=== PATIENT | male | born 1970 | race Caucasian/White ===

== ENCOUNTER 2023-06-26 11:16 | Outpatient (OUT) | payer BC, SELFPAY | END 2023-06-26 11:17 | disposition home or self-care (01) | LOC: PST 11:16 | PROVIDERS: PCP Family Medicine; Visit Provider Surgery | DX: Z01.818 Encounter for other preprocedural examination (principal); Z12.11 Encounter for screening for malignant neoplasm of colon ==

== ENCOUNTER 2023-06-28 07:35 | Day surgery (SDC) | payer BC, SELFPAY ==
[2023-06-28 08:01] VITALS: BP 118/80; PULSE 69; RESP 16; TEMP 35.9; O2SAT 99; BMI 34.5
[2023-06-28] MEDS: LACTATED RINGER'S SOLUTION 1,000 ML 50 ML IV (08:21)
--- NOTE | 2023-06-28 08:42 | PM.GSPRC ---
Date of procedure: 06/28/23 Indications for Procedure: screening for cancer Pre-op diagnosis: screening for cancer Post-op diagnosis: same as pre-op (diverticulosis sigmoid and descending colon) Procedure: colonoscopy Findings: diverticulosis Anesthesia: MAC Surgeon: Sebastian More Procedure Summary: PROCEDURE: The patient was taken to the Endoscopy Suite, placed in the left lateral recumbent position, given IV sedation as above. A rectal digital exam was performed. The sphincter tone was found to be normal. No rectal masses were appreciated. prostate was smooth nonenlarged without nodules.The Olympus video colonoscope was advanced under direct visualization to the rectum, sigmoid colon, descending colon, transverse colon and ascending colon to the ileocecal valve. The underside of the valve was seen. appendiceal lumen was visualized.The scope was slowly withdrawn with air being desufflated as it was withdrawn. No gross tumors or polyps were seen.there were diverticuli in the descending and sigmoid colon. prep was excellent. The patient tolerated the procedure well and went to the Recovery Area in satisfactory condition. I recommend the patient consume high-fiber diet for the rest of his life and have a screening colonoscopy in ten years. Estimated blood loss (mL): 0 Complications: No Pathology: none sent Condition: stable Disposition: PACU
[2023-06-28 10:48] VITALS: BP 91/55; PULSE 72; RESP 16; O2SAT 95
[2023-06-28 11:12] VITALS: BP 100/60; PULSE 63; RESP 16; O2SAT 96
== END 2023-06-28 11:20 | disposition home or self-care (01) ==
PROVIDERS: PCP Family Medicine; Visit Provider Surgery
PROC: (CPT 45378; principal; 2023-06-28 08:40)
DX: Z12.11 Encounter for screening for malignant neoplasm of colon (principal); K57.30 Diverticulosis of large intestine without perforation or abscess without bleeding; I10 Essential (primary) hypertension; E66.9 Obesity, unspecified; Z68.35 Body mass index [BMI] 35.0-35.9, adult; M19.90 Unspecified osteoarthritis, unspecified site; K42.0 Umbilical hernia with obstruction, without gangrene
CPT/HCPCS: 45378; J2704

== ENCOUNTER 2023-07-03 13:16 | Outpatient (OUT) | payer BC, SELFPAY ==
--- NOTE | 2023-07-03 13:17 | ECG_ITS ---
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
== END 2023-07-03 13:17 | disposition home or self-care (01) ==
PROVIDERS: PCP Family Medicine; Visit Provider Surgery
DX: Z01.810 Encounter for preprocedural cardiovascular examination (principal); K42.0 Umbilical hernia with obstruction, without gangrene
CPT/HCPCS: 80053; 93005

== ENCOUNTER 2023-07-05 08:46 | Outpatient (OUT) | payer BC, SELFPAY ==
[2023-07-05 09:09] LABS: Estimated Average Glucose 120 mg/dL; Glycohemoglobin A1C 5.8 % (4.5-6.2)
[2023-07-05 09:14] LABS: Basophils Absolute Auto 0.1 10^3/uL (0.0-0.1); Basophils Percent Auto 1.3 % (0.2-2.0); Eosinophils Absolute Auto 0.5 10^3/uL (0.0-0.7); Eosinophils Percent Auto 6.1 % (0.9-7.0); Hematocrit 38.9 % (42.0-54.0); Hemoglobin 12.3 g/dL (14.0-18.0); Immature Granulocytes Abs Auto 0.02 10^3/uL (0.00-0.03); Immature Granulocytes Pct Auto 0.3 % (0.0-0.5); Lymphocytes Absolute Auto 3.3 10^3/uL (1.2-3.8); Lymphocytes Percent Auto 41.6 % (20.5-60.0); Mean Corpuscular HGB Conc 31.6 g/dL (29.9-35.2); Mean Corpuscular Hemoglobin 23.4 pg (25.9-34.0); Mean Platelet Volume 9.2 fL (9.5-13.5); Monocytes Absolute Auto 0.6 10^3/uL (0.3-0.8); Monocytes Percent Auto 7.8 % (1.7-12.0); Neutrophils Absolute Auto 3.4 10^3/uL (1.4-6.5); Neutrophils Percent Auto 42.9 % (43.0-75.0); Platelet Count 361 10^3/uL (150-450); Red Blood Count 5.26 10^6/uL (4.70-6.10); Red Cell Distribution Width 17.4 % (11.0-15.0)
[2023-07-05 09:59] LABS: Alanine Aminotransferase 59 U/L (16-63); Albumin Level 3.9 g/dL (3.4-5.0); Alkaline Phosphatase 81 U/L (46-116); Anion Gap 13.4; Aspartate Amino Transferase 31 U/L (15-37); BUN Creatinine Ratio 14.2; Bilirubin Total 0.6 mg/dL (0.2-1.0); Carbon Dioxide 26.3 mmol/L (21.0-32.0); Chloride 103 mmol/L (98-107); Chol HDL Ratio 5.4; Cholesterol 207 mg/dL (<=200); Estimated GFR (African America >60 (>=60); Estimated GFR (Non-African Ame 50 (>=60); Globulin 3.8 g/dL; Glucose 103 mg/dL (74-106); HDL Cholesterol 38 mg/dL (40-60); Potassium 3.7 mmol/L (3.5-5.1); Sodium 139 mmol/L (136-145); Thyroid Stimulating Hormone 3.132 uIU/mL (0.358-3.740); Total Protein 7.7 g/dL (6.4-8.2); Triglycerides 174 mg/dL (<=150); VLDL CHOLESTEROL 34.8 mg/dL
[2023-07-05 10:05] LABS: Prostate Specific Antigen Scrn 0.78 ng/mL (<=4.00)
== END 2023-07-05 08:47 | disposition home or self-care (01) ==
LOC: LAB 08:47
PROVIDERS: PCP Family Medicine; Visit Provider Family Medicine
DX: Z00.00 Encounter for general adult medical examination without abnormal findings (principal); Z12.5 Encounter for screening for malignant neoplasm of prostate
CPT/HCPCS: 36415; 80053; 80061; 83036; 84443; 85025; G0103

== ENCOUNTER 2023-07-12 06:28 | Day surgery (SDC) | payer BC, SELFPAY ==
[2023-07-03 13:34] VITALS: BP 118/78; PULSE 79; RESP 18; TEMP 36.2; O2SAT 97; BMI 33.7
[2023-07-12] VITALS (16 sets, daily range): BP systolic 124–135; BP diastolic 80–95; PULSE 64–77; RESP 6–17; TEMP 36.2–36.4; O2SAT 80–100; BMI 32.6
[2023-07-12] MEDS: LACTATED RINGER'S SOLUTION 1,000 ML 50 ML IV (07:13)
--- NOTE | 2023-07-12 07:13 | PM.GSPRC ---
Date of procedure: 07/12/23 Indications for Procedure: incarcerated umbilical hernia Pre-op diagnosis: incarcerated umbilical hernia Post-op diagnosis: same as pre-op Procedure: robotic Incarcerated umbilical hernia repair with mesh Findings: 2.5 cm incarcerated umbilical hernia Anesthesia: RICHARD Surgeon: Sebastian More Procedure Summary: Operative Note: Procedure: Robotic?assisted laparoscopic umbilical?hernia repair with mesh placement; defect measured 2.5 cm Specimens: None Complications: ?None Manuel Burgos karen 53 y/o male and was found to have a umbilical hernia. We offered the patient a robotic umbilical hernia repair. After a thorough explanation of the risks, benefits, and alternatives the patient agreed to proceed with the operation. Procedure in Detail: After again explaining the risks and benefits of the procedure in the preoperative care unit consent was obtained.? The patient was taken back to the operative room and placed on the operative room table. After undergoing general endotracheal anesthesia, preoperative antibiotics were given.? Appropriate time-out was performed.? Right arm was tucked at the side.? Then the bed was a positioned appropriately.? The abdomen was prepped and draped in normal sterile fashion. We entered the abdomen in the left upper quadrant utilizing a 5 mm Visiport.? We began insufflation at low-flow patient tolerated this insufflation of the abdomen was then increased to 15 mmHg.? 2 additional 8 mm robotic trocars placed along the left lateral abdomen under direct visualization. The 5 mm port was then upsized to an 8 mm robotic trocar. The robotic scope and camera were brought in. The [employer] robot was docked. At this point began with taking down the adhesions to the anterior abdominal wall, in the location of the hernia.the peritoneum was taken down for transabdominal preperitoneal repair. This was performed with scissors and electrocautery. The hernia sac was then reduced. The fascia was freed up from the preperitoneal fat. The fascia was reapproximated using 0 V-lock suture. The abdomen was deinsufflated to 8 mmHg to allow adequate closure of the fascia, under no tension. At this time we brought in an appropriately sized piece of mesh as listed above and placed it in the peritoneal pocket. It was Surgipro mesh. 9 cm. Grippies were up.the mesh laid flatly. Once we were happy with mesh placement,peritoneal flap was then closed over the mesh with 3-0 v lock suture in running continuous fashion; the abdomen was desufflated.? Skin was reapproximated with interrupted 4-0 Monocryl.? Steri-Strips were placed over all skin incisions. Sponge, lap, and instrument counts were correct x2 at the end of the procedure. The patient tolerated the procedure well, was extubated in the operating room, and taken to the PACU in excellent condition. ? Manual Arts Therapy Teacher: MIRIAN Recinos Estimated blood loss (mL): 0 Complications: No Pathology: none sent Condition: stable Disposition: PACU
[2023-07-12] MEDS: 0.9 % SODIUM CHLORIDE 10 ML INJ (07:55)
[2023-07-12] MEDS: BUPIVACAINE LIPOSOME/PF 266 MG/13.3 ML VIAL INJ (07:55)
[2023-07-12] MEDS: BUPIVACAINE HCL 0.25% PF 25 MG/10 ML VIAL 20 ML INJ (07:55)
--- NOTE | 2023-07-12 10:53 | RESP.RT ---
Pt initially on simple mask/10L with SpO2 of 91%, sluggish respiratory effort post anesthesia. Placed on 100% FiO2 initially and able to wean down to 30% within 23 minutes post bipap initiation. Removed BiPap and placed on RA at 1023, as pt was awake and alert. 95% SpO2 on RA
== END 2023-07-12 11:30 | disposition home or self-care (01) ==
PROVIDERS: PCP Family Medicine; Visit Provider Surgery
PROC: (CPT 49592; principal; 2023-07-12 07:30)
DX: K42.0 Umbilical hernia with obstruction, without gangrene (principal); I10 Essential (primary) hypertension; E66.9 Obesity, unspecified; Z68.35 Body mass index [BMI] 35.0-35.9, adult; M19.90 Unspecified osteoarthritis, unspecified site
CPT/HCPCS: 49592; 94660; C1781; J2704

== ENCOUNTER 2023-07-20 10:41 | Outpatient (OUT) | payer BC, SELFPAY ==
[2023-07-21 04:07] LABS: Testosterone 366 ng/dL (264-916)
== END 2023-07-20 10:42 | disposition home or self-care (01) ==
LOC: LAB 10:42
PROVIDERS: PCP Family Medicine; Visit Provider Urology
DX: E29.1 Testicular hypofunction (principal)
CPT/HCPCS: 36415; 84403

== ENCOUNTER 2023-08-08 20:54 | Outpatient (OUT) | payer BC, SELFPAY | END 2023-08-08 20:55 | disposition home or self-care (01) | LOC: SLEEP 20:54 | PROVIDERS: PCP Family Medicine; Visit Provider Family Medicine | DX: G47.33 Obstructive sleep apnea (adult) (pediatric) (principal) | CPT/HCPCS: 95810 ==

== ENCOUNTER 2023-08-15 13:52 | Outpatient (OUT) | payer BC, SELFPAY ==
--- NOTE | 2023-08-15 | CONS_ITS ---
CONSULTATION DATE: 08/15/2023 CHIEF COMPLAINT: Includes severe bilateral lower back pain, worse on the left than the right side. HISTORY OF PRESENT ILLNESS: Review of systems, past medical/surgical history were obtained and documented on the health questionnaire and is available upon request. He is a 53-year-old male, reports having pain for many years. He has undergone a radiofrequency ablation of what appears to be L3, L4 and L5 medial branches bilaterally, more than two and a half years ago. He reports he had significant reduction in pain symptoms, lasting approximately two years, with recurrence of pain back to his baseline. He describes his pain as being 4-7/10 pain, sharp in character, increased with activities such as standing, walking, performing transitioning maneuvers. Driving is quite painful for the patient. He denies any change in bowel and bladder habits or new sensorimotor changes in the lower extremities. EXAM: Notable for patient having no clinical radiculopathy or myelopathy involving his lower extremities. Patient did have severe pain when performing lumbar facet loading maneuvers occurring bilaterally at L4-5, L5-S1, worse on the left than the right side, with associated myofascial spasm of the lumbar paravertebral muscles. Spasm actually is worse on the right than the left side, involving the iliocostalis. IMPRESSION: Our impression is patient with chronic pain secondary to lumbosacral spondylosis and myofascial spasm. RECOMMENDATIONS: I have discontinued Flexeril. I have placed him on baclofen 10 mg pills, half a pill b.i.d. and half to one at h.s. I have asked him to undergo lumbosacral spine films, PA and lateral views; aquatic therapy and to proceed with a diagnostic bilateral L4-5, L5-S1 medial branch block bilaterally, under fluoroscopic guidance. As part of providing excellent, safe, comprehensive care, the following was completed at our patient's visit: 1. A medication reconciliation and review to ensure accurate knowledge of current/active medications, including asking our patients to inform us about any [id number] medications or herbal remedies/nutritional supplements/alternative remedies. 2. A review to specifically ensure our patients have had annual screening for: elevated body mass index (BMI, see intake chart for exact total), tobacco use, screening for depression, and screening for unhealthy alcohol use. When screening is concerning, patients are provided with education and the specific recommendation to discuss the concerning health issue and treatment options with their primary care provider. SHAYAN
== END 2023-08-15 13:53 | disposition home or self-care (01) ==
LOC: PM 14:07
PROVIDERS: PCP Family Medicine; Visit Provider Anesthesiology Pain Medicine
DX: M54.50 Low back pain, unspecified (principal); M51.37 Other intervertebral disc degeneration, lumbosacral region; M47.816 Spondylosis without myelopathy or radiculopathy, lumbar region; M62.838 Other muscle spasm
CPT/HCPCS: 72110; G0463

== ENCOUNTER 2023-08-15 15:00 | Outpatient (OUT) | payer BC, SELFPAY ==
--- NOTE | 2023-08-15 15:14 | XR_ITS ---
[facility] [place] [id number] Patient Name: AMADA ROSAS MRN: [id number] date: 1970 Sex: M Assigned Patient Location: [facility] Current Patient Location: Accession/Order Number: [id number] Exam Date: 08/15/2023 15:08 Report Date: 08/16/2023 01:52 At the request of: EMELIA MORE Procedure: XR lumbar spine min 4V EXAMINATION: XR lumbar spine min 4V HISTORY: Low Back Pain , chronic COMPARISON: XR spine lumbar 02/10/2021 FINDINGS: BONES: Mild degenerative facet arthropathy L4-L5, L5-S1. Normal height and alignment of the vertebral bodies. DISC SPACES: Mild narrowing L5-S1. PARASPINOUS: Negative. No paraspinous abnormality is seen. OTHER: Negative. XR/XR lumbar spine min 4V IMPRESSION: 1. Mild degenerative changes of lower lumbar spine with mild progression of L5-S1 degenerative disc disease. Electronically authenticated by: CHRISTOFER SCHAEFFER Date: 08/16/2023 01:52
== END 2023-08-15 15:01 | disposition home or self-care (01) ==
LOC: RAD 15:01
PROVIDERS: PCP Family Medicine; Visit Provider Anesthesiology Pain Medicine
DX: M54.50 Low back pain, unspecified (principal); M51.37 Other intervertebral disc degeneration, lumbosacral region; M47.816 Spondylosis without myelopathy or radiculopathy, lumbar region
CPT/HCPCS: 72110

== ENCOUNTER 2023-08-16 20:55 | Outpatient (OUT) | payer BC, SELFPAY | END 2023-08-16 20:56 | disposition home or self-care (01) | LOC: SLEEP 20:56 | PROVIDERS: PCP Family Medicine; Visit Provider Family Medicine | DX: G47.33 Obstructive sleep apnea (adult) (pediatric) (principal) | CPT/HCPCS: 95811 ==

== ENCOUNTER 2023-08-21 13:58 | Outpatient (RCR) | payer BC, SELFPAY | END 2023-09-10 09:00 | disposition home or self-care (01) | LOC: PT 13:58 | PROVIDERS: PCP Family Medicine; Visit Provider Nurse Practitioner | DX: M47.816 Spondylosis without myelopathy or radiculopathy, lumbar region (principal) | CPT/HCPCS: 20561; 97110; 97113; 97140; 97161 ==

== ENCOUNTER 2023-08-31 07:02 | Day surgery (SDC) | payer BC, SELFPAY ==
[2023-08-31 09:18] VITALS: BP 107/63; PULSE 73; RESP 16; TEMP 36.1; O2SAT 99
[2023-08-31 09:58] VITALS: BP 136/85; PULSE 86; RESP 18; O2SAT 95
[2023-08-31 10:00] VITALS: BP 118/79; PULSE 67; RESP 18; O2SAT 96
[2023-08-31] MEDS: BUPIVACAINE HCL 0.25% PF 25 MG/10 ML VIAL 6 ML INJ (10:05)
--- OUTSIDE RECORDS SUMMARY | 2023-08-31 10:22 | XMS_ITS | CCD ---
Author Name Unknown Address [address] [place] [address] Organization [facility] Care Team Providers Care Credit Authorizer Name Role Phone Kell Bowling MD Primary Care Provider [phone] TAWNYA, DR KELL Monet Primary Care Unavailable KASSIE Isidro, DR LIZBETH Donald Attending Unavaila ble KASSIE Isidro, DR LIZBETH Donald Consulting Unavaila marilin Isidro, DR LIZBETH Donald Admitting Unavaila ble TAWNYA, DR KELL Monet Primary Care Unavailable FISHER ., DR CINTRON Attending Unavailable FISHER ., DR CINTRON Consulting Unavailable FISHER ., DR CINTRON Admitting Unavailable HOY ., DR CORRIGAN Attending Unavailable HOY ., DR CORRIGAN Consulting Unavailable HOY ., DR CORRIGAN Admitting Unavailable BOWLING, DR KELL Monet Primary Care Unavailable BOWLING, DR KELL Monet Primary Care Unavailable GRRONDA ., DR CONNIE Monet Admitting Unavaila ble PEÑA ., DR CNONIE Monet Attending Unavaila ble TAWNYA, DR KELL Monet Primary Care Unavailable GRILLIAme ., DR CONNIE Monet Admitting Unavaila ble PEÑA ., DR CONNIE Monet Attending Unavaila ble TAWNYA, DR KELL Monet Primary Care Unavailable GRRONDA ., DR CONNIE Monet Admitting Unavaila ble PEÑA ., DR CONNIE Monet Attending Unavaila ble TAWNYA, DR KELL Monet Primary Care Unavailable GRILLIAme ., DR CONNIE Monet Attending Unavaila ble PEÑA ., DR CONNIE Monet Consulting Unavaila ble PEÑA ., DR CONNIE Monet Admitting Unavaila ble LAURY, DR CHRISOTFER Hernandez Consulting Unavailable TAWNYA, DR KELL Monet Primary Care Unavailable FISHER ., DR CINTRON Attending Unavailable FISHER ., DR CINTRON Consulting Unavailable FISHER ., DR CINTRON Admitting Unavailable BOWLING, DR KELL Monet Admitting Unavailable BOWLING, DR KELL Monet Attending Unavailable BOWLING, DR KELL Monet Consulting Unavailable TAWNYA, DR KELL Monet Primary Care Unavailable Chata Page Attending Unavailable Chata Page Attending Unavailable Chata Page Attending Unavailable Kell Bowling Unavailable Allergies Allergy Classification Reported Allergen(s) Allergy Type Date of Onset Reaction(s) Facility (1 source) patient allergy list reviewed by nurse or physicia Propensity to adverse reactions 9 Comment:Done [employer] Other (1 source) Allergies Reconciled Propensity to adverse reactions Unknown [employer] Other Medications Current Medications Medication Drug Class(es) Dates Sig (Normalized) Sig (Original) Amoxicillin (1 source) Penicillin-class Antibacterial Amoxicillin Active Atenolol / Chlorthalidone (6 sources) Thiazide-like Diuretic, beta-Adrenergic Daron Start: 08-22-2022 take 1 tablet by mouth once daily Atenolol-Chlortha lidone 50-25mg atenoloL-chlortha lidone 50-25mg, 1 (one) Tablet daily # 90, 08/22/2022, Ref. x1. Active oral daily for 90 *Pick strength-form from [employer] for eRX* Aug, Active Start: 02-05-2021 atenolol-chlor thalidone 50-25 MG tablet cyclobenzaprine hydrochloride 10 mg oral tablet (7 sources) Muscle Relaxant Start: 05-31-2022 take 1 tablet by mouth three times daily as needed cyclobenzaprine 10mg cyclobenzaprine 10mg, 1 (one) Tablet three times daily, as needed # 30, 05/31/2022, No Refill. Active oral three times daily, as needed for 0 *Reorder from [employer] for eRx and Interaction Alerts* May, Active Start: 02-10-2021 End: 05-16-2021 take 1 tablet by mouth at bedtime as needed for muscle spasms cyclobenzaprine 10 MG tablet Indications: Chronic pain syndrome , Myofascial pain Take 1 tablet by mouth at bedtime as needed for Muscle spasms. 30 tablet 2 04/16/2021 05/16/2021 Active diclofenac sodium 75 mg delayed release oral tablet (6 sources) Nonsteroidal Anti-inflammatory Drug Start: 02-05-2021 diclofenac EC [address] tablet DULoxetine 30 mg delayed release oral capsule (8 sources) Serotonin and Norepinephrine Reuptake Inhibitor Start: 02-18-2021 End: 03-20-2021 take 1 capsule by mouth once daily DULoxetine (Cymbalta) [address] Particles capsule DR Indications: Lumbar radiculopathy , Spinal stenosis of cervical region , Chronic pain syndrome Take 1 capsule by mouth daily. 30 capsule 1 02/18/2021 03/17/2021 Discontinued (Reorder) Start: 02-11-2021 End: 04-16-2021 take 1 capsule by mouth once daily DULoxetine [address] Particles capsule DR Indications: Lumbar radiculopathy , Spinal stenosis of cervical region , Chronic pain syndrome Take 1 capsule by mouth daily. 30 capsule 2 03/17/2021 Active Multiple Vitamins-Minerals (PRESERVISION AREDS PO) (5 sources) Multiple Vitamins-Minerals (PRESERVISION AREDS PO) Take by mouth 2 times daily. 0 Active phentermine hydrochloride 37.5 mg oral tablet (1 source) Sympathomimetic Amine Anorectic Start : 08-01 take 1 tablet by mouth once daily before breakfast Adipex-P 37.5 MG 1 tablet before breakfast Orally Once a day for 30 days Jul, Active tadalafil 20 mg oral tablet (1 source) Phosphodiesterase 5 Inhibitor Cialis 20 MG 1 table t prn Active Testosterone (6 sources) Androgen Start : 05-31 AndroGel 1.62 % (20.25mg/1.25 gr AndroGeL 1.62 % (20.25mg/1.25 gr, 2 pumps daily , 05/31/2022, No Refill. Active transdermal for 0 *Reorder from [employer] for eRx and Interaction Alerts* May, Active Start: 01-09-2021 Testosterone 2 0.25 MG/ACT (1.62%) Gel gel APPLY 1 PUMP TOPICALLY EACH MORNING 0 01/09/2021 Active Completed/Discontinued Medications Medication Drug Class(es) Dates Sig (Normalized) Sig (Original) 10 ml lidocaine hydrochloride 20 mg/ml injection (2 sources) Antiarrhythmic, Amide Local Anesthetic Start: 04-16-2021 End: 04-16-2021 lidocaine 2 % injection 100 mg Start: 04-16-2021 End: 04-16-2021 lidocaine 2 % injection 100 mg lidocaine 1% (PF) (XYLOCAINE MPF) 10 mL syringe (2 sources) Start: 02-16-2021 End: 02-24-2021 lidocaine 1% (PF) (XYLOCAINE MPF) 10 mL syringe Problems Active Problems Problem Classification Problem Date Documented Da te Episodic/Chronic Disorders of lipid metabolism (1 source) Mixed hyperlipidemia; Translations: [Mixed hyperlipidemia] Chronic Essential hypertension (3 sources) Essential hypertension; Translations: [Essential (primary) hypertension] Onset: 03-17-2021 03-17-2021 Chronic Other endocrine disorders (4 sources) Testicular hypofunction; Translations: [TESTICULAR HYPOFUNCTION] Onset: 01-06-2023 Chronic Other nervous system disorders (3 sources) Chronic pain syndrome; Translations: [Chronic pain syndrome] Chronic Other nervous system disorders (1 source) Chronic pain; Translations: [Other chronic pain] Chronic Other nervous system disorders (1 source) Other chronic pain Chronic Other nutritional; endocrine; and metabolic disorders (2 sources) Obese class I; Translations: [Obesity, unspecified] Onset: 03-17-2021 03-17-2021 Chronic Other nutritional; endocrine; and metabolic disorders (1 source) Body mass index 30+ - obesity; Translations: [Obesity, unspecified] Chronic Other nutritional; endocrine; and metabolic disorders (1 source) Obesity, unspecified Chronic Other screening for suspected conditions (not mental disorders or infectious disease) (2 sources) Encounter for screening for malignant neoplasm of prostate; Translations: [Blood chemistry abnormal] Onset: 05-30-2022 Episodic Residual codes; unclassified (1 source) Obstructive sleep apnea syndrome; Translations: [Obstructive sleep apnea (adult) (pediatric)] Chronic Residual codes; unclassified (1 source) Obstructive sleep apnea (adult) (pediatric) Chronic Residual codes; unclassified (1 source) Drug compliance good; Translations: [Other specified personal risk factors, not elsewhere classified] Episodic Spondylosis; intervertebral disc disorders; other back problems (5 sources) Arthropathy of cervical spine facet joint; Translations: [Spondylosis without myelopathy or radiculopathy, cervical region] Chronic Spondylosis; intervertebral disc disorders; other back problems (3 sources) Lumbar radiculopathy; Translations: [Radiculopathy, lumbar region] Episodic Past or Other Problems Problem Classification Problem Date Documented Da te Episodic/Chronic Abdominal pain (5 sources) Right upper quadrant pain; Translations: [Epigastric pain] Onset: 08-24-2022 Episodic Other connective tissue disease (4 sources) Myofascial pain; Translations: [Myalgia, other site] Episodic Unclassified (1 source) Low back pain, unspecified M54.50 Results Test Name Value Interpretation Reference Range Facility Ambulatory Visit Summaryon 1 09-25-2022 Ambulatory Visit Summary MANUEL ROSAS :1970 Visit Date:07/26/2023 Ambulatory Visit Instructions Your Diagnosis Male hypogonadism BPH (benign prostatic hyperplasia) Impotence Your Care Team Attending Physician - Camilo FERMIN, Chata Inman Primary Care Physician - KELL BOWLING MD This Is Your Medications List testosterone (testosterone 20.25 mg/1.25 g (1.62%) transdermal gel) Contact prescribing physician if questions or concerns atenolol-chlorthalidone (atenolol-chlorthalidone 50 mg-25 mg Tab) diclofenac (diclofenac sodium 75 mg Oral EC Tab) duloxetine (Cymbalta) tadalafil (Cialis 10 mg Tab) Procedures Performed Hernia (07/12/2023), Vasectomy (08/31/2007), Arthroscopy. Discharge Vitals Heart Rate (Peripheral) 76 Respiratory Rate 16 Blood Pressure 139/88 Height 170 cm Height 67 in Weight 100 kg Weight 220 lb BMI 34.6 What to do next Scheduled Follow-Up Appointments Monday 8:00 AM EST With: Camilo FERMIN, Chata Inman Where: [facility] Lab Reportson 07-26-2023 Lab Reports [id number]#1.00TIFF [facility] Lab Reports [id number]#1.00TI FF [facility] Medication Consenton 023 Medication Consent [id number]#[id number] FF [facility] Patient Educationon 07-26-20 23 Patient Education Urology Benign Prostatic Hyperplasia Benign prostatic hyperplasia (BPH) is an enlarged prostate gland that is caused by the normal aging process. The prostate may get bigger as a man gets older. The condition is not caused by cancer. The prostate is a walnut-sized gland that is involved in the production of semen. It is located in front of the rectum and below the bladder. The bladder stores urine. The urethra carries stored urine out of the body. An enlarged prostate can press on the urethra. This can make it harder to pass urine. The buildup of urine in the bladder can cause infection. Back pressure and infection may progress to bladder damage and kidney (renal) failure. What are the causes? This condition is part of the normal aging process. However, not all men develop problems from this condition. If the prostate enlarges away from the urethra, urine flow will not be blocked. If it enlarges toward the urethra and compresses it, there will be problems passing urine. What increases the risk? This condition is more likely to develop in men older than 50 years. What are the signs or symptoms? Symptoms of this condition include: ? Getting up often during the night to urinate. ? Needing to urinate frequently during the day. ? Difficulty starting urine flow. ? Decrease in size and strength of your urine stream. ? Leaking (dribbling) after urinating. ? Inability to pass urine. This needs immediate treatment. ? Inability to completely empty your bladder. ? Pain when you pass urine. This is more common if there is also an infection. ? Urinary tract infection (UTI). How is this diagnosed? This condition is diagnosed based on your medical history, a physical exam, and your symptoms. Tests will also be done, such as: ? A post-void bladder scan. This measures any amount of urine that may remain in your bladder after you finish urinating. ? A digital rectal exam. In a rectal exam, your health care provider checks your prostate by putting a lubricated, gloved finger into your rectum to feel the back of your prostate gland. This exam detects the size of your gland and any abnormal lumps or growths. ? An exam of your urine (urinalysis). ? A prostate specific antigen (PSA) screening. This is a blood test used to screen for prostate cancer. ? An ultrasound. This test uses sound waves to electronically produce a picture of your prostate gland. Your health care provider may refer you to a specialist in kidney and prostate diseases (urologist). How is this treated? Once symptoms begin, your health care provider will monitor your condition (active surveillance or watchful waiting). Treatment for this condition will depend on the severity of your condition. Treatment may include: ? Observation and yearly exams. This may be the only treatment needed if your condition and symptoms are mild. ? Medicines to relieve your symptoms, including: ? Medicines to shrink the prostate. ? Medicines to relax the muscle of the prostate. ? Surgery in severe cases. Surgery may include: ? Prostatectomy. In this procedure, the prostate tissue is removed completely through an open incision or with a laparoscope or robotics. ? Transurethral resection of the prostate (TURP). In this procedure, a tool is inserted through the opening at the tip of the penis (urethra). It is used to cut away tissue of the inner core of the prostate. The pieces are removed through the same opening of the penis. This removes the blockage. ? Transurethral incision (TUIP). In this procedure, small cuts are made in the prostate. This lessens the prostate's pressure on the urethra. ? Transurethral microwave thermotherapy (TUMT). This procedure uses microwaves to create heat. The heat destroys and removes a small amount of prostate tissue. ? Transurethral needle ablation (TUNA). This procedure uses radio frequencies to destroy and remove a small amount of prostate tissue. ? Interstitial laser coagulation (ILC). This procedure uses a laser to destroy and remove a small amount of prostate tissue. ? Transurethral electrovaporization (TUVP). This procedure uses electrodes to destroy and remove a small amount of prostate tissue. ? Prostatic urethral lift. This procedure inserts an implant to push the lobes of the prostate away from the urethra. Follow these instructions at home: ? Take [id number] and prescription medicines only as told by your health care provider. ? Monitor your symptoms for any changes. Contact your health care provider with any changes. ? Avoid drinking large amounts of liquid before going to bed or out in public. ? Avoid or reduce how much caffeine or alcohol you drink. ? Give yourself time when you urinate. ? Keep all follow-up visits. This is important. Contact a health care provider if: ? You have unexplained back pain. ? Your symptoms do not get better with treatment. ? You develop side effects from the medicine (more content not included)... Normal [facility] Reminderson 07-26-2023 Reminders - From: Meme Haley To: EU - Recalls Lue; Sent: 07/26/2023 11:33:52 EST Show up: 05/26/2024 12:33:00 EDT Subject: Labs Due Date/Time: 07/26/2024 11:33:00 EST Pt will need T Level, HCT and PSA prior to appt. PSA is done by PCP. [facility] Screenson 07-26-2023 Screens [id number]#[id number] FF [facility] Screens [id number]#[id number] FF [facility] Urology Office/Clinic Noteon 07-26-2023 Urology Office/Clinic Note Chief Complaint 6m Testosterone Level HPI Staff 6m Testosterone Level DX: Hypogonadism, Impotence & BPH *Cialis 10mg PRN (occasionally uses 20mg) & Androgel 2 pumps qd PSA 07/05/23- 0.78 CBC/CMP 07/05/23 *BUN 21.0 & Crea 1.48 eGFR 50 *Hgb 12.3 & Hct 38.9 A1C 07/05/23- 5.8 Testosterone 07/20/23- 366 ([id number]) Pt has no concerns at this time. States medications are working well. History of Present Illness Tests reviewed: reviewed UA, PSA, and Testosterone, and external labs I have reviewed the previous health record information and history for this patient from and external providers I have reviewed and verified the staff HPI to be accurate for this encounter. There have been no associated fever, chills, flank pain, or blood in the urine. Denies any urinary infections since last encounter. Review of Systems PHQ Score Initial Depression Screen Score: 0 SCORE ROS - Provider Constitutional: denies weight loss, denies hot flashes. Eyes: denies eye problems. Gastrointestinal: denies nausea, denies vomiting. Cardiovascular: denies chest pain or angina. Integumentary: no dryness Musculoskeletal: denies musculoskeletal symptoms. ENMT: denies otolaryngeal symptoms. Respiratory: no shortness of breath. Heme/Lymph: denies easy bleeding tendency, denies easy bruising tendency. Psychiatric: no confusion, no anxiety. Genitourinary: See HPI. Physical Exam Vitals & Measurements HR: 76(Peripheral) RR: 16 BP: 139/88 HT: 67 in HT: 170 cm WT: 100 kg WT: 220 lb BMI: 34.6 General Appearance: alert, no distress, well nourished, well developed male. Assessment/Plan 53 yo M pt here today for a 6 mos f/u with Testosterone level. Of note, Cr 1.58, eGFR 50 from PCP. No hx kidney stones. Discussed avoiding nephrotoxins, potential changes in BP meds and renal US to ensure no hydro. Pt asymptomatic, will hold off on renal US at this time. Further discuss with PCP regarding renal function trend and medical mgmt. 1. Male hypogonadism (E29.1: Testicular hypofunction) Testosterone: 01/06/23 - 487 06/20/22 - 410 01/19/22 - 324 07/19/21 - 754 07/20/23 - 366 ([phone]) Hgb 12.3 & Hct 38.9 Reviewed labs with pt. Discussed potential changes. Pt using Androgel 2 pumps daily. Pt states that he feels fine with his current dose of AndroGel and would like to keep it how it is. Follow up in 1 yr w/Testosterone and HCT, PSA from PCP. All questions/concerns were discussed. Pt to call the office if he encounters any issues prior. Pt acknowledges understanding. -Will order Testosterone and HCT. -Cont Androgel 2 pumps daily. Refills sent today 2. BPH (benign prostatic hyperplasia) (N40.0: Benign prostatic hyperplasia without lower urinary tract symptoms) IPSS 3(1) PSA (monitored by hospital wellness/PCP) 06/02 - 0.86 07/05/23 - 0.78 Pt denies any bothersome urinary sxs. PSA decreased from prior, remains low -Cont monitoring while on TRT 3. Impotence (N52.9: Male erectile dysfunction, unspecified) MAKI 19(22). Taking Cialis 10 mg PRN. Occasionally uses 20 mg. No side effects or issues, happy with current results. Declined further tx changes at this time -Cont Cialis I spent 25 minutes today with the patient: reviewing tests in preparation to see and discuss them with the patient, obtaining and reviewing external separately obtained history, documenting clinical information in the electronic health records, and care coordination. Time was spent performing a medical exam and evaluation, counseling and educating the patient, and ordering medications, tests in caring for the patient. Follow-up With When Contact Information Camilo FERMIN, Chata Inman, URL, URO In 1 year Additional Instructions: w/Testosterone and HCT Patient Education Benign Prostatic Hyperplasia I, Meme Haley, personally scribed for Dr. Page on 07/26/2023 08:37:01. . Documentation recorded by the scribe, Meme Haley, accurately reflects the services(s) I performed and decisions made by me. Authenticated by Dr. Page on 07/26/2023 08:57:20. Problem List/Past Medical History Ongoing BPH (benign prostatic hyperplasia) Impotence Male hypogonadism Historical No qualifying data Procedure/Surgical History Hernia (07/12/2023), Vasectomy (08/31/2007), Arthroscopy. Medications atenolol-chlorthalidone 50 mg-25 mg Tab Cialis 10 mg Tab, 10 mg= 1 tab(s), Oral, As Directed, PRN, 11 refills Cymbalta, Oral diclofenac sodium 75 mg Oral EC Tab testosterone 20.25 mg/1.25 g (1.62%) transdermal gel, 2 pump, Topical, qAM, 11 refills Allergies No Known Allergies Social History Tobacco Never (less than 100 in lifetime) Tobacco Use:. Never Smokeless Tobacco Use:. Household tobacco concerns: No. Yes, 07/26/2023 Family History Diabetes mellitus type 2: Father. Kidney stone: Father. Immunizations Vaccine Date Status Comments SARS-CoV-2 (COVID-19) mRNA BNT-162b2 vax (more content not included)... Normal [facility] Comment on above: Result Comment: Elec tronically Signed By: Chata Page MD\.br\Date and Time Signed: 07/26/23 08:57 EST\.br\Electronically Co-Signed By: Meme Haley.br\Date and Time Co-Signed: 07/26/23 08:37 EST Lab Reportson 07-24-2023 Lab Reports [id number] F [facility] Ambulatory Visit Summaryon 0 01-11-2023 Ambulatory Visit Summary MANUEL ROSAS :1970 Visit Date:01/11/2023 Ambulatory Visit Instructions Your Diagnosis Impotence Male hypogonadism BPH (benign prostatic hyperplasia) Tests Performed Urnls Dip Stick Auto w/o Microscopy POC 42823 Your Care Team Attending Physician - Camilo FERMIN, Chata Inman Primary Care Physician - KELL BOWLING MD This Is Your Medications List tadalafil (Cialis 10 mg Tab) testosterone (testosterone 20.25 mg/1.25 g (1.62%) transdermal gel) Contact prescribing physician if questions or concerns atenolol-chlorthalidone (atenolol-chlorthalidone 50 mg-25 mg Tab) diclofenac (diclofenac sodium 75 mg Oral EC Tab) duloxetine (Cymbalta) Procedures Performed Vasectomy (08/31/2007), Arthroscopy. What to do next Scheduled Follow-Up Appointments Monday 8:00 AM EST With: Camilo FERMIN, Chata Inman Where: [facility] Patient Educationon 01-12-20 Patient Education Urology Testicular Self-Exam A self-examination of your testicles (testicular self-exam) involves looking at and feeling your testicles for abnormal lumps or swelling. Several things can cause swelling, lumps, or pain in your testicles. Some of these causes are: ? Injuries. ? Inflammation. ? Infection. ? Buildup of fluids around the testicle (hydrocele). ? Twisted testicles (testicular torsion). ? Testicular cancer. You may be at risk for testicular cancer if you have: ? An undescended testicle (cryptorchidism). ? A history of previous testicular cancer. ? A family history of testicular cancer. General tips and recommendations ? The testicles are easiest to examine after a warm bath or shower. They are more difficult to examine when you are cold because the muscles attached to the testicles retract and pull them up higher or into the abdomen. ? A normal testicle is egg-shaped and feels firm. It is smooth and not tender. ? It is normal to feel a firm, spaghetti-like cord at the back of your testicle. This is the spermatic cord. How to do a testicular self-exam 1. Stand and hold your penis away from your body. 2. Look at each testicle to check for changes in appearance, such as swelling or changes in size or shape. 3. Roll each testicle between your thumb and forefinger, feeling the entire testicle. Feel for: ? Lumps. ? Swelling. ? Discomfort. 4. Check the groin area between your abdomen and upper thighs on both sides of your body. Look and feel for any swelling or bumps that are tender. These could be enlarged lymph nodes. Contact a health care provider if: ? You find any bumps or lumps, such as a small, hard, pea-sized lump. ? You find swelling, pain, or soreness. ? You see or feel any other changes in your testicles. Summary ? A self-examination of your testicles (testicular self-exam) involves looking at and feeling your testicles for any changes. ? Check each of your testicles for lumps, swelling, or discomfort. These changes can be caused by many things. ? Check for swelling or tender bumps in your groin area between your lower abdomen and upper thighs. This information is not intended to replace advice given to you by your health care provider. Make sure you discuss any questions you have with your health care provider. Document Revised: 08/03/2020 Document Reviewed: 08/03/2020 [employer] Patient Education ? 2022 [employer] Normal [facility] Screenson 01-11-2023 Screens [id number] :127 Normal [facility] Screens [id number] :127 Normal [facility] Urology Office/Clinic Noteon 01-11-2023 Urology Office/Clinic Note Chief Complaint 6 month follow up HPI Staff 6 month follow up w/testosterone level 487 done 01/06/23, previous testosterone level 410 done 06/20/22. Previous DX: BPH, impotence, male hypogonadism. Pt is currently taking Cialis 10mg PRN, and AndroGel 2 pumps daily-refill on both medications sent to [facility] in [place]. IPSS is , MAKI 22. Dysuria: denies pain or burning Incomplete bladder emptying: denies Hematuria: denies visible blood Frequency: denies Urgency: denies Nocturia: sometimes Stream: denies hesitancy, denies weak stream Leaking: denies Post void dripping: occasionally Wearing pads/ Depends: denies Urge incontinence: denies Stress incontinence: denies Incontinence without Sensory Awareness: denies Abdominal pain: denies Flank pain: denies Sexual complaints: currently taking Cialis and AndroGel both are working well for him History of Present Illness Tests reviewed: reviewed UA, labs. I have reviewed the previous health record information and history for this patient from Dr. Page. I have reviewed and verified the staff HPI to be accurate for this encounter. There have been no associated fever, chills, flank pain, or blood in the urine. Denies any urinary infections since last encounter. Review of Systems PHQ Score Initial Depression Screen Score: 0 ROS - Provider Constitutional: denies weight loss, denies hot flashes. Eyes: denies eye problems. Gastrointestinal: denies nausea, denies vomiting. Cardiovascular: denies chest pain or angina. Integumentary: no dryness Musculoskeletal: denies musculoskeletal symptoms. ENMT: denies otolaryngeal symptoms. Respiratory: no shortness of breath. Heme/Lymph: denies easy bleeding tendency, denies easy bruising tendency. Psychiatric: no confusion, no anxiety. Genitourinary: See HPI. Physical Exam General Appearance: alert, no distress, well nourished, well developed male. Genitourinary: Flank Pain: none. Bladder: nonpalpable. Assessment/Plan 1. Impotence (N52.9: Male erectile dysfunction, unspecified) MAKI 22 (18). Taking Cialis 10 mg PRN. Occasionally uses 20 mg. No side effects or issues, happy with current results. Declined further tx changes at this time -Cont cialis 2. Male hypogonadism (E29.1: Testicular hypofunction) Testosterone: 01/06/23 - 487 06/20/22 - 410 01/19/22 - 324 07/19/21 - 754 Reviewed labs with pt. Using Androgel 2 pumps daily. Refill sent to [facility] [place]. Good range and sx improvement, prior CBC wnl. -Cont Androgel 2 pumps daily -Follow up 6 mos with T level and outside annual labs, or sooner if needed. Pt understands and agrees with plan. 3. BPH (benign prostatic hyperplasia) (N40.0: Benign prostatic hyperplasia without lower urinary tract symptoms) IPSS 1 (2) PSA (monitored by hospital wellness/PCP) 06/02 - 0.86 -Review external PSA at next appt Follow-up With When Contact Information Camilo FERMIN, Chata Inman, URL, URO Additional Instructions: 6 mos t level Patient Education Testicular Self-Exam I, Ericka Mcconnell, personally scribed for Dr. Page on 01/11/2023 10:31:27. . Documentation recorded by the scribe, Ericka Mcconnell, accurately reflects the services(s) I performed and decisions made by me. Authenticated by Dr. Page on 01/11/2023 19:10:32. Problem List/Past Medical History Ongoing BPH (benign prostatic hyperplasia) Impotence Male hypogonadism Historical No qualifying data Procedure/Surgical History Vasectomy (08/31/2007), Arthroscopy. Medications atenolol-chlorthalidone 50 mg-25 mg Tab Cialis 10 mg Tab, 10 mg= 1 tab(s), Oral, As Directed, PRN, 11 refills Cymbalta, Oral diclofenac sodium 75 mg Oral EC Tab testosterone 20.25 mg/1.25 g (1.62%) transdermal gel, 2 pump, Topical, qAM, 11 refills Allergies No Known Allergies Social History Tobacco Never (less than 100 in lifetime) Tobacco Use:. Never Smokeless Tobacco Use:., 01/11/2023 Family History Diabetes mellitus type 2: Father. Kidney stone: Father. Immunizations Vaccine Date Status Comments SARS-CoV-2 (COVID-19) mRNA BNT-162b2 vax 07/21/2022 Recorded SARS-CoV-2 (COVID-19) mRNA-1273 vaccine 08/03/2021 Recorded SARS-CoV-2 (COVID-19) mRNA BNT-162b2 vax 10/21/2020 Recorded SARS-CoV-2 (COVID-19) mRNA BNT-162b2 vax 09/30/2020 Recorded influenza virus vaccine, inactivated 06/2020 Recorded diphtheria/pertussis, acel/tetanus adult 05/09/2017 Given diphtheria/pertussis, acel/tetanus adult 02/08/2013 Given Nursing Judgment given to right deltoid Lab Results Ambulatory Point of Care Results Bilirubin Urine Dipstick: 2+ Moderate (01/11/23 09:53:00) Blood Urine Dipstick: Negative (01/11/23 09:53:00) Glucose Urine Dipstick: Negative (01/11/23 09:53:00) Ketones Urine Dipstick: Trace - 5 mg/dl (01/11/23 09:53:00) Leukocytes Urine Dipstick: Negative (01/11/23 09:53:00) Nitrite Urine Dipstick: Negative (01/11/23 09:53:00) Protein Urine Dips (more content not included)... Normal [facility] Comment on above: Result Comment: Elec tronically Signed By: Chata Page MD\.br\Date and Time Signed: 01/11/23 19:10 EDT\.br\Electronically Co-Signed By: Ericka Mcconnell\.br\Date and Time Co-Signed: 01/11/23 10:32 EDT Lab Reportson 01-10-2023 Lab Reports [id number]: 127 Normal [facility] TESTOSTERONE, TOTALon 2022 Testosterone [Mass/Vol] 487 ng/dL Normal 264-916 [facility] Comment on above: Result Comment: Adul t male reference interval is based on a population of healthy nonobese males (BMI <30) between 19 and 39 years old. bouchra Quinones.al. JCEM 2017,102;6450-8063. PMID: 23774755. Performed By: #### T ESTTOT #### [facility] [address] [address] [address] Mychal Oropeza Pre-Certification Formon Pre-Certification Form [id number]: 127 Normal [facility] Pre-Certification Formon Pre-Certification Form [id number]: 127 Normal [facility] Pre-Certification Formon Pre-Certification Form [id number]: 127 Normal [facility] US SINGLE QUAD RT UPPERon US SINGLE QUAD RT UPPER EXAMINATION: US SINGLE QUAD RT UPPER HISTORY: Right upper quadrant pain COMPARISON: No relevant comparison available. TECHNIQUE: Transabdominal evaluation of the right upper quadrant. FINDINGS: LIVER: Increased echogenicity suggestive of fatty infiltration. Focal area of fat sparing near gallbladder fossa. PORTAL VEIN: Duplex Doppler demonstrates normal hepatopetal flow pattern with flow velocity averaging 19 cm/s. GALLBLADDER: No visible gallstones, wall thickening, or pericholecystic free fluid. Negative sonographic Avila's sign. BILIARY: No abnormal dilation or stones. Common bile duct diameter is within normal limits. PANCREASE: No visible mass, abnormal atrophy, or duct dilation. KIDNEY: No hydronephrosis. No visible mass or stones. Size: 10.5 x 5.2 x 6.3 cm IMPRESSION: 1. Fatty infiltration of liver. 2. Unremarkable gallbladder. Electronically authenticated by: CHRISTOFER SCHAEFFER Date: 2022-08-25 07:07 Normal [facility] Historical Records Officeon 08-19-2022 Historical Records Office [id number]: 127 Normal [facility] Pre-Certification Formon Pre-Certification Form [id number]: 127 Normal [facility] Patient Letter FTMCon 2021 Patient Letter [facility] [place] (Inserted Image. Nga ble to display) August 18, 2022 MANUEL ROSAS [address] [place] [address] MANUEL ROSAS 1970 Dear Whomever it may concern, I'm writing an appeal letter in response to your denial of Androgel therapy for above patient. This patient has been treated for hypogonadism since 2011. Manuel has taken AndroGel for several years and our request was just a continuation of his therapy. Patient is taking the medication for male hypogonadism and NOT age related hypogonadism as put in his previous PA. This was an error on our part. Attached is recent office visit notes with appropriate diagnosis. Thank you for your prompt attention to this matter. Sincerely, Dr. Chata Page MD [facility], [facility] [address] Normal [facility] TESTOSTERONE, TOTALon 2021 Testosterone [Mass/Vol] 410 ng/dL Normal 264-916 [facility] Comment on above: Result Comment: Adul t male reference interval is based on a population of healthy nonobese males (BMI <30) between 19 and 39 years old. Joni, et.al. JCEM 2017,102;9062-6858. PMID: 74480093. Performed By: #### T ESTTOT #### [facility] [address] [place] [address] Dr. Mychal Oropeza CBC AUTO DIFFon 05-27-2022 BASO # 0.1 103/ul Normal 0.0-0.1 [facility] Comment on above: Performed By: #### C BC #### [facility] [address] [address] [address] Mychal Oropeza Basophils/100 WBC (Bld) 0.9 % Normal 0.2-2.0 [facility] Comment on above: Performed By: #### C BC #### [facility] [address] [place] [address] Dr. Mychal Oropeza EO # 0.7 103/ul Normal 0.0-0.7 [facility] Comment on above: Performed By: #### C BC #### [facility] [address] [address] [address] Mychal Oropeza Eosinophils/100 WBC (Bld) 6.7 % Normal 0.9-7.0 [facility] Comment on above: Performed By: #### C BC #### [facility] [address] [address] [address] Mychal Oropeza Erythrocyte distribution width (RBC) [Ratio] 12.8 % Normal 11.0-15.0 [facility] Comment on above: Performed By: #### C BC #### [facility] [address] [place] [address] Dr. Mychal Oropeza Hematocrit (Bld) [Volume fraction] 46.9 % Normal 42.0-54.0 [facility] Comment on above: Performed By: #### C BC #### [facility] [address] [place] [address] Dr. Mychal Oropeza Hemoglobin (Bld) [Mass/Vol] 16.2 g/dL Normal 14.0-18.0 [facility] Comment on above: Performed By: #### C BC #### [facility] [address] [place] [address] Dr. Mychal Oropeza IG # 0.04 10e3/ul Critically high 0.00-0.03 [facility] Comment on above: Performed By: #### C BC #### [facility] [address] [place] [address] Dr. Mychal Oropeza IG % 0.4 % Normal 0.0-0.5 [facility] Comment on above: Performed By: #### C BC #### [facility] [address] [place] [address] Dr. Mychal Oropeza LYMPH # 4.1 103/ul Critically high 1.2-3.8 [facility] Comment on above: Performed By: #### C BC #### [facility] [address] [place] [address] Dr. Mychal Oropeza Lymphocytes/100 WBC (Bld) 37.7 % Normal 20.5-60.0 [facility] Comment on above: Performed By: #### C BC #### [facility] [address] [place] [address] Dr. Mychal Oropeza MANUAL DIFF REQ NO Normal [facility] Comment on above: Performed By: #### C BC #### [facility] [address] [place] [address] Dr. Mychal Oropeza MCH (RBC) [Entitic mass] 30.7 pg Normal 25.9-34.0 [facility] Comment on above: Performed By: #### C BC #### [facility] [address] [place] [address] Dr. Mychal Oropeza MCHC (RBC) [Mass/Vol] 34.5 g/dL Normal 29.9-35.2 [facility] Comment on above: Performed By: #### C BC #### [facility] [address] [place] [address] Dr. Mychal Oropeza MCV (RBC) [Entitic vol] 88.8 fL Normal 80.0-94.0 [facility] Comment on above: Performed By: #### C BC #### [facility] [address] [place] [address] Dr. Mychal Oropeza MONO # 0.9 103/ul Critically high 0.3-0.8 [facility] Comment on above: Performed By: #### C BC #### [facility] [address] [place] [address] Dr. Mychal Oropeza Monocytes/100 WBC (Bld) 8.1 % Normal 1.7-12.0 [facility] Comment on above: Performed By: #### C BC #### [facility] [address] [place] [address] Dr. Mychal Oropeza NEUT # 5.1 103/ul Normal 1.4-6.5 [facility] Comment on above: Performed By: #### C BC #### [facility] [address] [place] [address] Dr. Mychal Oropeza Neutrophils/100 WBC (Bld) 46.2 % Normal 43.0-75.0 [facility] Comment on above: Performed By: #### C BC #### [facility] [address] [place] [address] Dr. Mychal Oropeza Platelet mean volume (Bld) [Entitic vol] 9.7 fL Normal 9.5-13.5 [facility] Comment on above: Performed By: #### C BC #### [facility] [address] [place] [address] Dr. Mychal Oropeza PLT 308 103/ul Normal 150-450 [facility] Comment on above: Performed By: #### C BC #### [facility] [address] [address] [address] Mychal Oropeza RBC 5.28 106/ul Normal 4.70-6.10 [facility] Comment on above: Performed By: #### C BC #### [facility] [address] [place] [address] Dr. Mychal Oropeza WBC 10.9 103/ul Normal 4.0-11.0 [facility] Comment on above: Performed By: #### C BC #### [facility] [address] [place] [address] Dr. Mychal Oropeza GLYCOHEMOGLOBIN A1Con 2021 ADA RECOMMENDATION SEE BELOW Normal [facility] Comment on above: Result Comment: ADA RECOMMENDED LIMIT 4.0 - 6.0 ADA THERAPEUTIC TARGET < 7.0 ACTION SUGGESTED > 7.0 Performed By: #### A 1C #### [facility] [address] [place] [address] Dr. Mychal Oropeza Glucose [Mass/Vol] 108 mg/dL Normal [facility] Comment on above: Performed By: #### A 1C #### [facility] [address] [place] [address] Dr. Mychal Oropeza HbA1c (Bld) [Mass fraction] 5.4 % Normal 4.5-6.2 [facility] Comment on above: Performed By: #### A 1C #### [facility] [address] [place] [address] Dr. Mychal Oropeza LIPID PROFILEon 05-27-2022 CHOL-HDL RATIO NORM SEE BELOW Normal [facility] Comment on above: Result Comment: 3.3 - 4.4 LOW RISK 4.4 - 7.1 AVERAGE RISK 7.1 - 11.0 MODERATE RISK >11.0 HIGH RISK Performed By: #### T SH, LIPID, CMP #### [facility] [address] [address] [address] Mychal Oropeza Cholesterol [Mass/Vol] 207 mg/dL Critically high <=200 [facility] Comment on above: Performed By: #### T SH, LIPID, CMP #### [facility] [address] [address] [address] Mychal Oropeza Cholesterol in HDL [Mass/Vol] 47 mg/dL Normal 40-60 [facility] Comment on above: Performed By: #### T SH, LIPID, CMP #### [facility] [address] [address] [address] Mychal Oropeza Cholesterol in LDL [Mass/Vol] 122.4 mg/dL Normal [facility] Comment on above: Performed By: #### T SH, LIPID, CMP #### [facility] [address] [place] [address] Dr. Mychal Oropeza Cholesterol.total/Ch olesterol in HDL [Mass ratio] 4.4 {ratio} Normal [facility] Comment on above: Performed By: #### T SH, LIPID, CMP #### [facility] [address] [place] [address] Dr. Mychal Oropeza HDL NORMAL > or = 60 mg/dl - LO W CARDIOVASCULAR RISK <40 mg/dl - HIGH CARDIOVASCULAR RISK Normal [facility] Comment on above: Performed By: #### T SH, LIPID, CMP #### [facility] [address] [address] [address] Mychal Oropeza LDL CALC NORMAL SEE BELOW Normal [facility] Comment on above: Result Comment: <100 mg/dl OPTIMAL 100 - 129 mg/dl NEAR OR ABOVE OPTIMAL 130 - 159 mg/dl BORDERLINE HIGH 160 - 189 mg/dl HIGH >190 mg/dl VERY HIGH Performed By: #### T SH, LIPID, CMP #### [facility] [address] [place] [address] Dr. Mychal Oropeza Triglyceride [Mass/Vol] 188 mg/dL Critically high <=150 [facility] Comment on above: Performed By: #### T SH, LIPID, CMP #### [facility] [address] [address] [address] Mychal Oropeza VLDL CALC 37.6 mg/dL Normal [facility] Comment on above: Performed By: #### T SH, LIPID, CMP #### [facility] [address] [address] [address] Mychal Oropeza PROF 14(COMP METB)on 022 Albumin [Mass/Vol] 3.9 g/dL Normal 3.4-5.0 [facility] Comment on above: Performed By: #### T SH, LIPID, CMP #### [facility] [address] [address] [address] Mychal Oropeza Albumin/Globulin [Mass ratio] 1.1 {ratio} Normal [facility] Comment on above: Performed By: #### T SH, LIPID, CMP #### [facility] [address] [place] [address] Dr. Mychal Oropeza ALP [Catalytic activity/Vol] 77 U/L Normal 46-116 [facility] Comment on above: Performed By: #### T SH, LIPID, CMP #### [facility] [address] [place] [address] Dr. Mychal Oropeza ALT [Catalytic activity/Vol] 56 U/L Normal 16-63 [facility] Comment on above: Performed By: #### T SH, LIPID, CMP #### [facility] [address] [address] [address] Mychal Oropeza Anion gap [Moles/Vol] 8.6 mmol/L Normal [facility] Comment on above: Performed By: #### T SH, LIPID, CMP #### [facility] [address] [address] [address] Mychal Oropeza AST [Catalytic activity/Vol] 30 U/L Normal 15-37 [facility] Comment on above: Performed By: #### T SH, LIPID, CMP #### [facility] [address] [address] [address] Mychal Oropeza Bilirubin [Mass/Vol] 0.6 mg/dL Normal 0.2-1.0 [facility] Comment on above: Performed By: #### T SH, LIPID, CMP #### [facility] [address] [address] [address] Mychal Oropeza Calcium [Mass/Vol] 9.2 mg/dL Normal 8.5-10.1 [facility] Comment on above: Performed By: #### T SH, LIPID, CMP #### [facility] [address] [place] [address] Dr. Mychal Oropeza Chloride [Moles/Vol] 100 mmol/L Normal 98-107 [facility] Comment on above: Performed By: #### T SH, LIPID, CMP #### [facility] [address] [place] [address] Dr. Mychal Oropeza CO2 [Moles/Vol] 30.0 mmol/L Normal 21.0-32.0 [facility] Comment on above: Performed By: #### T SH, LIPID, CMP #### [facility] [address] [place] [address] Dr. Mychal Oropeza Creatinine [Mass/Vol] 1.37 mg/dL Critically high 0.70-1.30 [facility] Comment on above: Performed By: #### T SH, LIPID, CMP #### [facility] [address] [place] [address] Dr. Mychal Oropeza EGFR-AF [place] >60 Normal >=60 [facility] Comment on above: Performed By: #### T SH, LIPID, CMP #### [facility] [address] [place] [address] Dr. Mychal Oropeza EGFR-NON AF [place] 55 mL/min/1.73m2 Critically low >=60 [facility] Comment on above: Performed By: #### T SH, LIPID, CMP #### [facility] [address] [place] [address] Dr. Mychal Oropeza Globulin (S) [Mass/Vol] 3.7 g/dL Normal [facility] Comment on above: Performed By: #### T SH, LIPID, CMP #### [facility] [address] [place] [address] Dr. Mychal Oropeza Glucose [Mass/Vol] 111 mg/dL Critically high 74-106 [facility] Comment on above: Performed By: #### T KADIE, LIPID, CMP #### [facility] [address] [address] [address] Mychal Oropeza Potassium [Moles/Vol] 3.6 mmol/L Normal 3.5-5.1 [facility] Comment on above: Performed By: #### T KADIE, LIPID, CMP #### [facility] [address] [address] [address] Mychal Oropeza Protein [Mass/Vol] 7.6 g/dL Normal 6.4-8.2 [facility] Comment on above: Performed By: #### T KADIE LIPID, CMP #### [facility] [address] [place] [address] Dr. Mychal Oropeza Sodium [Moles/Vol] 135 mmol/L Critically low 136-145 [facility] Comment on above: Performed By: #### T KADIE, LIPID, CMP #### [facility] [address] [place] [address] Dr. Mychal Oropeza Urea nitrogen [Mass/Vol] 14.0 mg/dL Normal 7.0-18.0 [facility] Comment on above: Performed By: #### T KADIE LIPID, CMP #### [facility] [address] [place] [address] Dr. Mychal Oropeza Urea nitrogen/Creatinine [Mass ratio] 10.2 mg/mg Normal [facility] Comment on above: Performed By: #### T KADIE, LIPID, CMP #### [facility] [address] [place] [address] Dr. Mychal Oropeza TSHon 05-27-2022 TSH 2.907 uIU/mL Normal 0.358-3.740 [facility] Comment on above: Performed By: #### T KADIE, LIPID, CMP #### [facility] [address] [place] [address] Dr. Mychal Oropeza TESTOSTERONE, TOTALon 2021 Testosterone [Mass/Vol] 324 ng/dL Normal 264-916 [facility] Comment on above: Result Comment: Adul t male reference interval is based on a population of healthy nonobese males (BMI <30) between 19 and 39 years old. Joni, et.al. JCEM 2017,102;9118-1117. PMID: [id number]. Performed By: #### T ESTTOT #### [facility] [address] [address] [address] Mychal Oropeza XR SPINE CERVICAL WITH OBL A ND FLEX/EXTon 02-10-2021 XR SPINE CERVICAL WITH OBL AND FLEX/EXT EXAM: XR SPINE CERVICAL WITH OBL AND FLEX/EXT HISTORY: Neck pain. COMPARISON: None. TECHNIQUE: Lateral neutral, flexion, and extension views were obtained. There are bilateral oblique views. There is an AP and odontoid projection. FINDINGS: There is mild reversal of the normal cervical lordosis in the lateral view. All seven cervical segments are seen. There is no fracture, subluxation, or listhesis. There is moderate C5-C6 and C6-C7 disc space narrowing. There is mild narrowing at C4-C5. Spondylitic changes both anteriorly and posteriorly are seen from C4 through C7. Prevertebral soft tissues are satisfactory. C1-C2 appears anatomically aligned. Flexion and extension views show reasonably good flexion and limited extension. No instability or listhesis is seen. C1-C2. Anatomically aligned. The oblique views are not optimal. I do believe there is neural foraminal narrowing at C5-C6 and C6-C7 bilaterally. IMPRESSION: 1. Normal alignment without fracture. 2. Moderate degenerative disc space narrowing and spondylitic changes are seen from C5 through C7. Mild narrowing is seen at C4-C5. 3. On the oblique views I suspect some bony neural foraminal encroachment from C5 through C7 bilaterally. 4. Restrictive range of motion in extension is seen. There is fair flexion. No instability is noted. Normal [facility] XR SPINE LUMBAR W BENDINGon 02-10-2021 XR SPINE LUMBAR W BENDING EXAM: XR SPINE LUMBAR W BENDING HISTORY: back pain COMPARISON: None. TECHNIQUE: AP, both oblique and lateral neutral, flexion and extension views were performed. FINDINGS: There appear to be 4 typical lumbar segments and some mild transitional changes of L5. Pedicles appear normal. The alignment is anatomic. I see no pars defects. There is good preservation of the disc spaces. No compression deformity is seen. Very minimal endplate degenerative change and anterior osteophytes are seen off L4 and L5. Flexion and extension views show very good range of motion. There is no listhesis or instability. IMPRESSION: Lumbar spine visually is fairly well preserved. There is no evidence of fracture, listhesis, significant disc space narrowing or major degenerative changes. There is a very good range of motion without instability. Normal [facility] XR SPINE LUMBAR W BENDINGOrd ered By: Maik Barbosa on 02-10-2021 IMPRESSION: Lumbar s pine visually is fairly well preserved. There is no evidence of fracture, listhesis, significant disc space narrowing or major degenerative changes. There is a very good range of motion without instability. [facility] EXAM: XR SPINE LUMBA R W BENDING HISTORY: back pain COMPARISON: None. TECHNIQUE: AP, both oblique and lateral neutral, flexion and extension views were performed. FINDINGS: There appear to be 4 typical lumbar segments and some mild transitional changes of L5. Pedicles appear normal. The alignment is anatomic. I see no pars defects. There is good preservation of the disc spaces. No compression deformity is seen. Very minimal endplate degenerative change and anterior osteophytes are seen off L4 and L5. Flexion and extension views show very good range of motion. There is no listhesis or instability. [facility] User, Interfaces - 02/10/2021 4:52 PM EDT EXAM: XR SPINE LUMBAR W BENDING HISTORY: back pain COMPARISON: None. TECHNIQUE: AP, both oblique and lateral neutral, flexion and extension views were performed. FINDINGS: There appear to be 4 typical lumbar segments and some mild transitional changes of L5. Pedicles appear normal. The alignment is anatomic. I see no pars defects. There is good preservation of the disc spaces. No compression deformity is seen. Very minimal endplate degenerative change and anterior osteophytes are seen off L4 and L5. Flexion and extension views show very good range of motion. There is no listhesis or instability. IMPRESSION IMPRESSION: Lumbar spine visually is fairly well preserved. There is no evidence of fracture, listhesis, significant disc space narrowing or major degenerative changes. There is a very good range of motion without instability. [facility] Vital Signs Date Time Vital Sign Value Performing Clinician Facility 08-01-2023 08:30-0500 Body height 170.18 cm Kell Lino [employer] Other 08-01-2023 08:30-0500 Body mass index (BMI) [Ratio] 35.14 kg/m2 Kell Bowling Other [employer] Other 08-01-2023 08:30-0500 Body weight 101.79 kg Kell Bowling Other [employer] Other 08-01-2023 08:30-0500 Diastolic blood pressure 82 mm[Hg] Kell Bowling Other [employer] Other 08-01-2023 08:30-0500 Systolic blood pressure 118 mm[Hg] Kell Bowling Other [employer] Other 04-16-2021 12:05-0400 Diastolic blood pressure 97 mm[Hg] Maik Barbosa MD [facility] 04-16-2021 12:05-0400 Heart rate 54 /min Maik Barbosa MD Work Phone: [facility] [facility] 04-16-2021 12:05-0400 Respiratory rate 16 /min Maik Barbosa MD [facility] 04-16-2021 12:05-0400 SaO2% (BldA) [Mass fraction] 95 % Maik Barbosa MD Work Phone: [facility] 04-16-2021 12:05-0400 Systolic blood pressure 142 mm[Hg] Maik Barbosa MD Work Phone: [employer] [facility] 03-17-2021 08:04-0400 Body height 170.2 cm Maik Barbosa MD Work Phone: [employer] 03-17-2021 08:04-0400 Body mass index (BMI) [Ratio] 34.61 kg/m2 Maik Barbosa MD Work Phone: [facility] 03-17-2021 08:04-0400 Body weight 100.25 kg Maik Barbosa MD Work Phone: [facility] 03-17-2021 08:04-0400 Diastolic blood pressure 93 mm[Hg] Maik Barbosa MD Work Phone: [facility] 03-17-2021 08:04-0400 Heart rate 74 /min Maik Barbosa MD Work Phone: [facility] 03-17-2021 08:04-0400 Respiratory rate 20 /min Maik Barbosa MD Work Phone: [facility] 03-17-2021 08:04-0400 SaO2% (BldA) [Mass fraction] 96 % Maik Barbosa MD Work Phone: [facility] 03-17-2021 08:04-0400 Systolic blood pressure 132 mm[Hg] Maik Barbosa MD Work Phone: [facility] 02-24-2021 12:02-0400 Diastolic blood pressure 100 mm[Hg] Maik Barbosa MD Work Phone: [facility] 02-24-2021 12:02-0400 Heart rate 55 /min Maik Barbosa MD Work Phone: [facility] 02-24-2021 12:02-0400 Respiratory rate 18 /min Maik Barbosa MD Work Phone: [facility] 02-24-2021 12:02-0400 SaO2% (BldA) [Mass fraction] 95 % Maik Barbosa MD Work Phone: [facility] 02-24-2021 12:02-0400 Systolic blood pressure 141 mm[Hg] Maki Barbosa MD Work Phone: [facility] 02-10-2021 11:46-0400 Body height 170.2 cm Maik Barbosa MD Work Phone: [facility] 02-10-2021 11:46-0400 Body mass index (BMI) [Ratio] 34.61 kg/m2 Maik Barbosa MD Work Phone: [facility] 02-10-2021 11:46-0400 Body weight 100.25 kg Maik Barbosa MD Work Phone: [facility] 02-10-2021 11:46-0400 Diastolic blood pressure 81 mm[Hg] Maik Barbosa MD Work Phone: [facility] 02-10-2021 11:46-0400 Heart rate 64 /min Maik Babrosa MD Work Phone: [facility] 02-10-2021 11:46-0400 Respiratory rate 18 /min Maik Barbosa MD Work Phone: [facility] 02-10-2021 11:46-0400 SaO2% (BldA) [Mass fraction] 99 % Maik Barbosa MD Work Phone: [facility] 02-10-2021 11:46-0400 Systolic blood pressure 121 mm[Hg] Maik Barbosa MD Work Phone: [facility] Encounters Encounter Date Encounter Type Care Provider Facility Start: 07-31-2024 ambulatory Chata Page Facility:[facility] Start: 08-01-2023 End: 08-01-2023 ambulatory Kell Bowling Other [employer] Other Start: 08-01-2023 Encounter for genera l adult medical examination without abnormal findings Kell Bowling [facility] Start: 08-01-2023 Periodic preventive med est patient 40-64yrs Kell Bowling [facility] Start: 07-26-2023 End: 07-27-2023 ambulatory Chata Page Facility:[facility] Start: 01-11-2023 End: 01-12-2023 ambulatory Chata Page Facility:[facility] Start: 01-06-2023 End: 01-07-[address] KELL BOWLING Facility:[facility] Start: 08-24-2022 End: 08-25-[address] KELL BOWLING Facility:[facility] Start: 08-08-[address] KELL BOWLING Facil ity:[facility] Start: 07-30-[address] KELL BOWLING Facil ity:[facility] Start: 07-25-[address] KELL BOWLING Facil ity:[facility] Start: 07-21-2022 End: 07-22-[address] MEENU ORELLANA . Facility:[facility] Start: 06-20-2022 End: 06-21-[address] KELL BOWLING Facility:[facility] Start: 05-30-2022 Encounter for genera l adult medical examination without abnormal findings DR KELL BOWLING [facility] Start: 05-27-2022 End: 05-28-[address] KELL BOWLING Facility:[facility] Start: 05-27-2022 End: 05-28-2022 Encounter for general adult medical examination without abnormal findings DR KELL BOWLING Facility:[facility] Start: 01-19-2022 End: 01-20-[address] KELL BOWLING Facility:[facility] Start: 04-16-2021 End: 04-16-2021 Patient encounter procedure Maik Barbosa MD Work Phone: [facility] Procedural Pain Management Comment on above: Lumbar spondylosis ( Primary Dx); Chronic pain syndrome; Myofascial pain Start: 03-17-2021 End: 03-17-2021 Office outpatient visit 15 minutes Maik Barbosa MD Work Phone: [facility] Comment on above: Lumbar spondylosis ( Primary Dx); Lumbar radiculopathy; Spinal stenosis of cervical region; Chronic pain syndrome; Myofascial pain Start: 02-24-2021 End: 02-24-2021 Clinical Support Encounter Maik Barbosa MD [facility] Comment on above: Myofascial pain (Ara reji Dx) Start: 02-10-2021 End: 02-10-2021 Subsequent hospital visit by physician Maik Barbosa MD Work Phone: [facility] Diagnostic Radiology Comment on above: Arrived Start: 02-10-2021 End: 02-10-2021 Office outpatient new 45 minutes Maik Barbosa MD Work Phone: [facility] Comment on above: Myofascial pain (Ara reji Dx); Arthropathy of cervical facet joint; Spondylosis of lumbar region without myelopathy or radiculopathy; Chronic pain syndrome; Compliance with medication regimen Procedures Date Procedure Procedure Detail Performing Clinician Start: 05-27-[address] KELL BOWLING Comment on above: Performed By: #### P [facility] #### [facility] [address] [place] [address] Dr. Mychal Oropeza Start: 02-10-2021 Radex spine lumbscrl compl w/bending views min 6 Maik Barbosa MD Work Phone: Plan of Treatment Date Care Activity Detail Author Start: 05-21-2021 End: 05-21-2021 Patient encounter procedure 05/21/2021 Office Visit Anesthesiology Pain Maik Carbajal MD [address] [place] [address] [facility] Start: 05-12-2021 Influenza vaccination A [facility] Start: 05-07-2021 End: 05-07-2021 Patient encounter procedure 05/07/2021 Office Visit Anesthesiology Pain Maik Carbajal MD [address] [place] [address] [facility] [place] Start: 05-03-2021 End: 05-03-2021 Patient encounter procedure 05/03/2021 Office Visit Anesthesiology Pain Maik Carbajal MD [address] [place] [address] [phone] [facility] Start: 04-27-2021 End: 04-27-2021 Patient encounter procedure 04/27/2021 Office Visit Anesthesiology Pain Maik Carbajal MD [address] [place] [address] [facility] Start: 03-17-2021 End: 03-17-2021 Patient encounter procedure 03/17/2021 Office Visit Anesthesiology Pain Mgt Maik Barbosa MD [address] [place] [address] [phone] [facility] Start: 02-24-2021 End: 02-24-2021 Patient encounter procedure 02/24/2021 Office Visit Anesthesiology Pain Mgt Maik Barbosa MD [address] [place] [address] [phone] [facility] [place] [facility] Start: 02-10-2021 End: 02-11-2021 DRUG SCREEN MED COMPLIANCE I DRUG SCREEN MED COMPLIANCE I Lab Routine Compliance with medication regimen Expected: 02/10/2021, Expires: 02/11/2021 [facility] Comment on above: Expected: 02/10/2021 , Expires: 02/11/2021 Start: 02-08-2020 Prostate specific antigen measurement PROSTATE CANCER SCREENING DISCUSSION [facility] Start: 02-08-2020 Zoster vaccine hzv l wilmar for subcutaneous use ZOSTER (SHINGLES) VACCINE (1 of 2) [facility] Start: 2015 Colonoscopy COLORECTAL CAN CER SCREENING DISCUSSION [facility] Start: 2010 Fasting lipid profile LIPID SCREENIN G [facility] Start: 1989 Third diphtheria, tetanus and acellular pertussis (DTaP) vaccination TDAP (ADULT) [facility] Start: 02-08-1988 Tetanus vaccination TETANUS [facility] Start: 1985 HIV screening HIV SCREENING DISCUSSI ON [facility] Start: 1982 COVID-19 VACCINE (1) COVID-19 VACCIN E (1) [facility] Start: 1970 Hepatitis C antibody , confirmatory test HEPATITIS C VIRUS SCREENING [facility] Payers Date Payer Category Payer Unknown [id number] 2019 Unknown [id number] 2018 Unknown [id number] 1970 Unknown [id number] 2.16.84 [id number] 1970 Unknown [id number] 2.16.84 [id number] 1970 Unknown [id number] 2.16.84 [id number] 1970 Unknown [id number] 2.16.84 [id number] 1970 Unknown [id number] 2.16.84 [id number] 1970 Unknown [id number] 2.16.84 [id number] 1970 Unknown [id number] 2.16.84 [id number] 1970 Unknown [id number] 2.16.84 [id number] 1970 Unknown [id number] 2.16.8 [id number] 1970 Unknown [id number] 2.16.8 [id number] 1970 Unknown [id number] 2.16.8 [id number] 1959 Self-pay [id number] Unknown [id number] 2.16.84 [id number] Unknown [id number] Social History Date Type Detail Facility Start: 02-10-2021 End: 03-17-2021 Tobacco smoking status NHIS Never smoker [facility] Start: 02-10-2021 End: 03-17-2021 Tobacco use and exposure Never used [facility] Start: 02-10-2021 End: 03-17-2021 Alcohol intake Current drinker of alcohol (finding) [facility] Start: 02-10-2021 End: 03-17-2021 Alcohol intake [facility] Start: 02-10-2021 Alcohol Comment 5 beers/week [facility] Start: 1970 Sex Assigned At Not on file A [employer] Sex Assigned At Sex Assigned At Bir th [employer] Other Clinical Notes 02-10-2021 to 08-01-2023 Note Date & Type Note Facility 08-01-2023 Evaluation note Encounter Date Diagnosis Assessment Notes Jul, Well adult exam (ICD-10 - Z00.00) We have discussed the necessity of following up with PCP regularly as well as specialists, as needed. Discussed F/U with dentistry and optometry at least yearly. Discussed all preventative measures/ cancer screenings as applicable to this patient. Emphasized the importance of a reduced fat, low carb diet to promote heart health and controlled blood sugars. Reviewed social history and ensured patient is safe within the home today. Pt denies any abuse of alcohol, nicotine, caffeine or recreational drugs. I have ensured patient is of stable mental and physical health today. We have discussed appropriate F/U schedule as well as blood work and vaccinations that apply. All questions answered and patient is sent home pleased, without concerns. Jul, Low back pain, unspecified (ICD-10 - M54.50) Pt requests referral [facility]. He hopes to lessen his use of NSAIDs to improve his renal function. Jul, Other chronic pain (ICD-10 - G89.29) Jul, JOSÉ (obstructive sleep apnea) (ICD-10 - G47.33) Form completed for [facility]. Jul, Class 2 obesity with body mass index (BMI) of 35 to 39.9 without comorbidity (ICD-10 - E66.9) Patient has clearly made a good michael effort for several months on her own to lose weight with little success. Pt to start Adipex daily. Medication is a stimulant. May cause you to be jittery or constipated. Take in the morning, may also take stool softener daily as needed. Continue to eat a healthy well balanced diet and continue work-out regimine. Pt aware that this is not a cure for obesity but a tool used to help them during their weight loss plateau. Pt aware that they need to continue to work hard at weight loss or the weight will be regained. Side effects discussed and understood. Pt education printed and discussed. Pt notified of prescribing schedule with 30 day dispensing, no refills, for up to 12 weeks, with a 6 month break in-between treatments. Id SOB, CP, mood changes, tachycardia, HTN, headaches, blurred vision occur, go to ER and Follow-up with me immediately. [employer] Other 08-06-2021 History and physical note* Maik Barbosa MD - 04/16/2021 11:30 AM EDT HPI: This 51 y.o. male presents for treatment of chronic back Pain. Current Outpatient Medications: atenolol-chlorthalidone 50-25 MG tablet, , Disp: , Rfl: cyclobenzaprine 10 MG tablet, Take 1 tablet by mouth at bedtime as needed for Muscle spasms., Disp:30 tablet, Rfl: 2 diclofenac EC [address] tablet, , Disp: , Rfl: DULoxetine [address] Particles capsule DR, Take 1 capsule by mouth daily., Disp: 30 capsule, Rfl: 2 Multiple Vitamins-Minerals (PRESERVISION AREDS PO), Take by mouth 2 times daily., Disp: , Rfl: Testosterone 20.25 MG/ACT (1.62%) Gel gel, APPLY 1 PUMP TOPICALLY EACH MORNING, Disp: , Rfl: No past medical history on file. No past surgical history on file. No family history on file. Review of Systems: General: Denies fevers, chills, or night sweats Abdominal: Denies nausea, vomiting, diarrhea Respiratory: Denies cough, sputum production Genitourinary: Denies dysuria or frequency Vitals: 04/16/21 1111 BP: 129/90 Pulse: 64 Resp: 20 Physical Examination: Vitals: 04/16/21 1111 BP: 129/90 Pulse: 64 Resp: 20 Constitutional The patient is awake, alert, well developed, well nourished and well groomed. The patient is pleasant and cooperative. The patient is a good historian and is very helpful with the history and physical examination. Musculoskeletal The patient has moderate difficulty transitioning from sitting to standing. The patient has a(n) antalgic gait. The lumbar spine demonstrates a flexion biased curve. There is no deformity to the lumbosacral spine. There is no abnormality in muscle tone in the lumbosacral spine. Cervical spine alignment has a slight extension based curve. Lumbar and cervical spine ROM with flexion, rotation, and extension are all mildly limited (moderate in cervical spine) bilateral lumbar paraspinal tenderness and trigger points were noted in bilateral lumbar paraspinalmuscles. there are trigger points present in the cervical paraspinal, rhomboid, trapezius, and levator scapulae muscles on the bilateral side. cervical facet loading is positive bilaterally Spurling's is negative. Lumbar facet loading positive L>R but significant bilaterally, TTP over bilateral lumbar paraspinals Neurologic Cranial Nerves 2-12 are grossly intact. The deep tendon reflexes of the in bilateral upper extremities are symmetrical;. Plantar reflexes (Babinski): toes are downgoing. Cerebellar function is normal; Romberg's test is negative. The gait is normal. Sensory testing for pain (pinprick), light touch, and proprioception is intact in bilateral upper extremties. No ankle or wrist clonus present. Negative Mcconnell's sign. Motor in bilateral upper extremities is 5/5 Psychiatric The patient is oriented to person, place, and time. Speech is fluent and words are clear. Thought processes are coherent, insight is good. There are no obsessive, compulsive, phobic or delusional thoughts; there are no illusions or hallucinations. The patient's fund of knowledge: awareness of current events and past history is appropriate for age. The patient's higher cognitive functions are intact. The patient's mood is neutral and the affect appropriate; there are no loose associations. Assessment: ICD-10-CM 1. Lumbar spondylosis M47.816 2. Chronic pain syndrome G89.4 3. Myofascial pain M79.18 Plan: Proceed with bilateral lumbar facet block documented in this [facility]08-06-2021 History of Present illness Narrative* Humera Genao RN - 04/16/2021 11:30 AM EDT SCRUB - Shellie Alaniz RN RT - S RT Zach INDUSTRIAL RELATIONS OFFICER - N/A ROUTING EQUIPMENT TENDER - Aurelio Genao RN Site cleansed with hibiclens. * Maik Barbosa MD - 04/16/2021 11:30 AM EDT Procedures PROCEDURE: Bilateral L4-5, and L5-S1 Facet Joint Block under Fluoroscopic Guidance ATTENDING PHYSICIAN: Maik Barbosa MD PREOPERATIVE DIAGNOSIS(ES): Lumbar Spondylosis POSTOPERATIVE DIAGNOSIS: SAME ANESTHESIA: Local COMPLICATIONS: The patient tolerated the procedure well with no complications. INDICATIONS FOR PROCEDURE: This 51 y.o. year old patient presents for bilateral low back pain. Pain is worsened with standing,sitting, and walking. The patient presents for bilateral lumbar facet block. CONSENT: The patient was given a verbal description of the intended procedure including the risks and benefits of the procedure. The patient was than able to provide written informed consent for the above procedure. UNIVERSAL PROTOCOL/ TIMEOUT: Preprocedure verification is complete- patient verified and consents confirmed. PROCEDURE DETAILS: The Physicians performing the procedure performed handwashing with alcohol based hand wash and usedsterile gloves for the procedure. All personnel in the room wore masks. The patient was placed prone on a fluoroscopy table. The lumbar spine was prepped and draped in the usual sterile fashion usingHibiclens prep. A C-arm Fluoroscope was brought into the field and used to obtain an AP radiograph of the lumbar spine. The junction of the sacral ala and sacral superior articular process was identified. A 25 G 3.5 inch angulated quincke needle was advanced under intermittent fluoroscopic guidanceto make osseous contact with the junction of the sacral ala and the superior articular process at L5-S1. The patient did not have any pain or paresthesia at this time. Then the C-arm was advanced superiorly and obliqued 20 degrees to the left at the L5 level to demonstrate the junction of the transverse process and the superior articular process. A 25 G 3.5 inch angulated quincke needle was advanced under intermittent fluoroscopic guidance to make osseous contact. The patient did not experienceany pain or paresthesia at this time. The procedure was then repeated at the L4 levels. Then after all needles were in place a lateral radiograph was taken to check for proper placement of the needles. Any necessary adjustments to the needles was made under intermittent fluoroscopy. Then after negative aspiration for blood CSF or any other body fluid, 0.5 ml of 2% lidocaine was injected at each level. With needle placement at the junction of the transverse process and superior articular processat L4, L5, and the ipsilateral sacral ala the L4-5 facet, and the L5-S1 facet have been anesthetized. The procedure was then repeated in the exact same fashion on the contralateral side. The needles w ere then removed, the patient's back was cleansed, and band aid dressings were applied. Post Procedure Evaluation: Pre-procedure pain level: 6/10 Post-procedure pain level: 4/10 Amount of pain relief: 33% Pain with provocative maneuvers: Improved but not 80% immediately after procedure, will give pain diary and re-assess in clinic at next visit CONDITION: The patient was discharged home in good condition. PLAN :Follow-up at the next scheduled and earlier as needed. [facility] Instructions* Patient Instructions* Geovanna Degroot RN - 04/16/2021 11:30 AM EDT [facility] WHAT TO EXPECT AFTER A PROCEDURE Follow up appointment: Call the office ([phone]) if you have any questions or develop the following: A fever of 101.2 degrees or higher An unusual headache, worsening of an existing headache, or visual changes Marked increase in neck or back pain Trouble urinating If you lose control of your bowel, bladder or legs, go to the Emergency Room. Keep dressing dry and intact for 24 hours, then remove dressing. If you are diabetic, steroids used in some procedures may raise your blood sugar. Call your family doctor if your blood sugar is greater than 250. Follow up with your family doctor 3-7 days after having this procedure. Specific procedure information: [x] Nerve Block Injection: This is a diagnostic procedure to test to see if this is the source of your pain. You may have relief for 2-4 hours. For the first 2 hours, do activities that would normally cause you pain in this area. Keep track if it is a little better, a lot better or no better duringthis 2 hours. Discuss this information with the doctor at the follow up visit to determine the next step in treatment. Do not sleep or take pain medication for 2 hours after the procedure. Avoid strenuous activity the day of procedure. Patient may return to work the same day. [] Radiofrequency Ablation: The patient should take it easy for a day or so after this procedure. They may have inflammation and/or pain at the procedure site. Apply ice to the affected area. Performnormal activities as tolerated. It may take up to 12 weeks to notice the full benefit of this procedure. [] Joint Steroid Injection: Do activities that would normally cause you pain for the first two hours after the procedure, keep track of how much relief you have and how long it lasts. You will discuss this with the doctor at the follow up visit. Patients may not experience full improvement for 2-3 days after the procedure. Avoid strenuous activity the day of procedure. Patient may return to work the next day. [] Epidural Steroid Injection: Patient may feel numbness in legs or arms, depending on the procedure site. Pain may return 4-6 hours after local anesthetic wears off. Pain may worsen in the first 48 hours and may not fully improve for 7-10 days. Avoid strenuous activity the day of procedure. Patient may return to work the next day. [] Transforaminal Epidural Steroid Injection: Patient may experience immediate relief after the procedure. The patient may feel numbness in the legs or arms, depending on the procedure site. Pain mayreturn four to six hours after the local anesthetic wears off. Pain may worsen in the first 48 hours and may not fully improve for 3-4 days. Avoid strenuous activity the day of procedure. Patient mayreturn to work the next day. [] Sympathetic Block: Patient may experience immediate relief after the procedure. The patient may feel numbness in the legs or arms, depending on the procedure site. Pain may return four to six hours after the local anesthetic wears off. Pain may worsen in the first 48 hours and may not fully improve for 3-4 days. Avoid strenuous activity the day of procedure. Patient may return to work the nextday. You may experience lightheadedness, nausea, diarrhea, and sweating (secondary to low blood pressure and/or heart rate). If you have any further concerns or questions don t hesitate to call us at . Thank you, [facility] History of Present illness Narrative* Maik Barbosa MD - 03/17/2021 8:15 AM EDT HPI: Manuel Rosas Presents for evaluation and treatment of low back pain. Pain is described as Aching and is rated 3/10. Pain is increased with activity increase and is relieved by relaxation and pain medication. The patient denies numbness/tingling . he denies weakness . The patient denies bowel/bladder incontinence. The patient responded with moderate relief to the most recent procedure which was TPI on 02/24/[address] Barbosa. He is noticing some side effects from cymbalta and would like to discuss decreasing to 30 mg. Current Outpatient Medications Medication Sig atenolol-chlorthalidone 50-25 MG tablet cyclobenzaprine 10 MG tablet Take 1 tablet by mouth at bedtime as needed for Muscle spasms. diclofenac EC [address] tablet DULoxetine (Cymbalta) [address] Particles capsule DR Take 1 capsule by mouth daily. Multiple Vitamins-Minerals (PRESERVISION AREDS PO) Take by mouth 2 times daily. Testosterone 20.25 MG/ACT (1.62%) Gel gel APPLY 1 PUMP TOPICALLY EACH MORNING Review of Systems: General: Denies fevers, chills, or night sweats Abdominal: Denies nausea, vomiting, diarrhea Respiratory: Denies cough, sputum production Genitourinary: Denies dysuria or frequency Physical Examination: Vitals: 03/17/21 0804 BP: (!) 132/93 Pulse: 74 Resp: 20 Constitutional The patient is awake, alert, well developed, well nourished and well groomed. The patient is pleasant and cooperative. The patient is a good historian and is very helpful with the history and physical examination. No lesions noted on face. Neurologic Cranial Nerves 2-12 are grossly intact. The deep tendon reflexes of the in bilateral upper extremities are symmetrical;. Plantar reflexes (Babinski): toes are downgoing. Cerebellar function is normal; Romberg's test is negative. The gait is normal. Sensory testing for pain (pinprick), light touch, and proprioception is intact in bilateral upper extremties. No ankle or wrist clonus present. Negative Mcconnell's sign. Motor in bilateral upper extremities is 5/5. Psychiatric The patient is oriented to person, place, and time. Speech is fluent and words are clear. Thought processes are coherent, insight is good. There are no obsessive, compulsive, phobic or delusional thoughts; there are no illusions or hallucinations. The patient's fund of knowledge: awareness of current events and past history is appropriate for age. The patient's higher cognitive functions are intact. The patient's mood is neutral and the affect appropriate; there are no loose associations. MSK The patient has moderate difficulty transitioning from sitting to standing. The patient has a(n) antalgic gait. The lumbar spine demonstrates a flexion biased curve. There is no deformity to the lumbosacral spine. There is no abnormality in muscle tone in the lumbosacral spine. Cervical spine alignment has a slight extension based curve. Lumbar and cervical spine ROM with flexion, rotation, and extension are all mildly limited (moderate in cervical spine) bilateral lumbar paraspinal tenderness and trigger points were noted in bilateral lumbar paraspinalmuscles. there are trigger points present in the cervical paraspinal, rhomboid, trapezius, and levator scapulae muscles on the bilateral side. cervical facet loading is positive bilaterally Spurling's is negative. Lumbar facet loading positive L>R but significant bilaterally, TTP over bilateral lumbar paraspinals Assessment: ICD-10-CM 1. Lumbar spondylosis M47.816 2. Lumbar radiculopathy M54.16 3. Spinal stenosis of cervical region M48.02 4. Chronic pain syndrome G89.4 5. Myofascial pain M79.18 51 y/o M w/PMHx of lumbar spondylosis, low testosterone who presents for neck pain and low back pain. 02/24/21: cervical paraspinal, rhomboid, trapezius, and lumbar paraspinal TPIs resulted in moderate relief for several days Meds: diclofenac 75mg PRN, alternated with ibuprofen PRN. Has tried OTC tylenol, celebrex with somemild relief. [place] has helped in the past, but would like to avoid opioids as first line therapy (agree with patient on this approach). Imaging: lumbar xray shows L4-5, L5-S1 facet arthropathy, no instability or listhesis. 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 May consider advanced imaging for lumbar and cervical spine The patient was counseled that proper dietary changes and consistent participation in a home exercise plan can lead to weight loss. Weight loss can help to improve functionality in patients with chronic pain. I have checked an OARRS report on this patient today and there are no aberrancies noted in the prescribing history. * Geovanna Degroot RN - 03/17/2021 8:15 AM EDT HPI: Manuel Rosas Presents for evaluation and treatment of low back pain. Pain is described as Aching and is rated 3/10. Pain is increased with activity increase and is relieved by relaxation and pain medication. The patient denies numbness/tingling . he denies weakness . The patient denies bowel/bladder incontinence. The patient responded with moderate relief to the most recent procedure which was TPI on 02/24/[address] Barbosa. He is noticing some side effects from cymbalta and would like to discuss decreasing to 30 mg. Current Outpatient Medications Medication Sig atenolol-chlorthalidone 50-25 MG tablet cyclobenzaprine 10 MG tablet Take 1 tablet by mouth at bedtime as needed for Muscle spasms. diclofenac EC [address] tablet DULoxetine (Cymbalta) [address] Particles capsule DR Take 1 capsule by mouth daily. Multiple Vitamins-Minerals (PRESERVISION AREDS PO) Take by mouth 2 times daily. Testosterone 20.25 MG/ACT (1.62%) Gel gel APPLY 1 PUMP TOPICALLY EACH MORNING Review of Systems: General: Denies fevers, chills, or night sweats Abdominal: Denies nausea, vomiting, diarrhea Respiratory: Denies cough, sputum production Genitourinary: Denies dysuria or frequency [facility] Instructions* Patient Instructions* Geovanna Degroot RN - 03/17/2021 8:15 AM EDT Facet Joint Injection/Medial Branch Block Facet joints are small joints on either side of each vertebra in the spinal column. They connect each vertebra with the vertebra above and below. These joints help us to bend forward and backward andto a limited extent to the side. Facet joint blocks are injections of local anesthetic (numbing medication) with or without steroid into the facet joints. Two small nerves supply each facet joint. In diagnostic blocks (Medial Branch Block), local anesthetic is used to numb these tiny nerves to block the pain impulses going to the brain. These diagnostic blocks help to find out whether the facet joints are the cause of the pain. How is the procedure performed? The area to be injected will be cleansed with an aseptic solution to prevent infection. The procedure is done under fluoroscopy (live x-ray guidance) to confirm needle placement and deliver the medication to the precise location. What should I do and expect after the procedure? If the source of your pain is from these joints, you should have pain relief for a period of 2 to 4hours after the injection. During the first 2 hours after your injection you should try to reproduce your pain (do things that normally cause your pain). You will need to record how you feel for the first two hours and bring this with you to your follow up visit. Do not take pain medication the morning of your procedure and for the first 2-4 hours after your procedure. The next day you should resume your normal activities, and you may return to work. What are the risks and side effects? With any procedure there can be risks, side effects and complications. These vary depending on where the procedure was done. Whenever the integrity of the skin is broken there is a risk for infectionand soreness. There is also the potential for more numbness than expected depending on the spread of local anesthetic. Bleeding, headaches and nerve damage are also possible complications of the procedure. However, all the complications are extremely rare. Radiofrequency Treatment Radiofrequency Treatment is a procedure using a specialized machine to interrupt nerve conduction on a semi-permanent basis. The nerves are usually blocked for a period as short as 3 months or as long as 18 months. The procedure disrupts nerve conduction, and it may in turn reduce pain and other related symptoms. Approximately 70%-80% of patients will get good block of the intended nerve. This should help relieve that part of the pain that the blocked nerve controls. Sometimes after a nerve is blocked, it becomes clear that there is pain from other areas as well. How is the procedure performed? The procedure is done as an outpatient at our surgical suite under x-ray guidance to confirm needleplacement. Since the nerves cannot be seen on x-ray, the needles are positioned using bony landmarks. The area to be injected is cleansed with an antiseptic solution to prevent infection. A local anesthetic is injected to numb the skin. A special cannula is advanced under x-ray to the area of the nerve. When the needle is in good position, electrical stimulation is done before any treatment. Thistreatment may produce a buzzing or tingling sensation. You may also feel your muscles jump. The tissues surrounding the needle tip are then heated when current is passed using the radiofrequency machi ne. This numbs the nerves. What should I do and expect after the procedure? We advise that patients take it easy for a day or so after the procedure. You may want to apply iceto the affected area to decrease any inflammation. Perform your normal activities as tolerated. Initially there may be muscle soreness for up to a week afterward. Ice packs will usually control this discomfort. It may take up to three weeks to notice the full benefit of this procedure. What are the risks and side effects? With any procedure there are risks, side effects and the possibility of complications. These vary depending on where the procedure was done. Whenever the integrity of the skin is broken there is a potential for infection and soreness. Bleeding, headaches and nerve damage are also possible complications of the procedure. However, all complications are extremely rare. documented in this [facility]06-16-2021 History and physical note* Maik Barbosa MD - 02/24/2021 11:15 AM EDT HPI: This 51 y.o. male presents for treatment of chronic back Pain. Current Outpatient Medications: atenolol-chlorthalidone 50-25 MG tablet, , Disp: , Rfl: cyclobenzaprine 10 MG tablet, Take 1 tablet by mouth at bedtime as needed for Muscle spasms., Disp:30 tablet, Rfl: 1 diclofenac EC [address] tablet, , Disp: , Rfl: DULoxetine (Cymbalta) [address] Particles capsule DR, Take 1 capsule by mouth daily., Disp: 30 capsule, Rfl: 1 Multiple Vitamins-Minerals (PRESERVISION AREDS PO), Take by mouth 2 times daily., Disp: , Rfl: Testosterone 20.25 MG/ACT (1.62%) Gel gel, APPLY 1 PUMP TOPICALLY EACH MORNING, Disp: , Rfl: Current Facility-Administered Medications: lidocaine 1% (PF) (XYLOCAINE MPF) 10 mL syringe, 10 mL, Other, Once (Outpt Clinic), Maik Barbosa MD No past medical history on file. No past surgical history on file. No family history on file. Review of Systems: General: Denies fevers, chills, or night sweats Abdominal: Denies nausea, vomiting, diarrhea Respiratory: Denies cough, sputum production Genitourinary: Denies dysuria or frequency Vitals: 02/24/21 1116 BP: (!) 155/104 Pulse: 58 Resp: 20 Physical Examination: Vitals: 02/24/21 1116 BP: (!) 155/104 Pulse: 58 Resp: 20 Constitutional The patient is awake, alert, well developed, well nourished and well groomed. The patient is pleasant and cooperative. The patient is a good historian and is very helpful with the history and physical examination. Musculoskeletal The patient has moderate difficulty transitioning from sitting to standing. The patient has a(n) antalgic gait. The lumbar spine demonstrates a flexion biased curve. There is no deformity to the lumbosacral spine. There is no abnormality in muscle tone in the lumbosacral spine. Cervical spine alignment has a slight extension based curve. Lumbar and cervical spine ROM with flexion, rotation, and extension are all mildly limited (moderate in cervical spine) bilateral lumbar paraspinal tenderness and trigger points were noted in bilateral lumbar paraspinalmuscles. there are trigger points present in the cervical paraspinal, rhomboid, trapezius, and levator scapulae muscles on the bilateral side. cervical facet loading is positive bilaterally Spurling's is negative. Neurologic Cranial Nerves 2-12 are grossly intact. The deep tendon reflexes of the in bilateral upper extremities are symmetrical;. Plantar reflexes (Babinski): toes are downgoing. Cerebellar function is normal; Romberg's test is negative. The gait is normal. Sensory testing for pain (pinprick), light touch, and proprioception is intact in bilateral upper extremties. No ankle or wrist clonus present. Negative Mcconnell's sign. Motor in bilateral upper extremities is 5/5. . Psychiatric The patient is oriented to person, place, and time. Speech is fluent and words are clear. Thought processes are coherent, insight is good. There are no obsessive, compulsive, phobic or delusional thoughts; there are no illusions or hallucinations. The patient's fund of knowledge: awareness of current events and past history is appropriate for age. The patient's higher cognitive functions are intact. The patient's mood is neutral and the affect appropriate; there are no loose associations. Assessment: ICD-10-CM 1. Myofascial pain M79.18 Plan: Proceed with bilateral trigger point injections for cervical paraspinal, rhomboid, trapezius, and lumbar paraspinal documented in this [facility]06-[facility] History of Present illness Narrative* Madina Summers RN - 02/24/2021 11:15 AM EDT PHYSICIAN - SCRUB - Kitty Martinez RN ROUTING EQUIPMENT TENDER - Madina Site cleansed with chloroprep. Procedure: cervical paraspinal rhomboid, trapezius and lumbar paraspinal TPI Time Out: 1158 Start: 1158 Stop: 1205 Minimal bleeding, bandaids applied to back and neck Patient tolerated procedure well. Ambulated with steady gait. * Maik Barbosa MD - 02/24/2021 11:15 AM EDT Procedures Procedure: bilateral trapezius, rhomboid, cervical paraspinal muscle Trigger Point Injection Attending Physician: Maik Barbosa MD PreOperative Diagnosis: myofascial pain PostOperative Diagnosis: Same Anesthesia: Local Complications: None Indications for Procedure: This patient presents for evaluation treatment of upper back pain. The patient has spasticity pain in the cervical, thoracic, and lumbar spine. The patient has palpable triggerpoints. The patient presents for trigger point injection. Technique: The patient was given a verbal description of the procedure, including the risks and benefits of the procedure. The patient signed written informed consent for the procedure and was taken to the procedure room. The patient was placed prone on the procedure table. The patient's thoracic spine was prepped and draped in the usual sterile fashion using Hibiclens x3. A time out procedure was performed. The patient's thoracic spine was palpated for trigger points. 10 mLs of 1% lidocaine was evenly distributed into the trigger points using a 25 gauge 1.5 inch needle. The muscles injected were the bilateral trapezius, rhomboid, cervical paraspinal muscles. A total of 10 trigger points were injected. When the injection was completed, the patient's back was cleansed and dried. Band aid dressings were applied. The patient tolerated the procedure well with no immediate complications. The patient was discharged home when discharge criteria was met. * Yoselin Villegas RN - 02/24/2021 11:15 AM EDT HPI: Manuel Rosas Presents for evaluation and treatment of low Back pain. Pain is described as Aching and Throbbing and is rated 7/10. Pain is increased with standing and walking and is relieved by heating pad. The patient admits to having numbness/tingling right arm . he denies weakness . The patientis here today for trigger point injections. Current Outpatient Medications Medication Sig atenolol-chlorthalidone 50-25 MG tablet cyclobenzaprine 10 MG tablet Take 1 tablet by mouth at bedtime as needed for Muscle spasms. diclofenac EC [address] tablet DULoxetine (Cymbalta) [address] Particles capsule DR Take 1 capsule by mouth daily. Multiple Vitamins-Minerals (PRESERVISION AREDS PO) Take by mouth 2 times daily. Testosterone 20.25 MG/ACT (1.62%) Gel gel APPLY 1 PUMP TOPICALLY EACH MORNING Review of Systems: General: Denies fevers, chills, or night sweats Abdominal: Denies nausea, vomiting, diarrhea Respiratory: Denies cough, sputum production Genitourinary: Denies dysuria or frequency documented in this [facility]06-02-[facility] History of Present illness Narrative* Maik Barbosa MD - 02/10/2021 11:15 AM EDT Nurse Note: Review of Systems Constitutional: Negative. HENT: Negative. Eyes: Negative. Respiratory: Negative. Cardiovascular: Negative. Gastrointestinal: Negative. Endocrine: Negative. Genitourinary: Negative. Musculoskeletal: Negative. Allergic/Immunologic: Negative. Neurological: Positive for numbness. Hematological: Negative. Psychiatric/Behavioral: Negative. Nursing Assessment: Physical Exam Thank you for the referral of Manuel Rosas. As you know, he is a very pleasant 51 y.o. male who presents with neck, low back, left hip and bilateral knee pain. Today's assessment is on neck pain. The patient began to notice this pain generator years ago. Manuel does not recall an inciting event .Pain is described as Aching and Throbbing and is rated 7/10. Pain is increased with weather changes, turning head in any direction and is relieved by diclofenac, OTC pain relievers, massage. The patient states that pain is worst in the morning and evenings. The patient admits to having numbness/tingling to right arm , Left arm occasionally,and toes to both feet. Manuel denies weakness . The patient denies bowel/bladder incontinence. Treatment modalities that have been used include massage, relaxation and medications, OTC pain relievers. The patient denies injection therapy. The patient does not report spine surgery. Diagnostic studies include not current. He denies physical therapy within the last year. No past medical history on file. No past surgical history on file. Psychological/Psychiatric History: The patient has not been evaluated by a psychiatrist or psychologist. Social History: Social History Socioeconomic History Marital status: Spouse name: Not on file Number of children: Not on file Years of education: Not on file Highest education level: Not on file Occupational History Not on file Tobacco Use Smoking status: Never Smoker Smokeless tobacco: Never Used Substance and Sexual Activity Alcohol use: Yes Alcohol/week: 5.0 standard drinks Types: 5 Cans of beer per week Comment: 5 beers/week Drug use: Not Currently Sexual activity: Not on file Other Topics Concern Not on file Social History Narrative Not on file Social Determinants of Health Financial Resource Strain: Difficulty of Paying Living Expenses: Food Insecurity: Worried About Running Out of Food in the Last Year: Ran Out of Food in the Last Year: Transportation Needs: Lack of Transportation (Medical): Lack of Transportation (Non-Medical): Physical Activity: Days of Exercise per Week: Minutes of Exercise per Session: Stress: Feeling of Stress : Social Connections: Frequency of Communication with Friends and Family: Frequency of Social Gatherings with Friends and Family: Attends [employer] Services: Active Member of Clubs or Organizations: Attends Club or Organization Meetings: Marital Status: Intimate Partner Violence: Fear of Current or Ex-Partner: Emotionally Abused: Physically Abused: Sexually Abused: Family History: The patient denies any family history of autoimmune or connective tissue disorders. Physical Examination: Vitals: 02/10/21 1146 BP: 121/81 Pulse: 64 Resp: 18 Physical exam: Vitals: 02/10/21 1146 BP: 121/81 Pulse: 64 Resp: 18 Constitutional The patient is awake, alert, well developed, well nourished and well groomed. The patient is pleasant and cooperative. The patient is a good historian and is very helpful with the history and physical examination. Head The skull is normocephalic, atraumatic and without masses. The patient's facial expression and facial contours are normal; the parotid glands are not enlarged. The sinuses are non-tender. Palpation of the temporal and masseter muscles reveals normal strength of muscle contraction. There is symmetryof the nasolabial folds. There is no facial droop. Eyes The eyelids are without lesions. The sclera is white and the conjunctiva pink. No tearing noted at baseline. No scarring noted. ENT External inspection of ears and nose is without scars, lesions or masses. Hearing appears to be grossly intact. The nasal mucosa is pink and without discharge. The septum is midline. The turbinates are not enlarged. The buccal mucosa is pink; there is no cyanosis. The lips are normal color; there are no ulcers, masses or lesions. The mucosa of the oropharynx is moist, The tongue is midline, The pharynx is without exudates. The tonsils are not enlarged. Neck The neck is supple and the trachea is midline. No masses palpable. No erythema or visible venous distension. No scaring noted. Respiratory The patient is relaxed and breathes without effort. The patient is not cyanotic and does not use the accessory muscles of respiration. The chest expands symmetrically upon inspiration. Upon palpationof the chest wall there is no tenderness or masses. Cardiovascular Upon palpation of the chest wall there are no heaves, lifts, or thrills. There is no pitting edema of the lower extremities. There are no bruits. The peripheral artery pulses are equal and brisk. Extremities are warm Gastrointestinal The abdomen is soft and nontender; there is no guarding or rigidity. There are no palpable masses. There is no hepatosplenomegaly. There is no costovertebral angle (CVA) tenderness. Neurologic Cranial Nerves 2-12 are grossly intact. The deep tendon reflexes of the in bilateral upper extremities are symmetrical;. Plantar reflexes (Babinski): toes are downgoing. Cerebellar function is normal; Romberg's test is negative. The gait is normal. Sensory testing for pain (pinprick), light touch, and proprioception is intact in bilateral upper extremties. No ankle or wrist clonus present. Negative Mcconnell's sign. Motor in bilateral upper extremities is 5/5. Psychiatric The patient is oriented to person, place, and time. Speech is fluent and words are clear. Thought processes are coherent, insight is good. There are no obsessive, compulsive, phobic or delusional thoughts; there are no illusions or hallucinations. The patient's fund of knowledge: awareness of current events and past history is appropriate for age. The patient's higher cognitive functions are intact. The patient's mood is neutral and the affect appropriate MSK The patient has moderate difficulty transitioning from sitting to standing. The patient has a(n) antalgic gait. The lumbar spine demonstrates a flexion biased curve. There is no deformity to the lumbosacral spine. There is no abnormality in muscle tone in the lumbosacral spine. Cervical spine alignment has a slight extension based curve. Lumbar and cervical spine ROM with flexion, rotation, and extension are all mildly limited (moderate in cervical spine) bilateral lumbar paraspinal tenderness and trigger points were noted in bilateral lumbar paraspinalmuscles. there are trigger points present in the cervical paraspinal, rhomboid, trapezius, and levator scapulae muscles on the bilateral side. cervical facet loading is positive bilaterally Spurling's is negative. Assessment: ICD-10-CM 1. Myofascial pain M79.18 2. Arthropathy of cervical facet joint M47.812 3. Spondylosis of lumbar region without myelopathy or radiculopathy M47.816 4. Chronic pain syndrome G89.4 5. Compliance with medication regimen Z91.89 51 y/o M w/PMHx of lumbar spondylosis, low testosterone who presents for neck pain and low back pain. Meds: diclofenac 75mg PRN, alternated with ibuprofen PRN. Has tried OTC tylenol, celebrex with somemild relief. [place] has helped in the past, but would like to avoid opioids as first line therapy (agree with patient on this approach). 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 May consider advanced imaging for lumbar and cervical spine The patient was counseled that proper dietary changes and consistent participation in a home exercise plan can lead to weight loss. Weight loss can help to improve functionality in patients with chronic pain. I have checked an OARRS report on this patient today and there are no aberrancies noted in the prescribing history. Medical necessity for trigger point injection: The patient has a new localized pain in the neck and upper back area which has presented within thelast 3 months. The patient demonstrates axial pain and has a physical examination demonstrating trigger points with associated twitch response in the neck and upper back area. The muscles affected are the cervical paraspinal, rhomboid, trapezius, and lumbar paraspinal muscles. These are the same muscles which will be injected. There will be 8 injection sites and the injection will be performed on 1 separate encounters beforereevaluation. Patient utilized will be a 1% lidocaine by itself, but possibly diluted with normal saline and/or acorticosteroid. The injections are necessary because the patient has been unable to release the trigger points withstretching and home exercise program/physical therapy. Trigger point injections were selected for the therapeutic option because the patient's pain generator is of myofascial origin Thank you for the opportunity to participate in the care of your patient. Sincerely, Maik Barbosa MD * Geovanna Degroot RN - 02/10/2021 11:15 AM EDT Nurse Note: Review of Systems Constitutional: Negative. HENT: Negative. Eyes: Negative. Respiratory: Negative. Cardiovascular: Negative. Gastrointestinal: Negative. Endocrine: Negative. Genitourinary: Negative. Musculoskeletal: Negative. Allergic/Immunologic: Negative. Neurological: Positive for numbness. Hematological: Negative. Psychiatric/Behavioral: Negative. Nursing Assessment: Physical Exam Thank you for the referral of Manuel Rosas. As you know, he is a very pleasant 51 y.o. male who presents with neck, low back, left hip and bilateral knee pain. Today's assessment is on neck pain. The patient began to notice this pain generator years ago. Manuel does not recall an inciting event .Pain is described as Aching and Throbbing and is rated 7/10. Pain is increased with weather changes, turning head in any direction and is relieved by diclofenac, OTC pain relievers, massage. The patient states that pain is worst in the morning and evenings. The patient admits to having numbness/tingling to right arm , Left arm occasionally,and toes to both feet. Manuel denies weakness . The patient denies bowel/bladder incontinence. Treatment modalities that have been used include massage, relaxation and medications, OTC pain relievers. The patient denies injection therapy. The patient does not report spine surgery. Diagnostic studies include not current. He denies physical therapy within the last year. [facility] Instructions* Patient Instructions* Geovanna Degroot RN - 02/10/2021 11:15 AM EDT Weight and Chronic Pain Excess body weight and obesity can worsen many kinds of chronic pain. People who are overweight or obese are more likely to suffer from various types of pain, including low back pain, fibromyalgia, pelvic and abdominal pain and headaches. People with chronic pain may: Have difficulty remaining active, which can lead to weight gain Experience increased stress, which can lead to overeating Take medications that may lead to weight gain Have increased stress on their joints and spine Obesity can also lead to other illnesses, such as diabetes, high blood pressure, coronary artery disease, coronary vascular disease, heart attack, stroke and even cancer. Maintaining a healthy body weight is an important part of managing your health. Body Mass Index, or BMI, is used to measure body fat and to identify a person's risk for certain diseases that can occur with being overweight or obese. In adults, a healthy weight is determined based upon the ratio of weight to height. Your Body mass index is 34.61 kg/m . BMI Weight Status Under Weight Below 18.5 Normal Weight 18.5 24.9 Overweight 25 29.9 Obese 30 and above Please read the attached handout from the [employer] with guidelines and recommendations for you to review. It will help you to identify ways to maintain a healthy weight which may decrease your pain and improve your quality of life. Please contact our office or your primary care physician if you have additional questions and to help reach your personal weight goals. Trigger Point Injection A Trigger Point Injection (TPI) is a procedure used to treat painful areas of muscle that contain trigger points, or knots of muscle that form when muscles do not relax. Trigger points may irritate the nerves around the muscle and cause referred pain, or pain that is felt in another part of the body. Trigger point injections are used to treat many muscle groups, including those in the arms, legs, lower back and neck. Trigger point injections can also be used to treat fibromyalgia, tension headaches and myofascial dysfunction. How is the procedure performed? Often this procedure is done in the office setting. The health care provider inserts a small needleinto the patient s trigger point. The injection contains a local anesthetic or saline, and may include a corticosteroid. The anticipated outcome with this injection is the trigger point is made inactive and the pain is alleviated. What are the risks and side effects? With any procedure there can be risks, side effects and complications. These vary depending on where the procedure was done. Whenever the integrity of the skin is broken there is a risk for infectionand soreness. There is also the potential for more numbness than expected depending on the spread of local anesthetic. Bleeding, headaches and nerve damage are also possible complications of the procedure. However, all the complications are extremely rare. Facet Joint Injection/Medial Branch Block Facet joints are small joints on either side of each vertebra in the spinal column. They connect each vertebra with the vertebra above and below. These joints help us to bend forward and backward andto a limited extent to the side. Facet joint blocks are injections of local anesthetic (numbing medication) with or without steroid into the facet joints. Two small nerves supply each facet joint. In diagnostic blocks (Medial Branch Block), local anesthetic is used to numb these tiny nerves to block the pain impulses going to the brain. These diagnostic blocks help to find out whether the facet joints are the cause of the pain. How is the procedure performed? The area to be injected will be cleansed with an aseptic solution to prevent infection. The procedure is done under fluoroscopy (live x-ray guidance) to confirm needle placement and deliver the medication to the precise location. What should I do and expect after the procedure? If the source of your pain is from these joints, you should have pain relief for a period of 2 to 4hours after the injection. During the first 2 hours after your injection you should try to reproduce your pain (do things that normally cause your pain). You will need to record how you feel for the first two hours and bring this with you to your follow up visit. Do not take pain medication the morning of your procedure and for the first 2-4 hours after your procedure. The next day you should resume your normal activities, and you may return to work. What are the risks and side effects? With any procedure there can be risks, side effects and complications. These vary depending on where the procedure was done. Whenever the integrity of the skin is broken there is a risk for infectionand soreness. There is also the potential for more numbness than expected depending on the spread of local anesthetic. Bleeding, headaches and nerve damage are also possible complications of the procedure. However, all the complications are extremely rare. Radiofrequency Treatment Radiofrequency Treatment is a procedure using a specialized machine to interrupt nerve conduction on a semi-permanent basis. The nerves are usually blocked for a period as short as 3 months or as long as 18 months. The procedure disrupts nerve conduction, and it may in turn reduce pain and other related symptoms. Approximately 70%-80% of patients will get good block of the intended nerve. This should help relieve that part of the pain that the blocked nerve controls. Sometimes after a nerve is blocked, it becomes clear that there is pain from other areas as well. How is the procedure performed? The procedure is done as an outpatient at our surgical suite under x-ray guidance to confirm needleplacement. Since the nerves cannot be seen on x-ray, the needles are positioned using bony landmarks. The area to be injected is cleansed with an antiseptic solution to prevent infection. A local anesthetic is injected to numb the skin. A special cannula is advanced under x-ray to the area of the nerve. When the needle is in good position, electrical stimulation is done before any treatment. Thistreatment may produce a buzzing or tingling sensation. You may also feel your muscles jump. The tissues surrounding the needle tip are then heated when current is passed using the radiofrequency machi ne. This numbs the nerves. What should I do and expect after the procedure? We advise that patients take it easy for a day or so after the procedure. You may want to apply iceto the affected area to decrease any inflammation. Perform your normal activities as tolerated. Initially there may be muscle soreness for up to a week afterward. Ice packs will usually control this discomfort. It may take up to three weeks to notice the full benefit of this procedure. What are the risks and side effects? With any procedure there are risks, side effects and the possibility of complications. These vary depending on where the procedure was done. Whenever the integrity of the skin is broken there is a potential for infection and soreness. Bleeding, headaches and nerve damage are also possible complications of the procedure. However, all complications are extremely rare. [facility]* Diagnosis Myofascial pain- Primary Mylagia and myositis, unspecified Arthropathy of cervical facet joint Cervical spondylosis without myelopathy Spondylosis of lumbar region without myelopathy or radiculopathy Lumbosacral spondylosis without myelopathy Chronic pain syndrome Compliance with medication regimen [facility] Diagnosis Spondylosis of lumbar region without myelopathy or radiculopathy Lumbosacral spondylosis without myelopathy [facility] Diagnosis Myofascial pain- Primary Mylagia and myositis, unspecified [facility]* Diagnosis Lumbar spondylosis- Primary Lumbosacral spondylosis without myelopathy Lumbar radiculopathy Thoracic or lumbosacral neuritis or radiculitis, unspecified Spinal stenosis of cervical region Spinal stenosis in cervical region Chronic pain syndrome Myofascial pain Mylagia and myositis, unspecified [facility] Diagnosis Lumbar spondylosis- Primary Lumbosacral spondylosis without myelopathy Chronic pain syndrome Myofascial pain Mylagia and myositis, unspecified documented [facility] N[facility]ative - Reported* Type Description Date Medical History Elevated cholesterol with elevat ed triglycerides Medical History Low serum testosterone level Medical History Lumbar pain Medical History Hypertension Medical History Diverticulosis Surgical History R shoulder arthroscopy Surgical History FB R wrist Surgical History Umbilical hernia repair 07/12/20 23 Surgical History Colonoscopy 06/25/2023 Hospitalization History SEE SURGICAL HX [facility] [employer] Other Reason for Referral Status Reason Specialty Diagnoses / Procedures Referred By Contact Referred To Contact Auth Not Needed Diagnoses Myofascial pain Chronic pain syndrome Maik Barbosa MD [address] [place] [id number] Scheduling Instructions Please PA and schedule: neck and back TPI (pt will need a [address] Barbosa) Reason *FU 08/08 chronic lumbar pain, would benefit from less NSAID use. Diagnosis 1 Low back pain, unspe cified (M54.50) Referral Organization [facility] C linangelina Referring Provider First Name Kell Referring Provider Last Name Tawnya Referring Provider Specialty Family Medi cine Referred Organization [facility] Referred Address [address], [place],[address] Referred Provider Specialty Pain Medicin e Referral Priority Routine General Notes Es Cooper 05:14:13 PM >received today, attachments made, notes locked, referral faxed Clinical Notes f: [id number] Summary Purpose Family History No Family History Records FoundNo Family History Records FoundNo Family History Records Found Advance Directives No Advanced Directives Records FoundNo Advanced Directives Records FoundNo Advanced Directives Records Found Additional Source Comments Reason for Visit (unrecogniz ed section and content) Wellness Reason Comments Pain Reason Comments Neck Pain Status Reason Specialty Diagnoses / Procedures Referre d By Contact Referred To Contact Closed Diagnoses Myofascial pain Chronic pain syndrome Maik Barbosa MD [address] [place] [address] Reason Comments Pain Specialty Diagnoses / Procedures Referred By Contac t Referred To Contact Diagnoses Lumbar facet arthropathy Maik Barbosa MD [address] [place] [address] Referral ID Status Reason Start Date Expiration Date Visits Re quested Visits Authorized [id number] Closed 04/14/2021 05/09/2022 1 1 (unrecognized sect ion and content) No Status Records FoundNo Status Records FoundNo Status Records Found INFORMATION SOURCE (unrecogn ized section and content) DATE CREATED AUTHOR 05/10/2021 [facility] DATE CREATED AUTHOR AUTHOR'S ORGANIZ ATION 01/13/2023 [facility] DATE CREATED AUTHOR AUTHOR'S ORGANIZ ATION 07/27/[address] [facility] Care Teams (unrecognized sec tion and content) Credit Authorizer Relationship Specialty Start Date End Date Kell Bowling MD [address] [place] [address] [place] [address] PCP - General Family Medicine 02/10/21 FOR RECORDS PERTAINING TO PATIENTS WHO ARE OR HAVE BEEN ENROLLED IN A CHEMICAL DEPENDENCY/SUBSTANCEABUSE PROGRAM, SOME INFORMATION MAY BE OMITTED. This clinical summary was aggregated from multiple sources. Caution should be exercised in using it in the provision of clinical care. This summary normalizes information from multiple sources, and as a consequence, information in this document may materially change the coding, format and clinical context of patient data. In addition, data may be omitted in some cases. CLINICAL DECISIONS SHOULD BE BASED ON THE PRIMARY CLINICAL RECORDS. [facility]. provides no warranty or guarantee of the accuracy or completeness of information in this document.
--- NOTE | 2023-08-31 10:40 | P.ON_ITS ---
Date of procedure: 08/31/23 Pre-op diagnosis: Lumbar spondylosis Post-op diagnosis: same as pre-op Procedure: Bilateral lumbar 4-5, 5-S1 medial branch block Under fluoroscopic guidance Solution injected: 2millilitersMarcaine 0.25% Anesthesia :none Immediate complications none Time out process compliant After informed consent obtained from the patient placed in the Prone proposition . area was prepped and draped in a sterile fashion using Cloraprep .25 gauge spinal needle inserted over each of the above mentioned target areas . [place] were directed towards the target under fluoroscopic guidance . after encountering each of the targets , no indication of intravascular intraneuronal or intrathecal needle tip placement. Then 0 .5 to 1 Milliliter was injected at each level. [place] removed postoperatively. patient transferred to recovery in stable condition to be discharged home after meeting criteria Anesthesia: MAC Surgeon: Adalberto James Condition: stable
== END 2023-08-31 10:06 | disposition home or self-care (01) ==
LOC: SURGOUT 07:03
PROVIDERS: PCP Family Medicine; Visit Provider Anesthesiology Pain Medicine
DX: M47.816 Spondylosis without myelopathy or radiculopathy, lumbar region (principal)
CPT/HCPCS: 64493; 64494

== ENCOUNTER 2023-09-07 07:49 | Outpatient (OUT) | payer BC, SELFPAY ==
--- OUTSIDE RECORDS SUMMARY | 2023-09-07 07:51 | XMS_ITS | CCD ---
Author Name Unknown Address [address] [place] [address] Organization [facility] Care Team Providers Care Car Cleaner Name Role Phone Kell Bowling MD Primary Care Provider TAWNYA, DR KELL Romero Primary Care Unavailable KASSIE Isidro, DR LIZBETH Donald Attending Unavaila ble KASSIE Isidro, DR LIZBETH Donald Consulting Unavaila marilin Isidro, DR LIZBETH Donald Admitting Unavaila ble TAWNYA, DR KELL Romero Primary Care Unavailable FISHER ., DR CINTRON Attending Unavailable FISHER ., DR CINTRON Consulting Unavailable FISHER ., DR CINTRON Admitting Unavailable HOY ., DR CORRIGAN Attending Unavailable HOY ., DR CORRIGAN Consulting Unavailable HOY ., DR CORRIGAN Admitting Unavailable BOWLING, DR KELL Romero Primary Care Unavailable BOWLING, DR KELL Romero Primary Care Unavailable GRRONDA ., DR CONNIE Romero Admitting Unavaila ble PEÑA ., DR CONNIE Romero Attending Unavaila ble TAWNYA, DR KELL Romero Primary Care Unavailable GRILLIAme ., DR CONNIE Romero Admitting Unavaila ble PEÑA ., DR CONNIE Romero Attending Unavaila ble TAWNYA, DR KELL Romero Primary Care Unavailable GRRONDA ., DR CONNIE Romero Admitting Unavaila ble PEÑA ., DR CONNIE Romero Attending Unavaila ble TAWNYA, DR KELL Romero Primary Care Unavailable GRILLIAme ., DR CONNIE Romero Attending Unavaila ble PEÑA ., DR CONNIE Romero Consulting Unavaila ble PEÑA ., DR CONNIE Romero Admitting Unavaila ble LAURY, DR CHRISTOFER Hernandez Consulting Unavailable TAWNYA, DR KELL Romero Primary Care Unavailable FISHER ., DR CINTRON Attending Unavailable FISHER ., DR CINTRON Consulting Unavailable FISHER ., DR CINTRON Admitting Unavailable BOWLING, DR KELL Romero Admitting Unavailable BOWLING, DR KELL Romero Attending Unavailable BOWLING, DR KELL Romero Consulting Unavailable TAWNYA, DR KELL Romero Primary Care Unavailable Chata Page Attending Unavailable Cahta Page Attending Unavailable Chata Page Attending Unavailable Kell Bowling Unavailable Allergies Allergy Classification Reported Allergen(s) Allergy Type Date of Onset Reaction(s) Facility (2 sources) patient allergy list reviewed by nurse or physicia Propensity to adverse reactions 9 Comment:Done [employer] Other (2 sources) Allergies Reconciled Propensity to adverse reactions Unknown [employer] Other Medications Current Medications Medication Drug Class(es) Dates Sig (Normalized) Sig (Original) Amoxicillin (1 source) Penicillin-class Antibacterial Amoxicillin Active Atenolol / Chlorthalidone (7 sources) Thiazide-like Diuretic, beta-Adrenergic Daron Start: 08-22-2022 take 1 tablet by mouth once daily Atenolol-Chlortha lidone 50-25mg atenoloL-chlortha lidone 50-25mg, 1 (one) Tablet daily # 90, 08/22/2022, Ref. x1. Active oral daily for 90 *Pick strength-form from Advise Only for eRX* Aug, Active Start: 02-05-2021 atenolol-chlor thalidone 50-25 MG tablet cyclobenzaprine hydrochloride 10 mg oral tablet (7 sources) Muscle Relaxant Start: 05-31-2022 take 1 tablet by mouth three times daily as needed cyclobenzaprine 10mg cyclobenzaprine 10mg, 1 (one) Tablet three times daily, as needed # 30, 05/31/2022, No Refill. Active oral three times daily, as needed for 0 *Reorder from Advise Only for eRx and Interaction Alerts* May, Active Start: 02-10-2021 End: 05-16-2021 take 1 tablet by mouth at bedtime as needed for muscle spasms cyclobenzaprine 10 MG tablet Indications: Chronic pain syndrome , Myofascial pain Take 1 tablet by mouth at bedtime as needed for Muscle spasms. 30 tablet 2 04/16/2021 05/16/2021 Active diclofenac sodium 75 mg delayed release oral tablet (7 sources) Nonsteroidal Anti-inflammatory Drug Start: 02-05-2021 diclofenac EC [address] tablet DULoxetine 30 mg delayed release oral capsule (9 sources) Serotonin and Norepinephrine Reuptake Inhibitor Start: [...] mouth daily. 30 capsule 2 03/17/2021 Active Methocarbamol (1 source) Muscle Relaxant Robaxin Active Multiple Vitamins-Minerals (PRESERVISION AREDS PO) (5 sources) Multiple Vitamins-Mineral s (PRESERVISION AREDS PO) Take by mouth 2 times daily. 0 Active phentermine hydrochloride 37.5 mg oral tablet (2 sources) Sympathomimetic Amine Anorectic Start: 08-31-20 take 1 tablet by mouth once daily before breakfast Adipex-P 37.5 MG 1 tablet before breakfast Orally Once a day for 30 days Aug, Active Start: 08-01-2023 take 1 tablet by kasi th once daily before breakfast Adipex-P 37.5 MG 1 tablet before breakfast Orally Once a day for 30 days Jul, Active tadalafil 20 mg oral tablet (2 sources) Phosphodiesterase 5 Inhibitor Cialis 20 MG 1 table t prn Active Testosterone (7 sources) Androgen Start: 05-31-2022 AndroGel 1.62 % (20.25mg/1.25 gr AndroGeL 1.62 % (20.25mg/1.25 gr, 2 pumps daily , 05/31/2022, No Refill. Active transdermal for 0 *Reorder from Advise Only for eRx and Interaction Alerts* May, Active [...] Da te Episodic/Chronic Disorders of lipid metabolism (2 sources) Mixed hyperlipidemia; Translations: [Mixed hyperlipidemia] Chronic Essential hypertension (4 sources) Essential hypertension; Translations: [Essential (primary) hypertension] Onset: 03-17-2021 03-17-2021 Chronic Other endocrine disorders (4 sources) Testicular hypofunction; Translations: [TESTICULAR HYPOFUNCTION] Onset: 01-06-2023 Chronic Other nervous system disorders (3 sources) Chronic pain syndrome; Translations: [Chronic pain syndrome] Chronic Other nervous system disorders (2 sources) Chronic pain; Translations: [Other chronic pain] Chronic Other nervous system disorders (1 source) Other chronic pain Chronic Other nutritional; endocrine; and metabolic disorders (2 sources) Obese class I; Translations: [Obesity, unspecified] Onset: 03-17-2021 03-17-2021 Chronic Other nutritional; endocrine; and metabolic disorders (3 sources) Body mass index 30+ - obesity; Translations: [Obesity, unspecified] Chronic Other nutritional; endocrine; and metabolic disorders (1 source) Obesity, unspecified Chronic Other nutritional; endocrine; and metabolic disorders (1 source) Obesity caused by energy imbalance; Translations: [Other obesity due to excess calories] Chronic Other nutritional; endocrine; and metabolic disorders (1 source) Other obesity due to excess calories Chronic Other nutritional; endocrine; and metabolic disorders (1 source) Body mass index (BMI) 33.0-33.9, adult Chronic Other screening for suspected conditions (not mental disorders or infectious disease) (3 sources) Encounter for screening for malignant neoplasm of prostate; Translations: [Blood chemistry abnormal] Onset: 05-30-2022 Episodic Residual codes; unclassified (2 sources) Obstructive sleep apnea syndrome; Translations: [Obstructive sleep [...] Spondylosis; intervertebral disc disorders; other back problems (4 sources) Lumbar radiculopathy; Translations: [Radiculopathy, lumbar region] [...] Impotence Your Care Team Attending Physician - Chata Page MD Primary Care Physician - KELL BOWLING MD [...] FERMIN, Chata Inman Where: [facility] Lab Reportson 07-26-2023 Lab Reports [id number]#1.00TIFF Normal [facility] Lab Reports [id number]#1.00TI FF Normal [facility] Medication Consenton 023 Medication Consent [id number]#1.00TI FF Normal [facility] Patient Educationon 07-26-20 23 Patient [...] Follow these instructions at home: ? Take ykkk-[id number] and prescription medicines only as told by [...] from the medicine (more content not included)... [facility] Reminderson 07-26-2023 Reminders - From: Meme Haley To: EU - Recalls Lue; Sent: 07/26/2023 11:33:52 EST Show up: 05/26/2024 12:33:00 EDT Subject: Labs Due Date/Time: 07/26/2024 11:33:00 EST Pt will need T Level, HCT and PSA prior to appt. PSA is done by PCP. [facility] Screenson 07-26-2023 Screens [id number]#1.00TI FF [facility] Screens [id number]#1.00TI FF [facility] Urology Office/Clinic Noteon 07-26-2023 Urology Office/Clinic Note Chief Complaint 6m Testosterone Level HPI Staff 6m Testosterone Level DX: Hypogonadism, Impotence & BPH *Cialis 10mg PRN (occasionally uses 20mg) & Androgel 2 pumps qd PSA 07/05/23- 0.78 CBC/CMP 07/05/23 *BUN 21.0 & Crea 1.48 eGFR 50 *Hgb 12.3 & Hct 38.9 A1C 07/05/23- 5.8 Testosterone 07/20/23- 366 ([id number]) Pt has no concerns at this time. [...] further tx changes at this time -Cont Alexiss I spent 25 minutes today with the [...] mRNA BNT-162b2 vax (more content not included)... [facility] Comment on above: Result Comment: Elec tronically Signed By: Chata Page MD\.br\Date and Time Signed: 07/26/23 08:57 EST\.br\Electronically Co-Signed By: Meme Haley\.br\Date and Time Co-Signed: 07/26/23 08:37 EST Lab Reportson 07-24-2023 Lab Reports [id number]#1.00TIF F [facility] Ambulatory Visit Summaryon 0 01-11-2023 Ambulatory Visit Summary MANUEL ROSAS :1970 Visit Date:01/11/2023 Ambulatory Visit Instructions Your Diagnosis Impotence Male hypogonadism BPH (benign prostatic hyperplasia) Tests Performed Urnls Dip Stick Auto w/o Microscopy POC 43119 Your Care Team Attending Physician - Chata Page MD Primary Care Physician - KELL BOWLING MD [...] Follow-Up Appointments Monday 8:00 AM EST With: Chata Page MD Where: [facility] Patient Educationon 01-12-20 Patient Education Urology Testicular [...] provider. Document Revised: 08/03/2020 Document Reviewed: 08/03/2020 [employer] Patient Education ? 2022 [employer] Normal [facility] Screenson 01-11-2023 Screens [id number] :127 Normal [facility] Screens [id number]#1.00CD :127 Normal [facility] Urology Office/Clinic Noteon 01-11-2023 Urology Office/Clinic Note Chief Complaint 6 month follow up HPI Staff 6 month follow up w/testosterone level 487 done 01/06/23, previous testosterone level 410 done 06/20/22. Previous DX: BPH, impotence, male hypogonadism. Pt is currently taking Cialis 10mg PRN, and AndroGel 2 pumps daily-refill on both medications sent to [facility] in [place]. IPSS is , MAKI 22. Dysuria: denies [...] Androgel 2 pumps daily. Refill sent to [facility]. Good range and sx improvement, prior CBC [...] mos t level Patient Education Testicular Self-Exam Ericka Ochoa, personally scribed for Dr. Page on 01/11/2023 10:31:27. . Documentation recorded by the scribEricka romero, accurately reflects the services(s) I performed and [...] Urine Dips (more content not included)... Normal [facility] Comment on above: Result Comment: Elec tronically Signed By: Chata Page MD\.br\Date and Time Signed: 01/11/23 19:10 EDT\.br\Electronically Co-Signed By: Ericka Mcconnell.br\Date and Time Co-Signed: 01/11/23 10:32 EDT Lab Reportson 01-10-2023 Lab Reports [id number]#1.00CD: 127 Normal [facility] TESTOSTERONE, TOTALon 2022 Testosterone [Mass/Vol] 487 ng/dL Normal 264-916 [facility] Comment on above: Result Comment: Adul t male reference interval is based on a population of healthy nonobese males (BMI <30) between 19 and 39 years old. Joni et.al. JCEM 2017,102;0875-1038. PMID: [id number]. Performed By: #### T ESTTOT #### [facility] [address] [place] [address] Dr. Mychal Oropeza Pre-Certification Formon Pre-Certification Form [id number]#1.00CD: 127 Normal [facility] Pre-Certification Formon Pre-Certification Form [id number]#1.00CD: 127 Normal [facility] Pre-Certification Formon Pre-Certification Form [id number]#1.00CD: 127 Normal [facility] US SINGLE QUAD RT UPPERon US SINGLE [...] by: CHRISTOFER SCHAEFFER Date: 2022-08-25 07:07 Normal [facility] Historical Records Officeon 08-19-2022 Historical Records Office [id number]#1.00CD: 127 Normal [facility] Pre-Certification Formon Pre-Certification Form [id number]#1.00CD: 127 Normal [facility] Patient Letter FTMCon 2021 Patient [place] [facility] [place]ed Image. Nga ble to display) August 18, 2022 ARMANDORAYMUNDO NOLANEL [address] [place] [address] RAYMUNDO ROSASEL 1970 Dear Whomever it may concern, I'm [...] Sincerely, Dr. Chata Page MD [facility] [address] [place] [address]. [place] [address] Normal [facility] TESTOSTERONE, TOTALon 2021 Testosterone [Mass/Vol] 410 ng/dL Normal 264-916 [facility] Comment on above: Result Comment: Adul t male reference interval is based on a population of healthy nonobese males (BMI <30) between 19 and 39 years old. Joni, et.al. JCEM 2017,102;5779-7214. PMID: 93046333. Performed By: #### T ESTTOT #### [facility] [address] [address] [address] Mychal Oropeza CBC AUTO DIFFon 05-27-2022 BASO # 0.1 103/ul Normal 0.0-0.1 [facility] Comment on above: Performed By: #### C BC #### [facility] [address] [place] [address] Dr. Mychal Oropeza Basophils/100 WBC (Bld) 0.9 % Normal 0.2-2.0 [facility] Comment on above: Performed By: #### C BC #### [facility] [address] [place] [address] Dr. Mychal Oropeza EO # 0.7 103/ul Normal 0.0-0.7 [facility] Comment on above: Performed By: #### C BC #### [facility] [address] [place] [address] Dr. Mychal Oropeza Eosinophils/100 WBC (Bld) 6.7 % Normal 0.9-7.0 [facility] Comment on above: Performed By: #### C BC #### [facility] [address] [place] [address] Dr. Mychal Oropeza Erythrocyte distribution width (RBC) [Ratio] 12.8 % Normal 11.0-15.0 [facility] Comment on above: Performed By: #### C BC #### [facility] [address] [place] [address] Dr. Mychal Oropeza Hematocrit (Bld) [Volume fraction] 46.9 % Normal 42.0-54.0 [facility] Comment on above: Performed By: #### C BC #### [facility] [address] [place] [address] Dr. Mychal Oropeza Hemoglobin (Bld) [Mass/Vol] 16.2 g/dL Normal 14.0-18.0 [facility] Comment on above: Performed By: #### C BC #### [facility] [address] [place] [address] Dr. Mychal Oropeza IG # 0.04 10e3/ul Critically high 0.00-0.03 [facility] Comment on above: Performed By: #### C BC #### [facility] [address] [place] [address] Dr. Mychal Oropeza IG % 0.4 % Normal 0.0-0.5 [facility] Comment on above: Performed By: #### C BC #### [facility] [address] [address] [address] Mychal Oropeza LYMPH # 4.1 103/ul Critically high 1.2-3.8 [facility] Comment on above: Performed By: #### C BC #### [facility] [address] [address] [address] Mychal Oropeza Lymphocytes/100 WBC (Bld) 37.7 % Normal 20.5-60.0 [facility] Comment on above: Performed By: #### C BC #### [facility] [address] [place] [address] Dr. Mychal Oropeza MANUAL DIFF REQ NO Normal [facility] Comment on above: Performed By: #### C BC #### [facility] [address] [place] [address] Dr. Mychal Oropeza MCH (RBC) [Entitic mass] 30.7 pg Normal 25.9-34.0 [facility] Comment on above: Performed By: #### C BC #### [facility] [address] [place] [address] Dr. Mychal Oropeza MCHC (RBC) [Mass/Vol] 34.5 g/dL Normal 29.9-35.2 [facility] Comment on above: Performed By: #### C BC #### [facility] [address] [place] [address] Dr. Mychal Oropeza MCV (RBC) [Entitic vol] 88.8 fL Normal 80.0-94.0 [facility] Comment on above: Performed By: #### C BC #### [facility] [address] [place] [address] Dr. Mychal Oropeza MONO # 0.9 103/ul Critically high 0.3-0.8 [facility] Comment on above: Performed By: #### C BC #### [facility] [address] [place] [address] Dr. Mychal Oropeza Monocytes/100 WBC (Bld) 8.1 % Normal 1.7-12.0 [facility] Comment on above: Performed By: #### C BC #### [facility] [address] [address] [address] Mychal Oropeza NEUT # 5.1 103/ul Normal 1.4-6.5 [facility] Comment on above: Performed By: #### C BC #### [facility] [address] [address] [address] Mychal Oropeza Neutrophils/100 WBC (Bld) 46.2 % Normal 43.0-75.0 [facility] Comment on above: Performed By: #### C BC #### [facility] [address] [address] [address] Mychal Oropeza Platelet mean volume (Bld) [Entitic vol] 9.7 fL Normal 9.5-13.5 [facility] Comment on above: Performed By: #### C BC #### [facility] [address] [address] [address] Mychal Oropeza PLT 308 103/ul Normal 150-450 [facility] Comment on above: Performed By: #### C BC #### [facility] [address] [address] [address] Mychal Oropeza RBC 5.28 106/ul Normal 4.70-6.10 [facility] Comment on above: Performed By: #### C BC #### [facility] [address] [address] [address] Mychal Oropeza WBC 10.9 103/ul Normal 4.0-11.0 [facility] Comment on above: Performed By: #### C BC #### [facility] [address] [address] [address] Mychal Oropeza GLYCOHEMOGLOBIN A1Con 2021 ADA RECOMMENDATION SEE BELOW Normal [facility] Comment on above: Result Comment: ADA RECOMMENDED LIMIT 4.0 - 6.0 ADA THERAPEUTIC TARGET < 7.0 ACTION SUGGESTED > 7.0 Performed By: #### A 1C #### [facility] [address] [address] [address] Mychal Oropeza Glucose [Mass/Vol] 108 mg/dL Normal [facility] Comment on above: Performed By: #### A 1C #### [facility] [address] [address] [address] Mychal Oropeza HbA1c (Bld) [Mass fraction] 5.4 % Normal 4.5-6.2 [facility] Comment on above: Performed By: #### A 1C #### [facility] [address] [address] [address] Mychal Oropeza LIPID PROFILEon 05-27-2022 CHOL-HDL RATIO NORM SEE BELOW Normal [facility] Comment on above: Result Comment: 3.3 - 4.4 LOW RISK 4.4 - 7.1 AVERAGE RISK 7.1 - 11.0 MODERATE RISK >11.0 HIGH RISK Performed By: #### T SH, LIPID, CMP #### [facility] [address] [address] [address] Mychal Oropeza Cholesterol [Mass/Vol] 207 mg/dL Critically high <=200 [facility] Comment on above: Performed By: #### T SH, LIPID, CMP #### [facility] [address] [address] [address] Mychal Oropeza Cholesterol in HDL [Mass/Vol] 47 mg/dL Normal 40-60 [facility] Comment on above: Performed By: #### T SH, LIPID, CMP #### [facility] [address] [address] [address] Mychal Oropeza Cholesterol in LDL [Mass/Vol] 122.4 mg/dL Normal [facility] Comment on above: Performed By: #### T SH, LIPID, CMP #### [facility] [address] [address] [address] Mychal Oropeza Cholesterol.total/Ch olesterol in HDL [Mass ratio] 4.4 {ratio} Normal [facility] Comment on above: Performed By: #### T SH, LIPID, CMP #### [facility] [address] [address] [address] Mychal Oropeza HDL NORMAL > or = 60 mg/dl - LO W CARDIOVASCULAR RISK <40 mg/dl - HIGH CARDIOVASCULAR RISK Normal [facility] Comment on above: Performed By: #### T SH, LIPID, CMP #### [facility] [address] [address] [address] Mychal Oropeza LDL CALC NORMAL SEE BELOW Normal [facility] Comment on above: Result Comment: <100 mg/dl OPTIMAL 100 - 129 mg/dl NEAR OR ABOVE OPTIMAL 130 - 159 mg/dl BORDERLINE HIGH 160 - 189 mg/dl HIGH >190 mg/dl VERY HIGH Performed By: #### T KADIE, LIPID, CMP #### [facility] [address] [address] [address] Mychal Oropeza Triglyceride [Mass/Vol] 188 mg/dL Critically high <=150 [facility] Comment on above: Performed By: #### T KADIE, LIPID, CMP #### [facility] [address] [address] [address] Mychal Oropeza VLDL CALC 37.6 mg/dL Normal [facility] Comment on above: Performed By: #### T KADIE, LIPID, CMP #### [facility] [address] [place] [address] Dr. Mychal Oropeza PROF 14(COMP METB)on 022 Albumin [Mass/Vol] 3.9 g/dL Normal 3.4-5.0 [facility] Comment on above: Performed By: #### T KADIE, LIPID, CMP #### [facility] [address] [address] [address] Mychal Oropeza Albumin/Globulin [Mass ratio] 1.1 {ratio} Normal [facility] Comment on above: Performed By: #### T KADIE, LIPID, CMP #### [facility] [address] [address] [address] Mychal Oropeza ALP [Catalytic activity/Vol] 77 U/L Normal 46-116 [facility] Comment on above: Performed By: #### T KADIE, LIPID, CMP #### [facility] [address] [address] [address] Mychal Oropeza ALT [Catalytic activity/Vol] 56 U/L Normal 16-63 [facility] Comment on above: Performed By: #### T KADIE, LIPID, CMP #### [facility] [address] [address] [address] Mychal Oropeza Anion gap [Moles/Vol] 8.6 mmol/L Normal [facility] Comment on above: Performed By: #### T SH, LIPID, CMP #### [facility] [address] [place] [address] Dr. Mychal Oropeza AST [Catalytic activity/Vol] 30 U/L Normal 15-37 [facility] Comment on above: Performed By: #### T SH, LIPID, CMP #### [facility] [address] [place] [address] Dr. Mychal Oropeza Bilirubin [Mass/Vol] 0.6 mg/dL Normal 0.2-1.0 [facility] Comment on above: Performed By: #### T SH, LIPID, CMP #### [facility] [address] [place] [address] Dr. Mychal Oropeza Calcium [Mass/Vol] 9.2 mg/dL Normal 8.5-10.1 [facility] Comment on above: Performed By: #### T SH, LIPID, CMP #### [facility] [address] [place] [address] Dr. Mychal Oropeza Chloride [Moles/Vol] 100 mmol/L Normal 98-107 [facility] Comment on above: Performed By: #### T SH, LIPID, CMP #### [facility] [address] [place] [address] Dr. Mychal Oropeza CO2 [Moles/Vol] 30.0 mmol/L Normal 21.0-32.0 [facility] Comment on above: Performed By: #### T SH, LIPID, CMP #### [facility] [address] [place] [address] Dr. Mychal Oropeza Creatinine [Mass/Vol] 1.37 mg/dL Critically high 0.70-1.30 [facility] Comment on above: Performed By: #### T SH, LIPID, CMP #### [facility] [address] [place] [address] Dr. Mychal Oropeza EGFR-AF TAIWANESE >60 Normal >=60 [facility] Comment on above: Performed By: #### T SH, LIPID, CMP #### [facility] [address] [place] [address] Dr. Mychal Oropeza EGFR-NON AF TAIWANESE 55 mL/min/1.73m2 Critically low >=60 [facility] Comment on above: Performed By: #### T KADIE, LIPID, CMP #### [facility] [address] [address] [address] Mychal Oropeza Globulin (S) [Mass/Vol] 3.7 g/dL Normal [facility] Comment on above: Performed By: #### T KADIE, LIPID, CMP #### [facility] [address] [address] [address] Mychal Oropeza Glucose [Mass/Vol] 111 mg/dL Critically high 74-106 [facility] Comment on above: Performed By: #### T KADIE, LIPID, CMP #### [facility] [address] [place] [address] Dr. Mychal Oropeza Potassium [Moles/Vol] 3.6 mmol/L Normal 3.5-5.1 [facility] Comment on above: Performed By: #### T KADIE, LIPID, CMP #### [facility] [address] [place] [address] Dr. Mychal Oropeza Protein [Mass/Vol] 7.6 g/dL Normal 6.4-8.2 [facility] Comment on above: Performed By: #### T KADIE, LIPID, CMP #### [facility] [address] [place] [address] Dr. Mychal Oropeza Sodium [Moles/Vol] 135 mmol/L Critically low 136-145 [facility] Comment on above: Performed By: #### T KADIE, LIPID, CMP #### [facility] [address] [place] [address] Dr. Mychal Oropeza Urea nitrogen [Mass/Vol] 14.0 mg/dL Normal 7.0-18.0 [facility] Comment on above: Performed By: #### T KADIE, LIPID, CMP #### [facility] [address] [address] [address] Mychal Oropeza Urea nitrogen/Creatinine [Mass ratio] 10.2 mg/mg Normal [facility] Comment on above: Performed By: #### T KADIE, LIPID, CMP #### [facility] [address] [place], [place] [address] Dr. Mychal Oropeza TSHon 05-27-2022 TSH 2.907 uIU/mL Normal 0.358-3.740 [facility] Comment on above: Performed By: #### T SH, LIPID, CMP #### [facility] [address], [place] [address] Dr. Mychal Oropeza TESTOSTERONE, TOTALon 2021 Testosterone [Mass/Vol] 324 ng/dL Normal 264-916 [facility] Comment on above: Result Comment: Adul t male reference interval is based on a population of healthy nonobese males (BMI <30) between 19 and 39 years old. bouchra Quinones.al. JCEM 2017,102;5958-1701. PMID: [id number]. Performed By: #### T ESTTOT #### [facility] [address] [address] [address] Mychal Oropeza XR SPINE CERVICAL WITH [...] fair flexion. No instability is noted. Normal [facility] XR SPINE LUMBAR W BENDINGon 02-10-2021 XR [...] good range of motion without instability. Normal [facility] XR SPINE LUMBAR W BENDINGOrd ered By: Maik Barbosa on 02-10-2021 IMPRESSION: Lumbar s pine visually is fairly well preserved. There is no evidence of fracture, listhesis, significant disc space narrowing or major degenerative changes. There is a very good range of motion without instability. [employer] EXAM: XR SPINE LUMBA R W BENDING [...] motion. There is no listhesis or instability. [facility], Interfaces - 02/10/2021 4:52 PM EDT [...] very good range of motion without instability. [facility] Vital Signs Date Time Vital Sign Value Performing Clinician Facility 08-31-2023 15:30-0500 Body height 170.18 cm Kell Bowling Other [facility] Other 08-31-2023 15:30-0500 Body mass index (BMI) [Ratio] 33.04 kg/m2 Kell Bowling Other [facility] Other 08-31-2023 15:30-0500 Body weight 95.71 kg Kell Bowling Other [facility] Other 08-31-2023 15:30-0500 Diastolic blood pressure 77 mm[Hg] Kell Bowling Other [facility] Other 08-31-2023 15:30-0500 Systolic blood pressure 119 mm[Hg] Kell Bowling Other [facility] Other 08-01-2023 08:30-0500 Body height 170.18 cm Kell Bowling Other [facility] Other 08-01-2023 08:30-0500 Body mass index (BMI) [Ratio] 35.14 kg/m2 Kell Bowling Other [facility] Other 08-01-2023 08:30-0500 Body weight 101.79 kg Kell Bowling Other [facility] Other 08-01-2023 08:30-0500 Diastolic blood pressure 82 mm[Hg] Kell Bowling Other [facility] Other 08-01-2023 08:30-0500 Systolic blood pressure 118 mm[Hg] Kell Bowling Other [facility] Other 04-16-2021 12:05-0400 Diastolic blood pressure 97 mm[Hg] Maik Barbosa MD Work Phone: [facility] 04-16-2021 12:05-0400 Heart rate 54 /min Maik Barbosa MD Work Phone: [facility] 04-16-2021 12:05-0400 Respiratory rate 16 /min Maik Barbosa MD Work Phone: [facility] 04-16-2021 12:05-0400 SaO2% (BldA) [Mass fraction] 95 % Maik Barbosa MD Work Phone: [facility] 04-16-2021 12:05-0400 Systolic blood pressure 142 mm[Hg] Maik Barbosa MD Work Phone: [facility] 03-17-2021 08:04-0400 Body height 170.2 cm Maik Barbosa MD Work Phone: [facility] 03-17-2021 08:04-0400 Body mass index (BMI) [Ratio] 34.61 kg/m2 Maik Barbosa MD Work Phone: [facility] 03-17-2021 08:04-0400 Body weight 100.25 kg Maik Barbosa MD Work Phone: [facility] 03-17-2021 08:04-0400 Diastolic blood pressure 93 mm[Hg] Maik Barbosa MD Work Phone: [facility] 03-17-2021 08:04-0400 Heart rate 74 /min Maik Barbosa MD Work Phone: [facility] 03-17-2021 08:04-0400 Respiratory rate 20 /min Maik Barbosa MD Work Phone: [facility] 03-17-2021 08:04-0400 SaO2% (BldA) [Mass fraction] 96 % Maik Barbosa MD Work Phone: [facility] 03-17-2021 08:04-0400 Systolic blood pressure 132 mm[Hg] Maik Barbosa MD Work Phone: [facility] 02-24-2021 12:02-0400 Diastolic blood pressure 100 mm[Hg] Maik Barbosa MD Work Phone: [facility] 02-24-2021 12:02-0400 Heart rate 55 /min Maik Barbosa MD Work Phone: [facility] 02-24-2021 12:02-0400 Respiratory rate 18 /min Maik Barbosa MD Work Phone: [facility] 02-24-2021 12:02-0400 SaO2% (BldA) [Mass fraction] 95 % Maik Barbosa MD Work Phone: [facility] 02-24-2021 12:02-0400 Systolic blood pressure 141 mm[Hg] Maik Barbosa MD Work Phone: [facility] 02-10-2021 11:46-0400 Body height 170.2 cm Maik Barbosa MD Work Phone: [facility] 02-10-2021 11:46-0400 Body mass index (BMI) [Ratio] 34.61 kg/m2 Maik Barbosa MD Work Phone: [facility] 02-10-2021 11:46-0400 Body weight 100.25 kg Maik Barbosa MD Work Phone: [facility] 02-10-2021 11:46-0400 Diastolic blood pressure 81 mm[Hg] Maik Barbosa MD Work Phone: [facility] 02-10-2021 11:46-0400 Heart rate 64 /min Maik Barbosa MD Work Phone: [facility] 02-10-2021 11:46-0400 Respiratory rate 18 /min Maik Barbosa MD Work Phone: [facility] 02-10-2021 11:46-0400 SaO2% (BldA) [Mass fraction] 99 % Maik Barbosa MD Work Phone: [facility] 02-10-2021 11:46-0400 Systolic blood pressure 121 mm[Hg] Maik Barbosa MD Work Phone: [facility] Encounters Encounter Date Encounter Type Care Provider Facility Start: 07-31-2024 ambulatory Chata Page Facility:Chiki Oropeza Start: 08-31-2023 End: 08-31-2023 ambulatory Kell Bowling Other [facility] Other Start: 08-31-2023 Office outpatient vi sit 15 minutes Kell Bowling [facility] Start: 08-01-2023 End: 08-01-2023 ambulatory Kell Bowling Other [facility] Other Start: 08-01-2023 Encounter for genera l adult medical examination without abnormal findings Kell Bowling [facility] Start: 08-01-2023 Periodic preventive med est patient 40-64yrs Kell Bowling [facility] Start: 07-26-2023 End: 07-27-2023 ambulatory Chata Page [...] examination without abnormal findings DR KELL BOWLING [facility] Start: 05-27-2022 End: 05-28-[address] KELL BOWLING Facility:[facility] Start: 05-27-2022 End: 05-28-2022 Encounter for general adult medical examination without abnormal findings DR KELL BOWLING Facility:[facility] Start: 01-19-2022 End: 01-20-[address] KELL BOWLING Facility:[facility] Start: 04-16-2021 End: 04-16-2021 Patient encounter procedure Maik Barbosa MD Work Phone: [facility] Comment on above: Lumbar spondylosis ( Primary Dx); Chronic pain syndrome; Myofascial pain Start: 03-17-2021 End: 03-17-2021 Office outpatient visit 15 minutes Maik aBrbosa MD Work Phone: [facility] Comment on above: Lumbar spondylosis ( Primary Dx); Lumbar radiculopathy; Spinal stenosis of cervical region; Chronic pain syndrome; Myofascial pain Start: 02-24-2021 End: 02-24-2021 Clinical Support Encounter Maik Barbosa MD [facility] Comment on above: Myofascial pain (Ara reji Dx) Start: 02-10-2021 End: 02-10-2021 Subsequent hospital visit by physician Maik Barbosa MD Work Phone: [facility] Comment on above: Arrived Start: 02-10-2021 End: 02-10-2021 Office outpatient new 45 minutes Maik Barbosa MD Work Phone: [facility] Comment on above: Myofascial pain (Ara reji Dx); Arthropathy of cervical facet joint; Spondylosis of lumbar region without myelopathy or radiculopathy; Chronic pain syndrome; Compliance with medication regimen Procedures Date Procedure Procedure Detail Performing Clinician Start: 05-27-[address] KELL BOWLING Comment on above: Performed By: #### P [facility] #### [facility] [address] [place] [address] Dr. Mychal Oropeza Start: 02-10-2021 Radex spine lumbscrl compl w/bending views min 6 Maik Barbosa MD Work Phone: Plan of Treatment Date Care Activity Detail Author Start: 05-21-2021 End: 05-21-2021 Patient encounter procedure 05/21/2021 Office Visit Anesthesiology Pain Mgt Maik Barbosa MD [address] [place] [address] [facility] Start: 05-12-2021 Influenza vaccination A [facility] Start: 05-07-2021 End: 05-07-2021 Patient encounter procedure 05/07/2021 Office Visit Anesthesiology Pain Maik Carbajal MD [address] [place] [address] [facility] Start: 05-03-2021 End: 05-03-2021 Patient encounter procedure 05/03/2021 Office Visit Anesthesiology Pain Mgt Maik Barbosa MD [address] [place] [address] [facility] Start: 04-27-2021 End: 04-27-2021 Patient encounter procedure 04/27/2021 Office Visit Anesthesiology Pain Mgt Maik Barbosa MD [address] [place] [address] [facility] Start: 03-17-2021 End: 03-17-2021 Patient encounter procedure 03/17/2021 Office Visit Anesthesiology Pain Mgt Maik Barbosa MD [address] [place] [address] [phone] [facility] Start: 02-24-2021 End: 02-24-2021 Patient encounter procedure 02/24/2021 Office Visit Anesthesiology Pain Mgt Maik Barbosa MD [address] [place] [address] [facility] Start: 02-10-2021 End: 02-11-2021 DRUG SCREEN MED COMPLIANCE I DRUG SCREEN MED COMPLIANCE I Lab Routine Compliance with medication regimen Expected: 02/10/2021, Expires: 02/11/2021 [facility] Comment on above: Expected: 02/10/2021 , Expires: 02/11/2021 Start: 02-08-2020 Prostate specific antigen measurement PROSTATE CANCER SCREENING DISCUSSION [facility] Start: 02-08-2020 Zoster vaccine hzv l wilmar for subcutaneous use ZOSTER (SHINGLES) VACCINE (1 of 2) [facility] Start: 2015 Colonoscopy COLORECTAL CAN CER SCREENING DISCUSSION [facility] Start: 2010 Fasting lipid profile LIPID SCREENIN G [facility] Start: 1989 Third diphtheria, tetanus and acellular pertussis (DTaP) vaccination TDAP (ADULT) [facility] Start: 02-08-1988 Tetanus vaccination TETANUS [facility] Start: 1985 HIV screening HIV SCREENING DISCUSSI ON [facility] Start: 1982 COVID-19 VACCINE (1) COVID-19 VACCIN E (1) [facility] Start: 1970 Hepatitis C antibody , confirmatory test HEPATITIS C VIRUS SCREENING [facility] Payers Date Payer Category Payer Unknown [id number] 2019 Unknown [id number] 2018 Unknown [id number] 1. [id number] 1970 Unknown [id number] 2.16.84 [id number] 1970 Unknown [id number] .16.84 [id number] 1970 Unknown [id number] .16.84 [id number] 1970 Unknown [id number] 2.16.84 [id number] 1970 Unknown [id number] 2.16.84 [id number] 1970 Unknown [id number] 2.16.84 [id number] 1970 Unknown [id number] 2.16.84 [id number] 1970 Unknown [id number] 2.16.84 [id number] 1970 Unknown [id number] 2.16.8 [id number] 1970 Unknown [id number] 2.16.8 [id number] 1970 Unknown [id number] 2.16.8 [id number] 1959 Self-pay [id number] Unknown [id number] 2.16.84 [id number] Unknown [id number] Social History Date Type Detail Facility Start: 02-10-2021 End: 03-17-2021 Tobacco smoking status NHIS Never smoker [facility] Start: 02-10-2021 End: 03-17-2021 Tobacco use and exposure Never used [facility] Start: 02-10-2021 End: 03-17-2021 Alcohol intake Current drinker of alcohol (finding) [facility] Start: 02-10-2021 End: 03-17-[address] [facility] Start: 02-10-2021 Alcohol Comment 5 beers/week [facility] Start: 1970 Sex Assigned At Not on file [facility] Sex Assigned At Sex Assigned At Bir th [facility] Other Clinical Notes 02-10-2021 to 08-31-2023 Note Date & Type Note Facility 08-31-2023 Evaluation note Encounter Date Diagnosis Assessment Notes Aug, Other obesity due to excess calories (ICD-10 - E66.09) Patient has clearly made a good michael [...] to ER and Follow-up with me immediately. Aug, Body mass index [BMI] 33.0-33.9, adult (ICD-10 - Z68.33) [facility] Other 11-21-2023 Evaluation note* Encounter Date Diagnosis Assessment Notes Treatment Notes Treatment Clinical Notes Jul, Well adult exam (ICD-10 - [...] (ICD-10 - M54.50) Pt requests referral to [facility]. He hopes to lessen his use of NSAIDs to improve his renal function. Jul, Other chronic pain (ICD-10 - G89.29) Jul, JOSÉ (obstructive sleep apnea) (ICD-10 - G47.33) Form completed for [facility]. Jul, Class 2 obesity [...] to ER and Follow-up with me immediately. [facility] Other 08-06-2021 History and physical note* Miak Barbosa MD - 04/16/2021 11:30 AM EDT [...] bilateral lumbar facet block documented in this [facility]08-06-2021 History of Present illness Narrative* Humera Genao RN - 04/16/2021 11:30 AM EDT SCRUB - Shellie Alaniz RN RT - RT Ilia SENIOR PHYSICIAN - N/A MACHINING ASSOCIATE - Aurelio Genao RN Site cleansed with [...] and earlier as needed. documented [facility] this [facility] CenterIn[facility] [id number] Instructions* Patient Instructions* Geovanna Degroot RN - 04/16/2021 11:30 AM EDT CABIRI - [facility] Pain Management WHAT TO EXPECT AFTER A PROCEDURE Follow up appointment: Call the office ([phone]) if you have any questions or develop [...] to call us at . Thank you, [facility] History of Present illness Narrative* Maik [...] tried OTC tylenol, celebrex with somemild relief. [place] has helped in the past, but would [...] Denies dysuria or frequency documented in this [facility]07-07-2021 Instructions* Patient Instructions* Geovanna Degroot RN - [...] when current is passed using the radiofrequency [employer] ne. This numbs the nerves. What should [...] complications are extremely rare. documented in this [facility]06-16-2021 History and physical note* Maik Barbosa MD [...] trapezius, and lumbar paraspinal [facility] History of Present illness Narrative* Madina Summers RN - 02/24/2021 11:15 AM EDT PHYSICIAN - SCRUB - Kitty Martinez RN MACHINING ASSOCIATE - [facility] Site cleansed with chloroprep. Procedure: cervical paraspinal [...] Denies dysuria or frequency documented in this [facility]06-02-2021 History of Present illness Narrative* Maik Barbosa [...] Social Gatherings with Friends and Family: Attends [employer]: Active Member of Clubs or Organizations: [...] tried OTC tylenol, celebrex with somemild relief. [place] has helped in the past, but would [...] within the last year. documented in this [facility]06-02-2021 Instructions* Patient Instructions* Geovanna Degroot RN - [...] read the attached handout from the [employer] with guidelines and recommendations for [...] complications are extremely rare. documented [facility]* Diagnosis Myofascial pain- Primary Mylagia and myositis, unspecified Arthropathy of cervical facet joint Cervical spondylosis without myelopathy Spondylosis of lumbar region without myelopathy or radiculopathy Lumbosacral spondylosis without myelopathy Chronic pain syndrome Compliance with medication regimen [facility] Diagnosis Spondylosis of lumbar region without myelopathy or radiculopathy Lumbosacral spondylosis without myelopathy [facility] Diagnosis Myofascial pain- Primary Mylagia and myositis, unspecified documented in this [facility]* Diagnosis Lumbar spondylosis- Primary Lumbosacral spondylosis without myelopathy Lumbar radiculopathy Thoracic or lumbosacral neuritis or radiculitis, unspecified Spinal stenosis of cervical region Spinal stenosis in cervical region Chronic pain syndrome Myofascial pain Mylagia and myositis, unspecified documented in this [facility]* Diagnosis Lumbar spondylosis- Primary Lumbosacral spondylosis without myelopathy Chronic pain syndrome Myofascial pain Mylagia and myositis, unspecified [facility] Narrative - Reported* Type Description Date Medical History Elevated cholesterol with elevat ed triglycerides Medical History Low serum testosterone level Medical History Lumbar pain Medical History Hypertension Medical History Diverticulosis Surgical History R shoulder arthroscopy Surgical History FB R wrist Surgical History Umbilical hernia repair 07/12/20 23 Surgical History Colonoscopy 06/25/2023 Hospitalization History SEE SURGICAL HX [facility] Other Reason for Referral Status Reason Specialty Diagnoses / Procedures Referred By Contact Referred To Contact Auth Not Needed Diagnoses Myofascial pain Chronic pain syndrome Maik Barbosa MD [address] [place] [address] Scheduling Instructions Please PA and schedule: neck and back TPI (pt will need a [address] Barbosa) Reason *FU 08/08 chronic lumbar pain, would benefit from less NSAID use. Diagnosis 1 Low back pain, unspe cified (M54.50) Referral Organization [facility] xochitl Referring Provider First Name Kell Referring Provider Last Name Tawnya Referring Provider Specialty Family Medi cine Referred Organization [facility] Referred Address [address], [place],[address] Referred Provider Specialty Pain Medicin e Referral Priority Routine General Notes Es Cooper 05:14:13 PM >received today, attachments made, notes locked, referral faxed Clinical Notes f: [id number] Summary Purpose Family History No Family History Records FoundNo Family History Records FoundNo Family History Records Found Advance Directives No Advanced Directives Records FoundNo Advanced Directives Records FoundNo Advanced Directives Records Found Additional Source Comments Reason for Visit (unrecogniz ed section and content) 1 month Follow up Reason Comments Pain Reason Comments Neck Pain Status Reason Specialty Diagnoses / Procedures Referre d By Contact Referred To Contact Closed Diagnoses Myofascial pain Chronic pain syndrome Maik Barbosa MD [address] [place] [address] Reason Comments Pain Specialty Diagnoses / Procedures Referred By Contac t Referred To Contact Diagnoses Lumbar facet arthropathy Maik Barbosa MD [address] [place] [address] Referral ID Status Reason Start Date Expiration Date Visits Re quested Visits Authorized [id number] Closed 04/14/2021 05/09/2022 1 1 (unrecognized sect ion and content) No Status Records FoundNo Status Records FoundNo Status Records Found INFORMATION SOURCE (unrecogn ized section and content) DATE CREATED AUTHOR 05/10/2021 [facility] DATE CREATED AUTHOR AUTHOR'S ORGANIZ ATION 01/13/2023 [facility] DATE CREATED AUTHOR AUTHOR'S ORGANIZ ATION 07/27/2023 [facility] (unrecognized sec tion and content) 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 [employer] [facility]. provides no warranty or guarantee of the accuracy or completeness of information in this document.
--- NOTE | 2023-09-07 07:56 | PM.CN ---
Consult Note: HPI Data of Consult Patient: known to practice within the last 3 years Requesting Physician: Rhonda Cheng NP Primary Care Provider: Kell Jack MD Consult Narrative Reason for consult: f/u Narrative: Manuel Burgos a pleasant 53 year old male presents for evaluation and management of chronic back pain. Recently underwent bilateral L4-5 L5-S1 facet medial branch block #1 with 100% pain relief and functional improvement immediately following and 6 hours after the procedure. Today pain 8/10 in low back, worse with all activity and improved with lying and sleeping. Has noticed mild temporary relief from dry needling. At this time no benefit from PT/aquatherapy. Patient taking diclofenac 75mg BID robaxin 500mg PRN and duloxetine 30 mg daily without side effects. Patient utilizing topical cream from transdermal therapeutics with benefit. cc:: CC: Rhonda Cheng NP Review of Systems ROS Status of ROS 10 or more systems reviewed and unremarkable except as noted in history and below Musculoskeletal Reports: back pain PFSH PFSH Medical History (Updated 09/07/23 @ 07:59 by Rhonda Cheng NP) Heartburn ?R12 - Heartburn (ICD-10) Umbilical hernia ?K42.9 - Umbilical hernia without obstruction or gangrene (ICD-10) H/O retained foreign body fully removed ?Z87.821 - Personal history of retained foreign body fully removed (ICD-10) Hypertension ?I10 - Essential (primary) hypertension (ICD-10) Glaucoma ?H40.9 - Unspecified glaucoma (ICD-10) Surgical History History of surgery on right wrist ?Z98.890 - Other specified postprocedural states (ICD-10) H/O arthroscopy of shoulder ?Z98.890 - Other specified postprocedural states (ICD-10) H/O colonoscopy ?Z98.890 - Other specified postprocedural states (ICD-10) Family History Aunt Family history of cancer Grandmother Family history of cancer Grandfather Family history of cancer Other Family history of diabetes mellitus Family history of hypertension Family history of myocardial infarction Social History Within the past year, how often did you have a drink containing alcohol: 2-3 times a week Within the past year, how many standard drinks containing alcohol did you have on a typical day: 5 or 6 Within the past year, how often did you have six or more drinks on one occasion: weekly Total score: 7 Score interpretation: A score of 4 or more indicates drinking is likely to affect patient's safety. 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 Highest level of school completed/degree received: Associate degree: academic program Meds Home Medications and Allergies Home Medications Medication Instructions Recorded Confirmed Type ascorbic acid (vitamin C) 250 mg 250 mg PO DAILY 06/22/23 08/31/23 History tablet atenolol 50 mg-chlorthalidone 25 1 tab PO DAILY 06/22/23 08/31/23 History mg tablet diclofenac sodium 75 mg 75 mg PO BID 06/22/23 08/31/23 History tablet,delayed release duloxetine 30 mg capsule,delayed 30 mg PO DAILY 06/22/23 08/31/23 History release testosterone 1.62 % (20.25 mg/1.25 1 packet transdermal QAM 06/22/23 08/31/23 History gram) transdermal gel packet (AndroGel) vitamin B comp and C no.3 15 mg-10 1 cap PO DAILY 06/22/23 08/31/23 History mg-50 mg-5 mg-300 mg capsule (B Complex Plus Vitamin C) methocarbamol 750 mg tablet 750 mg PO TID 08/31/23 08/31/23 History Allergies Allergy/AdvReac Type Severity Reaction Status Date / Time No Known Drug Allergies Allergy Verified 07/03/23 13:23 Exam Constitutional Documenting provider has reviewed patient's vital signs: yes Common normals: no apparent distress, oriented x3, healthy appearing, alert and well nourished General appearance: cooperative [facility] Common normals: normocephalic, hearing grossly normal bilaterally and moist oral mucous membranes Head and scalp: normocephalic Eye Common normals: PERRL Pupil: PERRL Neck & C-Spine Common normals: full ROM General: normal visual inspection Chest Common normals: inspection of chest normal Respiratory Common normals: normal respiratory effort, no retractions and no use of accessory muscles Back & Pelvis Lumbar spine/lower back: ROM limited and pain with ROM Extremity Common normals: normal to inspection and full ROM Neuro Common normals: oriented x3, CN's II-XII intact bilaterally, moves all extremities, no focal motor deficits, no sensory deficits noted, deep tendon reflexes 2+ bilaterally and gait normal Sensorium/orientation: alert Motor exam: strength 5/5 throughout and no movement abnormalities noted Psych Common normals: mental status grossly normal, thought process normal, cooperative, affect normal, speech normal and activity/motor behavior normal Speech: normal speech Thought process: normal thought process Assessment and Plan Assessment and Plan (1) Lumbar spondylosis: Assessment and Plan: The patient has had over 3 months of moderate to severe low back pain with functional impairment and inadequate response to conservative care including NSAIDS (unless there are contraindication such as concurrent blood thinners), multiple oral or topical pain medications, and home exercise program/physical therapy.? Patient has completed >6 weeks of guided home exercise program and/or formal physical therapy program without relief of their symptoms.? I have reviewed the imaging of the lumbar spine and no red flags were identified.? The imaging reveals radiographic findings consistent with lumbar spondylosis We discussed the risks and benefits of the procedure with the patient, and we are NOT planning on using sedation as outlined in the guidelines from Medicare unless there is a documented reason that sedation would be strongly recommended.?? The procedure will be completed with fluoroscopic guidance.? (2) Myofascial pain: Plan bilateral facet medial branch block at L4-5 L5-S1 #2 working towards thermal RFA continue HEP/PT as tolerated continue current medications, tolerating well without side effects refill transdermal therapeutics cream f/u 1 week after injection
== END 2023-09-07 07:50 | disposition home or self-care (01) ==
LOC: PM 07:49
PROVIDERS: PCP Family Medicine; Visit Provider Nurse Practitioner
DX: M47.816 Spondylosis without myelopathy or radiculopathy, lumbar region (principal); M79.18 Myalgia, other site
CPT/HCPCS: G0463

== ENCOUNTER 2023-09-11 09:15 | Outpatient (RCR) | payer BC, SELFPAY | END 2023-09-13 12:27 | disposition home or self-care (01) | LOC: PT 09:15 | PROVIDERS: PCP Family Medicine; Visit Provider Nurse Practitioner | DX: M47.816 Spondylosis without myelopathy or radiculopathy, lumbar region (principal) | CPT/HCPCS: 20561; 97140 ==

== ENCOUNTER 2023-09-19 10:41 | Day surgery (SDC) | payer BC, SELFPAY ==
--- OUTSIDE RECORDS SUMMARY | 2023-09-19 10:48 | XMS_ITS | CCD ---
Author Name Unknown Address [address] [place] [address] Organization [facility] Care Team Providers Care Web Marketing Assistant Name Role Phone Kell Bowling MD Primary Care Provider [phone] TAWNYA, DR KELL Romero Primary Care Unavailable [...] ., DR CINTRON Admitting Unavailable BOWLING, DR EKLL Romero Admitting Unavailable BOWLING, DR KELL Romero [...] physicia Propensity to adverse reactions 9 Comment:Done [employer] Other (2 sources) Allergies Reconciled Propensity to adverse reactions Unknown [employer] Other Medications Current Medications Medication Drug Class(es) Dates Sig (Normalized) Sig (Original) Amoxicillin (1 source) Penicillin-class Antibacterial Amoxicillin Active Atenolol / Chlorthalidone (7 sources) Thiazide-like Diuretic, beta-Adrenergic Daron Start: 08-22-2022 take 1 tablet by mouth once daily Atenolol-Chlortha lidone 50-25mg atenoloL-chlortha lidone 50-25mg, 1 (one) Tablet daily # 90, 08/22/2022, Ref. x1. Active oral daily for 90 *Pick strength-form from [employer] for eRX* Aug, Active Start: 02-05-2021 atenolol-chlor thalidone 50-25 MG tablet cyclobenzaprine hydrochloride 10 mg oral tablet (7 sources) Muscle Relaxant Start: 05-31-2022 take 1 tablet by mouth three times daily as needed cyclobenzaprine 10mg cyclobenzaprine 10mg, 1 (one) Tablet three times daily, as needed # 30, 05/31/2022, No Refill. Active oral three times daily, as needed for 0 *Reorder from [employer] for eRx and Interaction Alerts* May, Active [...] Refill. Active transdermal for 0 *Reorder from [employer] for eRx and Interaction Alerts* May, Active [...] FERMIN, Chata Inman Where: [facility] Lab Reportson 07-26-2023 Lab Reports [id number]#1.00TIFF Normal [facility] Lab Reports [id number]#1.00TI FF Normal [facility] Medication Consenton 023 Medication Consent [id number]#1.00TI FF Normal [facility] Patient Educationon 07-26-20 23 Patient Education Urology [...] Follow these instructions at home: ? Take [id number] and prescription medicines only as told by [...] from the medicine (more content not included)... [facility] Reminderson 07-26-2023 Reminders - From: Meme Haley To: EU - Recalls Lue; Sent: 07/26/2023 11:33:52 EST Show up: 05/26/2024 12:33:00 EDT Subject: Labs Due Date/Time: 07/26/2024 11:33:00 EST Pt will need T Level, HCT and PSA prior to appt. PSA is done by PCP. [facility] Screenson 07-26-2023 Screens [id number]#1.00TI FF [facility] Screens [id number]#1.00TI FF [facility] Urology Office/Clinic Noteon 07-26-2023 Urology Office/Clinic Note Chief Complaint 6m Testosterone Level HPI Staff 6m Testosterone Level DX: Hypogonadism, Impotence & BPH *Cialis 10mg PRN (occasionally uses 20mg) & Androgel 2 pumps qd PSA 07/05/23- 0.78 CBC/CMP 07/05/23 *BUN 21.0 & Crea 1.48 eGFR 50 *Hgb 12.3 & Hct 38.9 A1C 07/05/23- 5.8 Testosterone 07/20/23- 366 (810-564) Pt has no concerns at this time. [...] mRNA BNT-162b2 vax (more content not included)... [facility] Comment on above: Result Comment: Elec tronically Signed By: Chata Page MD\.br\Date and Time Signed: 07/26/23 08:57 EST\.br\Electronically Co-Signed By: Meme Haley\.br\Date and Time Co-Signed: 07/26/23 08:37 EST Lab Reportson 07-24-2023 Lab Reports [id number]#1.00TIF F [facility] Ambulatory Visit Summaryon 0 01-11-2023 Ambulatory Visit Summary MANUEL ROSAS :1970 Visit Date:01/11/2023 Ambulatory Visit Instructions Your Diagnosis Impotence Male hypogonadism BPH (benign prostatic hyperplasia) Tests Performed Urnls Dip Stick Auto w/o Microscopy POC [id number] Your Care Team Attending Physician - Chata [...] Chata Page MD Where: [facility] Patient Educationon 01-12-20 Patient Education [...] provider. Document Revised: 08/03/2020 Document Reviewed: 08/03/2020 [employer] Patient Education ? 2022 [employer]. Normal [facility] Screenson 01-11-2023 Screens [id number]#1.00CD :127 Normal [facility] Screens [id number]#1.00CD :127 Normal [facility] Urology Office/Clinic Noteon 01-11-2023 Urology Office/Clinic Note Chief Complaint 6 month follow up HPI Staff 6 month follow up w/testosterone level 487 done 01/06/23, previous testosterone level 410 done 06/20/22. Previous DX: BPH, impotence, male hypogonadism. Pt is currently taking Cialis 10mg PRN, and AndroGel 2 pumps daily-refill on both medications sent to [facility] in [place]. IPSS is , MAKI 22. Dysuria: denies [...] Androgel 2 pumps daily. Refill sent to [facility]. Good range and sx improvement, prior CBC [...] Urine Dips (more content not included)... Normal [facility] Comment on above: Result Comment: Elec tronically Signed By: Chata Page MD\.br\Date and Time Signed: 01/11/23 19:10 EDT\.br\Electronically Co-Signed By: Ericka Mcconnell.br\Date and Time Co-Signed: 01/11/23 10:32 EDT Lab Reportson 01-10-2023 Lab Reports [id number]#1.00CD: 127 Normal [facility] TESTOSTERONE, TOTALon 2022 Testosterone [Mass/Vol] 487 ng/dL Normal 264-916 [facility] Comment on above: Result Comment: Adul t male reference interval is based on a population of healthy nonobese males (BMI <30) between 19 and 39 years old. Joni et.al. JCEM 2017,102;9224-5629. PMID: 60634575. Performed By: #### T ESTTOT #### [facility] [address] [place] [address] Dr. Mychal Oropeza Pre-Certification Formon Pre-Certification Form [id number]#1.00CD: 127 Normal [facility] Pre-Certification Formon Pre-Certification Form [id number]#1.00CD: 127 Normal [facility] Pre-Certification Formon Pre-Certification Form [id number]#1.00CD: 127 Normal [facility] US SINGLE QUAD RT UPPERon US SINGLE [...] by: CHRISTOFER SCHAEFFER Date: 2022-08-25 07:07 Normal [facility] Historical Records Officeon 08-19-2022 Historical Records Office [id number]#1.00CD: 127 Normal [facility] Pre-Certification Formon Pre-Certification Form [id number]#1.00CD: 127 Normal [facility] Patient Letter FTMCon 2021 Patient Letter [facility] (Inserted Image. Nga ble to display) August 18, 2022 ARMANDORAYMUNDO [address] [place] [address] RAYMUNDO ROSASEL 1970 Dear Whomever it may [...] Sincerely, Dr. Chata Page MD [facility] [address] [place] [address]. [place] [address] Normal [facility] TESTOSTERONE, TOTALon 2021 Testosterone [Mass/Vol] 410 ng/dL Normal 264-916 [facility] Comment on above: Result Comment: Adul t male reference interval is based on a population of healthy nonobese males (BMI <30) between 19 and 39 years old. Joni, et.al. JCEM 2017,102;1265-3091. PMID: 93294601. Performed By: #### T ESTTOT #### [facility] [address] [address] [address] Mychal Oropeza CBC AUTO DIFFon 05-27-2022 BASO # 0.1 103/ul Normal 0.0-0.1 [facility] Comment on above: Performed By: #### C BC #### [facility] [address] [place] [address] Dr. Mcyhal Oropeza Basophils/100 WBC (Bld) 0.9 % Normal 0.2-2.0 [facility] Comment on above: Performed By: #### C BC #### [facility] [address] [place] [address] Dr. Mychal Oropeza EO # 0.7 103/ul Normal 0.0-0.7 [facility] Comment on above: Performed By: #### C BC #### [facility] [address] [place] [address] Dr. Mychal Oropeza Eosinophils/100 WBC (Bld) 6.7 % Normal 0.9-7.0 [facility] Comment on above: Performed By: #### C BC #### [facility] [address] [place] [address] Dr. Mychal Oropeza Erythrocyte distribution width (RBC) [Ratio] 12.8 % Normal 11.0-15.0 [facility] Comment on above: Performed By: #### C BC #### [facility] [address] [place] [address] Dr. Mychal Oropeza Hematocrit (Bld) [Volume fraction] 46.9 % Normal 42.0-54.0 [facility] Comment on above: Performed By: #### C BC #### [facility] [address] [place] [address] Dr. Mychal Oropeza Hemoglobin (Bld) [Mass/Vol] 16.2 g/dL Normal 14.0-18.0 [facility] Comment on above: Performed By: #### C BC #### [facility] [address] [place] [address] Dr. Mychal Oropeza IG # 0.04 10e3/ul Critically high 0.00-0.03 [facility] Comment on above: Performed By: #### C BC #### [facility] [address] [place] [address] Dr. Mychal Oropeza IG % 0.4 % Normal 0.0-0.5 [facility] Comment on above: Performed By: #### C BC #### [facility] [address] [address] [address] Mychal Oropeza LYMPH # 4.1 103/ul Critically high 1.2-3.8 [facility] Comment on above: Performed By: #### C BC #### [facility] [address] [address] [address] Mychal Oropeza Lymphocytes/100 WBC (Bld) 37.7 % Normal 20.5-60.0 [facility] Comment on above: Performed By: #### C BC #### [facility] [address] [place] [address] Dr. Mychal Oropeza MANUAL DIFF REQ NO Normal [facility] Comment on above: Performed By: #### C BC #### [facility] [address] [place] [address] Dr. Mychal Oropeza MCH (RBC) [Entitic mass] 30.7 pg Normal 25.9-34.0 [facility] Comment on above: Performed By: #### C BC #### [facility] [address] [place] [address] Dr. Mychal Oropeza MCHC (RBC) [Mass/Vol] 34.5 g/dL Normal 29.9-35.2 [facility] Comment on above: Performed By: #### C BC #### [facility] [address] [place] [address] Dr. Mychal Oropeza MCV (RBC) [Entitic vol] 88.8 fL Normal 80.0-94.0 [facility] Comment on above: Performed By: #### C BC #### [facility] [address] [place] [address] Dr. Mychal Oropeza MONO # 0.9 103/ul Critically high 0.3-0.8 [facility] Comment on above: Performed By: #### C BC #### [facility] [address] [place] [address] Dr. Mychal Oropeza Monocytes/100 WBC (Bld) 8.1 % Normal 1.7-12.0 [facility] Comment on above: Performed By: #### C BC #### [facility] [address] [address] [address] Mychal Oropeza NEUT # 5.1 103/ul Normal 1.4-6.5 [facility] Comment on above: Performed By: #### C BC #### [facility] [address] [address] [address] Mychal Oropeza Neutrophils/100 WBC (Bld) 46.2 % Normal 43.0-75.0 [facility] Comment on above: Performed By: #### C BC #### [facility] [address] [address] [address] Mychal Oropeza Platelet mean volume (Bld) [Entitic vol] 9.7 fL Normal 9.5-13.5 [facility] Comment on above: Performed By: #### C BC #### [facility] [address] [address] [address] Mychal Oropeza PLT 308 103/ul Normal 150-450 [facility] Comment on above: Performed By: #### C BC #### [facility] [address] [address] [address] Mychal Oropeza RBC 5.28 106/ul Normal 4.70-6.10 [facility] Comment on above: Performed By: #### C BC #### [facility] [address] [address] [address] Mychal Oropeza WBC 10.9 103/ul Normal 4.0-11.0 [facility] Comment on above: Performed By: #### C BC #### [facility] [address] [address] [address] Mychal Oropeza GLYCOHEMOGLOBIN A1Con 2021 ADA RECOMMENDATION SEE BELOW Normal [facility] Comment on above: Result Comment: ADA RECOMMENDED LIMIT 4.0 - 6.0 ADA THERAPEUTIC TARGET < 7.0 ACTION SUGGESTED > 7.0 Performed By: #### A 1C #### [facility] [address] [address] [address] Mychal Oropeza Glucose [Mass/Vol] 108 mg/dL Normal [facility] Comment on above: Performed By: #### A 1C #### [facility] [address] [address] [address] Mychal Oropeza HbA1c (Bld) [Mass fraction] 5.4 % Normal 4.5-6.2 [facility] Comment on above: Performed By: #### A 1C #### [facility] [address] [address] [address] Mychal Oropeza LIPID PROFILEon 05-27-2022 CHOL-HDL RATIO NORM SEE BELOW Normal [facility] Comment on above: Result Comment: 3.3 - 4.4 LOW RISK 4.4 - 7.1 AVERAGE RISK 7.1 - 11.0 MODERATE RISK >11.0 HIGH RISK Performed By: #### T SH, LIPID, CMP #### [facility] [address] [address] [address] Mychal Oropeza Cholesterol [Mass/Vol] 207 mg/dL Critically high <=200 [facility] Comment on above: Performed By: #### T SH, LIPID, CMP #### [facility] [address] [address] [address] Mychal Oropeza Cholesterol in HDL [Mass/Vol] 47 mg/dL Normal 40-60 [facility] Comment on above: Performed By: #### T SH, LIPID, CMP #### [facility] [address] [address] [address] Mychal Oropeza Cholesterol in LDL [Mass/Vol] 122.4 mg/dL Normal [facility] Comment on above: Performed By: #### T SH, LIPID, CMP #### [facility] [address] [address] [address] Mychal Oropeza Cholesterol.total/Ch olesterol in HDL [Mass ratio] 4.4 {ratio} Normal [facility] Comment on above: Performed By: #### T SH, LIPID, CMP #### [facility] [address] [address] [address] Mychal Oropeza HDL NORMAL > or = 60 mg/dl - LO W CARDIOVASCULAR RISK <40 mg/dl - HIGH CARDIOVASCULAR RISK Normal [facility] Comment on above: Performed By: #### T SH, LIPID, CMP #### [facility] [address] [address] [address] Mychal Oropeza LDL CALC NORMAL SEE BELOW Normal [facility] Comment on above: Result Comment: <100 mg/dl OPTIMAL 100 - 129 mg/dl NEAR OR ABOVE OPTIMAL 130 - 159 mg/dl BORDERLINE HIGH 160 - 189 mg/dl HIGH >190 mg/dl VERY HIGH Performed By: #### T KADIE, LIPID, CMP #### [facility] [address] [address] [address] Mychal Oropeza Triglyceride [Mass/Vol] 188 mg/dL Critically high <=150 [facility] Comment on above: Performed By: #### T KADIE, LIPID, CMP #### [facility] [address] [address] [address] Mychal Oropeza VLDL CALC 37.6 mg/dL Normal [facility] Comment on above: Performed By: #### T KADEI, LIPID, CMP #### [facility] [address] [place] [address] Dr. Mychal Oropeza PROF 14(COMP METB)on 022 Albumin [Mass/Vol] 3.9 g/dL Normal 3.4-5.0 [facility] Comment on above: Performed By: #### T KADIE, LIPID, CMP #### [facility] [address] [address] [address] Mychal Oropeza Albumin/Globulin [Mass ratio] 1.1 {ratio} Normal [facility] Comment on above: Performed By: #### T KADIE, LIPID, CMP #### [facility] [address] [address] [address] Mychal Oropeza ALP [Catalytic activity/Vol] 77 U/L Normal 46-116 [facility] Comment on above: Performed By: #### T KADIE, LIPID, CMP #### [facility] [address] [address] [address] Mychal Oropeza ALT [Catalytic activity/Vol] 56 U/L Normal 16-63 [facility] Comment on above: Performed By: #### T KADIE, LIPID, CMP #### [facility] [address] [address] [address] Mychal Oropeza Anion gap [Moles/Vol] 8.6 mmol/L Normal [facility] Comment on above: Performed By: #### T SH, LIPID, CMP #### [facility] [address] [place] [address] Dr. Mychal Oropeza AST [Catalytic activity/Vol] 30 U/L Normal 15-37 [facility] Comment on above: Performed By: #### T SH, LIPID, CMP #### [facility] [address] [place] [address] Dr. Mychal Oropeza Bilirubin [Mass/Vol] 0.6 mg/dL Normal 0.2-1.0 [facility] Comment on above: Performed By: #### T SH, LIPID, CMP #### [facility] [address] [place] [address] Dr. Mychal Oropeza Calcium [Mass/Vol] 9.2 mg/dL Normal 8.5-10.1 [facility] Comment on above: Performed By: #### T SH, LIPID, CMP #### [facility] [address] [place] [address] Dr. Mychal Oropeza Chloride [Moles/Vol] 100 mmol/L Normal 98-107 [facility] Comment on above: Performed By: #### T SH, LIPID, CMP #### [facility] [address] [place] [address] Dr. Mychal Oropeza CO2 [Moles/Vol] 30.0 mmol/L Normal 21.0-32.0 [facility] Comment on above: Performed By: #### T SH, LIPID, CMP #### [facility] [address] [place] [address] Dr. Mychal Oropeza Creatinine [Mass/Vol] 1.37 mg/dL Critically high 0.70-1.30 [facility] Comment on above: Performed By: #### T SH, LIPID, CMP #### [facility] [address] [place] [address] Dr. Mychal Oropeza EGFR-AF RWANDAN >60 Normal >=60 [facility] Comment on above: Performed By: #### T SH, LIPID, CMP #### [facility] [address] [place] [address] Dr. Mychal Oropeza EGFR-NON AF RWANDAN 55 mL/min/1.73m2 Critically low >=60 [facility] Comment on above: Performed By: #### T KADIE, LIPID, CMP #### [facility] [address] [address] [address] Mychal Oropeza Globulin (S) [Mass/Vol] 3.7 g/dL Normal [facility] Comment on above: Performed By: #### T KADIE, LIPID, CMP #### [facility] [address] [address] [address] Mychal Oropeza Glucose [Mass/Vol] 111 mg/dL Critically high 74-106 [facility] Comment on above: Performed By: #### T KADIE, LIPID, CMP #### [facility] [address] [place] [address] Dr. Mychal Oropeza Potassium [Moles/Vol] 3.6 mmol/L Normal 3.5-5.1 [facility] Comment on above: Performed By: #### T KADIE, LIPID, CMP #### [facility] [address] [place] [address] Dr. Mychal Oropeza Protein [Mass/Vol] 7.6 g/dL Normal 6.4-8.2 [facility] Comment on above: Performed By: #### T KADIE, LIPID, CMP #### [facility] [address] [place] [address] Dr. Mychal Oropeza Sodium [Moles/Vol] 135 mmol/L Critically low 136-145 [facility] Comment on above: Performed By: #### T KADIE, LIPID, CMP #### [facility] [address] [place] [address] Dr. Mychal Oropeza Urea nitrogen [Mass/Vol] 14.0 mg/dL Normal 7.0-18.0 [facility] Comment on above: Performed By: #### T KADIE, LIPID, CMP #### [facility] [address] [address] [address] Mychal Oropeza Urea nitrogen/Creatinine [Mass ratio] 10.2 mg/mg Normal [facility] Comment on above: Performed By: #### T KADIE, LIPID, CMP #### [facility] [address] [place], [place] [address] Dr. Mychal Oropeza TSHon 05-27-2022 TSH 2.907 uIU/mL Normal 0.358-3.740 [facility] Comment on above: Performed By: #### T SH, LIPID, CMP #### [facility] [address] [place], [place] [address] Dr. Mychal Oropeza TESTOSTERONE, TOTALon 2021 Testosterone [Mass/Vol] 324 ng/dL Normal 264-916 [facility] Comment on above: Result Comment: Adul t male reference interval is based on a population of healthy nonobese males (BMI <30) between 19 and 39 years old. bouchra Quinones.al. JCEM 2017,102;3411-6091. PMID: [id number]. Performed By: #### T ESTTOT #### [facility] [address] [address] [address] Mychal Oropeza XR SPINE CERVICAL WITH [...] fair flexion. No instability is noted. Normal [facility] XR SPINE LUMBAR W BENDINGon 02-10-2021 XR [...] good range of motion without instability. Normal [facility] XR SPINE LUMBAR W BENDINGOrd ered By: Maik Barbosa on 02-10-2021 IMPRESSION: Lumbar s pine visually is fairly well preserved. There is no evidence of fracture, listhesis, significant disc space narrowing or major degenerative changes. There is a very good range of motion without instability. [employer] EXAM: XR SPINE LUMBA R W BENDING [...] motion. There is no listhesis or instability. [facility] - 02/10/2021 4:52 PM EDT [...] very good range of motion without instability. [facility] Vital Signs Date Time Vital Sign Value Performing Clinician Facility 08-31-2023 15:30-0500 Body height 170.18 cm Kell Bowling Other [employer] Other 08-31-2023 15:30-0500 Body mass index (BMI) [Ratio] 33.04 kg/m2 Kell Bowling Other [employer] [employer] Other 08-31-2023 15:30-0500 Body weight 95.71 kg Kell Bowling Other [employer] Other 08-31-2023 15:30-0500 Diastolic blood pressure 77 mm[Hg] Kell Bowling Other [employer] Other 08-31-2023 15:30-0500 Systolic blood pressure 119 mm[Hg] Kell Bowling Other [employer] Other 08-01-2023 08:30-0500 Body height 170.18 cm Kell Bowling Other [employer] Other 08-01-2023 08:30-0500 Body mass index (BMI) [Ratio] 35.14 kg/m2 Kell Bowling Other [employer] Other 08-01-2023 08:30-0500 Body weight 101.79 kg Kell Bowling Other [employer] Other 08-01-2023 08:30-0500 Diastolic blood pressure 82 mm[Hg] Kell Bowling Other [employer] Other 08-01-2023 08:30-0500 Systolic blood pressure 118 mm[Hg] Kell Bowling Other [employer] Other 04-16-2021 12:05-0400 Diastolic blood pressure 97 mm[Hg] Maik Barbosa MD Work Phone: [facility] 04-16-2021 12:05-0400 Heart rate 54 /min Maik Barbosa MD Work Phone: [facility] 04-16-2021 12:05-0400 Respiratory rate 16 /min Miak Barbosa MD Work Phone: [facility] 04-16-2021 12:05-0400 SaO2% (BldA) [Mass fraction] 95 % Maik Barbosa MD Work Phone: [facility] 04-16-2021 12:05-0400 Systolic blood pressure 142 mm[Hg] Maik Barbosa MD Work Phone: [facility] 03-17-2021 08:04-0400 Body height 170.2 cm Maik Barbosa MD Work Phone: [facility] 03-17-2021 08:04-0400 Body mass index (BMI) [Ratio] 34.61 kg/m2 Maik Barbosa MD Work Phone: [facility] 03-17-2021 08:04-0400 Body weight 100.25 kg Maik Barbosa MD Work Phone: [facility] 03-17-2021 08:04-0400 Diastolic blood pressure 93 mm[Hg] Maik Barbosa MD Work Phone: [facility] 03-17-2021 08:04-0400 Heart rate 74 /min Maik Barbosa MD Work Phone: [facility] 03-17-2021 08:04-0400 Respiratory rate 20 /min Maik Barbosa MD Work Phone: [facility] 03-17-2021 08:04-0400 SaO2% (BldA) [Mass fraction] 96 % Maik Barbosa MD Work Phone: [facility] 03-17-2021 08:04-0400 Systolic blood pressure 132 mm[Hg] Maik Barbosa MD Work Phone: [facility] 02-24-2021 12:02-0400 Diastolic blood pressure 100 mm[Hg] Maik Barbosa MD Work Phone: [facility] 02-24-2021 12:02-0400 Heart rate 55 /min Maik Barbosa MD Work Phone: [facility] 02-24-2021 12:02-0400 Respiratory rate 18 /min Maik Barbosa MD Work Phone: [facility] 02-24-2021 12:02-0400 SaO2% (BldA) [Mass fraction] 95 % Maik Barbosa MD Work Phone: [facility] 02-24-2021 12:02-0400 Systolic blood pressure 141 mm[Hg] Maik Barbosa MD Work Phone: [facility] 02-10-2021 11:46-0400 Body height 170.2 cm Maik Barbosa MD Work Phone: [facility] 02-10-2021 11:46-0400 Body mass index (BMI) [Ratio] 34.61 kg/m2 Maik Barbosa MD Work Phone: [facility] 02-10-2021 11:46-0400 Body weight 100.25 kg Maik Barbosa MD Work Phone: [facility] 02-10-2021 11:46-0400 Diastolic blood pressure 81 mm[Hg] Maik Barbosa MD Work Phone: [facility] 02-10-2021 11:46-0400 Heart rate 64 /min Maik Barbosa MD Work Phone: [facility] 02-10-2021 11:46-0400 Respiratory rate 18 /min Maik Barbosa MD Work Phone: [facility] 02-10-2021 11:46-0400 SaO2% (BldA) [Mass fraction] 99 % Maik Barbosa MD Work Phone: [facility] 02-10-2021 11:46-0400 Systolic blood pressure 121 mm[Hg] Maik Barbosa MD Work Phone: [facility] Encounters Encounter Date Encounter Type Care Provider Facility Start: 07-31-2024 ambulatory Chata Page Facility:[facility] Start: 08-31-2023 End: 08-31-2023 ambulatory Kell Bowling Other [employer] Other Start: 08-31-2023 Office outpatient vi sit 15 minutes Kell Bowling [facility] Start: 08-01-2023 End: 08-01-2023 ambulatory Kell Bowling Other [employer] Other Start: 08-01-2023 Encounter for genera l adult medical examination without abnormal findings Kell Bowling [facility] Start: 08-01-2023 Periodic preventive med est patient 40-64yrs Kell Bowling [facility] Start: 07-26-2023 End: 07-27-2023 ambulatory Chata [...] examination without abnormal findings DR KELL BOWLING [facility] Start: 05-27-2022 End: 05-28-[address] KELL BOWLING Facility:[facility] Start: 05-27-2022 End: 05-28-2022 Encounter for general adult medical examination without abnormal findings DR KELL BOWLING Facility:[facility] Start: 01-19-2022 End: 01-20-[address] KELL BOWLING Facility:[facility] Start: 04-16-2021 End: 04-16-2021 Patient encounter procedure Maik Barbosa MD Work Phone: [facility] Comment on above: Lumbar spondylosis ( Primary Dx); Chronic pain syndrome; Myofascial pain Start: 03-17-2021 End: 03-17-2021 Office outpatient visit 15 minutes Maik Barbosa MD Work Phone: [facility] Comment on above: Lumbar spondylosis ( Primary Dx); Lumbar radiculopathy; Spinal stenosis of cervical region; Chronic pain syndrome; Myofascial pain Start: 02-24-2021 End: 02-24-2021 Clinical Support Encounter Maik Barbosa MD Work Phone: [facility] Comment on above: Myofascial pain (Ara reji Dx) Start: 02-10-2021 End: 02-10-2021 Subsequent hospital visit by physician Maik Barbosa MD Work Phone: [facility] Comment on above: Arrived Start: 02-10-2021 End: 02-10-2021 Office outpatient new 45 minutes Maik Barbosa MD Work Phone: [facility] Comment on above: Myofascial pain (Ara reji Dx); Arthropathy of cervical facet joint; Spondylosis of lumbar region without myelopathy or radiculopathy; Chronic pain syndrome; Compliance with medication regimen Procedures Date Procedure Procedure Detail Performing Clinician Start: 05-27-[address] KELL BOWLING Comment on above: Performed By: #### P [facility] #### [facility] [address] [place] [address] Dr. Mychal Oropeza Start: 02-10-2021 Radex spine lumbscrl compl w/bending views min 6 Miak Barbosa MD Work Phone: Plan of Treatment Date Care Activity Detail Author Start: 05-21-2021 End: 05-21-2021 Patient encounter procedure 05/21/2021 Office Visit Anesthesiology Pain Mgt Maik Barbosa MD [address] [place] [address] [facility] Start: 05-12-2021 Influenza vaccination A [facility] Start: 05-07-2021 End: 05-07-2021 Patient encounter procedure 05/07/2021 Office Visit Anesthesiology Pain Maik Carbajal MD [address] [place] [address] [facility] Start: 05-03-2021 End: 05-03-2021 Patient encounter procedure 05/03/2021 Office Visit Anesthesiology Pain Mgt Maik Barbosa MD [address] [place] [address] [facility] Start: 04-27-2021 End: 04-27-2021 Patient encounter procedure 04/27/2021 Office Visit Anesthesiology Pain Mgt Maik Barbosa MD [address] [place] [address] [facility] Start: 03-17-2021 End: 03-17-2021 Patient encounter procedure 03/17/2021 Office Visit Anesthesiology Pain Mgt Maik Barbosa MD [address] [place] [address] [phone] [facility] Start: 02-24-2021 End: 02-24-2021 Patient encounter procedure 02/24/2021 Office Visit Anesthesiology Pain Mgt Maik Barbosa MD [address] [place] [address] [facility] Start: 02-10-2021 End: 02-11-2021 DRUG SCREEN MED COMPLIANCE I DRUG SCREEN MED COMPLIANCE I Lab Routine Compliance with medication regimen Expected: 02/10/2021, Expires: 02/11/2021 [facility] Comment on above: Expected: 02/10/2021 , Expires: 02/11/2021 Start: 02-08-2020 Prostate specific antigen measurement PROSTATE CANCER SCREENING DISCUSSION [facility] Start: 02-08-2020 Zoster vaccine hzv l wilmar for subcutaneous use ZOSTER (SHINGLES) VACCINE (1 of 2) [facility] Start: 2015 Colonoscopy COLORECTAL CAN CER SCREENING DISCUSSION [facility] Start: 2010 Fasting lipid profile LIPID SCREENIN G [facility] Start: 1989 Third diphtheria, tetanus and acellular pertussis (DTaP) vaccination TDAP (ADULT) [facility] Start: 02-08-1988 Tetanus vaccination TETANUS [facility] Start: 1985 HIV screening HIV SCREENING DISCUSSI ON [facility] Start: 1982 COVID-19 VACCINE (1) COVID-19 VACCIN E (1) [facility] Start: 1970 Hepatitis C antibody , confirmatory test HEPATITIS C VIRUS SCREENING [facility] Payers Date Payer Category Payer Unknown [id number] 2019 Unknown [id number] 2018 Unknown [id number]. [id number] 1970 Unknown [id number] 2.16.84 [id number] 1970 Unknown [id number] .16.84 [id number] 1970 Unknown [id number] .16.84 [id number] 1970 Unknown [id number] 2.16.84 [id number] 1970 Unknown [id number] 2.16.84 [id number] 1970 Unknown [id number] 2.16.84 [id number] 1970 Unknown [id number] 2.16.84 [id number] 1970 Unknown [id number] 2.16.84 [id number] 1970 Unknown [id number] 2.16.8 [id number] 1970 Unknown [id number] 2.16.8 [id number] 1970 Unknown [id number] 2.16.8 [id number] 1959 Self-pay [id number] Unknown [id number] 2.16.84 [id number] Unknown [id number] Social History Date Type Detail Facility Start: 02-10-2021 End: 03-17-2021 Tobacco smoking status NHIS Never smoker [facility] Start: 02-10-2021 End: 03-17-2021 Tobacco use and exposure Never used [facility] Start: 02-10-2021 End: 03-17-2021 Alcohol intake Current drinker of alcohol (finding) [facility] Start: 02-10-2021 End: 03-17-2021 Alcohol intake [facility] Start: 02-10-2021 Alcohol Comment 5 beers/week [facility] Start: 1970 Sex Assigned At Not on file A [facility] Sex Assigned At Sex Assigned At Bir th [employer] Other Clinical Notes 02-10-2021 to 08-31-2023 Note [...] index [BMI] 33.0-33.9, adult (ICD-10 - Z68.33) [employer] Other 11-21-2023 Evaluation note* Encounter Date Diagnosis [...] (ICD-10 - M54.50) Pt requests referral to [place] [facility]. He hopes to lessen his use of NSAIDs to improve his renal function. Jul, Other chronic pain (ICD-10 - G89.29) Jul, JOSÉ (obstructive sleep apnea) (ICD-10 - G47.33) Form completed for [facility]. Jul, Class 2 obesity [...] to ER and Follow-up with me immediately. [employer] Other 08-06-2021 History and physical note* Maik [...] bilateral lumbar facet block documented in this [facility]08-06-2021 History of Present illness Narrative* Humera Genao RN - 04/16/2021 11:30 AM EDT SCRUB - Shellie Alaniz RN RT - RT Ilia [employer] SUPERVISOR - N/A PURIFICATION DIRECTOR - Aurelio Genao RN Site cleansed with [...] and earlier as needed. [id number] Instructions* Patient Instructions* Geovanna Degroot RN - 04/16/2021 11:30 AM EDT [employer] [facility] WHAT TO EXPECT AFTER A PROCEDURE Follow up appointment: Call the office ([phone]) if you have any questions or develop [...] to call us at . Thank you, [facility] History of Present illness Narrative* Maik Barbosa [...] tried OTC tylenol, celebrex with somemild relief. [place] has helped in the past, but would [...] Denies dysuria or frequency documented in this [facility]07-07-2021 Instructions* Patient Instructions* Geovanna Degroot RN [...] when current is passed using the radiofrequency [employer]. This numbs the nerves. What should [...] complications are extremely rare. documented in this [facility]06-16-2021 History and physical note* Maik Barbosa [...] trapezius, and lumbar paraspinal [facility] History of Present illness Narrative* Madina Summers RN - 02/24/2021 11:15 AM EDT PHYSICIAN - SCRUB - Kitty Martinez RN PURIFICATION DIRECTOR - [facility] Site cleansed with chloroprep. Procedure: cervical paraspinal [...] Denies dysuria or frequency documented in this [facility]-02[facility] History of Present illness Narrative* Maik [...] Social Gatherings with Friends and Family: Attends [employer] Services: Active Member of Clubs or Organizations: [...] tried OTC tylenol, celebrex with somemild relief. [place] has helped in the past, but would [...] within the last year. documented in this [facility]06-02-2021 Instructions* Patient Instructions* Geovanna Degroot RN [...] read the attached handout from the National [place] of Health with guidelines and recommendations for [...] complications are extremely rare. documented [facility]* Diagnosis Myofascial pain- Primary Mylagia and myositis, unspecified Arthropathy of cervical facet joint Cervical spondylosis without myelopathy Spondylosis of lumbar region without myelopathy or radiculopathy Lumbosacral spondylosis without myelopathy Chronic pain syndrome Compliance with medication regimen [facility] Diagnosis Spondylosis of lumbar region without myelopathy or radiculopathy Lumbosacral spondylosis without myelopathy [facility] Diagnosis Myofascial pain- Primary Mylagia and myositis, unspecified [facility] Diagnosis Lumbar spondylosis- Primary Lumbosacral spondylosis without myelopathy Lumbar radiculopathy Thoracic or lumbosacral neuritis or radiculitis, unspecified Spinal stenosis of cervical region Spinal stenosis in cervical region Chronic pain syndrome Myofascial pain Mylagia and myositis, unspecified [facility] Diagnosis Lumbar spondylosis- Primary Lumbosacral spondylosis without myelopathy Chronic pain syndrome Myofascial pain Mylagia and myositis, unspecified [facility] N[facility]ative - Reported* Type Description Date Medical History Elevated cholesterol with elevat ed triglycerides Medical History Low serum testosterone level Medical History Lumbar pain Medical History Hypertension Medical History Diverticulosis Surgical History R shoulder arthroscopy Surgical History FB R wrist Surgical History Umbilical hernia repair 07/12/20 23 Surgical History Colonoscopy 06/25/2023 Hospitalization History SEE SURGICAL HX [employer] Other Reason for Referral Status Reason Specialty Diagnoses / Procedures Referred By Contact Referred To Contact Auth Not Needed Diagnoses Myofascial pain Chronic pain syndrome Maik Barbosa MD [address] [place] [address] Scheduling Instructions Please PA and schedule: neck and back TPI (pt will need a [address] Barbosa) Reason *FU 08/08 chronic lumbar pain, would benefit from less NSAID use. Diagnosis 1 Low back pain, unspe cified (M54.50) Referral Organization [facility] xochitl Referring Provider First Name Kell Referring Provider Last Name Tawnya Referring Provider Specialty Family Medi cine Referred Organization [facility] Referred Address [address], [place],[address] Referred Provider Specialty Pain Medicin e Referral Priority Routine General Notes Es Cooper 05:14:13 PM >received today, attachments made, notes locked, referral faxed Clinical Notes f: [id number] Summary Purpose Family History No Family History [...] Chronic pain syndrome Maik Barbosa MD [address] [place] [address] Reason Comments Pain Specialty Diagnoses / Procedures Referred By Contac t Referred To Contact Diagnoses Lumbar facet arthropathy Maik Barbosa MD [address] [place] [address] Referral ID Status Reason Start Date Expiration Date Visits Re quested Visits Authorized [id number] Closed 04/14/2021 05/09/2022 1 1 (unrecognized sect ion and content) No Status Records FoundNo Status Records FoundNo Status Records Found INFORMATION SOURCE (unrecogn ized section and content) DATE CREATED AUTHOR 05/10/2021 [facility] DATE CREATED AUTHOR AUTHOR'S ORGANIZ ATION 01/13/2023 [facility] DATE CREATED AUTHOR AUTHOR'S ORGANIZ ATION 07/27/2023 [facility] Teams (unrecognized sec tion and content) Web Marketing Assistant Relationship Specialty Start Date End Date Kell Bowling MD [address] [place] [address] PCP - General Family Medicine 02/10/21 FOR [...] BE BASED ON THE PRIMARY CLINICAL RECORDS. [employer] [facility]. provides no warranty or guarantee of the accuracy or completeness of information in this document.
[2023-09-19 11:41] VITALS: BP 121/76; PULSE 71; RESP 16; TEMP 36.8; O2SAT 100
[2023-09-19] MEDS: BUPIVACAINE HCL 0.25% PF 25 MG/10 ML VIAL 8 ML INJ (12:22)
[2023-09-19 12:34] VITALS: BP 126/80; BP 127/93; PULSE 71; PULSE 79; RESP 18; O2SAT 91; O2SAT 97
--- NOTE | 2023-09-19 12:41 | W.PM.PROCNOT ---
Date of procedure: 09/19/23 Pre-op diagnosis: Lumbar Spondylosis Post-op diagnosis: same as pre-op Procedure: Bilateral Lumbar 4/5, 5/Sacral 1 medial branch block Under fluoroscopic guidance Solution injected: 2millilitersMarcaine 0.25% Anesthesia :none Immediate complications none Time out process compliant After informed consent obtained from the patient placed in the [employer] proposition . area was prepped and draped in a sterile fashion using Cloraprep .25 gauge spinal needle inserted over each of the above mentioned target areas . [place] were directed towards the target under fluoroscopic guidance . after encountering each of the targets , no indication of intravascular intraneuronal or intrathecal needle tip placement. Then 0 .5 to 1 Milliliter was injected at each level. [place] removed postoperatively. patient transferred to recovery in stable condition to be discharged home after meeting criteria Anesthesia: Local Surgeon: Adalberto James Condition: stable
== END 2023-09-19 12:41 | disposition home or self-care (01) ==
LOC: SURGOUT 10:42
PROVIDERS: PCP Family Medicine; Visit Provider Anesthesiology Pain Medicine
DX: M47.816 Spondylosis without myelopathy or radiculopathy, lumbar region (principal)
CPT/HCPCS: 64493; 64494; J0665

== ENCOUNTER 2023-09-28 14:52 | Outpatient (OUT) | payer BC, SELFPAY ==
--- OUTSIDE RECORDS SUMMARY | 2023-09-28 15:04 | XMS_ITS | CCD ---
Author Name Unknown Address [address] [place] [address] Organization [facility] Care Team Providers Care Street Roller Engineer Name Role Phone Kell Bowling MD Primary Care Provider [phone] TAWNYA, DR KELL Romero Primary Care Unavailable [...] physicia Propensity to adverse reactions 9 Comment:Done [facility] Other (2 sources) Allergies Reconciled Propensity to adverse reactions Unknown [facility] Other Medications Current Medications Medication Drug Class(es) Dates Sig (Normalized) Sig (Original) Amoxicillin (1 source) Penicillin-class Antibacterial Amoxicillin Active Atenolol / Chlorthalidone (7 sources) Thiazide-like Diuretic, beta-Adrenergic Daron Start: 08-22-2022 take 1 tablet by mouth once daily Atenolol-Chlortha lidone 50-25mg atenoloL-chlortha lidone 50-25mg, 1 (one) Tablet daily # 90, 08/22/2022, Ref. x1. Active oral daily for 90 *Pick strength-form from [employer] for eRX* Aug, Active Start: 02-05-2021 atenolol-chlor thalidone 50-25 MG tablet cyclobenzaprine hydrochloride 10 mg oral tablet (7 sources) Muscle Relaxant Start: 05-31-2022 take 1 tablet by mouth three times daily as needed cyclobenzaprine 10mg cyclobenzaprine 10mg, 1 (one) Tablet three times daily, as needed # 30, 05/31/2022, No Refill. Active oral three times daily, as needed for 0 *Reorder from [employer] for eRx and Interaction Alerts* May, Active [...] Refill. Active transdermal for 0 *Reorder from [employer] for eRx and Interaction Alerts* May, Active [...] FERMIN, Chata Inman Where: [facility] Lab Reportson 07-26-2023 Lab Reports [id number]#1.00TIFF Normal [facility] Lab Reports [id number]#1.00TI FF Normal [facility] Medication Consenton 023 Medication Consent [id number]#1.00TI FF Normal [facility] Patient Educationon 07-26-20 23 Patient Education Urology [...] Follow these instructions at home: ? Take oojn-gqx-bxazccr and prescription medicines only as told by [...] from the medicine (more content not included)... [facility] Reminderson 07-26-2023 Reminders - From: Meme Haley To: EU - Recalls Lue; Sent: 07/26/2023 11:33:52 EST Show up: 05/26/2024 12:33:00 EDT Subject: Labs Due Date/Time: 07/26/2024 11:33:00 EST Pt will need T Level, HCT and PSA prior to appt. PSA is done by PCP. [facility] Screenson 07-26-2023 Screens [id number]#1.00TI FF [facility] Screens [id number]#1.00TI FF [facility] Urology Office/Clinic Noteon 07-26-2023 Urology Office/Clinic Note Chief Complaint 6m Testosterone Level HPI Staff 6m Testosterone Level DX: Hypogonadism, Impotence & BPH *Cialis 10mg PRN (occasionally uses 20mg) & Androgel 2 pumps qd PSA 07/05/23- 0.78 CBC/CMP 07/05/23 *BUN 21.0 & Crea 1.48 eGFR 50 *Hgb 12.3 & Hct 38.9 A1C 07/05/23- 5.8 Testosterone 07/20/23- 366 (594-571) Pt has no concerns at this time. [...] mRNA BNT-162b2 vax (more content not included)... [facility] Comment on above: Result Comment: Elec tronically Signed By: Chata Page MD\.br\Date and Time Signed: 07/26/23 08:57 EST\.br\Electronically Co-Signed By: Meme Haley\.br\Date and Time Co-Signed: 07/26/23 08:37 EST Lab Reportson 07-24-2023 Lab Reports [id number]#1.00TIF F [facility] Ambulatory Visit Summaryon 0 01-11-2023 Ambulatory Visit Summary MANUEL ROSAS :1970 Visit Date:01/11/2023 Ambulatory Visit Instructions Your Diagnosis Impotence Male hypogonadism BPH (benign prostatic hyperplasia) Tests Performed Urnls Dip Stick Auto w/o Microscopy POC [id number] Your Care Team Attending Physician - Chata [...] Chata Page MD Where: [facility] Patient Educationon 01-12-20 Patient Education [...] provider. Document Revised: 08/03/2020 Document Reviewed: 08/03/2020 [employer] Patient Education ? 2022 [employer]. Normal [facility] Screenson 01-11-2023 Screens [id number]#1.00CD :[address] [facility] Screens [id number]#1.00CD :[address] [facility] Urology Office/Clinic Noteon 01-11-2023 Urology Office/Clinic Note Chief Complaint 6 month follow up HPI Staff 6 month follow up w/testosterone level 487 done 01/06/23, previous testosterone level 410 done 06/20/22. Previous DX: BPH, impotence, male hypogonadism. Pt is currently taking Cialis 10mg PRN, and AndroGel 2 pumps daily-refill on both medications sent to [facility] in [place]. IPSS is , MAKI 22. Dysuria: denies [...] Androgel 2 pumps daily. Refill sent to 2,10E+07. Good range and sx improvement, prior CBC [...] Urine Dips (more content not included)... Normal [facility] Comment on above: Result Comment: Elec tronically Signed By: Chata Page MD\.br\Date and Time Signed: 01/11/23 19:10 EDT\.br\Electronically Co-Signed By: Ericka Mcconnell.br\Date and Time Co-Signed: 01/11/23 10:32 EDT Lab Reportson 01-10-2023 Lab Reports [id number]#1.00CD: [address] [facility] TESTOSTERONE, TOTALon 2022 Testosterone [Mass/Vol] 487 ng/dL Normal 264-916 [facility] Comment on above: Result Comment: Adul t male reference interval is based on a population of healthy nonobese males (BMI <30) between 19 and 39 years old. Joni et.al. JCEM 2017,102;7856-6338. PMID: 10738286. Performed By: #### T ESTTOT #### [facility] [address] [place] [address] Dr. Mychal Oropeza Pre-Certification Formon Pre-Certification Form [id number]#1.00CD: [address] [facility] Pre-Certification Formon Pre-Certification Form [id number]#1.00CD: [address] [facility] Pre-Certification Formon Pre-Certification Form [id number]#1.00CD: [address] [facility] US SINGLE QUAD RT UPPERon US [...] by: CHRISTOFER SCHAEFFER Date: 2022-08-25 07:07 Normal [facility] Historical Records Officeon 08-19-2022 Historical Records Office [id number]#1.00CD: [address] [facility] Pre-Certification Formon Pre-Certification Form [id number]#1.00CD: [address] [facility] Patient Letter FTMCon 2021 Patient Letter [facility] (Inserted Image. Nag ble to display) August 18, 2022 ARM[address]UNDO [address] [place] [address] RAYMUNDO ROSASEL 1970 Dear Whomever it may [...] Sincerely, Dr. Chata Page MD [facility] [address] [place] [address]. [place] [address] [facility] TESTOSTERONE, TOTALon 2021 Testosterone [Mass/Vol] 410 ng/dL Normal 264-916 [facility] Comment on above: Result Comment: Adul t male reference interval is based on a population of healthy nonobese males (BMI <30) between 19 and 39 years old. Joni, et.al. JCEM 2017,102;1638-8636. PMID: 02431856. Performed By: #### T ESTTOT #### [facility] [address] [address] [address] Mychal Oropeza CBC AUTO DIFFon 05-27-2022 BASO # 0.1 103/ul Normal 0.0-0.1 [facility] Comment on above: Performed By: #### C BC #### [facility] [address] [place] [address] Dr. Mychal Oropeza Basophils/100 WBC (Bld) 0.9 % Normal 0.2-2.0 [facility] Comment on above: Performed By: #### C BC #### [facility] [address] [place] [address] Dr. Mychal Oropeza EO # 0.7 103/ul Normal 0.0-0.7 [facility] Comment on above: Performed By: #### C BC #### [facility] [address] [place] [address] Dr. Mychal Oropeza Eosinophils/100 WBC (Bld) 6.7 % Normal 0.9-7.0 [facility] Comment on above: Performed By: #### C BC #### [facility] [address] [place] [address] Dr. Mychal Oropeza Erythrocyte distribution width (RBC) [Ratio] 12.8 % Normal 11.0-15.0 [facility] Comment on above: Performed By: #### C BC #### [facility] [address] [place] [address] Dr. Mychal Oropeza Hematocrit (Bld) [Volume fraction] 46.9 % Normal 42.0-54.0 [facility] Comment on above: Performed By: #### C BC #### [facility] [address] [place] [address] Dr. Mychal Oropeza Hemoglobin (Bld) [Mass/Vol] 16.2 g/dL Normal 14.0-18.0 [facility] Comment on above: Performed By: #### C BC #### [facility] [address] [place] [address] Dr. Mychal Oropeza IG # 0.04 10e3/ul Critically high 0.00-0.03 [facility] Comment on above: Performed By: #### C BC #### [facility] [address] [place] [address] Dr. Mychal Oropeza IG % 0.4 % Normal 0.0-0.5 [facility] Comment on above: Performed By: #### C BC #### [facility] [address] [address] [address] Mychal Oropeza LYMPH # 4.1 103/ul Critically high 1.2-3.8 [facility] Comment on above: Performed By: #### C BC #### [facility] [address] [address] [address] Mychal Oropeza Lymphocytes/100 WBC (Bld) 37.7 % Normal 20.5-60.0 [facility] Comment on above: Performed By: #### C BC #### [facility] [address] [place] [address] Dr. Mychal Oropeza MANUAL DIFF REQ NO Normal [facility] Comment on above: Performed By: #### C BC #### [facility] [address] [place] [address] Dr. Mychal Oropeza MCH (RBC) [Entitic mass] 30.7 pg Normal 25.9-34.0 [facility] Comment on above: Performed By: #### C BC #### [facility] [address] [place] [address] Dr. Mychal Oropeza MCHC (RBC) [Mass/Vol] 34.5 g/dL Normal 29.9-35.2 [facility] Comment on above: Performed By: #### C BC #### [facility] [address] [place] [address] Dr. Mychal Oropeza MCV (RBC) [Entitic vol] 88.8 fL Normal 80.0-94.0 [facility] Comment on above: Performed By: #### C BC #### [facility] [address] [place] [address] Dr. Mychal Oropeza MONO # 0.9 103/ul Critically high 0.3-0.8 [facility] Comment on above: Performed By: #### C BC #### [facility] [address] [place] [address] Dr. Mychal Oropeza Monocytes/100 WBC (Bld) 8.1 % Normal 1.7-12.0 [facility] Comment on above: Performed By: #### C BC #### [facility] [address] [address] [address] Mychal Oropeza NEUT # 5.1 103/ul Normal 1.4-6.5 [facility] Comment on above: Performed By: #### C BC #### [facility] [address] [address] [address] Mychal Oropeza Neutrophils/100 WBC (Bld) 46.2 % Normal 43.0-75.0 [facility] Comment on above: Performed By: #### C BC #### [facility] [address] [address] [address] Mychal Oropeza Platelet mean volume (Bld) [Entitic vol] 9.7 fL Normal 9.5-13.5 [facility] Comment on above: Performed By: #### C BC #### [facility] [address] [address] [address] Mychal Oropeza PLT 308 103/ul Normal 150-450 [facility] Comment on above: Performed By: #### C BC #### [facility] [address] [address] [address] Mychal Oropeza RBC 5.28 106/ul Normal 4.70-6.10 [facility] Comment on above: Performed By: #### C BC #### [facility] [address] [address] [address] Mychal Oropeza WBC 10.9 103/ul Normal 4.0-11.0 [facility] Comment on above: Performed By: #### C BC #### [facility] [address] [address] [address] Mychal Oropeza GLYCOHEMOGLOBIN A1Con 2021 ADA RECOMMENDATION SEE BELOW Normal [facility] Comment on above: Result Comment: ADA RECOMMENDED LIMIT 4.0 - 6.0 ADA THERAPEUTIC TARGET < 7.0 ACTION SUGGESTED > 7.0 Performed By: #### A 1C #### [facility] [address] [address] [address] Mychal Oropeza Glucose [Mass/Vol] 108 mg/dL Normal [facility] Comment on above: Performed By: #### A 1C #### [facility] [address] [address] [address] Mychal Oropeza HbA1c (Bld) [Mass fraction] 5.4 % Normal 4.5-6.2 [facility] Comment on above: Performed By: #### A 1C #### [facility] [address] [address] [address] Mychal Oropeza LIPID PROFILEon 05-27-2022 CHOL-HDL RATIO NORM SEE BELOW Normal [facility] Comment on above: Result Comment: 3.3 - 4.4 LOW RISK 4.4 - 7.1 AVERAGE RISK 7.1 - 11.0 MODERATE RISK >11.0 HIGH RISK Performed By: #### T SH, LIPID, CMP #### [facility] [address] [address] [address] Mychal Oropeza Cholesterol [Mass/Vol] 207 mg/dL Critically high <=200 [facility] Comment on above: Performed By: #### T SH, LIPID, CMP #### [facility] [address] [address] [address] Mychal Oropeza Cholesterol in HDL [Mass/Vol] 47 mg/dL Normal 40-60 [facility] Comment on above: Performed By: #### T SH, LIPID, CMP #### [facility] [address] [address] [address] Mychal Oropeza Cholesterol in LDL [Mass/Vol] 122.4 mg/dL Normal [facility] Comment on above: Performed By: #### T SH, LIPID, CMP #### [facility] [address] [address] [address] Mychal Oropeza Cholesterol.total/Ch olesterol in HDL [Mass ratio] 4.4 {ratio} Normal [facility] Comment on above: Performed By: #### T SH, LIPID, CMP #### [facility] [address] [address] [address] Mychal Oropeza HDL NORMAL > or = 60 mg/dl - LO W CARDIOVASCULAR RISK <40 mg/dl - HIGH CARDIOVASCULAR RISK Normal [facility] Comment on above: Performed By: #### T SH, LIPID, CMP #### [facility] [address] [address] [address] Mychal Oropeza LDL CALC NORMAL SEE BELOW Normal [facility] Comment on above: Result Comment: <100 mg/dl OPTIMAL 100 - 129 mg/dl NEAR OR ABOVE OPTIMAL 130 - 159 mg/dl BORDERLINE HIGH 160 - 189 mg/dl HIGH >190 mg/dl VERY HIGH Performed By: #### T KADIE, LIPID, CMP #### [facility] [address] [address] [address] Mychal Oropeza Triglyceride [Mass/Vol] 188 mg/dL Critically high <=150 [facility] Comment on above: Performed By: #### T KADIE, LIPID, CMP #### [facility] [address] [address] [address] Mychal Oropeza VLDL CALC 37.6 mg/dL Normal [facility] Comment on above: Performed By: #### T KADIE, LIPID, CMP #### [facility] [address] [place] [address] Dr. Mychal Oropeza PROF 14(COMP METB)on 022 Albumin [Mass/Vol] 3.9 g/dL Normal 3.4-5.0 [facility] Comment on above: Performed By: #### T KADIE, LIPID, CMP #### [facility] [address] [address] [address] Mychal Oropeza Albumin/Globulin [Mass ratio] 1.1 {ratio} Normal [facility] Comment on above: Performed By: #### T KADIE, LIPID, CMP #### [facility] [address] [address] [address] Mychal Oropeza ALP [Catalytic activity/Vol] 77 U/L Normal 46-116 [facility] Comment on above: Performed By: #### T KADIE, LIPID, CMP #### [facility] [address] [address] [address] Mychal Oropeza ALT [Catalytic activity/Vol] 56 U/L Normal 16-63 [facility] Comment on above: Performed By: #### T KADIE, LIPID, CMP #### [facility] [address] [address] [address] Mychal Oropeza Anion gap [Moles/Vol] 8.6 mmol/L Normal [facility] Comment on above: Performed By: #### T SH, LIPID, CMP #### [facility] [address] [place] [address] Dr. Mychal Oropeza AST [Catalytic activity/Vol] 30 U/L Normal 15-37 [facility] Comment on above: Performed By: #### T SH, LIPID, CMP #### [facility] [address] [place] [address] Dr. Mychal Oropeza Bilirubin [Mass/Vol] 0.6 mg/dL Normal 0.2-1.0 [facility] Comment on above: Performed By: #### T SH, LIPID, CMP #### [facility] [address] [place] [address] Dr. Mychal Oropeza Calcium [Mass/Vol] 9.2 mg/dL Normal 8.5-10.1 [facility] Comment on above: Performed By: #### T SH, LIPID, CMP #### [facility] [address] [place] [address] Dr. Mychal Oropeza Chloride [Moles/Vol] 100 mmol/L Normal 98-107 [facility] Comment on above: Performed By: #### T SH, LIPID, CMP #### [facility] [address] [place] [address] Dr. Mychal Oropeza CO2 [Moles/Vol] 30.0 mmol/L Normal 21.0-32.0 [facility] Comment on above: Performed By: #### T SH, LIPID, CMP #### [facility] [address] [place] [address] Dr. Mychal Oropeza Creatinine [Mass/Vol] 1.37 mg/dL Critically high 0.70-1.30 [facility] Comment on above: Performed By: #### T SH, LIPID, CMP #### [facility] [address] [place] [address] Dr. Mychal Oropeza EGFR-AF GABONESE >60 Normal >=60 [facility] Comment on above: Performed By: #### T SH, LIPID, CMP #### [facility] [address] [place] [address] Dr. Mychal Oropeza EGFR-NON AF GABONESE 55 mL/min/1.73m2 Critically low >=60 [facility] Comment on above: Performed By: #### T KADIE, LIPID, CMP #### [facility] [address] [address] [address] Mychal Oropeza Globulin (S) [Mass/Vol] 3.7 g/dL Normal [facility] Comment on above: Performed By: #### T KADIE, LIPID, CMP #### [facility] [address] [address] [address] Mychal Oropeza Glucose [Mass/Vol] 111 mg/dL Critically high 74-106 [facility] Comment on above: Performed By: #### T KADIE, LIPID, CMP #### [facility] [address] [place] [address] Dr. Mychal Oropeza Potassium [Moles/Vol] 3.6 mmol/L Normal 3.5-5.1 [facility] Comment on above: Performed By: #### T KADIE, LIPID, CMP #### [facility] [address] [place] [address] Dr. Mychal Oropeza Protein [Mass/Vol] 7.6 g/dL Normal 6.4-8.2 [facility] Comment on above: Performed By: #### T KADIE, LIPID, CMP #### [facility] [address] [place] [address] Dr. Mychal Oropeza Sodium [Moles/Vol] 135 mmol/L Critically low 136-145 [facility] Comment on above: Performed By: #### T KADIE, LIPID, CMP #### [facility] [address] [place] [address] Dr. Mychal Oropeza Urea nitrogen [Mass/Vol] 14.0 mg/dL Normal 7.0-18.0 [facility] Comment on above: Performed By: #### T KADIE, LIPID, CMP #### [facility] [address] [address] [address] Mychal Oropeza Urea nitrogen/Creatinine [Mass ratio] 10.2 mg/mg Normal [facility] Comment on above: Performed By: #### T KADIE, LIPID, CMP #### [facility] [address] [place], [place] [address] Dr. Mychal Oropeza TSHon 05-27-2022 TSH 2.907 uIU/mL Normal 0.358-3.740 [facility] Comment on above: Performed By: #### T SH, LIPID, CMP #### [facility] [address] [place], [place] [address] Dr. Mychal Oropeza TESTOSTERONE, TOTALon 2021 Testosterone [Mass/Vol] 324 ng/dL Normal 264-916 [facility] Comment on above: Result Comment: Adul t male reference interval is based on a population of healthy nonobese males (BMI <30) between 19 and 39 years old. bouchra Quinones.al. JCEM 2017,102;0135-6226. PMID: [id number]. Performed By: #### T ESTTOT #### [facility] [address] [address] [address] Mychal Oropeza XR SPINE CERVICAL WITH [...] fair flexion. No instability is noted. Normal [facility] XR SPINE LUMBAR W BENDINGon 02-10-2021 [...] good range of motion without instability. Normal [facility] XR SPINE LUMBAR W BENDINGOrd ered By: Maik Barbosa on 02-10-2021 IMPRESSION: Lumbar s pine visually is fairly well preserved. There is no evidence of fracture, listhesis, significant disc space narrowing or major degenerative changes. There is a very good range of motion without instability. [employer] EXAM: XR SPINE LUMBA R W BENDING [...] motion. There is no listhesis or instability. [facility] [employer] User, Interfaces - 02/10/2021 4:52 PM EDT [...] very good range of motion without instability. [facility] Vital Signs Date Time Vital Sign Value Performing Clinician Facility 08-31-2023 15:30-0500 Body height 170.18 cm Kell Bowling Other [facility] Other 08-31-2023 15:30-0500 Body mass index (BMI) [Ratio] 33.04 kg/m2 Kell Bowling Other [facility] Other 08-31-2023 15:30-0500 Body weight 95.71 kg Kell Bowling Other [facility] Other 08-31-2023 15:30-0500 Diastolic blood pressure 77 mm[Hg] Kell Bowling Other [facility] Other 08-31-2023 15:30-0500 Systolic blood pressure 119 mm[Hg] Kell Bowling Other [facility] Other 08-01-2023 08:30-0500 Body height 170.18 cm Kell Bowling Other [facility] Other 08-01-2023 08:30-0500 Body mass index (BMI) [Ratio] 35.14 kg/m2 Kell Bowling Other [facility] Other 08-01-2023 08:30-0500 Body weight 101.79 kg Kell Bowling Other [facility] Other 08-01-2023 08:30-0500 Diastolic blood pressure 82 mm[Hg] Kell Bowling Other [facility] Other 08-01-2023 08:30-0500 Systolic blood pressure 118 mm[Hg] Kell Bowling Other [facility] Other 04-16-2021 12:05-0400 Diastolic blood pressure 97 mm[Hg] Maik Barbosa MD Work Phone: [facility] 04-16-2021 12:05-0400 Heart rate 54 /min Maik Barbosa MD Work Phone: [facility] 04-16-2021 12:05-0400 Respiratory rate 16 /min Maik Barbosa MD Work Phone: [facility] 04-16-2021 12:05-0400 SaO2% (BldA) [Mass fraction] 95 % Maik Barbosa MD Work Phone: [facility] 04-16-2021 12:05-0400 Systolic blood pressure 142 mm[Hg] Maik Barbosa MD Work Phone: [facility] 03-17-2021 08:04-0400 Body height 170.2 cm Maik Barbosa MD Work Phone: [facility] 03-17-2021 08:04-0400 Body mass index (BMI) [Ratio] 34.61 kg/m2 Maik Barbosa MD Work Phone: [facility] 03-17-2021 08:04-0400 Body weight 100.25 kg Maik Barbosa MD Work Phone: [facility] 03-17-2021 08:04-0400 Diastolic blood pressure 93 mm[Hg] Maik Barbosa MD Work Phone: [facility] 03-17-2021 08:04-0400 Heart rate 74 /min Maik Barbosa MD Work Phone: [facility] 03-17-2021 08:04-0400 Respiratory rate 20 /min Maik Barbosa MD Work Phone: [facility] 03-17-2021 08:04-0400 SaO2% (BldA) [Mass fraction] 96 % Maik Barbosa MD Work Phone: [facility] 03-17-2021 08:04-0400 Systolic blood pressure 132 mm[Hg] Maik Barbosa MD Work Phone: [facility] 02-24-2021 12:02-0400 Diastolic blood pressure 100 mm[Hg] Maik Barbosa MD Work Phone: [facility] 02-24-2021 12:02-0400 Heart rate 55 /min Maik Barbosa MD Work Phone: [facility] 02-24-2021 12:02-0400 Respiratory rate 18 /min Maik Barbosa MD Work Phone: [facility] 02-24-2021 12:02-0400 SaO2% (BldA) [Mass fraction] 95 % Maik Barbosa MD Work Phone: [facility] 02-24-2021 12:02-0400 Systolic blood pressure 141 mm[Hg] Maik Barbosa MD Work Phone: [facility] 02-10-2021 11:46-0400 Body height 170.2 cm Maik Barbosa MD Work Phone: [facility] 02-10-2021 11:46-0400 Body mass index (BMI) [Ratio] 34.61 kg/m2 Maik Barbosa MD Work Phone: [facility] 02-10-2021 11:46-0400 Body weight 100.25 kg Maik Barbosa MD Work Phone: [facility] 02-10-2021 11:46-0400 Diastolic blood pressure 81 mm[Hg] Maik Barbosa MD Work Phone: [facility] 02-10-2021 11:46-0400 Heart rate 64 /min Maik Barbosa MD Work Phone: [facility] 02-10-2021 11:46-0400 Respiratory rate 18 /min Maik Barbosa MD Work Phone: [facility] 02-10-2021 11:46-0400 SaO2% (BldA) [Mass fraction] 99 % Maik Barbosa MD Work Phone: [facility] 02-10-2021 11:46-0400 Systolic blood pressure 121 mm[Hg] Maik Barbosa MD Work Phone: [facility] Encounters Encounter Date Encounter Type Care Provider Facility Start: 07-31-2024 ambulatory Chata Page Facility:[facility] Start: 08-31-2023 End: 08-31-2023 ambulatory Kell Bowling Other [facility] Other Start: 08-31-2023 Office outpatient vi sit 15 minutes Kell Bowling [facility] Start: 08-01-2023 End: 08-01-2023 ambulatory Kell Bowling Other [facility] Other Start: 08-01-2023 Encounter for genera l adult medical examination without abnormal findings Kell Bowling [facility] Start: 08-01-2023 Periodic preventive med est patient 40-64yrs Kell Bowling [facility] Start: 07-26-2023 End: 07-27-2023 ambulatory Chata [...] examination without abnormal findings DR KELL BOWLING [facility] Start: 05-27-2022 End: 05-28-2022 ambulatory [...] Support Encounter Maik Barbosa MD Work Phone: [facility] Comment on above: Myofascial pain (Ara reji Dx) Start: 02-10-2021 End: 02-10-2021 Subsequent hospital visit by physician Maik Barbosa MD Work Phone: [facility] Comment on above: Arrived Start: [...] Comment on above: Performed By: #### P [facility] #### [facility] [address] [place] [address] Dr. Mychal Oropeza Start: 02-10-2021 Radex spine lumbscrl compl w/bending views min 6 Maik Barbosa MD Work Phone: Plan of Treatment Date Care Activity Detail Author Start: 05-21-2021 End: 05-21-2021 Patient encounter procedure 05/21/2021 Office Visit Anesthesiology Pain Mgt Maik Barbosa MD [address] [place] [address] [facility] Start: 05-12-2021 Influenza vaccination A [facility] Start: 05-07-2021 End: 05-07-2021 Patient encounter procedure 05/07/2021 Office Visit Anesthesiology Pain Maik Carbajal MD [address] [place] [address] [facility] Start: 05-03-2021 End: 05-03-2021 Patient encounter procedure 05/03/2021 Office Visit Anesthesiology Pain Mgt Maik Barbosa MD [address] [place] [address] [facility] Start: 04-27-2021 End: 04-27-2021 Patient encounter procedure 04/27/2021 Office Visit Anesthesiology Pain Mgt Maik Barbosa MD [address] [place] [address] [facility] Start: 03-17-2021 End: 03-17-2021 Patient encounter procedure 03/17/2021 Office Visit Anesthesiology Pain Mgt Maik Barbosa MD [address] [place] [address] [phone] [facility] Start: 02-24-2021 End: 02-24-2021 Patient encounter procedure 02/24/2021 Office Visit Anesthesiology Pain Mgt Maik Barbosa MD [address] [place] [address] [facility] Start: 02-10-2021 End: 02-11-2021 DRUG SCREEN MED COMPLIANCE I DRUG SCREEN MED COMPLIANCE I Lab Routine Compliance with medication regimen Expected: 02/10/2021, Expires: 02/11/2021 [facility] Comment on above: Expected: 02/10/2021 , Expires: 02/11/2021 Start: 02-08-2020 Prostate specific antigen measurement PROSTATE CANCER SCREENING DISCUSSION [facility] Start: 02-08-2020 Zoster vaccine hzv l wilmar for subcutaneous use ZOSTER (SHINGLES) VACCINE (1 of 2) [facility] Start: 2015 Colonoscopy COLORECTAL CAN CER SCREENING DISCUSSION [facility] Start: 2010 Fasting lipid profile LIPID SCREENIN G [facility] Start: 1989 Third diphtheria, tetanus and acellular pertussis (DTaP) vaccination TDAP (ADULT) [facility] Start: 02-08-1988 Tetanus vaccination TETANUS [facility] Start: 1985 HIV screening HIV SCREENING DISCUSSI ON [facility] Start: 1982 COVID-19 VACCINE (1) COVID-19 VACCIN E (1) [facility] Start: 1970 Hepatitis C antibody , confirmatory test HEPATITIS C VIRUS SCREENING [facility] Payers Date Payer Category Payer Unknown [id number] 2019 Unknown [id number] 2018 Unknown [id number]. [id number] 1970 Unknown [id number] 2.16.84 [id number] 1970 Unknown [id number] .16.84 [id number] 1970 Unknown [id number] .16.84 [id number] 1970 Unknown [id number] 2.16.84 [id number] 1970 Unknown [id number] 2.16.84 [id number] 1970 Unknown [id number] 2.16.84 [id number] 1970 Unknown [id number] 2.16.84 [id number] 1970 Unknown [id number] 2.16.84 [id number] 1970 Unknown [id number] 2.16.8 [id number] 1970 Unknown [id number] 2.16.8 [id number] 1970 Unknown [id number] 2.16.8 [id number] 1959 Self-pay [id number] Unknown [id number] 2.16.84 [id number] Unknown [id number] Social History Date Type Detail Facility Start: 02-10-2021 End: 03-17-2021 Tobacco smoking status NHIS Never smoker [facility] Start: 02-10-2021 End: 03-17-2021 Tobacco use and exposure Never used [facility] Start: 02-10-2021 End: 03-17-2021 Alcohol intake Current drinker of alcohol (finding) [facility] Start: 02-10-2021 End: 03-17-2021 Alcohol intake [facility] Start: 02-10-2021 Alcohol Comment 5 beers/week [facility] Start: 1970 Sex Assigned At Not on file A [facility] [employer] [facility] Sex Assigned At Sex Assigned At Bir th [facility] Other Clinical Notes 02-10-2021 to 08-31-2023 [...] index [BMI] 33.0-33.9, adult (ICD-10 - Z68.33) [facility] Other 11-21-2023 Evaluation note* Encounter Date [...] (ICD-10 - M54.50) Pt requests referral to [facility]. He hopes to lessen his use of NSAIDs to improve his renal function. Jul, Other chronic pain (ICD-10 - G89.29) Jul, JOSÉ (obstructive sleep apnea) (ICD-10 - G47.33) Form completed for [facility]. Jul, Class 2 obesity [...] to ER and Follow-up with me immediately. [facility] Other 08-06-2021 History and physical note* Maik [...] bilateral lumbar facet block documented in this [facility]08-06-2021 History of Present illness Narrative* Humera Genao RN - 04/16/2021 11:30 AM EDT SCRUB - Shellie Alaniz RN RT - RT Ilia YACHT CAPTAIN - N/A PLATE SHEAR OPERATOR - Aurelio Genao RN Site cleansed with [...] and earlier as needed. [id number] Instructions* Patient Instructions* Geovanna Degroot RN - 04/16/2021 11:30 AM EDT [employer] [facility] WHAT TO EXPECT AFTER A PROCEDURE Follow up appointment: Call the office ([phone]) if you have any questions or develop [...] to call us at . Thank you, [facility] History of Present illness Narrative* Maik [...] tried OTC tylenol, celebrex with somemild relief. Dale has helped in the past, but would [...] Denies dysuria or frequency documented in this [facility]07-07-2021 Instructions* Patient Instructions* Geovanna Degroot RN [...] when current is passed using the radiofrequency [employer]allyPoint[employer] ne. This numbs the nerves. What should [...] complications are extremely rare. documented in this [facility]06-16-2021 History and physical note* Maik Barbosa [...] trapezius, and lumbar paraspinal [facility] History of Present illness Narrative* Madina Summers RN - 02/24/2021 11:15 AM EDT PHYSICIAN - SCRUB - Kitty Martinez RN PLATE SHEAR OPERATOR - [facility] Site cleansed [...] Denies dysuria or frequency documented in this [facility]06-02-2021 History of Present illness Narrative* Maik [...] Social Gatherings with Friends and Family: Attends Jewish Services: Active Member of Clubs or Organizations: [...] tried OTC tylenol, celebrex with somemild relief. Dale has helped in the past, but would [...] within the last year. documented in this [facility]06-02-2021 Instructions* Patient Instructions* Geovanna Degroot RN [...] read the attached handout from the [employer] [place] [employer] Health with guidelines and recommendations for [...] complications are extremely rare. documented in [facility]* Diagnosis Myofascial pain- Primary Mylagia and myositis, unspecified Arthropathy of cervical facet joint Cervical spondylosis without myelopathy Spondylosis of lumbar region without myelopathy or radiculopathy Lumbosacral spondylosis without myelopathy Chronic pain syndrome Compliance with medication regimen [facility] Diagnosis Spondylosis of lumbar region without myelopathy or radiculopathy Lumbosacral spondylosis without myelopathy [facility] Diagnosis Myofascial pain- Primary Mylagia and myositis, unspecified [facility] Diagnosis Lumbar spondylosis- Primary Lumbosacral spondylosis without myelopathy Lumbar radiculopathy Thoracic or lumbosacral neuritis or radiculitis, unspecified Spinal stenosis of cervical region Spinal stenosis in cervical region Chronic pain syndrome Myofascial pain Mylagia and myositis, unspecified [facility] Diagnosis Lumbar spondylosis- Primary Lumbosacral spondylosis without myelopathy Chronic pain syndrome Myofascial pain Mylagia and myositis, unspecified documented in this [facility] N[facility]ative - Reported* Type Description Date Medical History Elevated cholesterol with elevat ed triglycerides Medical History Low serum testosterone level Medical History Lumbar pain Medical History Hypertension Medical History Diverticulosis Surgical History R shoulder arthroscopy Surgical History FB R wrist Surgical History Umbilical hernia repair 07/12/20 23 Surgical History Colonoscopy 06/25/2023 Hospitalization History SEE SURGICAL HX [facility] Other Reason for Referral Status Reason Specialty Diagnoses / Procedures Referred By Contact Referred To Contact Auth Not Needed Diagnoses Myofascial pain Chronic pain syndrome Maik Barbosa MD [address] [place] [address] Scheduling Instructions Please PA and schedule: neck and back TPI (pt will need a [address] Barbosa) Reason *FU 08/08 chronic lumbar pain, would benefit from less NSAID use. Diagnosis 1 Low back pain, unspe cified (M54.50) Referral Organization [facility] xochitl Referring Provider First Name Kell Referring Provider Last Name Tawnya Referring Provider Specialty Family Medi cine Referred Organization [facility] Referred Address [address], [place],[address] Referred Provider Specialty Pain Medicin e Referral Priority Routine General Notes Es Cooper 05:14:13 PM >received today, attachments made, notes locked, referral faxed Clinical Notes f: [id number] Summary Purpose Family History No Family History [...] Chronic pain syndrome Maik Barbosa MD [address] [place] [address] Reason Comments Pain Specialty Diagnoses / Procedures Referred By Contac t Referred To Contact Diagnoses Lumbar facet arthropathy Maik Barbosa MD [address] [place] [address] Referral ID Status Reason Start Date Expiration Date Visits Re quested Visits Authorized [id number] Closed 04/14/2021 05/09/2022 1 1 (unrecognized sect ion and content) No Status Records FoundNo Status Records FoundNo Status Records Found INFORMATION SOURCE (unrecogn ized section and content) DATE CREATED AUTHOR 05/10/2021 [facility] DATE CREATED AUTHOR AUTHOR'S ORGANIZ ATION 01/13/2023 [facility] DATE CREATED AUTHOR AUTHOR'S ORGANIZ ATION 07/27/2023 [facility] Care Teams (unrecognized sec tion and content) Street Roller Engineer Relationship Specialty Start Date End Date Kell Bowling MD [address] [place] [address] PCP - General Family Medicine 02/10/21 FOR [...] BE BASED ON THE PRIMARY CLINICAL RECORDS. [employer] [facility]. provides no warranty or guarantee of the accuracy or completeness of information in this document.
--- NOTE | 2023-09-28 15:29 | P.CN_ITS ---
Consult Note: HPI Data of Consult Patient: known to practice within the last 3 years Requesting Physician: Rhonda Cheng NP Primary Care Provider: Kell Jack MD Consult Narrative Reason for consult: f/u Narrative: Manuel Burgos a pleasant 53 year old male presents for evaluation and management of chronic back pain. Recently underwent bilateral L4-5 L5-S1 facet medial branch block #1 with 100% pain relief and functional improvement immediately following and 8 hours after the procedure. Today pain 5/10 in low back, worse with all activity and improved with lying and sleeping. Has noticed mild temporary relief from dry needling. At this time no benefit from PT/aquatherapy. Patient taking diclofenac 75mg BID robaxin 500mg PRN and duloxetine 30 mg daily without side effects. Patient utilizing topical cream from transdermal therapeutics with benefit. cc:: CC: Rhonda Cheng NP Review of Systems ROS Status of ROS 10 or more systems reviewed and unremark able except as noted in history and below Musculoskeletal Reports: back pain PFSH PFSH Medical History Heartburn ?R12 - Heartburn (ICD-10) Umbilical hernia ?K42.9 - Umbilical hernia without obstruction or gangrene (ICD-10) H/O retained foreign body fully removed ?Z87.821 - Personal history of retained foreign body fully removed (ICD-10) Hypertension ?I10 - Essential (primary) hypertension (ICD-10) Glaucoma ?H40.9 - Unspecified glaucoma (ICD-10) Surgical History History of surgery on right wrist ?Z98.890 - Other specified postprocedural states (ICD-10) H/O arthroscopy of shoulder ?Z98.890 - Other specified postprocedural states (ICD-10) H/O colonoscopy ?Z98.890 - Other specified postprocedural states (ICD-10) Family History Aunt Family history of cancer Grandmother Family history of cancer Grandfather Family history of cancer Other Family history of diabetes mellitus Family history of hypertension Family history of myocardial infarction Social History Within the past year, how often did you have a drink containing alcohol: 2-3 times a week Within the past year, how many standard drinks containing alcohol did you have on a typical day: 5 or 6 Within the past year, how often did you have six or more drinks on one occasion: weekly Total score: 7 Score interpretation: A score of 4 or more indicates drinking is likely to affect patient's safety. 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 Highest level of school completed/degree received: Associate degree: academic program Meds Home Medications and Allergies Home Medications Medication Instructions Recorded Confirmed Type ascorbic acid (vitamin C) 250 mg 250 mg PO DAILY 06/22/23 09/19/23 History tablet atenolol 50 mg-chlorthalidone 25 1 tab PO DAILY 06/22/23 09/19/23 History mg tablet diclofenac sodium 75 mg 75 mg PO BID 06/22/23 09/19/23 History tablet,delayed release duloxetine 30 mg capsule,delayed 30 mg PO DAILY 06/22/23 09/19/23 History release testosterone 1.62 % (20.25 mg/1.25 1 packet transdermal QAM 06/22/23 09/19/23 History gram) transdermal gel packet (AndroGel) vitamin B comp and C no.3 15 mg-10 1 cap PO DAILY 06/22/23 09/19/23 History mg-50 mg-5 mg-300 mg capsule (B Complex Plus Vitamin C) methocarbamol 750 mg tablet 750 mg PO TID 08/31/23 09/19/23 History Allergies Allergy/AdvReac Type Severity Reaction Status Date / Time No Known Drug Allergies Allergy Verified 07/03/23 13:23 Exam Constitutional Documenting provider has reviewed patient's vital signs: yes Common normals: no apparent distress, oriented x3, healthy appearing, alert and well nourished General appearance: cooperative [facility] Common normals: normocephalic, hearing grossly normal bilaterally and moist oral mucous membranes Head and scalp: normocephalic Eye Common normals: PERRL Pupil: PERRL Neck & C-Spine Common normals: full ROM General: normal visual inspection Chest Common normals: inspection of chest normal Respiratory Common normals: normal respiratory effort, no retractions and no use of accessory muscles Back & Pelvis Lumbar spine/lower back: ROM limited and pain with ROM Extremity Common normals: normal to inspection and full ROM Neuro Common normals: oriented x3, CN's II-XII intact bilaterally, moves all extremities, no focal motor deficits, no sensory deficits noted and deep tendon reflexes 2+ bilaterally Sensorium/orientation: alert Motor exam: strength 5/5 throughout and no movement abnormalities noted Psych Common normals: mental status grossly normal, thought process normal, cooperative, affect normal, speech normal and activity/motor behavior normal Speech: normal speech Thought process: normal thought process Results Additional Findings Additional findings: I have checked an OARRS report on this patient today and there are no aberrancies noted in the prescribing history.?? A drug screen was completed and reviewed within the last year, and if there has not been a drug screen completed we ordered one today to monitor higher risk, state monitored pain medication use. As part of providing excellent, safe, comprehensive care, the following was completed at our patient's visit: 1. A medication reconciliation and review to ensure accurate knowledge of current/active medications, including asking our patients to inform us about any [id number] medications or herbal remedies/nutritional supplem ents/alternative remedies. 2. A review to specifically ensure our patients have had annual screening for: elevated body mass index (BMI), tobacco use, screening for depression, and screening for unhealthy alcohol use. When screening is concerning, patients are provided with education and the specific recommendation to discuss the concerning health issue and treatment options with their primary care provider. Assessment and Plan Assessment and Plan (1) Lumbar spondylosis: Assessment and Plan: The patient has had over 3 months of moderate to severe low back pain with functional impairment and inadequate response to conservative care including NSAIDS (unless there are contraindication such as concurrent blood thinners), multiple oral or topical pain medications, and home exercise program/physical therapy.? Patient has completed >6 weeks of guided home exercise program and/or formal physical therapy program without relief of their symptoms.? I have reviewed the imaging of the lumbar spine and no red flags were identified.? The imaging reveals radiographic findings consistent with lumbar spondylosis We discussed the risks and benefits of the procedure with the patient, and we are NOT planning on using sedation as outlined in the guidelines from Medicare unless there is a documented reason that sedation would be strongly recommended.?? The procedure will be completed with fluoroscopic guidance.? (2) Myofascial pain: Plan bilateral facet medial branch thermal RFA at L4-5 L5-S1 under fluoroscopy continue HEP/PT as tolerated continue current medications, tolerating well without side effects refill [employer]dermal therapeutics cream f/u 1 month after RFA
== END 2023-09-28 14:53 | disposition home or self-care (01) ==
PROVIDERS: PCP Family Medicine; Visit Provider Nurse Practitioner
DX: M47.816 Spondylosis without myelopathy or radiculopathy, lumbar region (principal); M79.18 Myalgia, other site
CPT/HCPCS: G0463

== ENCOUNTER 2023-10-03 07:02 | Day surgery (SDC) | payer BC, SELFPAY ==
--- OUTSIDE RECORDS SUMMARY | 2023-10-03 07:06 | XMS_ITS | CCD ---
Author Name Unknown Address [address] [place] [address] Organization [facility] Care Team Providers Care Pit Clerk Name Role Phone Kell Bowling MD Primary Care Provider [phone] TAWNYA, DR KELL Romero Primary Care Unavailable [...] Page Attending Unavailable Chata Page Attending Unavailable Cahta Page Attending Unavailable Kell Bowling Unavailable Allergies Allergy Classification Reported Allergen(s) Allergy Type Date of Onset Reaction(s) Facility (2 sources) patient allergy list reviewed by nurse or physicia Propensity to adverse reactions 9 Comment:Done [facility] Other (2 sources) Allergies Reconciled Propensity to adverse reactions Unknown [facility] Other Medications Current Medications Medication Drug Class(es) Dates Sig (Normalized) Sig (Original) Amoxicillin (1 source) Penicillin-class Antibacterial Amoxicillin Active Atenolol / Chlorthalidone (7 sources) Thiazide-like Diuretic, beta-Adrenergic Daron Start: 08-22-2022 take 1 tablet by mouth once daily Atenolol-Chlortha lidone 50-25mg atenoloL-chlortha lidone 50-25mg, 1 (one) Tablet daily # 90, 08/22/2022, Ref. x1. Active oral daily for 90 *Pick strength-form from [employer] for eRX* Aug, Active Start: 02-05-2021 atenolol-chlor thalidone 50-25 MG tablet cyclobenzaprine hydrochloride 10 mg oral tablet (7 sources) Muscle Relaxant Start: 05-31-2022 take 1 tablet by mouth three times daily as needed cyclobenzaprine 10mg cyclobenzaprine 10mg, 1 (one) Tablet three times daily, as needed # 30, 05/31/2022, No Refill. Active oral three times daily, as needed for 0 *Reorder from [employer] for eRx and Interaction Alerts* May, Active [...] Refill. Active transdermal for 0 *Reorder from [employer] for eRx and Interaction Alerts* May, Active [...] FERMIN, Chata Inman Where: [facility] Lab Reportson 07-26-2023 Lab Reports [id number]#1.00TIFF Normal [facility] Lab Reports [id number]#1.00TI FF Normal [facility] Medication Consenton 023 Medication Consent [id number]#1.00TI FF Normal [facility] Patient Educationon 07-26-20 23 Patient Education Urology [...] Follow these instructions at home: ? Take mash-rly-rgsydmn and prescription medicines only as told by [...] from the medicine (more content not included)... [facility] Reminderson 07-26-2023 Reminders - From: Meme Haley To: EU - Recalls Lue; Sent: 07/26/2023 11:33:52 EST Show up: 05/26/2024 12:33:00 EDT Subject: Labs Due Date/Time: 07/26/2024 11:33:00 EST Pt will need T Level, HCT and PSA prior to appt. PSA is done by PCP. [facility] Screenson 07-26-2023 Screens [id number]#1.00TI FF [facility] Screens [id number]#1.00TI FF [facility] Urology Office/Clinic Noteon 07-26-2023 Urology Office/Clinic Note Chief Complaint 6m Testosterone Level HPI Staff 6m Testosterone Level DX: Hypogonadism, Impotence & BPH *Cialis 10mg PRN (occasionally uses 20mg) & Androgel 2 pumps qd PSA 07/05/23- 0.78 CBC/CMP 07/05/23 *BUN 21.0 & Crea 1.48 eGFR 50 *Hgb 12.3 & Hct 38.9 A1C 07/05/23- 5.8 Testosterone 07/20/23- 366 (957-365) Pt has no concerns at this time. [...] mRNA BNT-162b2 vax (more content not included)... [facility] Comment on above: Result Comment: Elec tronically Signed By: Chata Page MD\.br\Date and Time Signed: 07/26/23 08:57 EST\.br\Electronically Co-Signed By: Meme Haley\.br\Date and Time Co-Signed: 07/26/23 08:37 EST Lab Reportson 07-24-2023 Lab Reports [id number]#1.00TIF F [facility] Ambulatory Visit Summaryon 0 01-11-2023 Ambulatory Visit Summary MANUEL ROSAS :1970 Visit Date:01/11/2023 Ambulatory Visit Instructions Your Diagnosis Impotence Male hypogonadism BPH (benign prostatic hyperplasia) Tests Performed Urnls Dip Stick Auto w/o Microscopy POC [id number] Your Care Team Attending Physician - Chata [...] Chata Page MD Where: [facility] Patient Educationon 01-12-20 Patient Education Urology [...] provider. Document Revised: 08/03/2020 Document Reviewed: 08/03/2020 [employer] Patient Education ? 2022 Latest Medical. Normal [facility] Screenson 01-11-2023 Screens [id number]#1.00CD :127 Normal [facility] Screens [id number]#1.00CD :127 Normal [facility] Urology Office/Clinic Noteon 01-11-2023 Urology Office/Clinic Note Chief Complaint 6 month follow up HPI Staff 6 month follow up w/testosterone level 487 done 01/06/23, previous testosterone level 410 done 06/20/22. Previous DX: BPH, impotence, male hypogonadism. Pt is currently taking Cialis 10mg PRN, and AndroGel 2 pumps daily-refill on both medications sent to [facility] in [place]. IPSS is , MAKI 22. Dysuria: denies [...] Androgel 2 pumps daily. Refill sent to [facility]. Good range and sx improvement, prior CBC [...] Urine Dips (more content not included)... Normal [facility] Comment on above: Result Comment: Elec tronically Signed By: Chata Page MD\.br\Date and Time Signed: 01/11/23 19:10 EDT\.br\Electronically Co-Signed By: Ericka Mcconnell.br\Date and Time Co-Signed: 01/11/23 10:32 EDT Lab Reportson 01-10-2023 Lab Reports [id number]#1.00CD: 127 Normal [facility] TESTOSTERONE, TOTALon 2022 Testosterone [Mass/Vol] 487 ng/dL Normal 264-916 [facility] Comment on above: Result Comment: Adul t male reference interval is based on a population of healthy nonobese males (BMI <30) between 19 and 39 years old. Joni et.al. JCEM 2017,102;9024-5656. PMID: 59735699. Performed By: #### T ESTTOT #### [facility] [address] [place] [address] Dr. Mychal Oropeza Pre-Certification Formon Pre-Certification Form [id number]#1.00CD: 127 Normal [facility] Pre-Certification Formon Pre-Certification Form [id number]#1.00CD: 127 Normal [facility] Pre-Certification Formon Pre-Certification Form [id number]#1.00CD: 127 Normal [facility] US SINGLE QUAD RT UPPERon US SINGLE [...] by: CHRISTOFER SCHAEFFER Date: 2022-08-25 07:07 Normal [facility] Historical Records Officeon 08-19-2022 Historical Records Office [id number]#1.00CD: 127 Normal [facility] Pre-Certification Formon Pre-Certification Form [id number]#1.00CD: 127 Normal [facility] Patient Letter FTMCon 2021 Patient Letter [facility] (Inserted Image. Nga ble to display) August 18, 2022 ARMANDORAYMUNDO NOLANEL [address] [place] [address] RAYMUNDO ROSASEL 1970 Dear Whomever it may [...] Sincerely, Dr. Chata Page MD [facility] [address] [place] [address]. [place] [address] Normal [facility] TESTOSTERONE, TOTALon 2021 Testosterone [Mass/Vol] 410 ng/dL Normal 264-916 [facility] Comment on above: Result Comment: Adul t male reference interval is based on a population of healthy nonobese males (BMI <30) between 19 and 39 years old. Joni, et.al. JCEM 2017,102;9407-0248. PMID: 85330567. Performed By: #### T ESTTOT #### [facility] [address] [address] [address] Mychal Oropeza CBC AUTO DIFFon 05-27-2022 BASO # 0.1 103/ul Normal 0.0-0.1 [facility] Comment on above: Performed By: #### C BC #### [facility] [address] [place] [address] Dr. Mychal Oropeza Basophils/100 WBC (Bld) 0.9 % Normal 0.2-2.0 [facility] Comment on above: Performed By: #### C BC #### [facility] [address] [place] [address] Dr. Mychal Oropeza EO # 0.7 103/ul Normal 0.0-0.7 [facility] Comment on above: Performed By: #### C BC #### [facility] [address] [place] [address] Dr. Mychal Oropeza Eosinophils/100 WBC (Bld) 6.7 % Normal 0.9-7.0 [facility] Comment on above: Performed By: #### C BC #### [facility] [address] [place] [address] Dr. Mychal Oropeza Erythrocyte distribution width (RBC) [Ratio] 12.8 % Normal 11.0-15.0 [facility] Comment on above: Performed By: #### C BC #### [facility] [address] [place] [address] Dr. Mychal Oropeza Hematocrit (Bld) [Volume fraction] 46.9 % Normal 42.0-54.0 [facility] Comment on above: Performed By: #### C BC #### [facility] [address] [place] [address] Dr. Mychal Oropeza Hemoglobin (Bld) [Mass/Vol] 16.2 g/dL Normal 14.0-18.0 [facility] Comment on above: Performed By: #### C BC #### [facility] [address] [place] [address] Dr. Mychal Oropeza IG # 0.04 10e3/ul Critically high 0.00-0.03 [facility] Comment on above: Performed By: #### C BC #### [facility] [address] [place] [address] Dr. Mychal Oropeza IG % 0.4 % Normal 0.0-0.5 [facility] Comment on above: Performed By: #### C BC #### [facility] [address] [address] [address] Mychal Oropeza LYMPH # 4.1 103/ul Critically high 1.2-3.8 [facility] Comment on above: Performed By: #### C BC #### [facility] [address] [address] [address] Mychal Oropeza Lymphocytes/100 WBC (Bld) 37.7 % Normal 20.5-60.0 [facility] Comment on above: Performed By: #### C BC #### [facility] [address] [place] [address] Dr. Mychal Oropeza MANUAL DIFF REQ NO Normal [facility] Comment on above: Performed By: #### C BC #### [facility] [address] [place] [address] Dr. Mychal Oropeza MCH (RBC) [Entitic mass] 30.7 pg Normal 25.9-34.0 [facility] Comment on above: Performed By: #### C BC #### [facility] [address] [place] [address] Dr. Mychal Oropeza MCHC (RBC) [Mass/Vol] 34.5 g/dL Normal 29.9-35.2 [facility] Comment on above: Performed By: #### C BC #### [facility] [address] [place] [address] Dr. Mychal Oropeza MCV (RBC) [Entitic vol] 88.8 fL Normal 80.0-94.0 [facility] Comment on above: Performed By: #### C BC #### [facility] [address] [place] [address] Dr. Mychal Oropeza MONO # 0.9 103/ul Critically high 0.3-0.8 [facility] Comment on above: Performed By: #### C BC #### [facility] [address] [place] [address] Dr. Mychal Oropeza Monocytes/100 WBC (Bld) 8.1 % Normal 1.7-12.0 [facility] Comment on above: Performed By: #### C BC #### [facility] [address] [address] [address] Mychal Oropeza NEUT # 5.1 103/ul Normal 1.4-6.5 [facility] Comment on above: Performed By: #### C BC #### [facility] [address] [address] [address] Mychal Oropeza Neutrophils/100 WBC (Bld) 46.2 % Normal 43.0-75.0 [facility] Comment on above: Performed By: #### C BC #### [facility] [address] [address] [address] Mychal Oropeza Platelet mean volume (Bld) [Entitic vol] 9.7 fL Normal 9.5-13.5 [facility] Comment on above: Performed By: #### C BC #### [facility] [address] [address] [address] Mychal Oropeza PLT 308 103/ul Normal 150-450 [facility] Comment on above: Performed By: #### C BC #### [facility] [address] [address] [address] Mychal Oropeza RBC 5.28 106/ul Normal 4.70-6.10 [facility] Comment on above: Performed By: #### C BC #### [facility] [address] [address] [address] Mychal Oropeza WBC 10.9 103/ul Normal 4.0-11.0 [facility] Comment on above: Performed By: #### C BC #### [facility] [address] [address] [address] Mychal Oropeza GLYCOHEMOGLOBIN A1Con 2021 ADA RECOMMENDATION SEE BELOW Normal [facility] Comment on above: Result Comment: ADA RECOMMENDED LIMIT 4.0 - 6.0 ADA THERAPEUTIC TARGET < 7.0 ACTION SUGGESTED > 7.0 Performed By: #### A 1C #### [facility] [address] [address] [address] Mychal Oropeza Glucose [Mass/Vol] 108 mg/dL Normal [facility] Comment on above: Performed By: #### A 1C #### [facility] [address] [address] [address] Mychal Oropeza HbA1c (Bld) [Mass fraction] 5.4 % Normal 4.5-6.2 [facility] Comment on above: Performed By: #### A 1C #### [facility] [address] [address] [address] Mychal Oropeza LIPID PROFILEon 05-27-2022 CHOL-HDL RATIO NORM SEE BELOW Normal [facility] Comment on above: Result Comment: 3.3 - 4.4 LOW RISK 4.4 - 7.1 AVERAGE RISK 7.1 - 11.0 MODERATE RISK >11.0 HIGH RISK Performed By: #### T SH, LIPID, CMP #### [facility] [address] [address] [address] Mychal Oropeza Cholesterol [Mass/Vol] 207 mg/dL Critically high <=200 [facility] Comment on above: Performed By: #### T SH, LIPID, CMP #### [facility] [address] [address] [address] Mychal Oropeza Cholesterol in HDL [Mass/Vol] 47 mg/dL Normal 40-60 [facility] Comment on above: Performed By: #### T SH, LIPID, CMP #### [facility] [address] [address] [address] Mychal Oropeza Cholesterol in LDL [Mass/Vol] 122.4 mg/dL Normal [facility] Comment on above: Performed By: #### T SH, LIPID, CMP #### [facility] [address] [address] [address] Mychal Oropeza Cholesterol.total/Ch olesterol in HDL [Mass ratio] 4.4 {ratio} Normal [facility] Comment on above: Performed By: #### T SH, LIPID, CMP #### [facility] [address] [address] [address] Mychal Oropeza HDL NORMAL > or = 60 mg/dl - LO W CARDIOVASCULAR RISK <40 mg/dl - HIGH CARDIOVASCULAR RISK Normal [facility] Comment on above: Performed By: #### T SH, LIPID, CMP #### [facility] [address] [address] [address] Mychal Oropeza LDL CALC NORMAL SEE BELOW Normal [facility] Comment on above: Result Comment: <100 mg/dl OPTIMAL 100 - 129 mg/dl NEAR OR ABOVE OPTIMAL 130 - 159 mg/dl BORDERLINE HIGH 160 - 189 mg/dl HIGH >190 mg/dl VERY HIGH Performed By: #### T KADIE, LIPID, CMP #### [facility] [address] [address] [address] Mychal Oropeza Triglyceride [Mass/Vol] 188 mg/dL Critically high <=150 [facility] Comment on above: Performed By: #### T KADIE, LIPID, CMP #### [facility] [address] [address] [address] Mychal Oropeza VLDL CALC 37.6 mg/dL Normal [facility] Comment on above: Performed By: #### T KADIE, LIPID, CMP #### [facility] [address] [place] [address] Dr. Mychal Oropeza PROF 14(COMP METB)on 022 Albumin [Mass/Vol] 3.9 g/dL Normal 3.4-5.0 [facility] Comment on above: Performed By: #### T KADIE, LIPID, CMP #### [facility] [address] [address] [address] Mychal Oropeza Albumin/Globulin [Mass ratio] 1.1 {ratio} Normal [facility] Comment on above: Performed By: #### T KADIE, LIPID, CMP #### [facility] [address] [address] [address] Mychal Oropeza ALP [Catalytic activity/Vol] 77 U/L Normal 46-116 [facility] Comment on above: Performed By: #### T KADIE, LIPID, CMP #### [facility] [address] [address] [address] Mychal Oropeza ALT [Catalytic activity/Vol] 56 U/L Normal 16-63 [facility] Comment on above: Performed By: #### T KADIE, LIPID, CMP #### [facility] [address] [address] [address] Mychal Oropeza Anion gap [Moles/Vol] 8.6 mmol/L Normal [facility] Comment on above: Performed By: #### T SH, LIPID, CMP #### [facility] [address] [place] [address] Dr. Mychal Oropeza AST [Catalytic activity/Vol] 30 U/L Normal 15-37 [facility] Comment on above: Performed By: #### T SH, LIPID, CMP #### [facility] [address] [place] [address] Dr. Mychal Oropeza Bilirubin [Mass/Vol] 0.6 mg/dL Normal 0.2-1.0 [facility] Comment on above: Performed By: #### T SH, LIPID, CMP #### [facility] [address] [place] [address] Dr. Mychal Oropeza Calcium [Mass/Vol] 9.2 mg/dL Normal 8.5-10.1 [facility] Comment on above: Performed By: #### T SH, LIPID, CMP #### [facility] [address] [place] [address] Dr. Mychal Oropeza Chloride [Moles/Vol] 100 mmol/L Normal 98-107 [facility] Comment on above: Performed By: #### T SH, LIPID, CMP #### [facility] [address] [place] [address] Dr. Mychal Oropeza CO2 [Moles/Vol] 30.0 mmol/L Normal 21.0-32.0 [facility] Comment on above: Performed By: #### T SH, LIPID, CMP #### [facility] [address] [place] [address] Dr. Mychal Oropeza Creatinine [Mass/Vol] 1.37 mg/dL Critically high 0.70-1.30 [facility] Comment on above: Performed By: #### T SH, LIPID, CMP #### [facility] [address] [place] [address] Dr. Mychal Oropeza EGFR-AF LAO >60 Normal >=60 [facility] Comment on above: Performed By: #### T SH, LIPID, CMP #### [facility] [address] [place] [address] Dr. Mychal Oropeza EGFR-NON AF LAO 55 mL/min/1.73m2 Critically low >=60 [facility] Comment on above: Performed By: #### T AKDIE, LIPID, CMP #### [facility] [address] [address] [address] Mychal Oropeza Globulin (S) [Mass/Vol] 3.7 g/dL Normal [facility] Comment on above: Performed By: #### T KADIE, LIPID, CMP #### [facility] [address] [address] [address] Mychal Oropeza Glucose [Mass/Vol] 111 mg/dL Critically high 74-106 [facility] Comment on above: Performed By: #### T KADIE, LIPID, CMP #### [facility] [address] [place] [address] Dr. Mychal Oropeza Potassium [Moles/Vol] 3.6 mmol/L Normal 3.5-5.1 [facility] Comment on above: Performed By: #### T KADIE, LIPID, CMP #### [facility] [address] [place] [address] Dr. Mychal Oropeza Protein [Mass/Vol] 7.6 g/dL Normal 6.4-8.2 [facility] Comment on above: Performed By: #### T KADIE, LIPID, CMP #### [facility] [address] [place] [address] Dr. Mychal Oropeza Sodium [Moles/Vol] 135 mmol/L Critically low 136-145 [facility] Comment on above: Performed By: #### T KADIE, LIPID, CMP #### [facility] [address] [place] [address] Dr. Mychal Oropeza Urea nitrogen [Mass/Vol] 14.0 mg/dL Normal 7.0-18.0 [facility] Comment on above: Performed By: #### T KADIE, LIPID, CMP #### [facility] [address] [address] [address] Mychal Oropeza Urea nitrogen/Creatinine [Mass ratio] 10.2 mg/mg Normal [facility] Comment on above: Performed By: #### T KADIE, LIPID, CMP #### [facility] [address] [place], [place] [address] Dr. Mychal Oropeza TSHon 05-27-2022 TSH 2.907 uIU/mL Normal 0.358-3.740 [facility] Comment on above: Performed By: #### T SH, LIPID, CMP #### [facility] [address] [place], [place] [address] Dr. Mychal Oropeza TESTOSTERONE, TOTALon 2021 Testosterone [Mass/Vol] 324 ng/dL Normal 264-916 [facility] Comment on above: Result Comment: Adul t male reference interval is based on a population of healthy nonobese males (BMI <30) between 19 and 39 years old. bouchra Quinones.al. JCEM 2017,102;7195-1091. PMID: [id number]. Performed By: #### T ESTTOT #### [facility] [address] [address] [address] Mychal Oropeza XR SPINE CERVICAL WITH [...] fair flexion. No instability is noted. Normal [facility] XR SPINE LUMBAR W BENDINGon 02-10-2021 XR [...] good range of motion without instability. Normal [facility] XR SPINE LUMBAR W BENDINGOrd ered By: Maik Barbosa on 02-10-2021 IMPRESSION: Lumbar s pine visually is fairly well preserved. There is no evidence of fracture, listhesis, significant disc space narrowing or major degenerative changes. There is a very good range of motion without instability. [employer] EXAM: XR SPINE LUMBA R W BENDING [...] motion. There is no listhesis or instability. [facility], Interfaces - 02/10/2021 4:52 PM EDT [...] very good range of motion without instability. [facility] Vital Signs Date Time Vital Sign Value Performing Clinician Facility 08-31-2023 15:30-0500 Body height 170.18 cm Kell Bowling Other [facility] Other 08-31-2023 15:30-0500 Body mass index (BMI) [Ratio] 33.04 kg/m2 Kell Bowling Other [facility] Other 08-31-2023 15:30-0500 Body weight 95.71 kg Kell Bowling Other [facility] Other 08-31-2023 15:30-0500 Diastolic blood pressure 77 mm[Hg] Kell Bowling Other [facility] Other 08-31-2023 15:30-0500 Systolic blood pressure 119 mm[Hg] Kell Bowling Other [facility] Other 08-01-2023 08:30-0500 Body height 170.18 cm Kell Bowling Other [facility] Other 08-01-2023 08:30-0500 Body mass index (BMI) [Ratio] 35.14 kg/m2 Kell Bowling Other [facility] Other 08-01-2023 08:30-0500 Body weight 101.79 kg Kell Bowling Other [facility] Other 08-01-2023 08:30-0500 Diastolic blood pressure 82 mm[Hg] Kell Bowling Other [facility] Other 08-01-2023 08:30-0500 Systolic blood pressure 118 mm[Hg] Kell Bowling Other [facility] Other 04-16-2021 12:05-0400 Diastolic blood pressure 97 mm[Hg] Maik Barbosa MD Work Phone: [facility] 04-16-2021 12:05-0400 Heart rate 54 /min Maik Barbosa MD Work Phone: [facility] 04-16-2021 12:05-0400 Respiratory rate 16 /min Maik Barbosa MD Work Phone: [facility] 04-16-2021 12:05-0400 SaO2% (BldA) [Mass fraction] 95 % Maik Barbosa MD Work Phone: [facility] 04-16-2021 12:05-0400 Systolic blood pressure 142 mm[Hg] Maik Barbosa MD Work Phone: [facility] 03-17-2021 08:04-0400 Body height 170.2 cm Maik Barbosa MD Work Phone: [facility] 03-17-2021 08:04-0400 Body mass index (BMI) [Ratio] 34.61 kg/m2 Maik Barbosa MD Work Phone: [facility] 03-17-2021 08:04-0400 Body weight 100.25 kg Maik Barbosa MD Work Phone: [facility] 03-17-2021 08:04-0400 Diastolic blood pressure 93 mm[Hg] Maik Barbosa MD Work Phone: [facility] 03-17-2021 08:04-0400 Heart rate 74 /min Maik Barbosa MD Work Phone: [facility] 03-17-2021 08:04-0400 Respiratory rate 20 /min Maik Barbosa MD Work Phone: [facility] 03-17-2021 08:04-0400 SaO2% (BldA) [Mass fraction] 96 % Maik Barbosa MD Work Phone: [facility] 03-17-2021 08:04-0400 Systolic blood pressure 132 mm[Hg] Maik Barbosa MD Work Phone: [facility] 02-24-2021 12:02-0400 Diastolic blood pressure 100 mm[Hg] Maik Barbosa MD Work Phone: [facility] 02-24-2021 12:02-0400 Heart rate 55 /min Maik Barbosa MD Work Phone: [facility] 02-24-2021 12:02-0400 Respiratory rate 18 /min Maik Barbosa MD Work Phone: [facility] 02-24-2021 12:02-0400 SaO2% (BldA) [Mass fraction] 95 % Maik Barbosa MD Work Phone: [facility] 02-24-2021 12:02-0400 Systolic blood pressure 141 mm[Hg] Maik Barbosa MD Work Phone: [facility] 02-10-2021 11:46-0400 Body height 170.2 cm Maik Barbosa MD Work Phone: [facility] 02-10-2021 11:46-0400 Body mass index (BMI) [Ratio] 34.61 kg/m2 Maik Barbosa MD Work Phone: [facility] 02-10-2021 11:46-0400 Body weight 100.25 kg Maik Barbosa MD Work Phone: [facility] 02-10-2021 11:46-0400 Diastolic blood pressure 81 mm[Hg] Maik Barbosa MD Work Phone: [facility] 02-10-2021 11:46-0400 Heart rate 64 /min Maik Barbosa MD Work Phone: [facility] 02-10-2021 11:46-0400 Respiratory rate 18 /min Maik Barbosa MD Work Phone: [facility] 02-10-2021 11:46-0400 SaO2% (BldA) [Mass fraction] 99 % Maik Barbosa MD Work Phone: [facility] 02-10-2021 11:46-0400 Systolic blood pressure 121 mm[Hg] Maik Barbosa MD Work Phone: [facility] Encounters Encounter Date Encounter Type Care Provider Facility Start: 07-31-2024 ambulatory Chata Page Facility:[facility] Start: 08-31-2023 End: 08-31-2023 ambulatory Kell Bowling Other [facility] Other Start: 08-31-2023 Office outpatient vi sit 15 minutes Kell Bowling [facility] Start: 08-01-2023 End: 08-01-2023 ambulatory Kell Bowling Other [facility] Other Start: 08-01-2023 Encounter for genera l adult medical examination without abnormal findings Kell Bowling [facility] Start: 08-01-2023 Periodic preventive med est patient 40-64yrs Kell Bowling [facility] Start: 07-26-2023 End: 07-27-2023 ambulatory Chata [...] examination without abnormal findings DR KELL BOWLING [facility] Start: 05-27-2022 End: 05-28-[address] KELL BOWLING Facility:[facility] Start: 05-27-2022 End: 05-28-2022 Encounter for general adult medical examination without abnormal findings DR KELL BOWLING Facility:[facility] Start: 01-19-2022 End: 01-20-[address] KELL BOWLING Facility:[facility] Start: 04-16-2021 End: 04-16-2021 Patient encounter procedure Maik Barbosa MD Work Phone: [facility] Procedural Pain Management Comment on above: Lumbar spondylosis ( Primary Dx); Chronic pain syndrome; Myofascial pain Start: 03-17-2021 End: 03-17-2021 Office outpatient visit 15 minutes Maik Barbosa MD Work Phone: [facility] Comment on above: Lumbar spondylosis ( Primary Dx); Lumbar radiculopathy; Spinal stenosis of cervical region; Chronic pain syndrome; Myofascial pain Start: 02-24-2021 End: 02-24-2021 Clinical Support Encounter Maik Barbosa MD Work Phone: [facility] Comment on above: Myofascial pain (Ara reji Dx) Start: 02-10-2021 End: 02-10-2021 Subsequent hospital visit by physician Maik Barbosa MD Work Phone: [facility] Comment on above: Arrived Start: 02-10-2021 End: 02-10-2021 Office outpatient new 45 minutes Maik Barbosa MD Work Phone: [facility] Comment on above: Myofascial pain (Ara reji Dx); Arthropathy of cervical facet joint; Spondylosis of lumbar region without myelopathy or radiculopathy; Chronic pain syndrome; Compliance with medication regimen Procedures Date Procedure Procedure Detail Performing Clinician Start: 05-27-[address] KELL BOWLING Comment on above: Performed By: #### P [facility] #### [facility] [address] [place] [address] Dr. Mychal Oropeza Start: 02-10-2021 Radex spine lumbscrl compl w/bending views min 6 Maik Barbosa MD Work Phone: Plan of Treatment Date Care Activity Detail Author Start: 05-21-2021 End: 05-21-2021 Patient encounter procedure 05/21/2021 Office Visit Anesthesiology Pain Mgt Maik Barbosa MD [address] [place] [address] [facility] Start: 05-12-2021 Influenza vaccination A [facility] Start: 05-07-2021 End: 05-07-2021 Patient encounter procedure 05/07/2021 Office Visit Anesthesiology Pain Maik Carbajal MD [address] [place] [address] [facility] Start: 05-03-2021 End: 05-03-2021 Patient encounter procedure 05/03/2021 Office Visit Anesthesiology Pain Mgt Maik Barbosa MD [address] [place] [address] [facility] Start: 04-27-2021 End: 04-27-2021 Patient encounter procedure 04/27/2021 Office Visit Anesthesiology Pain Mgt Maik Barbosa MD [address] [place] [address] [facility] Start: 03-17-2021 End: 03-17-2021 Patient encounter procedure 03/17/2021 Office Visit Anesthesiology Pain Mgt Maik Barbosa MD [address] [place] [address] [phone] [facility] Start: 02-24-2021 End: 02-24-2021 Patient encounter procedure 02/24/2021 Office Visit Anesthesiology Pain Mgt Maik Barbosa MD [address] [place] [address] [facility] Start: 02-10-2021 End: 02-11-2021 DRUG SCREEN MED COMPLIANCE I DRUG SCREEN MED COMPLIANCE I Lab Routine Compliance with medication regimen Expected: 02/10/2021, Expires: 02/11/2021 [facility] Comment on above: Expected: 02/10/2021 , Expires: 02/11/2021 Start: 02-08-2020 Prostate specific antigen measurement PROSTATE CANCER SCREENING DISCUSSION [facility] Start: 02-08-2020 Zoster vaccine hzv l wilmar for subcutaneous use ZOSTER (SHINGLES) VACCINE (1 of 2) [facility] Start: 2015 Colonoscopy COLORECTAL CAN CER SCREENING DISCUSSION [facility] Start: 2010 Fasting lipid profile LIPID SCREENIN G [facility] Start: 1989 Third diphtheria, tetanus and acellular pertussis (DTaP) vaccination TDAP (ADULT) [facility] Start: 02-08-1988 Tetanus vaccination TETANUS [facility] Start: 1985 HIV screening HIV SCREENING DISCUSSI ON [facility] Start: 1982 COVID-19 VACCINE (1) COVID-19 VACCIN E (1) [facility] Start: 1970 Hepatitis C antibody , confirmatory test HEPATITIS C VIRUS SCREENING [facility] Payers Date Payer Category Payer Unknown [id number] 2019 Unknown [id number] 2018 Unknown [id number]. [id number] 1970 Unknown [id number] 2.16.84 [id number] 1970 Unknown [id number] .16.84 [id number] 1970 Unknown [id number] .16.84 [id number] 1970 Unknown [id number] 2.16.84 [id number] 1970 Unknown [id number] 2.16.84 [id number] 1970 Unknown [id number] 2.16.84 [id number] 1970 Unknown [id number] 2.16.84 [id number] 1970 Unknown [id number] 2.16.84 [id number] 1970 Unknown [id number] 2.16.8 [id number] 1970 Unknown [id number] 2.16.8 [id number] 1970 Unknown [id number] 2.16.8 [id number] 1959 Self-pay [id number] Unknown [id number] 2.16.84 [id number] Unknown [id number] Social History Date Type Detail Facility Start: 02-10-2021 End: 03-17-2021 Tobacco smoking status NHIS Never smoker [facility] Start: 02-10-2021 End: 03-17-2021 Tobacco use and exposure Never used [facility] Start: 02-10-2021 End: 03-17-2021 Alcohol intake Current drinker of alcohol (finding) [facility] Start: 02-10-2021 End: 03-17-2021 Alcohol intake [facility] Start: 02-10-2021 Alcohol Comment 5 beers/week [facility] Start: 1970 Sex Assigned At Not on file [facility] Utility Funding [facility] Sex Assigned At Sex Assigned At Bir th [facility] Other Clinical Notes 02-10-2021 to 08-31-2023 Note [...] index [BMI] 33.0-33.9, adult (ICD-10 - Z68.33) [facility] Other 11-21-2023 Evaluation note* Encounter Date Diagnosis [...] (ICD-10 - M54.50) Pt requests referral to [facility]. He hopes to lessen his use of NSAIDs to improve his renal function. Jul, Other chronic pain (ICD-10 - G89.29) Jul, JOSÉ (obstructive sleep apnea) (ICD-10 - G47.33) Form completed for [facility]. Jul, Class 2 obesity [...] to ER and Follow-up with me immediately. 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 [id number] Instructions* Patient Instructions* Geovanna Degroot RN - 04/16/2021 11:[address] [facility] Pain Management WHAT TO EXPECT AFTER A PROCEDURE Follow up appointment: Call the office ([phone]) if you have any questions or develop [...] to call us at . Thank you, [facility] History of Present illness Narrative* Maik [...] tried OTC tylenol, celebrex with somemild relief. [place] has helped in the past, but would [...] Denies dysuria or frequency documented in this [facility]07-07-2021 Instructions* Patient Instructions* Geovanna Degroot [...] when current is passed using the radiofrequency Easeli ne. This numbs the nerves. What should [...] complications are extremely rare. documented in this [facility]06-16-2021 History and physical note* Maik [...] trapezius, and lumbar paraspinal [facility] History of Present illness Narrative* Madina Summers RN - 02/24/2021 11:15 AM EDT PHYSICIAN - SCRUB - Kitty Martinez RN SANDAL PARTS ASSEMBLER - [facility] [...] Denies dysuria or frequency documented in this [facility]06-02-2021 History of Present illness Narrative* [...] Social Gatherings with Friends and Family: Attends [employer] Services: Active Member of Clubs or Organizations: [...] tried OTC tylenol, celebrex with somemild relief. [place] has helped in the past, but would [...] within the last year. documented in this [facility]06-02-2021 Instructions* Patient Instructions* Geovanna Degroot [...] read the attached handout from the [employer] [place] [employer] with guidelines and recommendations for [...] complications are extremely rare. [facility]* Diagnosis Myofascial pain- Primary Mylagia and myositis, unspecified Arthropathy of cervical facet joint Cervical spondylosis without myelopathy Spondylosis of lumbar region without myelopathy or radiculopathy Lumbosacral spondylosis without myelopathy Chronic pain syndrome Compliance with medication regimen [facility] Diagnosis Spondylosis of lumbar region without myelopathy or radiculopathy Lumbosacral spondylosis without myelopathy [facility] Diagnosis Myofascial pain- Primary Mylagia and myositis, unspecified [facility] Diagnosis Lumbar spondylosis- Primary Lumbosacral spondylosis without myelopathy Lumbar radiculopathy Thoracic or lumbosacral neuritis or radiculitis, unspecified Spinal stenosis of cervical region Spinal stenosis in cervical region Chronic pain syndrome Myofascial pain Mylagia and myositis, unspecified [facility] Diagnosis Lumbar spondylosis- Primary Lumbosacral spondylosis without myelopathy Chronic pain syndrome Myofascial pain Mylagia and myositis, unspecified [facility] N[facility]ative - Reported* Type Description Date Medical History Elevated cholesterol with elevat ed triglycerides Medical History Low serum testosterone level Medical History Lumbar pain Medical History Hypertension Medical History Diverticulosis Surgical History R shoulder arthroscopy Surgical History FB R wrist Surgical History Umbilical hernia repair 07/12/20 23 Surgical History Colonoscopy 06/25/2023 Hospitalization History SEE SURGICAL HX [facility] Other Reason for Referral Status Reason Specialty Diagnoses / Procedures Referred By Contact Referred To Contact Auth Not Needed Diagnoses Myofascial pain Chronic pain syndrome Maik Barbosa MD [address] [place] [address] Scheduling Instructions Please PA and schedule: neck and back TPI (pt will need a [address] Barbosa) Reason *FU 08/08 chronic lumbar pain, would benefit from less NSAID use. Diagnosis 1 Low back pain, unspe cified (M54.50) Referral Organization [facility] xochitl Referring Provider First Name Kell Referring Provider Last Name Tawnya Referring Provider Specialty Family Medi cine Referred Organization [facility] Referred Address [address] [place], [place],[address] Referred Provider Specialty Pain Medicin e Referral Priority Routine General Notes Es Cooper 05:14:13 PM >received today, attachments made, notes locked, referral faxed Clinical Notes f: [id number] Summary Purpose Family History No Family History [...] Chronic pain syndrome Maik Barbosa MD [address] [place] [address] Reason Comments Pain Specialty Diagnoses / Procedures Referred By Contac t Referred To Contact Diagnoses Lumbar facet arthropathy Maik Barbosa MD [address] [place] [address] Referral ID Status Reason Start Date Expiration Date Visits Re quested Visits Authorized [id number] Closed 04/14/2021 05/09/2022 1 1 (unrecognized sect ion and content) No Status Records FoundNo Status Records FoundNo Status Records Found INFORMATION SOURCE (unrecogn ized section and content) DATE CREATED AUTHOR 05/10/2021 [facility] DATE CREATED AUTHOR AUTHOR'S ORGANIZ ATION 01/13/2023 [facility] DATE CREATED AUTHOR AUTHOR'S ORGANIZ ATION 07/27/2023 [facility] Care Teams (unrecognized sec tion and content) Pit Clerk Relationship Specialty Start Date End Date Kell Bowling MD [address] [place] [address] PCP - General Family Medicine 02/10/21 FOR [...] BE BASED ON THE PRIMARY CLINICAL RECORDS. [employer] [facility] provides no warranty or guarantee of the accuracy or completeness of information in this document.
[2023-10-03 09:28] VITALS: BP 111/80; PULSE 68; RESP 16; TEMP 36.3; O2SAT 99
--- NOTE | 2023-10-03 10:05 | W.PM.PROCNOT ---
Date of procedure: 10/03/23 Pre-op diagnosis: Lumbar spondylosis Post-op diagnosis: same as pre-op Procedure: Bilateral Lumbar 4/5, 5/sacral 1 Radiofrequency ablation Under fluoroscopic guidance Rhizotomy was created using radio frequency ablation at 80?C for 90 seconds 1 to 2 lesions created at each site. Post lesioning injection of 2 mL each of 0.25% Marcaine and 2% lidocaine with Depo-Medrol 40mg. 0.5 to 1 mL injected at each site IV in place no If Intravenous fluids: NS at KVO Anesthesia local 2% lidocaine for Anesthesia Other: local Timeout process compliant After informed consent obtained.Patient brought to the procedure room placed in the prone position skin overlying the area was prepped and draped in a sterile fashion using betadine. 25 gauge needle was used to create a skin wheal over each of the targeted areas utilizing 2% lidocaine. A rhizotomy needle with a 10 mm active tip was inserted over each of the anesthetized areas and directed towards each of the medial branches accomplished under fluoroscopic guidance. after encountering the same we had positive sensory stimulation, negative motor stimulation was noted. lesions were then created. Post lesioning, steroid solution was injected needles removed. Patient was transferred to recovery room in stable condition to be discharged home after meeting criteria. Anesthesia: Local Surgeon: Adalberto James Condition: stable
[2023-10-03] MEDS: BUPIVACAINE HCL 0.25% PF 25 MG/10 ML VIAL 8 ML INJ (10:08)
[2023-10-03] MEDS: METHYLPREDNISOLONE ACETATE 40 MG/ML VIAL INJ (10:08)
[2023-10-03] MEDS: LIDOCAINE HCL 2% 400 MG/20 ML MDV 22 ML INJ (10:08)
[2023-10-03 10:28] VITALS: BP 123/79; BP 135/86; PULSE 67; PULSE 68; RESP 17; RESP 18; O2SAT 98
== END 2023-10-03 10:37 | disposition home or self-care (01) ==
PROVIDERS: PCP Family Medicine; Visit Provider Anesthesiology Pain Medicine
DX: M47.816 Spondylosis without myelopathy or radiculopathy, lumbar region (principal)
CPT/HCPCS: 64635; 64636; J0665; J1030

== ENCOUNTER 2023-10-17 11:01 | Outpatient (OUT) | payer BC, SELFPAY ==
--- NOTE | 2023-10-17 11:06 | XR_ITS ---
The [address] [address] Patient Name: AMADA ROSAS MRN: [id number] date: 1970 Sex: M Assigned Patient Location: RAD Current Patient Location: [facility] Accession/Order Number: [id number] Exam Date: 10/17/2023 11:12 Report Date: 10/17/2023 13:08 At the request of: EMELIA MORE Procedure: XR hip LT min 2V EXAM: Left hip HISTORY: . Left Hip Pain . COMPARISON: None. TECHNIQUE: 2 views FINDINGS: No fracture or dislocation of the left hip is noted. Joint spaces well-maintained. Surrounding soft tissues are unremarkable. XR/XR hip LT min 2V IMPRESSION: Negative left hip. Electronically authenticated by: CARINA ESPARZA Date: 10/17/2023 13:08
--- OUTSIDE RECORDS SUMMARY | 2023-10-17 11:20 | XMS_ITS | CCD ---
Author Name Unknown Address [address] [place] [address] Organization [facility] Care Team Providers [facility] Director Name Role Phone Kell Bowling MD Primary Care Provider [phone] TAWNYA, DR KELL Romero Primary Care Unavailable KASSIE Isidro, DR LIZBETH Donald Attending Unavaila ble KASSIE Iisdro, DR LIZBETH Donald Consulting Unavaila marilin Isidro, [...] physicia Propensity to adverse reactions 9 Comment:Done [facility] Other (2 sources) Allergies Reconciled Propensity to adverse reactions Unknown [facility] Other Medications Current Medications Medication Drug Class(es) Dates Sig (Normalized) Sig (Original) Amoxicillin (1 source) Penicillin-class Antibacterial Amoxicillin Active Atenolol / Chlorthalidone (7 sources) Thiazide-like Diuretic, beta-Adrenergic Daron Start: 08-22-2022 take 1 tablet by mouth once daily Atenolol-Chlortha lidone 50-25mg atenoloL-chlortha lidone 50-25mg, 1 (one) Tablet daily # 90, 08/22/2022, Ref. x1. Active oral daily for 90 *Pick strength-form from [employer] for eRX* Aug, Active Start: 02-05-2021 atenolol-chlor thalidone 50-25 MG tablet cyclobenzaprine hydrochloride 10 mg oral tablet (7 sources) Muscle Relaxant Start: 05-31-2022 take 1 tablet by mouth three times daily as needed cyclobenzaprine 10mg cyclobenzaprine 10mg, 1 (one) Tablet three times daily, as needed # 30, 05/31/2022, No Refill. Active oral three times daily, as needed for 0 *Reorder from [employer] for eRx and Interaction Alerts* May, Active [...] Refill. Active transdermal for 0 *Reorder from [employer] for eRx and Interaction Alerts* May, Active [...] Summaryon 1 09-25-2022 Ambulatory Visit Summary MANUEL ORSAS :1970 Visit Date:07/26/2023 Ambulatory Visit Instructions Your [...] FERMIN, Chata Inman Where: [facility] Lab Reportson 07-26-2023 Lab Reports [id number]#1.00TIFF Normal [facility] Lab Reports [id number]#1.00TI FF Normal [facility] Medication Consenton 023 Medication Consent [id number]#1.00TI FF Normal [facility] Patient Educationon 07-26-20 23 Patient Education [...] Follow these instructions at home: ? Take dsif-ekl-cgttelm and prescription medicines only as told by [...] from the medicine (more content not included)... [facility] Reminderson 07-26-2023 Reminders - From: Meme Haley To: EU - Recalls Lue; Sent: 07/26/2023 11:33:52 EST Show up: 05/26/2024 12:33:00 EDT Subject: Labs Due Date/Time: 07/26/2024 11:33:00 EST Pt will need T Level, HCT and PSA prior to appt. PSA is done by PCP. [facility] Screenson 07-26-2023 Screens [id number]#1.00TI FF [facility] Screens [id number]#1.00TI FF [facility] Urology Office/Clinic Noteon 07-26-2023 Urology Office/Clinic Note Chief Complaint 6m Testosterone Level HPI Staff 6m Testosterone Level DX: Hypogonadism, Impotence & BPH *Cialis 10mg PRN (occasionally uses 20mg) & Androgel 2 pumps qd PSA 07/05/23- 0.78 CBC/CMP 07/05/23 *BUN 21.0 & Crea 1.48 eGFR 50 *Hgb 12.3 & Hct 38.9 A1C 07/05/23- 5.8 Testosterone 07/20/23- 366 (295-012) Pt has no concerns at this time. [...] mRNA BNT-162b2 vax (more content not included)... [facility] Comment on above: Result Comment: Elec tronically Signed By: Chata Page MD\.br\Date and Time Signed: 07/26/23 08:57 EST\.br\Electronically Co-Signed By: Meme Haley\.br\Date and Time Co-Signed: 07/26/23 08:37 EST Lab Reportson 07-24-2023 Lab Reports [id number]#1.00TIF F [facility] Ambulatory Visit Summaryon 0 01-11-2023 Ambulatory Visit Summary MANUEL ROSAS :1970 Visit Date:01/11/2023 Ambulatory Visit Instructions Your Diagnosis Impotence Male hypogonadism BPH (benign prostatic hyperplasia) Tests Performed Urnls Dip Stick Auto w/o Microscopy POC 89104 Your Care Team Attending Physician - Chata [...] Chata Page MD Where: [facility] Patient Educationon 01-12-20 Patient Education [...] provider. Document Revised: 08/03/2020 Document Reviewed: 08/03/2020 [employer] Patient Education ? 2022 [employer]. Normal [facility] Screenson 01-11-2023 Screens [id number]#1.00CD :127 Normal [facility] Screens [id number]#1.00CD :127 Normal [facility] Urology Office/Clinic Noteon 01-11-2023 Urology Office/Clinic Note Chief Complaint 6 month follow up HPI Staff 6 month follow up w/testosterone level 487 done 01/06/23, previous testosterone level 410 done 06/20/22. Previous DX: BPH, impotence, male hypogonadism. Pt is currently taking Cialis 10mg PRN, and AndroGel 2 pumps daily-refill on both medications sent to [facility] in [place]. IPSS is , MAKI 22. Dysuria: denies [...] Androgel 2 pumps daily. Refill sent to [facility]. Good range and sx improvement, prior CBC [...] (more content not included)... Normal [facility] Comment on above: Result Comment: Elec tronically Signed By: Chata Page MD\.br\Date and Time Signed: 01/11/23 19:10 EDT\.br\Electronically Co-Signed By: Ericka Mcconnell.br\Date and Time Co-Signed: 01/11/23 10:32 EDT Lab Reportson 01-10-2023 Lab Reports [id number]#1.00CD: 127 Normal [facility] TESTOSTERONE, TOTALon 2022 Testosterone [Mass/Vol] 487 ng/dL Normal 264-916 [facility] Comment on above: Result Comment: Adul t male reference interval is based on a population of healthy nonobese males (BMI <30) between 19 and 39 years old. Joni et.al. JCEM 2017,102;6738-6475. PMID: 29940873. Performed By: #### T ESTTOT #### [facility] [address] [place] [address] Dr. Mychal Oropeza Pre-Certification Formon Pre-Certification Form [id number]#1.00CD: 127 Normal [facility] Pre-Certification Formon Pre-Certification Form [id number]#1.00CD: 127 Normal [facility] Pre-Certification Formon Pre-Certification Form [id number]#1.00CD: 127 Normal [facility] US SINGLE QUAD RT UPPERon US [...] by: CHRISTOFER SCHAEFFER Date: 2022-08-25 07:07 Normal [facility] Historical Records Officeon 08-19-2022 Historical Records Office [id number]#1.00CD: 127 Normal [facility] Pre-Certification Formon Pre-Certification Form [id number]#1.00CD: 127 Normal [facility] Patient Letter FTMCon 2021 Patient Letter [facility] (Inserted Image. Nga ble to display) August 18, 2022 ARMANDORAYMUNDO NOLANEL [address] [place] [address] RAYMUNDO ROSASEL 1970 Dear Whomever it may [...] Sincerely, Dr. Chata Page MD [facility] [address] [place] [address]. [place] [address] Normal [facility] TESTOSTERONE, TOTALon 2021 Testosterone [Mass/Vol] 410 ng/dL Normal 264-916 [facility] Comment on above: Result Comment: Adul t male reference interval is based on a population of healthy nonobese males (BMI <30) between 19 and 39 years old. Joni, et.al. JCEM 2017,102;9970-8638. PMID: [id number]. Performed By: #### T ESTTOT #### [facility] [address] [address] [address] Mychal Oropeza CBC AUTO DIFFon 05-27-2022 BASO # 0.1 103/ul Normal 0.0-0.1 [facility] Comment on above: Performed By: #### C BC #### [facility] [address] [place] [address] Dr. Mychal Oropeza Basophils/100 WBC (Bld) 0.9 % Normal 0.2-2.0 [facility] Comment on above: Performed By: #### C BC #### [facility] [address] [place] [address] Dr. Mychal Oropeza EO # 0.7 103/ul Normal 0.0-0.7 [facility] Comment on above: Performed By: #### C BC #### [facility] [address] [place] [address] Dr. Mychal Oropeza Eosinophils/100 WBC (Bld) 6.7 % Normal 0.9-7.0 [facility] Comment on above: Performed By: #### C BC #### [facility] [address] [place] [address] Dr. Mychal Oropeza Erythrocyte distribution width (RBC) [Ratio] 12.8 % Normal 11.0-15.0 [facility] Comment on above: Performed By: #### C BC #### [facility] [address] [place] [address] Dr. Mychal Oropeza Hematocrit (Bld) [Volume fraction] 46.9 % Normal 42.0-54.0 [facility] Comment on above: Performed By: #### C BC #### [facility] [address] [place] [address] Dr. Mychal Oropeza Hemoglobin (Bld) [Mass/Vol] 16.2 g/dL Normal 14.0-18.0 [facility] Comment on above: Performed By: #### C BC #### [facility] [address] [place] [address] Dr. Mychal Oropeza IG # 0.04 10e3/ul Critically high 0.00-0.03 [facility] Comment on above: Performed By: #### C BC #### [facility] [address] [place] [address] Dr. Mychal Oropeza IG % 0.4 % Normal 0.0-0.5 [facility] Comment on above: Performed By: #### C BC #### [facility] [address] [address] [address] Mychal Oropeza LYMPH # 4.1 103/ul Critically high 1.2-3.8 [facility] [facility] Comment on above: Performed By: #### C BC #### [facility] [address] [address] [address] Mychal Oropeza Lymphocytes/100 WBC (Bld) 37.7 % Normal 20.5-60.0 [facility] Comment on above: Performed By: #### C BC #### [facility] [address] [place] [address] Dr. Mychal Oropeza MANUAL DIFF REQ NO Normal [facility] [facility] Comment on above: Performed By: #### C BC #### [facility] [address] [place] [address] Dr. Mychal Oropeza MCH (RBC) [Entitic mass] 30.7 pg Normal 25.9-34.0 [facility] Comment on above: Performed By: #### C BC #### [facility] [address] [place] [address] Dr. Mychal Oropeza MCHC (RBC) [Mass/Vol] 34.5 g/dL Normal 29.9-35.2 [facility] Comment on above: Performed By: #### C BC #### [facility] [address] [place] [address] Dr. Mychal Oropeza MCV (RBC) [Entitic vol] 88.8 fL Normal 80.0-94.0 [facility] Comment on above: Performed By: #### C BC #### [facility] [address] [place] [address] Dr. Mychal Oropeza MONO # 0.9 103/ul Critically high 0.3-0.8 [facility] [facility] Comment on above: Performed By: #### C BC #### [facility] [address] [place] [address] Dr. Mychal Oropeza Monocytes/100 WBC (Bld) 8.1 % Normal 1.7-12.0 [facility] Comment on above: Performed By: #### C BC #### [facility] [address] [address] [address] Mychal Oropeza NEUT # 5.1 103/ul Normal 1.4-6.5 [facility] Comment on above: Performed By: #### C BC #### [facility] [address] [address] [address] Mychal Oropeza Neutrophils/100 WBC (Bld) 46.2 % Normal 43.0-75.0 [facility] Comment on above: Performed By: #### C BC #### [facility] [address] [address] [address] Mychal Oropeza Platelet mean volume (Bld) [Entitic vol] 9.7 fL Normal 9.5-13.5 [facility] Comment on above: Performed By: #### C BC #### [facility] [address] [address] [address] Mychal Oropeza PLT 308 103/ul Normal 150-450 [facility] Comment on above: Performed By: #### C BC #### [facility] [address] [address] [address] Mychal Oropeza RBC 5.28 106/ul Normal 4.70-6.10 [facility] Comment on above: Performed By: #### C BC #### [facility] [address] [address] [address] Mychal Oropeza WBC 10.9 103/ul Normal 4.0-11.0 [facility] Comment on above: Performed By: #### C BC #### [facility] [address] [address] [address] Mychal Oropeza GLYCOHEMOGLOBIN A1Con 2021 ADA RECOMMENDATION SEE BELOW Normal [facility] Comment on above: Result Comment: ADA RECOMMENDED LIMIT 4.0 - 6.0 ADA THERAPEUTIC TARGET < 7.0 ACTION SUGGESTED > 7.0 Performed By: #### A 1C #### [facility] [address] [address] [address] Mychal Oropeza Glucose [Mass/Vol] 108 mg/dL Normal [facility] Comment on above: Performed By: #### A 1C #### [facility] [address] [address] [address] Mychal Oropeza HbA1c (Bld) [Mass fraction] 5.4 % Normal 4.5-6.2 [facility] Comment on above: Performed By: #### A 1C #### [facility] [address] [address] [address] Mychal Oropeza LIPID PROFILEon 05-27-2022 CHOL-HDL RATIO NORM SEE BELOW Normal [facility] Comment on above: Result Comment: 3.3 - 4.4 LOW RISK 4.4 - 7.1 AVERAGE RISK 7.1 - 11.0 MODERATE RISK >11.0 HIGH RISK Performed By: #### T SH, LIPID, CMP #### [facility] [address] [address] [address] Mychal Oropeza Cholesterol [Mass/Vol] 207 mg/dL Critically high <=200 [facility] Comment on above: Performed By: #### T SH, LIPID, CMP #### [facility] [address] [address] [address] Mychal Oropeza Cholesterol in HDL [Mass/Vol] 47 mg/dL Normal 40-60 [facility] Comment on above: Performed By: #### T SH, LIPID, CMP #### [facility] [address] [address] [address] Mychal Oropeza Cholesterol in LDL [Mass/Vol] 122.4 mg/dL Normal [facility] Comment on above: Performed By: #### T SH, LIPID, CMP #### [facility] [address] [address] [address] Mychal Oropeza Cholesterol.total/Ch olesterol in HDL [Mass ratio] 4.4 {ratio} Normal [facility] Comment on above: Performed By: #### T SH, LIPID, CMP #### [facility] [address] [address] [address] Mychal Oropeza HDL NORMAL > or = 60 mg/dl - LO W CARDIOVASCULAR RISK <40 mg/dl - HIGH CARDIOVASCULAR RISK Normal [facility] Comment on above: Performed By: #### T SH, LIPID, CMP #### [facility] [address] [address] [address] Mychal Oropeza LDL CALC NORMAL SEE BELOW Normal [facility] [facility] Comment on above: Result Comment: <100 mg/dl OPTIMAL 100 - 129 mg/dl NEAR OR ABOVE OPTIMAL 130 - 159 mg/dl BORDERLINE HIGH 160 - 189 mg/dl HIGH >190 mg/dl VERY HIGH Performed By: #### T KADIE, LIPID, CMP #### [facility] [address] [address] [address] Mychal Oropeza Triglyceride [Mass/Vol] 188 mg/dL Critically high <=150 [facility] Comment on above: Performed By: #### T KADIE, LIPID, CMP #### [facility] [address] [address] [address] Mychal Oropeza VLDL CALC 37.6 mg/dL Normal [facility] Comment on above: Performed By: #### T KADIE, LIPID, CMP #### [facility] [address] [place] [address] Dr. Mychal Oropeza PROF 14(COMP METB)on 022 Albumin [Mass/Vol] 3.9 g/dL Normal 3.4-5.[address] [facility] Comment on above: Performed By: #### T KADIE, LIPID, CMP #### [facility] [address] [address] [address] Mychal Oropeza Albumin/Globulin [Mass ratio] 1.1 {ratio} Normal [facility] Comment on above: Performed By: #### T KADIE, LIPID, CMP #### [facility] [address] [address] [address] Mychal Oropeza ALP [Catalytic activity/Vol] 77 U/L Normal 46-116 [facility] Comment on above: Performed By: #### T KADIE, LIPID, CMP #### [facility] [address] [address] [address] Mychal Oropeza ALT [Catalytic activity/Vol] 56 U/L Normal 16-63 [facility] Comment on above: Performed By: #### T KADIE, LIPID, CMP #### [facility] [address] [address] [address] Mychal Oropeza Anion gap [Moles/Vol] 8.6 mmol/L Normal [facility] Comment on above: Performed By: #### T SH, LIPID, CMP #### [facility] [address] [place] [address] Dr. Mychal Oropeza AST [Catalytic activity/Vol] 30 U/L Normal 15-37 [facility] Comment on above: Performed By: #### T SH, LIPID, CMP #### [facility] [address] [place] [address] Dr. Mychal Oropeza Bilirubin [Mass/Vol] 0.6 mg/dL Normal 0.2-1.0 [facility] Comment on above: Performed By: #### T SH, LIPID, CMP #### [facility] [address] [place] [address] Dr. Mychal Oropeza Calcium [Mass/Vol] 9.2 mg/dL Normal 8.5-10.[address] [facility] Comment on above: Performed By: #### T SH, LIPID, CMP #### [facility] [address] [place] [address] Dr. Mychal Oropeza Chloride [Moles/Vol] 100 mmol/L Normal 98-107 [facility] Comment on above: Performed By: #### T SH, LIPID, CMP #### [facility] [address] [place] [address] Dr. Mychal Oropeza CO2 [Moles/Vol] 30.0 mmol/L Normal 21.0-32.0 [facility] Comment on above: Performed By: #### T SH, LIPID, CMP #### [facility] [address] [place] [address] Dr. Mychal Oropeza Creatinine [Mass/Vol] 1.37 mg/dL Critically high 0.70-1.30 [facility] Comment on above: Performed By: #### T SH, LIPID, CMP #### [facility] [address] [place] [address] Dr. Mychal Oropeza EGFR-AF KAZAKH >60 Normal >=60 [facility] Comment on above: Performed By: #### T SH, LIPID, CMP #### [facility] [address] [place] [address] Dr. Mychal Oropeza EGFR-NON AF KAZAKH 55 mL/min/1.73m2 Critically low >=60 [facility] Comment on above: Performed By: #### T KADIE, LIPID, CMP #### [facility] [address] [address] [address] Mychal Oropeza Globulin (S) [Mass/Vol] 3.7 g/dL Normal [facility] Comment on above: Performed By: #### T KADIE, LIPID, CMP #### [facility] [address] [address] [address] Mychal Oropeza Glucose [Mass/Vol] 111 mg/dL Critically high 74-106 [facility] Comment on above: Performed By: #### T KADIE, LIPID, CMP #### [facility] [address] [place] [address] Dr. Mychal Oropeza Potassium [Moles/Vol] 3.6 mmol/L Normal 3.5-5.1 [facility] Comment on above: Performed By: #### T KADIE, LIPID, CMP #### [facility] [address] [place] [address] Dr. Mychal Oropeza Protein [Mass/Vol] 7.6 g/dL Normal 6.4-8.[address] [facility] Comment on above: Performed By: #### T KADIE, LIPID, CMP #### [facility] [address] [place] [address] Dr. Mychal Oropeza Sodium [Moles/Vol] 135 mmol/L Critically low 136-145 [facility] Comment on above: Performed By: #### T KADIE, LIPID, CMP #### [facility] [address] [place] [address] Dr. Mychal Oropeza Urea nitrogen [Mass/Vol] 14.0 mg/dL Normal 7.0-18.0 [facility] Comment on above: Performed By: #### T KADIE, LIPID, CMP #### [facility] [address] [address] [address] Mychal Oropeza Urea nitrogen/Creatinine [Mass ratio] 10.2 mg/mg Normal [facility] Comment on above: Performed By: #### T KADIE, LIPID, CMP #### [facility] [address] [place], [place] [address] Dr. Mychal Oropeza TSHon 05-27-2022 TSH 2.907 uIU/mL Normal 0.358-3.740 [facility] Comment on above: Performed By: #### T SH, LIPID, CMP #### [facility] [address] [place], [place] [address] Dr. Mychal Oropeza TESTOSTERONE, TOTALon 2021 Testosterone [Mass/Vol] 324 ng/dL Normal 264-916 [facility] Comment on above: Result Comment: Adul t male reference interval is based on a population of healthy nonobese males (BMI <30) between 19 and 39 years old. bouchra Quinones.al. JCEM 2017,102;4875-5841. PMID: [id number]. Performed By: #### T ESTTOT #### [facility] [address] [address] [address] Mychal Oropeza XR SPINE CERVICAL WITH [...] fair flexion. No instability is noted. Normal [facility] XR SPINE LUMBAR W BENDINGon 02-10-2021 XR [...] good range of motion without instability. Normal [facility] XR SPINE LUMBAR W BENDINGOrd ered By: Maik Barbosa on 02-10-2021 IMPRESSION: Lumbar s pine visually is fairly well preserved. There is no evidence of fracture, listhesis, significant disc space narrowing or major degenerative changes. There is a very good range of motion without instability. [employer] EXAM: XR SPINE LUMBA R W BENDING [...] motion. There is no listhesis or instability. [facility] - 02/10/2021 4:52 PM EDT [...] very good range of motion without instability. [facility] Vital Signs Date Time Vital Sign Value Performing Clinician Facility 08-31-2023 15:30-0500 Body height 170.18 cm Kell Bowling Other [facility] Other 08-31-2023 15:30-0500 Body mass index (BMI) [Ratio] 33.04 kg/m2 Kell Bowling Other [facility] Other 08-31-2023 15:30-0500 Body weight 95.71 kg Kell Bowling Other [facility] Other 08-31-2023 15:30-0500 Diastolic blood pressure 77 mm[Hg] Kell Bowling Other [facility] Other 08-31-2023 15:30-0500 Systolic blood pressure 119 mm[Hg] Kell Bowling Other [facility] Other 08-01-2023 08:30-0500 Body height 170.18 cm Kell Bowling Other [facility] Other 08-01-2023 08:30-0500 Body mass index (BMI) [Ratio] 35.14 kg/m2 Kell Bowling Other [facility] Other 08-01-2023 08:30-0500 Body weight 101.79 kg Kell Bowling Other [facility] Other 08-01-2023 08:30-0500 Diastolic blood pressure 82 mm[Hg] Kell Bowling Other [facility] Other 08-01-2023 08:30-0500 Systolic blood pressure 118 mm[Hg] Kell Bowling Other [facility] Other 04-16-2021 12:05-0400 Diastolic blood pressure 97 mm[Hg] Maik Barbosa MD Work Phone: [facility] 04-16-2021 12:05-0400 Heart rate 54 /min Maik Barbosa MD Work Phone: [facility] 04-16-2021 12:05-0400 Respiratory rate 16 /min Maik Barbosa MD Work Phone: [facility] 04-16-2021 12:05-0400 SaO2% (BldA) [Mass fraction] 95 % Maik Barbosa MD Work Phone: [facility] 04-16-2021 12:05-0400 Systolic blood pressure 142 mm[Hg] Maik Barbosa MD Work Phone: [facility] 03-17-2021 08:04-0400 Body height 170.2 cm Maik Barbosa MD Work Phone: [facility] 03-17-2021 08:04-0400 Body mass index (BMI) [Ratio] 34.61 kg/m2 Maik Barbosa MD Work Phone: [facility] 03-17-2021 08:04-0400 Body weight 100.25 kg Maik Barbosa MD Work Phone: [facility] 03-17-2021 08:04-0400 Diastolic blood pressure 93 mm[Hg] Maik Barbosa MD Work Phone: [facility] 03-17-2021 08:04-0400 Heart rate 74 /min Maik Barbosa MD Work Phone: [facility] 03-17-2021 08:04-0400 Respiratory rate 20 /min Maik Barbosa MD Work Phone: [facility] 03-17-2021 08:04-0400 SaO2% (BldA) [Mass fraction] 96 % Maik Barbosa MD Work Phone: [facility] 03-17-2021 08:04-0400 Systolic blood pressure 132 mm[Hg] Maik Barbosa MD Work Phone: [facility] 02-24-2021 12:02-0400 Diastolic blood pressure 100 mm[Hg] Maik Barbosa MD Work Phone: [facility] 02-24-2021 12:02-0400 Heart rate 55 /min Maik Barbosa MD Work Phone: [facility] 02-24-2021 12:02-0400 Respiratory rate 18 /min Maik Barbosa MD Work Phone: [facility] 02-24-2021 12:02-0400 SaO2% (BldA) [Mass fraction] 95 % Maik Barbosa MD Work Phone: [facility] 02-24-2021 12:02-0400 Systolic blood pressure 141 mm[Hg] aMik Barbosa MD Work Phone: [facility] 02-10-2021 11:46-0400 Body height 170.2 cm Maik Barbosa MD Work Phone: [facility] 02-10-2021 11:46-0400 Body mass index (BMI) [Ratio] 34.61 kg/m2 Maik Barbosa MD Work Phone: [facility] 02-10-2021 11:46-0400 Body weight 100.25 kg Maik Barbosa MD Work Phone: [facility] 02-10-2021 11:46-0400 Diastolic blood pressure 81 mm[Hg] Maik Barbosa MD Work Phone: [facility] 02-10-2021 11:46-0400 Heart rate 64 /min Maik Barbosa MD Work Phone: [facility] 02-10-2021 11:46-0400 Respiratory rate 18 /min Maik Barbosa MD Work Phone: [facility] 02-10-2021 11:46-0400 SaO2% (BldA) [Mass fraction] 99 % Maik Barbosa MD Work Phone: [facility] 02-10-2021 11:46-0400 Systolic blood pressure 121 mm[Hg] Maik Barbosa MD Work Phone: [facility] Encounters Encounter Date Encounter Type Care Provider Facility Start: 07-31-2024 ambulatory Chata Page Facility:[facility] Start: 08-31-2023 End: 08-31-2023 ambulatory Kell Bowling Other [facility] Other Start: 08-31-2023 Office outpatient vi sit 15 minutes Kell Bowling [facility] Start: 08-01-2023 End: 08-01-2023 ambulatory Kell Bowling Other [facility] Other Start: 08-01-2023 Encounter for genera l adult medical examination without abnormal findings Kell Bowling [facility] Start: 08-01-2023 Periodic preventive med est patient 40-64yrs Kell Bowling [facility] Start: 07-26-2023 End: 07-27-2023 ambulatory Chata Page [...] examination without abnormal findings DR KELL BOWLING [facility] Start: 05-27-2022 End: 05-28-[address] [...] Support Encounter Maik Barbosa MD Work Phone: [facility] Comment on above: Myofascial pain (Ara reji Dx) Start: 02-10-2021 End: 02-10-2021 Subsequent hospital visit by physician Maik Barbosa MD Work Phone: [facility] Comment on above: [...] Comment on above: Performed By: #### P [facility] #### [facility] [address] [place] [address] Dr. Mychal Oropeza Start: 02-10-2021 Radex spine lumbscrl compl w/bending views min 6 Maik Barbosa MD Work Phone: Plan of Treatment Date Care Activity Detail Author Start: 05-21-2021 End: 05-21-2021 Patient encounter procedure 05/21/2021 Office Visit Anesthesiology Pain Mgt Maik Barbosa MD [address] [place] [address] [facility] Start: 05-12-2021 Influenza vaccination A [facility] Start: 05-07-2021 End: 05-07-2021 Patient encounter procedure 05/07/2021 Office Visit Anesthesiology Pain Maik Carbajal MD [address] [place] [address] [facility] Start: 05-03-2021 End: 05-03-2021 Patient encounter procedure 05/03/2021 Office Visit Anesthesiology Pain Mgt Maik Barbosa MD [address] [place] [address] [facility] Start: 04-27-2021 End: 04-27-2021 Patient encounter procedure 04/27/2021 Office Visit Anesthesiology Pain Mgt Maik Barbosa MD [address] [place] [address] [facility] Start: 03-17-2021 End: 03-17-2021 Patient encounter procedure 03/17/2021 Office Visit Anesthesiology Pain Mgt Maik Barbosa MD [address] [place] [address] [phone] [facility] Start: 02-24-2021 End: 02-24-2021 Patient encounter procedure 02/24/2021 Office Visit Anesthesiology Pain Mgt Maik Barbosa MD [address] [place] [address] [facility] Start: 02-10-2021 End: 02-11-2021 DRUG SCREEN MED COMPLIANCE I DRUG SCREEN MED COMPLIANCE I Lab Routine Compliance with medication regimen Expected: 02/10/2021, Expires: 02/11/2021 [facility] Comment on above: Expected: 02/10/2021 , Expires: 02/11/2021 Start: 02-08-2020 Prostate specific antigen measurement PROSTATE CANCER SCREENING DISCUSSION [facility] Start: 02-08-2020 Zoster vaccine hzv l wilmar for subcutaneous use ZOSTER (SHINGLES) VACCINE (1 of 2) [facility] Start: 2015 Colonoscopy COLORECTAL CAN CER SCREENING DISCUSSION [facility] Start: 2010 Fasting lipid profile LIPID SCREENIN G [facility] Start: 1989 Third diphtheria, tetanus and acellular pertussis (DTaP) vaccination TDAP (ADULT) [facility] Start: 02-08-1988 Tetanus vaccination TETANUS [facility] Start: 1985 HIV screening HIV SCREENING DISCUSSI ON [facility] Start: 1982 COVID-19 VACCINE (1) COVID-19 VACCIN E (1) [facility] Start: 1970 Hepatitis C antibody , confirmatory test HEPATITIS C VIRUS SCREENING [facility] Payers Date Payer Category Payer Unknown [id number] 2019 Unknown [id number] 2018 Unknown [id number]. [id number] 1970 Unknown [id number] 2.16.84 [id number] 1970 Unknown [id number] .[id number] [id number] 1970 Unknown [id number] .[id number] [id number] 1970 Unknown [id number] 2.16.84 [id number] 1970 Unknown [id number] 2.16.84 [id number] 1970 Unknown [id number] 2.16.84 [id number] 1970 Unknown [id number] 2.16.84 0.1.198585.3.579.2.593 1970 Unknown [id number] 2.16.84 [id number] 1970 Unknown [id number] 2.16.8 [id number] 1970 Unknown [id number] 2.16.8 [id number] 1970 Unknown [id number] 2.16.8 [id number] 1959 Self-pay [id number] Unknown [id number] 2.16.84 [id number] Unknown [id number] Social History Date Type Detail Facility Start: 02-10-2021 End: 03-17-2021 Tobacco smoking status NHIS Never smoker [facility] Start: 02-10-2021 End: 03-17-2021 Tobacco use and exposure Never used [facility] Start: 02-10-2021 End: 03-17-2021 Alcohol intake Current drinker of alcohol (finding) [facility] Start: 02-10-2021 End: 03-17-2021 Alcohol intake [facility] Start: 02-10-2021 Alcohol Comment 5 beers/week [facility] Start: 1970 Sex Assigned At Not on file A [facility] [employer] [facility] Sex Assigned At Sex Assigned At Bir th [facility] Other Clinical Notes 02-10-2021 to 08-31-2023 Note [...] index [BMI] 33.0-33.9, adult (ICD-10 - Z68.33) [facility] Other 11-21-2023 Evaluation note* Encounter Date Diagnosis [...] (ICD-10 - M54.50) Pt requests referral to [facility]. He hopes to lessen his use of NSAIDs to improve his renal function. Jul, Other chronic pain (ICD-10 - G89.29) Jul, JOSÉ (obstructive sleep apnea) (ICD-10 - G47.33) Form completed for [facility]. Jul, Class 2 obesity [...] to ER and Follow-up with me immediately. [facility] Other 08-06-2021 History and physical note* Maik [...] bilateral lumbar facet block documented in this [facility]-06-2021 History of Present illness Narrative* Humera Genao RN - 04/16/2021 11:30 AM EDT [facility] - Shellie Alaniz RN RT - RT Ilia SCIENCE TEACHER - N/A PROCESS LINE OPERATOR - Aurelio Genao RN Site cleansed [...] and earlier as needed. documented [facility] this [id number] Instructions* Patient Instructions* Geovanna Degroot RN - 04/16/2021 11:30 AM EDT [employer] [facility] WHAT TO EXPECT AFTER A PROCEDURE Follow up appointment: Call the office ([phone]) if you have any questions or develop [...] to call us at . Thank you, [facility] History of Present illness Narrative* [...] tried OTC tylenol, celebrex with somemild relief. Sesser has helped in the past, but would [...] Denies dysuria or frequency documented in this [facility]07-07-2021 Instructions* Patient Instructions* Geovanna Degroot RN [...] when current is passed using the radiofrequency [employer] ne. This numbs the nerves. What should [...] complications are extremely rare. documented in this [facility]06-16-2021 History and physical note* Maik Barbosa [...] trapezius, and lumbar paraspinal documented in this [facility]University [facility] History of Present illness Narrative* Madina Summers RN - 02/24/2021 11:15 AM EDT PHYSICIAN - [facility]CR[facility] - Kitty Martinez RN PROCESS LINE OPERATOR - [facility] Site cleansed with chloroprep. Procedure: cervical paraspinal [...] Denies dysuria or frequency documented [facility] this [facility] History of Present illness Narrative* Maik [...] Social Gatherings with Friends and Family: Attends Confucianist Services: Active Member of Clubs or Organizations: [...] tried OTC tylenol, celebrex with somemild relief. Sesser has helped in the past, but would [...] within the last year. documented in this [facility]06-02-2021 Instructions* Patient Instructions* Geovanna Degroot RN [...] read the attached handout from the [employer] [place] [employer] with guidelines and recommendations for [...] complications are extremely rare. documented in this encounterUniversity [facility] CenterEvaluation [facility]* Diagnosis Myofascial pain- Primary Mylagia and myositis, unspecified Arthropathy of cervical facet joint Cervical spondylosis without myelopathy Spondylosis of lumbar region without myelopathy or radiculopathy Lumbosacral spondylosis without myelopathy Chronic pain syndrome Compliance with medication regimen documented [facility] this encounter [facility] Diagnosis Spondylosis of lumbar region without myelopathy or radiculopathy Lumbosacral spondylosis without myelopathy [facility] Diagnosis Myofascial pain- Primary Mylagia and myositis, unspecified documented in this [facility] Diagnosis Lumbar spondylosis- Primary Lumbosacral spondylosis without myelopathy Lumbar radiculopathy Thoracic or lumbosacral neuritis or radiculitis, unspecified Spinal stenosis of cervical region Spinal stenosis in cervical region Chronic pain syndrome Myofascial pain Mylagia and myositis, unspecified documented [facility] this encounter [facility] Diagnosis Lumbar spondylosis- Primary Lumbosacral spondylosis without myelopathy Chronic pain syndrome Myofascial pain Mylagia and myositis, unspecified documented in this encounter [facility] general Narrative - Reported* Type Description Date Medical History Elevated cholesterol with elevat ed triglycerides Medical History Low serum testosterone level Medical History Lumbar pain Medical History Hypertension Medical History Diverticulosis Surgical History R shoulder arthroscopy Surgical History FB R wrist Surgical History Umbilical hernia repair 07/12/20 23 Surgical History Colonoscopy 06/25/2023 Hospitalization History SEE SURGICAL HX [facility] Other Reason for Referral Status Reason Specialty Diagnoses / Procedures Referred By Contact Referred To Contact Auth Not Needed Diagnoses Myofascial pain Chronic pain syndrome Maik Barbosa MD [address] [place] [address] Scheduling Instructions Please PA and schedule: neck and back TPI (pt will need a [address] Barbosa) Reason *FU 08/08 chronic lumbar pain, would benefit from less NSAID use. Diagnosis 1 Low back pain, unspe cified (M54.50) Referral Organization [facility] Referring Provider First Name Kell Referring Provider Last Name Tawnya Referring Provider Specialty Family Medi cine Referred Organization [facility] Referred Address [address] [place], [place],[address] Referred Provider Specialty Pain Medicin e Referral Priority Routine General Notes Es Cooper 05:14:13 PM >received today, attachments made, notes locked, referral faxed Clinical Notes f: [id number] Summary Purpose Family History No Family History [...] Chronic pain syndrome Maik Barbosa MD [address] [place] [address] Reason Comments Pain Specialty Diagnoses / Procedures Referred By Contac t Referred To Contact Diagnoses Lumbar facet arthropathy Maik Barbosa MD [address] [place] [address] Referral ID Status Reason Start Date Expiration Date Visits Re quested Visits Authorized [id number] Closed 04/14/2021 05/09/2022 1 1 (unrecognized sect ion and content) No Status Records FoundNo Status Records FoundNo Status Records Found INFORMATION SOURCE (unrecogn ized section and content) DATE CREATED AUTHOR 05/10/2021 [facility] DATE CREATED AUTHOR AUTHOR'S ORGANIZ ATION 01/13/2023 [facility] DATE CREATED AUTHOR AUTHOR'S ORGANIZ ATION 07/27/2023 [facility] (unrecognized sec tion and content) [facility] Director Relationship Specialty Start Date End Date Kell Bowling MD [address] [place] [address] PCP - General Family Medicine 02/10/21 FOR [...] BE BASED ON THE PRIMARY CLINICAL RECORDS. [facility] provides no warranty or guarantee of the accuracy or completeness of information in this document.
== END 2023-10-17 11:02 | disposition home or self-care (01) ==
LOC: RAD 11:03
PROVIDERS: PCP Family Medicine; Visit Provider Anesthesiology Pain Medicine
DX: M25.552 Pain in left hip (principal)
CPT/HCPCS: 73502

== ENCOUNTER 2023-11-02 11:17 | Outpatient (OUT) | payer BC, SELFPAY ==
--- OUTSIDE RECORDS SUMMARY | 2023-11-02 11:22 | XMS_ITS | CCD ---
Author Name Unknown Address [address] [place] [address] Organization [facility] Care Team Providers Care Operator Supply Name Role Phone Kell Bowling MD Primary [...] physicia Propensity to adverse reactions 9 Comment:Done [facility] Other (2 sources) Allergies Reconciled Propensity to adverse reactions Unknown [facility] Other Medications Current Medications Medication Drug Class(es) Dates Sig (Normalized) Sig (Original) Amoxicillin (1 source) Penicillin-class Antibacterial Amoxicillin Active Atenolol / Chlorthalidone (7 sources) Thiazide-like Diuretic, beta-Adrenergic Daron Start: 08-22-2022 take 1 tablet by mouth once daily Atenolol-Chlortha lidone 50-25mg atenoloL-chlortha lidone 50-25mg, 1 (one) Tablet daily # 90, 08/22/2022, Ref. x1. Active oral daily for 90 *Pick strength-form from Corelytics for eRX* Aug, Active Start: 02-05-2021 atenolol-chlor thalidone 50-25 MG tablet cyclobenzaprine hydrochloride 10 mg oral tablet (7 sources) Muscle Relaxant Start: 05-31-2022 take 1 tablet by mouth three times daily as needed cyclobenzaprine 10mg cyclobenzaprine 10mg, 1 (one) Tablet three times daily, as needed # 30, 05/31/2022, No Refill. Active oral three times daily, as needed for 0 *Reorder from Corelytics for eRx and Interaction Alerts* May, Active [...] Refill. Active transdermal for 0 *Reorder from Corelytics for eRx and Interaction Alerts* May, Active [...] FERMIN, Chata Inman Where: [facility] Lab Reportson 07-26-2023 Lab Reports [id number]#1.00TIFF Normal [facility] Lab Reports [id number]#1.00TI FF Normal [facility] Medication Consenton 023 Medication Consent [id number]#1.00TI FF Normal [facility] Patient Educationon 07-26-20 23 Patient [...] Follow these instructions at home: ? Take xpmi-vgl-yiveesn and prescription medicines only as told by [...] from the medicine (more content not included)... [facility] Reminderson 07-26-2023 Reminders - From: Meme Haley To: EU - Recalls Lue; Sent: 07/26/2023 11:33:52 EST Show up: 05/26/2024 12:33:00 EDT Subject: Labs Due Date/Time: 07/26/2024 11:33:00 EST Pt will need T Level, HCT and PSA prior to appt. PSA is done by PCP. [facility] Screenson 07-26-2023 Screens [id number]#1.00TI FF [facility] Screens [id number]#1.00TI FF [facility] Urology Office/Clinic Noteon 07-26-2023 Urology Office/Clinic Note Chief Complaint 6m Testosterone Level HPI Staff 6m Testosterone Level DX: Hypogonadism, Impotence & BPH *Cialis 10mg PRN (occasionally uses 20mg) & Androgel 2 pumps qd PSA 07/05/23- 0.78 CBC/CMP 07/05/23 *BUN 21.0 & Crea 1.48 eGFR 50 *Hgb 12.3 & Hct 38.9 A1C 07/05/23- 5.8 Testosterone 07/20/23- 366 (565-506) Pt has no concerns at this time. [...] mRNA BNT-162b2 vax (more content not included)... [facility] Comment on above: Result Comment: Elec tronically Signed By: Chata Page MD\.br\Date and Time Signed: 07/26/23 08:57 EST\.br\Electronically Co-Signed By: Meme Haley\.br\Date and Time Co-Signed: 07/26/23 08:37 EST Lab Reportson 07-24-2023 Lab Reports [id number]#1.00TIF F [facility] Ambulatory Visit Summaryon 0 01-11-2023 Ambulatory Visit Summary MANUEL ROSAS :1970 Visit Date:01/11/2023 Ambulatory Visit Instructions Your Diagnosis Impotence Male hypogonadism BPH (benign prostatic hyperplasia) Tests Performed Urnls Dip Stick Auto w/o Microscopy POC [id number] Your Care Team Attending Physician - Chata [...] Chata Page MD Where: [facility] Patient Educationon 01-12-20 Patient Education Urology Testicular [...] provider. Document Revised: 08/03/2020 Document Reviewed: 08/03/2020 [employer] Patient Education ? 2022 Experience Headphones. Normal [facility] Screenson 01-11-2023 Screens [id number]#1.00CD :127 Normal [facility] Screens [id number]#1.00CD :127 Normal [facility] Urology Office/Clinic Noteon 01-11-2023 Urology Office/Clinic Note Chief Complaint 6 month follow up HPI Staff 6 month follow up w/testosterone level 487 done 01/06/23, previous testosterone level 410 done 06/20/22. Previous DX: BPH, impotence, male hypogonadism. Pt is currently taking Cialis 10mg PRN, and AndroGel 2 pumps daily-refill on both medications sent to [facility] in [place]. IPSS is , MAKI 22. Dysuria: denies [...] Androgel 2 pumps daily. Refill sent to [facility]. Good range and sx improvement, prior CBC [...] Urine Dips (more content not included)... Normal [facility] Comment on above: Result Comment: Elec tronically Signed By: Chata Page MD\.br\Date and Time Signed: 01/11/23 19:10 EDT\.br\Electronically Co-Signed By: Ericka Mcconnell.br\Date and Time Co-Signed: 01/11/23 10:32 EDT Lab Reportson 01-10-2023 Lab Reports [id number]#1.00CD: 127 Normal [facility] TESTOSTERONE, TOTALon 2022 Testosterone [Mass/Vol] 487 ng/dL Normal 264-916 [facility] Comment on above: Result Comment: Adul t male reference interval is based on a population of healthy nonobese males (BMI <30) between 19 and 39 years old. Joni et.al. JCEM 2017,102;8024-4990. PMID: 26493103. Performed By: #### T ESTTOT #### [facility] [address] [place] [address] Dr. Mychal Oropeza Pre-Certification Formon Pre-Certification Form [id number]#1.00CD: 127 Normal [facility] Pre-Certification Formon Pre-Certification Form [id number]#1.00CD: 127 Normal [facility] Pre-Certification Formon Pre-Certification Form [id number]#1.00CD: 127 Normal [facility] US SINGLE QUAD RT UPPERon [...] by: CHRISTOFER SCHAEFFER Date: 2022-08-25 07:07 Normal [facility] Historical Records Officeon 08-19-2022 Historical Records Office [id number]#1.00CD: 127 Normal [facility] Pre-Certification Formon Pre-Certification Form [id number]#1.00CD: 127 Normal [facility] Patient Letter FTMCon 2021 Patient Letter [facility] (Inserted Image. Nga ble to display) August 18, 2022 ARM[address]AYMUNDO [address]OL[address] [place] [address] RAYMUNDO ROSASEL 1970 Dear Whomever it may [...] Sincerely, Dr. Chata Page MD [facility] [address] [place] [address]. [place] [address] Normal [facility] TESTOSTERONE, TOTALon 2021 Testosterone [Mass/Vol] 410 ng/dL Normal 264-916 [facility] Comment on above: Result Comment: Adul t male reference interval is based on a population of healthy nonobese males (BMI <30) between 19 and 39 years old. Joni, et.al. JCEM 2017,102;3401-1612. PMID: 18779119. Performed By: #### T ESTTOT #### [facility] [address] [address] [address] Mychal Oropeza CBC AUTO DIFFon 05-27-2022 BASO # 0.1 103/ul Normal 0.0-0.1 [facility] Comment on above: Performed By: #### C BC #### [facility] [address] [place] [address] Dr. Mychal Oropeza Basophils/100 WBC (Bld) 0.9 % Normal 0.2-2.0 [facility] Comment on above: Performed By: #### C BC #### [facility] [address] [place] [address] Dr. Mychal Oropeza EO # 0.7 103/ul Normal 0.0-0.7 [facility] Comment on above: Performed By: #### C BC #### [facility] [address] [place] [address] Dr. Mychal Oropeza Eosinophils/100 WBC (Bld) 6.7 % Normal 0.9-7.0 [facility] Comment on above: Performed By: #### C BC #### [facility] [address] [place] [address] Dr. Mychal Oropeza Erythrocyte distribution width (RBC) [Ratio] 12.8 % Normal 11.0-15.0 [facility] Comment on above: Performed By: #### C BC #### [facility] [address] [place] [address] Dr. Mychal Oropeza Hematocrit (Bld) [Volume fraction] 46.9 % Normal 42.0-54.0 [facility] Comment on above: Performed By: #### C BC #### [facility] [address] [place] [address] Dr. Mychal Oropeza Hemoglobin (Bld) [Mass/Vol] 16.2 g/dL Normal 14.0-18.0 [facility] Comment on above: Performed By: #### C BC #### [facility] [address] [place] [address] Dr. Mychal Oropeza IG # 0.04 10e3/ul Critically high 0.00-0.03 [facility] Comment on above: Performed By: #### C BC #### [facility] [address] [place] [address] Dr. Mychal Oropeza IG % 0.4 % Normal 0.0-0.5 [facility] Comment on above: Performed By: #### C BC #### [facility] [address] [address] [address] Mychal Oropeza LYMPH # 4.1 103/ul Critically high 1.2-3.8 [facility] Comment on above: Performed By: #### C BC #### [facility] [address] [address] [address] Mychal Oropeza Lymphocytes/100 WBC (Bld) 37.7 % Normal 20.5-60.0 [facility] Comment on above: Performed By: #### C BC #### [facility] [address] [place] [address] Dr. Mychal Oropeza MANUAL DIFF REQ NO Normal [facility] Comment on above: Performed By: #### C BC #### [facility] [address] [place] [address] Dr. Mychal Oropeza MCH (RBC) [Entitic mass] 30.7 pg Normal 25.9-34.0 [facility] Comment on above: Performed By: #### C BC #### [facility] [address] [place] [address] Dr. Mychal Oropeza MCHC (RBC) [Mass/Vol] 34.5 g/dL Normal 29.9-35.2 [facility] Comment on above: Performed By: #### C BC #### [facility] [address] [place] [address] Dr. Mychal Oropeza MCV (RBC) [Entitic vol] 88.8 fL Normal 80.0-94.0 [facility] Comment on above: Performed By: #### C BC #### [facility] [address] [place] [address] Dr. Mychal Oropeza MONO # 0.9 103/ul Critically high 0.3-0.8 [facility] Comment on above: Performed By: #### C BC #### [facility] [address] [place] [address] Dr. Mychal Oropeza Monocytes/100 WBC (Bld) 8.1 % Normal 1.7-12.0 [facility] Comment on above: Performed By: #### C BC #### [facility] [address] [address] [address] Mychal Oropeza NEUT # 5.1 103/ul Normal 1.4-6.5 [facility] Comment on above: Performed By: #### C BC #### [facility] [address] [address] [address] Mychal Oropeza Neutrophils/100 WBC (Bld) 46.2 % Normal 43.0-75.0 [facility] Comment on above: Performed By: #### C BC #### [facility] [address] [address] [address] Mychal Oropeza Platelet mean volume (Bld) [Entitic vol] 9.7 fL Normal 9.5-13.5 [facility] Comment on above: Performed By: #### C BC #### [facility] [address] [address] [address] Mychal Oropeza PLT 308 103/ul Normal 150-450 [facility] Comment on above: Performed By: #### C BC #### [facility] [address] [address] [address] Mychal Oropeza RBC 5.28 106/ul Normal 4.70-6.10 [facility] Comment on above: Performed By: #### C BC #### [facility] [address] [address] [address] Mychal Oropeza WBC 10.9 103/ul Normal 4.0-11.0 [facility] Comment on above: Performed By: #### C BC #### [facility] [address] [address] [address] Mychal Oropeza GLYCOHEMOGLOBIN A1Con 2021 ADA RECOMMENDATION SEE BELOW Normal [facility] Comment on above: Result Comment: ADA RECOMMENDED LIMIT 4.0 - 6.0 ADA THERAPEUTIC TARGET < 7.0 ACTION SUGGESTED > 7.0 Performed By: #### A 1C #### [facility] [address] [address] [address] Mychal Oropeza Glucose [Mass/Vol] 108 mg/dL Normal [facility] Comment on above: Performed By: #### A 1C #### [facility] [address] [address] [address] Mychal Oropeza HbA1c (Bld) [Mass fraction] 5.4 % Normal 4.5-6.2 [facility] Comment on above: Performed By: #### A 1C #### [facility] [address] [address] [address] Mychal Oropeza LIPID PROFILEon 05-27-2022 CHOL-HDL RATIO NORM SEE BELOW Normal [facility] Comment on above: Result Comment: 3.3 - 4.4 LOW RISK 4.4 - 7.1 AVERAGE RISK 7.1 - 11.0 MODERATE RISK >11.0 HIGH RISK Performed By: #### T SH, LIPID, CMP #### [facility] [address] [address] [address] Mychal Oropeza Cholesterol [Mass/Vol] 207 mg/dL Critically high <=200 [facility] Comment on above: Performed By: #### T SH, LIPID, CMP #### [facility] [address] [address] [address] Mychal Oropeza Cholesterol in HDL [Mass/Vol] 47 mg/dL Normal 40-60 [facility] Comment on above: Performed By: #### T SH, LIPID, CMP #### [facility] [address] [address] [address] Mychal Oropeza Cholesterol in LDL [Mass/Vol] 122.4 mg/dL Normal [facility] Comment on above: Performed By: #### T SH, LIPID, CMP #### [facility] [address] [address] [address] Mychal Oropeza Cholesterol.total/Ch olesterol in HDL [Mass ratio] 4.4 {ratio} Normal [facility] Comment on above: Performed By: #### T SH, LIPID, CMP #### [facility] [address] [address] [address] Mychal Oropeza HDL NORMAL > or = 60 mg/dl - LO W CARDIOVASCULAR RISK <40 mg/dl - HIGH CARDIOVASCULAR RISK Normal [facility] Comment on above: Performed By: #### T SH, LIPID, CMP #### [facility] [address] [address] [address] Mychal Oropeza LDL CALC NORMAL SEE BELOW Normal [facility] Comment on above: Result Comment: <100 mg/dl OPTIMAL 100 - 129 mg/dl NEAR OR ABOVE OPTIMAL 130 - 159 mg/dl BORDERLINE HIGH 160 - 189 mg/dl HIGH >190 mg/dl VERY HIGH Performed By: #### T KADIE, LIPID, CMP #### [facility] [address] [address] [address] Mychal Oropeza Triglyceride [Mass/Vol] 188 mg/dL Critically high <=150 [facility] Comment on above: Performed By: #### T KADIE, LIPID, CMP #### [facility] [address] [address] [address] Mychal Oropeza VLDL CALC 37.6 mg/dL Normal [facility] Comment on above: Performed By: #### T KADIE, LIPID, CMP #### [facility] [address] [place] [address] Dr. Mychal Oropeza PROF 14(COMP METB)on 022 Albumin [Mass/Vol] 3.9 g/dL Normal 3.4-5.0 [facility] Comment on above: Performed By: #### T KADIE, LIPID, CMP #### [facility] [address] [address] [address] Mychal Oropeza Albumin/Globulin [Mass ratio] 1.1 {ratio} Normal [facility] Comment on above: Performed By: #### T KADIE, LIPID, CMP #### [facility] [address] [address] [address] Mychal Oropeza ALP [Catalytic activity/Vol] 77 U/L Normal 46-116 [facility] Comment on above: Performed By: #### T KADIE, LIPID, CMP #### [facility] [address] [address] [address] Mychal Oropeza ALT [Catalytic activity/Vol] 56 U/L Normal 16-63 [facility] Comment on above: Performed By: #### T KADIE, LIPID, CMP #### [facility] [address] [address] [address] Mychal Oropeza Anion gap [Moles/Vol] 8.6 mmol/L Normal [facility] Comment on above: Performed By: #### T SH, LIPID, CMP #### [facility] [address] [place] [address] Dr. Mychal Oropeza AST [Catalytic activity/Vol] 30 U/L Normal 15-37 [facility] Comment on above: Performed By: #### T SH, LIPID, CMP #### [facility] [address] [place] [address] Dr. Mychal Oropeza Bilirubin [Mass/Vol] 0.6 mg/dL Normal 0.2-1.0 [facility] Comment on above: Performed By: #### T SH, LIPID, CMP #### [facility] [address] [place] [address] Dr. Mychal Oropeza Calcium [Mass/Vol] 9.2 mg/dL Normal 8.5-10.1 [facility] Comment on above: Performed By: #### T SH, LIPID, CMP #### [facility] [address] [place] [address] Dr. Mychal Oropeza Chloride [Moles/Vol] 100 mmol/L Normal 98-107 [facility] Comment on above: Performed By: #### T SH, LIPID, CMP #### [facility] [address] [place] [address] Dr. Mychal Oropeza CO2 [Moles/Vol] 30.0 mmol/L Normal 21.0-32.0 [facility] Comment on above: Performed By: #### T SH, LIPID, CMP #### [facility] [address] [place] [address] Dr. Mychal Oropeza Creatinine [Mass/Vol] 1.37 mg/dL Critically high 0.70-1.30 [facility] Comment on above: Performed By: #### T SH, LIPID, CMP #### [facility] [address] [place] [address] Dr. Mychal Oropeza EGFR-AF PANAMANIAN >60 Normal >=60 [facility] Comment on above: Performed By: #### T SH, LIPID, CMP #### [facility] [address] [place] [address] Dr. Mychal Oropeza EGFR-NON AF PANAMANIAN 55 mL/min/1.73m2 Critically low >=60 [facility] Comment on above: Performed By: #### T KADIE, LIPID, CMP #### [facility] [address] [address] [address] Mychal Oropeza Globulin (S) [Mass/Vol] 3.7 g/dL Normal [facility] Comment on above: Performed By: #### T KADIE, LIPID, CMP #### [facility] [address] [address] [address] Mychal Oropeza Glucose [Mass/Vol] 111 mg/dL Critically high 74-106 [facility] Comment on above: Performed By: #### T KADIE, LIPID, CMP #### [facility] [address] [place] [address] Dr. Mychal Oropeza Potassium [Moles/Vol] 3.6 mmol/L Normal 3.5-5.1 [facility] Comment on above: Performed By: #### T KADIE, LIPID, CMP #### [facility] [address] [place] [address] Dr. Mychal Oropeza Protein [Mass/Vol] 7.6 g/dL Normal 6.4-8.2 [facility] Comment on above: Performed By: #### T KADIE, LIPID, CMP #### [facility] [address] [place] [address] Dr. Mychal Oropeza Sodium [Moles/Vol] 135 mmol/L Critically low 136-145 [facility] Comment on above: Performed By: #### T KADIE, LIPID, CMP #### [facility] [address] [place] [address] Dr. Mychal Oropeza Urea nitrogen [Mass/Vol] 14.0 mg/dL Normal 7.0-18.0 [facility] Comment on above: Performed By: #### T KADIE, LIPID, CMP #### [facility] [address] [address] [address] Mychal Oropeza Urea nitrogen/Creatinine [Mass ratio] 10.2 mg/mg Normal [facility] Comment on above: Performed By: #### T KADIE, LIPID, CMP #### [facility] [address] [place], [place] [address] Dr. Mychal Oropeza TSHon 05-27-2022 TSH 2.907 uIU/mL Normal 0.358-3.740 [facility] Comment on above: Performed By: #### T SH, LIPID, CMP #### [facility] [address] [place], [place] [address] Dr. Mychal Oropeza TESTOSTERONE, TOTALon 2021 Testosterone [Mass/Vol] 324 ng/dL Normal 264-916 [facility] Comment on above: Result Comment: Adul t male reference interval is based on a population of healthy nonobese males (BMI <30) between 19 and 39 years old. bouchra Quinones.al. JCEM 2017,102;9379-7919. PMID: 39168700. Performed By: #### T ESTTOT #### [facility] [address] [address] [address] Mychal Oropeza XR SPINE CERVICAL WITH [...] fair flexion. No instability is noted. Normal [facility] XR SPINE LUMBAR W BENDINGon 02-10-2021 [...] good range of motion without instability. Normal [facility] XR SPINE LUMBAR W BENDINGOrd ered By: Maik Barbosa on 02-10-2021 IMPRESSION: Lumbar s pine visually is fairly well preserved. There is no evidence of fracture, listhesis, significant disc space narrowing or major degenerative changes. There is a very good range of motion without instability. [employer] EXAM: XR SPINE LUMBA R W [...] motion. There is no listhesis or instability. [facility] User, Interfaces - 02/10/2021 4:52 PM EDT [...] very good range of motion without instability. [employer] Vital Signs Date Time Vital Sign Value Performing Clinician Facility 08-31-2023 15:30-0500 Body height 170.18 cm Kell Bowling Other [facility] Other 08-31-2023 15:30-0500 Body mass index (BMI) [Ratio] 33.04 kg/m2 Kell Bowling Other [facility] Other 08-31-2023 15:30-0500 Body weight 95.71 kg Kell Bowling Other [facility] Other 08-31-2023 15:30-0500 Diastolic blood pressure 77 mm[Hg] Kell Bowling Other [facility] Other 08-31-2023 15:30-0500 Systolic blood pressure 119 mm[Hg] Kell Bowling Other [facility] Other 08-01-2023 08:30-0500 Body height 170.18 cm Kell Bowling Other [facility] Other 08-01-2023 08:30-0500 Body mass index (BMI) [Ratio] 35.14 kg/m2 Kell Bowling Other [facility] Other 08-01-2023 08:30-0500 Body weight 101.79 kg Kell Bowling Other [facility] Other 08-01-2023 08:30-0500 Diastolic blood pressure 82 mm[Hg] Kell Bowling Other [facility] Other 08-01-2023 08:30-0500 Systolic blood pressure 118 mm[Hg] Kell Bowling Other [facility] Other 04-16-2021 12:05-0400 Diastolic blood pressure 97 mm[Hg] Maik Barbosa MD Work Phone: [facility] 04-16-2021 12:05-0400 Heart rate 54 /min Maik Barbosa MD Work Phone: [facility] 04-16-2021 12:05-0400 Respiratory rate 16 /min Maik Barbosa MD Work Phone: [facility] 04-16-2021 12:05-0400 SaO2% (BldA) [Mass fraction] 95 % Maik Barbosa MD Work Phone: [facility] 04-16-2021 12:05-0400 Systolic blood pressure 142 mm[Hg] Maik Barbosa MD Work Phone: [facility] 03-17-2021 08:04-0400 Body height 170.2 cm Maik Barbosa MD Work Phone: [facility] 03-17-2021 08:04-0400 Body mass index (BMI) [Ratio] 34.61 kg/m2 Maik Barbosa MD Work Phone: [facility] 03-17-2021 08:04-0400 Body weight 100.25 kg Maik Barbosa MD Work Phone: [facility] 03-17-2021 08:04-0400 Diastolic blood pressure 93 mm[Hg] Maik Barbosa MD Work Phone: [facility] 03-17-2021 08:04-0400 Heart rate 74 /min Maik Barbosa MD Work Phone: [facility] 03-17-2021 08:04-0400 Respiratory rate 20 /min Maik Barbosa MD Work Phone: [facility] 03-17-2021 08:04-0400 SaO2% (BldA) [Mass fraction] 96 % Maik Barbosa MD Work Phone: [facility] 03-17-2021 08:04-0400 Systolic blood pressure 132 mm[Hg] Maik Barbosa MD Work Phone: [facility] 02-24-2021 12:02-0400 Diastolic blood pressure 100 mm[Hg] Maik Barbosa MD Work Phone: [facility] 02-24-2021 12:02-0400 Heart rate 55 /min Maik Barbosa MD Work Phone: [facility] 02-24-2021 12:02-0400 Respiratory rate 18 /min Maik Barbosa MD Work Phone: [facility] 02-24-2021 12:02-0400 SaO2% (BldA) [Mass fraction] 95 % Maik Barbosa MD Work Phone: [facility] 02-24-2021 12:02-0400 Systolic blood pressure 141 mm[Hg] Maik Barbosa MD Work Phone: [facility] 02-10-2021 11:46-0400 Body height 170.2 cm Maik Barbosa MD Work Phone: [facility] 02-10-2021 11:46-0400 Body mass index (BMI) [Ratio] 34.61 kg/m2 Maik Barbosa MD Work Phone: [facility] 02-10-2021 11:46-0400 Body weight 100.25 kg Maik Barbosa MD Work Phone: [facility] 02-10-2021 11:46-0400 Diastolic blood pressure 81 mm[Hg] Maik Barbosa MD Work Phone: [facility] 02-10-2021 11:46-0400 Heart rate 64 /min Maik Barbosa MD Work Phone: [facility] 02-10-2021 11:46-0400 Respiratory rate 18 /min Maik Barbosa MD Work Phone: [facility] 02-10-2021 11:46-0400 SaO2% (BldA) [Mass fraction] 99 % Maik Barbosa MD Work Phone: [facility] 02-10-2021 11:46-0400 Systolic blood pressure 121 mm[Hg] Maik Barbosa MD Work Phone: [facility] Encounters Encounter Date Encounter Type Care Provider Facility Start: 07-31-2024 ambulatory Chata Page Facility:[facility] Start: 08-31-2023 End: 08-31-2023 ambulatory Kell Bowling Other [facility] Other Start: 08-31-2023 Office outpatient vi sit 15 minutes Kell Bowling [facility] Start: 08-01-2023 End: 08-01-2023 ambulatory Kell Bowling Other [facility] Other Start: 08-01-2023 Encounter for genera l adult medical examination without abnormal findings Kell Bowling [facility] Start: 08-01-2023 Periodic preventive med est patient 40-64yrs Kell Bowling [facility] Start: 07-26-2023 End: 07-27-2023 ambulatory Chata Page Facility:[facility] Start: 01-11-2023 End: 01-12-2023 ambulatory Chata Page Facility:[facility] Start: 01-06-2023 End: 01-07-[address] [...] examination without abnormal findings DR KELL BOWLING [facility] Start: 05-27-2022 End: 05-28-[address] KELL BOWLING Facility:[facility] Start: 05-27-2022 End: 05-28-2022 Encounter for general adult medical examination without abnormal findings DR KELL BOWLING Facility:[facility] Start: 01-19-2022 End: 01-20-[address] KELL BOWLING Facility:[facility] Start: 04-16-2021 End: 04-16-2021 Patient encounter procedure Maik Barbosa MD Work Phone: [facility] Comment on above: Lumbar spondylosis ( Primary Dx); Chronic pain syndrome; Myofascial pain Start: 03-17-2021 End: 03-17-2021 Office outpatient visit 15 minutes Maik Barbosa MD Work Phone: [facility] Comment on above: Lumbar spondylosis ( Primary Dx); Lumbar radiculopathy; Spinal stenosis of cervical region; Chronic pain syndrome; Myofascial pain Start: 02-24-2021 End: 02-24-2021 Clinical Support Encounter Maik Barbosa MD Work Phone: [facility] Comment on above: Myofascial pain (Ara reji Dx) Start: 02-10-2021 End: 02-10-2021 Subsequent hospital visit by physician Maik Barbosa MD Work Phone: [facility] Comment on above: Arrived Start: 02-10-2021 End: 02-10-2021 Office outpatient new 45 minutes Maik Barbosa MD Work Phone: [facility] Comment on above: Myofascial pain (Ara reji Dx); Arthropathy of cervical facet joint; Spondylosis of lumbar region without myelopathy or radiculopathy; Chronic pain syndrome; Compliance with medication regimen Procedures Date Procedure Procedure Detail Performing Clinician Start: 05-27-[address] KELL BOWLING Comment on above: Performed By: #### [facility] #### [facility] [address] [place] [address] Dr. Mychal Oropeza Start: 02-10-2021 Radex spine lumbscrl compl w/bending views min 6 Maik Barbosa MD Work Phone: Plan of Treatment Date Care Activity Detail Author Start: 05-21-2021 End: 05-21-2021 Patient encounter procedure 05/21/2021 Office Visit Anesthesiology Pain Mgt Maik Barbosa MD [address] [place] [address] [facility] Start: 05-12-2021 Influenza vaccination A [facility] Start: 05-07-2021 End: 05-07-2021 Patient encounter procedure 05/07/2021 Office Visit Anesthesiology Pain Maik Carbajal MD [address] [place] [address] [facility] Start: 05-03-2021 End: 05-03-2021 Patient encounter procedure 05/03/2021 Office Visit Anesthesiology Pain Mgt Maik Barbosa MD [address] [place] [address] [facility] Start: 04-27-2021 End: 04-27-2021 Patient encounter procedure 04/27/2021 Office Visit Anesthesiology Pain Mgt Maik Barbosa MD [address] [place] [address] [facility] Start: 03-17-2021 End: 03-17-2021 Patient encounter procedure 03/17/2021 Office Visit Anesthesiology Pain Mgt Maik Barbosa MD [address] [place] [address] [phone] [facility] Start: 02-24-2021 End: 02-24-2021 Patient encounter procedure 02/24/2021 Office Visit Anesthesiology Pain Mgt Maik Barbosa MD [address] [place] [address] [facility] Start: 02-10-2021 End: 02-11-2021 DRUG SCREEN MED COMPLIANCE I DRUG SCREEN MED COMPLIANCE I Lab Routine Compliance with medication regimen Expected: 02/10/2021, Expires: 02/11/2021 [facility] Comment on above: Expected: 02/10/2021 , Expires: 02/11/2021 Start: 02-08-2020 Prostate specific antigen measurement PROSTATE CANCER SCREENING DISCUSSION [facility] Start: 02-08-2020 Zoster vaccine hzv l wilmar for subcutaneous use ZOSTER (SHINGLES) VACCINE (1 of 2) [facility] Start: 2015 Colonoscopy COLORECTAL CAN CER SCREENING DISCUSSION [facility] Start: 2010 Fasting lipid profile LIPID SCREENIN G [facility] Start: 1989 Third diphtheria, tetanus and acellular pertussis (DTaP) vaccination TDAP (ADULT) [facility] Start: 02-08-1988 Tetanus vaccination TETANUS [facility] Start: 1985 HIV screening HIV SCREENING DISCUSSI ON [facility] Start: 1982 COVID-19 VACCINE (1) COVID-19 VACCIN E (1) [facility] Start: 1970 Hepatitis C antibody , confirmatory test HEPATITIS C VIRUS SCREENING [facility] Payers Date Payer Category Payer Unknown [id number] 2019 Unknown [id number] 2018 Unknown [id number]. [id number] 1970 Unknown [id number] 2.16.84 [id number] 1970 Unknown [id number] .16.84 [id number] 1970 Unknown [id number] .16.84 [id number] 1970 Unknown [id number] 2.16.84 [id number] 1970 Unknown [id number] 2.16.84 [id number] 1970 Unknown [id number] 2.16.84 [id number] 1970 Unknown [id number] 2.16.84 [id number] 1970 Unknown [id number] 2.16.84 [id number] 1970 Unknown [id number] 2.16.8 [id number] 1970 Unknown [id number] 2.16.8 [id number] 1970 Unknown [id number] 2.16.8 [id number] 1959 Self-pay [id number] Unknown [id number] 2.16.84 [id number] Unknown [id number] Social History Date Type Detail Facility Start: 02-10-2021 End: 03-17-2021 Tobacco smoking status NHIS Never smoker [facility] Start: 02-10-2021 End: 03-17-2021 Tobacco use and exposure Never used [facility] Start: 02-10-2021 End: 03-17-2021 Alcohol intake Current drinker of alcohol (finding) [facility] Start: 02-10-2021 End: 03-17-2021 Alcohol intake [facility] Start: 02-10-2021 Alcohol Comment 5 beers/week [facility] Start: 1970 Sex Assigned At Not on file A [facility]N [facility] Sex Assigned At Sex Assigned At Bir th [facility] Other Clinical Notes 02-10-2021 to 08-31-2023 Note [...] index [BMI] 33.0-33.9, adult (ICD-10 - Z68.33) [facility] Other 11-21-2023 Evaluation note* Encounter Date Diagnosis [...] (ICD-10 - M54.50) Pt requests referral to [facility]. He hopes to lessen his use of NSAIDs to improve his renal function. Jul, Other chronic pain (ICD-10 - G89.29) Jul, JOSÉ (obstructive sleep apnea) (ICD-10 - G47.33) Form completed for [facility]. Jul, Class 2 obesity [...] to ER and Follow-up with me immediately. [facility] Other 08-06-2021 History and physical note* Maik [...] bilateral lumbar facet block documented in this [facility]08-06-2021 History of Present illness Narrative* Humera Genao RN - 04/16/2021 11:30 AM EDT SCRUB - Shellie Alaniz RN RT - RT Ilia GI TECH - N/A [employer]ADITIONAL CHINESE HERBALIST - Aurelio Genao RN Site cleansed with [...] and earlier as needed. [id number] Instructions* Patient Instructions* Geovanna Degroot RN - 04/16/2021 11:30 AM EDT [facility] Pain [facility] WHAT TO EXPECT AFTER A PROCEDURE Follow up appointment: Call the office ([phone]) if you have any questions or develop [...] to call us at . Thank you, [facility] History of Present illness Narrative* [...] tried OTC tylenol, celebrex with somemild relief. Aurora has helped in the past, but would [...] Denies dysuria or frequency documented in this [facility]07-07-2021 Instructions* Patient Instructions* Geovanna Degroot RN [...] when current is passed using the radiofrequency Bonushi ne. This numbs the nerves. What should [...] complications are extremely rare. documented in this [facility]06-16-2021 History and physical note* Maik Barbosa [...] lumbar paraspinal documented in this [facility]University [facility] History of Present illness Narrative* Madina Summers RN - 02/24/2021 11:15 AM EDT PHYSICIAN - SCRUB - Kitty Martinez RN TRADITIONAL CHINESE HERBALIST - [facility] Site cleansed with chloroprep. Procedure: cervical paraspinal [...] Denies dysuria or frequency documented in this [facility]06-02-2021 History of Present illness Narrative* Maik [...] Social Gatherings with Friends and Family: Attends Bahai Services: Active Member of Clubs or Organizations: [...] tried OTC tylenol, celebrex with somemild relief. [facility] has helped in the past, but would [...] within the last year. documented in this [facility]06-02-2021 Instructions* Patient Instructions* Geovanna Degroot RN [...] read the attached handout from the [employer] with guidelines and recommendations for [...] extremely rare. documented in this encounterUniversity [facility] CenterEvaluation note* Diagnosis Myofascial pain- Primary Mylagia and myositis, unspecified Arthropathy of cervical facet joint Cervical spondylosis without myelopathy Spondylosis of lumbar region without myelopathy or radiculopathy Lumbosacral spondylosis without myelopathy Chronic pain syndrome Compliance with medication regimen documented [facility] this [facility] Diagnosis Spondylosis of lumbar region without myelopathy or radiculopathy Lumbosacral spondylosis without myelopathy [facility] Diagnosis Myofascial pain- Primary Mylagia and myositis, unspecified documented [facility]* Diagnosis Lumbar spondylosis- Primary Lumbosacral spondylosis without myelopathy Lumbar radiculopathy Thoracic or lumbosacral neuritis or radiculitis, unspecified Spinal stenosis of cervical region Spinal stenosis in cervical region Chronic pain syndrome Myofascial pain Mylagia and myositis, unspecified documented in this [facility]* Diagnosis Lumbar spondylosis- Primary Lumbosacral spondylosis without myelopathy Chronic pain syndrome Myofascial pain Mylagia and myositis, unspecified documented in this encounter [facility] general Narrative - Reported* Type Description Date Medical History Elevated cholesterol with elevat ed triglycerides Medical History Low serum testosterone level Medical History Lumbar pain Medical History Hypertension Medical History Diverticulosis Surgical History R shoulder arthroscopy Surgical History FB R wrist Surgical History Umbilical hernia repair 07/12/20 23 Surgical History Colonoscopy 06/25/2023 Hospitalization History SEE SURGICAL HX [facility] Other Reason for Referral Status Reason Specialty Diagnoses / Procedures Referred By Contact Referred To Contact Auth Not Needed Diagnoses Myofascial pain Chronic pain syndrome Maik Barbosa MD [address] [place] [address] Scheduling Instructions Please PA and schedule: neck and back TPI (pt will need a [address] Barbosa) Reason *FU 08/08 chronic lumbar pain, would benefit from less NSAID use. Diagnosis 1 Low back pain, unspe cified (M54.50) Referral Organization [facility] xochitl Referring Provider First Name Kell Referring Provider Last Name Tawnya Referring Provider Specialty Family Medi cine Referred Organization [facility] Referred Address [address], [place],[address] Referred Provider Specialty Pain Medicin e Referral Priority Routine General Notes Es Cooper 05:14:13 PM >received today, attachments made, notes locked, referral faxed Clinical Notes f: [id number] Summary Purpose Family History No Family History [...] Chronic pain syndrome Maik Barbosa MD [address] [place] [address] Reason Comments Pain Specialty Diagnoses / Procedures Referred By Contac t Referred To Contact Diagnoses Lumbar facet arthropathy Maik Barbosa MD [address] [place] [address] Referral ID Status Reason Start Date Expiration Date Visits Re quested Visits Authorized [id number] Closed 04/14/2021 05/09/2022 1 1 (unrecognized sect ion and content) No Status Records FoundNo Status Records FoundNo Status Records Found INFORMATION SOURCE (unrecogn ized section and content) DATE CREATED AUTHOR 05/10/2021 [facility] DATE CREATED AUTHOR AUTHOR'S ORGANIZ ATION 01/13/2023 [facility] DATE CREATED AUTHOR AUTHOR'S ORGANIZ ATION 07/27/2023 [facility] (unrecognized sec tion and content) Operator Supply Relationship Specialty Start Date End Date Kell Bowling MD [address] [place] [address] PCP - General Family Medicine 02/10/21 FOR [...] BE BASED ON THE PRIMARY CLINICAL RECORDS. [employer] [facility]. provides no warranty or guarantee of the accuracy or completeness of information in this document.
--- NOTE | 2023-11-02 11:42 | P.CN_ITS ---
Consult Note: HPI Data of Consult Patient: known to practice within the last 3 years Requesting Physician: Rhonda Cheng NP Primary Care Provider: Kell Jack MD Consult Narrative Reason for consult: f/u Narrative: Manuel Burgos a pleasant 53 year old male presents for evaluation and management of chronic back pain. Recently underwent bilateral L4-5 L5-S1 facet branch thermal RFA with 70% ongoing improvement in pain and functional ability. Today pain 3/10 in low back, worse with all activity and improved with lying and sleeping. Has noticed mild temporary relief from dry needling. At this time no benefit from PT/aquatherapy. Patient taking diclofenac 75mg BID PRN robaxin 500mg PRN and duloxetine 30 mg daily without side effects. Patient utilizing topical cream from [employer]dermal therapeutics with benefit. Patient has been taking less diclofenac since RFA. Patient would like to discuss chronic SIJ pain. cc:: CC: Rhonda Cheng NP Review of Systems ROS Status of ROS 10 or more systems reviewed and unremark able except as noted in history and below Musculoskeletal Reports: back pain and joint pain PFSH PFSH Medical History Heartburn ?R12 - Heartburn (ICD-10) Umbilical hernia ?K42.9 - Umbilical hernia without obstruction or gangrene (ICD-10) H/O retained foreign body fully removed ?Z87.821 - Personal history of retained foreign body fully removed (ICD-10) Hypertension ?I10 - Essential (primary) hypertension (ICD-10) Glaucoma ?H40.9 - Unspecified glaucoma (ICD-10) Surgical History History of surgery on right wrist ?Z98.890 - Other specified postprocedural states (ICD-10) H/O arthroscopy of shoulder ?Z98.890 - Other specified postprocedural states (ICD-10) H/O colonoscopy ?Z98.890 - Other specified postprocedural states (ICD-10) Family History Aunt Family history of cancer Grandmother Family history of cancer Grandfather Family history of cancer Other Family history of diabetes mellitus Family history of hypertension Family history of myocardial infarction Social History Within the past year, how often did you have a drink containing alcohol: 2-3 times a week Within the past year, how many standard drinks containing alcohol did you have on a typical day: 5 or 6 Within the past year, how often did you have six or more drinks on one occasion: weekly Total score: 7 Score interpretation: A score of 4 or more indicates drinking is likely to affect patient's safety. 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 Highest level of school completed/degree received: Associate degree: academic program Meds Home Medications and Allergies Home Medications Medication Instructions Recorded Confirmed Type ascorbic acid (vitamin C) 250 mg 250 mg PO DAILY 06/22/23 10/03/23 History tablet atenolol 50 mg-chlorthalidone 25 1 tab PO DAILY 06/22/23 10/03/23 History mg tablet diclofenac sodium 75 mg 75 mg PO BID 06/22/23 10/03/23 History tablet,delayed release duloxetine 30 mg capsule,delayed 30 mg PO DAILY 06/22/23 10/03/23 History release testosterone 1.62 % (20.25 mg/1.25 1 packet transdermal QAM 06/22/23 10/03/23 History gram) transdermal gel packet (AndroGel) vitamin B comp and C no.3 15 mg-10 1 cap PO DAILY 06/22/23 10/03/23 History mg-50 mg-5 mg-300 mg capsule (B Complex Plus Vitamin C) methocarbamol 750 mg tablet 750 mg PO TID 08/31/23 10/03/23 History Allergies Allergy/AdvReac Type Severity Reaction Status Date / Time No Known Drug Allergies Allergy Verified 10/03/23 09:36 Exam Constitutional Documenting provider has reviewed patient's vital signs: yes Common normals: no apparent distress, oriented x3, healthy appearing, alert and well nourished General appearance: cooperative HENMT Common normals: normocephalic, hearing grossly normal bilaterally and moist oral mucous membranes Head and scalp: normocephalic Eye Common normals: PERRL Pupil: PERRL Neck & C-Spine Common normals: full ROM General: normal visual inspection Chest Common normals: inspection of chest normal Respiratory Common normals: normal respiratory effort, no retractions and no use of accessory muscles Back & Pelvis Lumbar spine/lower back: ROM limited and pain with ROM Other: mild positive facet loading bilateral SIJ pain, pain over PSIS positive katia fadir thigh thrust, pain greater on left than right Extremity Common normals: normal to inspection and full ROM Neuro Common normals: oriented x3, CN's II-XII intact bilaterally, moves all extremities, no focal motor deficits, no sensory deficits noted, deep tendon reflexes 2+ bilaterally and gait normal Sensorium/orientation: alert Motor exam: strength 5/5 throughout and no movement abnormalities noted Psych Common normals: mental status grossly normal, thought process normal, cooperative, affect normal, speech normal and activity/motor behavior normal Speech: normal speech Thought process: normal thought process Results Additional Findings Additional findings: I have checked an OARRS report on this patient today and there are no aberrancies noted in the prescribing history.?? A drug screen was completed and reviewed within the last year, and if there has not been a drug screen completed we ordered one today to monitor higher risk, state monitored pain medication use. As part of providing excellent, safe, comprehensive care, the following was completed at our patient's visit: 1. A medication reconciliation and review to ensure accurate knowledge of current/active medications, including asking our patients to inform us about any [id number] medications or herbal remedies/nutritional supplements/alternative remedies. 2. A review to specifically ensure our patients have had annual screening for: elevated body mass index (BMI), tobacco use, screening for depression, and screening for unhealthy alcohol use. When screening is concerning, patients are provided with education and the specific recommendation to discuss the concerning health issue and treatment options with their primary care provider. Assessment and Plan Assessment and Plan (1) Lumbar spondylosis: (2) Myofascial pain: (3) Sacroiliitis: Plan Left SIJ injection under fluoroscopy with Dr Fairchild continue HEP/PT as tolerated continue current medications, tolerating well without side effects continue transdermal therapeutics cream f/u after injection
== END 2023-11-02 11:18 | disposition home or self-care (01) ==
LOC: PM 11:17
PROVIDERS: PCP Family Medicine; Visit Provider Nurse Practitioner
DX: M47.816 Spondylosis without myelopathy or radiculopathy, lumbar region (principal); M79.18 Myalgia, other site; M46.1 Sacroiliitis, not elsewhere classified
CPT/HCPCS: G0463

== ENCOUNTER 2023-11-08 12:29 | Outpatient (OUT) | payer BC, SELFPAY ==
[2023-11-08 12:53] LABS: Basophils Absolute Auto 0.1 10^3/uL (0.0-0.1); Basophils Percent Auto 0.9 % (0.2-2.0); Eosinophils Absolute Auto 0.3 10^3/uL (0.0-0.7); Eosinophils Percent Auto 3.2 % (0.9-7.0); Hematocrit 43.5 % (42.0-54.0); Hemoglobin 13.2 g/dL (14.0-18.0); Immature Granulocytes Abs Auto 0.02 10^3/uL (0.00-0.03); Immature Granulocytes Pct Auto 0.2 % (0.0-0.5); Lymphocytes Absolute Auto 3.6 10^3/uL (1.2-3.8); Lymphocytes Percent Auto 35.5 % (20.5-60.0); Mean Corpuscular HGB Conc 30.3 g/dL (29.9-35.2); Mean Corpuscular Hemoglobin 23.9 pg (25.9-34.0); Mean Corpuscular Volume 78.7 fL (80.0-94.0); Mean Platelet Volume 9.4 fL (9.5-13.5); Monocytes Absolute Auto 0.9 10^3/uL (0.3-0.8); Monocytes Percent Auto 8.5 % (1.7-12.0); Neutrophils Absolute Auto 5.2 10^3/uL (1.4-6.5); Neutrophils Percent Auto 51.7 % (43.0-75.0); Platelet Count 384 10^3/uL (150-450); Red Blood Count 5.53 10^6/uL (4.70-6.10); Red Cell Distribution Width 17.4 % (11.0-15.0)
== END 2023-11-08 12:30 | disposition home or self-care (01) ==
LOC: LAB 12:30
PROVIDERS: PCP Family Medicine; Visit Provider Family Medicine
DX: D64.9 Anemia, unspecified (principal)
CPT/HCPCS: 36415; 82607; 82728; 82746; 85025

== ENCOUNTER 2023-11-13 06:58 | Day surgery (SDC) | payer BC, SELFPAY ==
--- OUTSIDE RECORDS SUMMARY | 2023-11-13 07:02 | XMS_ITS | CCD ---
Author Name Unknown Address [address] [place] [address] Organization [facility] Care Team Providers Care Refuse Driver Name Role Phone Kell Bowling MD Primary [...] physicia Propensity to adverse reactions 9 Comment:Done [facility] Other (2 sources) Allergies Reconciled Propensity to adverse reactions Unknown [facility] Other Medications Current Medications Medication Drug Class(es) Dates Sig (Normalized) Sig (Original) Amoxicillin (1 source) Penicillin-class Antibacterial Amoxicillin Active Atenolol / Chlorthalidone (7 sources) Thiazide-like Diuretic, beta-Adrenergic Daron Start: 08-22-2022 take 1 tablet by mouth once daily Atenolol-Chlortha lidone 50-25mg atenoloL-chlortha lidone 50-25mg, 1 (one) Tablet daily # 90, 08/22/2022, Ref. x1. Active oral daily for 90 *Pick strength-form from [employer] for eRX* Aug, Active Start: 02-05-2021 atenolol-chlor thalidone 50-25 MG tablet cyclobenzaprine hydrochloride 10 mg oral tablet (7 sources) Muscle Relaxant Start: 05-31-2022 take 1 tablet by mouth three times daily as needed cyclobenzaprine 10mg cyclobenzaprine 10mg, 1 (one) Tablet three times daily, as needed # 30, 05/31/2022, No Refill. Active oral three times daily, as needed for 0 *Reorder from [employer] for eRx and Interaction Alerts* May, Active [...] Refill. Active transdermal for 0 *Reorder from [employer] for eRx and Interaction Alerts* May, Active [...] Visit Summaryon 1 09-25-2022 Ambulatory Visit Summary MANEUL ROSAS :1970 Visit Date:07/26/2023 Ambulatory Visit Instructions [...] FERMIN, Chata Inman Where: [facility] Lab Reportson 07-26-2023 Lab Reports [id number]#1.00TIFF Normal [facility] Lab Reports [id number]#1.00TI FF Normal [facility] Medication Consenton 023 Medication Consent [id number]#1.00TI FF Normal [facility] Patient Educationon 07-26-20 23 Patient Education [...] Follow these instructions at home: ? Take igkj-ryu-iwrolzi and prescription medicines only as told by [...] from the medicine (more content not included)... [facility] Reminderson 07-26-2023 Reminders - From: Meme Haley To: EU - Recalls Lue; Sent: 07/26/2023 11:33:52 EST Show up: 05/26/2024 12:33:00 EDT Subject: Labs Due Date/Time: 07/26/2024 11:33:00 EST Pt will need T Level, HCT and PSA prior to appt. PSA is done by PCP. [facility] Screenson 07-26-2023 Screens [id number]#1.00TI FF [facility] Screens [id number]#1.00TI FF [facility] Urology Office/Clinic Noteon 07-26-2023 Urology Office/Clinic Note Chief Complaint 6m Testosterone Level HPI Staff 6m Testosterone Level DX: Hypogonadism, Impotence & BPH *Cialis 10mg PRN (occasionally uses 20mg) & Androgel 2 pumps qd PSA 07/05/23- 0.78 CBC/CMP 07/05/23 *BUN 21.0 & Crea 1.48 eGFR 50 *Hgb 12.3 & Hct 38.9 A1C 07/05/23- 5.8 Testosterone 07/20/23- 366 (805-792) Pt has no concerns at this time. [...] mRNA BNT-162b2 vax (more content not included)... [facility] Comment on above: Result Comment: Elec tronically Signed By: Chata Page MD\.br\Date and Time Signed: 07/26/23 08:57 EST\.br\Electronically Co-Signed By: Meme Haley\.br\Date and Time Co-Signed: 07/26/23 08:37 EST Lab Reportson 07-24-2023 Lab Reports [id number]#1.00TIF F [facility] Ambulatory Visit Summaryon 0 01-11-2023 Ambulatory Visit Summary MANUEL ROSAS :1970 Visit Date:01/11/2023 Ambulatory Visit Instructions Your Diagnosis Impotence Male hypogonadism BPH (benign prostatic hyperplasia) Tests Performed Urnls Dip Stick Auto w/o Microscopy POC [id number] Your Care Team Attending Physician - Chata [...] Chata Page MD Where: [facility] Patient Educationon 01-12-20 Patient Education Urology [...] provider. Document Revised: 08/03/2020 Document Reviewed: 08/03/2020 [employer] Patient Education ? 2022 [employer]. Normal [facility] Screenson 01-11-2023 Screens [id number]#1.00CD :127 Normal [facility] Screens [id number]#1.00CD :127 Normal [facility] Urology Office/Clinic Noteon 01-11-2023 Urology Office/Clinic Note Chief Complaint 6 month follow up HPI Staff 6 month follow up w/testosterone level 487 done 01/06/23, previous testosterone level 410 done 06/20/22. Previous DX: BPH, impotence, male hypogonadism. Pt is currently taking Cialis 10mg PRN, and AndroGel 2 pumps daily-refill on both medications sent to [facility] in [place]. IPSS is , MAKI 22. Dysuria: denies [...] Androgel 2 pumps daily. Refill sent to [facility]. Good range and sx improvement, prior CBC [...] (more content not included)... Normal [facility] Comment on above: Result Comment: Elec tronically Signed By: Chata Page MD\.br\Date and Time Signed: 01/11/23 19:10 EDT\.br\Electronically Co-Signed By: Ericka Mcconnell.br\Date and Time Co-Signed: 01/11/23 10:32 EDT Lab Reportson 01-10-2023 Lab Reports [id number]#1.00CD: 127 Normal [facility] TESTOSTERONE, TOTALon 2022 Testosterone [Mass/Vol] 487 ng/dL Normal 264-916 [facility] Comment on above: Result Comment: Adul t male reference interval is based on a population of healthy nonobese males (BMI <30) between 19 and 39 years old. Joni et.al. JCEM 2017,102;9598-8984. PMID: 49167513. Performed By: #### T ESTTOT #### [facility] [address] [place] [address] Dr. Mychal Oropeza Pre-Certification Formon Pre-Certification Form [id number]#1.00CD: 127 Normal [facility] Pre-Certification Formon Pre-Certification Form [id number]#1.00CD: 127 Normal [facility] Pre-Certification Formon Pre-Certification Form [id number]#1.00CD: 127 Normal [facility] US SINGLE QUAD RT UPPERon US [...] by: CHRISTOFER SCHAEFFER Date: 2022-08-25 07:[address] [facility] Historical Records Officeon 08-19-2022 Historical Records Office [id number]#1.00CD: 127 Normal [facility] Pre-Certification Formon Pre-Certification Form [id number]#1.00CD: 127 Normal [facility] Patient Letter FTMCon 2021 [place] [facility] [place]Inserted Image. Nga ble to display) August 18, 2022 ARMANDORAYMUNDO NOLANEL [address] [place] [address] RAYMUNDO ROSASEL 1970 Dear Whomever it may [...] Sincerely, Dr. Chata Page MD [facility] [address] [place] [address]. [place] [address] Normal [facility] TESTOSTERONE, TOTALon 2021 Testosterone [Mass/Vol] 410 ng/dL Normal 264-916 [facility] Comment on above: Result Comment: Adul t male reference interval is based on a population of healthy nonobese males (BMI <30) between 19 and 39 years old. Joni, et.al. JCEM 2017,102;5065-3345. PMID: 83161591. Performed By: #### T ESTTOT #### [facility] [address] [address] [address] Mychal Oropeza CBC AUTO DIFFon 05-27-2022 BASO # 0.1 103/ul Normal 0.0-0.1 [facility] Comment on above: Performed By: #### C BC #### [facility] [address] [place] [address] Dr. Mychal Oropeza Basophils/100 WBC (Bld) 0.9 % Normal 0.2-2.0 [facility] Comment on above: Performed By: #### C BC #### [facility] [address] [place] [address] Dr. Mychal Oropeza EO # 0.7 103/ul Normal 0.0-0.7 [facility] Comment on above: Performed By: #### C BC #### [facility] [address] [place] [address] Dr. Mychal Oropeza Eosinophils/100 WBC (Bld) 6.7 % Normal 0.9-7.0 [facility] Comment on above: Performed By: #### C BC #### [facility] [address] [place] [address] Dr. Mychal Oropeza Erythrocyte distribution width (RBC) [Ratio] 12.8 % Normal 11.0-15.0 [facility] Comment on above: Performed By: #### C BC #### [facility] [address] [place] [address] Dr. Mychal Oropeza Hematocrit (Bld) [Volume fraction] 46.9 % Normal 42.0-54.0 [facility] Comment on above: Performed By: #### C BC #### [facility] [address] [place] [address] Dr. Mychal Oropeza Hemoglobin (Bld) [Mass/Vol] 16.2 g/dL Normal 14.0-18.0 [facility] Comment on above: Performed By: #### C BC #### [facility] [address] [place] [address] Dr. Mychal Oropeza IG # 0.04 10e3/ul Critically high 0.00-0.03 [facility] Comment on above: Performed By: #### C BC #### [facility] [address] [place] [address] Dr. Mychal Oropeza IG % 0.4 % Normal 0.0-0.5 [facility] Comment on above: Performed By: #### C BC #### [facility] [address] [address] [address] Mychal Oropeza LYMPH # 4.1 103/ul Critically high 1.2-3.8 [facility] Comment on above: Performed By: #### C BC #### [facility] [address] [address] [address] Mychal Oropeza Lymphocytes/100 WBC (Bld) 37.7 % Normal 20.5-60.0 [facility] Comment on above: Performed By: #### C BC #### [facility] [address] [place] [address] Dr. Mychal Oropeza MANUAL DIFF REQ NO Normal [facility] Comment on above: Performed By: #### C BC #### [facility] [address] [place] [address] Dr. Mychal Oropeza MCH (RBC) [Entitic mass] 30.7 pg Normal 25.9-34.0 [facility] Comment on above: Performed By: #### C BC #### [facility] [address] [place] [address] Dr. Mychal Oropeza MCHC (RBC) [Mass/Vol] 34.5 g/dL Normal 29.9-35.2 [facility] Comment on above: Performed By: #### C BC #### [facility] [address] [place] [address] Dr. Mychal Oropeza MCV (RBC) [Entitic vol] 88.8 fL Normal 80.0-94.0 [facility] Comment on above: Performed By: #### C BC #### [facility] [address] [place] [address] Dr. Mychal Oropeza MONO # 0.9 103/ul Critically high 0.3-0.8 [facility] Comment on above: Performed By: #### C BC #### [facility] [address] [place] [address] Dr. Mychal Oropeza Monocytes/100 WBC (Bld) 8.1 % Normal 1.7-12.0 [facility] Comment on above: Performed By: #### C BC #### [facility] [address] [address] [address] Mychal Oropeza NEUT # 5.1 103/ul Normal 1.4-6.5 [facility] Comment on above: Performed By: #### C BC #### [facility] [address] [address] [address] Mychal Oropeza Neutrophils/100 WBC (Bld) 46.2 % Normal 43.0-75.0 [facility] Comment on above: Performed By: #### C BC #### [facility] [address] [address] [address] Mychal Oropeza Platelet mean volume (Bld) [Entitic vol] 9.7 fL Normal 9.5-13.5 [facility] Comment on above: Performed By: #### C BC #### [facility] [address] [address] [address] Mychal Oroepza PLT 308 103/ul Normal 150-450 [facility] Comment on above: Performed By: #### C BC #### [facility] [address] [address] [address] Mychal Oropeza RBC 5.28 106/ul Normal 4.70-6.10 [facility] Comment on above: Performed By: #### C BC #### [facility] [address] [address] [address] Mychal Oropeza WBC 10.9 103/ul Normal 4.0-11.0 [facility] Comment on above: Performed By: #### C BC #### [facility] [address] [address] [address] Mychal Oropeza GLYCOHEMOGLOBIN A1Con 2021 ADA RECOMMENDATION SEE BELOW Normal [facility] Comment on above: Result Comment: ADA RECOMMENDED LIMIT 4.0 - 6.0 ADA THERAPEUTIC TARGET < 7.0 ACTION SUGGESTED > 7.0 Performed By: #### A 1C #### [facility] [address] [address] [address] Mychal Oropeza Glucose [Mass/Vol] 108 mg/dL Normal [facility] Comment on above: Performed By: #### A 1C #### [facility] [address] [address] [address] Mychal Oropeza HbA1c (Bld) [Mass fraction] 5.4 % Normal 4.5-6.2 [facility] Comment on above: Performed By: #### A 1C #### [facility] [address] [address] [address] Mychal Oropeza LIPID PROFILEon 05-27-2022 CHOL-HDL RATIO NORM SEE BELOW Normal [facility] Comment on above: Result Comment: 3.3 - 4.4 LOW RISK 4.4 - 7.1 AVERAGE RISK 7.1 - 11.0 MODERATE RISK >11.0 HIGH RISK Performed By: #### T SH, LIPID, CMP #### [facility] [address] [address] [address] Mychal Oropeza Cholesterol [Mass/Vol] 207 mg/dL Critically high <=200 [facility] Comment on above: Performed By: #### T SH, LIPID, CMP #### [facility] [address] [address] [address] Mychal Oropeza Cholesterol in HDL [Mass/Vol] 47 mg/dL Normal 40-60 [facility] Comment on above: Performed By: #### T SH, LIPID, CMP #### [facility] [address] [address] [address] Mychal Oropeza Cholesterol in LDL [Mass/Vol] 122.4 mg/dL Normal [facility] Comment on above: Performed By: #### T SH, LIPID, CMP #### [facility] [address] [address] [address] Mychal Oropeza Cholesterol.total/Ch olesterol in HDL [Mass ratio] 4.4 {ratio} Normal [facility] Comment on above: Performed By: #### T SH, LIPID, CMP #### [facility] [address] [address] [address] Mychal Oropeza HDL NORMAL > or = 60 mg/dl - LO W CARDIOVASCULAR RISK <40 mg/dl - HIGH CARDIOVASCULAR RISK Normal [facility] Comment on above: Performed By: #### T SH, LIPID, CMP #### [facility] [address] [address] [address] Mychal Oropeza LDL CALC NORMAL SEE BELOW Normal [facility] Comment on above: Result Comment: <100 mg/dl OPTIMAL 100 - 129 mg/dl NEAR OR ABOVE OPTIMAL 130 - 159 mg/dl BORDERLINE HIGH 160 - 189 mg/dl HIGH >190 mg/dl VERY HIGH Performed By: #### T KADIE, LIPID, CMP #### [facility] [address] [address] [address] Mychal Oropeza Triglyceride [Mass/Vol] 188 mg/dL Critically high <=150 [facility] Comment on above: Performed By: #### T KADIE, LIPID, CMP #### [facility] [address] [address] [address] Mychal Oropeza VLDL CALC 37.6 mg/dL Normal [facility] Comment on above: Performed By: #### T KADIE, LIPID, CMP #### [facility] [address] [place] [address] Dr. Mychal Oropeza PROF 14(COMP METB)on 022 Albumin [Mass/Vol] 3.9 g/dL Normal 3.4-5.0 [facility] Comment on above: Performed By: #### T KADIE, LIPID, CMP #### [facility] [address] [address] [address] Mychal Oropeza Albumin/Globulin [Mass ratio] 1.1 {ratio} Normal [facility] Comment on above: Performed By: #### T KADIE, LIPID, CMP #### [facility] [address] [address] [address] Mychal Oropeza ALP [Catalytic activity/Vol] 77 U/L Normal 46-116 [facility] Comment on above: Performed By: #### T KADIE, LIPID, CMP #### [facility] [address] [address] [address] Mychal Oropeza ALT [Catalytic activity/Vol] 56 U/L Normal 16-63 [facility] Comment on above: Performed By: #### T KADIE, LIPID, CMP #### [facility] [address] [address] [address] Mychal Oropeza Anion gap [Moles/Vol] 8.6 mmol/L Normal [facility] Comment on above: Performed By: #### T SH, LIPID, CMP #### [facility] [address] [place] [address] Dr. Mychal Oropeza AST [Catalytic activity/Vol] 30 U/L Normal 15-37 [facility] Comment on above: Performed By: #### T SH, LIPID, CMP #### [facility] [address] [place] [address] Dr. Mychal Oropeaz Bilirubin [Mass/Vol] 0.6 mg/dL Normal 0.2-1.0 [facility] Comment on above: Performed By: #### T SH, LIPID, CMP #### [facility] [address] [place] [address] Dr. Mychal Oropeza Calcium [Mass/Vol] 9.2 mg/dL Normal 8.5-10.1 [facility] Comment on above: Performed By: #### T SH, LIPID, CMP #### [facility] [address] [place] [address] Dr. Mychal Oropeza Chloride [Moles/Vol] 100 mmol/L Normal 98-107 [facility] Comment on above: Performed By: #### T SH, LIPID, CMP #### [facility] [address] [place] [address] Dr. Mychal Oropeza CO2 [Moles/Vol] 30.0 mmol/L Normal 21.0-32.0 [facility] [place] [facility] Comment on above: Performed By: #### T SH, LIPID, CMP #### [facility] [address] [place] [address] Dr. Mychal Oropeza Creatinine [Mass/Vol] 1.37 mg/dL Critically high 0.70-1.30 [facility] Comment on above: Performed By: #### T SH, LIPID, CMP #### [facility] [address] [place] [address] Dr. Mychal Oropeza EGFR-AF MAURITIAN >60 Normal >=60 [facility] [place] [facility] Comment on above: Performed By: #### T SH, LIPID, CMP #### [facility] [address] [place] [address] Dr. Mychal Oropeza EGFR-NON AF MAURITIAN 55 mL/min/1.73m2 Critically low >=60 [facility] Comment on above: Performed By: #### T KADIE, LIPID, CMP #### [facility] [address] [address] [address] Mychal Oropeza Globulin (S) [Mass/Vol] 3.7 g/dL Normal [facility] Comment on above: Performed By: #### T KADIE, LIPID, CMP #### [facility] [address] [address] [address] Mychal Oropeza Glucose [Mass/Vol] 111 mg/dL Critically high 74-106 T [facility] Comment on above: Performed By: #### T KADIE, LIPID, CMP #### [facility] [address] [place] [address] Dr. Mychal Oropeza Potassium [Moles/Vol] 3.6 mmol/L Normal 3.5-5.1 [facility] Comment on above: Performed By: #### T KADIE, LIPID, CMP #### [facility] [address] [place] [address] Dr. Mychal Oropeza Protein [Mass/Vol] 7.6 g/dL Normal 6.4-8.2 [facility] Comment on above: Performed By: #### T KADIE, LIPID, CMP #### [facility] [address] [place] [address] Dr. Mychal Oropeza Sodium [Moles/Vol] 135 mmol/L Critically low 136-145 [facility] Comment on above: Performed By: #### T KADIE, LIPID, CMP #### [facility] [address] [place] [address] Dr. Mychal Oropeza Urea nitrogen [Mass/Vol] 14.0 mg/dL Normal 7.0-18.0 [facility] Comment on above: Performed By: #### T KADIE, LIPID, CMP #### [facility] [address] [address] [address] Mychal Oropeza Urea nitrogen/Creatinine [Mass ratio] 10.2 mg/mg Normal [facility] Comment on above: Performed By: #### T KADIE, LIPID, CMP #### [facility] [address] [place], [place] [address] Dr. Mychal Oropeza TSHon 05-27-2022 TSH 2.907 uIU/mL Normal 0.358-3.[address] [facility] Comment on above: Performed By: #### T SH, LIPID, CMP #### [facility] [address] [place], [place] [address] Dr. Mychal Oropeza TESTOSTERONE, TOTALon 2021 Testosterone [Mass/Vol] 324 ng/dL Normal 264-916 [facility] Comment on above: Result Comment: Adul t male reference interval is based on a population of healthy nonobese males (BMI <30) between 19 and 39 years old. bouchra Quinones.al. JCEM 2017,102;9952-7653. PMID: 35897940. Performed By: #### T ESTTOT #### [facility] [address] [address] [address] Mychal Oropeza XR SPINE CERVICAL WITH [...] fair flexion. No instability is noted. Normal [facility] XR SPINE LUMBAR W BENDINGon 02-10-2021 XR [...] good range of motion without instability. Normal [facility] XR SPINE LUMBAR W BENDINGOrd ered By: Maik Barbosa on 02-10-2021 IMPRESSION: Lumbar s pine visually is fairly well preserved. There is no evidence of fracture, listhesis, significant disc space narrowing or major degenerative changes. There is a very good range of motion without instability. [facility]unnit EXAM: XR SPINE LUMBA R W BENDING [...] motion. There is no listhesis or instability. [facility], Interfaces - 02/10/2021 4:52 PM EDT [...] very good range of motion without instability. [facility] Vital Signs Date Time Vital Sign Value Performing Clinician Facility 08-31-2023 15:30-0500 Body height 170.18 cm Kell Bowling Other [facility] Other 08-31-2023 15:30-0500 Body mass index (BMI) [Ratio] 33.04 kg/m2 Kell Bowling Other [facility] Other 08-31-2023 15:30-0500 Body weight 95.71 kg Kell Bowling Other [facility] Other 08-31-2023 15:30-0500 Diastolic blood pressure 77 mm[Hg] Kell Bowling Other [facility] Other 08-31-2023 15:30-0500 Systolic blood pressure 119 mm[Hg] Kell Bowling Other [facility] Other 08-01-2023 08:30-0500 Body height 170.18 cm Kell Bowling Other [facility] Other 08-01-2023 08:30-0500 Body mass index (BMI) [Ratio] 35.14 kg/m2 Kell Bowling Other [facility] Other 08-01-2023 08:30-0500 Body weight 101.79 kg Kell Bowling Other [facility] Other 08-01-2023 08:30-0500 Diastolic blood pressure 82 mm[Hg] Kell Bowling Other [facility] Other 08-01-2023 08:30-0500 Systolic blood pressure 118 mm[Hg] Kell Bowling Other [facility] Other 04-16-2021 12:05-0400 Diastolic blood pressure 97 mm[Hg] Maik Barbosa MD Work Phone: [facility] 04-16-2021 12:05-0400 Heart rate 54 /min Maki Barbosa MD Work Phone: [facility] 04-16-2021 12:05-0400 Respiratory rate 16 /min Maik Barbosa MD Work Phone: [facility] 04-16-2021 12:05-0400 SaO2% (BldA) [Mass fraction] 95 % Maik Barbosa MD Work Phone: [facility] 04-16-2021 12:05-0400 Systolic blood pressure 142 mm[Hg] Maik Barbosa MD Work Phone: [facility] 03-17-2021 08:04-0400 Body height 170.2 cm Maik Barbosa MD Work Phone: [facility] 03-17-2021 08:04-0400 Body mass index (BMI) [Ratio] 34.61 kg/m2 Maik Barbosa MD Work Phone: [facility] 03-17-2021 08:04-0400 Body weight 100.25 kg Maik Barbosa MD Work Phone: [facility] 03-17-2021 08:04-0400 Diastolic blood pressure 93 mm[Hg] Maik Barbosa MD Work Phone: [facility] 03-17-2021 08:04-0400 Heart rate 74 /min Maik Barbosa MD Work Phone: [facility] 03-17-2021 08:04-0400 Respiratory rate 20 /min Maik Barbosa MD Work Phone: [facility] 03-17-2021 08:04-0400 SaO2% (BldA) [Mass fraction] 96 % Maik Barbosa MD Work Phone: [facility] 03-17-2021 08:04-0400 Systolic blood pressure 132 mm[Hg] Maik Barbosa MD Work Phone: [facility] 02-24-2021 12:02-0400 Diastolic blood pressure 100 mm[Hg] Maik Barbosa MD Work Phone: [facility] 02-24-2021 12:02-0400 Heart rate 55 /min Maik Barbosa MD Work Phone: [facility] 02-24-2021 12:02-0400 Respiratory rate 18 /min Maik Barbosa MD Work Phone: [facility] 02-24-2021 12:02-0400 SaO2% (BldA) [Mass fraction] 95 % Maik Barbosa MD Work Phone: [facility] 02-24-2021 12:02-0400 Systolic blood pressure 141 mm[Hg] Maik Barbosa MD Work Phone: [facility] 02-10-2021 11:46-0400 Body height 170.2 cm Maik Barbosa MD Work Phone: [facility] 02-10-2021 11:46-0400 Body mass index (BMI) [Ratio] 34.61 kg/m2 Maik Barbosa MD Work Phone: [facility] 02-10-2021 11:46-0400 Body weight 100.25 kg Maik Barbosa MD Work Phone: [facility] 02-10-2021 11:46-0400 Diastolic blood pressure 81 mm[Hg] Maik Barbosa MD Work Phone: [facility] 02-10-2021 11:46-0400 Heart rate 64 /min Maik Barbosa MD Work Phone: [facility] 02-10-2021 11:46-0400 Respiratory rate 18 /min Maik Barbosa MD Work Phone: [facility] 02-10-2021 11:46-0400 SaO2% (BldA) [Mass fraction] 99 % Maik Barbosa MD Work Phone: [facility] 02-10-2021 11:46-0400 Systolic blood pressure 121 mm[Hg] Maik Barbosa MD Work Phone: [facility] Encounters Encounter Date Encounter Type Care Provider Facility Start: 07-31-2024 ambulatory Chata Page Facility:[facility] Start: 08-31-2023 End: 08-31-2023 ambulatory Kell Bowling Other [facility] Other Start: 08-31-2023 Office outpatient vi sit 15 minutes Kell Bowling [facility] Start: 08-01-2023 End: 08-01-2023 ambulatory Kell Bowling Other [facility] Other Start: 08-01-2023 Encounter for genera l adult medical examination without abnormal findings Kell Bowling [facility] Start: 08-01-2023 Periodic preventive med est patient 40-64yrs Kell Bowling [facility] Start: 07-26-2023 End: 07-27-2023 ambulatory [...] examination without abnormal findings DR KELL BOWLING [facility] Start: 05-27-2022 End: 05-28-[address] KELL BOWLING Facility:[facility] Start: 05-27-2022 End: 05-28-2022 Encounter for general adult medical examination without abnormal findings DR KELL BOWLING Facility:[facility] Start: 01-19-2022 End: 01-20-[address] KELL BOWLING Facility:[facility] Start: 04-16-2021 End: 04-16-2021 Patient encounter procedure Maik Barbosa MD Work Phone: [facility] Procedural Pain Management Comment on above: Lumbar spondylosis ( Primary Dx); Chronic pain syndrome; Myofascial pain Start: 03-17-2021 End: 03-17-2021 Office outpatient visit 15 minutes Maik Barbosa MD Work Phone: [facility] Comment on above: Lumbar spondylosis ( Primary Dx); Lumbar radiculopathy; Spinal stenosis of cervical region; Chronic pain syndrome; Myofascial pain Start: 02-24-2021 End: 02-24-2021 Clinical Support Encounter Maik Barbosa MD Work Phone: [facility] Comment on above: Myofascial pain (Ara reji Dx) Start: 02-10-2021 End: 02-10-2021 Subsequent hospital visit by physician Maik Barbosa MD Work Phone: [facility] Comment on above: Arrived Start: 02-10-2021 End: 02-10-2021 Office outpatient new 45 minutes Maik Barbosa MD Work Phone: [facility] Comment on above: Myofascial pain (Ara reji Dx); Arthropathy of cervical facet joint; Spondylosis of lumbar region without myelopathy or radiculopathy; Chronic pain syndrome; Compliance with medication regimen Procedures Date Procedure Procedure Detail Performing Clinician Start: 05-27-[address] KELL BOWLING Comment on above: Performed By: #### [facility] #### [facility] [address] [place] [address] Dr. Mychal Oropeza Start: 02-10-2021 Radex spine lumbscrl compl w/bending views min 6 Maik Barbosa MD Work Phone: Plan of Treatment Date Care Activity Detail Author Start: 05-21-2021 End: 05-21-2021 Patient encounter procedure 05/21/2021 Office Visit Anesthesiology Pain Mgt Maik Barbosa MD [address] [facility] [place] [address] [facility] Start: 05-12-2021 Influenza vaccination A [facility] Start: 05-07-2021 End: 05-07-2021 Patient encounter procedure 05/07/2021 Office Visit Anesthesiology Pain Maik Carbajal MD [address] [facility] [place] [address] [facility] Start: 05-03-2021 End: 05-03-2021 Patient encounter procedure 05/03/2021 Office Visit Anesthesiology Pain Mgt Maik Barbosa MD [address] [facility] [place] [address] [facility] Start: 04-27-2021 End: 04-27-2021 Patient encounter procedure 04/27/2021 Office Visit Anesthesiology Pain Mgt Maik Barbosa MD [address] [facility] [place] [address] [facility] Start: 03-17-2021 End: 03-17-2021 Patient encounter procedure 03/17/2021 Office Visit Anesthesiology Pain Mgt Maik Barbosa MD [address] [facility] [place] [address] [phone] [facility] Start: 02-24-2021 End: 02-24-2021 Patient encounter procedure 02/24/2021 Office Visit Anesthesiology Pain Mgt Maik Barbosa MD [address] [place] [address] [facility] Start: 02-10-2021 End: 02-11-2021 DRUG SCREEN MED COMPLIANCE I DRUG SCREEN MED COMPLIANCE I Lab Routine Compliance with medication regimen Expected: 02/10/2021, Expires: 02/11/2021 [facility] Comment on above: Expected: 02/10/2021 , Expires: 02/11/2021 Start: 02-08-2020 Prostate specific antigen measurement PROSTATE CANCER SCREENING DISCUSSION [facility] Start: 02-08-2020 Zoster vaccine hzv l wilmar for subcutaneous use ZOSTER (SHINGLES) VACCINE (1 of 2) [facility] Start: 2015 Colonoscopy COLORECTAL CAN CER SCREENING DISCUSSION [facility] Start: 2010 Fasting lipid profile LIPID SCREENIN G [facility] Start: 1989 Third diphtheria, tetanus and acellular pertussis (DTaP) vaccination TDAP (ADULT) [facility] Start: 02-08-1988 Tetanus vaccination TETANUS [facility] Start: 1985 HIV screening HIV SCREENING DISCUSSI ON [facility] Start: 1982 COVID-19 VACCINE (1) COVID-19 VACCIN E (1) [facility] Start: 1970 Hepatitis C antibody , confirmatory test HEPATITIS C VIRUS SCREENING [facility] Payers Date Payer Category Payer Unknown [id number] 2019 Unknown [id number] 2018 Unknown [id number]. [id number] 1970 Unknown [id number] 2.16.84 [id number] 1970 Unknown [id number] .16.84 [id number] 1970 Unknown [id number] .16.84 [id number] 1970 Unknown [id number] 2.16.84 [id number] 1970 Unknown [id number] 2.16.84 [id number] 1970 Unknown [id number] 2.16.84 [id number] 1970 Unknown [id number] 2.16.84 [id number] 1970 Unknown [id number] 2.16.84 [id number] 1970 Unknown [id number] 2.16.8 [id number] 1970 Unknown [id number] 2.16.8 [id number] 1970 Unknown [id number] 2.16.8 [id number] 1959 Self-pay [id number] Unknown [id number] 2.16.84 [id number] Unknown [id number] Social History Date Type Detail Facility Start: 02-10-2021 End: 03-17-2021 Tobacco smoking status NHIS Never smoker [facility] Start: 02-10-2021 End: 03-17-2021 Tobacco use and exposure Never used [facility] Start: 02-10-2021 End: 03-17-2021 Alcohol intake Current drinker of alcohol (finding) [facility] Start: 02-10-2021 End: 03-17-2021 Alcohol intake [facility] Start: 02-10-2021 Alcohol Comment 5 beers/week [facility] Start: 1970 Sex Assigned At Not on file A [facility] Sex Assigned At Sex Assigned At Bir th [facility] Other Clinical Notes 02-10-2021 to 08-31-2023 Note [...] index [BMI] 33.0-33.9, adult (ICD-10 - Z68.33) [facility] Other 11-21-2023 Evaluation note* Encounter Date Diagnosis [...] (ICD-10 - M54.50) Pt requests referral to [facility]. He hopes to lessen his use of NSAIDs to improve his renal function. Jul, Other chronic pain (ICD-10 - G89.29) Jul, JOSÉ (obstructive sleep apnea) (ICD-10 - G47.33) Form completed for [facility]. Jul, Class 2 obesity [...] to ER and Follow-up with me immediately. [facility] Other 08-06-2021 History and physical note* Maik [...] bilateral lumbar facet block documented in this [facility]08[facility]06[facility]21 History of Present illness Narrative* Humera Genao RN - 04/16/2021 11:30 AM EDT SCRUB - Shellie Alaniz RN RT - RT Ilia INSURANCE ACCOUNT REPRESENTATIVE - N/A JAVASCRIPT PROGRAMMER - Aurelio Genao RN Site cleansed with [...] and earlier as needed. documented in this encounterCent[facility] HospitalAgendize [facility] [id number] Instructions* Patient Instructions* Geovanna Degroot RN - 04/16/2021 11:30 AM EDT [employer] [facility] Pain Management WHAT TO EXPECT AFTER A PROCEDURE Follow up appointment: Call the office ([phone]) if you have any questions or develop [...] to call us at . Thank you, [facility] History of Present illness Narrative* Maik Barbosa [...] tried OTC tylenol, celebrex with somemild relief. [place] has helped in the past, but would [...] Denies dysuria or frequency documented in this [facility]07-07-2021 Instructions* Patient Instructions* Geovanna Degroot [...] when current is passed using the radiofrequency [employer] ne. This numbs the nerves. What should [...] complications are extremely rare. documented in this [facility]06-16[facility]2021 History and physical note* Maik [...] trapezius, and lumbar paraspinal [facility] History of Present illness Narrative* Madina Summers RN - 02/24/2021 11:15 AM EDT PHYSICIAN - SCRUB - Kitty Martinez RN JAVASCRIPT PROGRAMMER - [facility] Site cleansed with chloroprep. Procedure: cervical paraspinal [...] Denies dysuria or frequency documented in this [facility]02[facility]21 History of Present illness Narrative* [...] Social Gatherings with Friends and Family: Attends [employer] Services: Active Member of Clubs or Organizations: [...] tried OTC tylenol, celebrex with somemild relief. [place] has helped in the past, but would [...] within the last year. documented in this [facility]06-02[facility]21 Instructions* Patient Instructions* Geovanna Degroot [...] read the attached handout from the [employer] with guidelines and recommendations for [...] complications are extremely rare. documented in this [facility]* Diagnosis Myofascial pain- Primary Mylagia and myositis, unspecified Arthropathy of cervical facet joint Cervical spondylosis without myelopathy Spondylosis of lumbar region without myelopathy or radiculopathy Lumbosacral spondylosis without myelopathy Chronic pain syndrome Compliance with medication regimen [facility] Diagnosis Spondylosis of lumbar region without myelopathy or radiculopathy Lumbosacral spondylosis without myelopathy documented [facility]* Diagnosis Myofascial pain- Primary Mylagia and myositis, unspecified documented [facility] encounter [facility]* Diagnosis Lumbar spondylosis- Primary Lumbosacral spondylosis without myelopathy Lumbar radiculopathy Thoracic or lumbosacral neuritis or radiculitis, unspecified Spinal stenosis of cervical region Spinal stenosis in cervical region Chronic pain syndrome Myofascial pain Mylagia and myositis, unspecified documented [facility] this encounter [facility]* Diagnosis Lumbar spondylosis- Primary Lumbosacral spondylosis without myelopathy Chronic pain syndrome Myofascial pain Mylagia and myositis, unspecified [facility] in this [facility] Narrative - Reported* Type Description Date Medical History Elevated cholesterol with elevat ed triglycerides Medical History Low serum testosterone level Medical History Lumbar pain Medical History Hypertension Medical History Diverticulosis Surgical History R shoulder arthroscopy Surgical History FB R wrist Surgical History Umbilical hernia repair 07/12/20 23 Surgical History Colonoscopy 06/25/2023 Hospitalization History SEE SURGICAL HX [facility] Other Reason for Referral Status Reason Specialty Diagnoses / Procedures Referred By Contact Referred To Contact Auth Not Needed Diagnoses Myofascial pain Chronic pain syndrome Maik Barbosa MD [address] [place] [address] Scheduling Instructions Please PA and schedule: neck and back TPI (pt will need a [address] Barbosa) Reason *FU 08/08 chronic lumbar pain, would benefit from less NSAID use. Diagnosis 1 Low back pain, unspe cified (M54.50) Referral Organization [facility] xochitl Referring Provider First Name Kell Referring Provider Last Name Tawnya Referring Provider Specialty Family Medi cine Referred Organization [facility] Referred Address [address], [place],[address] Referred Provider Specialty Pain Medicin e Referral Priority Routine General Notes Es Cooper 05:14:13 PM >received today, attachments made, notes locked, referral faxed Clinical Notes f: [id number] Summary Purpose Family History No Family History [...] Chronic pain syndrome Maik Barbosa MD [address] [place] [address] Reason Comments Pain Specialty Diagnoses / Procedures Referred By Contac t Referred To Contact Diagnoses Lumbar facet arthropathy Maik Barbosa MD [address] [place] [address] Referral ID Status Reason Start Date Expiration Date Visits Re quested Visits Authorized [id number] Closed 04/14/2021 05/09/2022 1 1 (unrecognized sect ion and content) No Status Records FoundNo Status Records FoundNo Status Records Found INFORMATION SOURCE (unrecogn ized section and content) DATE CREATED AUTHOR 05/10/2021 [facility] DATE CREATED AUTHOR AUTHOR'S ORGANIZ ATION 01/13/2023 [facility] DATE CREATED AUTHOR AUTHOR'S ORGANIZ ATION [facility]/27/2023 [facility] (unrecognized sec tion and content) Refuse Driver Relationship Specialty Start Date End Date Kell Bowling MD [address] [place] [address] PCP - General Family Medicine 02/10/21 FOR [...] BE BASED ON THE PRIMARY CLINICAL RECORDS. [employer] [facility]. provides no warranty or guarantee of the accuracy or completeness of information in this document.
[2023-11-13 11:35] VITALS: BP 127/79; PULSE 74; RESP 16; TEMP 36.3; O2SAT 98
[2023-11-13] MEDS: BUPIVACAINE HCL 0.25% PF 25 MG/10 ML VIAL 2 ML INJ (12:12)
[2023-11-13] MEDS: LIDOCAINE HCL 2% PF 100 MG/5 ML VIAL 1 ML INJ (12:12)
[2023-11-13] MEDS: TRIAMCINOLONE ACETONIDE 40 MG/ML VIAL INJ (12:12)
[2023-11-13 12:13] VITALS: BP 123/58; BP 126/78; PULSE 72; PULSE 75; RESP 18; O2SAT 97; O2SAT 98
--- NOTE | 2023-11-13 12:15 | W.PM.PROCNOT ---
Date of procedure: 11/13/23 Pre-op diagnosis: Sacroiliitis, left Post-op diagnosis: same as pre-op Procedure: Procedure: Left SIJ injection Medications: Bupivacaine 0.25% 3cc, kenalog 40mg After informed consent was obtained, the patient was brought to the medical procedure unit and placed in the prone position, when a timeout was completed verifying correct patient, procedure, site, positioning, implant, and/or special equipment.? The skin overlying the area was prepped and draped in standard sterile fashion using alcohol.? A 25-gauge needle was inserted towards the left sacroiliac joint under direct fluoroscopic imaging.? Needle tip was advanced until the joint was encountered.? We instilled a total of 3 mL of solution.? Postoperatively needles were removed.? The patient tolerated the procedure well without complication.? The patient reported reduction in pain symptoms postoperatively. Anesthesia: Local Surgeon: Luis Fairchild Pathology: none sent Condition: stable Disposition: no change
== END 2023-11-13 12:16 | disposition home or self-care (01) ==
PROVIDERS: PCP Family Medicine; Visit Provider Anesthesiology
DX: M46.1 Sacroiliitis, not elsewhere classified (principal)
CPT/HCPCS: 27096

== ENCOUNTER 2023-11-23 11:40 | Outpatient (OUT) | payer BC, SELFPAY ==
--- NOTE | 2023-11-23 11:44 | P.CN_ITS ---
Consult Note: HPI Data of Consult Patient: known to practice within the last 3 years Requesting Physician: Rhonda Cheng NP Primary Care Provider: Kell Jack MD Consult Narrative Reason for consult: f/u Narrative: Manuel Burgos a pleasant 53 year old male presents for evaluation and management of chronic back and SIJ pain. Recently underwent left SIJ with 75% improvement and pain and functional improvement. Today pain 1-2/10 ache. In the past noticed mild temporary relief from dry needling. At this time no benefit from PT/aquatherapy. Patient taking diclofenac 75mg BID PRN robaxin 500mg PRN and duloxetine 30 mg daily without side effects. Patient utilizing topical cream from transdermal therapeutics with benefit. Patient has been taking less diclofenac since RFA and SIJ injection, utilizing once daily at this time. cc:: CC: Rhonda Cheng NP Review of Systems ROS Status of ROS 10 or more systems reviewed and unremark able except as noted in history and below Musculoskeletal Reports: back pain and joint pain PFSH PFSH Medical History Heartburn ?R12 - Heartburn (ICD-10) Umbilical hernia ?K42.9 - Umbilical hernia without obstruction or gangrene (ICD-10) H/O retained foreign body fully removed ?Z87.821 - Personal history of retained foreign body fully removed (ICD-10) Hypertension ?I10 - Essential (primary) hypertension (ICD-10) Glaucoma ?H40.9 - Unspecified glaucoma (ICD-10) Surgical History History of surgery on right wrist ?Z98.890 - Other specified postprocedural states (ICD-10) H/O arthroscopy of shoulder ?Z98.890 - Other specified postprocedural states (ICD-10) H/O colonoscopy ?Z98.890 - Other specified postprocedural states (ICD-10) Family History Aunt Family history of cancer Grandmother Family history of cancer Grandfather Family history of cancer Other Family history of diabetes mellitus Family history of hypertension Family history of myocardial infarction Social History Within the past year, how often did you have a drink containing alcohol: 2-3 times a week Within the past year, how many standard drinks containing alcohol did you have on a typical day: 5 or 6 Within the past year, how often did you have six or more drinks on one occasion: weekly Total score: 7 Score interpretation: A score of 4 or more indicates drinking is likely to affect patient's safety. 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 Highest level of school completed/degree received: Associate degree: academic program Meds Home Medications and Allergies Home Medications Medication Instructions Recorded Confirmed Type ascorbic acid (vitamin C) 250 mg 250 mg PO DAILY 06/22/23 11/13/23 History tablet atenolol 50 mg-chlorthalidone 25 1 tab PO DAILY 06/22/23 11/13/23 History mg tablet diclofenac sodium 75 mg 75 mg PO BID 06/22/23 11/13/23 History tablet,delayed release duloxetine 30 mg capsule,delayed 30 mg PO DAILY 06/22/23 11/13/23 History release testosterone 1.62 % (20.25 mg/1.25 1 packet transdermal QAM 06/22/23 11/13/23 History gram) transdermal gel packet (AndroGel) vitamin B comp and C no.3 15 mg-10 1 cap PO DAILY 06/22/23 11/13/23 History mg-50 mg-5 mg-300 mg capsule (B Complex Plus Vitamin C) methocarbamol 750 mg tablet 750 mg PO TID 08/31/23 11/13/23 History Allergies Allergy/AdvReac Type Severity Reaction Status Date / Time No Known Drug Allergies Allergy Verified 11/13/23 11:39 Exam Constitutional Documenting provider has reviewed patient's vital signs: yes Common normals: no apparent distress, oriented x3, healthy appearing, alert and well nourished General appearance: cooperative [facility] Common normals: normocephalic, hearing grossly normal bilaterally and moist oral mucous membranes Head and scalp: normocephalic Eye Common normals: PERRL Pupil: PERRL Neck & C-Spine Common normals: full ROM General: normal visual inspection Chest Common normals: inspection of chest normal Respiratory Common normals: normal respiratory effort, no retractions and no use of accessory muscles Back & Pelvis Lumbar spine/lower back: normal to inspection Sacroiliac joints: SI joints normal Other: mild positive facet loading negative pain over PSIS, negative katia fadir thigh thrust Extremity Common normals: normal to inspection and full ROM Neuro Common normals: oriented x3, CN's II-XII intact bilaterally, moves all extremities, no focal motor deficits, no sensory deficits noted and deep tendon reflexes 2+ bilaterally Sensorium/orientation: alert Motor exam: strength 5/5 throughout and no movement abnormalities noted Psych Common normals: mental status grossly normal, thought process normal, cooperative, affect normal, speech normal and activity/motor behavior normal Speech: normal speech Thought process: normal thought process Results Additional Findings Additional findings: If on a controlled substance or opioids, I have checked an [place]ARRS report on this patient and there are no aberrancies noted in the prescribing history.??If on a controlled substance or opioid a drug screen was completed and reviewed within the last year, and if there has not been a drug screen completed we ordered one today to monitor higher risk, state monitored pain medication use. As part of providing excellent, safe, comprehensive care, the following was c ompleted at our patient's visit: 1. A medication reconciliation and review to ensure accurate knowledge of current/active medications, including asking our patients to inform us about any [id number] medications or herbal remedies/nutritional supplements/alternative remedies. 2. A review to specifically ensure our patients have had annual screening for screening for depression, screening for tobacco use, and screening for unhealthy alcohol use. For concerning screenings had a discussion with the patient, provided patient education, and recommended follow-up with primary care provider when appropriate. If patient noted with a risk of falling, they received education on strength, gait, and balance training to prevent future risk of falling. Assessment and Plan Assessment and Plan (1) Sacroiliitis: (2) Myofascial pain: (3) Lumbar spondylosis: Plan continue HEP/PT as tolerated continue current medications, tolerating well without side effects continue transdermal therapeutics cream f/u as needed
--- OUTSIDE RECORDS SUMMARY | 2023-11-23 11:52 | XMS_ITS | CCD ---
Author Name Unknown Address [address] [place] [address] Organization [facility] Care Team Providers Care Brooch Maker Novelty Name Role Phone Kell Bowling MD Primary Care Provider TAWNYA, DR KELL Monet Primary Care Unavailable KASSIE Isidro, DR LIZBETH Donald Attending Unavaila marilin Isidro, DR LIZBETH Donald Consulting Unavaila marilin Isidro, DR LIZBETH Donald Admitting Unavaila marilin BOWLING, DR KELL Monet Primary Care Unavailable FISHER [...] CONNIE Monet Admitting Unavaila ble LAURY, DR CHRISTOFER Hernandez Consulting Unavailable BOWLING, DR KELL Monet Primary Care Unavailable PHILLIP ., DR CINTRON Attending Unavailable FISHER ., DR CINTRON Consulting Unavailable FISHER ., DR CINTRON Admitting Unavailable BOWLING, DR KELL Monet Admitting Unavailable BOWLING, DR KELL Monet Attending Unavailable BOWLING, DR KELL Monet Consulting Unavailable BOWLING, DR KELL Monet Primary Care Unavailable Chata Page Attending Unavailable Chata Page Attending Unavailable Chata Page Attending Unavailable Kell Bowling Unavailable Gurinder FERMIN, Luis Stallings Attending Unavailable Allergies Allergy Classification Reported Allergen(s) Allergy Type Date of Onset Reaction(s) Facility (2 sources) patient allergy list reviewed by nurse or physicia Propensity to adverse reactions 9 Comment:Done [facility] Other (2 sources) Allergies Reconciled Propensity to adverse reactions Unknown [facility] Other Medications Current Medications Medication Drug Class(es) Dates Sig (Normalized) Sig (Original) Amoxicillin (1 source) Penicillin-class Antibacterial Amoxicillin Active Atenolol / Chlorthalidone (7 sources) Thiazide-like Diuretic, beta-Adrenergic Daron Start: 08-22-2022 take 1 tablet by mouth once daily Atenolol-Chlortha lidone 50-25mg atenoloL-chlortha lidone 50-25mg, 1 (one) Tablet daily # 90, 08/22/2022, Ref. x1. Active oral daily for 90 *Pick strength-form from [employer] for eRX* Aug, Active Start: 02-05-2021 atenolol-chlor thalidone 50-25 MG tablet cyclobenzaprine hydrochloride 10 mg oral tablet (7 sources) Muscle Relaxant Start: 05-31-2022 take 1 tablet by mouth three times daily as needed cyclobenzaprine 10mg cyclobenzaprine 10mg, 1 (one) Tablet three times daily, as needed # 30, 05/31/2022, No Refill. Active oral three times daily, as needed for 0 *Reorder from [facility] for eRx and Interaction Alerts* May, Active [...] Refill. Active transdermal for 0 *Reorder from [facility] for eRx and Interaction Alerts* May, Active [...] Chata Page MD Where: [facility] Normal [facility] Lab Reportson 07-26-2023 Lab Reports [id number]#1.00TIFF Normal [facility] Lab Reports [id number]#1.00TI FF Normal [facility] Medication Consenton 023 Medication Consent [id number]#1.00TI FF Normal [facility] Patient Educationon 07-26-20 23 Patient Education [...] Follow these instructions at home: ? Take [id number] and prescription medicines only as told by [...] from the medicine (more content not included)... [facility] Reminderson 07-26-2023 Reminders - From: Meme Haley To: EU - Recalls Lue; Sent: 07/26/2023 11:33:52 EST Show up: 05/26/2024 12:33:00 EDT Subject: Labs Due Date/Time: 07/26/2024 11:33:00 EST Pt will need T Level, HCT and PSA prior to appt. PSA is done by PCP. [facility] Screenson 07-26-2023 Screens [id number]#1.00TI FF [facility] Screens [id number]#1.00TI FF [facility] Urology Office/Clinic Noteon 07-26-2023 Urology Office/Clinic Note Chief Complaint 6m Testosterone Level HPI Staff 6m Testosterone Level DX: Hypogonadism, Impotence & BPH *Cialis 10mg PRN (occasionally uses 20mg) & Androgel 2 pumps qd PSA 07/05/23- 0.78 CBC/CMP 07/05/23 *BUN 21.0 & Crea 1.48 eGFR 50 *Hgb 12.3 & Hct 38.9 A1C 07/05/23- 5.8 Testosterone 07/20/23- 366 (696-080) Pt has no concerns at this time. [...] 324 07/19/21 - 754 07/20/23 - 366 (820-303) Hgb 12.3 & Hct 38.9 Reviewed labs [...] and HCT Patient Education Benign Prostatic Hyperplasia IMeme, personally scribed for Dr. Page on 07/26/2023 [...] mRNA BNT-162b2 vax (more content not included)... [facility] Comment on above: Result Comment: Elec tronically Signed By: Chata Page MD\.br\Date and Time Signed: 07/26/23 08:57 EST\.br\Electronically Co-Signed By: Meme Haley\.br\Date and Time Co-Signed: 07/26/23 08:37 EST Lab Reportson 07-24-2023 Lab Reports [id number]#1.00TIF F [facility] Ambulatory Visit Summaryon 0 01-11-2023 Ambulatory Visit Summary MANUEL ROSAS :1970 Visit Date:01/11/2023 Ambulatory Visit Instructions Your Diagnosis Impotence Male hypogonadism BPH (benign prostatic hyperplasia) Tests Performed Urnls Dip Stick Auto w/o Microscopy POC 91190 Your Care Team Attending Physician - Chata [...] provider. Document Revised: 08/03/2020 Document Reviewed: 08/03/2020 [employer] Patient Education ? 2022 [employer]. Normal [facility] Screenson 01-11-2023 Screens [id number]#1.00CD :127 Normal [facility] Screens [id number]#1.00CD :127 [facility] Urology Office/Clinic Noteon 01-11-2023 Urology Office/Clinic Note Chief Complaint 6 month follow up HPI Staff 6 month follow up w/testosterone level 487 done 01/06/23, previous testosterone level 410 done 06/20/22. Previous DX: BPH, impotence, male hypogonadism. Pt is currently taking Cialis 10mg PRN, and AndroGel 2 pumps daily-refill on both medications sent to [facility] in [place]. IPSS is , MAKI 22. Dysuria: denies [...] Androgel 2 pumps daily. Refill sent to [facility]. Good range and sx improvement, prior CBC [...] Urine Dips (more content not included)... [facility] Comment on above: Result Comment: Elec tronically Signed By: Chata Page MD.br\Date and Time Signed: 01/11/23 19:10 EDT\.br\Electronically Co-Signed By: Ericka Mcconnell\.br\Date and Time Co-Signed: 01/11/23 10:32 EDT Lab Reportson 01-10-2023 Lab Reports [id number]#1.00CD: 127 Normal [facility] TESTOSTERONE, TOTALon 2022 Testosterone [Mass/Vol] 487 ng/dL Normal 264-916 [facility] Comment on above: Result Comment: Adul t male reference interval is based on a population of healthy nonobese males (BMI <30) between 19 and 39 years old. bouchra Quinones.al. JCEM 2017,102;7922-4287. PMID: 33952117. Performed By: #### T ESTTOT #### [facility] [address] [place] [address] Dr. Mychal Oropeza Pre-Certification Formon Pre-Certification Form [id number]#1.00CD: 127 Normal [facility] Pre-Certification Formon Pre-Certification Form [id number]#1.00CD: 127 Normal [facility] Pre-Certification Formon Pre-Certification Form [id number]#1.00CD: 127 Normal [facility] US SINGLE QUAD RT UPPERon US [...] 2. Unremarkable gallbladder. Electronically authenticated by: CHRISTOFER BEVERLYJANETH Date: 2022-08-25 07:07 [facility] Historical Records Officeon 08-19-2022 Historical Records Office [id number]#1.00CD: 127 Normal [facility] Pre-Certification Formon Pre-Certification Form [id number]#1.00CD: 127 Normal [facility] Patient Letter FTMCon 2021 Patient Letter [facility] (Inserted Image. Nga ble to display) August 18, 2022 MANUEL ROSAS [address] [place] [address] MANUEL ROSAS 1970 Dear Whomever it may [...] Sincerely, Dr. Chata Page MD [facility] [address] [place] [address] [place] [address] Normal [facility] TESTOSTERONE, TOTALon 2021 Testosterone [Mass/Vol] 410 ng/dL Normal 264-916 [facility] Comment on above: Result Comment: Adul t male reference interval is based on a population of healthy nonobese males (BMI <30) between 19 and 39 years old. Joni et.al. JCEM 2017,102;7265-4932. PMID: 10090615. Performed By: #### T ESTTOT #### [facility] [address] [place] [address] Dr. Mychal Oropeza CBC AUTO DIFFon 05-27-2022 BASO # 0.1 103/ul Normal 0.0-0.1 [facility] Comment on above: Performed By: #### C BC #### [facility] [address] [place] [address] Dr. Mychal Oropeza Basophils/100 WBC (Bld) 0.9 % Normal 0.2-2.0 [facility] Comment on above: Performed By: #### C BC #### [facility] [address] [place] [address] Dr. Mychal Oropeza EO # 0.7 103/ul Normal 0.0-0.7 [facility] Comment on above: Performed By: #### C BC #### [facility] [address] [place] [address] Dr. Mychal Oropeza Eosinophils/100 WBC (Bld) 6.7 % Normal 0.9-7.0 [facility] Comment on above: Performed By: #### C BC #### [facility] [address] [place] [address] Dr. Mychal Oropeza Erythrocyte distribution width (RBC) [Ratio] 12.8 % Normal 11.0-15.0 [facility] Comment on above: Performed By: #### C BC #### [facility] [address] [place] [address] Dr. Mychal Oropeza Hematocrit (Bld) [Volume fraction] 46.9 % Normal 42.0-54.0 [facility] Comment on above: Performed By: #### C BC #### [facility] [address] [place] [address] Dr. Mychal Oropeza Hemoglobin (Bld) [Mass/Vol] 16.2 g/dL Normal 14.0-18.0 [facility] Comment on above: Performed By: #### C BC #### [facility] [address] [place] [address] Dr. Mychal Oropeza IG # 0.04 10e3/ul Critically high 0.00-0.03 [facility] Comment on above: Performed By: #### C BC #### [facility] [address] [place] [address] Dr. Mychal Oropeza IG % 0.4 % Normal 0.0-0.5 [facility] Comment on above: Performed By: #### C BC #### [facility] [address] [place] [address] Dr. Mychal Oropeza LYMPH # 4.1 103/ul Critically high 1.2-3.[address] [facility] Comment on above: Performed By: #### C BC #### [facility] [address] [place] [address] Dr. Mychal Oropeza Lymphocytes/100 WBC (Bld) 37.7 % Normal 20.5-60.0 [facility] Comment on above: Performed By: #### C BC #### [facility] [address] [place] [address] Dr. Mychal Oropeza MANUAL DIFF REQ NO Normal [facility] Comment on above: Performed By: #### C BC #### [facility] [address] [place] [address] Dr. Mychal Oropeza MCH (RBC) [Entitic mass] 30.7 pg Normal 25.9-34.0 [facility] Comment on above: Performed By: #### C BC #### [facility] [address] [place] [address] Dr. Mychal Oropeza MCHC (RBC) [Mass/Vol] 34.5 g/dL Normal 29.9-35.2 [facility] Comment on above: Performed By: #### C BC #### [facility] [address] [place] [address] Dr. Mychal Oropeza MCV (RBC) [Entitic vol] 88.8 fL Normal 80.0-94.0 [facility] Comment on above: Performed By: #### C BC #### [facility] [address] [place] [address] Dr. Mychal Oropeza MONO # 0.9 103/ul Critically high 0.3-0.[address] [facility] Comment on above: Performed By: #### C BC #### [facility] [address] [place] [address] Dr. Mychal Oropeza Monocytes/100 WBC (Bld) 8.1 % Normal 1.7-12.0 [facility] Comment on above: Performed By: #### C BC #### [facility] [address] [place] [address] Dr. Mychal Oropeza NEUT # 5.1 103/ul Normal 1.4-6.5 [facility] Comment on above: Performed By: #### C BC #### [facility] [address] [place] [address] Dr. Mychal Oropeza Neutrophils/100 WBC (Bld) 46.2 % Normal 43.0-75.0 [facility] Comment on above: Performed By: #### C BC #### [facility] [address] [place] [address] Dr. Mychal Oropeza Platelet mean volume (Bld) [Entitic vol] 9.7 fL Normal 9.5-13.5 [facility] Comment on above: Performed By: #### C BC #### [facility] [address] [place] [address] Dr. Mychal Oropeza PLT 308 103/ul Normal 150-450 [facility] Comment on above: Performed By: #### C BC #### [facility] [address] [place] [address] Dr. Mychal Oropeza RBC 5.28 106/ul Normal 4.70-6.10 [facility] Comment on above: Performed By: #### C BC #### [facility] [address] [place] [address] Dr. Mychal Oropeza WBC 10.9 103/ul Normal 4.0-11.0 [facility] Comment on above: Performed By: #### C BC #### [facility] [address] [place] [address] Dr. Mychal Oropeza GLYCOHEMOGLOBIN A1Con 2021 ADA RECOMMENDATION SEE BELOW Normal [facility] Comment on above: Result Comment: ADA RECOMMENDED LIMIT 4.0 - 6.0 ADA THERAPEUTIC TARGET < 7.0 ACTION SUGGESTED > 7.0 Performed By: #### A 1C #### [facility] [address] [place] [address] Dr. Mychal Oropeza Glucose [Mass/Vol] 108 mg/dL Normal [facility] Comment on above: Performed By: #### A 1C #### [facility] [address] [address] [address] Mychal Oropeza HbA1c (Bld) [Mass fraction] 5.4 % Normal 4.5-6.2 [facility] Comment on above: Performed By: #### A 1C #### [facility] [address] [address] [address] Mychal rOopeza LIPID PROFILEon 05-27-2022 CHOL-HDL RATIO NORM SEE BELOW Normal [facility] Comment on above: Result Comment: 3.3 - 4.4 LOW RISK 4.4 - 7.1 AVERAGE RISK 7.1 - 11.0 MODERATE RISK >11.0 HIGH RISK Performed By: #### T SH, LIPID, CMP #### [facility] [address] [address] [address] Mychal Oropeza Cholesterol [Mass/Vol] 207 mg/dL Critically high <=200 [facility] Comment on above: Performed By: #### T SH, LIPID, CMP #### [facility] [address] [address] [address] Mychal Oropeza Cholesterol in HDL [Mass/Vol] 47 mg/dL Normal 40-60 [facility] Comment on above: Performed By: #### T SH, LIPID, CMP #### [facility] [address] [address] [address] Mychal Oropeza Cholesterol in LDL [Mass/Vol] 122.4 mg/dL Normal [facility] Comment on above: Performed By: #### T SH, LIPID, CMP #### [facility] [address] [address] [address] Mychal Oropeza Cholesterol.total/Ch olesterol in HDL [Mass ratio] 4.4 {ratio} Normal [facility] Comment on above: Performed By: #### T SH, LIPID, CMP #### [facility] [address] [address] [address] Mychal Oropeza HDL NORMAL > or = 60 mg/dl - LO W CARDIOVASCULAR RISK <40 mg/dl - HIGH CARDIOVASCULAR RISK Normal [facility] Comment on above: Performed By: #### T KADIE, LIPID, CMP #### [facility] [address] [address] [address] Mychal Oropeza LDL CALC NORMAL SEE BELOW Normal [facility] Comment on above: Result Comment: <100 mg/dl OPTIMAL 100 - 129 mg/dl NEAR OR ABOVE OPTIMAL 130 - 159 mg/dl BORDERLINE HIGH 160 - 189 mg/dl HIGH >190 mg/dl VERY HIGH Performed By: #### T KADIE, LIPID, CMP #### [facility] [address] [address] [address] Mychal Oropeza Triglyceride [Mass/Vol] 188 mg/dL Critically high <=150 [facility] Comment on above: Performed By: #### T KADIE, LIPID, CMP #### [facility] [address] [address] [address] Mychal Oropeza VLDL CALC 37.6 mg/dL Normal [facility] Comment on above: Performed By: #### T KADIE, LIPID, CMP #### [facility] [address] [address] [address] Mychal Oropeza PROF 14(COMP METB)on 022 Albumin [Mass/Vol] 3.9 g/dL Normal 3.4-5.0 [facility] Comment on above: Performed By: #### T KADIE, LIPID, CMP #### [facility] [address] [address] [address] Mychal Oropeza Albumin/Globulin [Mass ratio] 1.1 {ratio} Normal [facility] Comment on above: Performed By: #### T KADIE, LIPID, CMP #### [facility] [address] [address] [address] Mychal Oropeza ALP [Catalytic activity/Vol] 77 U/L Normal 46-116 [facility] Comment on above: Performed By: #### T KADIE, LIPID, CMP #### [facility] [address] [address] [address] Mychal Oropeza ALT [Catalytic activity/Vol] 56 U/L Normal 16-63 [facility] Comment on above: Performed By: #### T KADIE, LIPID, CMP #### [facility] [address] [address] [address] Mychal Oropeza Anion gap [Moles/Vol] 8.6 mmol/L Normal [facility] Comment on above: Performed By: #### T SH, LIPID, CMP #### [facility] [address] [address] [address] Mychal Oropeza AST [Catalytic activity/Vol] 30 U/L Normal 15-37 [facility] Comment on above: Performed By: #### T SH, LIPID, CMP #### [facility] [address] [place] [address] Dr. Mychal Oropeza Bilirubin [Mass/Vol] 0.6 mg/dL Normal 0.2-1.0 [facility] Comment on above: Performed By: #### T SH, LIPID, CMP #### [facility] [address] [place] [address] Dr. Mychal Oropeza Calcium [Mass/Vol] 9.2 mg/dL Normal 8.5-10.1 [facility] Comment on above: Performed By: #### T SH, LIPID, CMP #### [facility] [address] [place] [address] Dr. Mychal Oropeza Chloride [Moles/Vol] 100 mmol/L Normal 98-107 [facility] Comment on above: Performed By: #### T SH, LIPID, CMP #### [facility] [address] [place] [address] Dr. Mychal Oropeza CO2 [Moles/Vol] 30.0 mmol/L Normal 21.0-32.0 [facility] Comment on above: Performed By: #### T SH, LIPID, CMP #### [facility] [address] [place] [address] Dr. Mychal Oropeza Creatinine [Mass/Vol] 1.37 mg/dL Critically high 0.70-1.30 [facility] Comment on above: Performed By: #### T SH, LIPID, CMP #### [facility] [address] [place] [address] Dr. Mychal Oropeza EGFR-AF CYPRIOT >60 Normal >=60 [facility] Comment on above: Performed By: #### T SH, LIPID, CMP #### [facility] [address] [address] [address] Mychal Oropeza EGFR-NON AF CYPRIOT 55 mL/min/1.73m2 Critically low >=60 [facility] Comment on above: Performed By: #### T SH, LIPID, CMP #### [facility] [address] [place] [address] Dr. Mychal Oropeza Globulin (S) [Mass/Vol] 3.7 g/dL Normal [facility] Comment on above: Performed By: #### T SH, LIPID, CMP #### [facility] [address] [place] [address] Dr. Mychal Oropeza Glucose [Mass/Vol] 111 mg/dL Critically high 74-[address] [facility] Comment on above: Performed By: #### T SH, LIPID, CMP #### [facility] [address] [place] [address] Dr. Mychal Oropeza Potassium [Moles/Vol] 3.6 mmol/L Normal 3.5-5.1 [facility] Comment on above: Performed By: #### T SH, LIPID, CMP #### [facility] [address] [place] [address] Dr. Mychal Oropeza Protein [Mass/Vol] 7.6 g/dL Normal 6.4-8.2 [facility] Comment on above: Performed By: #### T SH, LIPID, CMP #### [facility] [address] [place] [address] Dr. Mychal Oropeza Sodium [Moles/Vol] 135 mmol/L Critically low 136-145 [facility] Comment on above: Performed By: #### T SH, LIPID, CMP #### [facility] [address] [place] [address] Dr. Mychal Oropeza Urea nitrogen [Mass/Vol] 14.0 mg/dL Normal 7.0-18.0 [facility] Comment on above: Performed By: #### T SH, LIPID, CMP #### [facility] [address] [place] [address] Dr. Mychal Oropeza Urea nitrogen/Creatinine [Mass ratio] 10.2 mg/mg Normal [facility] Comment on above: Performed By: #### T SH, LIPID, CMP #### [facility] [address] [place], [place] [address] Dr. Mychal Oropeza TSHon 05-27-2022 TSH 2.907 uIU/mL Normal 0.358-3.740 [facility] Comment on above: Performed By: #### T SH, LIPID, CMP #### [facility] [address] [place], [place] [address] Dr. Mychal Oropeza TESTOSTERONE, TOTALon 2021 Testosterone [Mass/Vol] 324 ng/dL Normal 264-916 [facility] Comment on above: Result Comment: Adul t male reference interval is based on a population of healthy nonobese males (BMI <30) between 19 and 39 years old. bouchra Quinones.al. JCEM 2017,102;5593-6347. PMID: [id number]. Performed By: #### T ESTTOT #### [facility] [address] [place], [place] [address] Dr. Mychal Oropeza XR SPINE CERVICAL WITH [...] No instability is noted. Normal [facility] XR SPINE LUMBAR W BENDINGon [...] of motion without instability. Normal [facility] XR SPINE LUMBAR W BENDINGOrd ered By: Maik Barbosa on 02-10-2021 IMPRESSION: Lumbar s pine visually is fairly well preserved. There is no evidence of fracture, listhesis, significant disc space narrowing or major degenerative changes. There is a very good range of motion without instability. [employer] EXAM: XR SPINE LUMBA R W BENDING [...] motion. There is no listhesis or instability. [employer] User, Interfaces - 02/10/2021 4:52 PM EDT [...] very good range of motion without instability. [facility] Vital Signs Date Time Vital Sign Value Performing Clinician Facility 08-31-2023 15:30-0500 Body height 170.18 cm Kell Bowling Other [facility] Other 08-31-2023 15:30-0500 Body mass index (BMI) [Ratio] 33.04 kg/m2 Kell Bowling Other [facility] Other 08-31-2023 15:30-0500 Body weight 95.71 kg Kell Bowling Other [facility] Other 08-31-2023 15:30-0500 Diastolic blood pressure 77 mm[Hg] Kell Bowling Other [facility] Other 08-31-2023 15:30-0500 Systolic blood pressure 119 mm[Hg] Kell Bowling Other [facility] Other 08-01-2023 08:30-0500 Body height 170.18 cm Kell Bowling Other [facility] Other 08-01-2023 08:30-0500 Body mass index (BMI) [Ratio] 35.14 kg/m2 Kell Bowling Other [facility] Other 08-01-2023 08:30-0500 Body weight 101.79 kg Kell Bowling Other [facility] Other 08-01-2023 08:30-0500 Diastolic blood pressure 82 mm[Hg] Kell Bowling Other [facility] Other 08-01-2023 08:30-0500 Systolic blood pressure 118 mm[Hg] Kell Bowling Other [facility] Other 04-16-2021 12:05-0400 Diastolic blood pressure 97 mm[Hg] Maik Barbosa MD Work Phone: [facility] [employer] [facility] 04-16-2021 12:05-0400 Heart rate 54 /min Maik Barbosa MD Work Phone: [facility] 04-16-2021 12:05-0400 Respiratory rate 16 /min Maik Barbosa MD Work Phone: [facility] 04-16-2021 12:05-0400 SaO2% (BldA) [Mass fraction] 95 % Maik Barbosa MD Work Phone: [facility] [employer] [facility] 04-16-2021 12:05-0400 Systolic blood pressure 142 mm[Hg] Maik Barbosa MD Work Phone: [facility] 03-17-2021 08:04-0400 Body height 170.2 cm Maik Barbosa MD Work Phone: [facility] 03-17-2021 08:04-0400 Body mass index (BMI) [Ratio] 34.61 kg/m2 Maik Barbosa MD Work Phone: [facility] [employer] [facility] 03-17-2021 08:04-0400 Body weight 100.25 kg Maik Barbosa MD Work Phone: [facility] 03-17-2021 08:04-0400 Diastolic blood pressure 93 mm[Hg] Maik Barbosa MD Work Phone: [facility] 03-17-2021 08:04-0400 Heart rate 74 /min Maik Barbosa MD Work Phone: [facility] 03-17-2021 08:04-0400 Respiratory rate 20 /min Maik Barbosa MD Work Phone: [facility] 03-17-2021 08:04-0400 SaO2% (BldA) [Mass fraction] 96 % Maki Barbosa MD Work Phone: [facility] 03-17-2021 08:04-0400 Systolic blood pressure 132 mm[Hg] Maik Barbosa MD Work Phone: [facility] 02-24-2021 12:02-0400 Diastolic blood pressure 100 mm[Hg] Maik Barbosa MD Work Phone: [facility] 02-24-2021 12:02-0400 Heart rate 55 /min Maik Barbosa MD Work Phone: [facility] 02-24-2021 12:02-0400 Respiratory rate 18 /min Maik Barbosa MD Work Phone: [facility] 02-24-2021 12:02-0400 SaO2% (BldA) [Mass fraction] 95 % Maik Barbosa MD Work Phone: [facility] 02-24-2021 12:02-0400 Systolic blood pressure 141 mm[Hg] Maik Barbosa MD Work Phone: [facility] 02-10-2021 11:46-0400 Body height 170.2 cm Maik Barbosa MD Work Phone: [facility] 02-10-2021 11:46-0400 Body mass index (BMI) [Ratio] 34.61 kg/m2 Maik Barbosa MD Work Phone: [facility] 02-10-2021 11:46-0400 Body weight 100.25 kg Maik Barbosa MD Work Phone: [facility] 02-10-2021 11:46-0400 Diastolic blood pressure 81 mm[Hg] Maik Barbosa MD Work Phone: [facility] 02-10-2021 11:46-0400 Heart rate 64 /min Maik Barbosa MD Work Phone: [facility] 02-10-2021 11:46-0400 Respiratory rate 18 /min Maik Barbosa MD Work Phone: [facility] 02-10-2021 11:46-0400 SaO2% (BldA) [Mass fraction] 99 % Maik Barbosa MD Work Phone: [facility] 02-10-2021 11:46-0400 Systolic blood pressure 121 mm[Hg] Maik Barbosa MD Work Phone: [facility] Encounters Encounter Date Encounter Type Care Provider Facility Start: 07-31-2024 ambulatory Chata Page Facility:[facility] Start: 11-13-2023 End: 11-14-2023 ambulatory Luis Fairchild MD Facility: [facility] Start: 08-31-2023 End: 08-31-2023 ambulatory Kell Bowling Other [facility] Other Start: 08-31-2023 Office outpatient vi sit 15 minutes Kell Bowling [facility] Start: 08-01-2023 End: 08-01-2023 ambulatory Kell Bowling Other [facility] Other Start: 08-01-2023 Encounter for genera l adult medical examination without abnormal findings Kell Bowling [facility] Start: 08-01-2023 Periodic preventive med est patient 40-64yrs Kell Bowling [facility] Start: 07-26-2023 End: 07-27-2023 ambulatory Chata Page Facility:[facility] Start: 01-11-2023 End: 01-12-2023 ambulatory Chata Page Facility:[facility] Start: 01-06-2023 End: 01-07-[address] KELL BOWLING Facility:[facility] Start: 08-24-2022 End: 08-25-[address] KELL BOWLING Facility:[facility] Start: 08-08-[address] KELL BOWLING Facil ity:[facility] Start: 07-30-[address] KELL BOWLING Facil ity:[facility] Start: 07-25-[address] KLEL BOWLING Facil ity:[facility] Start: 07-21-2022 End: 07-22-[address] MEENU ORELLANA . Facility:[facility] Start: 06-20-2022 End: 06-21-[address] KELL BOWLING Facility:[facility] Start: 05-30-2022 Encounter for genera l adult medical examination without abnormal findings [facility] Start: 05-27-2022 End: 05-28-[address] KELL BOWLING Facility:[facility] Start: 05-27-2022 End: 05-28-2022 Encounter for general adult medical examination without abnormal findings DR KELL BOWLING Facility:[facility] Start: 01-19-2022 End: 01-20-[address] KELL BOWLING Facility:[facility] Start: 04-16-2021 End: 04-16-2021 Patient encounter procedure Maik Barbosa MD Work Phone: [facility] Comment on above: Lumbar spondylosis ( Primary Dx); Chronic pain syndrome; Myofascial pain Start: 03-17-2021 End: 03-17-2021 Office outpatient visit 15 minutes Maik Barbosa MD Work Phone: [facility] Comment on above: Lumbar spondylosis ( Primary Dx); Lumbar radiculopathy; Spinal stenosis of cervical region; Chronic pain syndrome; Myofascial pain Start: 02-24-2021 End: 02-24-2021 Clinical Support Encounter Maik Barbosa MD Work Phone: [facility] Comment on above: Myofascial pain (Ara reji Dx) Start: 02-10-2021 End: 02-10-2021 Subsequent hospital visit by physician Maik Barbosa MD Work Phone: [facility] Comment on above: Arrived Start: 02-10-2021 End: 02-10-2021 Office outpatient new 45 minutes Maik Barbosa MD Work Phone: [facility] Comment on above: Myofascial pain (Ara reji Dx); Arthropathy of cervical facet joint; Spondylosis of lumbar region without myelopathy or radiculopathy; Chronic pain syndrome; Compliance with medication regimen Procedures Date Procedure Procedure Detail Performing Clinician Start: 05-27-[address] KELL BOWLING Comment on above: Performed By: #### [facility] #### [facility] [address] [place] [address] Dr. Mychal Oropeza Start: 02-10-2021 Radex spine lumbscrl compl w/bending views min 6 Maik Barbosa MD Work Phone: Plan of Treatment Date Care Activity Detail Author Start: 05-21-2021 End: 05-21-2021 Patient encounter procedure 05/21/2021 Office Visit Anesthesiology Pain Mgt Maik Barbosa MD [address] [place] [address] [facility] Start: 05-12-2021 Influenza vaccination A [facility] Start: 05-07-2021 End: 05-07-2021 Patient encounter procedure 05/07/2021 Office Visit Anesthesiology Pain Mgt Maik Barbosa MD [address] [place] [address] [facility] Start: 05-03-2021 End: 05-03-2021 Patient encounter procedure 05/03/2021 Office Visit Anesthesiology Pain Maik Carbajal MD [address] [place] [address] [phone] [facility] Start: 04-27-2021 End: 04-27-2021 Patient encounter procedure 04/27/2021 Office Visit Anesthesiology Pain Mgt Maik Barbosa MD [address] [place] [address] [facility] Start: 03-17-2021 End: 03-17-2021 Patient encounter procedure 03/17/2021 Office Visit Anesthesiology Pain Mgt Maik Barbosa MD [address] [place] [address] [phone] [facility] Start: 02-24-2021 End: 02-24-2021 Patient encounter procedure 02/24/2021 Office Visit Anesthesiology Pain Mgt Maik Barbosa MD [address] [place] [address] [phone] [facility] Start: 02-10-2021 End: 02-11-2021 DRUG SCREEN MED COMPLIANCE I DRUG SCREEN MED COMPLIANCE I Lab Routine Compliance with medication regimen Expected: 02/10/2021, Expires: 02/11/2021 [facility] Comment on above: Expected: 02/10/2021 , Expires: 02/11/2021 Start: 02-08-2020 Prostate specific antigen measurement PROSTATE CANCER SCREENING DISCUSSION [facility] Start: 02-08-2020 Zoster vaccine hzv l wilmar for subcutaneous use ZOSTER (SHINGLES) VACCINE (1 of 2) [facility] Start: 2015 Colonoscopy COLORECTAL CAN CER SCREENING DISCUSSION [facility] Start: 2010 Fasting lipid profile LIPID SCREENIN G [facility] Start: 1989 Third diphtheria, tetanus and acellular pertussis (DTaP) vaccination TDAP (ADULT) [facility] Start: 02-08-1988 Tetanus vaccination TETANUS [facility] Start: 1985 HIV screening HIV SCREENING DISCUSSI ON [facility] Start: 1982 COVID-19 VACCINE (1) COVID-19 VACCIN E (1) [facility] Start: 1970 Hepatitis C antibody , confirmatory test HEPATITIS C VIRUS SCREENING [facility] Payers Date Payer Category Payer Unknown 2022 Unknown [id number] 2019 Unknown [id number] 2018 Unknown [id number]. [id number] 1970 Unknown [id number] 2.16.84 [id number] 1970 Unknown [id number] 2.16.84 [id number] 1970 Unknown [id number] 2.16.84 [id number] 1970 Unknown [id number] 2.16.84 [id number] 1970 Unknown [id number] 2.16.84 [id number] 1970 Unknown [id number] 2.16.84 [id number] 1970 Unknown [id number] 2.16.84 [id number] 1970 Unknown [id number] 2.16.84 [id number] 1970 Unknown [id number] 2.16.8 [id number] 1970 Unknown [id number] 2.16.8 [id number] 1970 Unknown [id number] 2.16.8 [id number] 1970 Unknown [id number] 2.16. [id number] 1959 Self-pay [id number] Unknown [id number] 2.16.84 [id number] Unknown [id number] Social History Date Type Detail Facility Start: 02-10-2021 End: 03-17-2021 Tobacco smoking status NHIS Never smoker [facility] Start: 02-10-2021 End: 03-17-2021 Tobacco use and exposure Never used [facility] Start: 02-10-2021 End: 03-17-2021 Alcohol intake Current drinker of alcohol (finding) [facility] Start: 02-10-2021 End: 03-17-2021 Alcohol intake [facility] Start: 02-10-2021 Alcohol Comment 5 beers/week [email or web address] Start: 1970 Sex Assigned At Not on file A Feesheh Sex Assigned At Sex Assigned At Bir th [facility] Other Clinical Notes 02-10-2021 to 08-31-2023 Note [...] index [BMI] 33.0-33.9, adult (ICD-10 - Z68.33) [facility] Other [id number] Evaluation note* Encounter Date Diagnosis Assessment Notes [...] (ICD-10 - M54.50) Pt requests referral to [place]. He hopes to lessen his use of NSAIDs to improve his renal function. Jul, Other chronic pain (ICD-10 - G89.29) Jul, JOSÉ (obstructive sleep apnea) (ICD-10 - G47.33) Form completed for [facility]. Jul, Class 2 obesity [...] to ER and Follow-up with me immediately. [facility] Other 08-06-2021 History and physical note* Maik [...] bilateral lumbar facet block documented in this [facility]08-06-2021 History of Present illness Narrative* Humera Genao RN - 04/16/2021 11:30 AM EDT SCRUB - Shellie Alaniz RN RT - S RT Zach DATA SOLUTIONS ARCHITECT - N/A BROTH SETTER - Aurelio Genao RN Site cleansed with [...] and earlier as needed. documented in this [facility]08-06-2021 Instructions* Patient Instructions* Geovanna Degroot RN - 04/16/2021 11:30 AM EDT [facility] WHAT TO EXPECT AFTER A PROCEDURE Follow up appointment: Call the office ([phone]) if you have any questions or develop [...] to call us at . [facility], [facility] History of Present illness Narrative* [...] tried OTC tylenol, celebrex with somemild relief. Timber has helped in the past, but would [...] Denies dysuria or frequency documented in this [facility]07-07-2021 Instructions* Patient Instructions* Geovanna Degroot RN [...] complications are extremely rare. documented in this [facility]06-16-2021 History and physical note* Maik [...] trapezius, and lumbar paraspinal [facility] History of Present illness Narrative* Madina Summers RN - 02/24/2021 11:15 AM EDT PHYSICIAN - SCRUB - Kitty Martinez RN BROTH SETTER - [facility] Site cleansed with chloroprep. Procedure: cervical paraspinal [...] Denies dysuria or frequency documented in this [facility]06-02-2021 History of Present illness Narrative* [...] Social Gatherings with Friends and Family: Attends Denominational Services: Active Member of Clubs or Organizations: [...] tried OTC tylenol, celebrex with somemild relief. Timber has helped in the past, but would [...] within the last year. [facility] Instructions* Patient Instructions* Geovanna Degroot [...] read the attached handout from the [place] [employer] with guidelines and recommendations for [...] complications are extremely rare. [facility]* Diagnosis Myofascial pain- Primary Mylagia and myositis, unspecified Arthropathy of cervical facet joint Cervical spondylosis without myelopathy Spondylosis of lumbar region without myelopathy or radiculopathy Lumbosacral spondylosis without myelopathy Chronic pain syndrome Compliance with medication regimen [facility] Diagnosis Spondylosis of lumbar region without myelopathy or radiculopathy Lumbosacral spondylosis without myelopathy [facility] Diagnosis Myofascial pain- Primary Mylagia and myositis, unspecified [facility] Diagnosis Lumbar spondylosis- Primary Lumbosacral spondylosis without myelopathy Lumbar radiculopathy Thoracic or lumbosacral neuritis or radiculitis, unspecified Spinal stenosis of cervical region Spinal stenosis in cervical region Chronic pain syndrome Myofascial pain Mylagia and myositis, unspecified [facility] Lumbar spondylosis- Primary Lumbosacral spondylosis without myelopathy Chronic pain syndrome Myofascial pain Mylagia and myositis, unspecified [facility] N[facility]ative - Reported* Type Description Date Medical History Elevated cholesterol with elevat ed triglycerides Medical History Low serum testosterone level Medical History Lumbar pain Medical History Hypertension Medical History Diverticulosis Surgical History R shoulder arthroscopy Surgical History FB R wrist Surgical History Umbilical hernia repair 07/12/20 23 Surgical History Colonoscopy 06/25/2023 Hospitalization History SEE SURGICAL HX [facility] Other Reason for Referral Status Reason Specialty Diagnoses / Procedures Referred By Contact Referred To Contact Auth Not Needed Diagnoses Myofascial pain Chronic pain syndrome Maik Barbosa MD [address] [place] [id number] Scheduling Instructions Please PA and schedule: neck and back TPI (pt will need a [address] Barbosa) Reason *FU 08/08 chronic lumbar pain, would benefit from less NSAID use. Diagnosis 1 Low back pain, unspe cified (M54.50) Referral Organization [facility] xochitl Referring Provider First Name Kell Referring Provider Last Name Tawnya Referring Provider Specialty Family [facility] Referred Organization [facility] Referred Address [address] [place], [place],[address] Referred Provider Specialty Pain Medicin e Referral Priority Routine General Notes Es Cooper 05:14:13 PM >received today, attachments made, notes locked, referral faxed Clinical Notes f: [id number] Summary Purpose Family History No Family History Records FoundNo Family History Records FoundNo Family History Records FoundNo Family History Records Found Advance Directives No Advanced Directives Records FoundNo Advanced Directives Records FoundNo Advanced Directives Records FoundNo Advanced Directives Records Found Additional Source Comments Reason for Visit (unrecogniz ed section and content) Reason Comments Pain Reason Comments Neck Pain Status Reason Specialty Diagnoses / Procedures Referre d By Contact Referred To Contact Closed Diagnoses Myofascial pain Chronic pain syndrome Maik Barbosa MD [address] [place] [address] Reason Comments Pain Specialty Diagnoses / Procedures Referred By Contac t Referred To Contact Diagnoses Lumbar facet arthropathy Maik Barbosa MD [address] [place] [address] Referral ID Status Reason Start Date Expiration Date Visits Re quested Visits Authorized [id number] Closed 04/14/2021 05/09/2022 1 1 (unrecognized sect ion and content) No Status Records FoundNo Status Records FoundNo Status Records FoundNo Status Records Found INFORMATION SOURCE (unrecogn ized section and content) DATE CREATED AUTHOR 05/10/2021 [facility] DATE CREATED AUTHOR AUTHOR'S ORGANIZ ATION 01/13/2023 [facility] DATE CREATED AUTHOR AUTHOR'S ORGANIZ ATION 07/27/2023 [facility] DATE CREATED AUTHOR AUTHOR'S ORGANIZ ATION 11/17/2023 [facility] Care Teams (unrecognized sec tion and content) Brooch Maker Novelty Relationship Specialty Start Date End Date Kell Bowling MD [address] [place] [address] PCP - General Family Medicine 02/10/21 FOR [...] BE BASED ON THE PRIMARY CLINICAL RECORDS. [employer] provides no warranty or guarantee of the accuracy or completeness of information in this document.
== END 2023-11-23 11:41 | disposition home or self-care (01) ==
LOC: PM 11:40
PROVIDERS: PCP Family Medicine; Visit Provider Nurse Practitioner
DX: M46.1 Sacroiliitis, not elsewhere classified (principal); M79.18 Myalgia, other site; M47.816 Spondylosis without myelopathy or radiculopathy, lumbar region
CPT/HCPCS: G0463

== ENCOUNTER 2023-12-19 12:01 | Outpatient (OUT) | payer BC, SELFPAY ==
--- OUTSIDE RECORDS SUMMARY | 2023-12-19 12:11 | XMS_ITS | CCD ---
Author Organization [facility] Care Team Providers Care Tow Motor Driver Name Role Phone Kell Bowling MD Primary Care Provider TAWNYA, DR KELL Romero Primary Care Unavailable KASSIE Isidro, DR LIZBETH Donald Attending Unavaila marilin Isidro, DR LIZBETH Donald Consulting Unavaila marilin Isidro, DR LIZBETH Donald Admitting Unavaila ble BOWLING, DR KELL Romero Primary Care Unavailable FISHER [...] ., DR CONNIE Romero Admitting Unavaila ble GRRONDA ., DR CONNIE Romero Attending Unavaila ble TAWNYA, DR KELL Romero Primary Care Unavailable GRILLIAme ., DR CONNIE Romero Admitting Unavaila ble GRRONDA ., DR CONNIE Romero Attending Unavaila ble BOWLING, DR KELL Romero Primary Care Unavailable GRILLIS ., DR CONNIE Romero Attending Unavaila ble GRILLIAme ., DR CONNIE Romero Consulting Unavaila ble [...] Unavailable BOWLING, DR KELL Romero Consulting Unavailable BOWLING, DR KELL Romero Primary Care Unavailable Chata Page Attending Unavailable Chata Page Attending Unavailable Chata Page Attending Unavailable Kell Bowling Unavailable Gurinder FERMIN, Luis Stallings Attending Unavailable Allergies Allergy Classification Reported Allergen(s) Allergy Type Date of Onset Reaction(s) Facility (2 sources) patient allergy list reviewed by nurse or physicia Propensity to adverse reactions 9 Comment:Done [employer] Other (2 sources) Allergies Reconciled Propensity to adverse reactions Unknown [employer] Other Medications Current Medications Medication Drug Class(es) Dates Sig (Normalized) Sig (Original) Amoxicillin (1 source) Penicillin-class Antibacterial Amoxicillin Active Atenolol / Chlorthalidone (7 sources) Thiazide-like Diuretic, beta-Adrenergic Daron Start: 08-22-2022 take 1 tablet by mouth once daily Atenolol-Chlortha lidone 50-25mg atenoloL-chlortha lidone 50-25mg, 1 (one) Tablet daily # 90, 08/22/2022, Ref. x1. Active oral daily for 90 *Pick strength-form from [employer] for eRX* Aug, Active Start: 02-05-2021 atenolol-chlor thalidone 50-25 MG tablet cyclobenzaprine hydrochloride 10 mg oral tablet (7 sources) Muscle Relaxant Start: 05-31-2022 take 1 tablet by mouth three times daily as needed cyclobenzaprine 10mg cyclobenzaprine 10mg, 1 (one) Tablet three times daily, as needed # 30, 05/31/2022, No Refill. Active oral three times daily, as needed for 0 *Reorder from [employer] for eRx and Interaction Alerts* May, Active [...] Refill. Active transdermal for 0 *Reorder from [employer] for eRx and Interaction Alerts* May, Active [...] FERMIN, Chata Inman Where: [facility] Lab Reportson 07-26-2023 Lab Reports [id number]#1.00TIFF Normal [facility] Lab Reports [id number]#1.00TI FF Normal [facility] Medication Consenton 023 Medication Consent [id number]#1.00TI FF Normal [facility] Patient Educationon 07-26-20 23 Patient Education Urology [...] Follow these instructions at home: ? Take [id number] and prescription medicines only as told by [...] from the medicine (more content not included)... [facility] Reminderson 07-26-2023 Reminders - From: Meme Haley To: EU - Recalls Lue; Sent: 07/26/2023 11:33:52 EST Show up: 05/26/2024 12:33:00 EDT Subject: Labs Due Date/Time: 07/26/2024 11:33:00 EST Pt will need T Level, HCT and PSA prior to appt. PSA is done by PCP. [facility] Screenson 07-26-2023 Screens [id number]#1.00TI FF [facility] Screens [id number]#1.00TI [facility] Urology Office/Clinic Noteon 07-26-2023 Urology Office/Clinic Note Chief Complaint 6m Testosterone Level HPI Staff 6m Testosterone Level DX: Hypogonadism, Impotence & BPH *Cialis 10mg PRN (occasionally uses 20mg) & Androgel 2 pumps qd PSA 07/05/23- 0.78 CBC/CMP 07/05/23 *BUN 21.0 & Crea 1.48 eGFR 50 *Hgb 12.3 & Hct 38.9 A1C 07/05/23- 5.8 Testosterone 07/20/23- 366 (033-615) Pt has no concerns at this time. [...] 324 07/19/21 - 754 07/20/23 - 366 (600-516) Hgb 12.3 & Hct 38.9 Reviewed labs [...] mRNA BNT-162b2 vax (more content not included)... [facility] Comment on above: Result Comment: Elec tronically Signed By: Chata Page MD\.br\Date and Time Signed: 07/26/23 08:57 EST\.br\Electronically Co-Signed By: Meme Haley\.br\Date and Time Co-Signed: 07/26/23 08:37 EST Lab Reportson 07-24-2023 Lab Reports [id number]#1.00TIF F [facility] Ambulatory Visit Summaryon 0 01-11-2023 Ambulatory Visit Summary MANUEL ROSAS :1970 Visit Date:01/11/2023 Ambulatory Visit Instructions Your Diagnosis Impotence Male hypogonadism BPH (benign prostatic hyperplasia) Tests Performed Urnls Dip Stick Auto w/o Microscopy POC 95291 Your Care Team Attending Physician - Chata [...] Chata Page MD Where: [facility] Patient Educationon 01-12-20 Patient Education Urology Testicular [...] provider. Document Revised: 08/03/2020 Document Reviewed: 08/03/2020 [employer] III Patient Education ? 2022 [employer] Normal [facility] Screenson 01-11-2023 Screens [id number]#1.00CD :127 Normal [facility] Screens [id number]#1.00CD :127 Normal [facility] Urology Office/Clinic Noteon 01-11-2023 Urology Office/Clinic Note Chief Complaint 6 month follow up HPI Staff 6 month follow up w/testosterone level 487 done 01/06/23, previous testosterone level 410 done 06/20/22. Previous DX: BPH, impotence, male hypogonadism. Pt is currently taking Cialis 10mg PRN, and AndroGel 2 pumps daily-refill on both medications sent to [facility] in [place]. IPSS is , MAKI 22. Dysuria: denies [...] Androgel 2 pumps daily. Refill sent to [facility]. Good range and sx improvement, prior CBC [...] mos t level Patient Education Testicular Self-Exam IEricka, personally scribed for Dr. Page on 01/11/2023 [...] Urine Dips (more content not included)... Normal [facility] Comment on above: Result Comment: Elec tronically Signed By: Chata Paeg MD\.br\Date and Time Signed: 01/11/23 19:10 EDT\.br\Electronically Co-Signed By: Ericka Mcconnell\.br\Date and Time Co-Signed: 01/11/23 10:32 EDT Lab Report[facility] 01-10-2023 Lab Reports [id number]#1.00CD: 127 Normal [facility] TESTOSTERONE, TOTALon 2022 Testosterone [Mass/Vol] 487 ng/dL Normal 264-916 [facility] Comment on above: Result Comment: Adul t male reference interval is based on a population of healthy nonobese males (BMI <30) between 19 and 39 years old. Joni et.al. JCEM 2017,102;9748-3773. PMID: [id number]. Performed By: #### T ESTTOT #### [facility] [address] [place] [address] Dr. Mychal Oropeza Pre-Certification Formon Pre-Certification Form [id number]#1.00CD: 127 Normal [facility] Pre-Certification Formon Pre-Certification Form [id number]#1.00CD: 127 Normal [facility] Pre-Certification Formon Pre-Certification Form [id number]#1.00CD: 127 Normal [facility] US SINGLE QUAD RT UPPERon US SINGLE [...] by: CHRISTOFER SCHAEFFER Date: 2022-08-25 07:07 Normal [facility] Historical Records Officeon 08-19-2022 Historical Records Office [id number]#1.00CD: 127 Normal [facility] Pre-Certification Formon Pre-Certification Form [id number]#1.00CD: 127 Normal [facility] Patient Letter FTMCon 2021 Patient Letter [facility] [place] (Inserted Image. Nga ble to display) August 18, 2022 [address]EL ROSAS [address] [place] [address] MANUEL ROSAS 1970 Dear Whomever it may [...] Dr. Chata Page MD [facility] [address] [place] [address]. [place] [address] Normal [facility] TESTOSTERONE, TOTALon 2021 Testosterone [Mass/Vol] 410 ng/dL Normal 264-916 [facility] Comment on above: Result Comment: Adul t male reference interval is based on a population of healthy nonobese males (BMI <30) between 19 and 39 years old. Joni, et.al. JCEM 2017,102;9073-5581. PMID: [id number]. Performed By: #### T ESTTOT #### [facility] [address] [address] [address] Mychal Oropeza CBC AUTO DIFFon 05-27-2022 BASO # 0.1 103/ul Normal 0.0-0.1 [facility] Comment on above: Performed By: #### C BC #### [facility] [address] [address] [address] Mychal Oropeza Basophils/100 WBC (Bld) 0.9 % Normal 0.2-2.0 [facility] Comment on above: Performed By: #### C BC #### [facility] [address] [address] [address] Mychal Oropeza EO # 0.7 103/ul Normal 0.0-0.7 [facility] Comment on above: Performed By: #### C BC #### [facility] [address] [address] [address] Mychal Oropeza Eosinophils/100 WBC (Bld) 6.7 % Normal 0.9-7.0 [facility] Comment on above: Performed By: #### C BC #### [facility] [address] [place] [address] Dr. Mychal Oropeza Erythrocyte distribution width (RBC) [Ratio] 12.8 % Normal 11.0-15.0 [facility] Comment on above: Performed By: #### C BC #### [facility] [address] [place] [address] Dr. Mychal Oropeza Hematocrit (Bld) [Volume fraction] 46.9 % Normal 42.0-54.0 [facility] Comment on above: Performed By: #### C BC #### [facility] [address] [place] [address] Dr. Mychal Oropeza Hemoglobin (Bld) [Mass/Vol] 16.2 g/dL Normal 14.0-18.0 [facility] Comment on above: Performed By: #### C BC #### [facility] [address] [address] [address] Mychal Oropeza IG # 0.04 10e3/ul Critically high 0.00-0.03 [facility] Comment on above: Performed By: #### C BC #### [facility] [address] [address] [address] Mychal Oropeza IG % 0.4 % Normal 0.0-0.5 [facility] Comment on above: Performed By: #### C BC #### [facility] [address] [address] [address] Mychal Oropeza LYMPH # 4.1 103/ul Critically high 1.2-3.8 [facility] Comment on above: Performed By: #### C BC #### [facility] [address] [place] [address] Dr. Mychal Oropeza Lymphocytes/100 WBC (Bld) 37.7 % Normal 20.5-60.0 [facility] Comment on above: Performed By: #### C BC #### [facility] [address] [place] [address] Dr. Mychal Oropeza MANUAL DIFF REQ NO Normal [facility] Comment on above: Performed By: #### C BC #### [facility] [address] [place] [address] Dr. Mychla Oropeza MCH (RBC) [Entitic mass] 30.7 pg Normal 25.9-34.0 [facility] Comment on above: Performed By: #### C BC #### [facility] [address] [place] [address] Dr. Mychal Oropeza MCHC (RBC) [Mass/Vol] 34.5 g/dL Normal 29.9-35.2 [facility] Comment on above: Performed By: #### C BC #### [facility] [address] [place] [address] Dr. Mychal Oropeza MCV (RBC) [Entitic vol] 88.8 fL Normal 80.0-94.0 [facility] Comment on above: Performed By: #### C BC #### [facility] [address] [place] [address] Dr. Mychal Oropeza MONO # 0.9 103/ul Critically high 0.3-0.8 [facility] Comment on above: Performed By: #### C BC #### [facility] [address] [place] [address] Dr. Mychal Oropeza Monocytes/100 WBC (Bld) 8.1 % Normal 1.7-12.0 [facility] Comment on above: Performed By: #### C BC #### [facility] [address] [address] [address] Mychal Oropeza NEUT # 5.1 103/ul Normal 1.4-6.5 [facility] Comment on above: Performed By: #### C BC #### [facility] [address] [address] [address] Mychal Oropeza Neutrophils/100 WBC (Bld) 46.2 % Normal 43.0-75.0 [facility] Comment on above: Performed By: #### C BC #### [facility] [address] [address] [address] Mychal Oropeza Platelet mean volume (Bld) [Entitic vol] 9.7 fL Normal 9.5-13.5 [facility] Comment on above: Performed By: #### C BC #### [facility] [address] [place] [address] Dr. Mychal Oropeza PLT 308 103/ul Normal 150-450 [facility] Comment on above: Performed By: #### C BC #### [facility] [address] [place] [address] Dr. Mychal Oropeza RBC 5.28 106/ul Normal 4.70-6.10 [facility] Comment on above: Performed By: #### C BC #### [facility] [address] [place] [address] Dr. Mychal Oropeza WBC 10.9 103/ul Normal 4.0-11.0 [facility] Comment on above: Performed By: #### C BC #### [facility] [address] [place] [address] Dr. Mychal Oropeza GLYCOHEMOGLOBIN A1Con 2021 ADA RECOMMENDATION SEE BELOW Normal [facility] Comment on above: Result Comment: ADA RECOMMENDED LIMIT 4.0 - 6.0 ADA THERAPEUTIC TARGET < 7.0 ACTION SUGGESTED > 7.0 Performed By: #### A 1C #### [facility] [address] [place] [address] Dr. Mychal Oropeza Glucose [Mass/Vol] 108 mg/dL Normal [facility] Comment on above: Performed By: #### A 1C #### [facility] [address] [address] [address] Mychal Oropeza HbA1c (Bld) [Mass fraction] 5.4 % Normal 4.5-6.2 [facility] Comment on above: Performed By: #### A 1C #### [facility] [address] [address] [address] Mychal Oropeza LIPID PROFILEon 05-27-2022 CHOL-HDL RATIO NORM SEE BELOW Normal [facility] Comment on above: Result Comment: 3.3 - 4.4 LOW RISK 4.4 - 7.1 AVERAGE RISK 7.1 - 11.0 MODERATE RISK >11.0 HIGH RISK Performed By: #### T SH, LIPID, CMP #### [facility] [address] [address] [address] Mychal Oropeza Cholesterol [Mass/Vol] 207 mg/dL Critically high <=200 [facility] Comment on above: Performed By: #### T SH, LIPID, CMP #### [facility] [address] [address] [address] Mychal Oropeza Cholesterol in HDL [Mass/Vol] 47 mg/dL Normal 40-60 [facility] Comment on above: Performed By: #### T SH, LIPID, CMP #### [facility] [address] [place] [address] Dr. Mychal Oropeza Cholesterol in LDL [Mass/Vol] 122.4 mg/dL Normal [facility] Comment on above: Performed By: #### T SH, LIPID, CMP #### [facility] [address] [address] [address] Mychal Oropeza Cholesterol.total/Ch olesterol in HDL [Mass ratio] 4.4 {ratio} Normal [facility] Comment on above: Performed By: #### T SH, LIPID, CMP #### [facility] [address] [place] [address] Dr. Mychal Oropeza HDL NORMAL > or = 60 mg/dl - LO W CARDIOVASCULAR RISK <40 mg/dl - HIGH CARDIOVASCULAR RISK Normal [facility] Comment on above: Performed By: #### T SH, LIPID, CMP #### [facility] [address] [address] [address] Mychal Oropeza LDL CALC NORMAL SEE BELOW Normal [facility] Comment on above: Result Comment: <100 mg/dl OPTIMAL 100 - 129 mg/dl NEAR OR ABOVE OPTIMAL 130 - 159 mg/dl BORDERLINE HIGH 160 - 189 mg/dl HIGH >190 mg/dl VERY HIGH Performed By: #### T KADIE, LIPID, CMP #### [facility] [address] [address] [address] Mychal Oropeza Triglyceride [Mass/Vol] 188 mg/dL Critically high <=150 [facility] Comment on above: Performed By: #### T KADIE, LIPID, CMP #### [facility] [address] [address] [address] Mychal Oropeza VLDL CALC 37.6 mg/dL Normal [facility] Comment on above: Performed By: #### T KADIE, LIPID, CMP #### [facility] [address] [place] [address] Dr. Mychal Oropeza PROF 14(COMP METB)on 022 Albumin [Mass/Vol] 3.9 g/dL Normal 3.4-5.0 [facility] Comment on above: Performed By: #### T KADIE, LIPID, CMP #### [facility] [address] [place] [address] Dr. Mychal Oropeza Albumin/Globulin [Mass ratio] 1.1 {ratio} Normal [facility] Comment on above: Performed By: #### T KADIE, LIPID, CMP #### [facility] [address] [place] [address] Dr. Mychal Oropeza ALP [Catalytic activity/Vol] 77 U/L Normal 46-116 [facility] Comment on above: Performed By: #### T SH, LIPID, CMP #### [facility] [address] [place] [address] Dr. Mychal Oropeza ALT [Catalytic activity/Vol] 56 U/L Normal 16-63 [facility] Comment on above: Performed By: #### T KADIE, LIPID, CMP #### [facility] [address] [place] [address] Dr. Mychal Oropeza Anion gap [Moles/Vol] 8.6 mmol/L Normal [facility] Comment on above: Performed By: #### T KADIE LIPID, CMP #### [facility] [address] [place] [address] Dr. Mychal Oropeza AST [Catalytic activity/Vol] 30 U/L Normal 15-37 [facility] Comment on above: Performed By: #### T KADIE, LIPID, CMP #### [facility] [address] [place] [address] Dr. Mychal Oropeza Bilirubin [Mass/Vol] 0.6 mg/dL Normal 0.2-1.0 [facility] Comment on above: Performed By: #### T KADIE LIPID, CMP #### [facility] [address] [place] [address] Dr. Mychal Oropeza Calcium [Mass/Vol] 9.2 mg/dL Normal 8.5-10.1 [facility] Comment on above: Performed By: #### T KADIE LIPID, CMP #### [facility] [address] [place] [address] Dr. Mychal Oropeza Chloride [Moles/Vol] 100 mmol/L Normal 98-107 [facility] Comment on above: Performed By: #### T KADIE LIPID, CMP #### [facility] [address] [place] [address] Dr. Mychal Oropeza CO2 [Moles/Vol] 30.0 mmol/L Normal 21.0-32.0 [facility] Comment on above: Performed By: #### T KADIE, LIPID, CMP #### [facility] [address] [place] [address] Dr. Mychal Oropeza Creatinine [Mass/Vol] 1.37 mg/dL Critically high 0.70-1.30 [facility] Comment on above: Performed By: #### T KADIE, LIPID, CMP #### [facility] [address] [place] [address] Dr. Mychal Oropeza EGFR-AF FILIPINO >60 Normal >=60 [facility] Comment on above: Performed By: #### T SH, LIPID, CMP #### [facility] [address] [address] [address] Mychal Oropeza EGFR-NON AF FILIPINO 55 mL/min/1.73m2 Critically low >=60 [facility] Comment on above: Performed By: #### T SH, LIPID, CMP #### [facility] [address] [address] [address] Mychal Oropeza Globulin (S) [Mass/Vol] 3.7 g/dL Normal [facility] Comment on above: Performed By: #### T SH, LIPID, CMP #### [facility] [address] [place] [address] Dr. Mychal Oropeza Glucose [Mass/Vol] 111 mg/dL Critically high 74-106 [facility] Comment on above: Performed By: #### T KADIE, LIPID, CMP #### [facility] [address] [place] [address] Dr. Mychal Oropeza Potassium [Moles/Vol] 3.6 mmol/L Normal 3.5-5.1 [facility] Comment on above: Performed By: #### T KADIE, LIPID, CMP #### [facility] [address] [address] [address] Mychal Oropeza Protein [Mass/Vol] 7.6 g/dL Normal 6.4-8.2 [facility] Comment on above: Performed By: #### T KADIE, LIPID, CMP #### [facility] [address] [place] [address] Dr. Mychal Oropeza Sodium [Moles/Vol] 135 mmol/L Critically low 136-145 Th [facility] Comment on above: Performed By: #### T SH, LIPID, CMP #### [facility] [address] [address] [address] Mychal Oropeza Urea nitrogen [Mass/Vol] 14.0 mg/dL Normal 7.0-18.0 [facility] Comment on above: Performed By: #### T SH, LIPID, CMP #### [facility] [address] [place] [address] Dr. Mychal Oropeza Urea nitrogen/Creatinine [Mass ratio] 10.2 mg/mg Normal [facility] Comment on above: Performed By: #### T SH, LIPID, CMP #### [facility] [address] [place], [place] [address] Dr. Mychal Oropeza TSHon 05-27-2022 TSH 2.907 uIU/mL Normal 0.358-3.740 [facility] Comment on above: Performed By: #### T SH, LIPID, CMP #### [facility] [address] [place], [place] [address] Dr. Mycahl Oropeza TESTOSTERONE, TOTALon 2021 Testosterone [Mass/Vol] 324 ng/dL Normal 264-916 [facility] Comment on above: Result Comment: Adul t male reference interval is based on a population of healthy nonobese males (BMI <30) between 19 and 39 years old. bouchra Quinones.al. JCEM 2017,102;9211-5312. PMID: [id number]. Performed By: #### T ESTTOT #### [facility] [id number] Mychal Oropeza XR SPINE CERVICAL WITH [...] No instability is noted. Normal [facility] XR SPINE LUMBAR W BENDINGon 02-10-2021 [...] of motion without instability. Normal [facility] XR SPINE LUMBAR W BENDINGOrd ered By: Maik Barbosa on 02-10-2021 IMPRESSION: Lumbar s pine visually is fairly well preserved. There is no evidence of fracture, listhesis, significant disc space narrowing or major degenerative changes. There is a very good range of motion without instability. [employer] EXAM: XR SPINE LUMBA R W BENDING [...] motion. There is no listhesis or instability. [facility], Interfaces - 02/10/2021 4:52 PM EDT [...] good range of motion without instability. [facility] Vital Signs Date Time Vital Sign Value Performing Clinician Facility 08-31-2023 15:30-0500 Body height 170.18 cm Kell Bowling Other [employer] Other 08-31-2023 15:30-0500 Body mass index (BMI) [Ratio] 33.04 kg/m2 Kell Bowling Other [employer] Other 08-31-2023 15:30-0500 Body weight 95.71 kg Kell Bowling Other [employer] Other 08-31-2023 15:30-0500 Diastolic blood pressure 77 mm[Hg] Kell Bowling Other [employer] Other 08-31-2023 15:30-0500 Systolic blood pressure 119 mm[Hg] Kell Bowling Other [employer] Other 08-01-2023 08:30-0500 Body height 170.18 cm Kell Bowling Other [employer] Other 08-01-2023 08:30-0500 Body mass index (BMI) [Ratio] 35.14 kg/m2 Kell Bowling Other [employer] Other 08-01-2023 08:30-0500 Body weight 101.79 kg Kell Bowling Other [employer] Other 08-01-2023 08:30-0500 Diastolic blood pressure 82 mm[Hg] Kell Bowling Other [employer] Other 08-01-2023 08:30-0500 Systolic blood pressure 118 mm[Hg] Kell Bowling Other [employer] Other 04-16-2021 12:05-0400 Diastolic blood pressure 97 mm[Hg] Maik Barbosa MD Work Phone: [facility] 04-16-2021 12:05-0400 Heart rate 54 /min Maik Barbosa MD Work Phone: [facility] 04-16-2021 12:05-0400 Respiratory rate 16 /min Maik Barbosa MD Work Phone: [facility] 04-16-2021 12:05-0400 SaO2% (BldA) [Mass fraction] 95 % Maik Barbosa MD Work Phone: [facility] 04-16-2021 12:05-0400 Systolic blood pressure 142 mm[Hg] Maik Barbosa MD Work Phone: [facility] 03-17-2021 08:04-0400 Body height 170.2 cm Maik Barbosa MD Work Phone: [facility] 03-17-2021 08:04-0400 Body mass index (BMI) [Ratio] 34.61 kg/m2 Maik Barbosa MD Work Phone: [facility] 03-17-2021 08:04-0400 Body weight 100.25 kg Maik Barbosa MD Work Phone: [facility] 03-17-2021 08:04-0400 Diastolic blood pressure 93 mm[Hg] Maik Barbosa MD Work Phone: [facility] 03-17-2021 08:04-0400 Heart rate 74 /min Maik Barbosa MD Work Phone: [facility] 03-17-2021 08:04-0400 Respiratory rate 20 /min Maik Barbosa MD Work Phone: [facility] 03-17-2021 08:04-0400 SaO2% (BldA) [Mass fraction] 96 % Maik Barbosa MD Work Phone: [facility] 03-17-2021 08:04-0400 Systolic blood pressure 132 mm[Hg] Maik Barbosa MD Work Phone: [facility] 02-24-2021 12:02-0400 Diastolic blood pressure 100 mm[Hg] Maik Barbosa MD Work Phone: [facility] 02-24-2021 12:02-0400 Heart rate 55 /min Maik Barbosa MD Work Phone: [facility] 02-24-2021 12:02-0400 Respiratory rate 18 /min Maik Barbosa MD Work Phone: [facility] 02-24-2021 12:02-0400 SaO2% (BldA) [Mass fraction] 95 % Maik Barbosa MD Work Phone: [facility] 02-24-2021 12:02-0400 Systolic blood pressure 141 mm[Hg] Maik Barbosa MD Work Phone: [facility] 02-10-2021 11:46-0400 Body height 170.2 cm Maik Barbosa MD Work Phone: [facility] 02-10-2021 11:46-0400 Body mass index (BMI) [Ratio] 34.61 kg/m2 Maik Barbosa MD Work Phone: [facility] 02-10-2021 11:46-0400 Body weight 100.25 kg Maik Barbosa MD Work Phone: [facility] 02-10-2021 11:46-0400 Diastolic blood pressure 81 mm[Hg] Maik Barbosa MD Work Phone: [facility] 02-10-2021 11:46-0400 Heart rate 64 /min Maik Barbosa MD Work Phone: [facility] 02-10-2021 11:46-0400 Respiratory rate 18 /min Maik Barbosa MD Work Phone: [facility] 02-10-2021 11:46-0400 SaO2% (BldA) [Mass fraction] 99 % Maik Barbosa MD Work Phone: [facility] 02-10-2021 11:46-0400 Systolic blood pressure 121 mm[Hg] Maik Barbosa MD Work Phone: [facility] Encounters Encounter Date Encounter Type Care Provider Facility Start: 07-31-2024 ambulatory Chata Page Facility:[facility] Start: 11-13-2023 End: 11-14-2023 ambulatory Luis Fairchild MD Facility:[facility] Start: 08-31-2023 End: 08-31-2023 ambulatory Kell Bowling Other [employer] Other Start: 08-31-2023 Office outpatient vi sit 15 minutes Kell Bowling [facility] Start: 08-01-2023 End: 08-01-2023 ambulatory Kell Bowling Other [employer] Other Start: 08-01-2023 Encounter for genera l adult medical examination without abnormal findings Kell Bowling [facility] Start: 08-01-2023 Periodic preventive med est patient 40-64yrs Kell Bowling [facility] Start: 07-26-2023 End: 07-27-2023 ambulatory [...] examination without abnormal findings DR KELL BOWLING [facility] Start: 05-27-2022 End: 05-28-[address] KELL BOWLING Facility:[facility] Start: 05-27-2022 End: 05-28-2022 Encounter for general adult medical examination without abnormal findings DR KELL BOWLING Facility:[facility] Start: 01-19-2022 End: 01-20-[address] KELL BOWLING Facility:[facility] Start: 04-16-2021 End: 04-16-2021 Patient encounter procedure Maik Barbosa MD Work Phone: [facility] Comment on above: Lumbar spondylosis ( Primary Dx); Chronic pain syndrome; Myofascial pain Start: 03-17-2021 End: 03-17-2021 Office outpatient visit 15 minutes Maik Barbosa MD Work Phone: [facility] Comment on above: Lumbar spondylosis ( Primary Dx); Lumbar radiculopathy; Spinal stenosis of cervical region; Chronic pain syndrome; Myofascial pain Start: 02-24-2021 End: 02-24-2021 Clinical Support Encounter Maik Barbosa MD Work Phone: [facility] Comment on above: Myofascial pain (Ara reji Dx) Start: 02-10-2021 End: 02-10-2021 Subsequent hospital visit by physician Maik Barbosa MD Work Phone: [facility] Diagnostic [facility]iology Comment on above: Arrived Start: 02-10-2021 End: 02-10-2021 Office outpatient new 45 minutes Maik Barbosa MD Work Phone: [facility] Comment on above: Myofascial pain (Ara reji Dx); Arthropathy of cervical facet joint; Spondylosis of lumbar region without myelopathy or radiculopathy; Chronic pain syndrome; Compliance with medication regimen Procedures Date Procedure Procedure Detail Performing Clinician Start: 05-27-[address] KELL BOWLING Comment on above: Performed By: #### [facility] #### [facility] [address] [place] [address] Dr. Mychal Oropeza Start: 02-10-2021 Radex spine lumbscrl compl w/bending views min 6 Maik Barbosa MD Work Phone: Plan of Treatment Date Care Activity Detail Author Start: 05-21-2021 End: 05-21-2021 Patient encounter procedure 05/21/2021 Office Visit Anesthesiology Pain Mgt Maik Barbosa MD [address] [place] [address] [facility] Start: 05-12-2021 Influenza vaccination A [facility] Start: 05-07-2021 End: 05-07-2021 Patient encounter procedure 05/07/2021 Office Visit Anesthesiology Pain Mgt Maik Barbosa MD [address] [place] [address] [facility] Start: 05-03-2021 End: 05-03-2021 Patient encounter procedure 05/03/2021 Office Visit Anesthesiology Pain MgMaik Kinney MD [address] [place] [address] [phone] [facility] Start: 04-27-2021 End: 04-27-2021 Patient encounter procedure 04/27/2021 Office Visit Anesthesiology Pain MgMaik Kinney MD [address] [place] [address] [facility] Start: 03-17-2021 End: 03-17-2021 Patient encounter procedure 03/17/2021 Office Visit Anesthesiology Pain MgMaik Kinney MD [address] [place] [address] [phone] [facility] Start: 02-24-2021 End: 02-24-2021 Patient encounter procedure 02/24/2021 Office Visit Anesthesiology Pain Mgt Maik Barbosa MD [address] [facility] [place] [address] [phone] [facility] Start: 02-10-2021 End: 02-11-2021 DRUG SCREEN MED COMPLIANCE I DRUG SCREEN MED COMPLIANCE I Lab Routine Compliance with medication regimen Expected: 02/10/2021, Expires: 02/11/2021 [facility] Comment on above: Expected: 02/10/2021 , Expires: 02/11/2021 Start: 02-08-2020 Prostate specific antigen measurement PROSTATE CANCER SCREENING DISCUSSION [facility] Start: 02-08-2020 Zoster vaccine hzv l wilmar for subcutaneous use ZOSTER (SHINGLES) VACCINE (1 of 2) [facility] Start: 2015 Colonoscopy COLORECTAL CAN CER SCREENING DISCUSSION [facility] Start: 2010 Fasting lipid profile LIPID SCREENIN G [facility] Start: 1989 Third diphtheria, tetanus and acellular pertussis (DTaP) vaccination TDAP (ADULT) [facility] Start: 02-08-1988 Tetanus vaccination TETANUS [facility] Start: 1985 HIV screening HIV SCREENING DISCUSSI ON [facility] Start: 1982 COVID-19 VACCINE (1) COVID-19 VACCIN E (1) [facility] Start: 1970 Hepatitis C antibody , confirmatory test HEPATITIS C VIRUS SCREENING [facility] Payers Date Payer Category Payer Unknown 2022 Unknown [id number] 2019 Unknown [id number] 2018 Unknown [id number]. [id number] 1970 Unknown [id number] 2.16.84 [id number] 1970 Unknown [id number] 2.16.84 [id number] 1970 Unknown [id number] 2.16.84 [id number] 1970 Unknown [id number] 2.16.84 [id number] 1970 Unknown [id number] 2.16.84 [id number] 1970 Unknown [id number] 2.16.84 [id number] 1970 Unknown [id number] 2.16.84 [id number] 1970 Unknown [id number] 2.16.84 [id number] 1970 Unknown [id number] 2.16.8 [id number] 1970 Unknown [id number] 2.16.8 [id number] 1970 Unknown [id number] 2.16.8 [id number] 1970 Unknown [id number] 2.16. [id number] 1959 Self-pay [id number] Unknown [id number] 2.16.84 [id number] Unknown [id number] Social History Date Type Detail Facility Start: 02-10-2021 End: 03-17-2021 Tobacco smoking status NHIS Never smoker [facility] Start: 02-10-2021 End: 03-17-2021 Tobacco use and exposure Never used [facility] Start: 02-10-2021 End: 03-17-2021 Alcohol intake Current drinker of alcohol (finding) [facility] Start: 02-10-2021 End: 03-17-2021 Alcohol intake [facility] Start: 02-10-2021 Alcohol Comment 5 beers/week Deven Chawla [employer] [facility] [facility] Start: 1970 Sex Assigned At Not on file [facility] Sex Assigned At Sex Assigned At Bir th [employer] Other Clinical Notes 02-10-2021 to 08-31-2023 Note [...] index [BMI] 33.0-33.9, adult (ICD-10 - Z68.33) [facility] Other [id number] Evaluation note* Encounter Date Diagnosis Assessment Notes [...] (ICD-10 - M54.50) Pt requests referral to [place] [facility]. He hopes to lessen his use of NSAIDs to improve his renal function. Jul, Other chronic pain (ICD-10 - G89.29) Jul, JOSÉ (obstructive sleep apnea) (ICD-10 - G47.33) Form completed for [facility]. Jul, Class 2 obesity [...] to ER and Follow-up with me immediately. [employer] Other 08-06-2021 History and physical note* Maik [...] bilateral lumbar facet block documented in this [facility]21 History of Present illness Narrative* Humera Genao RN - 04/16/2021 11:30 AM EDT SCRUB - Shellie Alaniz RN RT - Ame Serrano RT CUSTOMER RESOURCE SPECIALIST - N/A DIRECTOR OF SUSTAINABILITY - Aurelio Genao RN Site cleansed with hibiclens. * Maik Barbosa MD - 04/16/2021 11:30 AM EDT Procedures PROCEDURE: Bilateral L4-5, and L5-S1 Facet Joint Block under Fluoroscopic Guidance ATTENDING PHYSICIAN: Maik Babrosa MD PREOPERATIVE DIAGNOSIS(ES): Lumbar Spondylosis POSTOPERATIVE DIAGNOSIS: [...] and earlier as needed. documented in this [facility]08-06-2021 Instructions* Patient Instructions* Geovanna Degroot RN - 04/16/2021 11:30 AM EDT [facility] WHAT TO EXPECT AFTER A PROCEDURE Follow up appointment: Call the office ([phone]) if you have any questions or develop [...] to call us at . Thank you, [facility] documented in this [facility]07-07-2021 History of Present illness Narrative* [...] tried OTC tylenol, celebrex with somemild relief. [place] has helped in the past, but would [...] Denies dysuria or frequency documented in this [facility]07-07-2021 Instructions* Patient Instructions* Geovanna [...] complications are extremely rare. documented in this [facility] History and physical note* [...] lumbar [facility]aspinal [facility] History of Present illness Narrative* Madina Summers RN - 02/24/2021 11:15 AM EDT PHYSICIAN - SCRUB - Kitty Martinez RN DIRECTOR OF SUSTAINABILITY - Madina Site cleansed with chloroprep. Procedure: [...] Denies dysuria or frequency documented in this [facility] History of Present illness [...] Social Gatherings with Friends and Family: Attends [employer] Services: Active Member of Clubs or Organizations: [...] tried OTC tylenol, celebrex with somemild relief. [place] has helped in the past, but would [...] within the last year. documented in this [facility] Instructions* Patient Instructions* Geovanna [...] read the attached handout from the [employer] [place] [employer] with guidelines and recommendations for [...] extremely rare. [facility]* Diagnosis Myofascial pain- Primary Mylagia and myositis, unspecified Arthropathy of cervical facet joint Cervical spondylosis without myelopathy Spondylosis of lumbar region without myelopathy or radiculopathy Lumbosacral spondylosis without myelopathy Chronic pain syndrome Compliance with medication regimen [facility] Diagnosis Spondylosis of lumbar region without myelopathy or radiculopathy Lumbosacral spondylosis without myelopathy documented [facility] this [facility] Diagnosis Myofascial pain- Primary Mylagia and myositis, unspecified [facility] this [facility] Diagnosis Lumbar spondylosis- Primary Lumbosacral spondylosis without myelopathy Lumbar radiculopathy Thoracic or lumbosacral neuritis or radiculitis, unspecified Spinal stenosis of cervical region Spinal stenosis in cervical region Chronic pain syndrome Myofascial pain Mylagia and myositis, unspecified [facility] Diagnosis Lumbar spondylosis- Primary Lumbosacral spondylosis without myelopathy Chronic pain syndrome Myofascial pain Mylagia and myositis, unspecified [facility] this [facility] Narrative - Reported* Type Description Date Medical History Elevated cholesterol with elevat ed triglycerides Medical History Low serum testosterone level Medical History Lumbar pain Medical History Hypertension Medical History Diverticulosis Surgical History R shoulder arthroscopy Surgical History FB R wrist Surgical History Umbilical hernia repair 07/12/20 23 Surgical History Colonoscopy 06/25/2023 Hospitalization History SEE SURGICAL HX [employer] Other Reason for Referral Status Reason Specialty Diagnoses / Procedures Referred By Contact Referred To Contact Auth Not Needed Diagnoses Myofascial pain Chronic pain syndrome Maik Barbosa MD [address] [place] [address] Scheduling Instructions Please PA and schedule: neck and back TPI (pt will need a [address] Barbosa) Reason *FU 08/08 chronic lumbar pain, would benefit from less NSAID use. Diagnosis 1 Low back pain, unspe cified (M54.50) Referral Organization [facility] [email or web address] Referring Provider First Name Kell Referring Provider Last Name Tawnya Referring Provider [facility] Referred Organization [facility] Referred Address [address] [place], [place],[address] Referred Provider Specialty Pain Medicin e Referral Priority Routine General Notes Es Cooper 05:14:13 PM >received today, attachments made, notes locked, referral faxed Clinical Notes f: [phone] Summary Purpose Family History No Family History [...] Chronic pain syndrome Maik Barbosa MD [address] [place] [address] Reason Comments Pain Specialty Diagnoses / Procedures Referred By Justino tidwell Referred To Contact Diagnoses Lumbar facet arthropathy Maik Barbosa MD [address] [place] [address] Referral ID Status Reason Start Date Expiration Date Visits Re quested Visits Authorized [id number] Closed 04/14/2021 05/09/2022 1 1 (unrecognized sect ion and content) No Status Records FoundNo Status Records FoundNo Status Records FoundNo Status Records Found INFORMATION SOURCE (unrecogn ized section and content) DATE CREATED AUTHOR 05/10/2021 [facility] DATE CREATED AUTHOR AUTHOR'S ORGANIZ ATION 01/13/2023 [facility] DATE CREATED AUTHOR AUTHOR'S ORGANIZ ATION 07/27/2023 [facility] DATE CREATED AUTHOR AUTHOR'S ORGANIZ ATION 11/17/2023 [facility] Care Teams (unrecognized sec tion and content) 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 [email or web address] provides no warranty or guarantee of the accuracy or completeness of information in this document.
[2023-12-19 12:47] LABS: Basophils Absolute Auto 0.1 10^3/uL (0.0-0.1); Basophils Percent Auto 1.1 % (0.2-2.0); Eosinophils Absolute Auto 0.3 10^3/uL (0.0-0.7); Eosinophils Percent Auto 3.3 % (0.9-7.0); Hematocrit 45.7 % (42.0-54.0); Hemoglobin 14.9 g/dL (14.0-18.0); Immature Granulocytes Abs Auto 0.05 10^3/uL (0.00-0.03); Immature Granulocytes Pct Auto 0.5 % (0.0-0.5); Lymphocytes Absolute Auto 3.3 10^3/uL (1.2-3.8); Lymphocytes Percent Auto 34.5 % (20.5-60.0); Mean Corpuscular HGB Conc 32.6 g/dL (29.9-35.2); Mean Corpuscular Hemoglobin 26.8 pg (25.9-34.0); Mean Corpuscular Volume 82.2 fL (80.0-94.0); Mean Platelet Volume 9.4 fL (9.5-13.5); Monocytes Absolute Auto 0.9 10^3/uL (0.3-0.8); Monocytes Percent Auto 9.2 % (1.7-12.0); Neutrophils Absolute Auto 4.9 10^3/uL (1.4-6.5); Neutrophils Percent Auto 51.4 % (43.0-75.0); Platelet Count 299 10^3/uL (150-450); Red Blood Count 5.56 10^6/uL (4.70-6.10); Red Cell Distribution Width 21.6 % (11.0-15.0); White Blood Count 9.4 10^3/uL (4.0-11.0)
[2023-12-19 14:03] LABS: Percent Iron Saturation 37.6 %
== END 2023-12-19 12:02 | disposition home or self-care (01) ==
LOC: LAB 12:02
PROVIDERS: PCP Family Medicine; Visit Provider Internal Medicine Hematology & Oncology
DX: D50.9 Iron deficiency anemia, unspecified (principal); R71.8 Other abnormality of red blood cells
CPT/HCPCS: 36415; 82728; 83020; 83540; 83550; 85025

== ENCOUNTER 2023-12-26 07:37 | Outpatient (RCR) | payer BC, SELFPAY ==
[2023-12-26 14:54] LABS: Basophils Absolute Auto 0.1 10^3/uL (0.0-0.1); Basophils Percent Auto 0.7 % (0.2-2.0); Eosinophils Absolute Auto 0.3 10^3/uL (0.0-0.7); Hematocrit 47.9 % (42.0-54.0); Hemoglobin 15.7 g/dL (14.0-18.0); Immature Granulocytes Abs Auto 0.02 10^3/uL (0.00-0.03); Immature Granulocytes Pct Auto 0.2 % (0.0-0.5); Lymphocytes Absolute Auto 3.5 10^3/uL (1.2-3.8); Lymphocytes Percent Auto 36.4 % (20.5-60.0); Mean Corpuscular HGB Conc 32.8 g/dL (29.9-35.2); Mean Corpuscular Hemoglobin 27.5 pg (25.9-34.0); Monocytes Absolute Auto 0.7 10^3/uL (0.3-0.8); Monocytes Percent Auto 7.5 % (1.7-12.0); Neutrophils Absolute Auto 5.1 10^3/uL (1.4-6.5); Neutrophils Percent Auto 52.2 % (43.0-75.0); Platelet Count 269 10^3/uL (150-450); Red Cell Distribution Width 21.4 % (11.0-15.0); White Blood Count 9.7 10^3/uL (4.0-11.0)
[2023-12-26 15:00] LABS: Lactate Dehydrogenase 211 U/L (85-227)
[2023-12-27 15:09] LABS: Albumin 3.7 g/dL (2.9-4.4); Alpha-1-Globulin 0.2 g/dL (0.0-0.4); Alpha-2-Globulin 0.7 g/dL (0.4-1.0); Gamma Globulin 0.9 g/dL (0.4-1.8); Immunoglobulin A, Qn, Serum 232 mg/dL (90-386); Immunoglobulin G, Qn, Serum 1144 mg/dL (603-1613); Immunoglobulin M, Qn, Serum 79 mg/dL (20-172); Protein, Total 6.9 g/dL (6.0-8.5)
== END 2024-01-09 23:59 | disposition home or self-care (01) ==
LOC: INF 07:37
PROVIDERS: PCP Family Medicine; Visit Provider Internal Medicine Hematology & Oncology
DX: D50.9 Iron deficiency anemia, unspecified (principal); R71.8 Other abnormality of red blood cells; D64.9 Anemia, unspecified; Z15.09 Genetic susceptibility to other malignant neoplasm
CPT/HCPCS: 82784; 83615; 84155; 84165; 85025; 86334; G0463

== ENCOUNTER 2024-04-11 15:11 | Outpatient (OUT) | payer BC, SELFPAY ==
--- OUTSIDE RECORDS SUMMARY | 2024-04-11 15:23 | XMS_ITS | CCD ---
Author Organization [facility] Care Team Providers Care 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 Name Role Phone Kell Bowling MD Primary Care Provider [phone] TAWNYA, DR KELL Romero Primary Care Unavailable [...] Romero Admitting Unavaila ble PEÑA ., DR CONINE Romero Attending Unavaila ble BOWLING, DR KELL Romero Primary Care Unavailable GRILLIS ., DR CONNIE Romero Attending Unavaila ble GRRONDA ., DR CONNIE Romero Consulting Unavaila ble [...] Unavailable Gurinder FERMIN, Luis Stallings Attending Unavailable Kell Bowling Primary Care Unavailable Margaux Estrada Attending Unavailable Margaux Estrada Admitting Unavailable MINA PINEDO Attending Unavailable Allergies Allergy Classification Reported Allergen(s) Allergy Type Date of Onset Reaction(s) Facility (2 sources) patient allergy list reviewed by nurse or physicia Propensity to adverse reactions Comment:Done [facility] Other (2 sources) Allergies Reconciled Propensity to adverse reactions Unknown [facility] Other Medications Current Medications Medication Drug Class(es) Dates Sig (Normalized) Sig (Original) Amoxicillin (1 source) Penicillin-class Antibacterial Amoxicillin Active Atenolol / Chlorthalidone (9 sources) Thiazide-like Diuretic, beta-Adrenergic Daron Start: 11-20-2023 take 1 tablet by mouth once daily Atenolol-Chlortha lidone Active 0 .ROUTE .COMPLEX 90 November 20, 2023 1:09pm TAKE 1 TABLET BY MOUTH EVERY DAY Start: 11-20-2023 End: 11-20-2023 take 1 tablet by mouth once daily Atenolol-Chlorthalidone Discontinued 1 T AB PO Daily November 20, 2023 12:00am November 20, 2023 1:09pm Start: 08-22-2022 take 1 tablet by kasi th once daily Atenolol-Chlorthalidone 50-25mg atenoloL-chlorthalidone 50-25mg, 1 (one) Tablet daily # 90, 08/22/2022, Ref. x1. Active oral daily for 90 *Pick strength-form from [employer] for eRX* Aug, Active Start: 02-05-2021 atenolol-chlor thalidone 50-25 MG tablet cyclobenzaprine hydrochloride 10 mg oral tablet (7 sources) Muscle Relaxant Start: 05-31-2022 take 1 tablet by mouth three times daily as needed cyclobenzaprine 10mg cyclobenzaprine 10mg, 1 (one) Tablet three times daily, as needed # 30, 05/31/2022, No Refill. Active oral three times daily, as needed for 0 *Reorder from [facility] for eRx and Interaction Alerts* 20 May, 2022 Active Start: 02-10-2021 End: 05-16-2021 take 1 tablet by mouth at bedtime as needed for muscle spasms cyclobenzaprine 10 MG tablet Indications: Chronic pain syndrome , Myofascial pain Take 1 tablet by mouth at bedtime as needed for Muscle spasms. 30 tablet 2 04/16/2021 05/16/2021 Active diclofenac sodium 75 mg delayed release oral tablet (9 sources) Nonsteroidal Anti-inflammatory Drug Start: 12-25-2023 take 1 tablet by mouth twice daily Diclofenac Sodium Active 0 .ROUTE .COMPLEX 60 December 25, 2023 12:59pm TAKE 1 TABLET BY MOUTH TWICE A DAY Start: 12-25-2023 End: 12-25-2023 take 75 mg by mouth twice daily Diclofenac Sodium Discontinued 75 MG PO Twice daily December 25, 2023 12:00am December 25, 2023 12:59pm Start: 02-05-2021 diclofenac EC [address] tablet DULoxetine 30 mg delayed release oral capsule (11 sources) Serotonin and Norepinephrine Reuptake Inhibitor Start: 12-20-2023 take 1 capsule by mouth once daily Duloxetine Active 0 .ROUTE .COMPLEX 90 December 20, 2023 9:30am TAKE 1 CAPSULE BY MOUTH EVERY DAY Start: 12-20-2023 End: 12-20-2023 take 30 mg by mouth once daily Duloxetine Discontinued 30 MG PO Daily December 20, 2023 12:00am December 20, 2023 9:30am Start: 02-18-2021 End: 03-20-2021 take 1 capsule [...] Refill. Active transdermal for 0 *Reorder from [employer] for eRx and Interaction Alerts* May, Active [...] Classification Problem Date Documented Da te Episodic/Chronic Deficiency and other anemia (1 source) Anemia; Translations: [Anemia, unspecified] 11-06-2023 Episodic Deficiency and other anemia (1 source) Iron deficiency anemia; Translations: [Iron deficiency anemia, unspecified] 12-01-2023 Episodic Disorders of lipid metabolism (2 sources) Mixed [...] Test Name Value Interpretation Reference Range Facility Albumin [Mass/volume] in Ser um or Plasmaon 12-26-2023 Albumin [Mass/Vol] 3.7 g/dL 2.9-4.4 [facility] Basophils Auto (Bld) [#/Vol] on 12-26-2023 Basophils (Bld) [#/Vol] 0.1 10 3/uL 0.0-0.1 [facility] Basophils/100 WBC Auto (Bld) on 12-26-2023 Basophils/100 WBC (Bld) 0.7 % 0.2-2.0 [facility] Eosinophils/100 WBC Auto (Bl d)on 12-26-2023 Eosinophils/100 WBC (Bld) 3.0 % 0.9-7.0 [facility] Erythrocyte distribution wid th Auto (RBC) [Ratio]on 12-26-2023 Erythrocyte distribution width (RBC) [Ratio] 21.4 % 11.0-15.0 [facility] Hematocrit Auto (Bld) [Volum e fraction]on 12-26-2023 Hematocrit (Bld) [Volume fraction] 47.9 % 42.0-54.0 [facility] Hemoglobin [Mass/volume] in Bloodon 12-26-2023 Hemoglobin (Bld) [Mass/Vol] 15.7 g/dL 14.0-18.0 [facility] IgA [Mass/volume] in Serum o r Plasmaon 12-26-2023 IgA [Mass/Vol] 232 mg/dL 90-386 [facility] IgG [Mass/volume] in Serum o r Plasmaon 12-26-2023 IgG [Mass/Vol] 1144 mg/dL 603-1613 [facility] IgM [Mass/volume] in Serum o r Plasmaon 12-26-2023 IgM [Mass/Vol] 79 mg/dL 20-172 [facility] Bradley 12-26-2023 L Specimen: [id number] Received: 12/27/23 Status: KELSIE Johnson Num: [id number] Spec Type: Impression Subm Dr: Margaux Estrada MD Tissues: PATHPER Procedures: PATHREVIEW Age/ Patient Sex Location Account Attending Physician Manuel Rosas 53/M LABELL [id number] Margaux Estrada MD SPEC NUM: [id number] RECD: 12/27/23 STATUS: KELSIE JOHNSON NUM: [id number] MAYRA: 12/26/[address]: Margaux Estrada MD ENTERED: 12/27/[address] [facility] [address]: Chase Oropeza SPEC TYPE: Impression DEPT: KELSIE Jackson ENTERED BY: [id number] RECV BY: [id number] ORDERED: PATHREVIEW ORDERED: PATHREVIEW Pathologist Review Occasional atypical lymphocytes are noted. Atypical infection should be ruled out. ---- ---- Specimen: [id number] Received: 12/27/23 Status: KELSIE Elizabeth Num: [id number] Spec Type: Impression Subm Dr: Margaux Estrada MD Tissues: PATHPER Procedures: PATHREVIEW ---- Patient: Manuel Rosas [id number] (Continued) ---- Signed (signature on file) Elroy Hutchins MD 12/27/23 1523 Normal [facility] Laboratory - Chemistry and C hemistry - challengeon 12-26-2023 LDH [Catalytic activity/Vol] 211 U/L 85-227 [facility] Protein [Mass/Vol] 0.2 g/dL Not Observed [facility] Laboratory - Hematology and Cell countson 12-26-2023 Immature granulocytes/100 WBC (Bld) 0.2 % 0.0-0.5 [facility] Leukocytes [#/volume] correc josé for nucleated erythrocytes in Blood by Automated counon 12-26-2023 WBC corrected for nucl RBC Auto (Bld) [#/Vol] 9.7 10 3/uL 4.0-11.0 [facility] Lymphocytes Auto (Bld) [#/Vo l]on 12-26-2023 Lymphocytes (Bld) [#/Vol] 3.5 10 3/uL 1.2-3.8 [facility] Lymphocytes/100 WBC Auto (Bl d)on 12-26-2023 Lymphocytes/100 WBC (Bld) 36.4 % 20.5-60.0 [facility] MCH Auto (RBC) [Entitic mass ]on 12-26-2023 MCH (RBC) [Entitic mass] 27.5 pg 25.9-34.0 [facility] MCHC Auto (RBC) [Mass/Vol]on 12-26-2023 MCHC (RBC) [Mass/Vol] 32.8 g/dL 29.9-35.2 [facility] MCV Auto (RBC) [Entitic vol] on 12-26-2023 MCV (RBC) [Entitic vol] 84.0 fL 80.0-94.0 [facility] Monocytes Auto (Bld) [#/Vol] on 12-26-2023 Monocytes (Bld) [#/Vol] 0.7 10 3/uL 0.3-0.8 [facility] Monocytes/100 WBC Auto (Bld) on 12-26-2023 Monocytes/100 WBC (Bld) 7.5 % 1.7-12.0 [facility] Neutrophils Auto (Bld) [#/Vo l]on 12-26-2023 Neutrophils (Bld) [#/Vol] 5.1 10 3/uL 1.4-6.5 [facility] Neutrophils/100 WBC Auto (Bl d)on 12-26-2023 Neutrophils/100 WBC (Bld) 52.2 % 43.0-75.0 [facility] No Panel Informationon 12-25 Eosinophils # (Auto) 0.3 10 3/uL 0.0-0.7 [facility] Immature Granulocyte # (Auto) 0.02 10 3/uL 0.00-0.03 [facility] Protein Electrophoresis Note Comment . [facility] Comment on above: Protein electrophore sis scan will follow via computer,mail, or prorate clerk delivery.Performed at: [address] [id number] Director: Checo Pitts PhD, Phone: [phone] Platelet mean volume Auto (B ld) [Entitic vol]on 12-26-2023 Platelet mean volume (Bld) [Entitic vol] 10.0 fL 9.5-13.5 [facility] Platelets Auto (Bld) [#/Vol] on 12-26-2023 Platelets (Bld) [#/Vol] 269 10 3/uL 150-450 [facility] Protein [Mass/volume] in Ser um or Plasmaon 12-26-2023 Protein [Mass/Vol] 6.9 g/dL 6.0-8.5 [facility] RBC Auto (Bld) [#/Vol]on RBC (Bld) [#/Vol] 5.70 10 6/uL 4.70-6.10 [facility] Serum globulin measurement ( mass/volume)on 12-26-2023 Globulin (S) [Mass/Vol] 3.2 g/dL 2.2-3.9 [facility] Serum or plasma albumin/glob ulin mass ratioon 12-26-2023 Albumin/Globulin [Mass ratio] 1.2 {ratio} 0.7-1.7 [facility] Serum or plasma alpha 1 glob ulin measurement by electrophoresis (mass/volume)on 12-26-2023 Alpha 1 globulin Elph [Mass/Vol] 0.2 g/dL 0.0-0.4 [facility] Serum or plasma alpha 2 glob ulin measurement by electrophoresis (mass/volume)on 12-26-2023 Alpha 2 globulin Elph [Mass/Vol] 0.7 g/dL 0.4-1.0 [facility] Serum or plasma beta globuli n measurement by electrophoresis (mass/volume)on 12-26-2023 Beta globulin Elph [Mass/Vol] 1.5 g/dL 0.7-1.3 [facility] Serum or plasma gamma globul in measurement by electrophoresis (mass/volume)on 12-26-2023 Gamma globulin Elph [Mass/Vol] 0.9 g/dL 0.4-1.8 [facility] Serum or plasma immunoelectr ophoresis interpretationon 12-26-2023 Interpretation IEP [Interp] Comment . [facility] Comment on above: Immunofixation shows IgG monoclonal protein with lambdalight chain specificity. Basophils Auto (Bld) [#/Vol] on 12-19-2023 Basophils (Bld) [#/Vol] 0.1 10 3/uL 0.0-0.1 [facility] Basophils/100 WBC Auto (Bld) on 12-19-2023 Basophils/100 WBC (Bld) 1.1 % 0.2-2.0 [facility] Eosinophils/100 WBC Auto (Bl d)on 12-19-2023 Eosinophils/100 WBC (Bld) 3.3 % 0.9-7.0 [facility] Erythrocyte distribution wid th Auto (RBC) [Ratio]on 12-19-2023 Erythrocyte distribution width (RBC) [Ratio] 21.6 % 11.0-15.0 [facility] Hematocrit Auto (Bld) [Volum e fraction]on 12-19-2023 Hematocrit (Bld) [Volume fraction] 45.7 % 42.0-54.0 [facility] Hemoglobin [Mass/volume] in Bloodon 12-19-2023 Hemoglobin (Bld) [Mass/Vol] 14.9 g/dL 14.0-18.0 [facility] Iron binding capacity [Mass/ volume] in Serum or Plasmaon 12-19-2023 Iron binding capacity [Mass/Vol] 370.0 ug/dL 250.0-450.0 [facility] Iron saturation [Mass Fracti on] in Serum or Plasmaon 12-19-2023 Iron saturation [Mass fraction] 37.6 % [facility] Laboratory - Chemistry and C hemistry - challengeon 12-19-2023 Ferritin [Mass/Vol] 31.0 ng/mL 26.0-388.0 [facility] Iron [Mass/Vol] 139.0 ug/dL 65.0-175.0 [facility] Laboratory - Hematology and Cell countson 12-19-2023 Immature granulocytes/100 WBC (Bld) 0.5 % 0.0-0.5 [facility] Leukocytes [#/volume] correc josé for nucleated erythrocytes in Blood by Automated counon 12-19-2023 WBC corrected for nucl RBC Auto (Bld) [#/Vol] 9.4 10 3/uL 4.0-11.0 [facility] Lymphocytes Auto (Bld) [#/Vo l]on 12-19-2023 Lymphocytes (Bld) [#/Vol] 3.3 10 3/uL 1.2-3.8 [facility] Lymphocytes/100 WBC Auto (Bl d)on 12-19-2023 Lymphocytes/100 WBC (Bld) 34.5 % 20.5-60.0 [facility] MCH Auto (RBC) [Entitic mass ]on 12-19-2023 MCH (RBC) [Entitic mass] 26.8 pg 25.9-34.0 [facility] MCHC Auto (RBC) [Mass/Vol]on 12-19-2023 MCHC (RBC) [Mass/Vol] 32.6 g/dL 29.9-35.2 [facility] MCV Auto (RBC) [Entitic vol] on 12-19-2023 MCV (RBC) [Entitic vol] 82.2 fL 80.0-94.0 [facility] Monocytes Auto (Bld) [#/Vol] on 12-19-2023 Monocytes (Bld) [#/Vol] 0.9 10 3/uL 0.3-0.8 [facility] Monocytes/100 WBC Auto (Bld) on 12-19-2023 Monocytes/100 WBC (Bld) 9.2 % 1.7-12.0 [facility] Neutrophils Auto (Bld) [#/Vo l]on 12-19-2023 Neutrophils (Bld) [#/Vol] 4.9 10 3/uL 1.4-6.5 [facility] Neutrophils/100 WBC Auto (Bl d)on 12-19-2023 Neutrophils/100 WBC (Bld) 51.4 % 43.0-75.0 [facility] No Panel Informationon 12-18 Eosinophils # (Auto) 0.3 10 3/uL 0.0-0.7 [facility] Immature Granulocyte # (Auto) 0.05 10 3/uL 0.00-0.03 [facility] Miscellaneous Test COMMENT . [facility] Comment on above: Test Ordered: [id number] Hgb Fractionation CascadeHgb F 0.0 % CB Reference Range: 0.0-2.0Hgb A 97.8 % CB Reference Range: 96.4-98.8Hgb A2 2.2 % CB Reference Range: 1.8-3.2Hgb S 0.0 % CB Reference Range: 0.0Interpretation: Comment CB Reference Range: .Normal hemoglobin present; no hemoglobin variant or betathalassemia identified.Note: Alpha thalassemia may not be detected by the HgbFractionation Mcminn panel. If alpha thalassemia issuspected, [facility] offers Alpha-Thalassemia DNA Analysis(#[id number]).Performed at: - [id number] [place], [place] [id number] Director: Checo Pitts PhD, Phone: [phone] Platelet mean volume Auto (B ld) [Entitic vol]on 12-19-2023 Platelet mean volume (Bld) [Entitic vol] 9.4 fL 9.5-13.5 [facility] Platelets Auto (Bld) [#/Vol] on 12-19-2023 Platelets (Bld) [#/Vol] 299 10 3/uL 150-450 [facility] RBC Auto (Bld) [#/Vol]on RBC (Bld) [#/Vol] 5.56 10 6/uL 4.70-6.10 [facility] Basophils Auto (Bld) [#/Vol] on 11-08-2023 Basophils (Bld) [#/Vol] 0.1 10 3/uL 0.0-0.1 [facility] Basophils/100 WBC Auto (Bld) on 11-08-2023 Basophils/100 WBC (Bld) 0.9 % 0.2-2.0 [facility] Eosinophils/100 WBC Auto (Bl d)on 11-08-2023 Eosinophils/100 WBC (Bld) 3.2 % 0.9-7.0 [facility] Erythrocyte distribution wid th Auto (RBC) [Ratio]on 11-08-2023 Erythrocyte distribution width (RBC) [Ratio] 17.4 % 11.0-15.0 [facility] Hematocrit Auto (Bld) [Volum e fraction]on 11-08-2023 Hematocrit (Bld) [Volume fraction] 43.5 % 42.0-54.0 [facility] Hemoglobin [Mass/volume] in Bloodon 11-08-2023 Hemoglobin (Bld) [Mass/Vol] 13.2 g/dL 14.0-18.0 [facility] Laboratory - Chemistry and C hemistry - challengeon 11-08-2023 Cobalamin (Vitamin B12) [Mass/Vol] 986.0 pg/mL 193.0-986.0 [facility] Ferritin [Mass/Vol] 14.0 ng/mL 26.0-388.0 [facility] Laboratory - Hematology and Cell countson 11-08-2023 Immature granulocytes/100 WBC (Bld) 0.2 % 0.0-0.5 [facility] Leukocytes [#/volume] correc josé for nucleated erythrocytes in Blood by Automated counon 11-08-2023 WBC corrected for nucl RBC Auto (Bld) [#/Vol] 10.0 10 3/uL 4.0-11.0 [facility] Lymphocytes Auto (Bld) [#/Vo l]on 11-08-2023 Lymphocytes (Bld) [#/Vol] 3.6 10 3/uL 1.2-3.8 [facility] Lymphocytes/100 WBC Auto (Bl d)on 11-08-2023 Lymphocytes/100 WBC (Bld) 35.5 % 20.5-60.0 [facility] MCH Auto (RBC) [Entitic mass ]on 11-08-2023 MCH (RBC) [Entitic mass] 23.9 pg 25.9-34.0 [facility] MCHC Auto (RBC) [Mass/Vol]on 11-08-2023 MCHC (RBC) [Mass/Vol] 30.3 g/dL 29.9-35.2 [facility] MCV Auto (RBC) [Entitic vol] on 11-08-2023 MCV (RBC) [Entitic vol] 78.7 fL 80.0-94.0 [facility] Monocytes Auto (Bld) [#/Vol] on 11-08-2023 Monocytes (Bld) [#/Vol] 0.9 10 3/uL 0.3-0.8 [facility] Monocytes/100 WBC Auto (Bld) on 11-08-2023 Monocytes/100 WBC (Bld) 8.5 % 1.7-12.0 [facility] Neutrophils Auto (Bld) [#/Vo l]on 11-08-2023 Neutrophils (Bld) [#/Vol] 5.2 10 3/uL 1.4-6.5 [facility] Neutrophils/100 WBC Auto (Bl d)on 11-08-2023 Neutrophils/100 WBC (Bld) 51.7 % 43.0-75.0 [facility] No Panel Informationon 11-08 Eosinophils # (Auto) 0.3 10 3/uL 0.0-0.7 [facility] Folate 19.60 ng/mL 8.60-58.90 [facility] Immature Granulocyte # (Auto) 0.02 10 3/uL 0.00-0.03 [facility] Platelet mean volume Auto (B ld) [Entitic vol]on 11-08-2023 Platelet mean volume (Bld) [Entitic vol] 9.4 fL 9.5-13.5 [facility] Platelets Auto (Bld) [#/Vol] on 11-08-2023 Platelets (Bld) [#/Vol] 384 10 3/uL 150-450 [facility] RBC Auto (Bld) [#/Vol]on RBC (Bld) [#/Vol] 5.53 10 6/uL 4.70-6.10 [facility] Ambulatory Visit Summaryon 1 09-25-2022 Ambulatory Visit Summary MANUEL ROSAS :1970 Visit Date:07/26/2023 Ambulatory Visit Instructions Your Diagnosis Male hypogonadism BPH (benign prostatic hyperplasia) Impotence Your Care Team Attending Physician - Camilo FERMIN, Chata Inman Primary Care Physician - KELL BOWLING MD This Is Your Medications List testosterone (testosterone 20.25 mg/1.25 g (1.62%) transdermal gel) Contact prescribing physician if questions or concerns atenolol-chlorthalidon e (atenolol-chlorthalido ne 50 mg-25 mg Tab) diclofenac (diclofenac sodium [...] [facility] Lab Reportson 07-26-2023 Lab Reports [id number]#1.00 TIFF Normal [facility] Lab Reports [id number]#1. 00TIFF Normal [facility] Medication Consenton 023 Medication Consent [id number]#1. 00TIFF Normal [facility] Patient Educationon 07-26-20 23 Patient Education [...] Follow these instructions at home: ? Take [id number] and prescription medicines only as told by [...] the medicine (more content not included)... Normal [facility] Reminderson 07-26-2023 Reminders - From: Meme Haley To: EU - Recalls Lue; Sent: 07/26/2023 11:33:52 EST Show up: 05/26/2024 12:33:00 EDT Subject: Labs Due Date/Time: 07/26/2024 11:33:00 EST Pt will need T Level, HCT and PSA prior to appt. PSA is done by PCP. Normal [facility] Screenson 07-26-2023 Screens [id number]#1. 00TIFF [facility] Screens [id number]#1. 00TIFF [facility] Urology Office/Clinic Noteon 07-26-2023 Urology Office/Clinic Note Chief Complaint 6m Testosterone Level HPI Staff 6m Testosterone Level DX: Hypogonadism, Impotence & BPH *Cialis 10mg PRN (occasionally uses 20mg) & Androgel 2 pumps qd PSA 07/05/23- 0.78 CBC/CMP 07/05/23 *BUN 21.0 & Crea 1.48 eGFR 50 *Hgb 12.3 & Hct 38.9 A1C 07/05/23- 5.8 Testosterone 07/20/23- 366 (378-718) Pt has no concerns at this time. [...] 324 07/19/21 - 754 07/20/23 - 366 (264-236) Hgb 12.3 & Hct 38.9 Reviewed labs [...] With When Contact Information Camilo FERMIN, Chata Inman UROdilon, URO In 1 year Additional Instructions: w/Testosterone [...] History Hernia (07/12/2023), Vasectomy (08/31/2007), Arthroscopy. Medications atenolol-chlorthalidon e 50 mg-25 mg Tab Cialis 10 mg [...] mRNA BNT-162b2 vax (more content not included)... [facility] Comment on above: Result Comment: Elec tronically Signed By: Chata Page MD\.br\Date and Time Signed: 07/26/23 08:57 EST\.br\Electronically Co-Signed By: Meme Haley\.br\Date and Time Co-Signed: 07/26/23 08:37 EST Lab Reportson 07-24-2023 Lab Reports [id number]#1.0 0TIFF [facility] Ambulatory Visit Summaryon 0 01-11-2023 Ambulatory Visit Summary MANUEL ROSAS :1970 Visit Date:01/11/2023 Ambulatory Visit Instructions Your Diagnosis Impotence Male hypogonadism BPH (benign prostatic hyperplasia) Tests Performed Urnls Dip Stick Auto w/o Microscopy POC [id number] Your Care Team Attending Physician - Chata Page MD Primary Care Physician - KELL BOWLING MD This Is Your Medications List tadalafil (Cialis 10 mg Tab) testosterone (testosterone 20.25 mg/1.25 g (1.62%) transdermal gel) Contact prescribing physician if questions or concerns atenolol-chlorthalidon e (atenolol-chlorthalido ne 50 mg-25 mg Tab) diclofenac (diclofenac sodium [...] provider. Document Revised: 08/03/2020 Document Reviewed: 08/03/2020 [employer] Patient Education ? 2022 [employer]. Normal [facility] Screenson 01-11-2023 Screens [id number]#1. 00CD:127 Normal [facility] Screens [id number]#1. 00CD:127 [facility] Urology Office/Clinic Noteon 01-11-2023 Urology Office/Clinic Note Chief Complaint 6 month follow up HPI Staff 6 month follow up w/testosterone level 487 done 01/06/23, previous testosterone level 410 done 06/20/22. Previous DX: BPH, impotence, male hypogonadism. Pt is currently taking Cialis 10mg PRN, and AndroGel 2 pumps daily-refill on both medications sent to [facility] in [place]. IPSS is , MAKI 22. Dysuria: denies [...] Androgel 2 pumps daily. Refill sent to [address]. Good range and sx improvement, prior CBC [...] data Procedure/Surgical History Vasectomy (08/31/2007), Arthroscopy. Medications atenolol-chlorthalidon e 50 mg-25 mg Tab Cialis 10 mg [...] Urine Dips (more content not included)... [facility] Comment on above: Result Comment: Elec tronically Signed By: Chata Page MD\.br\Date and Time Signed: 01/11/23 19:10 EDT\.br\Electronically Co-Signed By: Ericka Mcconnell.br\Date and Time Co-Signed: 01/11/23 10:32 EDT Lab Reportson 01-10-2023 Lab Reports [id number]#1.0 0CD:127 Normal [facility] TESTOSTERONE, TOTALon 2022 Testosterone [Mass/Vol] 487 ng/dL Normal 264-916 T [facility] Comment on above: Result Comment: Adul t male reference interval is based on a population of healthy nonobese males (BMI <30) between 19 and 39 years old. Joni et.al. JCEM 2017,102;5328-2572. PMID: 67218578. Performed By: #### T ESTTOT #### [facility] [address] [place] [address] Dr. Mychal Oropeza Pre-Certification Formon Pre-Certification Form [id number]#1.0 0CD:127 Normal [facility] Pre-Certification Formon Pre-Certification Form [id number]#1.0 0CD:127 Normal [facility] Pre-Certification Formon Pre-Certification Form [id number]#1.0 0CD:127 Normal [facility] US SINGLE QUAD RT UPPERon US [...] 2. Unremarkable gallbladder. Electronically authenticated by: CHRISTOFER LAURY Date: 2022-08-25 07:07 Normal [facility] Historical Records Officeon 08-19-2022 Historical Records Office [id number]#1.0 0CD:127 Normal [facility] Pre-Certification Formon Pre-Certification Form [id number]#1.0 0CD:127 Normal [facility] Patient Letter FTMCon 2021 Patient Letter [facility] August 18, 2022 MANUEL ROSAS [address] [place] [address] MANUEL ROSAS 1970 Dear Whomever it may [...] Sincerely, Dr. Chata Page MD [facility] [address] [place] [address] [place] [address] Normal [facility] TESTOSTERONE, TOTALon 2021 Testosterone [Mass/Vol] 410 ng/dL Normal 264-916 T [facility] Comment on above: Result Comment: Adul t male reference interval is based on a population of healthy nonobese males (BMI <30) between 19 and 39 years old. bouchra Quinones.al. JCEM 2017,102;1466-1985. PMID: 91002098. Performed By: #### T ESTTOT #### [facility] [address] [place] [address] Dr. Mychal Oropeza CBC AUTO DIFFon 05-27-2022 BASO # 0.1 103/ul Normal 0.0-0.1 [facility] Comment on above: Performed By: #### C BC #### [facility] [address] [place] [address] Dr. Mychal Oropeza Basophils/100 WBC (Bld) 0.9 % Normal 0.2-2.0 [facility] Comment on above: Performed By: #### C BC #### [facility] [address] [place] [address] Dr. Mychal Oropeza EO # 0.7 103/ul Normal 0.0-0.7 [facility] Comment on above: Performed By: #### C BC #### [facility] [address] [place] [address] Dr. Mychal Oropeza Eosinophils/100 WBC (Bld) 6.7 % Normal 0.9-7.0 [facility] Comment on above: Performed By: #### C BC #### [facility] [address] [place] [address] Dr. Mychal Oropeza Erythrocyte distribution width (RBC) [Ratio] 12.8 % Normal 11.0-15.0 [facility] Comment on above: Performed By: #### C BC #### [facility] [address] [place] [address] Dr. Mychal Oropeza Hematocrit (Bld) [Volume fraction] 46.9 % Normal 42.0-54.0 [facility] Comment on above: Performed By: #### C BC #### [facility] [address] [place] [address] Dr. Mychal Oropeza Hemoglobin (Bld) [Mass/Vol] 16.2 g/dL Normal 14.0-18.0 [facility] Comment on above: Performed By: #### C BC #### [facility] [address] [place] [address] Dr. Mychal Oropeza IG # 0.04 10e3/ul Critically high 0.00-0.03 [facility] Comment on above: Performed By: #### C BC #### [facility] [address] [place] [address] Dr. Mychal Oropeza IG % 0.4 % Normal 0.0-0.5 [facility] Comment on above: Performed By: #### C BC #### [facility] [address] [place] [address] Dr. Mychal Oropeza LYMPH # 4.1 103/ul Critically high 1.2-3.8 [facility] Comment on above: Performed By: #### C BC #### [facility] [address] [place] [address] Dr. Mychal Oropeza Lymphocytes/100 WBC (Bld) 37.7 % Normal 20.5-60.0 [facility] Comment on above: Performed By: #### C BC #### [facility] [address] [place] [address] Dr. Mychal Oropeza MANUAL DIFF REQ NO Normal [facility] Comment on above: Performed By: #### C BC #### [facility] [address] [place] [address] Dr. Mychal Oropeza MCH (RBC) [Entitic mass] 30.7 pg Normal 25.9-34.0 [facility] Comment on above: Performed By: #### C BC #### [facility] [address] [place] [address] Dr. Mychal Oropeza MCHC (RBC) [Mass/Vol] 34.5 g/dL Normal 29.9-35.2 [facility] Comment on above: Performed By: #### C BC #### [facility] [address] [place] [address] Dr. Mychal Oropeza MCV (RBC) [Entitic vol] 88.8 fL Normal 80.0-94.0 [facility] Comment on above: Performed By: #### C BC #### [facility] [address] [place] [address] Dr. Mychal Oropeza MONO # 0.9 103/ul Critically high 0.3-0.8 [facility] Comment on above: Performed By: #### C BC #### [facility] [address] [place] [address] Dr. Mychal Oropeza Monocytes/100 WBC (Bld) 8.1 % Normal 1.7-12.0 [facility] Comment on above: Performed By: #### C BC #### [facility] [address] [place] [address] Dr. Mychal Oropeza NEUT # 5.1 103/ul Normal 1.4-6.5 [facility] Comment on above: Performed By: #### C BC #### [facility] [address] [place] [address] Dr. Mychal Oropeza Neutrophils/100 WBC (Bld) 46.2 % Normal 43.0-75.0 [facility] Comment on above: Performed By: #### C BC #### [facility] [address] [place] [address] Dr. Mychal Oropeza Platelet mean volume (Bld) [Entitic vol] 9.7 fL Normal 9.5-13.5 [facility] Comment on above: Performed By: #### C BC #### [facility] [address] [place] [address] Dr. Mychal Oropeza PLT 308 103/ul Normal 150-450 [facility] Comment on above: Performed By: #### C BC #### [facility] [address] [place] [address] Dr. Mychal Oropeza RBC 5.28 106/ul Normal 4.70-6.10 [facility] Comment on above: Performed By: #### C BC #### [facility] [address] [place] [address] Dr. Mychal Oropeza WBC 10.9 103/ul Normal 4.0-11.0 [facility] Comment on above: Performed By: #### C BC #### [facility] [address] [place] [address] Dr. Mychal Oropeza GLYCOHEMOGLOBIN A1Con 2021 ADA RECOMMENDATION SEE BELOW Normal [facility] Comment on above: Result Comment: ADA RECOMMENDED LIMIT 4.0 - 6.0 ADA THERAPEUTIC TARGET < 7.0 ACTION SUGGESTED > 7.0 Performed By: #### A 1C #### [facility] [address] [place] [address] Dr. Mychal Oropeza Glucose [Mass/Vol] 108 mg/dL Normal [facility] Comment on above: Performed By: #### A 1C #### [facility] [address] [address] [address] Mychal Oropeza HbA1c (Bld) [Mass fraction] 5.4 % Normal 4.5-6.2 [facility] Comment on above: Performed By: #### A 1C #### [facility] [address] [address] [address] Mychal Oropeza LIPID PROFILEon 05-27-2022 CHOL-HDL RATIO NORM SEE BELOW Normal [facility] Comment on above: Result Comment: 3.3 - 4.4 LOW RISK 4.4 - 7.1 AVERAGE RISK 7.1 - 11.0 MODERATE RISK >11.0 HIGH RISK Performed By: #### T SH, LIPID, CMP #### [facility] [address] [address] [address] Mychal Oropeza Cholesterol [Mass/Vol] 207 mg/dL Critically high <=200 [facility] Comment on above: Performed By: #### T SH, LIPID, CMP #### [facility] [address] [address] [address] Mychal Oropeza Cholesterol in HDL [Mass/Vol] 47 mg/dL Normal 40-60 [facility] Comment on above: Performed By: #### T SH, LIPID, CMP #### [facility] [address] [address] [address] Mychal Oropeza Cholesterol in LDL [Mass/Vol] 122.4 mg/dL Normal [facility] Comment on above: Performed By: #### T SH, LIPID, CMP #### [facility] [address] [address] [address] Mychal Oropeza Cholesterol.total/Choles terol in HDL [Mass ratio] 4.4 {ratio} Normal [facility] Comment on above: Performed By: #### T SH, LIPID, CMP #### [facility] [address] [address] [address] Mychal Oropeza HDL NORMAL > or = 60 mg/dl - LO W CARDIOVASCULAR RISK <40 mg/dl - HIGH CARDIOVASCULAR RISK Normal [facility] Comment on above: Performed By: #### T KADIE, LIPID, CMP #### [facility] [address] [address] [address] Mychal Oropeza LDL CALC NORMAL SEE BELOW Normal [facility] Comment on above: Result Comment: <100 mg/dl OPTIMAL 100 - 129 mg/dl NEAR OR ABOVE OPTIMAL 130 - 159 mg/dl BORDERLINE HIGH 160 - 189 mg/dl HIGH >190 mg/dl VERY HIGH Performed By: #### T KADIE, LIPID, CMP #### [facility] [address] [address] [address] Mychal Oropeza Triglyceride [Mass/Vol] 188 mg/dL Critically high <=150 [facility] Comment on above: Performed By: #### T KADIE, LIPID, CMP #### [facility] [address] [place] [address] Dr. Mychal Oropeza VLDL CALC 37.6 mg/dL Normal [facility] Comment on above: Performed By: #### T KADIE, LIPID, CMP #### [facility] [address] [place] [address] Dr. Mychal Oropeza PROF 14(COMP METB)on 022 Albumin [Mass/Vol] 3.9 g/dL Normal 3.4-5.0 [facility] Comment on above: Performed By: #### T KADIE LIPID, CMP #### [facility] [address] [place] [address] Dr. Mychal Oropeza Albumin/Globulin [Mass ratio] 1.1 {ratio} Normal [facility] Comment on above: Performed By: #### T KADIE, LIPID, CMP #### [facility] [address] [place] [address] Dr. Mychal Oropeza ALP [Catalytic activity/Vol] 77 U/L Normal 46-116 [facility] Comment on above: Performed By: #### T KADIE, LIPID, CMP #### [facility] [address] [place] [address] Dr. Mychal Oropeza ALT [Catalytic activity/Vol] 56 U/L Normal 16-63 [facility] Comment on above: Performed By: #### T KADIE, LIPID, CMP #### [facility] [address] [address] [address] Mychal Oropeza Anion gap [Moles/Vol] 8.6 mmol/L Normal [facility] Comment on above: Performed By: #### T SH, LIPID, CMP #### [facility] [address] [place] [address] Dr. Mychal Oropeza AST [Catalytic activity/Vol] 30 U/L Normal 15-37 [facility] Comment on above: Performed By: #### T SH, LIPID, CMP #### [facility] [address] [place] [address] Dr. Mychal Oropeza Bilirubin [Mass/Vol] 0.6 mg/dL Normal 0.2-1.0 [facility] Comment on above: Performed By: #### T SH, LIPID, CMP #### [facility] [address] [place] [address] Dr. Mychal Oropeza Calcium [Mass/Vol] 9.2 mg/dL Normal 8.5-10.1 [facility] Comment on above: Performed By: #### T SH, LIPID, CMP #### [facility] [address] [place] [address] Dr. Mychal Oropeza Chloride [Moles/Vol] 100 mmol/L Normal 98-107 [facility] Comment on above: Performed By: #### T SH, LIPID, CMP #### [facility] [address] [place] [address] Dr. Mychal Oropeza CO2 [Moles/Vol] 30.0 mmol/L Normal 21.0-32.0 [facility] Comment on above: Performed By: #### T SH, LIPID, CMP #### [facility] [address] [place] [address] Dr. Mychal Oropeza Creatinine [Mass/Vol] 1.37 mg/dL Critically high 0.70-1.30 [facility] Comment on above: Performed By: #### T SH, LIPID, CMP #### [facility] [address] [place] [address] Dr. Mychal Oropeza EGFR-AF SLOVENIAN >60 Normal >=60 [facility] Comment on above: Performed By: #### T SH, LIPID, CMP #### [facility] [address] [address] [address] Mychal Oropeza EGFR-NON AF SLOVENIAN 55 mL/min/1.73m2 Critically low >=60 [facility] Comment on above: Performed By: #### T SH, LIPID, CMP #### [facility] [address] [address] [address] Mychal Oropeza Globulin (S) [Mass/Vol] 3.7 g/dL Normal [facility] Comment on above: Performed By: #### T SH, LIPID, CMP #### [facility] [address] [address] [address] Mychal Oropeza Glucose [Mass/Vol] 111 mg/dL Critically high 74-106 [facility] Comment on above: Performed By: #### T SH, LIPID, CMP #### [facility] [address] [place] [address] Dr. Mychal Oropeza Potassium [Moles/Vol] 3.6 mmol/L Normal 3.5-5.1 [facility] Comment on above: Performed By: #### T SH, LIPID, CMP #### [facility] [address] [address] [address] Mychal Oropeza Protein [Mass/Vol] 7.6 g/dL Normal 6.4-8.2 [facility] Comment on above: Performed By: #### T SH, LIPID, CMP #### [facility] [address] [address] [address] Mychal Oropeza Sodium [Moles/Vol] 135 mmol/L Critically low 136-145 [facility] Comment on above: Performed By: #### T SH, LIPID, CMP #### [facility] [address] [address] [address] Mychal Oropeza Urea nitrogen [Mass/Vol] 14.0 mg/dL Normal 7.0-18.0 [facility] Comment on above: Performed By: #### T SH, LIPID, CMP #### [facility] [address] [address] [address] Mychal Oropeza Urea nitrogen/Creatinine [Mass ratio] 10.2 mg/mg Normal [facility] Comment on above: Performed By: #### T SH, LIPID, CMP #### [facility] [id number] Mychal Oropeza TSHon 05-27-2022 TSH 2.907 uIU/mL Normal 0.358-3.740 [facility] Comment on above: Performed By: #### T SH, LIPID, CMP #### [facility] [id number] Mychal Oropeza TESTOSTERONE, TOTALon 2021 Testosterone [Mass/Vol] 324 ng/dL Normal 264-916 [facility] Comment on above: Result Comment: Adul t male reference interval is based on a population of healthy nonobese males (BMI <30) between 19 and 39 years old. bouchra Quinones.al. JCEM 2017,102;[id number]. PMID: [id number]. Performed By: #### T ESTTOT #### [facility] [address] [address] [address] Mychal Oropeza XR SPINE CERVICAL WITH [...] fair flexion. No instability is noted. Normal [facility] XR SPINE LUMBAR W BENDINGon 02-10-2021 [...] good range of motion without instability. Normal [facility] XR SPINE LUMBAR W BENDINGOrd ered By: Maik Barbosa on 02-10-2021 IMPRESSION: Lumbar spine visually is fairly well preserved. There is no evidence of fracture, listhesis, significant disc space narrowing or major degenerative changes. There is a very good range of motion without instability. [facility] EXAM: XR SPINE LUMBA R W BENDING [...] motion. There is no listhesis or instability. [facility] User, Interfaces - 02/10/2021 4:52 PM EDT [...] very good range of motion without instability. [facility] Vital Signs Date Time Vital Sign Value Performing Clinician Facility 08-31-2023 15:30-0500 Body height 170.18 cm Kell Bowling Other [facility] Other 08-31-2023 15:30-0500 Body mass index (BMI) [Ratio] 33.04 kg/m2 Kell Bowling Other [facility] Other 08-31-2023 15:30-0500 Body weight 95.71 kg Kell Bowling Other [facility] Other 08-31-2023 15:30-0500 Diastolic blood pressure 77 mm[Hg] Kell Bowling Other [facility] Other 08-31-2023 15:30-0500 Systolic blood pressure 119 mm[Hg] Kell Bowling Other [facility] Other 08-01-2023 08:30-0500 Body height 170.18 cm Kell Bowling Other [facility] Other 08-01-2023 08:30-0500 Body mass index (BMI) [Ratio] 35.14 kg/m2 Kell Bowling Other [facility] Other 08-01-2023 08:30-0500 Body weight 101.79 kg Kell Bowling Other [facility] Other 08-01-2023 08:30-0500 Diastolic blood pressure 82 mm[Hg] Kell Bowling Other [facility] Other 08-01-2023 08:30-0500 Systolic blood pressure 118 mm[Hg] Kell Bowling Other [facility] Other 04-16-2021 12:05-0400 Diastolic blood pressure 97 mm[Hg] Maik Barbosa MD Work Phone: [facility] 04-16-2021 12:05-0400 Heart rate 54 /min Maik Barbosa MD Work Phone: [facility] 04-16-2021 12:05-0400 Respiratory rate 16 /min Maik Barbosa MD Work Phone: [facility] 04-16-2021 12:05-0400 SaO2% (BldA) [Mass fraction] 95 % Maik Barbosa MD Work Phone: [facility] 04-16-2021 12:05-0400 Systolic blood pressure 142 mm[Hg] Maik Barbosa MD Work Phone: [facility] 03-17-2021 08:04-0400 Body height 170.2 cm Maik Barbosa MD Work Phone: [facility] 03-17-2021 08:04-0400 Body mass index (BMI) [Ratio] 34.61 kg/m2 Maik Barbosa MD Work Phone: [facility] 03-17-2021 08:04-0400 Body weight 100.25 kg Maik Barbosa MD Work Phone: [facility] 03-17-2021 08:04-0400 Diastolic blood pressure 93 mm[Hg] Maik Barbosa MD Work Phone: [facility] 03-17-2021 08:04-0400 Heart rate 74 /min Maik Barbosa MD Work Phone: [facility] 03-17-2021 08:04-0400 Respiratory rate 20 /min Maik Barbosa MD Work Phone: [facility] 03-17-2021 08:04-0400 SaO2% (BldA) [Mass fraction] 96 % Maik Barbosa MD Work Phone: [facility] 03-17-2021 08:04-0400 Systolic blood pressure 132 mm[Hg] Maik Barbosa MD Work Phone: [facility] 02-24-2021 12:02-0400 Diastolic blood pressure 100 mm[Hg] Maik Barbosa MD Work Phone: [facility] 02-24-2021 12:02-0400 Heart rate 55 /min Maik Barbosa MD Work Phone: [facility] 02-24-2021 12:02-0400 Respiratory rate 18 /min Maik Barbosa MD Work Phone: [facility] 02-24-2021 12:02-0400 SaO2% (BldA) [Mass fraction] 95 % Maik Barbosa MD Work Phone: [facility] 02-24-2021 12:02-0400 Systolic blood pressure 141 mm[Hg] Maik Barbosa MD Work Phone: [facility] 02-10-2021 11:46-0400 Body height 170.2 cm Maik Barbosa MD Work Phone: [facility] 02-10-2021 11:46-0400 Body mass index (BMI) [Ratio] 34.61 kg/m2 Maik Barbosa MD Work Phone: [facility] 02-10-2021 11:46-0400 Body weight 100.25 kg Maik Barbosa MD Work Phone: [facility] 02-10-2021 11:46-0400 Diastolic blood pressure 81 mm[Hg] Maik Barbosa MD Work Phone: [facility] 02-10-2021 11:46-0400 Heart rate 64 /min Maik Barbosa MD Work Phone: [facility] 02-10-2021 11:46-0400 Respiratory rate 18 /min Maik Barbosa MD Work Phone: [facility] 02-10-2021 11:46-0400 SaO2% (BldA) [Mass fraction] 99 % Maik Barbosa MD Work Phone: [facility] 02-10-2021 11:46-0400 Systolic blood pressure 121 mm[Hg] Maik Barbosa MD Work Phone: [facility] Encounters Encounter Date Encounter Type Care Provider Facility Start: 07-31-2024 ambulatory Chata Page Facility:[facility] Start: 02-21-2024 End: 02-21-2024 ambulatory MINA PINEDO Not Available Start: 12-26-2023 End: 12-26-2023 ambulatory Kell Bowling Facility:[facility] Start: 12-26-2023 Non-patient / Non-visit [facility] Work Phone: Start: 12-19-2023 Non-patient / Non-visit [facility] Phys[facility] Work Phone: Start: 11-20-2023 Non-patient / Non-visit [facility] Physician [facility] Work Phone: Start: 11-13-2023 End: 11-14-2023 ambulatory Luis Fairchild MD Facility:[facility] Start: 11-08-2023 Non-patient / Non-visit [facility] Physician [facility] Work Phone: Start: 10-02-2023 End: 10-02-2023 Patient encounter procedure Critical [facility] Hospital Physician [facility] Start: 08-31-2023 End: 08-31-2023 ambulatory Kell Bowling Other [facility] Other Start: 08-31-2023 Office outpatient vi sit 15 minutes [facility] Start: 08-01-2023 End: 08-01-2023 ambulatory Kell Bowling Other [facility] Other Start: 08-01-2023 Encounter for genera l adult medical examination without abnormal findings [facility] Start: 08-01-2023 Periodic preventive med est patient 40-64yrs [facility] Start: 07-26-2023 End: 07-27-2023 ambulatory Chata Page Facility:[facility] Start: 01-11-2023 End: 01-12-2023 ambulatory Chata Page Facility:[facility] Start: 01-06-2023 End: 01-07-[address] KELL [...] examination without abnormal findings DR KELL BOWLING [facility] Start: 05-27-2022 End: 05-28-[address] KELL BOWLING Facility:[facility] Start: 05-27-2022 End: 05-28-2022 Encounter for general adult medical examination without abnormal findings DR KELL BOWLING Facility:[facility] Start: 01-19-2022 End: 01-20-[address] KELL BOWLING Facility:[facility] Start: 04-16-2021 End: 04-16-2021 Patient encounter procedure Maik Barbosa MD Work Phone: [employer] [facility] Comment on above: Lumbar [...] Support Encounter Maik Barbosa MD Work Phone: [facility] Comment on above: Myofascial pain (Ara reji Dx) Start: 02-10-2021 End: 02-10-2021 Subsequent hospital visit by physician Maik Barobsa MD Work Phone: [facility] Comment on [...] Comment on above: Performed By: #### P [facility] #### [facility] [address] [place] [address] Dr. Mychal Oropeza Start: 02-10-2021 Radex spine lumbscrl compl w/bending views min 6 Maik Barbosa MD Work Phone: Plan of Treatment Date Care Activity Detail Author Start: 05-21-2021 End: 05-21-2021 Patient encounter procedure 05/21/2021 Office Visit Anesthesiology Pain Maik Carbajal MD [address] [place] [address] [facility] Start: 05-12-2021 Influenza vaccination A [facility] Start: 05-07-2021 End: 05-07-2021 Patient encounter procedure 05/07/2021 Office Visit Anesthesiology Pain Maik Carbajal MD [address] [place] [address] [facility] Start: 05-03-2021 End: 05-03-2021 Patient encounter procedure 05/03/2021 Office Visit Anesthesiology Pain Mgt Maik Barbosa MD [address] [facility] [place] [address] [phone] [facility] Start: 04-27-2021 End: 04-27-2021 Patient encounter procedure 04/27/2021 Office Visit Anesthesiology Pain Mgt Maik Barbosa MD [address] [facility] [place] [address] [facility] Start: 03-17-2021 End: 03-17-2021 Patient encounter procedure 03/17/2021 Office Visit Anesthesiology Pain Mgt Maik Barbosa MD [address] [facility] [place] [address] [phone] [facility] Start: 02-24-2021 End: 02-24-2021 Patient encounter procedure 02/24/2021 Office Visit Anesthesiology Pain Mgt Maik Barbosa MD [address] [facility] [place] [address] [phone] [facility] Start: 02-10-2021 End: 02-11-2021 DRUG SCREEN MED COMPLIANCE I DRUG SCREEN MED COMPLIANCE I Lab Routine Compliance with medication regimen Expected: 02/10/2021, Expires: 02/11/2021 [facility] Comment on above: Expected: 02/10/2021 , Expires: 02/11/2021 Start: 02-08-2020 Prostate specific antigen measurement PROSTATE CANCER SCREENING DISCUSSION [facility] Start: 02-08-2020 Zoster vaccine hzv l wilmar for subcutaneous use ZOSTER (SHINGLES) VACCINE (1 of 2) [facility] Start: 2015 Colonoscopy COLORECTAL CAN CER SCREENING DISCUSSION [facility] Start: 2010 Fasting lipid profile LIPID SCREENIN G [facility] Start: 1989 Third diphtheria, tetanus and acellular pertussis (DTaP) vaccination TDAP (ADULT) [facility] Start: 02-08-1988 Tetanus vaccination TETANUS [facility] Start: 1985 HIV screening HIV SCREENING DISCUSSI ON [facility] Start: 1982 COVID-19 VACCINE (1) COVID-19 VACCIN E (1) [facility] Start: 1970 Hepatitis C antibody , confirmatory test HEPATITIS C VIRUS SCREENING [facility] Payers Date Payer Category Payer Self-pay 2023 Unknown 2023 Unknown [id number] 2022 Unknown [id number] 2019 Unknown [id number] 2018 Unknown [id number]. [id number] 1970 Unknown [id number] 2.16.84 [id number] 1970 Unknown [id number] 2.16.84 [id number] 1970 Unknown [id number] 2.16.84 [id number] 1970 Unknown [id number] 2.16.84 [id number] 1970 Unknown [id number] 2.16.84 [id number] 1970 Unknown [id number] 2.16.84 0.1.485649.3.579.2.593 1970 Unknown [id number] 2.16.84 0.1.012703.3.579.2.593 1970 Unknown [id number] 2.16.84 0.1.822597.3.579.2.593 1970 Unknown [id number] 2.16.8 40.1.611320.3.579.2.727 1970 Unknown [id number] 2.16.8 40.1.173135.3.579.2.727 1970 Unknown [id number] 2.16.8 40.1.507107.3.579.2.727 1970 Unknown [id number] 2.16. [id number] 1970 Unknown [id number] 2.16.84 0.1.805144.3.579.2.1259 1959 Self-pay [id number] Unknown [id number] 2.16.84 [id number] Unknown [id number] Unknown [id number] 2.16.8 [id number] Social History Date Type Detail Facility Start: 02-10-2021 End: 03-17-2021 Tobacco smoking status NHIS Never smoker [facility] Start: 02-10-2021 End: 03-17-2021 Tobacco use and exposure Never used [facility] Start: 02-10-2021 End: 03-17-2021 Alcohol intake Current drinker of alcohol (finding) [facility] Start: 02-10-2021 End: 03-17-2021 Alcohol intake [facility] Start: 02-10-2021 Alcohol Comment 5 beers/week [facility] Start: 1970 Sex Assigned At Not on file A gautam [facility] Sex Assigned At Sex Assigned At [facility] Other Start: 1970 Sex Assigned At Male F [facility] Clinical Notes 02-10-2021 to 08-31-2023 Note Date [...] index [BMI] 33.0-33.9, adult (ICD-10 - Z68.33) [facility] Other 11-21-2023 Evaluation note* Encounter Date Diagnosis [...] (ICD-10 - M54.50) Pt requests referral to [facility]. He hopes to lessen his use of NSAIDs to improve his renal function. Jul, Other chronic pain (ICD-10 - G89.29) Jul, JOSÉ (obstructive sleep apnea) (ICD-10 - G47.33) Form completed for [facility]. Jul, Class 2 obesity [...] to ER and Follow-up with me immediately. [facility] Other 08-06-2021 History and physical note* Maik [...] bilateral lumbar facet block documented in this [facility]08-06-2021 History of Present illness Narrative* Humera Genao RN - 04/16/2021 11:30 AM EDT SCRUB - Shellie Alaniz RN RT - S RT Zach ALTERATIONS SEWER - N/A PIN INSERTER REGULATOR - Aurelio Genao RN Site cleansed with [...] and earlier as needed. [facility] Instructions* Patient Instructions* Geovanna Degroot RN - 04/16/2021 11:30 AM EDT [facility] Pain Management WHAT TO EXPECT AFTER A PROCEDURE Follow up appointment: Call the office ([phone]) if you have any questions or develop [...] to call us at . Thank you, [facility] History of Present illness Narrative* Maik [...] for neck pain and low back pain. 6/16/21: cervical paraspinal, rhomboid, trapezius, and lumbar paraspinal TPIs resulted in moderate relief for several days Meds: diclofenac 75mg PRN, alternated with ibuprofen PRN. Has tried OTC tylenol, celebrex with somemild relief. Damar has helped in the past, but would [...] Denies dysuria or frequency documented in this [facility]07-07-2021 Instructions* Patient Instructions* Geovanna Degroot RN [...] complications are extremely rare. documented in this [facility]06-16-[facility] History and physical note* Maik Barbosa [...] trapezius, and lumbar paraspinal documented in this [facility]06-16-[facility] History of Present illness Narrative* Madina Summers RN - 02/24/2021 11:15 AM EDT PHYSICIAN - SCRUB - Kitty Martinez RN PIN INSERTER REGULATOR - [facility] Site cleansed with chloroprep. Procedure: cervical paraspinal [...] Denies dysuria or frequency documented in [facility] History of Present illness Narrative* Maik [...] Social Gatherings with Friends and Family: Attends [employer] Services: Active Member of Clubs or Organizations: [...] tried OTC tylenol, celebrex with somemild relief. Damar has helped in the past, but would [...] within the last year. [facility] Instructions* Patient Instructions* Geovanna Degroot RN [...] read the attached handout from the [employer] with guidelines and recommendations for [...] complications are extremely rare. [facility] Diagnosis Myofascial pain- Primary Mylagia and myositis, unspecified Arthropathy of cervical facet joint Cervical spondylosis without myelopathy Spondylosis of lumbar region without myelopathy or radiculopathy Lumbosacral spondylosis without myelopathy Chronic pain syndrome Compliance with medication regimen [facility]* Diagnosis Spondylosis of lumbar region without myelopathy or radiculopathy Lumbosacral spondylosis without myelopathy [facility]* Diagnosis Myofascial pain- Primary Mylagia and myositis, unspecified documented [facility]* Diagnosis Lumbar spondylosis- Primary Lumbosacral spondylosis without myelopathy Lumbar radiculopathy Thoracic or lumbosacral neuritis or radiculitis, unspecified Spinal stenosis of cervical region Spinal stenosis in cervical region Chronic pain syndrome Myofascial pain Mylagia and myositis, unspecified documented [facility]* Diagnosis Lumbar spondylosis- Primary Lumbosacral spondylosis without myelopathy Chronic pain syndrome Myofascial pain Mylagia and myositis, unspecified documented [facility] this encounter [facility] System[facility] noteNo assessment information availableUniversity Hospitals [facility] Work Phone: History general Narrative - Reported* Type Description Date Medical History Elevated cholesterol with elevat ed triglycerides Medical History Low serum testosterone level Medical History Lumbar pain Medical History Hypertension Medical History Diverticulosis Surgical History R shoulder arthroscopy Surgical History FB R wrist Surgical History Umbilical hernia repair 11/1/20 23 Surgical History Colonoscopy 06/25/2023 Hospitalization History SEE SURGICAL HX [facility] Other Reason for Referral Status Reason Specialty Diagnoses / Procedures Referred By Contact Referred To Contact Auth Not Needed Diagnoses Myofascial pain Chronic pain syndrome Maik Barbosa MD [address] [place] [address] Scheduling Instructions Please PA and schedule: neck and back TPI (pt will need a [address] Barbosa) Reason *FU 08/08 chronic lumbar pain, would benefit from less NSAID use. Diagnosis 1 Low back pain, unspe cified (M54.50) Referral Organization [facility] Referring Provider First Name Kell Referring Provider Last Name Tawnya Referring Provider Specialty Family Medi cine Referred Organization [facility] Referred Address [address], [place],[address] Referred Provider Specialty Pain Medicin e Referral Priority Routine General Notes Es Cooper 05:14:13 PM >received today, attachments made, notes locked, referral faxed Clinical Notes f: [id number] Summary Purpose Family History No Family History Records Found Relationship Condition Age at Onset Recorded Date/T mita father Hypertension Unknown Not Specified Unknown Advance Directives No Advanced Directives Records Found Advance Directive Response Recorded Date/ Time Advance Directives No December 25, 2 024 3:00pm Chief Complaint and Reason for Visit Chief Complaint 1 Month Follow Up Amb Documentation Additional Source Comments Reason for Visit (unrecogniz ed section and content) Reason Comments Pain Reason Comments Neck Pain Status Reason Specialty Diagnoses / Procedures Referre d By Contact Referred To Contact Closed Diagnoses Myofascial pain Chronic pain syndrome Maik Barbosa MD [address] [place] [address] Reason Comments Pain Specialty Diagnoses / Procedures Referred By Justino tidwell Referred To Contact Diagnoses Lumbar facet arthropathy Maik Barbosa MD [address] [place] [address] Referral ID Status Reason Start Date Expiration Date Visits Re quested Visits Authorized [id number] Closed 04/14/2021 05/09/2022 1 1 (unrecognized sect ion and content) No Status Records FoundNo Status Records FoundNo Status Records FoundNo Status Records FoundNo Status Records FoundNo Status Records Found INFORMATION SOURCE (unrecogn ized section and content) DATE CREATED AUTHOR 05/10/2021 [facility] DATE CREATED AUTHOR AUTHOR'S ORGANIZ ATION 01/13/2023 [facility] DATE CREATED AUTHOR AUTHOR'S ORGANIZ ATION 07/27/2023 [facility] DATE CREATED AUTHOR AUTHOR'S ORGANIZ ATION 11/17/2023 [facility] DATE CREATED AUTHOR AUTHOR'S ORGANIZ ATION 12/28/2023 [facility] DATE CREATED AUTHOR AUTHOR'S ORGANIZ ATION 02/23/2024 [facility] EPIC Care Teams (unrecognized sec tion and content) 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 Relationship Specialty Start Date End Date Kell Bowling MD [facility] [facility] [place] [address] PCP - General Family Medicine 02/10/21 Team Status: Active Member Role Status Dates Kell Bowling MD Primary Care Provider Active Team Status: Inactive Member Role Status Dates Kell Bowling MD Attending Provider Active St art: October 02, 2023 End: October 02, 2023 Team Status: Active Member Role Status Dates Kell Bowling MD Primary Care Provide r, Attending Provider Active Start: November 08, 2023 Team Status: Active Member Role Status Dates Kell Bowling MD Primary Care Provider Active Start: November 20, 2023 JUNE Viramontes Attending Provider Active Start : November 20, 2023 Team Status: Active Member Role Status Dates Kell Bowling MD Primary Care Provide r, Attending Provider Active Start: December 19, 2023 Team Status: Active Member Role Status Dates Kell Bowling MD Primary Care Provide r, Attending Provider Active Start: December 26, 2023 Margaux Estrada MD Attending Provider Active St art: December 26, 2023 End: December 26, 2023 Goals (unrecognized section and content) Goals may be documented in a n alternate section FOR RECORDS PERTAINING TO PATIENTS WHO ARE [...] BE BASED ON THE PRIMARY CLINICAL RECORDS. [facility] [employer] [facility]. provides no warranty or guarantee of the accuracy or completeness of information in this document.
[2024-04-11 15:28] LABS: Basophils Absolute Auto 0.1 10^3/uL (0.0-0.1); Basophils Percent Auto 0.9 % (0.2-2.0); Eosinophils Absolute Auto 0.5 10^3/uL (0.0-0.7); Hematocrit 45.8 % (42.0-54.0); Hemoglobin 16.6 g/dL (14.0-18.0); Immature Granulocytes Abs Auto 0.02 10^3/uL (0.00-0.03); Immature Granulocytes Pct Auto 0.2 % (0.0-0.5); Lymphocytes Absolute Auto 4.6 10^3/uL (1.2-3.8); Lymphocytes Percent Auto 41.9 % (20.5-60.0); Mean Corpuscular HGB Conc 36.2 g/dL (29.9-35.2); Mean Corpuscular Hemoglobin 32.5 pg (25.9-34.0); Mean Corpuscular Volume 89.8 fL (80.0-94.0); Mean Platelet Volume 9.3 fL (9.5-13.5); Monocytes Absolute Auto 0.9 10^3/uL (0.3-0.8); Monocytes Percent Auto 8.3 % (1.7-12.0); Neutrophils Absolute Auto 4.7 10^3/uL (1.4-6.5); Neutrophils Percent Auto 43.7 % (43.0-75.0); Platelet Count 250 10^3/uL (150-450); Red Cell Distribution Width 13.3 % (11.0-15.0); White Blood Count 10.9 10^3/uL (4.0-11.0)
[2024-04-11 16:28] LABS: Percent Iron Saturation 30.2 %
== END 2024-04-11 15:12 | disposition home or self-care (01) ==
LOC: LAB 15:12
PROVIDERS: PCP Family Medicine; Visit Provider Internal Medicine Hematology & Oncology
DX: D50.9 Iron deficiency anemia, unspecified (principal); D64.9 Anemia, unspecified; Z15.09 Genetic susceptibility to other malignant neoplasm
CPT/HCPCS: 36415; 82728; 83540; 83550; 85025

== ENCOUNTER 2024-04-18 07:58 | Outpatient (RCR) | payer BC, SELFPAY | END 2024-05-11 23:59 | disposition home or self-care (01) | LOC: HEMC 07:58 | PROVIDERS: PCP Family Medicine; Visit Provider Internal Medicine Hematology & Oncology | DX: D50.9 Iron deficiency anemia, unspecified (principal); D64.9 Anemia, unspecified; Z80.3 Family history of malignant neoplasm of breast; Z80.7 Family history of other malignant neoplasms of lymphoid, hematopoietic and related tissues; Z80.1 Family history of malignant neoplasm of trachea, bronchus and lung; Z80.0 Family history of malignant neoplasm of digestive organs | CPT/HCPCS: G0463 ==

== ENCOUNTER 2024-06-11 13:29 | Outpatient (RCR) | payer BC, SELFPAY | END 2024-09-10 19:00 | disposition home or self-care (01) | LOC: PT 13:29 | PROVIDERS: PCP Family Medicine; Visit Provider Nurse Practitioner | DX: M47.816 Spondylosis without myelopathy or radiculopathy, lumbar region (principal) | CPT/HCPCS: 20561; 97113; 97140; 97162 ==

== ENCOUNTER 2024-07-16 14:25 | Outpatient (OUT) | payer BC, SELFPAY ==
--- NOTE | 2024-07-16 | CONS_ITS ---
CONSULTATION DATE: 07/16/2024 TO: Kell Jack M.D. CHIEF COMPLAINT: Includes severe bilateral lower back pain, leg pain, worse on the right side. HISTORY: Patient returns today complaining of six week history of sudden onset of exacerbation of sharp stabbing pain in his lower back and lower extremities, worse on the right side than the left side. He complains of problems with standing, walking and performing transitioning maneuvers. He also reports sitting is quite painful. He feels most comfortable in the semi-recumbent position. He denies any change in bowel and bladder habits or new sensorimotor change in the lower extremities. His KAYA on today?s visit was 60%. CURRENT MEDICATION: Includes Robaxin, diclofenac, Cymbalta with a moderate reduction in pain symptoms. EXAM: Notable for patient have hypoesthesia along the right L4 and L5 dermatome, weakness of the right quadriceps, anterior tibialis and extensor hallucis. Straight leg raise was exquisitely positive at approximately 45 degrees. There were no signs consistent with myelopathy involving the lower extremities. IMPRESSION: Our impression is patient with chronic pain secondary to right L4 and L5 radiculopathy, most likely from displaced disc. RECOMMENDATIONS: I recommend he undergo a right L4 and L5 transforaminal epidural steroid injection under fluoroscopic guidance. I have placed him on tizanidine 4 mg, half to two up to b.i.d. as he has concomitant myofascial spasm of his erector spinae muscle. Also, I would recommend he repeat his lumbosacral MRI. I have given him a script for Waymart 7.5 mg 1-2 pills up to be b.i.d. p.r.n., 20 pills were dispensed. Will see him back in the office on 07/23/2024. As part of providing excellent, safe, comprehensive care, the following was completed at our patient's visit: 1. A medication reconciliation and review to ensure accurate knowledge of current/active medications, including asking our patients to inform us about any [id number] medications or herbal remedies/nutritional supplements/alternative remedies. 2. A review to specifically ensure our patients have had annual screening for: elevated body mass index (BMI, see intake chart for exact total), tobacco use, screening for depression, and screening for unhealthy alcohol use. When screening is concerning, patients are provided with education and the specific recommendation to discuss the concerning health issue and treatment options with their primary care provider. SHAYAN
== END 2024-07-16 14:26 | disposition home or self-care (01) ==
PROVIDERS: PCP Family Medicine; Visit Provider Anesthesiology Pain Medicine
DX: M54.16 Radiculopathy, lumbar region (principal); G89.29 Other chronic pain
CPT/HCPCS: G0463

== ENCOUNTER 2024-07-22 07:00 | Day surgery (SDC) | payer BC, SELFPAY ==
--- OUTSIDE RECORDS SUMMARY | 2024-07-22 07:03 | XMS_ITS | CCD ---
Author Organization [facility] Care Team Providers Care Medical Dir Name Role Phone Kell Bowling MD Primary [...] TAWNYA, DR KELL Romero Primary Care Unavailable GRILLIJay ., DR CONNIE Romero Admitting Unavaila ble PEÑA ., DR CONNIE Romero Attending Unavaila ble TAWNYA, DR KELL Romero Primary Care Unavailable GRRONDA ., DR CONNIE Romero Admitting Unavaila ble PEÑA ., DR CONNIE Romero Attending Unavaila ble BOWLING, DR KELL Romero Primary Care Unavailable GRILLIJay ., DR CONNIE Romero Attending Unavaila ble PEÑA ., DR CONNIE Romero Consulting Unavaila ble PEÑA ., DR CONNIE Romero Admitting Unavaila ble LAURY, DR CHRISTOFER Hernandez Consulting Unavailable TAWNYA, DR KELL Romero Primary Care Unavailable PHILLIP ., DR CINTRON Attending Unavailable FISHER ., DR CINTRON Consulting Unavailable FISHER ., DR CINTRON Admitting Unavailable TAWNYA, DR KELL Romero Admitting Unavailable BOWLING, DR KELL Romero Attending Unavailable BOWLING, DR KELL Romero Consulting Unavailable BOWLING, DR KELL Romero Primary Care Unavailable Kell Bowling Unavailable Gurinder FERMIN, Luis Stallings Attending Unavailable Kell Bowling Primary Care Unavailable Margaux Estrada Attending Unavailable Margaux Estrada Admitting Unavailable MINA PINEDO Attending Unavailable BLAS GALVAN Attending Unavailable Chata Page Attending Unavailable Chata Page Attending Unavailable Allergies Allergy Classification Reported Allergen(s) Allergy Type Date of Onset Reaction(s) Facility (2 sources) patient allergy list reviewed by nurse or physicia Propensity to adverse reactions 9 Comment:Done RF Code Other (2 sources) Allergies Reconciled Propensity to adverse reactions Unknown RF Code Other Medications Current Medications Medication Drug Class(es) [...] oral daily for 90 *Pick strength-form from [employer] for eRX* Aug, Active Start: 02-05-2021 atenolol-chlor thalidone 50-25 MG tablet cyclobenzaprine hydrochloride 10 mg oral tablet (7 sources) Muscle Relaxant Start: 05-31-2022 take 1 tablet by mouth three times daily as needed cyclobenzaprine 10mg cyclobenzaprine 10mg, 1 (one) Tablet three times daily, as needed # 30, 05/31/2022, No Refill. Active oral three times daily, as needed for 0 *Reorder from [facility] for eRx and Interaction Alerts* 20 [...] Refill. Active transdermal for 0 *Reorder from [employer] for eRx and Interaction Alerts* May, Active [...] Test Name Value Interpretation Reference Range Facility Reminderson 06-04-2024 Reminders Reminders From: Meme Haley To: EU - Recalls Lue; Sent: 07/26/2023 11:33:52 EST Show up: 05/26/2024 12:33:00 EDT Subject: Labs Due Date/Time: 07/26/2024 11:33:00 EST Pt will need T Level, HCT and PSA prior to appt. PSA is done by PCP. Follow up 07/31/24 Normal [facility] Albumin [Mass/volume] in Ser um or Plasmaon 12-26-2023 Albumin [Mass/Vol] 3.7 g/dL 2.9-4.4 [facility] Basophils Auto (Bld) [#/Vol] on 12-26-2023 Basophils (Bld) [#/Vol] 0.1 10 3/uL 0.0-0.1 [facility] Basophils/100 WBC Auto (Bld) on 12-26-2023 Basophils/100 WBC (Bld) 0.7 % 0.2-2.0 [facility] Eosinophils/100 WBC Auto (Bl d)on 12-26-2023 Eosinophils/100 WBC (Bld) 3.0 % 0.9-7.0 [facility] Erythrocyte distribution wid th Auto (RBC) [Ratio]on 12-26-2023 Erythrocyte distribution width (RBC) [Ratio] 21.4 % 11.0-15.0 [facility] Hematocrit Auto (Bld) [Volum e fraction]on 12-26-2023 Hematocrit (Bld) [Volume fraction] 47.9 % 42.0-54.0 [facility] Hemoglobin [Mass/volume] in Bloodon 12-26-2023 Hemoglobin (Bld) [Mass/Vol] 15.7 g/dL 14.0-18.0 [facility] IgA [Mass/volume] in Serum o r Plasmaon 12-26-2023 IgA [Mass/Vol] 232 mg/dL 90-386 [facility] IgG [Mass/volume] in Serum o r Plasmaon 12-26-2023 IgG [Mass/Vol] 1144 mg/dL 603-1613 [facility] IgM [Mass/volume] in Serum o r Plasmaon 12-26-2023 IgM [Mass/Vol] 79 mg/dL 20-172 [facility] Bradley 12-26-2023 L Specimen: Received: 12/27/23 Status: KELSIE Blakejulisa Num: [id number] Spec Type: Impression Subm Dr: Margaux Estrada MD Tissues: PATHPER Procedures: PATHREVIEW Age/ Patient Sex Location Account Attending Physician Manuel Rosas 53/M LABELL [id number] Margaux Estrada MD SPEC NUM: RECD: 12/27/23 STATUS: KELSIE JOHNSON NUM: [id number] MAYRA: 12/26/[address]: Margaux Estrada MD ENTERED: 12/27/[address]: Chase Oropeza SPEC TYPE: Impression DEPT: KELSIE Jackson ENTERED BY: [id number] RECV BY: [id number] ORDERED: PATHREVIEW ORDERED: PATHREVIEW Pathologist Review Occasional atypical lymphocytes are noted. Atypical infection should be ruled out. ---- ---- Specimen: [id number] Received: 12/27/23-1351 Status: KELSIE Johnson Num: [id number] Spec Type: Impression Subm Dr: Margaux Estrada MD Tissues: PATHPER Procedures: PATHREVIEW ---- Patient: Manuel Rosas [id number] (Continued) ---- Signed (signature on file) Elroy Hutchins MD 12/27/23 1523 Normal [facility] Laboratory - Chemistry and C hemistry - challengeon 12-26-2023 LDH [Catalytic activity/Vol] 211 U/L 85-227 [facility] Protein [Mass/Vol] 0.2 g/dL Not Observed [facility] Laboratory - Hematology and Cell countson 12-26-2023 Immature granulocytes/100 WBC (Bld) 0.2 % 0.0-0.5 [facility] Leukocytes [#/volume] correc josé for nucleated erythrocytes in Blood by Automated counon 12-26-2023 WBC corrected for nucl RBC Auto (Bld) [#/Vol] 9.7 10 3/uL 4.0-11.0 [facility] Lymphocytes Auto (Bld) [#/Vo l]on 12-26-2023 Lymphocytes (Bld) [#/Vol] 3.5 10 3/uL 1.2-3.8 [facility] Lymphocytes/100 WBC Auto (Bl d)on 12-26-2023 Lymphocytes/100 WBC (Bld) 36.4 % 20.5-60.0 [facility] MCH Auto (RBC) [Entitic mass ]on 12-26-2023 MCH (RBC) [Entitic mass] 27.5 pg 25.9-34.0 [facility] MCHC Auto (RBC) [Mass/Vol]on 12-26-2023 MCHC (RBC) [Mass/Vol] 32.8 g/dL 29.9-35.2 [facility] MCV Auto (RBC) [Entitic vol] on 12-26-2023 MCV (RBC) [Entitic vol] 84.0 fL 80.0-94.0 [facility] Monocytes Auto (Bld) [#/Vol] on 12-26-2023 Monocytes (Bld) [#/Vol] 0.7 10 3/uL 0.3-0.8 [facility] Monocytes/100 WBC Auto (Bld) on 12-26-2023 Monocytes/100 WBC (Bld) 7.5 % 1.7-12.0 [facility] Neutrophils Auto (Bld) [#/Vo l]on 12-26-2023 Neutrophils (Bld) [#/Vol] 5.1 10 3/uL 1.4-6.5 [facility] Neutrophils/100 WBC Auto (Bl d)on 12-26-2023 Neutrophils/100 WBC (Bld) 52.2 % 43.0-75.0 [facility] No Panel Informationon 12-25 Eosinophils # (Auto) 0.3 10 3/uL 0.0-0.7 [facility] Immature Granulocyte # (Auto) 0.02 10 3/uL 0.00-0.03 [facility] Protein Electrophoresis Note Comment . [facility] Comment on above: Protein electrophore sis scan will follow via computer,mail, or university teacher delivery.Performed at: [address] [id number] Director: Checo Pitts PhD, Phone: [phone] Platelet mean volume Auto (B ld) [Entitic vol]on 12-26-2023 Platelet mean volume (Bld) [Entitic vol] 10.0 fL 9.5-13.5 [facility] Platelets Auto (Bld) [#/Vol] on 12-26-2023 Platelets (Bld) [#/Vol] 269 10 3/uL 150-450 [facility] Protein [Mass/volume] in Ser um or Plasmaon 12-26-2023 Protein [Mass/Vol] 6.9 g/dL 6.0-8.5 [facility] RBC Auto (Bld) [#/Vol]on RBC (Bld) [#/Vol] 5.70 10 6/uL 4.70-6.10 [facility] Serum globulin measurement ( mass/volume)on 12-26-2023 Globulin (S) [Mass/Vol] 3.2 g/dL 2.2-3.9 [facility] Serum or plasma albumin/glob ulin mass ratioon 12-26-2023 Albumin/Globulin [Mass ratio] 1.2 {ratio} 0.7-1.7 [facility] Serum or plasma alpha 1 glob ulin measurement by electrophoresis (mass/volume)on 12-26-2023 Alpha 1 globulin Elph [Mass/Vol] 0.2 g/dL 0.0-0.4 [facility] Serum or plasma alpha 2 glob ulin measurement by electrophoresis (mass/volume)on 12-26-2023 Alpha 2 globulin Elph [Mass/Vol] 0.7 g/dL 0.4-1.0 [facility] Serum or plasma beta globuli n measurement by electrophoresis (mass/volume)on 12-26-2023 Beta globulin Elph [Mass/Vol] 1.5 g/dL 0.7-1.3 [facility] Serum or plasma gamma globul in measurement by electrophoresis (mass/volume)on 12-26-2023 Gamma globulin Elph [Mass/Vol] 0.9 g/dL 0.4-1.8 [facility] Serum or plasma immunoelectr ophoresis interpretationon 12-26-2023 Interpretation IEP [Interp] Comment . [facility] Comment on above: Immunofixation shows IgG monoclonal protein with lambdalight chain specificity. Basophils Auto (Bld) [#/Vol] on 12-19-2023 Basophils (Bld) [#/Vol] 0.1 10 3/uL 0.0-0.1 [facility] Basophils/100 WBC Auto (Bld) on 12-19-2023 Basophils/100 WBC (Bld) 1.1 % 0.2-2.0 [facility] Eosinophils/100 WBC Auto (Bl d)on 12-19-2023 Eosinophils/100 WBC (Bld) 3.3 % 0.9-7.0 [facility] Erythrocyte distribution wid th Auto (RBC) [Ratio]on 12-19-2023 Erythrocyte distribution width (RBC) [Ratio] 21.6 % 11.0-15.0 [facility] Hematocrit Auto (Bld) [Volum e fraction]on 12-19-2023 Hematocrit (Bld) [Volume fraction] 45.7 % 42.0-54.0 [facility] Hemoglobin [Mass/volume] in Bloodon 12-19-2023 Hemoglobin (Bld) [Mass/Vol] 14.9 g/dL 14.0-18.0 [facility] Iron binding capacity [Mass/ volume] in Serum or Plasmaon 12-19-2023 Iron binding capacity [Mass/Vol] 370.0 ug/dL 250.0-450.0 [facility] Iron saturation [Mass Fracti on] in Serum or Plasmaon 12-19-2023 Iron saturation [Mass fraction] 37.6 % [facility] Laboratory - Chemistry and C hemistry - challengeon 12-19-2023 Ferritin [Mass/Vol] 31.0 ng/mL 26.0-388.0 [facility] Iron [Mass/Vol] 139.0 ug/dL 65.0-175.0 [facility] Laboratory - Hematology and Cell countson 12-19-2023 Immature granulocytes/100 WBC (Bld) 0.5 % 0.0-0.5 [facility] Leukocytes [#/volume] correc josé for nucleated erythrocytes in Blood by Automated counon 12-19-2023 WBC corrected for nucl RBC Auto (Bld) [#/Vol] 9.4 10 3/uL 4.0-11.0 [facility] Lymphocytes Auto (Bld) [#/Vo l]on 12-19-2023 Lymphocytes (Bld) [#/Vol] 3.3 10 3/uL 1.2-3.8 [facility] Lymphocytes/100 WBC Auto (Bl d)on 12-19-2023 Lymphocytes/100 WBC (Bld) 34.5 % 20.5-60.0 [facility] MCH Auto (RBC) [Entitic mass ]on 12-19-2023 MCH (RBC) [Entitic mass] 26.8 pg 25.9-34.0 [facility] MCHC Auto (RBC) [Mass/Vol]on 12-19-2023 MCHC (RBC) [Mass/Vol] 32.6 g/dL 29.9-35.2 [facility] MCV Auto (RBC) [Entitic vol] on 12-19-2023 MCV (RBC) [Entitic vol] 82.2 fL 80.0-94.0 [facility] Monocytes Auto (Bld) [#/Vol] on 12-19-2023 Monocytes (Bld) [#/Vol] 0.9 10 3/uL 0.3-0.8 [facility] Monocytes/100 WBC Auto (Bld) on 12-19-2023 Monocytes/100 WBC (Bld) 9.2 % 1.7-12.0 [facility] Neutrophils Auto (Bld) [#/Vo l]on 12-19-2023 Neutrophils (Bld) [#/Vol] 4.9 10 3/uL 1.4-6.5 [facility] Neutrophils/100 WBC Auto (Bl d)on 12-19-2023 Neutrophils/100 WBC (Bld) 51.4 % 43.0-75.0 [facility] No Panel Informationon 12-18 Eosinophils # (Auto) 0.3 10 3/uL 0.0-0.7 [facility] Immature Granulocyte # (Auto) 0.05 10 3/uL 0.00-0.03 [facility] Miscellaneous Test COMMENT . [facility] Comment on above: Test Ordered: [id number] Hgb Fractionation CascadeHgb F 0.0 % CB Reference Range: 0.0-2.0Hgb A 97.8 % CB Reference Range: 96.4-98.8Hgb A2 2.2 % CB Reference Range: 1.8-3.2Hgb S 0.0 % CB Reference Range: 0.0Interpretation: Comment CB Reference Range: .Normal hemoglobin present; no hemoglobin variant or betathalassemia identified.Note: Alpha thalassemia may not be detected by the HgbFractionation [place] panel. If alpha thalassemia issuspected, [facility] offers Alpha-Thalassemia DNA Analysis(#[id number]).Performed at: [address] [id number] Director: Checo Pitts PhD, Phone: [phone] Platelet mean volume Auto (B ld) [Entitic vol]on 12-19-2023 Platelet mean volume (Bld) [Entitic vol] 9.4 fL 9.5-13.5 [facility] Platelets Auto (Bld) [#/Vol] on 12-19-2023 Platelets (Bld) [#/Vol] 299 10 3/uL 150-450 [facility] RBC Auto (Bld) [#/Vol]on RBC (Bld) [#/Vol] 5.56 10 6/uL 4.70-6.10 [facility] Basophils Auto (Bld) [#/Vol] on 11-08-2023 Basophils (Bld) [#/Vol] 0.1 10 3/uL 0.0-0.1 [facility] Basophils/100 WBC Auto (Bld) on 11-08-2023 Basophils/100 WBC (Bld) 0.9 % 0.2-2.0 [facility] Eosinophils/100 WBC Auto (Bl d)on 11-08-2023 Eosinophils/100 WBC (Bld) 3.2 % 0.9-7.0 [facility] Erythrocyte distribution wid th Auto (RBC) [Ratio]on 11-08-2023 Erythrocyte distribution width (RBC) [Ratio] 17.4 % 11.0-15.0 [facility] Hematocrit Auto (Bld) [Volum e fraction]on 11-08-2023 Hematocrit (Bld) [Volume fraction] 43.5 % 42.0-54.0 [facility] Hemoglobin [Mass/volume] in Bloodon 11-08-2023 Hemoglobin (Bld) [Mass/Vol] 13.2 g/dL 14.0-18.0 [facility] Laboratory - Chemistry and C hemistry - challengeon 11-08-2023 Cobalamin (Vitamin B12) [Mass/Vol] 986.0 pg/mL 193.0-986.0 [facility] Ferritin [Mass/Vol] 14.0 ng/mL 26.0-388.0 [facility] Laboratory - Hematology and Cell countson 11-08-2023 Immature granulocytes/100 WBC (Bld) 0.2 % 0.0-0.5 [facility] Leukocytes [#/volume] correc josé for nucleated erythrocytes in Blood by Automated counon 11-08-2023 WBC corrected for nucl RBC Auto (Bld) [#/Vol] 10.0 10 3/uL 4.0-11.0 [facility] Lymphocytes Auto (Bld) [#/Vo l]on 11-08-2023 Lymphocytes (Bld) [#/Vol] 3.6 10 3/uL 1.2-3.8 [facility] Lymphocytes/100 WBC Auto (Bl d)on 11-08-2023 Lymphocytes/100 WBC (Bld) 35.5 % 20.5-60.0 [facility] MCH Auto (RBC) [Entitic mass ]on 11-08-2023 MCH (RBC) [Entitic mass] 23.9 pg 25.9-34.0 [facility] MCHC Auto (RBC) [Mass/Vol]on 11-08-2023 MCHC (RBC) [Mass/Vol] 30.3 g/dL 29.9-35.2 [facility] MCV Auto (RBC) [Entitic vol] on 11-08-2023 MCV (RBC) [Entitic vol] 78.7 fL 80.0-94.0 [facility] Monocytes Auto (Bld) [#/Vol] on 11-08-2023 Monocytes (Bld) [#/Vol] 0.9 10 3/uL 0.3-0.8 [facility] Monocytes/100 WBC Auto (Bld) on 11-08-2023 Monocytes/100 WBC (Bld) 8.5 % 1.7-12.0 [facility] Neutrophils Auto (Bld) [#/Vo l]on 11-08-2023 Neutrophils (Bld) [#/Vol] 5.2 10 3/uL 1.4-6.5 [facility] Neutrophils/100 WBC Auto (Bl d)on 11-08-2023 Neutrophils/100 WBC (Bld) 51.7 % 43.0-75.0 [facility] No Panel Informationon 11-08 Eosinophils # (Auto) 0.3 10 3/uL 0.0-0.7 [facility] Folate 19.60 ng/mL 8.60-58.90 [facility] Immature Granulocyte # (Auto) 0.02 10 3/uL 0.00-0.03 [facility] Platelet mean volume Auto (B ld) [Entitic vol]on 11-08-2023 Platelet mean volume (Bld) [Entitic vol] 9.4 fL 9.5-13.5 [facility] Platelets Auto (Bld) [#/Vol] on 11-08-2023 Platelets (Bld) [#/Vol] 384 10 3/uL 150-450 [facility] RBC Auto (Bld) [#/Vol]on RBC (Bld) [#/Vol] 5.53 10 6/uL 4.70-6.10 [facility] Pre-Certification Formon Pre-Certification Form [id number]#1.0 0TIFF Normal [facility] Ambulatory Visit Summaryon 1 09-25-2022 Ambulatory Visit [...] FERMIN, Chata Inman Where: [facility] Lab Reportson 07-26-2023 Lab Reports [id number]#1.[address] [facility] Lab Reports [id number]#1. 00TIFF [facility] Medication Consenton 023 Medication Consent [id number]#1. 00TIFF [facility] Patient Educationon 07-26-20 23 Patient [...] Follow these instructions at home: ? Take aezc-gku-bftojdn and prescription medicines only as told by [...] the medicine (more content not included)... Normal [facility] Screenson 07-26-2023 Screens [id number]#1. 00TIFF Normal [facility] Screens [id number]#1. 00TIFF [facility] Urology Office/Clinic Noteon 07-26-2023 Urology Office/Clinic Note Chief Complaint 6m Testosterone Level HPI Staff 6m Testosterone Level DX: Hypogonadism, Impotence & BPH *Cialis 10mg PRN (occasionally uses 20mg) & Androgel 2 pumps qd PSA 07/05/23- 0.78 CBC/CMP 10/25/23 *BUN 21.0 & Crea 1.48 eGFR 50 *Hgb 12.3 & Hct 38.9 A1C 07/05/23- 5.8 Testosterone 07/20/23- (344-586) Pt has no concerns at this time. [...] 324 07/19/21 - 754 07/20/23 - 366 (285-636) Hgb 12.3 & Hct 38.9 Reviewed labs [...] When Contact Information Camilo FERMIN, Chata Inman, UROdilon, URO In 1 year Additional Instructions: w/Testosterone and HCT Patient Education Benign Prostatic Hyperplasia IMeme, personally scribed for Dr. Page on 07/26/2023 08:37:01. . Documentation recorded by the scribMeme romero, accurately reflects the services(s) I performed [...] [id number] vax (more content not included)... Normal [facility] Comment on above: Result Comment: Elec tronically Signed By: Chata Page MD\.br\Date and Time Signed: 07/26/23 08:57 EST\.br\Electronically Co-Signed By: Meme Haley\.br\Date and Time Co-Signed: 07/26/23 08:37 EST Lab Reportson 07-23-2023 Lab Reports [id number]#1.0 0TIFF Normal [facility] TESTOSTERONE, TOTALon 2022 Testosterone [Mass/Vol] 487 ng/dL Normal 264-916 [facility] Comment on above: Result Comment: Adul t male reference interval is based on a population of healthy nonobese males (BMI <30) between 19 and 39 years old. Joni, et.al. JCEM 2017,102;4115-6974. PMID: [id number]. Performed By: #### T ESTTOT #### [facility] [address] [place] [address] Dr. Mychal Oropeza US SINGLE QUAD RT UPPERon US SINGLE [...] by: CHRISTOFER SCHAEFFER Date: 2022-08-25 07:07 Normal [facility] TESTOSTERONE, TOTALon 2021 Testosterone [Mass/Vol] 410 ng/dL Normal 264-916 [facility] Comment on above: Result Comment: Adul t male reference interval is based on a population of healthy nonobese males (BMI <30) between 19 and 39 years old. Joni et.al. JCEM 2017,102;1625-0565. PMID: [id number]. Performed By: #### T ESTTOT #### [facility] [address] [place] [address] Dr. Mychal Oropeza CBC AUTO DIFFon 05-27-2022 BASO # 0.1 103/ul Normal 0.0-0.1 [facility] Comment on above: Performed By: #### C BC #### [facility] [address] [address] [address] Mychal Oropeza Basophils/100 WBC (Bld) 0.9 % Normal 0.2-2.0 [facility] Comment on above: Performed By: #### C BC #### [facility] [address] [address] [address] Mychal Oropeza EO # 0.7 103/ul Normal 0.0-0.7 [facility] Comment on above: Performed By: #### C BC #### [facility] [address] [address] [address] Mychal Oropeza Eosinophils/100 WBC (Bld) 6.7 % Normal 0.9-7.0 [facility] Comment on above: Performed By: #### C BC #### [facility] [address] [place] [address] Dr. Mychal Oropeza Erythrocyte distribution width (RBC) [Ratio] 12.8 % Normal 11.0-15.0 [facility] Comment on above: Performed By: #### C BC #### [facility] [address] [place] [address] Dr. Mychal Oropeza Hematocrit (Bld) [Volume fraction] 46.9 % Normal 42.0-54.0 [facility] Comment on above: Performed By: #### C BC #### [facility] [address] [place] [address] Dr. Mychal Oropeza Hemoglobin (Bld) [Mass/Vol] 16.2 g/dL Normal 14.0-18.0 [facility] Comment on above: Performed By: #### C BC #### [facility] [address] [place] [address] Dr. yMchal Oropeza IG # 0.04 10e3/ul Critically high 0.00-0.03 [facility] Comment on above: Performed By: #### C BC #### [facility] [address] [place] [address] Dr. Mychal Oropeza IG % 0.4 % Normal 0.0-0.5 [facility] Comment on above: Performed By: #### C BC #### [facility] [address] [place] [address] Dr. Mychal Oropeza LYMPH # 4.1 103/ul Critically high 1.2-3.8 [facility] Comment on above: Performed By: #### C BC #### [facility] [address] [place] [address] Dr. Mychal Oropeza Lymphocytes/100 WBC (Bld) 37.7 % Normal 20.5-60.0 [facility] Comment on above: Performed By: #### C BC #### [facility] [address] [place] [address] Dr. Mychal Oropeza MANUAL DIFF REQ NO Normal [facility] Comment on above: Performed By: #### C BC #### [facility] [address] [place] [address] Dr. Mychal Oropeza MCH (RBC) [Entitic mass] 30.7 pg Normal 25.9-34.0 [facility] Comment on above: Performed By: #### C BC #### [facility] [address] [place] [address] Dr. Mychal Oropeza MCHC (RBC) [Mass/Vol] 34.5 g/dL Normal 29.9-35.2 [facility] Comment on above: Performed By: #### C BC #### [facility] [address] [place] [address] Dr. Mychal Oropeza MCV (RBC) [Entitic vol] 88.8 fL Normal 80.0-94.0 [facility] Comment on above: Performed By: #### C BC #### [facility] [address] [place] [address] Dr. Mychal Oropeza MONO # 0.9 103/ul Critically high 0.3-0.8 [facility] Comment on above: Performed By: #### C BC #### [facility] [address] [place] [address] Dr. Mychal Oropeza Monocytes/100 WBC (Bld) 8.1 % Normal 1.7-12.0 [facility] Comment on above: Performed By: #### C BC #### [facility] [address] [place] [address] Dr. Mychal Oropeza NEUT # 5.1 103/ul Normal 1.4-6.5 [facility] Comment on above: Performed By: #### C BC #### [facility] [address] [place] [address] Dr. Mychal Oropeza Neutrophils/100 WBC (Bld) 46.2 % Normal 43.0-75.0 [facility] Comment on above: Performed By: #### C BC #### [facility] [address] [place] [address] Dr. Mychal Oropeza Platelet mean volume (Bld) [Entitic vol] 9.7 fL Normal 9.5-13.5 [facility] Comment on above: Performed By: #### C BC #### [facility] [address] [place] [address] Dr. Mychal Oropeza PLT 308 103/ul Normal 150-450 [facility] Comment on above: Performed By: #### C BC #### [facility] [address] [address] [address] Mychal Oropeza RBC 5.28 106/ul Normal 4.70-6.10 [facility] Comment on above: Performed By: #### C BC #### [facility] [address] [address] [address] Mychal Oropeza WBC 10.9 103/ul Normal 4.0-11.0 [facility] Comment on above: Performed By: #### C BC #### [facility] [address] [place] [address] Dr. Mychal Oropeza GLYCOHEMOGLOBIN A1Con 2021 ADA RECOMMENDATION SEE BELOW Normal [facility] Comment on above: Result Comment: ADA RECOMMENDED LIMIT 4.0 - 6.0 ADA THERAPEUTIC TARGET < 7.0 ACTION SUGGESTED > 7.0 Performed By: #### A 1C #### [facility] [address] [place] [address] Dr. Mychal Oropeza Glucose [Mass/Vol] 108 mg/dL Normal [facility] Comment on above: Performed By: #### A 1C #### [facility] [address] [place] [address] Dr. Mycahl Oropeza HbA1c (Bld) [Mass fraction] 5.4 % Normal 4.5-6.2 [facility] Comment on above: Performed By: #### A 1C #### [facility] [address] [place] [address] Dr. Mychal Oropeza LIPID PROFILEon 05-27-2022 CHOL-HDL RATIO NORM SEE BELOW Normal [facility] Comment on above: Result Comment: 3.3 - 4.4 LOW RISK 4.4 - 7.1 AVERAGE RISK 7.1 - 11.0 MODERATE RISK >11.0 HIGH RISK Performed By: #### T SH, LIPID, CMP #### [facility] [address] [place] [address] Dr. Mychal Oropeza Cholesterol [Mass/Vol] 207 mg/dL Critically high <=200 [facility] Comment on above: Performed By: #### T SH, LIPID, CMP #### [facility] [address] [address] [address] Mychal Oropeza Cholesterol in HDL [Mass/Vol] 47 mg/dL Normal 40-60 [facility] Comment on above: Performed By: #### T SH, LIPID, CMP #### [facility] [address] [address] [address] Mychal Oropeza Cholesterol in LDL [Mass/Vol] 122.4 mg/dL Normal [facility] Comment on above: Performed By: #### T SH, LIPID, CMP #### [facility] [address] [address] [address] Mychal Oropeza Cholesterol.total/Choles terol in HDL [Mass ratio] 4.4 {ratio} Normal [facility] Comment on above: Performed By: #### T SH, LIPID, CMP #### [facility] [address] [address] [address] Mychal Oropeza HDL NORMAL > or = 60 mg/dl - LO W CARDIOVASCULAR RISK <40 mg/dl - HIGH CARDIOVASCULAR RISK Normal [facility] Comment on above: Performed By: #### T SH, LIPID, CMP #### [facility] [address] [place] [address] Dr. Mychal Oropeza LDL CALC NORMAL SEE BELOW Normal [facility] Comment on above: Result Comment: <100 mg/dl OPTIMAL 100 - 129 mg/dl NEAR OR ABOVE OPTIMAL 130 - 159 mg/dl BORDERLINE HIGH 160 - 189 mg/dl HIGH >190 mg/dl VERY HIGH Performed By: #### T SH, LIPID, CMP #### [facility] [address] [address] [address] Mychal Oropeza Triglyceride [Mass/Vol] 188 mg/dL Critically high <=150 [facility] Comment on above: Performed By: #### T SH, LIPID, CMP #### [facility] [address] [address] [address] Mychal Oropeza VLDL CALC 37.6 mg/dL Normal [facility] Comment on above: Performed By: #### T SH, LIPID, CMP #### [facility] [address] [address] [address] Mychal Oropeza PROF 14(COMP METB)on 022 Albumin [Mass/Vol] 3.9 g/dL Normal 3.4-5.0 [facility] Comment on above: Performed By: #### T SH, LIPID, CMP #### [facility] [address] [address] [address] Mychal Oropeza Albumin/Globulin [Mass ratio] 1.1 {ratio} Normal [facility] Comment on above: Performed By: #### T SH, LIPID, CMP #### [facility] [address] [address] [address] Mychal Oropeza ALP [Catalytic activity/Vol] 77 U/L Normal 46-116 [facility] Comment on above: Performed By: #### T SH, LIPID, CMP #### [facility] [address] [address] [address] Mychal Oropeza ALT [Catalytic activity/Vol] 56 U/L Normal 16-63 [facility] Comment on above: Performed By: #### T SH, LIPID, CMP #### [facility] [address] [address] [address] Mychal Oropeza Anion gap [Moles/Vol] 8.6 mmol/L Normal [facility] Comment on above: Performed By: #### T SH, LIPID, CMP #### [facility] [address] [address] [address] Mychal Oropeza AST [Catalytic activity/Vol] 30 U/L Normal 15-37 [facility] Comment on above: Performed By: #### T SH, LIPID, CMP #### [facility] [address] [address] [address] Mychal Oropeza Bilirubin [Mass/Vol] 0.6 mg/dL Normal 0.2-1.0 [facility] Comment on above: Performed By: #### T SH, LIPID, CMP #### [facility] [address] [address] [address] Mychal Oropeza Calcium [Mass/Vol] 9.2 mg/dL Normal 8.5-10.1 [facility] Comment on above: Performed By: #### T SH, LIPID, CMP #### [facility] [address] [address] [address] Mychal Oropeza Chloride [Moles/Vol] 100 mmol/L Normal 98-107 [facility] Comment on above: Performed By: #### T SH, LIPID, CMP #### [facility] [address] [place] [address] Dr. Mychal Oropeza CO2 [Moles/Vol] 30.0 mmol/L Normal 21.0-32.0 [facility] Comment on above: Performed By: #### T SH, LIPID, CMP #### [facility] [address] [place] [address] Dr. Mychal Oropeza Creatinine [Mass/Vol] 1.37 mg/dL Critically high 0.70-1.30 [facility] Comment on above: Performed By: #### T SH, LIPID, CMP #### [facility] [address] [place] [address] Dr. Mychal Oropeza EGFR-AF FIJIAN >60 Normal >=60 [facility] Comment on above: Performed By: #### T SH, LIPID, CMP #### [facility] [address] [place] [address] Dr. Mychal Oropeza EGFR-NON AF FIJIAN 55 mL/min/1.73m2 Critically low >=60 [facility] Comment on above: Performed By: #### T SH, LIPID, CMP #### [facility] [address] [place] [address] Dr. Mychal Oropeza Globulin (S) [Mass/Vol] 3.7 g/dL Normal [facility] Comment on above: Performed By: #### T SH, LIPID, CMP #### [facility] [address] [place] [address] Dr. Mychal Oropeza Glucose [Mass/Vol] 111 mg/dL Critically high 74-106 [facility] Comment on above: Performed By: #### T SH, LIPID, CMP #### [facility] [address] [place] [address] Dr. Mychal Oropeza Potassium [Moles/Vol] 3.6 mmol/L Normal 3.5-5.1 [facility] Comment on above: Performed By: #### T SH, LIPID, CMP #### [facility] [address] [place] [address] Dr. Mychal Oropeza Protein [Mass/Vol] 7.6 g/dL Normal 6.4-8.2 [facility] Comment on above: Performed By: #### T SH, LIPID, CMP #### [facility] [address] [address] [address] Mychal Oropeza Sodium [Moles/Vol] 135 mmol/L Critically low 136-145 [facility] Comment on above: Performed By: #### T SH, LIPID, CMP #### [facility] [address] [place] [address] Dr. Mychal Oropeza Urea nitrogen [Mass/Vol] 14.0 mg/dL Normal 7.0-18.0 [facility] Comment on above: Performed By: #### T SH, LIPID, CMP #### [facility] [address] [place] [address] Dr. Mychal Oropeza Urea nitrogen/Creatinine [Mass ratio] 10.2 mg/mg Normal [facility] Comment on above: Performed By: #### T SH, LIPID, CMP #### [facility] [address] [place] [address] Dr. Mychal Oropeza TSHon 05-27-2022 TSH 2.907 uIU/mL Normal 0.358-3.740 [facility] Comment on above: Performed By: #### T SH, LIPID, CMP #### [facility] [address] [place] [address] Dr. Mychal Oropeza TESTOSTERONE, TOTALon 2021 Testosterone [Mass/Vol] 324 ng/dL Normal 264-916 [facility] Comment on above: Result Comment: Adul t male reference interval is based on a population of healthy nonobese males (BMI <30) between 19 and 39 years old. bouchra Quinones.al. JCEM 2017,102;0667-0585. PMID: [id number]. Performed By: #### T ESTTOT #### [facility] [address] [address] [address] Mychal Oropeza XR SPINE CERVICAL WITH [...] fair flexion. No instability is noted. Normal [facility] XR SPINE LUMBAR W BENDINGon 02-10-2021 [...] good range of motion without instability. Normal [facility] XR SPINE LUMBAR W BENDINGOrd ered By: Maik Barbosa on 02-10-2021 IMPRESSION: Lumbar spine visually is fairly well preserved. There is no evidence of fracture, listhesis, significant disc space narrowing or major degenerative changes. There is a very good range of motion without instability. [facility]: XR SPINE LUMBA R W [...] motion. There is no listhesis or instability. [facility] User, Interfaces - 02/10/2021 4:52 PM EDT [...] very good range of motion without instability. [facility] Vital Signs Date Time Vital Sign Value Performing Clinician Facility 08-31-2023 15:30-0500 Body height 170.18 cm Kell Bowling Other RF Code Other 08-31-2023 15:30-0500 Body mass index (BMI) [Ratio] 33.04 kg/m2 Kell Bowling Other RF Code Other 08-31-2023 15:30-0500 Body weight 95.71 kg Kell Bowling Other RF Code Other 08-31-2023 15:30-0500 Diastolic blood pressure 77 mm[Hg] Kell Bowling Other RF Code Other 08-31-2023 15:30-0500 Systolic blood pressure 119 mm[Hg] Kell Bowling Other RF Code Other 08-01-2023 08:30-0500 Body height 170.18 cm Kell Bowling Other RF Code Other 08-01-2023 08:30-0500 Body mass index (BMI) [Ratio] 35.14 kg/m2 Kell Bowling Other RF Code Other 08-01-2023 08:30-0500 Body weight 101.79 kg Kell Bowling Other RF Code Other 08-01-2023 08:30-0500 Diastolic blood pressure 82 mm[Hg] Kell Bowling Other RF Code Other 08-01-2023 08:30-0500 Systolic blood pressure 118 mm[Hg] Kell Bowling Other RF Code Other 04-16-2021 12:05-0400 Diastolic blood pressure 97 mm[Hg] Maik Barbosa MD Work Phone: [facility] 04-16-2021 12:05-0400 Heart rate 54 /min Maik Barbosa MD Work Phone: [facility] 04-16-2021 12:05-0400 Respiratory rate 16 /min Maik Barbosa MD Work Phone: [facility] 04-16-2021 12:05-0400 SaO2% (BldA) [Mass fraction] 95 % Maik Barbosa MD Work Phone: [facility] 04-16-2021 12:05-0400 Systolic blood pressure 142 mm[Hg] Maik Barbosa MD Work Phone: [facility] 03-17-2021 08:04-0400 Body height 170.2 cm Maik Barbosa MD Work Phone: [facility] 03-17-2021 08:04-0400 Body mass index (BMI) [Ratio] 34.61 kg/m2 Maik Barbosa MD Work Phone: [facility] 03-17-2021 08:04-0400 Body weight 100.25 kg Maik Barbosa MD Work Phone: [facility] 03-17-2021 08:04-0400 Diastolic blood pressure 93 mm[Hg] Maik Barbosa MD Work Phone: [facility] 03-17-2021 08:04-0400 Heart rate 74 /min Maik Barbosa MD Work Phone: [facility] 03-17-2021 08:04-0400 Respiratory rate 20 /min Maik Barbosa MD Work Phone: [facility] 03-17-2021 08:04-0400 SaO2% (BldA) [Mass fraction] 96 % Maik Barbosa MD Work Phone: [facility] 03-17-2021 08:04-0400 Systolic blood pressure 132 mm[Hg] Maik Barbosa MD Work Phone: [facility] 02-24-2021 12:02-0400 Diastolic blood pressure 100 mm[Hg] Maik Barbosa MD Work Phone: [facility] 02-24-2021 12:02-0400 Heart rate 55 /min Maik Barbosa MD Work Phone: [facility] 02-24-2021 12:02-0400 Respiratory rate 18 /min Maik Barbosa MD Work Phone: [facility] 02-24-2021 12:02-0400 SaO2% (BldA) [Mass fraction] 95 % Maik Barbosa MD Work Phone: [facility] 02-24-2021 12:02-0400 Systolic blood pressure 141 mm[Hg] Maik Barbosa MD Work Phone: [facility] 02-10-2021 11:46-0400 Body height 170.2 cm Maik Barbosa MD Work Phone: [facility] 02-10-2021 11:46-0400 Body mass index (BMI) [Ratio] 34.61 kg/m2 Maik Barbosa MD Work Phone: [facility] 02-10-2021 11:46-0400 Body weight 100.25 kg Maik Barbosa MD Work Phone: [facility] 02-10-2021 11:46-0400 Diastolic blood pressure 81 mm[Hg] Maik Barbosa MD Work Phone: [facility] 02-10-2021 11:46-0400 Heart rate 64 /min Maik Barbosa MD Work Phone: [facility] 02-10-2021 11:46-0400 Respiratory rate 18 /min Maik Barbosa MD Work Phone: [facility] 02-10-2021 11:46-0400 SaO2% (BldA) [Mass fraction] 99 % Maik Barbosa MD Work Phone: [facility] 02-10-2021 11:46-0400 Systolic blood pressure 121 mm[Hg] Maik Barbosa MD Work Phone: [facility] Encounters Encounter Date Encounter Type Care Provider Facility Start: 07-31-2024 ambulatory Chata Page Facility:[facility] Start: 05-15-2024 End: 05-15-2024 ambulatory BLAS GALVAN Not Available Start: 02-21-2024 End: 02-21-2024 ambulatory MINA PINEDO Not Available Start: 12-26-2023 End: 12-26-2023 ambulatory Kell Bowling Facility:[facility] Start: 12-26-2023 Non-patient / Non-visit [facility] Work Phone: Start: 12-19-2023 Non-patient / Non-visit [facility] Work Phone: Start: 11-20-2023 Non-patient / Non-visit [facility] Work Phone: Start: 11-13-2023 End: 11-14-2023 ambulatory Luis Fairchild MD Facility: [facility] Start: 11-08-2023 Non-patient / Non-visit [facility] Work Phone: Start: 10-02-2023 End: 10-02-2023 Patient encounter procedure [facility] Start: 08-31-2023 End: 08-31-2023 ambulatory Kell Bowling Other RF Code Other Start: 08-31-2023 Office outpatient vi sit 15 minutes Kell Bowling [facility] Start: 08-01-2023 End: 08-01-2023 ambulatory Kell Bowling Other RF Code Other Start: 08-01-2023 Encounter for genera l adult medical examination without abnormal findings Kell Bowling [facility] Start: 08-01-2023 Periodic preventive med est patient 40-64yrs Kell Bowling [facility] Start: 07-26-2023 End: 07-26-2023 ambulatory Chata Page Facility:[facility] Start: 01-06-2023 End: 01-07-[address] KELL BOWLING Facility: Start: 08-24-2022 End: 08-25-[address] KELL [...] examination without abnormal findings DR KELL BOWLING [facility] Start: 05-27-2022 End: 05-28-[address] KELL BOWLING Facility:[facility] Start: 05-27-2022 End: 05-28-2022 Encounter for general adult medical examination without abnormal findings DR KELL BOWLING Facility:[facility] Start: 01-19-2022 End: 01-20-[address] KELL BOWLING Facility:[facility] Start: 04-16-2021 End: 04-16-2021 Patient encounter procedure Maik Barbosa MD Work Phone: [facility] Comment on above: Lumbar spondylosis ( Primary Dx); Chronic pain syndrome; Myofascial pain Start: 03-17-2021 End: 03-17-2021 Office outpatient visit 15 minutes Maik Barbosa MD Work Phone: [facility] Comment on above: Lumbar spondylosis ( Primary Dx); Lumbar radiculopathy; Spinal stenosis of cervical region; Chronic pain syndrome; Myofascial pain Start: 02-24-2021 End: 02-24-2021 Clinical Support Encounter Maik Barbosa MD Work Phone: [facility] Comment on above: Myofascial pain (Ara reji Dx) Start: 02-10-2021 End: 02-10-2021 Subsequent hospital visit by physician Maik Barbosa MD Work Phone: [facility] Comment on above: Arrived Start: 02-10-2021 End: 02-10-2021 Office outpatient new 45 minutes Maik Barbosa MD Work Phone: [facility] Comment on above: Myofascial pain (Ara reji Dx); Arthropathy of cervical facet joint; Spondylosis of lumbar region without myelopathy or radiculopathy; Chronic pain syndrome; Compliance with medication regimen Procedures Date Procedure Procedure Detail Performing Clinician Start: 05-27-[address] KELL BOWLING Comment on above: Performed By: #### P [facility] #### [facility] [address] [address] [address] Mychal Oropeza Start: 02-10-2021 Radex spine lumbscrl compl w/bending views min 6 Maik Barbosa MD Work Phone: Plan of Treatment Date Care Activity Detail Author Start: 05-21-2021 End: 05-21-2021 Patient encounter procedure 05/21/2021 Office Visit Anesthesiology Pain Mgt Maik Barbosa MD [address] [place] [address] [facility] Start: 05-12-2021 Influenza vaccination A [facility] Start: 05-07-2021 End: 05-07-2021 Patient encounter procedure 05/07/2021 Office Visit Anesthesiology Pain Mgt Maik Barbosa MD [address] [place] [address] [facility] Start: 05-03-2021 End: 05-03-2021 Patient encounter procedure 05/03/2021 Office Visit Anesthesiology Pain MgMaik Kinney MD [address] [place] [address] [phone] [facility] Start: 04-27-2021 End: 04-27-2021 Patient encounter procedure 04/27/2021 Office Visit Anesthesiology Pain MgMaik Kinney MD [address] [place] [address] [facility] Start: 03-17-2021 End: 03-17-2021 Patient encounter procedure 03/17/2021 Office Visit Anesthesiology Pain MgMaik Kinney MD [address] [place] [address] [phone] [facility] Start: 02-24-2021 End: 02-24-2021 Patient encounter procedure 02/24/2021 Office Visit Anesthesiology Pain Mgt Maik Barbosa MD [address] [facility] [place] [address] [phone] [facility] Start: 02-10-2021 End: 02-11-2021 DRUG SCREEN MED COMPLIANCE I DRUG SCREEN MED COMPLIANCE I Lab Routine Compliance with medication regimen Expected: 02/10/2021, Expires: 02/11/2021 [facility] Comment on above: Expected: 02/10/2021 , Expires: 02/11/2021 Start: 02-08-2020 Prostate specific antigen measurement PROSTATE CANCER SCREENING DISCUSSION [facility] Start: 02-08-2020 Zoster vaccine hzv l wilmar for subcutaneous use ZOSTER (SHINGLES) VACCINE (1 of 2) [facility] Start: 2015 Colonoscopy COLORECTAL CAN CER SCREENING DISCUSSION [facility] Start: 2010 Fasting lipid profile LIPID SCREENIN G [facility] Start: 1989 Third diphtheria, tetanus and acellular pertussis (DTaP) vaccination TDAP (ADULT) [facility] Start: 02-08-1988 Tetanus vaccination TETANUS [facility] Start: 1985 HIV screening HIV SCREENING DISCUSSI ON [facility] Start: 1982 COVID-19 VACCINE (1) COVID-19 VACCIN E (1) [facility] Start: 1970 Hepatitis C antibody , confirmatory test HEPATITIS C VIRUS SCREENING [facility] Payers Date Payer Category Payer Self-pay 2023 Unknown 2023 Unknown [id number] 2022 Unknown [id number] 2019 Unknown [id number] 2018 Unknown [id number] 1. [id number] 1970 Unknown [id number] 2.16.84 [id number] 1970 Unknown [id number] 2.16.84 0.1.161826.3.579.2.593 1970 Unknown [id number] 2.16.84 0.1.588179.3.579.2.593 1970 Unknown [id number] 2.16.84 0.1.910044.3.579.2.593 1970 Unknown [id number] 2.16.84 0.1.220361.3.579.2.593 1970 Unknown [id number] 2.16.84 0.1.800149.3.579.2.593 1970 Unknown [id number] 2.16.84 0.1.742085.3.579.2.593 1970 Unknown [id number] 2.16.84 0.1.511789.3.579.2.593 1970 Unknown [id number] 2.16. 840.1.135392.3.579.2.196 1970 Unknown [id number] 2.16.84 0.1.148360.3.579.2.1259 1970 Unknown [id number] 2.16.84 0.1.087828.3.579.2.1259 1970 Unknown [id number] 2.16.8 40.1.251573.3.579.2.727 1970 Unknown [id number] 2.16.8 40.1.236984.3.579.2.727 1959 Self-pay [id number] Unknown [id number] 2.16.84 0.1.093259.3.579.2.593 Unknown [id number] 2.16.8 [id number] Social History Date Type Detail Facility Start: 02-10-2021 End: 03-17-2021 Tobacco smoking status NVIS Never smoker [facility] Start: 02-10-2021 End: 03-17-2021 Tobacco use and exposure Never used [facility] Start: 02-10-2021 End: 03-17-2021 Alcohol intake Current drinker of alcohol (finding) [facility] Start: 02-10-2021 End: 03-17-2021 Alcohol intake [facility] Start: 02-10-2021 Alcohol Comment 5 beers/week [facility] Start: 1970 Sex Assigned At Not on file A [employer] [facility] Sex Assigned At Sex Assigned At Bir th RF Code Other Start: 1970 Sex Assigned At Male F [facility] Clinical Notes 02-10-2021 to 08-31-2023 Note Date [...] index [BMI] 33.0-33.9, adult (ICD-10 - Z68.33) RF Code Other [id number] Evaluation note* Encounter Date Diagnosis Assessment Notes [...] (ICD-10 - M54.50) Pt requests referral to [facility]. He hopes to lessen his use of NSAIDs to improve his renal function. Jul, Other chronic pain (ICD-10 - G89.29) Jul, JOSÉ (obstructive sleep apnea) (ICD-10 - G47.33) Form completed for [facility]. Jul, Class 2 obesity [...] to ER and Follow-up with me immediately. RF Code Other 08-06-2021 History and physical note* Maik [...] bilateral lumbar facet block documented in this [facility]08-06-2021 History of Present illness Narrative* Humera Genao RN - 04/16/2021 11:30 AM EDT SCRUB - Shellie Alaniz RN RT - S RT Zach EMERGENCY PREPAREDNESS COORDINATOR - N/A RESTORATIVE COORDINATOR - Aurelio Genao RN Site cleansed with [...] and earlier as needed. [facility] Instructions* Patient Instructions* Geovanna Degroot RN - 04/16/2021 11:30 AM EDT [facility] WHAT TO EXPECT AFTER A PROCEDURE Follow up appointment: Call the office ([phone]) if you have any questions or develop [...] to call us at . [facility] you, [facility] History of Present illness Narrative* Maik [...] tried OTC tylenol, celebrex with somemild relief. [place] has helped in the past, but would [...] needed) -start topical compounded cream #3 from [facility] -continue diclofenac 75mg PO PRN -has TENS [...] Denies dysuria or frequency [facility] Instructions* Patient Instructions* Geovanna Degroot RN [...] when current is passed using the radiofrequency [employer]. This numbs the nerves. What should [...] complications are extremely rare. documented in this [facility] History and physical note* Maik Barbosa [...] trapezius, and lumbar paraspinal documented in this [facility]21 History of Present illness Narrative* Madina Summers RN - 02/24/2021 11:15 AM EDT PHYSICIAN - SCRUB - Kitty Martinez RN RESTORATIVE COORDINATOR - [facility] Site cleansed with chloroprep. [...] Denies dysuria or frequency [facility] of Present illness Narrative* Maik [...] Social Gatherings with Friends and Family: Attends [employer] Services: Active Member of Clubs or Organizations: [...] tried OTC tylenol, celebrex with somemild relief. [place] has helped in the past, but would [...] within the last year. [facility] Instructions* Patient Instructions* Geovanna Degroot RN [...] read the attached handout from the National [employer] of [employer] with guidelines and recommendations for [...] complications are extremely rare. [facility] Diagnosis Myofascial pain- Primary Mylagia and myositis, unspecified Arthropathy of cervical facet joint Cervical spondylosis without myelopathy Spondylosis of lumbar region without myelopathy or radiculopathy Lumbosacral spondylosis without myelopathy Chronic pain syndrome Compliance with medication regimen [facility] Diagnosis Spondylosis of lumbar region without myelopathy or radiculopathy Lumbosacral spondylosis without myelopathy [facility] Diagnosis Myofascial pain- Primary Mylagia and myositis, unspecified [facility] Diagnosis Lumbar spondylosis- Primary Lumbosacral spondylosis without myelopathy Lumbar radiculopathy Thoracic or lumbosacral neuritis or radiculitis, unspecified Spinal stenosis of cervical region Spinal stenosis in cervical region Chronic pain syndrome Myofascial pain Mylagia and myositis, unspecified [facility] Diagnosis Lumbar spondylosis- Primary Lumbosacral spondylosis without myelopathy Chronic pain syndrome Myofascial pain Mylagia and myositis, unspecified [facility] noteNo assessment information availableWyandot [facility] Work Phone: History general Narrative - Reported* Type Description Date Medical History Elevated cholesterol with elevat ed triglycerides Medical History Low serum testosterone level Medical History Lumbar pain Medical History Hypertension Medical History Diverticulosis Surgical History R shoulder arthroscopy Surgical History FB R wrist Surgical History Umbilical hernia repair 07/12/20 23 Surgical History Colonoscopy 06/25/2023 Hospitalization History SEE SURGICAL HX [employer] [employer] Other Reason for Referral Status Reason Specialty Diagnoses / Procedures Referred By Contact Referred To Contact Auth Not Needed Diagnoses Myofascial pain Chronic pain syndrome Maik Barbosa MD [address] [place] [address] Scheduling Instructions Please PA and schedule: neck and back TPI (pt will need a [address] Barbosa) Reason *FU 08/08 chronic lumbar pain, would benefit from less NSAID use. Diagnosis 1 Low back pain, unspe cified (M54.50) Referral Organization [facility] Referring Provider First Name Kell Referring Provider Last Name Tawnya Referring Provider Specialty Family [facility] Referred Organization [facility] Referred Address [address], [place],[address] Referred Provider Specialty Pain Medicin e Referral Priority Routine General Notes Es Cooper 05:14:13 PM >received today, attachments made, notes locked, referral faxed Clinical Notes f: [id number] Summary Purpose Family History No Family History [...] Chronic pain syndrome Maik Barbosa MD [address] [place] [address] Reason Comments Pain Specialty Diagnoses / Procedures Referred By Contac t Referred To Contact Diagnoses Lumbar facet arthropathy Maik Barbosa MD [address] [place] [address] Referral ID Status Reason Start Date Expiration Date Visits Re quested Visits Authorized [id number] Closed 04/14/2021 05/09/2022 1 1 (unrecognized sect ion and content) No Status Records FoundNo Status Records FoundNo Status Records FoundNo Status Records FoundNo Status Records FoundNo Status Records Found INFORMATION SOURCE (unrecogn ized section and content) DATE CREATED AUTHOR [facility] DATE CREATED AUTHOR AUTHOR'S ORGANIZ ATION 01/13/2023 [facility] DATE CREATED AUTHOR AUTHOR'S ORGANIZ ATION 11/17/2023 [facility] DATE CREATED AUTHOR AUTHOR'S ORGANIZ ATION 12/28/2023 [facility] DATE CREATED AUTHOR AUTHOR'S ORGANIZ ATION 05/17/2024 [facility] EPIC DATE CREATED AUTHOR AUTHOR'S ORGANIZ ATION 06/07/2024 Manuelito Villegas [facility] Care Teams (unrecognized sec tion and content) Medical Dir Relationship Specialty Start Date End Date Kell Bowling MD [address] [facility] [place] [phone] PCP - General Family Medicine 02/10/21 Team [...] Status: Active Member Role Status Dates Kell Bwoling MD Primary Care Provide r, Attending Provider [...] BE BASED ON THE PRIMARY CLINICAL RECORDS. [employer] provides no warranty or guarantee of the accuracy or completeness of information in this document.
[2024-07-22 07:14] VITALS: BP 155/104; PULSE 65; TEMP 36.5; O2SAT 98
[2024-07-22 08:03] VITALS: BP 150/106; PULSE 64; O2SAT 90
[2024-07-22 08:05] VITALS: BP 155/111; PULSE 68; O2SAT 97
--- NOTE | 2024-07-22 08:06 | P.ON_ITS ---
Date of procedure: 07/22/24 Pre-op diagnosis: Pain due to lumbar stenosis with neurogenic claudication Post-op diagnosis: same as pre-op Procedure: Procedure: Right L4-5, L5-S1 transforaminal epidural steroid injection Medications: Bupivacaine 0.25% 2cc, lidocaine 2% 1cc, kenalog 80mg The patient was seen and examined in the preoperative holding area.? Informed consent was obtained and placed on the chart.? Patient was brought to the medical procedure unit and placed in the prone position where a timeout was completed verifying the correct patient, procedure site, position, and planned special equipment using sterile aseptic technique.? Under direct fluoroscopic visualization a 25-gauge Quincke tipped spinal needle was advanced to the designated neural foramen where contrast dye was injected to show adequate spread.? The needle was inserted at level right L4-5. There was no evidence of vascular or adverse uptake.? Epidural spread was appreciated.? The above- mentioned injectate was then placed in a 1.5 mL aliquot preceded by negative aspiration.? The needle was removed. The needle was inserted and the procedure repeated at level right L5-S1.? The surgery site was covered.? Patient was taken to the postprocedural recovery area and monitored for an appropriate length of time before found suitable for discharge in the accompaniment of a responsible adult. Anesthesia: Local Surgeon: Luis Fairchild Pathology: none sent Condition: stable Disposition: no change
[2024-07-22] MEDS: LIDOCAINE HCL 2% 400 MG/20 ML MDV 3 ML INJ (08:08)
[2024-07-22] MEDS: IOHEXOL 240 MG/ML - 10 ML VIAL 24 MG INJ (08:08)
[2024-07-22] MEDS: 0.9 % SODIUM CHLORIDE 10 ML SYRINGE - SALINE FLUSH INJ (08:08)
[2024-07-22] MEDS: BUPIVACAINE HCL 0.25% PF 25 MG/10 ML VIAL INJ (08:08)
[2024-07-22] MEDS: TRIAMCINOLONE ACETONIDE 40 MG/ML VIAL 80 MG INJ (08:09)
== END 2024-07-22 08:10 | disposition home or self-care (01) ==
LOC: SURGOUT 07:00
PROVIDERS: PCP Family Medicine; Visit Provider Anesthesiology
DX: M48.062 Spinal stenosis, lumbar region with neurogenic claudication (principal); M51.16 Intervertebral disc disorders with radiculopathy, lumbar region
CPT/HCPCS: 64483; 64484; 72148; J0665; J3301; Q9966

== ENCOUNTER 2024-07-22 08:19 | Outpatient (OUT) | payer BC, SELFPAY ==
--- NOTE | 2024-07-22 08:20 | MR_ITS ---
The [address] [address] Patient Name: AMADA ROSAS MRN: [id number] date: 1970 Sex: M Assigned Patient Location: MRI Current Patient Location: MRI Accession/Order Number: [id number] Exam Date: 07/22/2024 08:50 Report Date: 07/23/2024 11:08 At the request of: EMELIA MORE Procedure: MR lumbar spine wo con EXAM: MR lumbar spine wo con HISTORY: Lumbar Radiculopathy. Lumbar spine pain for 6 weeks with pain radiating into the buttocks. COMPARISON: Lumbar spine x-rays from 08/15/2023. TECHNIQUE: Multiplanar and multisequence imaging of the lumbar spine was performed without contrast. FINDINGS: No acute fracture or spondylolisthesis is evident. The lumbar vertebral body heights are maintained. There is mild disc height loss at L5-S1 with disc desiccation in the mid to lower lumbar spine. No acute abnormality is identified involving visualized intrapelvic or intra-abdominal structures. The visualized aorta is normal in diameter. The upper sacrum is intact. There appears to be a chronic left L5 pars defect and suspected subtle chronic right L5 pars defect. The conus terminates at the inferior aspect of T12. L5-S1: There is a 3 mm broad-based disc protrusion with a small annular tear. Mild facet arthropathy is evident. There is no central or foraminal stenosis. L4-L5: There is a diffuse disc bulge and mild to moderate facet arthropathy. There is no central or foraminal stenosis. L3-L4: A left foraminal and far lateral disc protrusion measures 5 mm in AP dimension with endplate spurring and moderate to severe left and moderate right-sided facet arthropathy. There is moderate left foraminal narrowing and likely abutment of the left L3 nerve root. No central stenosis is evident. L2-L3: There is a 3 mm left foraminal disc protrusion with a small annular tear resulting in mild left foraminal narrowing without central stenosis. L1-L2: No focal disc herniation is evident. There is no central or foraminal stenosis. MR/MR lumbar spine wo con IMPRESSION: 1. A left foraminal and far lateral disc protrusion at L3-L4 results in moderate left foraminal narrowing with abutment of the left L3 nerve root. 2. There is also a left foraminal disc protrusion at L2-L3 resulting in mild left foraminal narrowing. There is a small annular tear at L2-L3. 3. No acute fracture. There appear to be chronic bilateral L5 pars defects without clear spondylolisthesis. Electronically authenticated by: UCHE CRUZ Date: 07/23/2024 11:08
--- OUTSIDE RECORDS SUMMARY | 2024-07-22 08:28 | XMS_ITS | CCD ---
Author Organization [facility] Care Team Providers Care Assistant Front Office Manager Name Role Phone Kell Bowling MD [...] physicia Propensity to adverse reactions 9 Comment:Done Silistix Other (2 sources) Allergies Reconciled Propensity to adverse reactions Unknown Silistix Other Medications Current Medications Medication Drug Class(es) [...] oral daily for 90 *Pick strength-form from [facility] for eRX* Aug, Active Start: 02-05-2021 atenolol-chlor thalidone 50-25 MG tablet cyclobenzaprine hydrochloride 10 mg oral tablet (7 sources) Muscle Relaxant Start: 05-31-2022 take 1 tablet by mouth three times daily as needed cyclobenzaprine 10mg cyclobenzaprine 10mg, 1 (one) Tablet three times daily, as needed # 30, 05/31/2022, No Refill. Active oral three times daily, as needed for 0 *Reorder from [facility] for eRx and Interaction Alerts* 20 [...] Refill. Active transdermal for 0 *Reorder from [facility] for eRx and Interaction Alerts* May, Active [...] done by PCP. Follow up 07/31/24 Normal [facility] Albumin [Mass/volume] in Ser um or Plasmaon 12-26-2023 Albumin [Mass/Vol] 3.7 g/dL 2.9-4.4 [facility] Basophils Auto (Bld) [#/Vol] on 12-26-2023 Basophils (Bld) [#/Vol] 0.1 10 3/uL 0.0-0.1 [facility] Basophils/100 WBC Auto (Bld) on 12-26-2023 Basophils/100 WBC (Bld) 0.7 % 0.2-2.0 [facility] Eosinophils/100 WBC Auto (Bl d)on 12-26-2023 Eosinophils/100 WBC (Bld) 3.0 % 0.9-7.0 [facility] Erythrocyte distribution wid th Auto (RBC) [Ratio]on 12-26-2023 Erythrocyte distribution width (RBC) [Ratio] 21.4 % 11.0-15.0 [facility] Hematocrit Auto (Bld) [Volum e fraction]on 12-26-2023 Hematocrit (Bld) [Volume fraction] 47.9 % 42.0-54.0 [facility] Hemoglobin [Mass/volume] in Bloodon 12-26-2023 Hemoglobin (Bld) [Mass/Vol] 15.7 g/dL 14.0-18.0 [facility] IgA [Mass/volume] in Serum o r Plasmaon 12-26-2023 IgA [Mass/Vol] 232 mg/dL 90-386 [facility] IgG [Mass/volume] in Serum o r Plasmaon 12-26-2023 IgG [Mass/Vol] 1144 mg/dL 603-1613 [facility] IgM [Mass/volume] in Serum o r Plasmaon 12-26-2023 IgM [Mass/Vol] 79 mg/dL 20-172 [facility] [place] 12-26-2023 L Specimen: Received: 12/27/23 Status: KELSIE Blakejulisa Num: [id number] Spec Type: Impression Subm Dr: Margaux Estrada MD Tissues: PATHPER Procedures: PATHREVIEW Age/ Patient Sex Location Account Attending Physician Manuel Rosas 53/M LABELL [id number] Margaux Estrada MD SPEC NUM: RECD: 12/27/23 STATUS: KELSIE JOHNSON NUM: [id number] MAYRA: 12/26/[address]: Margaux Estrada MD ENTERED: 12/27/[address]: Chase Oropeza SPEC TYPE: Impression DEPT: KELSIE Jackson ENTERED BY: [id number] RECV BY: [id number] ORDERED: PATHREVIEW ORDERED: PATHREVIEW Pathologist Review Occasional atypical lymphocytes are noted. Atypical infection should be ruled out. ---- ---- Specimen: [id number] Received: 12/27/23-1351 Status: KELSIE Johnson Num: [id number] Spec Type: Impression Subm Dr: Margaux Estrada MD Tissues: PATHPER Procedures: PATHREVIEW ---- Patient: Manuel Rosas [id number] (Continued) ---- Signed (signature on file) Elroy Hutchins MD 12/27/23 1523 Normal [facility] - Chemistry and C hemistry - challengeon 12-26-2023 LDH [Catalytic activity/Vol] 211 U/L 85-227 [facility] Protein [Mass/Vol] 0.2 g/dL Not Observed [facility] - Hematology and Cell countson 12-26-2023 Immature granulocytes/100 WBC (Bld) 0.2 % 0.0-0.5 [facility] Leukocytes [#/volume] correc josé for nucleated erythrocytes in Blood by Automated counon 12-26-2023 WBC corrected for nucl RBC Auto (Bld) [#/Vol] 9.7 10 3/uL 4.0-11.0 [facility] Lymphocytes Auto (Bld) [#/Vo l]on 12-26-2023 Lymphocytes (Bld) [#/Vol] 3.5 10 3/uL 1.2-3.8 [facility] Lymphocytes/100 WBC Auto (Bl d)on 12-26-2023 Lymphocytes/100 WBC (Bld) 36.4 % 20.5-60.0 [facility] MCH Auto (RBC) [Entitic mass ]on 12-26-2023 MCH (RBC) [Entitic mass] 27.5 pg 25.9-34.0 [facility] MCHC Auto (RBC) [Mass/Vol]on 12-26-2023 MCHC (RBC) [Mass/Vol] 32.8 g/dL 29.9-35.2 [facility] MCV Auto (RBC) [Entitic vol] on 12-26-2023 MCV (RBC) [Entitic vol] 84.0 fL 80.0-94.0 [facility] Monocytes Auto (Bld) [#/Vol] on 12-26-2023 Monocytes (Bld) [#/Vol] 0.7 10 3/uL 0.3-0.8 [facility] Monocytes/100 WBC Auto (Bld) on 12-26-2023 Monocytes/100 WBC (Bld) 7.5 % 1.7-12.0 [facility] Neutrophils Auto (Bld) [#/Vo l]on 12-26-2023 Neutrophils (Bld) [#/Vol] 5.1 10 3/uL 1.4-6.5 [facility] Neutrophils/100 WBC Auto (Bl d)on 12-26-2023 Neutrophils/100 WBC (Bld) 52.2 % 43.0-75.0 [facility] No Panel Informationon 12-25 Eosinophils # (Auto) 0.3 10 3/uL 0.0-0.7 [facility] Immature Granulocyte # (Auto) 0.02 10 3/uL 0.00-0.03 [facility] Protein Electrophoresis Note Comment . [facility] Comment on above: Protein electrophore sis scan will follow via computer,mail, or master scheduler delivery.Performed at: [address] [id number] Director: Checo Pitts PhD, Phone: [phone] Platelet mean volume Auto (B ld) [Entitic vol]on 12-26-2023 Platelet mean volume (Bld) [Entitic vol] 10.0 fL 9.5-13.5 [facility] Platelets Auto (Bld) [#/Vol] on 12-26-2023 Platelets (Bld) [#/Vol] 269 10 3/uL 150-450 [facility] Protein [Mass/volume] in Ser um or Plasmaon 12-26-2023 Protein [Mass/Vol] 6.9 g/dL 6.0-8.5 [facility] RBC Auto (Bld) [#/Vol]on RBC (Bld) [#/Vol] 5.70 10 6/uL 4.70-6.10 [facility] Serum globulin measurement ( mass/volume)on 12-26-2023 Globulin (S) [Mass/Vol] 3.2 g/dL 2.2-3.9 [facility] Serum or plasma albumin/glob ulin mass ratioon 12-26-2023 Albumin/Globulin [Mass ratio] 1.2 {ratio} 0.7-1.7 [facility] Serum or plasma alpha 1 glob ulin measurement by electrophoresis (mass/volume)on 12-26-2023 Alpha 1 globulin Elph [Mass/Vol] 0.2 g/dL 0.0-0.4 [facility] Serum or plasma alpha 2 glob ulin measurement by electrophoresis (mass/volume)on 12-26-2023 Alpha 2 globulin Elph [Mass/Vol] 0.7 g/dL 0.4-1.0 [facility] Serum or plasma beta globuli n measurement by electrophoresis (mass/volume)on 12-26-2023 Beta globulin Elph [Mass/Vol] 1.5 g/dL 0.7-1.3 [facility] Serum or plasma gamma globul in measurement by electrophoresis (mass/volume)on 12-26-2023 Gamma globulin Elph [Mass/Vol] 0.9 g/dL 0.4-1.8 [facility] Serum or plasma immunoelectr ophoresis interpretationon 12-26-2023 Interpretation IEP [Interp] Comment . [facility] Comment on above: Immunofixation shows IgG monoclonal protein with lambdalight chain specificity. Basophils Auto (Bld) [#/Vol] on 12-19-2023 Basophils (Bld) [#/Vol] 0.1 10 3/uL 0.0-0.1 [facility] Basophils/100 WBC Auto (Bld) on 12-19-2023 Basophils/100 WBC (Bld) 1.1 % 0.2-2.0 [facility] Eosinophils/100 WBC Auto (Bl d)on 12-19-2023 Eosinophils/100 WBC (Bld) 3.3 % 0.9-7.0 [facility] Erythrocyte distribution wid th Auto (RBC) [Ratio]on 12-19-2023 Erythrocyte distribution width (RBC) [Ratio] 21.6 % 11.0-15.0 [facility] Hematocrit Auto (Bld) [Volum e fraction]on 12-19-2023 Hematocrit (Bld) [Volume fraction] 45.7 % 42.0-54.0 [facility] Hemoglobin [Mass/volume] in Bloodon 12-19-2023 Hemoglobin (Bld) [Mass/Vol] 14.9 g/dL 14.0-18.0 [facility] Iron binding capacity [Mass/ volume] in Serum or Plasmaon 12-19-2023 Iron binding capacity [Mass/Vol] 370.0 ug/dL 250.0-450.0 [facility] Iron saturation [Mass Fracti on] in Serum or Plasmaon 12-19-2023 Iron saturation [Mass fraction] 37.6 % [facility] Laboratory - Chemistry and C hemistry - challengeon 12-19-2023 Ferritin [Mass/Vol] 31.0 ng/mL 26.0-388.0 [facility] Iron [Mass/Vol] 139.0 ug/dL 65.0-175.0 [facility] Laboratory - Hematology and Cell countson 12-19-2023 Immature granulocytes/100 WBC (Bld) 0.5 % 0.0-0.5 [facility] Leukocytes [#/volume] correc josé for nucleated erythrocytes in Blood by Automated counon 12-19-2023 WBC corrected for nucl RBC Auto (Bld) [#/Vol] 9.4 10 3/uL 4.0-11.0 [facility] Lymphocytes Auto (Bld) [#/Vo l]on 12-19-2023 Lymphocytes (Bld) [#/Vol] 3.3 10 3/uL 1.2-3.8 [facility] Lymphocytes/100 WBC Auto (Bl d)on 12-19-2023 Lymphocytes/100 WBC (Bld) 34.5 % 20.5-60.0 [facility] MCH Auto (RBC) [Entitic mass ]on 12-19-2023 MCH (RBC) [Entitic mass] 26.8 pg 25.9-34.0 [facility] MCHC Auto (RBC) [Mass/Vol]on 12-19-2023 MCHC (RBC) [Mass/Vol] 32.6 g/dL 29.9-35.2 [facility] MCV Auto (RBC) [Entitic vol] on 12-19-2023 MCV (RBC) [Entitic vol] 82.2 fL 80.0-94.0 [facility] Monocytes Auto (Bld) [#/Vol] on 12-19-2023 Monocytes (Bld) [#/Vol] 0.9 10 3/uL 0.3-0.8 [facility] Monocytes/100 WBC Auto (Bld) on 12-19-2023 Monocytes/100 WBC (Bld) 9.2 % 1.7-12.0 [facility] Neutrophils Auto (Bld) [#/Vo l]on 12-19-2023 Neutrophils (Bld) [#/Vol] 4.9 10 3/uL 1.4-6.5 [facility] Neutrophils/100 WBC Auto (Bl d)on 12-19-2023 Neutrophils/100 WBC (Bld) 51.4 % 43.0-75.0 [facility] No Panel Informationon 12-18 Eosinophils # (Auto) 0.3 10 3/uL 0.0-0.7 [facility] Immature Granulocyte # (Auto) 0.05 10 3/uL 0.00-0.03 [facility] Miscellaneous Test COMMENT . [facility] Comment on above: Test Ordered: [id number] Hgb Fractionation CascadeHgb F 0.0 % CB Reference Range: 0.0-2.0Hgb A 97.8 % CB Reference Range: 96.4-98.8Hgb A2 2.2 % CB Reference Range: 1.8-3.2Hgb S 0.0 % CB Reference Range: 0.0Interpretation: Comment CB Reference Range: .Normal hemoglobin present; no hemoglobin variant or betathalassemia identified.Note: Alpha thalassemia may not be detected by the HgbFractionation [place] panel. If alpha thalassemia issuspected, [facility] offers Alpha-Thalassemia DNA Analysis(#[id number]).Performed at: [address] [id number] Director: Checo Pitts PhD, Phone: [phone] Platelet mean volume Auto (B ld) [Entitic vol]on 12-19-2023 Platelet mean volume (Bld) [Entitic vol] 9.4 fL 9.5-13.5 [facility] Platelets Auto (Bld) [#/Vol] on 12-19-2023 Platelets (Bld) [#/Vol] 299 10 3/uL 150-450 [facility] RBC Auto (Bld) [#/Vol]on RBC (Bld) [#/Vol] 5.56 10 6/uL 4.70-6.10 [facility] Basophils Auto (Bld) [#/Vol] on 11-08-2023 Basophils (Bld) [#/Vol] 0.1 10 3/uL 0.0-0.1 [facility] Basophils/100 WBC Auto (Bld) on 11-08-2023 Basophils/100 WBC (Bld) 0.9 % 0.2-2.0 [facility] Eosinophils/100 WBC Auto (Bl d)on 11-08-2023 Eosinophils/100 WBC (Bld) 3.2 % 0.9-7.0 [facility] Erythrocyte distribution wid th Auto (RBC) [Ratio]on 11-08-2023 Erythrocyte distribution width (RBC) [Ratio] 17.4 % 11.0-15.0 [facility] Hematocrit Auto (Bld) [Volum e fraction]on 11-08-2023 Hematocrit (Bld) [Volume fraction] 43.5 % 42.0-54.0 [facility] Hemoglobin [Mass/volume] in Bloodon 11-08-2023 Hemoglobin (Bld) [Mass/Vol] 13.2 g/dL 14.0-18.0 [facility] Laboratory - Chemistry and C hemistry - challengeon 11-08-2023 Cobalamin (Vitamin B12) [Mass/Vol] 986.0 pg/mL 193.0-986.0 [facility] Ferritin [Mass/Vol] 14.0 ng/mL 26.0-388.0 [facility] Laboratory - Hematology and Cell countson 11-08-2023 Immature granulocytes/100 WBC (Bld) 0.2 % 0.0-0.5 [facility] Leukocytes [#/volume] correc josé for nucleated erythrocytes in Blood by Automated counon 11-08-2023 WBC corrected for nucl RBC Auto (Bld) [#/Vol] 10.0 10 3/uL 4.0-11.0 [facility] Lymphocytes Auto (Bld) [#/Vo l]on 11-08-2023 Lymphocytes (Bld) [#/Vol] 3.6 10 3/uL 1.2-3.8 [facility] Lymphocytes/100 WBC Auto (Bl d)on 11-08-2023 Lymphocytes/100 WBC (Bld) 35.5 % 20.5-60.0 [facility] MCH Auto (RBC) [Entitic mass ]on 11-08-2023 MCH (RBC) [Entitic mass] 23.9 pg 25.9-34.0 [facility] MCHC Auto (RBC) [Mass/Vol]on 11-08-2023 MCHC (RBC) [Mass/Vol] 30.3 g/dL 29.9-35.[address] [facility] MCV Auto (RBC) [Entitic vol] on 11-08-2023 MCV (RBC) [Entitic vol] 78.7 fL 80.0-94.0 [facility] Monocytes Auto (Bld) [#/Vol] on 11-08-2023 Monocytes (Bld) [#/Vol] 0.9 10 3/uL 0.3-0.8 [facility] Monocytes/100 WBC Auto (Bld) on 11-08-2023 Monocytes/100 WBC (Bld) 8.5 % 1.7-12.0 [facility] Neutrophils Auto (Bld) [#/Vo l]on 11-08-2023 Neutrophils (Bld) [#/Vol] 5.2 10 3/uL 1.4-6.5 [facility] Neutrophils/100 WBC Auto (Bl d)on 11-08-2023 Neutrophils/100 WBC (Bld) 51.7 % 43.0-75.0 [facility] No Panel Informationon 11-08 Eosinophils # (Auto) 0.3 10 3/uL 0.0-0.7 [facility] Folate 19.60 ng/mL 8.60-58.90 [facility] Immature Granulocyte # (Auto) 0.02 10 3/uL 0.00-0.03 [facility] Platelet mean volume Auto (B ld) [Entitic vol]on 11-08-2023 Platelet mean volume (Bld) [Entitic vol] 9.4 fL 9.5-13.5 [facility] Platelets Auto (Bld) [#/Vol] on 11-08-2023 Platelets (Bld) [#/Vol] 384 10 3/uL 150-450 [facility] RBC Auto (Bld) [#/Vol]on RBC (Bld) [#/Vol] 5.53 10 6/uL 4.70-6.10 [facility] Pre-Certification Formon Pre-Certification Form [id number]#1.0 0TIFF Normal [facility] Ambulatory Visit Summaryon 1 09-25-2022 Amb[facility] Visit [...] [facility]2023 Lab Reports [id number]#1.00 TIFF [facility] Lab Reports [id number]#1. 00TIFF [facility] Medication Consenton 023 Medication Consent [id number]#1. 00TIFF [facility] Patient Educationon 07-26-20 23 Patient Education [...] Follow these instructions at home: ? Take bdto-hff-meskrri and prescription medicines only as told by [...] the medicine (more content not included)... Normal [facility] Screenson 07-26-2023 Screens [id number]#1. 00TIFF Normal [facility] Screens [id number]#1. 00TIFF [facility] Urology Office/Clinic Noteon 07-26-2023 Urology Office/Clinic Note Chief Complaint 6m Testosterone Level HPI Staff 6m Testosterone Level DX: Hypogonadism, Impotence & BPH *Cialis 10mg PRN (occasionally uses 20mg) & Androgel 2 pumps qd PSA 07/05/23- 0.78 CBC/CMP 10/25/23 *BUN 21.0 & Crea 1.48 eGFR 50 *Hgb 12.3 & Hct 38.9 A1C 07/05/23- 5.8 Testosterone 07/20/23- ([phone]) Pt has no concerns at this time. [...] 324 07/19/21 - 754 07/20/23 - 366 (942-216) Hgb 12.3 & Hct 38.9 Reviewed labs [...] BNT-162b2 vax (more content not included)... Normal [facility] Comment on above: Result Comment: Elec tronically Signed By: Chata Page MD\.br\Date and Time Signed: 07/26/23 08:57 EST\.br\Electronically Co-Signed By: Meme Haley\.br\Date and Time Co-Signed: 07/26/23 08:37 EST Lab Reportson 07-23-2023 Lab Reports [id number]#1.0 0TIFF Normal [facility] TESTOSTERONE, TOTALon 2022 Testosterone [Mass/Vol] 487 ng/dL Normal 264-916 [facility] Comment on above: Result Comment: Adul t male reference interval is based on a population of healthy nonobese males (BMI <30) between 19 and 39 years old. Joni, et.al. JCEM 2017,102;2284-4984. PMID: 62940714. Performed By: #### T ESTTOT #### [facility] [address] [place] [address] Dr. Mychal Oropeza US SINGLE QUAD RT [...] by: CHRISTOFER SCHAEFFER Date: 2022-08-25 07:07 Normal [facility] TESTOSTERONE, TOTALon 2021 Testosterone [Mass/Vol] 410 ng/dL Normal 264-916 [facility] Comment on above: Result Comment: Adul t male reference interval is based on a population of healthy nonobese males (BMI <30) between 19 and 39 years old. Joni et.al. JCEM 2017,102;6606-5655. PMID: 43176856. Performed By: #### T ESTTOT #### [facility] [address] [place] [address] Dr. Mychal Oropeza CBC AUTO DIFFon 05-27-2022 BASO # 0.1 103/ul Normal 0.0-0.1 [facility] Comment on above: Performed By: #### C BC #### [facility] [address] [address] [address] Mychal Oropeza Basophils/100 WBC (Bld) 0.9 % Normal 0.2-2.0 [facility] Comment on above: Performed By: #### C BC #### [facility] [address] [address] [address] Mychal Oropeza EO # 0.7 103/ul Normal 0.0-0.7 [facility] Comment on above: Performed By: #### C BC #### [facility] [address] [address] [address] Mychal Oropeza Eosinophils/100 WBC (Bld) 6.7 % Normal 0.9-7.0 [facility] Comment on above: Performed By: #### C BC #### [facility] [address] [place] [address] Dr. Mychal Oropeza Erythrocyte distribution width (RBC) [Ratio] 12.8 % Normal 11.0-15.0 [facility] Comment on above: Performed By: #### C BC #### [facility] [address] [place] [address] Dr. Mychal Oropeza Hematocrit (Bld) [Volume fraction] 46.9 % Normal 42.0-54.0 [facility] Comment on above: Performed By: #### C BC #### [facility] [address] [place] [address] Dr. Mychal Oropeza Hemoglobin (Bld) [Mass/Vol] 16.2 g/dL Normal 14.0-18.0 [facility] Comment on above: Performed By: #### C BC #### [facility] [address] [place] [address] Dr. Mychal Oropeza IG # 0.04 10e3/ul Critically high 0.00-0.03 [facility] Comment on above: Performed By: #### C BC #### [facility] [address] [place] [address] Dr. Mychal Oropeza IG % 0.4 % Normal 0.0-0.5 [facility] Comment on above: Performed By: #### C BC #### [facility] [address] [place] [address] Dr. Mychal Oropeza LYMPH # 4.1 103/ul Critically high 1.2-3.8 [facility] Comment on above: Performed By: #### C BC #### [facility] [address] [place] [address] Dr. Mychal Oropeza Lymphocytes/100 WBC (Bld) 37.7 % Normal 20.5-60.0 [facility] Comment on above: Performed By: #### C BC #### [facility] [address] [place] [address] Dr. Mychal Oropeza MANUAL DIFF REQ NO Normal [facility] Comment on above: Performed By: #### C BC #### [facility] [address] [place] [address] Dr. Mychal Oropeza MCH (RBC) [Entitic mass] 30.7 pg Normal 25.9-34.0 [facility] Comment on above: Performed By: #### C BC #### [facility] [address] [place] [address] Dr. Mychal Oropeza MCHC (RBC) [Mass/Vol] 34.5 g/dL Normal 29.9-35.2 [facility] Comment on above: Performed By: #### C BC #### [facility] [address] [place] [address] Dr. Mychal Oropeza MCV (RBC) [Entitic vol] 88.8 fL Normal 80.0-94.0 [facility] Comment on above: Performed By: #### C BC #### [facility] [address] [place] [address] Dr. Mychal Oropeza MONO # 0.9 103/ul Critically high 0.3-0.8 [facility] Comment on above: Performed By: #### C BC #### [facility] [address] [place] [address] Dr. Mychal Oropeza Monocytes/100 WBC (Bld) 8.1 % Normal 1.7-12.0 [facility] Comment on above: Performed By: #### C BC #### [facility] [address] [place] [address] Dr. Mychal Oropeza NEUT # 5.1 103/ul Normal 1.4-6.5 [facility] Comment on above: Performed By: #### C BC #### [facility] [address] [place] [address] Dr. Mychal Oropeza Neutrophils/100 WBC (Bld) 46.2 % Normal 43.0-75.0 [facility] Comment on above: Performed By: #### C BC #### [facility] [address] [place] [address] Dr. Mychal Oropeza Platelet mean volume (Bld) [Entitic vol] 9.7 fL Normal 9.5-13.5 [facility] Comment on above: Performed By: #### C BC #### [facility] [address] [place] [address] Dr. Mychal Oropeza PLT 308 103/ul Normal 150-450 [facility] Comment on above: Performed By: #### C BC #### [facility] [address] [address] [address] Mychal Oropeza RBC 5.28 106/ul Normal 4.70-6.10 [facility] Comment on above: Performed By: #### C BC #### [facility] [address] [address] [address] Mychal Oropeza WBC 10.9 103/ul Normal 4.0-11.0 [facility] Comment on above: Performed By: #### C BC #### [facility] [address] [place] [address] Dr. Mychal Oropeza GLYCOHEMOGLOBIN A1Con 2021 ADA RECOMMENDATION SEE BELOW Normal [facility] Comment on above: Result Comment: ADA RECOMMENDED LIMIT 4.0 - 6.0 ADA THERAPEUTIC TARGET < 7.0 ACTION SUGGESTED > 7.0 Performed By: #### A 1C #### [facility] [address] [place] [address] Dr. Mychal Oropeza Glucose [Mass/Vol] 108 mg/dL Normal [facility] Comment on above: Performed By: #### A 1C #### [facility] [address] [place] [address] Dr. Mychal Oropeza HbA1c (Bld) [Mass fraction] 5.4 % Normal 4.5-6.2 [facility] Comment on above: Performed By: #### A 1C #### [facility] [address] [place] [address] Dr. Mychal Oropeza LIPID PROFILEon 05-27-2022 CHOL-HDL RATIO NORM SEE BELOW Normal [facility] Comment on above: Result Comment: 3.3 - 4.4 LOW RISK 4.4 - 7.1 AVERAGE RISK 7.1 - 11.0 MODERATE RISK >11.0 HIGH RISK Performed By: #### T SH, LIPID, CMP #### [facility] [address] [place] [address] Dr. Mychal Oropeza Cholesterol [Mass/Vol] 207 mg/dL Critically high <=200 [facility] Comment on above: Performed By: #### T SH, LIPID, CMP #### [facility] [address] [address] [address] Mychal Oropeza Cholesterol in HDL [Mass/Vol] 47 mg/dL Normal 40-60 [facility] Comment on above: Performed By: #### T SH, LIPID, CMP #### [facility] [address] [address] [address] Mychal Oropeza Cholesterol in LDL [Mass/Vol] 122.4 mg/dL Normal [facility] Comment on above: Performed By: #### T SH, LIPID, CMP #### [facility] [address] [address] [address] Mychal Oropeza Cholesterol.total/Choles terol in HDL [Mass ratio] 4.4 {ratio} Normal [facility] Comment on above: Performed By: #### T SH, LIPID, CMP #### [facility] [address] [address] [address] Mychal Oropeza HDL NORMAL > or = 60 mg/dl - LO W CARDIOVASCULAR RISK <40 mg/dl - HIGH CARDIOVASCULAR RISK Normal [facility] Comment on above: Performed By: #### T SH, LIPID, CMP #### [facility] [address] [place] [address] Dr. Mychal Oropeza LDL CALC NORMAL SEE BELOW Normal [facility] Comment on above: Result Comment: <100 mg/dl OPTIMAL 100 - 129 mg/dl NEAR OR ABOVE OPTIMAL 130 - 159 mg/dl BORDERLINE HIGH 160 - 189 mg/dl HIGH >190 mg/dl VERY HIGH Performed By: #### T SH, LIPID, CMP #### [facility] [address] [address] [address] Mychal Oropeza Triglyceride [Mass/Vol] 188 mg/dL Critically high <=150 [facility] Comment on above: Performed By: #### T SH, LIPID, CMP #### [facility] [address] [address] [address] Mychal Oropeza VLDL CALC 37.6 mg/dL Normal [facility] Comment on above: Performed By: #### T SH, LIPID, CMP #### [facility] [address] [address] [address] Mychal Oropeza PROF 14(COMP METB)on 022 Albumin [Mass/Vol] 3.9 g/dL Normal 3.4-5.0 [facility] Comment on above: Performed By: #### T SH, LIPID, CMP #### [facility] [address] [address] [address] Mychal Oropeza Albumin/Globulin [Mass ratio] 1.1 {ratio} Normal [facility] Comment on above: Performed By: #### T SH, LIPID, CMP #### [facility] [address] [address] [address] Mychal Oropeza ALP [Catalytic activity/Vol] 77 U/L Normal 46-116 [facility] Comment on above: Performed By: #### T SH, LIPID, CMP #### [facility] [address] [address] [address] Mychal Oropeza ALT [Catalytic activity/Vol] 56 U/L Normal 16-63 [facility] Comment on above: Performed By: #### T SH, LIPID, CMP #### [facility] [address] [address] [address] Mychal Oropeza Anion gap [Moles/Vol] 8.6 mmol/L Normal [facility] Comment on above: Performed By: #### T SH, LIPID, CMP #### [facility] [address] [address] [address] Mychal Oropeza AST [Catalytic activity/Vol] 30 U/L Normal 15-37 [facility] Comment on above: Performed By: #### T SH, LIPID, CMP #### [facility] [address] [address] [address] Mychal Oropeza Bilirubin [Mass/Vol] 0.6 mg/dL Normal 0.2-1.0 [facility] Comment on above: Performed By: #### T SH, LIPID, CMP #### [facility] [address] [address] [address] Mychal Oropeza Calcium [Mass/Vol] 9.2 mg/dL Normal 8.5-10.1 [facility] Comment on above: Performed By: #### T SH, LIPID, CMP #### [facility] [address] [address] [address] Mychal Oropeza Chloride [Moles/Vol] 100 mmol/L Normal 98-107 [facility] Comment on above: Performed By: #### T SH, LIPID, CMP #### [facility] [address] [place] [address] Dr. Mychal Oropeza CO2 [Moles/Vol] 30.0 mmol/L Normal 21.0-32.0 [facility] Comment on above: Performed By: #### T SH, LIPID, CMP #### [facility] [address] [place] [address] Dr. Mychal Oropeza Creatinine [Mass/Vol] 1.37 mg/dL Critically high 0.70-1.30 [facility] Comment on above: Performed By: #### T SH, LIPID, CMP #### [facility] [address] [place] [address] Dr. Mychal Oropeza EGFR-AF [place] >60 Normal >=60 [facility] Comment on above: Performed By: #### T SH, LIPID, CMP #### [facility] [address] [place] [address] Dr. Mychal Oropeza EGFR-NON AF [place] 55 mL/min/1.73m2 Critically low >=60 [facility] Comment on above: Performed By: #### T SH, LIPID, CMP #### [facility] [address] [place] [address] Dr. Mychal Oropeza Globulin (S) [Mass/Vol] 3.7 g/dL Normal [facility] Comment on above: Performed By: #### T SH, LIPID, CMP #### [facility] [address] [place] [address] Dr. Mychal Oropeza Glucose [Mass/Vol] 111 mg/dL Critically high 74-106 [facility] Comment on above: Performed By: #### T SH, LIPID, CMP #### [facility] [address] [place] [address] Dr. Mychal Oropeza Potassium [Moles/Vol] 3.6 mmol/L Normal 3.5-5.1 [facility] Comment on above: Performed By: #### T SH, LIPID, CMP #### [facility] [address] [place] [address] Dr. Mychal Oropeza Protein [Mass/Vol] 7.6 g/dL Normal 6.4-8.2 [facility] Comment on above: Performed By: #### T SH, LIPID, CMP #### [facility] [address] [address] [address] Mychal Oropeza Sodium [Moles/Vol] 135 mmol/L Critically low 136-145 Th [facility] Comment on above: Performed By: #### T SH, LIPID, CMP #### [facility] [address] [place] [address] Dr. Mychal Oropeza Urea nitrogen [Mass/Vol] 14.0 mg/dL Normal 7.0-18.0 [facility] Comment on above: Performed By: #### T SH, LIPID, CMP #### [facility] [address] [place] [address] Dr. Mychal Oropeza Urea nitrogen/Creatinine [Mass ratio] 10.2 mg/mg Normal [facility] Comment on above: Performed By: #### T SH, LIPID, CMP #### [facility] [address] [place] [address] Dr. Mychal Oropeza TSHon 05-27-2022 TSH 2.907 uIU/mL Normal 0.358-3.740 [facility] Comment on above: Performed By: #### T SH, LIPID, CMP #### [facility] [address] [place] [address] Dr. Mychal Oropeza TESTOSTERONE, TOTALon 2021 Testosterone [Mass/Vol] 324 ng/dL Normal 264-916 [facility] Comment on above: Result Comment: Adul t male reference interval is based on a population of healthy nonobese males (BMI <30) between 19 and 39 years old. bouchra Quinones.al. JCEM 2017,102;1036-1327. PMID: [id number]. Performed By: #### T ESTTOT #### [facility] [address] [address] [address] Mychal Oropeza XR SPINE CERVICAL WITH [...] fair flexion. No instability is noted. Normal [facility] XR SPINE LUMBAR W BENDINGon 02-10-2021 [...] good range of motion without instability. Normal [facility] XR SPINE LUMBAR W BENDINGOrd ered By: Maik Barbosa on 02-10-2021 IMPRESSION: Lumbar spine visually is fairly well preserved. There is no evidence of fracture, listhesis, significant disc space narrowing or major degenerative changes. There is a very good range of motion without instability. [facility]: XR SPINE LUMBA R W [...] motion. There is no listhesis or instability. [facility] User, Interfaces - 02/10/2021 4:52 PM [...] very good range of motion without instability. [facility] Vital Signs Date Time Vital Sign Value Performing Clinician Facility 08-31-2023 15:30-0500 Body height 170.18 cm Kell Bowling Other [facility] Other 08-31-2023 15:30-0500 Body mass index (BMI) [Ratio] 33.04 kg/m2 Kell Bowling Other [facility] Other 08-31-2023 15:30-0500 Body weight 95.71 kg Kell Bowling Other [facility] Other 08-31-2023 15:30-0500 Diastolic blood pressure 77 mm[Hg] Kell Bowling Other [facility] Other 08-31-2023 15:30-0500 Systolic blood pressure 119 mm[Hg] Kell Bowling Other [facility] Other 08-01-2023 08:30-0500 Body height 170.18 cm Kell Bowling Other [facility] Other 08-01-2023 08:30-0500 Body mass index (BMI) [Ratio] 35.14 kg/m2 Kell Bowling Other [facility] Other 08-01-2023 08:30-0500 Body weight 101.79 kg Kell Bowling Other [facility] Other 08-01-2023 08:30-0500 Diastolic blood pressure 82 mm[Hg] Kell Bowling Other [facility] Other 08-01-2023 08:30-0500 Systolic blood pressure 118 mm[Hg] Kell Bowling Other [facility] Other 04-16-2021 12:05-0400 Diastolic blood pressure 97 mm[Hg] Maik Barbosa MD Work Phone: [facility] 04-16-2021 12:05-0400 Heart rate 54 /min Maik Barbosa MD Work Phone: [facility] 04-16-2021 12:05-0400 Respiratory rate 16 /min Maik Barbosa MD Work Phone: [facility] 04-16-2021 12:05-0400 SaO2% (BldA) [Mass fraction] 95 % Maik Barbosa MD Work Phone: [facility] 04-16-2021 12:05-0400 Systolic blood pressure 142 mm[Hg] Maik Barbosa MD Work Phone: [facility] 03-17-2021 08:04-0400 Body height 170.2 cm Maik Barbosa MD Work Phone: [facility] 03-17-2021 08:04-0400 Body mass index (BMI) [Ratio] 34.61 kg/m2 Maik Barbosa MD Work Phone: [facility] 03-17-2021 08:04-0400 Body weight 100.25 kg Maik Barbosa MD Work Phone: [facility] 03-17-2021 08:04-0400 Diastolic blood pressure 93 mm[Hg] Maik Barbosa MD Work Phone: [facility] 03-17-2021 08:04-0400 Heart rate 74 /min Maik Barbosa MD Work Phone: [facility] 03-17-2021 08:04-0400 Respiratory rate 20 /min Maik Barbosa MD Work Phone: [facility] 03-17-2021 08:04-0400 SaO2% (BldA) [Mass fraction] 96 % Maik Barbosa MD Work Phone: [facility] 03-17-2021 08:04-0400 Systolic blood pressure 132 mm[Hg] Maik Barbosa MD Work Phone: [facility] 02-24-2021 12:02-0400 Diastolic blood pressure 100 mm[Hg] Maik Barbosa MD Work Phone: [facility] 02-24-2021 12:02-0400 Heart rate 55 /min Maik Barbosa MD Work Phone: [facility] 02-24-2021 12:02-0400 Respiratory rate 18 /min Maik Barbosa MD Work Phone: [facility] 02-24-2021 12:02-0400 SaO2% (BldA) [Mass fraction] 95 % Maik Barbosa MD Work Phone: [facility] 02-24-2021 12:02-0400 Systolic blood pressure 141 mm[Hg] Maik Barbosa MD Work Phone: [facility] 02-10-2021 11:46-0400 Body height 170.2 cm Maik Barbosa MD Work Phone: [facility] 02-10-2021 11:46-0400 Body mass index (BMI) [Ratio] 34.61 kg/m2 Maik Barbosa MD Work Phone: [facility] 02-10-2021 11:46-0400 Body weight 100.25 kg Maik Barbosa MD Work Phone: [facility] 02-10-2021 11:46-0400 Diastolic blood pressure 81 mm[Hg] Maik Barbosa MD Work Phone: [facility] 02-10-2021 11:46-0400 Heart rate 64 /min Maik Barbosa MD Work Phone: [facility] 02-10-2021 11:46-0400 Respiratory rate 18 /min Maik Barbosa MD Work Phone: [facility] 02-10-2021 11:46-0400 SaO2% (BldA) [Mass fraction] 99 % Maik Barbosa MD Work Phone: [facility] 02-10-2021 11:46-0400 Systolic blood pressure 121 mm[Hg] Maik Barbosa MD Work Phone: [facility] Encounters Encounter Date Encounter Type Care Provider Facility Start: 07-31-2024 ambulatory Chata Page Facility:[facility] Start: 05-15-2024 End: 05-15-2024 ambulatory BLAS GALVAN Not Available Start: 02-21-2024 End: 02-21-2024 ambulatory MINA PINEDO Not Available Start: 12-26-2023 End: 12-26-2023 ambulatory Kell Bowling Facility:[facility] Start: 12-26-2023 Non-patient / Non-visit [facility] Work Phone: Start: 12-19-2023 Non-patient / Non-visit [facility] Work Phone: Start: 11-20-2023 Non-patient / Non-visit [facility] Work Phone: Start: 11-13-2023 End: 11-14-2023 ambulatory Luis Fairchild MD Facility: [place] Start: 11-08-2023 Non-patient / Non-visit [facility] Work Phone: Start: 10-02-2023 End: 10-02-2023 Patient encounter procedure [facility] Start: 08-31-2023 End: 08-31-2023 ambulatory Kell Bowling Other [facility] Other Start: 08-31-2023 Office outpatient vi sit 15 minutes Kell Bowling [facility] Start: 08-01-2023 End: 08-01-2023 ambulatory Kell Bowling Other [facility] Other Start: 08-01-2023 Encounter for genera l adult medical examination without abnormal findings Kell Bowling [facility] Start: 08-01-2023 Periodic preventive med est patient 40-64yrs Kell Bowling [facility] Start: 07-26-2023 End: 07-26-2023 ambulatory Chata [...] examination without abnormal findings DR KELL BOWLING [facility] Start: 05-27-2022 End: 05-28-[address] KELL BOWLING Facility:[facility] Start: 05-27-2022 End: 05-28-2022 Encounter for general adult medical examination without abnormal findings DR KELL BOWLING Facility:[facility] Start: 01-19-2022 End: 01-20-[address] KELL BOWLING Facility:[facility] Start: 04-16-2021 End: 04-16-2021 Patient encounter procedure Maik Barbosa MD Work Phone: [facility] Proced[facility] Management Comment on above: Lumbar spondylosis ( Primary Dx); Chronic pain syndrome; Myofascial pain Start: 03-17-2021 End: 03-17-2021 Office outpatient visit 15 minutes Maik Barbosa MD Work Phone: [facility] Comment on above: Lumbar spondylosis ( Primary Dx); Lumbar radiculopathy; Spinal stenosis of cervical region; Chronic pain syndrome; Myofascial pain Start: 02-24-2021 End: 02-24-2021 Clinical Support Encounter [facility] Barbosa MD [facility] Comment on above: Myofascial pain (Ara reji Dx) Start: 02-10-2021 End: 02-10-2021 Subsequent hospital visit by physician Maik Barbosa MD Work Phone: [facility] Comment on above: Arrived Start: 02-10-2021 End: 02-10-2021 Office outpatient new 45 minutes Maik Barbosa MD Work Phone: [facility] Comment on above: Myofascial pain (Ara reji Dx); Arthropathy of cervical facet joint; Spondylosis of lumbar region without myelopathy or radiculopathy; Chronic pain syndrome; Compliance with medication regimen Procedures Date Procedure Procedure Detail Performing Clinician Start: 05-27-[address] KELL BOWLING Comment on above: Performed By: #### P [facility] #### [facility] [address] [address] [address] Mychal Oropeza Start: 02-10-2021 Radex spine lumbscrl compl w/bending views min 6 Maik Barbosa MD Work Phone: Plan of Treatment Date Care Activity Detail Author Start: 05-21-2021 End: 05-21-2021 Patient encounter procedure 05/21/2021 Office Visit Anesthesiology Pain Mgt Maik Barbosa MD [address] [place] [address] [facility] Start: 05-12-2021 Influenza vaccination [facility] Start: 05-07-2021 End: 05-07-2021 Patient encounter procedure 05/07/2021 Office Visit Anesthesiology Pain Mgt Maik Barbosa MD [address] [place] [address] [facility] Start: 05-03-2021 End: 05-03-2021 Patient encounter procedure 05/03/2021 Office Visit Anesthesiology Pain MgMaik Kinney MD [address] [place] [address] [phone] [facility] Start: 04-27-2021 End: 04-27-2021 Patient encounter procedure 04/27/2021 Office Visit Anesthesiology Pain MgMaik Kinney MD [address] [place] [address] [facility] Start: 03-17-2021 End: 03-17-2021 Patient encounter procedure 03/17/2021 Office Visit Anesthesiology Pain MgMaik Kinney MD [address] [place] [address] [phone] [facility] Start: 02-24-2021 End: 02-24-2021 Patient encounter procedure 02/24/2021 Office Visit Anesthesiology Pain Mgt Maik Barbosa MD [address] [place] [address] [phone] [facility] Start: 02-10-2021 End: 02-11-2021 DRUG SCREEN MED COMPLIANCE I DRUG SCREEN MED COMPLIANCE I Lab Routine Compliance with medication regimen Expected: 02/10/2021, Expires: 02/11/2021 [facility] Comment on above: Expected: 02/10/2021 , Expires: 02/11/2021 Start: 02-08-2020 Prostate specific antigen measurement PROSTATE CANCER SCREENING DISCUSSION [facility] Start: 02-08-2020 Zoster vaccine hzv l wilmar for subcutaneous use ZOSTER (SHINGLES) VACCINE (1 of 2) [facility] Start: 2015 Colonoscopy COLORECTAL CAN CER SCREENING DISCUSSION [facility] Start: 2010 Fasting lipid profile LIPID SCREENIN G [facility] Start: 1989 Third diphtheria, tetanus and acellular pertussis (DTaP) vaccination TDAP (ADULT) [facility] Start: 02-08-1988 Tetanus vaccination TETANUS [facility] Start: 1985 HIV screening HIV SCREENING DISCUSSI ON [facility] Start: 1982 COVID-19 VACCINE (1) COVID-19 VACCIN E (1) [facility] Start: 1970 Hepatitis C antibody , confirmatory test HEPATITIS C VIRUS SCREENING [facility] Payers Date Payer Category Payer Self-pay 2023 Unknown 2023 Unknown [id number] 2022 Unknown [id number] 2019 Unknown [id number] 2018 Unknown [id number] 1. [id number] 1970 Unknown [id number] 2.16.84 [id number] 1970 Unknown [id number] 2.16.84 0.1.962358.3.579.2.593 1970 Unknown [id number] 2.16.84 0.1.659477.3.579.2.593 1970 Unknown [id number] 2.16.84 0.1.284086.3.579.2.593 1970 Unknown [id number] 2.16.84 0.1.325035.3.579.2.593 1970 Unknown [id number] 2.16.84 0.1.924798.3.579.2.593 1970 Unknown [id number] 2.16.84 0.1.717092.3.579.2.593 1970 Unknown [id number] 2.16.84 0.1.124597.3.579.2.593 1970 Unknown [id number] 2.16. 840.1.183088.3.579.2.196 1970 Unknown [id number] 2.16.84 0.1.018149.3.579.2.1259 1970 Unknown [id number] 2.16.84 0.1.618801.3.579.2.1259 1970 Unknown [id number] 2.16.8 40.1.758405.3.579.2.727 1970 Unknown [id number] 2.16.8 40.1.833425.3.579.2.727 1959 Self-pay [id number] Unknown [id number] 2.16.84 [id number] Unknown [id number] 2.16.8 40.1.030079.3.579.2.531 Social History Date Type Detail Facility Start: 02-10-2021 End: 03-17-2021 Tobacco smoking status IDIS Never smoker [facility] Start: 02-10-2021 End: 03-17-2021 Tobacco use and exposure Never used [facility] Start: 02-10-2021 End: 03-17-2021 Alcohol intake Current drinker of alcohol (finding) [facility] Start: 02-10-2021 End: 03-17-2021 Alcohol intake [facility] Start: 02-10-2021 Alcohol Comment 5 beers/week [facility] Start: 1970 Sex Assigned At Not on file A [employer] [facility] Sex Assigned At Sex Assigned At Bir th [facility] Other Start: 1970 Sex Assigned At Male F [facility] Clinical Notes 02-10-2021 to 08-31-2023 Note Date [...] index [BMI] 33.0-33.9, adult (ICD-10 - Z68.33) [facility] Other [id number] Evaluation note* Encounter Date Diagnosis Assessment Notes [...] (ICD-10 - M54.50) Pt requests referral to [place] [facility]. He hopes to lessen his use of NSAIDs to improve his renal function. Jul, Other chronic pain (ICD-10 - G89.29) Jul, JOSÉ (obstructive sleep apnea) (ICD-10 - G47.33) Form completed for [facility]. Jul, Class 2 obesity [...] to ER and Follow-up with me immediately. [facility] Other 08-06-2021 History and physical note* Maik [...] bilateral lumbar facet block documented in this [facility]08-06-2021 History of Present illness Narrative* Humera Genao RN - 04/16/2021 11:30 AM EDT SCRUB - Shellie Alaniz RN RT - S RT Zach JEWELRY SORTER - N/A KEY FILER - Aurelio Genao RN Site cleansed with [...] and earlier as needed. [facility] Instructions* Patient Instructions* Geovanna Degroot RN - 04/16/2021 11:30 AM EDT [facility] WHAT TO EXPECT AFTER A PROCEDURE Follow up appointment: Call the office ([phone]) if you have any questions or develop [...] to call us at . Thank you, [facility] in [facility] History of Present illness [...] tried OTC tylenol, celebrex with somemild relief. [place] has helped in the past, but would [...] Denies dysuria or frequency documented [facility] Instructions* Patient Instructions* Geovanna Degroot [...] when current is passed using the radiofrequency [employer] ne. This numbs the nerves. What should [...] complications are extremely rare. documented in this [facility]-16-2021 History and physical note* Maik Barbosa MD [...] trapezius, and lumbar paraspinal documented in this [facility]-16-2021 History of Present illness Narrative* Madina Summers RN - 02/24/2021 11:15 AM EDT PHYSICIAN - SCRUB - Kitty Mratinez RN KEY FILER - [facility] Site cleansed with chloroprep. Procedure: cervical paraspinal [...] Denies dysuria or frequency documented in [facility] History of Present illness Narrative* [...] Social Gatherings with Friends and Family: Attends [employer] Services: Active Member of Clubs or Organizations: [...] tried OTC tylenol, celebrex with somemild relief. [place] has helped in the past, but would [...] within the last year. documented in this [facility]Ad[facility]06-[facility]-2021 Instructions* Patient Instructions* Geovanna Degroot [...] read the attached handout from the [employer] [place] [employer] with guidelines and recommendations for [...] extremely rare. [facility]* Diagnosis Myofascial pain- Primary Mylagia and myositis, unspecified Arthropathy of cervical facet joint Cervical spondylosis without myelopathy Spondylosis of lumbar region without myelopathy or radiculopathy Lumbosacral spondylosis without myelopathy Chronic pain syndrome Compliance with medication regimen [facility]* Diagnosis Spondylosis of lumbar region without myelopathy or radiculopathy Lumbosacral spondylosis without myelopathy documented in this [facility]* Diagnosis Myofascial pain- Primary Mylagia and myositis, unspecified documented in this encounter [facility]* Diagnosis Lumbar spondylosis- Primary Lumbosacral spondylosis without myelopathy Lumbar radiculopathy Thoracic or lumbosacral neuritis or radiculitis, unspecified Spinal stenosis of cervical region Spinal stenosis in cervical region Chronic pain syndrome Myofascial pain Mylagia and myositis, unspecified documented in this encounter [facility]* Diagnosis Lumbar spondylosis- Primary Lumbosacral spondylosis without myelopathy Chronic pain syndrome Myofascial pain Mylagia and myositis, unspecified documented in this encounter [facility] Center[facility] noteNo assessment information availableThe [facility] Work Phone: History general Narrative - Reported* Type Description Date Medical History Elevated cholesterol with elevat ed triglycerides Medical History Low serum testosterone level Medical History Lumbar pain Medical History Hypertension Medical History Diverticulosis Surgical History R shoulder arthroscopy Surgical History FB R wrist Surgical History Umbilical hernia repair 07/12/20 23 Surgical History Colonoscopy 06/25/2023 Hospitalization History SEE SURGICAL HX [facility] [employer] Other Reason for Referral Status Reason Specialty Diagnoses / Procedures Referred By Contact Referred To Contact Auth Not Needed Diagnoses Myofascial pain Chronic pain syndrome Maik Barbosa MD [address] [place] [address] Scheduling Instructions Please PA and schedule: neck and back TPI (pt will need a [address] Barbosa) Reason *FU 08/08 chronic lumbar pain, would benefit from less NSAID use. Diagnosis 1 Low back pain, unspe cified (M54.50) Referral Organization [facility] Referring Provider First Name Kell Referring Provider Last Name Tawnya Referring Provider Specialty Family [facility] Referred Organization [facility] Referred Address [address] [place], [place],[address] Referred Provider Specialty Pain Medicin e Referral Priority Routine General Notes Es Cooper 05:14:13 PM >received today, attachments made, notes locked, referral faxed Clinical Notes f: [id number] Summary Purpose Family History No Family History [...] Chronic pain syndrome Maik Barbosa MD [address] [place] [address] Reason Comments Pain Specialty Diagnoses / Procedures Referred By Contac t Referred To Contact Diagnoses Lumbar facet arthropathy Maik Barbosa MD [address] [place] [address] Referral ID Status Reason Start Date Expiration Date Visits Re quested Visits Authorized [id number] Closed 04/14/2021 05/09/2022 1 1 (unrecognized sect ion and content) No Status Records FoundNo Status Records FoundNo Status Records FoundNo Status Records FoundNo Status Records FoundNo Status Records Found INFORMATION SOURCE (unrecogn ized section and content) DATE CREATED AUTHOR [facility]/10/2021 [facility] DATE CREATED AUTHOR AUTHOR'S ORGANIZ ATION 01/13/2023 [facility] DATE CREATED AUTHOR AUTHOR'S ORGANIZ ATION 11/17/2023 [facility] DATE CREATED AUTHOR AUTHOR'S ORGANIZ ATION 12/28/2023 [facility] DATE CREATED AUTHOR AUTHOR'S ORGANIZ ATION 05/17/2024 [facility] EPIC DATE CREATED AUTHOR AUTHOR'S ORGANIZ ATION 06/07/2024 Manuelito Villegas [facility] Care Teams (unrecognized sec tion and content) Assistant Front Office Manager Relationship Specialty Start Date End Date Kell Bowling MD [address] [place] [phone] PCP - General Family Medicine 02/10/21 Team [...] BE BASED ON THE PRIMARY CLINICAL RECORDS. [employer] provides no warranty or guarantee of the accuracy or completeness of information in this document.
== END 2024-07-22 08:20 | disposition home or self-care (01) ==
LOC: MRI 08:19
PROVIDERS: PCP Family Medicine; Visit Provider Anesthesiology Pain Medicine
DX: M51.16 Intervertebral disc disorders with radiculopathy, lumbar region (principal)
CPT/HCPCS: 72148

== ENCOUNTER 2024-07-29 13:23 | Outpatient (OUT) | payer BC, SELFPAY ==
[2024-07-29 13:44] LABS: Hematocrit 46.8 % (42.0-54.0)
[2024-07-30 08:15] LABS: Testosterone 464 ng/dL (264-916)
== END 2024-07-29 13:24 | disposition home or self-care (01) ==
LOC: LAB 13:24
PROVIDERS: PCP Family Medicine; Visit Provider Urology
DX: E29.1 Testicular hypofunction (principal)
CPT/HCPCS: 36415; 84403; 85014

== ENCOUNTER 2024-07-30 10:57 | Outpatient (OUT) | payer BC, SELFPAY ==
--- OUTSIDE RECORDS SUMMARY | 2024-07-30 11:16 | XMS_ITS | CCD ---
Author Organization [facility] Care Team Providers Care Customer Success Associate Name Role Phone Kell Bowling MD Primary Care Provider [phone] TAWNYA, DR KELL Monet Primary Care Unavailable [...] ., DR CONNIE Monet Admitting Unavaila ble GRRONDA ., DR CONNIE Moent Attending Unavaila ble TAWNYA, DR KELL Monet Primary Care Unavailable GRRONDA ., DR CONNIE Monet Admitting Unavaila ble PEÑA ., DR CONNIE Monet Attending Unavaila ble BOWLING, DR KELL Monet Primary Care Unavailable GRILLIS ., DR CONNIE Monet Attending Unavaila ble GRRONDA ., DR CONNIE Monet Consulting Unavaila ble PEÑA ., DR CONNIE Monet Admitting Unavaila ble LAURY, DR CHRISTOFER Hernandez Consulting Unavailable TAWNYA, DR KELL Monet Primary Care Unavailable FISHER ., DR CINTRON Attending Unavailable FISHER ., DR CINTRON Consulting Unavailable FISHER ., DR CINTRON Admitting Unavailable BOWLING, DR KELL Monet Admitting Unavailable BOWLING, DR KELL Monet Attending Unavailable BOWLING, DR KELL Monet Consulting Unavailable BOWLING, DR KELL Monet Primary Care Unavailable Tawnya, Kell Unavailable Gurinder FERMIN, Luis Stallings Attending Unavailable Kell Bowling Primary Care Unavailable Margaux Estrada Attending Unavailable Margaux Estrada Admitting Unavailable MINA PINEDO Attending Unavailable BLAS GALVAN Attending Unavailable Chata Page Attending Unavailable Allergies Allergy Classification Reported Allergen(s) Allergy Type Date of Onset Reaction(s) Facility (2 sources) patient allergy list reviewed by nurse or physicia Propensity to adverse reactions Comment:Done [facility] Other (2 sources) Allergies Reconciled Propensity to adverse reactions Unknown [employer] Other Medications Current Medications Medication Drug Class(es) [...] oral daily for 90 *Pick strength-form from [employer] for eRX* Aug, Active Start: 02-05-2021 atenolol-chlor thalidone 50-25 MG tablet cyclobenzaprine hydrochloride 10 mg oral tablet (7 sources) Muscle Relaxant Start: 05-31-2022 take 1 tablet by mouth three times daily as needed cyclobenzaprine 10mg cyclobenzaprine 10mg, 1 (one) Tablet three times daily, as needed # 30, 05/31/2022, No Refill. Active oral three times daily, as needed for 0 *Reorder from [employer] for eRx and Interaction Alerts* 20 May, [...] Refill. Active transdermal for 0 *Reorder from [employer] for eRx and Interaction Alerts* May, Active [...] Plasmaon 12-26-2023 Albumin [Mass/Vol] 3.7 g/dL 2.9-4.4 [facility] Basophils Auto (Bld) [#/Vol] on 12-26-2023 Basophils (Bld) [#/Vol] 0.1 10 3/uL 0.0-0.1 [facility] Basophils/100 WBC Auto (Bld) on 12-26-2023 Basophils/100 WBC (Bld) 0.7 % 0.2-2.0 [facility] Eosinophils/100 WBC Auto (Bl d)on 12-26-2023 Eosinophils/100 WBC (Bld) 3.0 % 0.9-7.0 [facility] Erythrocyte distribution wid th Auto (RBC) [Ratio]on 12-26-2023 Erythrocyte distribution width (RBC) [Ratio] 21.4 % 11.0-15.0 [facility] Hematocrit Auto (Bld) [Volum e fraction]on 12-26-2023 Hematocrit (Bld) [Volume fraction] 47.9 % 42.0-54.0 [facility] Hemoglobin [Mass/volume] in Bloodon 12-26-2023 Hemoglobin (Bld) [Mass/Vol] 15.7 g/dL 14.0-18.0 [facility] IgA [Mass/volume] in Serum o r Plasmaon 12-26-2023 IgA [Mass/Vol] 232 mg/dL 90-386 [facility] IgG [Mass/volume] in Serum o r Plasmaon 12-26-2023 IgG [Mass/Vol] 1144 mg/dL 603-1613 [facility] IgM [Mass/volume] in Serum o r Plasmaon 12-26-2023 IgM [Mass/Vol] 79 mg/dL 20-172 [facility] Bradley 12-26-2023 L Specimen: BP Received: 12/27/23 Status: KELSIE Johnson Num: [id number] Spec Type: Impression Subm Dr: Margaux Estrada MD Tissues: PATHPER Procedures: PATHREVIEW Age/ Patient Sex Location Account Attending Physician Manuel Rosas 53/M [facility] [id number] Margaux Estrada MD SPEC NUM: [id number] RECD: 12/27/23 STATUS: KELSIE JOHNSON NUM: [id number] MAYRA: 12/26/[address]: Margaux Estrada MD ENTERED: 12/27/[address]: Chase Oropeza SPEC TYPE: Impression DEPT: KELSIE Jackson ENTERED BY: [id number] RECV BY: [id number] ORDERED: PATHREVIEW ORDERED: PATHREVIEW Pathologist Review Occasional atypical lymphocytes are noted. Atypical infection should be ruled out. Specimen: Received: 12/27/23 Status: KELSIE Elizabeth Num: [id number] Spec Type: Impression Subm Dr: Margaux Estrada MD Tissues: PATHPER Procedures: PATHREVIEW Patient: Manuel Rosas [id number] (Continued) Signed (signature on file) Elroy Hutchins MD 12/27/23 1523 Normal [facility] Laboratory - Chemistry and C hemistry - challengeon 12-26-2023 LDH [Catalytic activity/Vol] 211 U/L 85-227 [facility] Protein [Mass/Vol] 0.2 g/dL Not Observed [facility] Laboratory - Hematology and Cell countson 12-26-2023 Immature granulocytes/100 WBC (Bld) 0.2 % 0.0-0.5 [facility] Leukocytes [#/volume] correc josé for nucleated erythrocytes in Blood by Automated counon 12-26-2023 WBC corrected for nucl RBC Auto (Bld) [#/Vol] 9.7 10 3/uL 4.0-11.0 [facility] Lymphocytes Auto (Bld) [#/Vo l]on 12-26-2023 Lymphocytes (Bld) [#/Vol] 3.5 10 3/uL 1.2-3.8 [facility] Lymphocytes/100 WBC Auto (Bl d)on 12-26-2023 Lymphocytes/100 WBC (Bld) 36.4 % 20.5-60.0 [facility] MCH Auto (RBC) [Entitic mass ]on 12-26-2023 MCH (RBC) [Entitic mass] 27.5 pg 25.9-34.0 [facility] MCHC Auto (RBC) [Mass/Vol]on 12-26-2023 MCHC (RBC) [Mass/Vol] 32.8 g/dL 29.9-35.2 [facility] MCV Auto (RBC) [Entitic vol] on 12-26-2023 MCV (RBC) [Entitic vol] 84.0 fL 80.0-94.0 [facility] Monocytes Auto (Bld) [#/Vol] on 12-26-2023 Monocytes (Bld) [#/Vol] 0.7 10 3/uL 0.3-0.8 [facility] Monocytes/100 WBC Auto (Bld) on 12-26-2023 Monocytes/100 WBC (Bld) 7.5 % 1.7-12.0 [facility] Neutrophils Auto (Bld) [#/Vo l]on 12-26-2023 Neutrophils (Bld) [#/Vol] 5.1 10 3/uL 1.4-6.5 [facility] Neutrophils/100 WBC Auto (Bl d)on 12-26-2023 Neutrophils/100 WBC (Bld) 52.2 % 43.0-75.0 [facility] No Panel Informationon 12-25 Eosinophils # (Auto) 0.3 10 3/uL 0.0-0.7 [facility] Immature Granulocyte # (Auto) 0.02 10 3/uL 0.00-0.03 [facility] Protein Electrophoresis Note Comment . [facility] Comment on above: Protein electrophore sis scan will follow via computer,mail, or vessel captain delivery.Performed at: [facility] Lab[address] [id number] Director: Checo Pitts PhD, Phone: [phone] Platelet mean volume Auto (B ld) [Entitic vol]on 12-26-2023 Platelet mean volume (Bld) [Entitic vol] 10.0 fL 9.5-13.5 [facility] Platelets Auto (Bld) [#/Vol] on 12-26-2023 Platelets (Bld) [#/Vol] 269 10 3/uL 150-450 [facility] Protein [Mass/volume] in Ser um or Plasmaon 12-26-2023 Protein [Mass/Vol] 6.9 g/dL 6.0-8.5 [facility] RBC Auto (Bld) [#/Vol]on RBC (Bld) [#/Vol] 5.70 10 6/uL 4.70-6.10 [facility] Serum globulin measurement ( mass/volume)on 12-26-2023 Globulin (S) [Mass/Vol] 3.2 g/dL 2.2-3.9 [facility] Serum or plasma albumin/glob ulin mass ratioon 12-26-2023 Albumin/Globulin [Mass ratio] 1.2 {ratio} 0.7-1.7 [facility] Serum or plasma alpha 1 glob ulin measurement by electrophoresis (mass/volume)on 12-26-2023 Alpha 1 globulin Elph [Mass/Vol] 0.2 g/dL 0.0-0.4 [facility] Serum or plasma alpha 2 glob ulin measurement by electrophoresis (mass/volume)on 12-26-2023 Alpha 2 globulin Elph [Mass/Vol] 0.7 g/dL 0.4-1.0 [facility] Serum or plasma beta globuli n measurement by electrophoresis (mass/volume)on 12-26-2023 Beta globulin Elph [Mass/Vol] 1.5 g/dL 0.7-1.3 [facility] Serum or plasma gamma globul in measurement by electrophoresis (mass/volume)on 12-26-2023 Gamma globulin Elph [Mass/Vol] 0.9 g/dL 0.4-1.8 [facility] Serum or plasma immunoelectr ophoresis interpretationon 12-26-2023 Interpretation IEP [Interp] Comment . [facility] Comment on above: Immunofixation shows IgG monoclonal protein with lambdalight chain specificity. Basophils Auto (Bld) [#/Vol] on 12-19-2023 Basophils (Bld) [#/Vol] 0.1 10 3/uL 0.0-0.1 [facility] Basophils/100 WBC Auto (Bld) on 12-19-2023 Basophils/100 WBC (Bld) 1.1 % 0.2-2.0 [facility] Eosinophils/100 WBC Auto (Bl d)on 12-19-2023 Eosinophils/100 WBC (Bld) 3.3 % 0.9-7.0 [facility] Erythrocyte distribution wid th Auto (RBC) [Ratio]on 12-19-2023 Erythrocyte distribution width (RBC) [Ratio] 21.6 % 11.0-15.0 [facility] Hematocrit Auto (Bld) [Volum e fraction]on 12-19-2023 Hematocrit (Bld) [Volume fraction] 45.7 % 42.0-54.0 [facility] Hemoglobin [Mass/volume] in Bloodon 12-19-2023 Hemoglobin (Bld) [Mass/Vol] 14.9 g/dL 14.0-18.0 [facility] Iron binding capacity [Mass/ volume] in Serum or Plasmaon 12-19-2023 Iron binding capacity [Mass/Vol] 370.0 ug/dL 250.0-450.0 [facility] Iron saturation [Mass Fracti on] in Serum or Plasmaon 12-19-2023 Iron saturation [Mass fraction] 37.6 % [facility] Laboratory - Chemistry and C hemistry - challengeon 12-19-2023 Ferritin [Mass/Vol] 31.0 ng/mL 26.0-388.0 [facility] Iron [Mass/Vol] 139.0 ug/dL 65.0-175.0 [facility] Laboratory - Hematology and Cell countson 12-19-2023 Immature granulocytes/100 WBC (Bld) 0.5 % 0.0-0.5 [facility] Leukocytes [#/volume] correc josé for nucleated erythrocytes in Blood by Automated counon 12-19-2023 WBC corrected for nucl RBC Auto (Bld) [#/Vol] 9.4 10 3/uL 4.0-11.0 [facility] Lymphocytes Auto (Bld) [#/Vo l]on 12-19-2023 Lymphocytes (Bld) [#/Vol] 3.3 10 3/uL 1.2-3.8 [facility] Lymphocytes/100 WBC Auto (Bl d)on 12-19-2023 Lymphocytes/100 WBC (Bld) 34.5 % 20.5-60.0 [facility] MCH Auto (RBC) [Entitic mass ]on 12-19-2023 MCH (RBC) [Entitic mass] 26.8 pg 25.9-34.0 [facility] MCHC Auto (RBC) [Mass/Vol]on 12-19-2023 MCHC (RBC) [Mass/Vol] 32.6 g/dL 29.9-35.2 [facility] MCV Auto (RBC) [Entitic vol] on 12-19-2023 MCV (RBC) [Entitic vol] 82.2 fL 80.0-94.0 [facility] Monocytes Auto (Bld) [#/Vol] on 12-19-2023 Monocytes (Bld) [#/Vol] 0.9 10 3/uL 0.3-0.8 [facility] Monocytes/100 WBC Auto (Bld) on 12-19-2023 Monocytes/100 WBC (Bld) 9.2 % 1.7-12.0 [facility] Neutrophils Auto (Bld) [#/Vo l]on 12-19-2023 Neutrophils (Bld) [#/Vol] 4.9 10 3/uL 1.4-6.5 [facility] Neutrophils/100 WBC Auto (Bl d)on 12-19-2023 Neutrophils/100 WBC (Bld) 51.4 % 43.0-75.0 [facility] No Panel Informationon 12-18 Eosinophils # (Auto) 0.3 10 3/uL 0.0-0.7 [facility] Immature Granulocyte # (Auto) 0.05 10 3/uL 0.00-0.03 [facility] Miscellaneous Test COMMENT . [facility] Comment on above: Test Ordered: [id number] Hgb Fractionation CascadeHgb F 0.0 % CB Reference Range: 0.0-2.0Hgb A 97.8 % CB Reference Range: 96.4-98.8Hgb A2 2.2 % CB Reference Range: 1.8-3.2Hgb S 0.0 % CB Reference Range: 0.0Interpretation: Comment CB Reference Range: .Normal hemoglobin present; no hemoglobin variant or betathalassemia identified.Note: Alpha thalassemia may not be detected by the HgbFractionation [place] panel. If alpha thalassemia issuspected, [facility] offers Alpha-Thalassemia DNA Analysis(#[id number]).Performed at: - [place] [id number] Director: Checo Pitts PhD, Phone: [phone] Platelet mean volume Auto (B ld) [Entitic vol]on 12-19-2023 Platelet mean volume (Bld) [Entitic vol] 9.4 fL 9.5-13.5 [facility] Platelets Auto (Bld) [#/Vol] on 12-19-2023 Platelets (Bld) [#/Vol] 299 10 3/uL 150-450 [facility] RBC Auto (Bld) [#/Vol]on RBC (Bld) [#/Vol] 5.56 10 6/uL 4.70-6.10 [facility] Basophils Auto (Bld) [#/Vol] on 11-08-2023 Basophils (Bld) [#/Vol] 0.1 10 3/uL 0.0-0.1 [facility] Basophils/100 WBC Auto (Bld) on 11-08-2023 Basophils/100 WBC (Bld) 0.9 % 0.2-2.0 [facility] Eosinophils/100 WBC Auto (Bl d)on 11-08-2023 Eosinophils/100 WBC (Bld) 3.2 % 0.9-7.0 [facility] Erythrocyte distribution wid th Auto (RBC) [Ratio]on 11-08-2023 Erythrocyte distribution width (RBC) [Ratio] 17.4 % 11.0-15.0 [facility] Hematocrit Auto (Bld) [Volum e fraction]on 11-08-2023 Hematocrit (Bld) [Volume fraction] 43.5 % 42.0-54.0 [facility] Hemoglobin [Mass/volume] in Bloodon 11-08-2023 Hemoglobin (Bld) [Mass/Vol] 13.2 g/dL 14.0-18.0 [facility] Laboratory - Chemistry and C hemistry - challengeon 11-08-2023 Cobalamin (Vitamin B12) [Mass/Vol] 986.0 pg/mL 193.0-986.0 [facility] Ferritin [Mass/Vol] 14.0 ng/mL 26.0-388.0 [facility] Laboratory - Hematology and Cell countson 11-08-2023 Immature granulocytes/100 WBC (Bld) 0.2 % 0.0-0.5 [facility] Leukocytes [#/volume] correc josé for nucleated erythrocytes in Blood by Automated counon 11-08-2023 WBC corrected for nucl RBC Auto (Bld) [#/Vol] 10.0 10 3/uL 4.0-11.0 [facility] Lymphocytes Auto (Bld) [#/Vo l]on 11-08-2023 Lymphocytes (Bld) [#/Vol] 3.6 10 3/uL 1.2-3.8 [facility] Lymphocytes/100 WBC Auto (Bl d)on 11-08-2023 Lymphocytes/100 WBC (Bld) 35.5 % 20.5-60.0 [facility] MCH Auto (RBC) [Entitic mass ]on 11-08-2023 MCH (RBC) [Entitic mass] 23.9 pg 25.9-34.0 [facility] MCHC Auto (RBC) [Mass/Vol]on 11-08-2023 MCHC (RBC) [Mass/Vol] 30.3 g/dL 29.9-35.2 [facility] MCV Auto (RBC) [Entitic vol] on 11-08-2023 MCV (RBC) [Entitic vol] 78.7 fL 80.0-94.0 [facility] Monocytes Auto (Bld) [#/Vol] on 11-08-2023 Monocytes (Bld) [#/Vol] 0.9 10 3/uL 0.3-0.8 [facility] Monocytes/100 WBC Auto (Bld) on 11-08-2023 Monocytes/100 WBC (Bld) 8.5 % 1.7-12.0 [facility] Neutrophils Auto (Bld) [#/Vo l]on 11-08-2023 Neutrophils (Bld) [#/Vol] 5.2 10 3/uL 1.4-6.5 [facility] Neutrophils/100 WBC Auto (Bl d)on 11-08-2023 Neutrophils/100 WBC (Bld) 51.7 % 43.0-75.0 [facility] No Panel Informationon 11-08 Eosinophils # (Auto) 0.3 10 3/uL 0.0-0.7 [facility] Folate 19.60 ng/mL 8.60-58.90 [facility] Immature Granulocyte # (Auto) 0.02 10 3/uL 0.00-0.03 [facility] Platelet mean volume Auto (B ld) [Entitic vol]on 11-08-2023 Platelet mean volume (Bld) [Entitic vol] 9.4 fL 9.5-13.5 [facility] Platelets Auto (Bld) [#/Vol] on 11-08-2023 Platelets (Bld) [#/Vol] 384 10 3/uL 150-450 [facility] RBC Auto (Bld) [#/Vol]on RBC (Bld) [#/Vol] 5.53 10 6/uL 4.70-6.10 [facility] Pre-Certification Formon Pre-Certification Form [id number] #1.00TIFF Normal [facility] TESTOSTERONE, TOTALon 2022 Testosterone [Mass/Vol] 487 ng/dL Normal 264-916 [facility] Comment on above: Result Comment: Adul t male reference interval is based on a population of healthy nonobese males (BMI <30) between 19 and 39 years old. Joni et.al. JCEM 2017,102;4059-7812. PMID: [id number]. Performed By: #### T ESTTOT #### [facility] [address] [place] [address] Dr. Mychal Oropeza US SINGLE QUAD RT [...] by: CHRISTOFER SCHAEFFER Date: 2022-08-25 07:07 Normal [facility] TESTOSTERONE, TOTALon 2021 Testosterone [Mass/Vol] 410 ng/dL Normal 264-916 [facility] Comment on above: Result Comment: Adul t male reference interval is based on a population of healthy nonobese males (BMI <30) between 19 and 39 years old. Joni et.al. JCEM 2017,102;4703-4438. PMID: [id number]. Performed By: #### T ESTTOT #### [facility] [address] [place] [address] Dr. Mychal Oropeza CBC AUTO DIFFon 05-27-2022 BASO # 0.1 103/ul Normal 0.0-0.1 [facility] Comment on above: Performed By: #### C BC #### [facility] [address] [place] [address] [address] Mychal Oropeza Basophils/100 WBC (Bld) 0.9 % Normal 0.2-2.0 [facility] Comment on above: Performed By: #### C BC #### [facility] [address] [place] [address] [address] Mychal Oropeza EO # 0.7 103/ul Normal 0.0-0.7 [facility] Comment on above: Performed By: #### C BC #### [facility] [address] [place] [address] [address] Mychal Oropeza Eosinophils/100 WBC (Bld) 6.7 % Normal 0.9-7.0 [facility] Comment on above: Performed By: #### C BC #### [facility] [address] [place] [address] Dr. Mychal Oropeza Erythrocyte distribution width (RBC) [Ratio] 12.8 % Normal 11.0-15.0 [facility] Comment on above: Performed By: #### C BC #### [facility] [address] [place] [address] Dr. Mychal Oropeza Hematocrit (Bld) [Volume fraction] 46.9 % Normal 42.0-54.0 [facility] Comment on above: Performed By: #### C BC #### [facility] [address] [place] [address] Dr. Mychal Oropeza Hemoglobin (Bld) [Mass/Vol] 16.2 g/dL Normal 14.0-18.0 [facility] Comment on above: Performed By: #### C BC #### [facility] [address] [place] [address] Dr. Mychal Oropeza IG # 0.04 10e3/ul Critically high 0.00-0.03 [facility] Comment on above: Performed By: #### C BC #### [facility] [address] [place] [address] Dr. Mychal Oropeza IG % 0.4 % Normal 0.0-0.5 [facility] Comment on above: Performed By: #### C BC #### [facility] [address] [place] [address] Dr. Mychal Oropeza LYMPH # 4.1 103/ul Critically high 1.2-3.8 [facility] Comment on above: Performed By: #### C BC #### [facility] [address] [place] [address] Dr. Mychal Oropeza Lymphocytes/100 WBC (Bld) 37.7 % Normal 20.5-60.0 [facility] Comment on above: Performed By: #### C BC #### [facility] [address] [place] [address] Dr. Mychal Oropeza MANUAL DIFF REQ NO Normal [facility] Comment on above: Performed By: #### C BC #### [facility] [address] [place] [address] Dr. Mychal Oropeza MCH (RBC) [Entitic mass] 30.7 pg Normal 25.9-34.0 [facility] Comment on above: Performed By: #### C BC #### [facility] [address] [place] [address] [address] Mychal Oropeza MCHC (RBC) [Mass/Vol] 34.5 g/dL Normal 29.9-35.2 [facility] Comment on above: Performed By: #### C BC #### [facility] [address] [place] [address] [address] Mychal Oropeza MCV (RBC) [Entitic vol] 88.8 fL Normal 80.0-94.0 [facility] Comment on above: Performed By: #### C BC #### [facility] [address] [place] [address] [address] Mychal Oropeza MONO # 0.9 103/ul Critically high 0.3-0.8 [facility] Comment on above: Performed By: #### C BC #### [facility] [address] [place] [address] [address] Mychal Oropeaz Monocytes/100 WBC (Bld) 8.1 % Normal 1.7-12.0 [facility] Comment on above: Performed By: #### C BC #### [facility] [address] [place] [address] [address] Mychal Oropeza NEUT # 5.1 103/ul Normal 1.4-6.5 [facility] Comment on above: Performed By: #### C BC #### [facility] [address] [place] [address] [address] Mychal Oropeza Neutrophils/100 WBC (Bld) 46.2 % Normal 43.0-75.0 [facility] Comment on above: Performed By: #### C BC #### [facility] [address] [place] [address] [address] Mychal Oropeza Platelet mean volume (Bld) [Entitic vol] 9.7 fL Normal 9.5-13.5 [facility] Comment on above: Performed By: #### C BC #### [facility] [address] [place] [address] [address] Mychal Oropeza PLT 308 103/ul Normal 150-450 [facility] Comment on above: Performed By: #### C BC #### [facility] [address] [place] [address] Dr. Mychal Oropeza RBC 5.28 106/ul Normal 4.70-6.10 [facility] Comment on above: Performed By: #### C BC #### [facility] [address] [place] [address] [address] Mychal Oropeza WBC 10.9 103/ul Normal 4.0-11.0 [facility] Comment on above: Performed By: #### C BC #### [facility] [address] [place] [address] Dr. Mychal Oropeza GLYCOHEMOGLOBIN A1Con 2021 ADA RECOMMENDATION SEE BELOW Normal [facility] Comment on above: Result Comment: ADA RECOMMENDED LIMIT 4.0 - 6.0 ADA THERAPEUTIC TARGET < 7.0 ACTION SUGGESTED > 7.0 Performed By: #### A 1C #### [facility] [address] [place] [address] Dr. Mychal Oropeza Glucose [Mass/Vol] 108 mg/dL Normal [facility] Comment on above: Performed By: #### A 1C #### [facility] [address] [place] [address] Dr. Mychal Oropeza HbA1c (Bld) [Mass fraction] 5.4 % Normal 4.5-6.2 [facility] Comment on above: Performed By: #### A 1C #### [facility] [address] [place] [address] Dr. Mychal Oropeza LIPID PROFILEon 05-27-2022 CHOL-HDL RATIO NORM SEE BELOW Normal [facility] Comment on above: Result Comment: 3.3 - 4.4 LOW RISK 4.4 - 7.1 AVERAGE RISK 7.1 - 11.0 MODERATE RISK >11.0 HIGH RISK Performed By: #### T SH, LIPID, CMP #### [facility] [address] [place] [address] Dr. Mychal Oropeza Cholesterol [Mass/Vol] 207 mg/dL Critically high <=200 [facility] Comment on above: Performed By: #### T SH, LIPID, CMP #### [facility] [address] [place] [address] [address] Mychal Oropeza Cholesterol in HDL [Mass/Vol] 47 mg/dL Normal 40-[address] [facility] Comment on above: Performed By: #### T SH, LIPID, CMP #### [facility] [address] [place] [address] [address] Mychal Oropeza Cholesterol in LDL [Mass/Vol] 122.4 mg/dL Normal [facility] Comment on above: Performed By: #### T SH, LIPID, CMP #### [facility] [address] [place] [address] [address] Mychal Oropeza Cholesterol.total/Cholest corbin in HDL [Mass ratio] 4.4 {ratio} Normal [facility] Comment on above: Performed By: #### T SH, LIPID, CMP #### [facility] [address] [place] [address] [address] Mychal Oropeza HDL NORMAL > or = 60 mg/dl - LOW CARDIOVASCULAR RISK <40 mg/dl - HIGH CARDIOVASCULAR RISK Normal [facility] Comment on above: Performed By: #### T KADIE, LIPID, CMP #### [facility] [address] [place] [address] [address] Mychal Oropeza LDL CALC NORMAL SEE BELOW Normal [facility] Comment on above: Result Comment: <100 mg/dl OPTIMAL 100 - 129 mg/dl NEAR OR ABOVE OPTIMAL 130 - 159 mg/dl BORDERLINE HIGH 160 - 189 mg/dl HIGH >190 mg/dl VERY HIGH Performed By: #### T KADIE, LIPID, CMP #### [facility] [address] [place] [address] [address] Mychal Oropeza Triglyceride [Mass/Vol] 188 mg/dL Critically high <=[address] [facility] Comment on above: Performed By: #### T SH, LIPID, CMP #### [facility] [address] [place] [address] Dr. Mychal Oropeza VLDL CALC 37.6 mg/dL Normal [facility] Comment on above: Performed By: #### T SH, LIPID, CMP #### [facility] [address] [place] [address] [address] Mychal Oropeza PROF 14(COMP METB)on 022 Albumin [Mass/Vol] 3.9 g/dL Normal 3.4-5.0 [facility] Comment on above: Performed By: #### T SH, LIPID, CMP #### [facility] [address] [address] [address] Mychal Oropeza Albumin/Globulin [Mass ratio] 1.1 {ratio} Normal [facility] Comment on above: Performed By: #### T SH, LIPID, CMP #### [facility] [address] [address] [address] Mychal Oropeza ALP [Catalytic activity/Vol] 77 U/L Normal 46-116 [facility] Comment on above: Performed By: #### T SH, LIPID, CMP #### [facility] [address] [place] [address] Dr. Mychal Oropeza ALT [Catalytic activity/Vol] 56 U/L Normal 16-63 [facility] Comment on above: Performed By: #### T SH, LIPID, CMP #### [facility] [address] [address] [address] Mychal Oropeza Anion gap [Moles/Vol] 8.6 mmol/L Normal [facility] Comment on above: Performed By: #### T SH, LIPID, CMP #### [facility] [address] [place] [address] Dr. Mychal Oropeza AST [Catalytic activity/Vol] 30 U/L Normal 15-37 [facility] Comment on above: Performed By: #### T SH, LIPID, CMP #### [facility] [address] [address] [address] Mychal Oropeza Bilirubin [Mass/Vol] 0.6 mg/dL Normal 0.2-1.0 [facility] Comment on above: Performed By: #### T SH, LIPID, CMP #### [facility] [address] [address] [address] Mychal Oropeza Calcium [Mass/Vol] 9.2 mg/dL Normal 8.5-10.[address] [facility] Comment on above: Performed By: #### T SH, LIPID, CMP #### [facility] [address] [address] [address] Mychal Oropeza Chloride [Moles/Vol] 100 mmol/L Normal 98-107 [facility] Comment on above: Performed By: #### T SH, LIPID, CMP #### [facility] [address] [address] [address] Mychal Oropeza CO2 [Moles/Vol] 30.0 mmol/L Normal 21.0-32.0 [facility] Comment on above: Performed By: #### T SH, LIPID, CMP #### [facility] [address] [address] [address] Mychal Oropeza Creatinine [Mass/Vol] 1.37 mg/dL Critically high 0.70-1.30 [facility] Comment on above: Performed By: #### T SH, LIPID, CMP #### [facility] [address] [place] [address] Dr. Mychal Oropeza EGFR-AF HONG [place]ER >60 Normal >=60 [facility] Comment on above: Performed By: #### T SH, LIPID, CMP #### [facility] [address] [place] [address] Dr. Mychal Oropeza EGFR-NON AF [place]ER 55 mL/min/1.73m2 Critically low >=60 [facility] Comment on above: Performed By: #### T SH, LIPID, CMP #### [facility] [address] [place] [address] Dr. Mychal Oropeza Globulin (S) [Mass/Vol] 3.7 g/dL Normal [facility] Comment on above: Performed By: #### T SH, LIPID, CMP #### [facility] [address] [place] [address] Dr. Mychal Oropeza Glucose [Mass/Vol] 111 mg/dL Critically high 74-106 [facility] Comment on above: Performed By: #### T SH, LIPID, CMP #### [facility] [address] [place] [address] Dr. Mychal Oropeza Potassium [Moles/Vol] 3.6 mmol/L Normal 3.5-5.1 [facility] Comment on above: Performed By: #### T SH, LIPID, CMP #### [facility] [address] [address] [address] Mychal Oropeza Protein [Mass/Vol] 7.6 g/dL Normal 6.4-8.2 [facility] Comment on above: Performed By: #### T SH, LIPID, CMP #### [facility] [address] [place] [address] Dr. Mychal Oropeza Sodium [Moles/Vol] 135 mmol/L Critically low 136-145 [facility] Comment on above: Performed By: #### T SH, LIPID, CMP #### [facility] [address] [place] [address] Dr. Mychal Oropeza Urea nitrogen [Mass/Vol] 14.0 mg/dL Normal 7.0-18.0 [facility] Comment on above: Performed By: #### T SH, LIPID, CMP #### [facility] [address] [place] [address] Dr. Mychal Oropeza Urea nitrogen/Creatinine [Mass ratio] 10.2 mg/mg Normal [facility] Comment on above: Performed By: #### T SH, LIPID, CMP #### [facility] [address] [place] [address] Dr. Mychal Oropeza TSHon 05-27-2022 TSH 2.907 uIU/mL Normal 0.358-3.740 [facility] Comment on above: Performed By: #### T SH, LIPID, CMP #### [facility] [address] [place] [address] Dr. Mychal Oropeza TESTOSTERONE, TOTALon 2021 Testosterone [Mass/Vol] 324 ng/dL Normal 264-916 [facility] Comment on above: Result Comment: Adul t male reference interval is based on a population of healthy nonobese males (BMI <30) between 19 and 39 years old. bouchra Quinones.al. JCEM 2017,102;6123-1657. PMID: [id number]. Performed By: #### T ESTTOT #### [facility] [address] [place] [address] Dr. Mychal Oropeza XR SPINE CERVICAL WITH [...] fair flexion. No instability is noted. Normal [facility] XR SPINE LUMBAR W BENDINGon 02-10-2021 [...] good range of motion without instability. Normal [facility] XR SPINE LUMBAR W BENDINGOrd ered By: Maik Barbosa on 02-10-2021 IMPRESSION: Lumbar spine visually is fairly well preserved. There is no evidence of fracture, listhesis, significant disc space narrowing or major degenerative changes. There is a very good range of motion without instability. [employer] EXAM: XR SPINE LUMBAR W BENDING HISTORY: [...] motion. There is no listhesis or instability. [employer] User, Interfaces - 02/10/2021 4:52 PM EDT [...] very good range of motion without instability. [employer] [facility] [employer] [facility] Vital Signs Date Time Vital Sign Value Performing Clinician Facility 08-31-2023 15:30-0500 Body height 170.18 cm Kell Bowling Other [facility] Other 08-31-2023 15:30-0500 Body mass index (BMI) [Ratio] 33.04 kg/m2 Kell Bowling Other [facility] Other 08-31-2023 15:30-0500 Body weight 95.71 kg Kell Bowling Other [facility] Other 08-31-2023 15:30-0500 Diastolic blood pressure 77 mm[Hg] Kell Bowling Other [facility] Other 08-31-2023 15:30-0500 Systolic blood pressure 119 mm[Hg] Kell Bowling Other [facility] Other 08-01-2023 08:30-0500 Body height 170.18 cm Kell Bowling Other [facility] Other 08-01-2023 08:30-0500 Body mass index (BMI) [Ratio] 35.14 kg/m2 Kell Bowling Other [facility] Other 08-01-2023 08:30-0500 Body weight 101.79 kg Kell Bowling Other [facility] Other 08-01-2023 08:30-0500 Diastolic blood pressure 82 mm[Hg] Kell Bowling Other [facility] Other 08-01-2023 08:30-0500 Systolic blood pressure 118 mm[Hg] Kell Bowling Other [facility] Other 04-16-2021 12:05-0400 Diastolic blood pressure 97 mm[Hg] Maik Barbosa MD Work Phone: [employer] 04-16-2021 12:05-0400 Heart rate 54 /min Maik Barbosa MD Work Phone: [employer] 04-16-2021 12:05-0400 Respiratory rate 16 /min Maik Barbosa MD Work Phone: [employer] 04-16-2021 12:05-0400 SaO2% (BldA) [Mass fraction] 95 % Maki Barbosa MD Work Phone: [facility] 04-16-2021 12:05-0400 Systolic blood pressure 142 mm[Hg] Maik Barbosa MD Work Phone: [facility] 03-17-2021 08:04-0400 Body height 170.2 cm Maik Barbosa MD Work Phone: [facility] 03-17-2021 08:04-0400 Body mass index (BMI) [Ratio] 34.61 kg/m2 Maik Barbosa MD Work Phone: [facility] 03-17-2021 08:04-0400 Body weight 100.25 kg Maik Barbosa MD Work Phone: [facility] 03-17-2021 08:04-0400 Diastolic blood pressure 93 mm[Hg] Maik Barbosa MD Work Phone: [facility] 03-17-2021 08:04-0400 Heart rate 74 /min Maik Barbosa MD Work Phone: [facility] 03-17-2021 08:04-0400 Respiratory rate 20 /min Maik Barbosa MD Work Phone: [facility] 03-17-2021 08:04-0400 SaO2% (BldA) [Mass fraction] 96 % Maik Barbosa MD Work Phone: [facility] 03-17-2021 08:04-0400 Systolic blood pressure 132 mm[Hg] Maik Barbosa MD Work Phone: [facility] 02-24-2021 12:02-0400 Diastolic blood pressure 100 mm[Hg] Maik Barbosa MD Work Phone: [facility] 02-24-2021 12:02-0400 Heart rate 55 /min Maik Barbosa MD Work Phone: [facility] 02-24-2021 12:02-0400 Respiratory rate 18 /min Maik Barbosa MD Work Phone: [facility] 02-24-2021 12:02-0400 SaO2% (BldA) [Mass fraction] 95 % Maik Barbosa MD Work Phone: [facility] 02-24-2021 12:02-0400 Systolic blood pressure 141 mm[Hg] Maik Barbosa MD Work Phone: [facility] 02-10-2021 11:46-0400 Body height 170.2 cm Maik Barbosa MD Work Phone: [facility] 02-10-2021 11:46-0400 Body mass index (BMI) [Ratio] 34.61 kg/m2 Maik Barbosa MD Work Phone: [facility] 02-10-2021 11:46-0400 Body weight 100.25 kg Maik Barbosa MD Work Phone: [facility] 02-10-2021 11:46-0400 Diastolic blood pressure 81 mm[Hg] Maik Barbosa MD Work Phone: [facility] 02-10-2021 11:46-0400 Heart rate 64 /min Maik Barbosa MD Work Phone: [facility] 02-10-2021 11:46-0400 Respiratory rate 18 /min Maik Barbosa MD Work Phone: [facility] 02-10-2021 11:46-0400 SaO2% (BldA) [Mass fraction] 99 % Maik Barbosa MD Work Phone: [facility] 02-10-2021 11:46-0400 Systolic blood pressure 121 mm[Hg] Maik Barbosa MD Work Phone: [facility] Encounters Encounter Date Encounter Type Care Provider Facility Start: 07-31-2024 ambulatory Chata Page Facility:[facility] Oropeza Start: 05-15-2024 End: 05-15-2024 ambulatory BLAS GALVAN Not Available Start: 02-21-2024 End: 02-21-2024 ambulatory MINA PINEDO Not Available Start: 12-26-2023 End: 12-26-2023 ambulatory Kell Bowling Facility:[facility] Start: 12-26-2023 Non-patient / Non-visit [facility] Work Phone: Start: 12-19-2023 Non-patient / Non-visit [facility] Work Phone: Start: 11-20-2023 Non-patient / Non-visit [facility] Work Phone: Start: 11-13-2023 End: 11-14-2023 ambulatory Luis Fairchild MD Facility: [facility] Start: 11-08-2023 Non-patient / Non-visit [facility] Work Phone: Start: 10-02-2023 End: 10-02-2023 Patient encounter procedure [facility]- Start: 08-31-2023 End: 08-31-2023 ambulatory Kell Bowling Other [facility] Other Start: 08-31-2023 Office outpatient vi sit 15 minutes Kell Bowling [facility] Start: 08-01-2023 End: 08-01-2023 ambulatory Kell Bowling Other [facility] Other Start: 08-01-2023 Encounter for genera l adult medical examination without abnormal findings Kell Bowling [facility] Start: 08-01-2023 Periodic preventive med est patient 40-64yrs Kell Bowling [facility] Start: 01-06-2023 End: 01-07-[address] [...] examination without abnormal findings DR KELL BOWLING [facility] Start: 05-27-2022 End: 05-28-[address] KELL BOWLING Facility:[facility] Start: 05-27-2022 End: 05-28-2022 Encounter for general adult medical examination without abnormal findings DR KELL BOWLING Facility:[facility] Start: 01-19-2022 End: 01-20-[address] KELL BOWLING Facility:[facility] Start: 04-16-2021 End: 04-16-2021 Patient encounter procedure Maik Barbosa MD Work Phone: [facility] Comment on above: Lumbar spondylosis ( Primary Dx); Chronic pain syndrome; Myofascial pain Start: 03-17-2021 End: 03-17-2021 Office outpatient visit 15 minutes Maik Barbosa MD Work Phone: [facility] Comment on above: Lumbar spondylosis ( Primary Dx); Lumbar radiculopathy; Spinal stenosis of cervical region; Chronic pain syndrome; Myofascial pain Start: 02-24-2021 End: 02-24-2021 Clinical Support Encounter Maik Barbosa MD Work Phone: [facility] Comment on above: Myofascial pain (Ara reji Dx) Start: 02-10-2021 End: 02-10-2021 Subsequent hospital visit by physician Maik Barbosa MD Work Phone: [facility] Comment on above: Arrived Start: 02-10-2021 End: 02-10-2021 Office outpatient new 45 minutes Maik Barbosa MD Work Phone: [facility] Comment on above: Myofascial pain (Ara reji Dx); Arthropathy of cervical facet joint; Spondylosis of lumbar region without myelopathy or radiculopathy; Chronic pain syndrome; Compliance with medication regimen Procedures Date Procedure Procedure Detail Performing Clinician Start: 05-27-[address] KELL BOWLING Comment on above: Performed By: #### P [facility] #### [facility] [address] [place] [address] Dr. Mychal Oropeza Start: 02-10-2021 Radex spine lumbscrl compl w/bending views min 6 Maik Barbosa MD Work Phone: Plan of Treatment Date Care Activity Detail Author Start: 05-21-2021 End: 05-21-2021 Patient encounter procedure 05/21/2021 Office Visit Anesthesiology Pain t Maik Barbosa MD [address] [place] [address] [facility] Start: 05-12-2021 Influenza vaccination A [facility] Start: 05-07-2021 End: 05-07-2021 Patient encounter procedure 05/07/2021 Office Visit Anesthesiology Pain Maik Carbajal MD [address] [place] [address] [facility] Start: 05-03-2021 End: 05-03-2021 Patient encounter procedure 05/03/2021 Office Visit Anesthesiology Pain Maik Carbajal MD [address] [place] [address] [phone] [facility] Start: 04-27-2021 End: 04-27-2021 Patient encounter procedure 04/27/2021 Office Visit Anesthesiology Pain Maik Carbajal MD [address] [place] [address] [facility] Start: 03-17-2021 End: 03-17-2021 Patient encounter procedure 03/17/2021 Office Visit Anesthesiology Pain Maik Carbajal MD [address] [place] [address] [phone] [facility] Start: 02-24-2021 End: 02-24-2021 Patient encounter procedure 02/24/2021 Office Visit Anesthesiology Pain Mgt Maik Barbosa MD [address] [id number] [phone] [facility] Start: 02-10-2021 End: 02-11-2021 DRUG SCREEN MED COMPLIANCE I DRUG SCREEN MED COMPLIANCE I Lab Routine Compliance with medication regimen Expected: 02/10/2021, Expires: 02/11/2021 [facility] Comment on above: Expected: 02/10/2021 , Expires: 02/11/2021 Start: 02-08-2020 Prostate specific antigen measurement PROSTATE CANCER SCREENING DISCUSSION [facility] Start: 02-08-2020 Zoster vaccine hzv l wilmar for subcutaneous use ZOSTER (SHINGLES) VACCINE (1 of 2) [facility] Start: 2015 Colonoscopy COLORECTAL CAN CER SCREENING DISCUSSION [facility] Start: 2010 Fasting lipid profile LIPID SCREENIN G [facility] Start: 1989 Third diphtheria, tetanus and acellular pertussis (DTaP) vaccination TDAP (ADULT) [facility] Start: 02-08-1988 Tetanus vaccination TETANUS [place] Start: 1985 HIV screening HIV SCREENING DISCUSSI ON [facility] Start: 1982 COVID-19 VACCINE (1) COVID-19 VACCIN E (1) [facility] Start: 1970 Hepatitis C antibody , confirmatory test HEPATITIS C VIRUS SCREENING [facility] Payers Date Payer Category Payer Self-pay 2023 Unknown 2023 Unknown [id number] 2022 Unknown [id number] 2019 Unknown [id number] 2018 Unknown [id number] 1. [id number] 1970 Unknown [id number] 2.16.84 [id number] 1970 Unknown [id number] 2.16.84 [id number] 1970 Unknown [id number] 2.16.84 0.1.582987.3.579.2.593 1970 Unknown [id number] 2.16.84 0.1.335764.3.579.2.593 1970 Unknown [id number] 2.16.84 0.1.568778.3.579.2.593 1970 Unknown [id number] 2.16.84 0.1.566435.3.579.2.593 1970 Unknown [id number] 2.16.84 0.1.380322.3.579.2.593 1970 Unknown [id number] 2.16.84 0.1.345857.3.579.2.593 1970 Unknown [id number] 2.16. 840.1.002681.3.579.2.196 1970 Unknown [id number] 2.16.84 0.1.056908.3.579.2.1259 1970 Unknown [id number] 2.16.84 0.1.040038.3.579.2.1259 1970 Unknown [id number] 2.16.8 40.1.830211.3.579.2.727 1959 Self-pay [id number] Unknown [id number] 2.16.84 [id number] Unknown [id number] 2.16.8 40.1.269875.3.579.2.531 Social History Date Type Detail Facility Start: 02-10-2021 End: 03-17-2021 Tobacco smoking status NHIS Never smoker [facility] Start: 02-10-2021 End: 03-17-2021 Tobacco use and exposure Never used [facility] Start: 02-10-2021 End: 03-17-2021 Alcohol intake Current drinker of alcohol (finding) [facility] Start: 02-10-2021 End: 03-17-2021 Alcohol intake [facility] Start: 02-10-2021 Alcohol Comment 5 beers/week [facility] Start: 1970 Sex Assigned At Not on file A [facility] Sex Assigned At Sex Assigned At Bir th [facility] Other Start: 1970 Sex Assigned At Male F [facility] Clinical Notes 02-10-2021 to 08-31-2023 Note [...] index [BMI] 33.0-33.9, adult (ICD-10 - Z68.33) [facility] Other [id number] Evaluation note* Encounter Date Diagnosis Assessment Notes [...] (ICD-10 - M54.50) Pt requests referral to [facility]. He hopes to lessen his use of NSAIDs to improve his renal function. Jul, Other chronic pain (ICD-10 - G89.29) Jul, JOSÉ (obstructive sleep apnea) (ICD-10 - G47.33) Form completed for [facility]. Jul, Class 2 obesity [...] to ER and Follow-up with me immediately. 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 documented in this [facility]-06-2021 Instructions* Patient Instructions* Geovanna Degroot RN - 04/16/2021 11:30 AM EDT [facility] Pain Management WHAT TO EXPECT AFTER A PROCEDURE Follow up appointment: Call the office ([phone]) if you have any questions or develop [...] [facility] History of Present illness Narrative* Maik Barbosa [...] tried OTC tylenol, celebrex with somemild relief. [place] has helped in the past, but would [...] Denies dysuria or frequency documented in this [facility]-07-2021 Instructions* Patient Instructions* Geovanna Degroot RN - [...] complications are extremely rare. documented in this [facility]2021 History and physical note* Maik Barbosa MD [...] trapezius, and lumbar paraspinal [facility] History of Present illness Narrative* Madina Summers RN - 02/24/2021 11:15 AM EDT PHYSICIAN - SCRUB - Kitty Martinez RN CURRICULUM DEVELOPMENT MANAGER - Madina Site cleansed with chloroprep. Procedure: [...] Denies dysuria or frequency documented in this [facility]-02[facility]2021 History of Present illness Narrative* Maik Barbosa [...] Social Gatherings with Friends and Family: Attends [employer]: Active Member of Clubs or Organizations: [...] tried OTC tylenol, celebrex with somemild relief. [place] has helped in the past, but would [...] within the last year. documented in this [facility]-02[facility]2021 Instructions* Patient Instructions* Geovanna Degroot RN - [...] read the attached handout from the [employer] with guidelines and recommendations for [...] complications are extremely rare. [facility] Diagnosis Myofascial pain- Primary Mylagia and myositis, unspecified Arthropathy of cervical facet joint Cervical spondylosis without myelopathy Spondylosis of lumbar region without myelopathy or radiculopathy Lumbosacral spondylosis without myelopathy Chronic pain syndrome Compliance with medication regimen documented [facility]* Diagnosis Spondylosis of lumbar region without myelopathy or radiculopathy Lumbosacral spondylosis without myelopathy documented in this encounter [facility]* Diagnosis Myofascial pain- Primary Mylagia and myositis, unspecified [facility] Lumbar spondylosis- Primary Lumbosacral spondylosis without myelopathy Lumbar radiculopathy Thoracic or lumbosacral neuritis or radiculitis, unspecified Spinal stenosis of cervical region Spinal stenosis in cervical region Chronic pain syndrome Myofascial pain Mylagia and myositis, unspecified [facility] Diagnosis Lumbar spondylosis- Primary Lumbosacral spondylosis without myelopathy Chronic pain syndrome Myofascial pain Mylagia and myositis, unspecified documented in this [facility] noteNo assessment information [facility]Pe[facility] Work Phone: History general Narrative - Reported* Type Description Date Medical History Elevated cholesterol with elevat ed triglycerides Medical History Low serum testosterone level Medical History Lumbar pain Medical History Hypertension Medical History Diverticulosis Surgical History R shoulder arthroscopy Surgical History FB R wrist Surgical History Umbilical hernia repair 07/12/20 23 Surgical History Colonoscopy 06/25/2023 Hospitalization History SEE SURGICAL HX [facility] Other Reason for Referral Status Reason Specialty Diagnoses / Procedures Referred By Contact Referred To Contact Auth Not Needed Diagnoses Myofascial pain Chronic pain syndrome Maik Barbosa MD [address] [place] [address] Scheduling Instructions Please PA and schedule: neck and back TPI (pt will need a [address] Barbosa) Reason *FU 08/08 chronic lumbar pain, would benefit from less NSAID use. Diagnosis 1 Low back pain, unspe cified (M54.50) Referral Organization [facility] xochitl Referring Provider First Name Kell Referring Provider Last Name Tawnya Referring Provider Specialty Family [facility] Referred Organization [facility] Referred Address [address], [place],[address] Referred Provider Specialty Pain Medicin e Referral Priority Routine General Notes Es Cooper 05:14:13 PM >received today, attachments made, notes locked, referral faxed Clinical Notes f: [id number] Summary Purpose Family History No Family History [...] Chronic pain syndrome Maik Barbosa MD [address] [place] [address] Reason Comments Pain Specialty Diagnoses / Procedures Referred By Contac t Referred To Contact Diagnoses Lumbar facet arthropathy Maik Barbosa MD [address] [id number] Referral ID Status Reason Start Date Expiration Date Visits Re quested Visits Authorized [id number] Closed 04/14/2021 05/09/2022 1 1 (unrecognized sect ion and content) No Status Records FoundNo Status Records FoundNo Status Records FoundNo Status Records FoundNo Status Records FoundNo Status Records Found INFORMATION SOURCE (unrecogn ized section and content) DATE CREATED AUTHOR 05/10/2021 [facility] DATE CREATED AUTHOR AUTHOR'S ORGANIZ ATION 01/13/2023 [facility] DATE CREATED AUTHOR AUTHOR'S ORGANIZ ATION 11/17/2023 [facility] DATE CREATED AUTHOR AUTHOR'S ORGANIZ ATION 12/28/2023 [facility] DATE CREATED AUTHOR AUTHOR'S ORGANIZ ATION 05/17/2024 [facility] EPIC DATE CREATED AUTHOR AUTHOR'S ORGANIZ ATION 07/27/2024 [facility] Care Teams (unrecognized sec tion and content) Customer Success Associate Relationship Specialty Start Date End Date Kell Bowling MD [address] [facility] [place] [address] [place] [address] PCP - General Family Medicine 02/10/21 Team [...] Team Status: Active Member Role Status Dates eKll Bowling MD Primary Care Provider Active Start: [...] BE BASED ON THE PRIMARY CLINICAL RECORDS. [facility] [employer] [facility]. provides no warranty or guarantee of the accuracy or completeness of information in this document.
[2024-07-30 11:28] LABS: Basophils Absolute Auto 0.1 10^3/uL (0.0-0.1); Basophils Percent Auto 0.3 % (0.2-2.0); Eosinophils Absolute Auto 0.1 10^3/uL (0.0-0.7); Eosinophils Percent Auto 0.7 % (0.9-7.0); Hemoglobin 16.5 g/dL (14.0-18.0); Immature Granulocytes Abs Auto 0.09 10^3/uL (0.00-0.03); Immature Granulocytes Pct Auto 0.6 % (0.0-0.5); Lymphocytes Absolute Auto 4.1 10^3/uL (1.2-3.8); Lymphocytes Percent Auto 26.6 % (20.5-60.0); Mean Corpuscular HGB Conc 35.1 g/dL (29.9-35.2); Mean Corpuscular Volume 91.3 fL (80.0-94.0); Mean Platelet Volume 9.1 fL (9.5-13.5); Monocytes Absolute Auto 1.1 10^3/uL (0.3-0.8); Monocytes Percent Auto 7.1 % (1.7-12.0); Neutrophils Absolute Auto 9.9 10^3/uL (1.4-6.5); Neutrophils Percent Auto 64.7 % (43.0-75.0); Platelet Count 280 10^3/uL (150-450); Red Blood Count 5.15 10^6/uL (4.70-6.10); Red Cell Distribution Width 12.6 % (11.0-15.0); White Blood Count 15.3 10^3/uL (4.0-11.0)
[2024-07-30 12:04] LABS: Estimated Average Glucose 114 mg/dL; Glycohemoglobin A1C 5.6 % (4.5-6.2)
[2024-07-30 12:24] LABS: Alanine Aminotransferase 69 U/L (16-63); Albumin Globulin Ratio 0.9; Albumin Level 3.5 g/dL (3.4-5.0); Alkaline Phosphatase 76 U/L (46-116); Anion Gap 12.6; Aspartate Amino Transferase 22 U/L (15-37); Bilirubin Total 1.1 mg/dL (0.2-1.0); Calcium 9.3 mg/dL (8.5-10.1); Carbon Dioxide 28.8 mmol/L (21.0-32.0); Chloride 99 mmol/L (98-107); Chol HDL Ratio 3.1; Cholesterol 171 mg/dL (<=200); Estimated GFR (African America 59 (>=60 mL/min/1.73m^2); Estimated GFR (Non-African Ame 49 (>=60 mL/min/1.73m^2); Globulin 3.8 g/dL; Glucose 96 mg/dL (74-106); HDL Cholesterol 56 mg/dL (40-60); LDL Cholesterol Calculated 101.4 mg/dL; Potassium 3.4 mmol/L (3.5-5.1); Sodium 137 mmol/L (136-145); Thyroid Stimulating Hormone 2.119 uIU/mL (0.358-3.740); Total Protein 7.3 g/dL (6.4-8.2); Triglycerides 68 mg/dL (<=150); VLDL CHOLESTEROL 13.6 mg/dL
[2024-07-30 12:36] LABS: Prostate Specific Antigen Scrn 0.65 ng/mL (<=4.00)
== END 2024-07-30 10:58 | disposition home or self-care (01) ==
LOC: LAB 10:58
PROVIDERS: PCP Family Medicine; Visit Provider Family Medicine
DX: Z00.00 Encounter for general adult medical examination without abnormal findings (principal)
CPT/HCPCS: 36415; 80053; 80061; 83036; 84443; 85025; G0103

== ENCOUNTER 2024-07-30 13:21 | Outpatient (OUT) | payer BC, SELFPAY ==
--- NOTE | 2024-07-30 | CONS_ITS ---
CONSULTATION DATE: 07/30/2024 TO: Kell Jack M.D. CHIEF COMPLAINT: Includes bilateral lower back pain, worse on the right than left side. HISTORY: He returns today complaining of 2-5/10 pain in his lower back, occurring bilaterally, worse on the right than left side, described as a dull aching pain with an occasional sharp component, increased with activities such as standing, walking and performing transitioning maneuvers. Denies any change in bowel and bladder habits or new sensorimotor change in the lower extremities. He has undergone one L4 and L5 transforaminal epidural steroid injection. He reports his pain was dramatically improved by almost 99% post procedurally. Continues to do quite well. He is no longer using [place]. He has reduced his use of diclofenac as well as he is using Robaxin just 750 mg q.a.m. He reserves tizanidine 4 mg at h.s. EXAMINATION: Notable for patient having a non-focal sensorimotor exam of his lower extremities. He continues to have a moderate amount of myofascial spasm of the right erector spinae muscle. IMPRESSION: Our impression, at this point, his radiculopathy is markedly improved. RECOMMENDATIONS: I recommend no further intervention for his residual pain symptoms. I have started him on Zonegran 50 mg up to 100 mg at h.s. and I have asked him to continue using his diclofenac p.r.n. and start aquatic therapy. Will see the patient back in the office on an as needed basis. As part of providing excellent, safe, comprehensive care, the following was completed at our patient's visit: 1. A medication reconciliation and review to ensure accurate knowledge of current/active medications, including asking our patients to inform us about any [id number] medications or herbal remedies/nutritional supplements/alternative remedies. 2. A review to specifically ensure our patients have had annual screening for: elevated body mass index (BMI, see intake chart for exact total), tobacco use, screening for depression, and screening for unhealthy alcohol use. When screening is concerning, patients are provided with education and the specific recommendation to discuss the concerning health issue and treatment options with their primary care provider. SHAYAN
== END 2024-07-30 13:22 | disposition home or self-care (01) ==
LOC: PM 13:21
PROVIDERS: PCP Family Medicine; Visit Provider Nurse Practitioner
DX: Z00.00 Encounter for general adult medical examination without abnormal findings (principal); M54.16 Radiculopathy, lumbar region
CPT/HCPCS: 36415; 80053; 80061; 83036; 84443; 85025; G0103; G0463

== ENCOUNTER 2024-09-11 08:28 | Outpatient (RCR) | payer BC, SELFPAY | END 2024-10-05 14:04 | disposition home or self-care (01) | LOC: PT 08:28 | PROVIDERS: PCP Family Medicine; Visit Provider Nurse Practitioner | DX: M47.816 Spondylosis without myelopathy or radiculopathy, lumbar region (principal) | CPT/HCPCS: 20561; 97110; 97140 ==

== ENCOUNTER 2024-11-08 11:37 | Outpatient (OUT) | payer BC, SELFPAY ==
--- OUTSIDE RECORDS SUMMARY | 2024-11-08 11:51 | XMS_ITS | CCD ---
Author Organization [facility] Care Team Providers Care Nut Roaster Helper Name Role Phone Kell Bowling MD Primary Care Provider [phone] TAWNYA, DR KELL Monet Primary Care Unavailable KASSIE Isidro, DR LIZBETH Donald Attending Unavaila marilin Isidro, DR LIZBETH Donald Consulting Unavaila marilin Isidro, DR LIZBETH Donald Admitting Unavaila ble BOWLING, DR KELL Monet Primary [...] Care Unavailable GRILLIS ., DR CONNIE Monet Admitting Unavaila ble PEÑA ., DR CONNIE Monet Attending Unavaila ble TAWNYA, DR KELL Monet Primary Care Unavailable GRILLIAme ., DR CONNIE Monet Admitting Unavaila ble GRRONDA ., DR CONNIE Monet Attending Unavaila ble BOWLING, DR KELL Monet Primary Care Unavailable GRILLIAme ., DR CONNIE Monet Admitting Unavaila ble GRRONDA ., DR CONNIE Monet Attending Unavaila ble TAWNYA, DR KELL Monet Primary Care Unavailable GRILLIS ., DR CONNIE Monet Attending Unavaila ble GRILLIAme ., DR CONNIE Monet Consulting Unavaila ble GRILLIAme ., DR CONNIE Monet Admitting Unavaila ble ZIEBIRMA, DR CHRISTOFER Hernandez Consulting Unavailable TAWNYA, DR KELL Monet Primary Care Unavailable FISHER ., DR CINTRON Attending Unavailable FISHER ., DR CINTRON Consulting Unavailable FISHER ., DR CINTRON Admitting Unavailable BOWLING, DR KELL Monet Admitting Unavailable BOWLING, DR KELL Monet Attending Unavailable BOWLING, DR KELL Monet Consulting Unavailable TAWNYA, DR KELL Monet Primary Care Unavailable Kell Bowling Unavailable Kell Bowling Primary Care Unavailable Margaux Estrada Attending Unavailable Margaux Estrada Admitting Unavailable MINA PINEDO Attending Unavailable BLAS FRAZIER Attending Unavailable Gurinder FERMIN, Luis Stallings Attending Unavailable Gurinder FERMIN, Luis Stallings Attending Unavailable Chata Paeg Attending Unavailable Chata Page Attending Unavailable Kell Bowling MD Primary Care Provider Allergies Allergy Classification Reported Allergen(s) Allergy Type Date of Onset Reaction(s) Facility (2 sources) patient allergy list reviewed by nurse or physicia Propensity to adverse reactions 9 Comment:Done [facility] Other (2 sources) Allergies Reconciled Propensity to adverse reactions Unknown [facility] Other Medications Current Medications Medication Drug Class(es) Dates Sig (Normalized) Sig (Original) Amoxicillin (1 source) Penicillin-class Antibacterial Amoxicillin Active Atenolol / Chlorthalidone (18 sources) Thiazide-like Diuretic, beta-Adrenergic Daron Start: 05-15-2024 take 1 tablet by mouth once daily Atenolol-Chlortha lidone 50-25 mg tablet Active 0 .ROUTE .COMPLEX May 15, 2024 12:22pm TAKE 1 TABLET BY MOUTH EVERY DAY Start: 02-15-2024 take 1 tablet by kasi th once daily atenolol-chlorthalidone (Tenoretic) 50-2 5 MG tablet Take 1 tablet by mouth Daily 02/15/2024 Active Start: 11-20-2023 End: 05-15-2024 take 1 tablet by mouth once daily Atenolol-Chlorthalidone 50-25 mg tablet Discontinued 0 .ROUTE .COMPLEX November 20, 2023 12:09pm May 15, 2024 12:23pm TAKE 1 TABLET BY MOUTH EVERY DAY Start: 11-20-2023 take 1 tablet by kasi th once daily Atenolol-Chlorthalidone Active 0 .ROUTE .COMPLEX November 20, 2023 1:09pm TAKE 1 TABLET BY MOUTH EVERY DAY Start: 11-20-2023 End: 11-20-2023 take 1 tablet by mouth once daily Atenolol-Chlorthalidone 50-25 mg tablet Discontinued 1 TAB PO Daily November 19, 2023 11:00pm November 20, 2023 12:09pm Start: 08-22-2022 take 1 tablet by kasi th once daily Atenolol-Chlorthalidone 50-25mg atenoloL-chlorthalidone 50-25mg, 1 (one) Tablet daily # 90, 08/22/2022, Ref. x1. Active oral daily for 90 *Pick strength-form from [employer] for eRX* Aug, Active Start: 02-05-2021 atenolol-chlor thalidone 50-25 MG tablet B Complex-C (b complex-vitamin c) tablet (3 sources) take 1 tablet by mouth in the morning B Complex-C (b complex-vitamin c) tablet Take 1 tablet by mouth in the morning. Active benzonatate 200 mg oral capsule (1 source) Non-narcotic Antitussive Start: 025 take 1 capsule by mouth three times daily as needed for cough Benzonatate 200 mg capsule Active 200 MG PO Three times daily as needed for cough 30 October 16, 2024 12:00am cyclobenzaprine hydrochloride 10 mg oral tablet (7 sources) Muscle Relaxant Start: 022 take 1 tablet by mouth three times daily as needed cyclobenzaprine 10mg cyclobenzaprine 10mg, 1 (one) Tablet three times daily, as needed # 30, 05/31/2022, No Refill. Active oral three times daily, as needed for 0 *Reorder from [employer] for eRx and Interaction Alerts* May, Active Start: 02-10-2021 End: 05-16-2021 take 1 tablet by mouth at bedtime as needed for muscle spasms cyclobenzaprine 10 MG tablet Indications: Chronic pain syndrome , Myofascial pain Take 1 tablet by mouth at bedtime as needed for Muscle spasms. 30 tablet 2 04/16/2021 05/16/2021 Active cycloSPORINE 0.5 mg/ml ophthalmic suspension (3 sources) Calcineurin Inhibitor Immunosuppressant Start: 01-11-2024 take 1 drop(s) into the eye(s) in the morning Restasis 0.05 % ophthalmic emulsion Administer 1 drop into both eyes in the morning and 1 drop before bedtime. 01/11/2024 Active docosahexaenoic acid 120 mg / eicosapentaenoic acid 180 mg oral capsule (3 sources) omega-3 1000 MG capsule capsule Take by mouth Active doxepin hydrochloride 10 mg oral capsule (5 sources) Tricyclic Antidepressant Start: 09-16-2024 take 2 capsules by mouth once daily Doxepin 10 mg capsule Active 20 MG PO Daily September 16, 2024 12:00am Start: 03-18-2024 take 1 capsule by mo uth once daily at bedtime doxepin (SINEquan) 10 MG capsule Indications: JOSÉ (obstructive sleep apnea) , Hypersomnia , PLMD (periodic limb movement disorder) TAKE 1 TO 2 CAPSULES BY MOUTH EVERY DAY AT BEDTIME 180 capsule 1 03/18/2024 Active 10 ml methocarbamol 100 mg/ml injection (6 sources) Muscle Relaxant Start: 09-16-2024 inject 1 g by intramuscular injection every eight hours Methocarbamol (Robaxin) 100 mg/mL solution Active 1 GM IM Every 8 hours September 16, 2024 12:00am Start: 02-13-2024 take 1 tablet by kasi th in the morning, then take 1 tablet by mouth in the evening, then take 1 tablet by mouth at bedtime methocarbamol (Robaxin) 750 MG tablet Take 750 mg by mouth in the morning and 750 mg in the evening and 750 mg before bedtime. 02/13/2024 Active Robaxin Active Multiple Vitamins-Minerals (PRESERVISION AREDS PO) (5 sources) Multiple Vitamins-Minerals (PRESERVISION AREDS PO) Take by mouth 2 times daily. 0 Active oseltamivir 75 mg oral capsule (1 source) Neuraminidase Inhibitor Start : 10-16 take 1 capsule by mouth twice daily Oseltamivir (Tamiflu) 75 mg capsule Active 75 MG PO Twice daily 10 October 16, 2024 12:00am tadalafil 20 mg oral tablet (4 sources) Phosphodiesterase 5 Inhibitor Start : 09-16 take 1 tablet by mouth once as needed Tadalafil 20 mg tablet Active 20 MG PO Once September 16, 2024 12:00am [employer] tablet prn; Note: Source Status: Taking; Provider: Tawnya Castorena ( ) Cialis 20 MG 1 t ablet prn Active 60 actuat testosterone 20.25 mg/actuat topical gel (10 sources) Androgen Start: 01-30-2024 Testosterone 2 0.25 MG/ACT (1.62%) gel APPLY 2 PUMPS TO CLEAN, DRY, INTACT SKIN EVERY MORNING 01/30/2024 Active Start: 05-31-2022 AndroGel 1.62 % (20.25mg/1.25 gr AndroGeL 1.62 % (20.25mg/1.25 gr, 2 pumps daily , 05/31/2022, No Refill. Active transdermal for 0 *Reorder from [employer] for eRx and Interaction Alerts* May, Active Start: 01-09-2021 Testosterone 2 0.25 MG/ACT (1.62%) Gel gel APPLY 1 PUMP TOPICALLY EACH MORNING 0 01/09/2021 Active Testosterone (Androgel) 1.62 % (20.25 mg/1.25 gram) gel in packet (2 sources) Start: 09-16-2024 Testosterone (Androgel) 1.62 % (20.25 mg/1.25 gram) gel in packet Active 1 PACKET TRANSDERML Daily September 16, 2024 12:00am apply to max area of ONE upper arem and shoulder tiZANidine 4 mg oral tablet (2 sources) Central alpha-2 Adrenergic Agonist Start: 09-16-2024 take 1 tablet by mouth once daily at bedtime as needed Tizanidine 4 mg tablet Active 4 MG PO Daily at bedtime as needed September 16, 2024 12:00am zonisamide 100 mg oral capsule (2 sources) Anti-epileptic Agent Start: 09-16-2024 take 1 capsule by mouth once daily Zonisamide 100 mg capsule Active 100 MG PO Daily September 16, 2024 12:00am Completed/Discontinued Medications Medication Drug Class(es) Dates Sig (Normalized) Sig (Original) diclofenac sodium 75 mg delayed release oral tablet (20 sources) Nonsteroidal Anti-inflammatory Drug Start: 12-25-2023 End: 08-20-2024 take 1 tablet by mouth twice daily Diclofenac Sodium 75 mg tablet,delayed release (DR/EC) Discontinued 0 .ROUTE .COMPLEX 60 June 18, 2024 7:24am August 20, 2024 8:25am TAKE 1 TABLET BY MOUTH TWICE A DAY Start: 02-05-2021 End: 12-25-2023 take 1 tablet by mouth twice daily Diclofenac Sodium 75 mg tablet,delayed release (DR/EC) Discontinued 75 MG PO Twice daily December 24, 2023 11:00pm December 25, 2023 11:59am DULoxetine 30 mg delayed release oral capsule (20 sources) Serotonin and Norepinephrine Reuptake Inhibitor Start: 12-20-2023 End: 07-05-2024 take 1 capsule by mouth once daily Duloxetine 30 mg capsule,delayed release(DR/EC) Discontinued 0 .ROUTE .COMPLEX 90 June 13, 2024 9:26am July 05, 2024 8:07pm TAKE 1 CAPSULE BY MOUTH EVERY DAY Start: 12-20-2023 End: 12-20-2023 take 1 capsule by mouth once daily Duloxetine 30 mg capsule,delayed release(DR/EC) Discontinued 30 MG PO Daily December 19, 2023 11:00pm December 20, 2023 8:30am Start: 02-18-2021 End: 03-20-2021 take 1 capsule [...] mouth daily. 30 capsule 2 03/17/2021 Active 10 ml lidocaine hydrochloride 20 mg/ml injection (2 sources) Antiarrhythmic, Amide Local Anesthetic Start: 04-16-2021 End: 04-16-2021 lidocaine 2 % injection 100 mg Start: 04-16-2021 End: 04-16-2021 lidocaine 2 % injection 100 mg lidocaine 1% (PF) (XYLOCAINE MPF) 10 mL syringe (2 sources) Start: 02-16-2021 End: 02-24-2021 lidocaine 1% (PF) (XYLOCAINE MPF) 10 mL syringe phentermine hydrochloride 37.5 mg oral tablet (4 sources) Sympathomimetic Amine Anorectic Start: 09-16-2024 End: 09-16-2024 take 1 tablet by mouth once daily before breakfast Phentermine 37.5 mg tablet Discontinued 37.5 MG PO Daily September 16, 2024 12:00am September 16, 2024 3:23pm [employer] tablet before breakfast Orally Once a day; Note: Source Status: Refill; Refills: 0; Qty: 30 Tablet; Provider: Tawnya Monet Start: 08-31-2023 take 1 tablet by kasi th once daily before breakfast Adipex-P 37.5 MG 1 tablet before breakfast Orally Once a day for 30 days Aug, Active Start: 08-01-2023 take 1 tablet by kasi th once daily before breakfast Adipex-P 37.5 MG 1 tablet before breakfast Orally Once a day for 30 days Jul, Active Problems Active Problems Problem Classification Problem Date Documented Da te Episodic/Chronic Deficiency and other anemia (3 sources) Anemia; Translations: [Anemia, unspecified] 11-06-2023 Episodic Deficiency and other anemia (3 sources) Iron deficiency anemia; Translations: [Iron deficiency anemia, unspecified] 12-01-2023 Episodic Disorders of lipid metabolism (2 sources) Mixed hyperlipidemia; Translations: [Mixed hyperlipidemia] Chronic Essential hypertension (4 sources) Essential hypertension; Translations: [Essential (primary) hypertension] Onset: 03-17-2021 03-17-2021 Chronic Influenza (2 sources) Influenza due to Influenza A virus; Translations: [Influenza due to other identified influenza virus with other respiratory manifestations] 10-16-2024 Episodic Other endocrine disorders (4 sources) Testicular hypofunction; [...] conditions (not mental disorders or infectious disease) (7 sources) Encounter for screening for malignant neoplasm of prostate; Translations: [Blood chemistry abnormal] Onset: 05-30-2022 09-16-2024 Episodic Residual codes; unclassified (6 sources) Obstructive sleep apnea syndrome; Translations: [Obstructive sleep apnea (adult) (pediatric)] Onset: 05-15-2024 05-15-2024 Chronic Residual codes; unclassified (1 source) Obstructive sleep apnea (adult) (pediatric) Chronic Residual codes; unclassified (4 sources) Periodic limb movement disorder; Translations: [Periodic limb movement disorder] Onset: 05-15-2024 05-15-2024 Chronic Residual codes; unclassified (4 sources) Hypersomnia; Translations: [Hypersomnia, unspecified] Onset: 05-15-2024 05-15-2024 Chronic Residual codes; unclassified (1 source) Drug [...] Myofascial pain; Translations: [Myalgia, other site] Episodic Other lower respiratory disease (4 sources) Snoring; Translations: [Snoring] Onset: 05-15-2024 05-15-2024 Episodic Unclassified (1 source) Low back pain, unspecified M54.50 Results Test Name Value Interpretation Reference Range Facility No Panel InformationOrdered By: Geovanna Clarke on 10-16-2024 Quick Strep (POC) [facility] Urology Office/Clinic Noteon 07-31-2024 Urology Office/Clinic Note Urology Office/Clinic Note Chief Complaint Patient in office for f/u with blood work HPI Staff Manuel is a 54 yo male pt here today for a 1 yr f/u w/Testosterone Levels. Previous DX: male hypogonadism, BPH, impotence *Cialis 10mg PRN, Androgel 2 pumps qd. Patient had BW done at [facility] on 07/29/24 and 07/30/24. PSA was 0.65; Testosterone was 464. Patient is still using the Androgel as prescribed. States he has been doing well. Patient was not able to provide a urine sample. Patient denies any urinary issues or concerns. History of Present Illness Tests reviewed: reviewed UA and Labs: Hct, PSA, LFTS, T I have reviewed the previous health record [...] HPI. Physical Exam Vitals & Measurements HR: 61(Peripheral) BP: 143/96 General Appearance: alert, no distress, well nourished, well developed male. Assessment/Plan 54 yo M pt here today for a 1 yr f/u with Testosterone level. Off note, Cr 1.50 (Previous 1.58), eGFR 49 (Previous 50) from PCP. No hx kidney stones. 1. Male hypogonadism (E29.1: Testicular hypofunction) Testosterone: 01/06/23 - 487 06/20/22 - 410 01/19/22 - 324 07/19/21 - 754 07/20/23 - 366 ([id number]) 07/29/24 - 464 07/30/24 - Hgb 16.5 & Hct 47.0 Reviewed labs with pt. Labs appropriate to continue current dosage. Pt using Androgel 2 pumps daily. Pt states that he feels fine with his current dose of AndroGel and would like to keep it how it is. Follow up in 1 yr w/Testosterone. All questions/concerns were discussed. Pt to call the office if he encounters any issues prior. -Will order Testosterone. PSA and Hct to be done with wellness. 2. BPH (benign prostatic hyperplasia) (N40.0: Benign prostatic hyperplasia without lower urinary tract symptoms) IPSS 1(3) PSA (monitored by hospital wellness/PCP) 06/02 - 0.86 07/05/23 - 0.78 07/30/24 - 0.65 Pt denies any bothersome urinary sxs. PSA decreased from prior, remains low. Pt states that moody of his wellness labs have dropped, has not noticed any changes in his lifestyle. -Cont monitoring while on TRT 3. Impotence (N52.9: Male erectile dysfunction, unspecified) MAKI 19(19). Taking Cialis 10 mg PRN. Occasionally uses 20 mg. No side effects or issues, happy with current results. Declined further tx changes at this time -Cont Cialis as above -Heart healthy lifestyle Follow-up With When Contact Information Camilo FERMIN, Chata Inman, URL, URO In 1 year Additional Instructions: w/Testosterone Patient Education Erectile Dysfunction I, Meme Haley, personally scribed for Dr. Page on 07/31/2024 08:26:19. . Documentation recorded by the scribe, Meme Haley, accurately reflects the services(s) I performed and decisions made by me. Authenticated by Dr. Page on 07/31/2024 08:32:41. Problem List/Past Medical History Ongoing BPH (benign prostatic hyperplasia) Impotence Male hypogonadism Historical No qualifying data Procedure/Surgical History Hernia (07/12/2023), Vasectomy (08/31/2007), Arthroscopy. Medications atenolol-chlorthalid one 50 mg-25 mg Tab Cialis 10 mg Tab, 10 mg= 1 tab(s), Oral, As Directed, PRN, 11 refills Cymbalta, Oral diclofenac sodium 75 mg Oral EC Tab doxepin 10 mg Cap testosterone 20.25 mg/1.25 g (1.62%) transdermal gel, 2 pump, Topical, qAM, 11 refills Allergies No Known Allergies Social History Alcohol Current. Beer, Wine, Liquor. 1-2 times per week., 07/31/2024 Substance Abuse Never., 07/31/2024 Tobacco Never (less than 100 in lifetime) Tobacco Use:., 07/31/2024 Family History Diabetes mellitus type 2: Father. Kidney stone: Father. Immunizations Vaccine Date Status Comments SARS-CoV-2 (COVID-19) mRNA BNT-162b2 vax 07/21/2022 Recorded SARS-CoV-2 (COVID-19) mRNA-1273 vaccine 08/03/2021 Recorded SARS-CoV-2 (COVID-19) mRNA BNT-162b2 vax 10/21/2020 Recorded SARS-CoV-2 (COVID-19) mRNA BNT-162b2 vax 09/30/2020 Recorded influenza virus vaccine, inactivated 06/2020 Recorded diphtheria/pertussis , acel/tetanus adult 05/09/2017 Given diphtheria/pertussis , acel/tetanus adult 02/08/2013 Gi (more content not included)... Normal [facility] Comment on above: Result Comment: Elec tronically Signed By: Camilo FERMIN, Chata Inman\.br\Date and Time Signed: 07/31/24 08:33 EST Basophils Auto (Bld) [#/Vol] on 07-30-2024 Basophils (Bld) [#/Vol] Automated basoph il count 0.0-0.1 [facility] Basophils/100 WBC Auto (Bld) on 07-30-2024 Basophils/100 WBC (Bld) Automated basophil % 0. 2-2.0 [facility] Cholesterol in LDL Calc [Mas s/Vol]on 07-30-2024 Cholesterol in LDL [Mass/Vol] Cholesterol in LDL [Mass/volume] in Serum or Plasma by calculation [facility] Comment on above: <100 mg/dl [id number] 0-129 mg/dl NEAR OR ABOVE [id number] mg/dl BORDERLINE [id number] mg/dl HIGH>190 mg/dl VERY HIGH Cholesterol in VLDL Calc [Ma ss/Vol]on 07-30-2024 Cholesterol in VLDL [Mass/Vol] Cholesterol in VLDL [Mass/volume] in Serum or Plasma by calculation [facility] Eosinophils/100 WBC Auto (Bl d)on 07-30-2024 Eosinophils/100 WBC (Bld) Automated eosi nophil % Low 0.9-7.0 [facility] Erythrocyte distribution wid th Auto (RBC) [Ratio]on 07-30-2024 Erythrocyte distribution width (RBC) [Ratio] Erythrocyte distribution width [Ratio] by Automated count 11.0-15.0 [facility] Estimated glomerular filtrat ion rate (GFR) non- Americanon 07-30-2024 GFR/1.73 sq M.predicted among non-blacks MDRD (S/P/Bld) [Vol rate/Area] Estimated glomerular filtration rate (GFR) non- Low >=60 mL/min/1.73m 2 [facility] Globulin Calc (S) [Mass/Vol] on 07-30-2024 Globulin (S) [Mass/Vol] Serum globulin measurement by calculation (mass/volume) [facility] Glucose mean value [Mass/vol ume] in Blood Estimated from glycated hemoglobinon 07-30-2024 Average glucose Estimated from glycated hemoglobin (Bld) [Mass/Vol] Glucose mean value [Mass/volume] in Blood Estimated from glycated hemoglobin [facility] Hematocrit Auto (Bld) [Volum e fraction]on 07-30-2024 Hematocrit (Bld) [Volume fraction] Hematocrit [Volume Fraction] of Blood by Automated count 42.0-54.0 [facility] Hemoglobin [Mass/volume] in Bloodon 07-30-2024 Hemoglobin (Bld) [Mass/Vol] Hemoglobin [Mass/volume] in Blood 14.0-18.0 [facility] Laboratory - Chemistry and C hemistry - challengeon 07-30-2024 Albumin [Mass/Vol] 3.5 g/dL 3.4-5.0 [facility] ALP [Catalytic activity/Vol] 76 U/L 46-116 [facility] ALT [Catalytic activity/Vol] 69 U/L High 16-63 [facility] AST [Catalytic activity/Vol] 22 U/L 15-37 [facility] Bilirubin [Mass/Vol] 1.1 mg/dL High 0.2-1.0 [facility] Calcium [Mass/Vol] 9.3 mg/dL 8.5-10.1 [facility] Chloride [Moles/Vol] 99 mmol/L 98-107 [facility] Cholesterol [Mass/Vol] 171 mg/dL <=200 [facility] Cholesterol in HDL [Mass/Vol] 56 mg/dL 40-60 [facility] Comment on above: > or =60 mg/dl - LOW CARDIOVASCULAR RISK<40 mg/dl - HIGH CARDIOVASCULAR RISK CO2 [Moles/Vol] 28.8 mmol/L 21.0-32.0 [facility] Creatinine [Mass/Vol] 1.50 mg/dL High 0.70-1.30 [facility] GFR/1.73 sq M.predicted MDRD (S/P/Bld) [Vol rate/Area] 59 mL/min/{1.73_m2} Low >=60 mL/min/1.73m 2 [facility] Glucose [Mass/Vol] 96 mg/dL 74-106 [facility] Potassium [Moles/Vol] 3.4 mmol/L Low 3.5-5.1 [facility] Protein [Mass/Vol] 7.3 g/dL 6.4-8.2 [facility] Sodium [Moles/Vol] 137 mmol/L 136-145 [facility] Triglyceride [Mass/Vol] 68 mg/dL <=150 F [facility] TSH Qn 2.119 m[IU]/L 0.358-3.740 [facility] Urea nitrogen [Mass/Vol] 27.0 mg/dL High 7.0-18.0 [facility] Urea nitrogen/Creatinine [Mass ratio] 18.0 mg/mg [facility] Laboratory - Hematology and Cell countson 07-30-2024 HbA1c (Bld) [Mass fraction] 5.6 % 4.5-6.2 [facility] Comment on above: ADA RECOMMENDED LIMI T 4.0 - 6.0ADA THERAPEUTIC TARGET < 7.0ACTION SUGGESTED> 7.0 Immature granulocytes/100 WBC (Bld) 0.6 % High 0.0-0.5 [facility] Leukocytes [#/volume] correc josé for nucleated erythrocytes in Blood by Automated counon 07-30-2024 WBC corrected for nucl RBC Auto (Bld) [#/Vol] Leukocytes [#/volume] corrected for nucleated erythrocytes in Blood by Automated coun High 4.0-11.0 [facility] Lymphocytes Auto (Bld) [#/Vo l]on 07-30-2024 Lymphocytes (Bld) [#/Vol] Lymphocytes [#/volume] in Blood by Automated count High 1.2-3.8 [facility] Lymphocytes/100 WBC Auto (Bl d)on 07-30-2024 Lymphocytes/100 WBC (Bld) Lymphocytes/10 0 leukocytes in Blood by Automated count 20.5-60.0 [facility] MCH Auto (RBC) [Entitic mass ]on 07-30-2024 MCH (RBC) [Entitic mass] MCH [Entitic ma ss] by Automated count 25.9-34.0 [facility] MCHC Auto (RBC) [Mass/Vol]on 07-30-2024 MCHC (RBC) [Mass/Vol] MCHC [Mass/volume] by Automated count 29.9-35.2 [facility] MCV Auto (RBC) [Entitic vol] on 07-30-2024 MCV (RBC) [Entitic vol] MCV [Entitic vol ume] by Automated count 80.0-94.0 [facility] Monocytes Auto (Bld) [#/Vol] on 07-30-2024 Monocytes (Bld) [#/Vol] Automated blood monocyte count High 0.3-0.8 [facility] Monocytes/100 WBC Auto (Bld) on 07-30-2024 Monocytes/100 WBC (Bld) Automated monocyte % 1. 7-12.0 [facility] Neutrophils Auto (Bld) [#/Vo l]on 07-30-2024 Neutrophils (Bld) [#/Vol] Neutrophils [#/volume] in Blood by Automated count High 1.4-6.5 [facility] Neutrophils/100 WBC Auto (Bl d)on 11-19-2024 Neutrophils/100 WBC (Bld) Automated neut rophil % 43.0-75.0 [facility] No Panel Informationon 07-30 Eosinophils # (Auto) 0.1 10 3/uL 0.0-0.7 [facility] Immature Granulocyte # (Auto) 0.09 10 3/uL High 0.00-0.03 [facility] Prostate Specific Antigen Screen 0.65 ng/mL <=4.00 [facility] Platelet mean volume Auto (B ld) [Entitic vol]on 07-30-2024 Platelet mean volume (Bld) [Entitic vol] Platelet mean volume [Entitic volume] in Blood by Automated count Low 9.5-13.5 [facility] Platelets Auto (Bld) [#/Vol] on 07-30-2024 Platelets (Bld) [#/Vol] Platelets [#/vol ume] in Blood by Automated count 150-450 [facility] RBC Auto (Bld) [#/Vol]on RBC (Bld) [#/Vol] Erythrocytes [#/volume] in Blood by Automated count 4.70-6.10 [facility] Serum or plasma albumin/glob ulin mass ratioon 07-30-2024 Albumin/Globulin [Mass ratio] Serum or plasma albumin/globulin mass ratio [facility] Serum or plasma anion gap de terminationon 07-30-2024 Anion gap [Moles/Vol] Serum or plasma anion gap determination [facility] Serum or plasma total choles terol/high density lipoprotein (HDL) cholesterol mass spencer 07-30-2024 Cholesterol.total/Cholest corbin in HDL [Mass ratio] Serum or plasma total cholesterol/high density lipoprotein (HDL) cholesterol mass rat [facility] Comment on above: 3.3 - 4.4 LOW RISK4. 4 - 7.1 AVERAGE RISK7.1 - 11.0 MODERATE RISK>11.0 HIGH RISK Hematocrit Auto (Bld) [Volum e fraction]on 07-29-2024 Hematocrit (Bld) [Volume fraction] Hematocrit [Volume Fraction] of Blood by Automated count 42.0-54.0 [facility] No Panel Informationon 07-29 Testosterone Level 464 ng/dL [phone] [facility] Comment on above: Adult male reference interval is based on a population ofhealthy nonobese males (BMI <30) between 19 and 39 yearsold. Joni et.al. JCEM 2017,102;[id number]. PMID:[id number].Performed at: [facility] [id number] Director: Checo Pitts PhD, Phone: [phone] Albumin [Mass/volume] in Ser um or Plasmaon 12-26-2023 Albumin [Mass/Vol] 3.7 g/dL 2.9-4.4 [facility] Basophils Auto (Bld) [#/Vol] on 12-26-2023 Basophils (Bld) [#/Vol] 0.1 10 3/uL 0.0-0.1 [facility] Basophils/100 WBC Auto (Bld) on 12-26-2023 Basophils/100 WBC (Bld) 0.7 % 0.2-2.0 [facility] Eosinophils/100 WBC Auto (Bl d)on 12-26-2023 Eosinophils/100 WBC (Bld) 3.0 % 0.9-7.0 [facility] Erythrocyte distribution wid th Auto (RBC) [Ratio]on 12-26-2023 Erythrocyte distribution width (RBC) [Ratio] 21.4 % 11.0-15.0 [facility] Hematocrit Auto (Bld) [Volum e fraction]on 12-26-2023 Hematocrit (Bld) [Volume fraction] 47.9 % 42.0-54.0 [facility] Hemoglobin [Mass/volume] in Bloodon 12-26-2023 Hemoglobin (Bld) [Mass/Vol] 15.7 g/dL 14.0-18.0 [facility] IgA [Mass/volume] in Serum o r Plasmaon 12-26-2023 IgA [Mass/Vol] 232 mg/dL 90-386 [facility] IgG [Mass/volume] in Serum o r Plasmaon 12-26-2023 IgG [Mass/Vol] 1144 mg/dL 603-1613 [facility] IgM [Mass/volume] in Serum o r Plasmaon 12-26-2023 IgM [Mass/Vol] 79 mg/dL 20-172 [facility] Bradley 12-26-2023 L Specimen: Received: 12/27/23 Status: KELSIE Johnson Num: [id number] Spec Type: Impression Subm Dr: Margaux Estrada MD Tissues: PATHPER Procedures: PATHREVIEW Age/ Patient Sex Location Account Attending Physician Manuel Burgos 53/M LABELL [id number] Margaux Estrada MD SPEC NUM: RECD: 12/27/23 STATUS: KELSIE JOHNSON NUM: [id number] MAYRA: 12/26/[address]: Margaux Estrada MD ENTERED: 12/27/23 [facility] DR: Chase Oropeza SPEC TYPE: Impression DEPT: KELSIE Jackson ENTERED BY: [id number] RECV BY: [id number] ORDERED: PATHREVIEW ORDERED: PATHREVIEW Pathologist Review Occasional atypical lymphocytes are noted. Atypical infection should be ruled out. Specimen: Received: 12/27/23 Status: KELSIE Johnson Num: [id number] Spec Type: Impression Subm Dr: Margaux Estrada MD Tissues: PATHPER Procedures: PATHREVIEW Patient: Manuel Burgos [id number] (Continued) Signed (signature on file) Elroy Hutchins MD 12/27/23 1523 Normal [facility] - Chemistry and C hemistry - challengeon 12-26-2023 LDH [Catalytic activity/Vol] 211 U/L 85-227 [facility] Protein [Mass/Vol] 0.2 g/dL Not Observed [facility] - Hematology and Cell countson 12-26-2023 Immature granulocytes/100 WBC (Bld) 0.2 % 0.0-0.5 [facility] Leukocytes [#/volume] correc josé for nucleated erythrocytes in Blood by Automated counon 12-26-2023 WBC corrected for nucl RBC Auto (Bld) [#/Vol] 9.7 10 3/uL 4.0-11.0 [facility] Lymphocytes Auto (Bld) [#/Vo l]on 12-26-2023 Lymphocytes (Bld) [#/Vol] 3.5 10 3/uL 1.2-3.8 [facility] Lymphocytes/100 WBC Auto (Bl d)on 12-26-2023 Lymphocytes/100 WBC (Bld) 36.4 % 20.5-60.0 [facility] MCH Auto (RBC) [Entitic mass ]on 12-26-2023 MCH (RBC) [Entitic mass] 27.5 pg 25.9-34.0 [facility] MCHC Auto (RBC) [Mass/Vol]on 12-26-2023 MCHC (RBC) [Mass/Vol] 32.8 g/dL 29.9-35.2 [facility] MCV Auto (RBC) [Entitic vol] on 12-26-2023 MCV (RBC) [Entitic vol] 84.0 fL 80.0-94.0 [facility] Monocytes Auto (Bld) [#/Vol] on 12-26-2023 Monocytes (Bld) [#/Vol] 0.7 10 3/uL 0.3-0.8 [facility] Monocytes/100 WBC Auto (Bld) on 12-26-2023 Monocytes/100 WBC (Bld) 7.5 % 1.7-12.0 [facility] Neutrophils Auto (Bld) [#/Vo l]on 12-26-2023 Neutrophils (Bld) [#/Vol] 5.1 10 3/uL 1.4-6.5 [facility] Neutrophils/100 WBC Auto (Bl d)on 12-26-2023 Neutrophils/100 WBC (Bld) 52.2 % 43.0-75.0 [facility] No Panel Informationon 12-25 Eosinophils # (Auto) 0.3 10 3/uL 0.0-0.7 [facility] Immature Granulocyte # (Auto) 0.02 10 3/uL 0.00-0.03 [facility] Protein Electrophoresis Note Comment . [facility] Comment on above: Protein electrophore sis scan will follow via computer,mail, or transfill technician delivery.Performed at: [address] [id number] Director: Checo Pitts PhD, Phone: [phone] Platelet mean volume Auto (B ld) [Entitic vol]on 12-26-2023 Platelet mean volume (Bld) [Entitic vol] 10.0 fL 9.5-13.5 [facility] Platelets Auto (Bld) [#/Vol] on 12-26-2023 Platelets (Bld) [#/Vol] 269 10 3/uL 150-450 [facility] Protein [Mass/volume] in Ser um or Plasmaon 12-26-2023 Protein [Mass/Vol] 6.9 g/dL 6.0-8.5 [facility] RBC Auto (Bld) [#/Vol]on RBC (Bld) [#/Vol] 5.70 10 6/uL 4.70-6.10 [facility] Serum globulin measurement ( mass/volume)on 12-26-2023 Globulin (S) [Mass/Vol] 3.2 g/dL 2.2-3.9 [facility] Serum or plasma albumin/glob ulin mass ratioon 12-26-2023 Albumin/Globulin [Mass ratio] 1.2 {ratio} 0.7-1.7 [facility] Serum or plasma alpha 1 glob ulin measurement by electrophoresis (mass/volume)on 12-26-2023 Alpha 1 globulin Elph [Mass/Vol] 0.2 g/dL 0.0-0.4 [facility] Serum or plasma alpha 2 glob ulin measurement by electrophoresis (mass/volume)on 12-26-2023 Alpha 2 globulin Elph [Mass/Vol] 0.7 g/dL 0.4-1.0 [facility] Serum or plasma beta globuli n measurement by electrophoresis (mass/volume)on 12-26-2023 Beta globulin Elph [Mass/Vol] 1.5 g/dL 0.7-1.3 [facility] Serum or plasma gamma globul in measurement by electrophoresis (mass/volume)on 12-26-2023 Gamma globulin Elph [Mass/Vol] 0.9 g/dL 0.4-1.8 [facility] Serum or plasma immunoelectr ophoresis interpretationon 12-26-2023 Interpretation IEP [Interp] Comment . [facility] Comment on above: Immunofixation shows IgG monoclonal protein with lambdalight chain specificity. Basophils Auto (Bld) [#/Vol] on 12-19-2023 Basophils (Bld) [#/Vol] 0.1 10 3/uL 0.0-0.1 [facility] Basophils/100 WBC Auto (Bld) on 12-19-2023 Basophils/100 WBC (Bld) 1.1 % 0.2-2.0 [facility] Eosinophils/100 WBC Auto (Bl d)on 12-19-2023 Eosinophils/100 WBC (Bld) 3.3 % 0.9-7.0 [facility] Erythrocyte distribution wid th Auto (RBC) [Ratio]on 12-19-2023 Erythrocyte distribution width (RBC) [Ratio] 21.6 % 11.0-15.0 [facility] Hematocrit Auto (Bld) [Volum e fraction]on 12-19-2023 Hematocrit (Bld) [Volume fraction] 45.7 % 42.0-54.0 [facility] Hemoglobin [Mass/volume] in Bloodon 12-19-2023 Hemoglobin (Bld) [Mass/Vol] 14.9 g/dL 14.0-18.0 [facility] Iron binding capacity [Mass/ volume] in Serum or Plasmaon 12-19-2023 Iron binding capacity [Mass/Vol] 370.0 ug/dL 250.0-450.0 [facility] Iron saturation [Mass Fracti on] in Serum or Plasmaon 12-19-2023 Iron saturation [Mass fraction] 37.6 % [facility] Laboratory - Chemistry and C hemistry - challengeon 12-19-2023 Ferritin [Mass/Vol] 31.0 ng/mL 26.0-388.0 [facility] Iron [Mass/Vol] 139.0 ug/dL 65.0-175.0 [facility] Laboratory - Hematology and Cell countson 12-19-2023 Immature granulocytes/100 WBC (Bld) 0.5 % 0.0-0.5 [facility] Leukocytes [#/volume] correc josé for nucleated erythrocytes in Blood by Automated counon 12-19-2023 WBC corrected for nucl RBC Auto (Bld) [#/Vol] 9.4 10 3/uL 4.0-11.0 [facility] Lymphocytes Auto (Bld) [#/Vo l]on 12-19-2023 Lymphocytes (Bld) [#/Vol] 3.3 10 3/uL 1.2-3.8 [facility] Lymphocytes/100 WBC Auto (Bl d)on 12-19-2023 Lymphocytes/100 WBC (Bld) 34.5 % 20.5-60.0 [facility] MCH Auto (RBC) [Entitic mass ]on 12-19-2023 MCH (RBC) [Entitic mass] 26.8 pg 25.9-34.0 [facility] MCHC Auto (RBC) [Mass/Vol]on 12-19-2023 MCHC (RBC) [Mass/Vol] 32.6 g/dL 29.9-35.2 [facility] MCV Auto (RBC) [Entitic vol] on 12-19-2023 MCV (RBC) [Entitic vol] 82.2 fL 80.0-94.0 [facility] Monocytes Auto (Bld) [#/Vol] on 12-19-2023 Monocytes (Bld) [#/Vol] 0.9 10 3/uL 0.3-0.8 [facility] Monocytes/100 WBC Auto (Bld) on 12-19-2023 Monocytes/100 WBC (Bld) 9.2 % 1.7-12.0 [facility] Neutrophils Auto (Bld) [#/Vo l]on 12-19-2023 Neutrophils (Bld) [#/Vol] 4.9 10 3/uL 1.4-6.5 [facility] Neutrophils/100 WBC Auto (Bl d)on 12-19-2023 Neutrophils/100 WBC (Bld) 51.4 % 43.0-75.0 [facility] No Panel Informationon 12-18 Eosinophils # (Auto) 0.3 10 3/uL 0.0-0.7 [facility] Immature Granulocyte # (Auto) 0.05 10 3/uL 0.00-0.03 [facility] Miscellaneous Test COMMENT . [facility] Comment on above: Test Ordered: [id number] Hgb Fractionation CascadeHgb F 0.0 % CB Reference Range: 0.0-2.0Hgb A 97.8 % CB Reference Range: 96.4-98.8Hgb A2 2.2 % CB Reference Range: 1.8-3.2Hgb S 0.0 % CB Reference Range: 0.0Interpretation: Comment CB Reference Range: .Normal hemoglobin present; no hemoglobin variant or betathalassemia identified.Note: Alpha thalassemia may not be detected by the HgbFractionation [place] panel. If alpha thalassemia issuspected, [facility] offers Alpha-Thalassemia DNA Analysis(#[id number]).Performed at: [address] [id number] Director: Checo Pitts PhD, Phone: [phone] Platelet mean volume Auto (B ld) [Entitic vol]on 12-19-2023 Platelet mean volume (Bld) [Entitic vol] 9.4 fL 9.5-13.5 [facility] Platelets Auto (Bld) [#/Vol] on 12-19-2023 Platelets (Bld) [#/Vol] 299 10 3/uL 150-450 [facility] RBC Auto (Bld) [#/Vol]on RBC (Bld) [#/Vol] 5.56 10 6/uL 4.70-6.10 [facility] Basophils Auto (Bld) [#/Vol] on 11-08-2023 Basophils (Bld) [#/Vol] 0.1 10 3/uL 0.0-0.1 [facility] Basophils/100 WBC Auto (Bld) on 11-08-2023 Basophils/100 WBC (Bld) 0.9 % 0.2-2.0 [facility] Eosinophils/100 WBC Auto (Bl d)on 11-08-2023 Eosinophils/100 WBC (Bld) 3.2 % 0.9-7.0 [facility] Erythrocyte distribution wid th Auto (RBC) [Ratio]on 11-08-2023 Erythrocyte distribution width (RBC) [Ratio] 17.4 % 11.0-15.0 [facility] Hematocrit Auto (Bld) [Volum e fraction]on 11-08-2023 Hematocrit (Bld) [Volume fraction] 43.5 % 42.0-54.0 [facility] Hemoglobin [Mass/volume] in Bloodon 11-08-2023 Hemoglobin (Bld) [Mass/Vol] 13.2 g/dL 14.0-18.0 [facility] Laboratory - Chemistry and C hemistry - challengeon 11-08-2023 Cobalamin (Vitamin B12) [Mass/Vol] 986.0 pg/mL 193.0-986.0 [facility] Ferritin [Mass/Vol] 14.0 ng/mL 26.0-388.0 [facility] Laboratory - Hematology and Cell countson 11-08-2023 Immature granulocytes/100 WBC (Bld) 0.2 % 0.0-0.5 [facility] Leukocytes [#/volume] correc josé for nucleated erythrocytes in Blood by Automated counon 11-08-2023 WBC corrected for nucl RBC Auto (Bld) [#/Vol] 10.0 10 3/uL 4.0-11.0 [facility] Lymphocytes Auto (Bld) [#/Vo l]on 11-08-2023 Lymphocytes (Bld) [#/Vol] 3.6 10 3/uL 1.2-3.8 [facility] Lymphocytes/100 WBC Auto (Bl d)on 11-08-2023 Lymphocytes/100 WBC (Bld) 35.5 % 20.5-60.0 [facility] MCH Auto (RBC) [Entitic mass ]on 11-08-2023 MCH (RBC) [Entitic mass] 23.9 pg 25.9-34.0 [facility] MCHC Auto (RBC) [Mass/Vol]on 11-08-2023 MCHC (RBC) [Mass/Vol] 30.3 g/dL 29.9-35.2 [facility] MCV Auto (RBC) [Entitic vol] on 11-08-2023 MCV (RBC) [Entitic vol] 78.7 fL 80.0-94.0 [facility] Monocytes Auto (Bld) [#/Vol] on 11-08-2023 Monocytes (Bld) [#/Vol] 0.9 10 3/uL 0.3-0.8 [facility] Monocytes/100 WBC Auto (Bld) on 11-08-2023 Monocytes/100 WBC (Bld) 8.5 % 1.7-12.0 [facility] Neutrophils Auto (Bld) [#/Vo l]on 11-08-2023 Neutrophils (Bld) [#/Vol] 5.2 10 3/uL 1.4-6.5 [facility] Neutrophils/100 WBC Auto (Bl d)on 11-08-2023 Neutrophils/100 WBC (Bld) 51.7 % 43.0-75.0 [facility] No Panel Informationon 11-08 Eosinophils # (Auto) 0.3 10 3/uL 0.0-0.7 [facility] Folate 19.60 ng/mL 8.60-58.90 [facility] Immature Granulocyte # (Auto) 0.02 10 3/uL 0.00-0.03 [facility] Platelet mean volume Auto (B ld) [Entitic vol]on 11-08-2023 Platelet mean volume (Bld) [Entitic vol] 9.4 fL 9.5-13.5 [facility] Platelets Auto (Bld) [#/Vol] on 11-08-2023 Platelets (Bld) [#/Vol] 384 10 3/uL 150-450 [facility] RBC Auto (Bld) [#/Vol]on RBC (Bld) [#/Vol] 5.53 10 6/uL 4.70-6.10 [facility] Pre-Certification Formon Pre-Certification Form [id number] #1.00TIFF Normal [facility] TESTOSTERONE, TOTALon 2022 Testosterone [Mass/Vol] 487 ng/dL Normal 264-916 [facility] Comment on above: Result Comment: Adul t male reference interval is based on a population of healthy nonobese males (BMI <30) between 19 and 39 years old. Joni, et.al. JCEM 2017,102;3654-2738. PMID: [id number]. Performed By: #### T ESTTOT #### [facility] [address] [place] [address] Dr. Mychal Oropeza US SINGLE QUAD RT [...] by: CHRISTOFER SCHAEFFER Date: 2022-08-25 07:07 Normal [facility] TESTOSTERONE, TOTALon 2021 Testosterone [Mass/Vol] 410 ng/dL Normal 264-916 [facility] Comment on above: Result Comment: Adul t male reference interval is based on a population of healthy nonobese males (BMI <30) between 19 and 39 years old. bouchra Quinones.al. JCEM 2017,102;3158-1011. PMID: [id number]. Performed By: #### T ESTTOT #### [facility] [address] [place] [address] Dr. Mychal Oropeza CBC AUTO DIFFon 05-27-2022 BASO # 0.1 103/ul Normal 0.0-0.1 [facility] Comment on above: Performed By: #### C BC #### [facility] [address] [place] [address] Dr. Mychal Oropeza Basophils/100 WBC (Bld) 0.9 % Normal 0.2-2.0 [facility] Comment on above: Performed By: #### C BC #### [facility] [address] [place] [address] Dr. Mychal Oropeza EO # 0.7 103/ul Normal 0.0-0.7 [facility] Comment on above: Performed By: #### C BC #### [facility] [address] [place] [address] Dr. Mychal Oropeza Eosinophils/100 WBC (Bld) 6.7 % Normal 0.9-7.0 [facility] Comment on above: Performed By: #### C BC #### [facility] [address] [place] [address] Dr. Mychal Oropeza Erythrocyte distribution width (RBC) [Ratio] 12.8 % Normal 11.0-15.0 [facility] Comment on above: Performed By: #### C BC #### [facility] [address] [place] [address] Dr. Mychal Oropeza Hematocrit (Bld) [Volume fraction] 46.9 % Normal 42.0-54.0 [facility] Comment on above: Performed By: #### C BC #### [facility] [address] [place] [address] Dr. Mychal Oropeza Hemoglobin (Bld) [Mass/Vol] 16.2 g/dL Normal 14.0-18.0 [facility] Comment on above: Performed By: #### C BC #### [facility] [address] [place] [address] Dr. Mychal Oropeza IG # 0.04 10e3/ul Critically high 0.00-0.03 [facility] Comment on above: Performed By: #### C BC #### [facility] [address] [place] [address] Dr. Mychal Oropeza IG % 0.4 % Normal 0.0-0.5 [facility] Comment on above: Performed By: #### C BC #### [facility] [address] [place] [address] Dr. Mychal Oropeza LYMPH # 4.1 103/ul Critically high 1.2-3.8 [facility] Comment on above: Performed By: #### C BC #### [facility] [address] [place] [address] Dr. Mychal Oropeza Lymphocytes/100 WBC (Bld) 37.7 % Normal 20.5-60.0 [facility] Comment on above: Performed By: #### C BC #### [facility] [address] [place] [address] Dr. Mychal Oropeza MANUAL DIFF REQ NO Normal [facility] Comment on above: Performed By: #### C BC #### [facility] [address] [place] [address] Dr. Mychal Oropeza MCH (RBC) [Entitic mass] 30.7 pg Normal 25.9-34.0 [facility] Comment on above: Performed By: #### C BC #### [facility] [address] [place] [address] Dr. Mychal Oropeza MCHC (RBC) [Mass/Vol] 34.5 g/dL Normal 29.9-35.2 [facility] Comment on above: Performed By: #### C BC #### [facility] [address] [place] [address] Dr. Mychal Oropeza MCV (RBC) [Entitic vol] 88.8 fL Normal 80.0-94.0 [facility] Comment on above: Performed By: #### C BC #### [facility] [address] [place] [address] Dr. Mychal Oropeza MONO # 0.9 103/ul Critically high 0.3-0.8 [facility] Comment on above: Performed By: #### C BC #### [facility] [address] [place] [address] Dr. Mychal Oropeza Monocytes/100 WBC (Bld) 8.1 % Normal 1.7-12.0 [facility] Comment on above: Performed By: #### C BC #### [facility] [address] [place] [address] Dr. Mychal Oropeza NEUT # 5.1 103/ul Normal 1.4-6.5 [facility] Comment on above: Performed By: #### C BC #### [facility] [address] [place] [address] Dr. Mychal Oropeza Neutrophils/100 WBC (Bld) 46.2 % Normal 43.0-75.0 [facility] Comment on above: Performed By: #### C BC #### [facility] [address] [place] [address] Dr. Mychal Oropeza Platelet mean volume (Bld) [Entitic vol] 9.7 fL Normal 9.5-13.5 [facility] Comment on above: Performed By: #### C BC #### [facility] [address] [place] [address] Dr. Mychal Oropeza PLT 308 103/ul Normal 150-450 [facility] Comment on above: Performed By: #### C BC #### [facility] [address] [address] [address] Mychal Oropeza RBC 5.28 106/ul Normal 4.70-6.10 [facility] Comment on above: Performed By: #### C BC #### [facility] [address] [address] [address] Mychal Oropeza WBC 10.9 103/ul Normal 4.0-11.0 [facility] Comment on above: Performed By: #### C BC #### [facility] [address] [address] [address] Mychal Oropeza GLYCOHEMOGLOBIN A1Con 2021 ADA RECOMMENDATION SEE BELOW Normal [facility] Comment on above: Result Comment: ADA RECOMMENDED LIMIT 4.0 - 6.0 ADA THERAPEUTIC TARGET < 7.0 ACTION SUGGESTED > 7.0 Performed By: #### A 1C #### [facility] [address] [place] [address] Dr. Mychal Oropeza Glucose [Mass/Vol] 108 mg/dL Normal [facility] Comment on above: Performed By: #### A 1C #### [facility] [address] [place] [address] Dr. Mychal Oropeza HbA1c (Bld) [Mass fraction] 5.4 % Normal 4.5-6.2 [facility] Comment on above: Performed By: #### A 1C #### [facility] [address] [place] [address] Dr. Mychal Oropeza LIPID PROFILEon 05-27-2022 CHOL-HDL RATIO NORM SEE BELOW Normal [facility] Comment on above: Result Comment: 3.3 - 4.4 LOW RISK 4.4 - 7.1 AVERAGE RISK 7.1 - 11.0 MODERATE RISK >11.0 HIGH RISK Performed By: #### T SH, LIPID, CMP #### [facility] [address] [address] [address] Mychal Oropeza Cholesterol [Mass/Vol] 207 mg/dL Critically high <=200 [facility] Comment on above: Performed By: #### T SH, LIPID, CMP #### [facility] [address] [address] [address] Mychal Oropeza Cholesterol in HDL [Mass/Vol] 47 mg/dL Normal 40-60 [facility] Comment on above: Performed By: #### T SH, LIPID, CMP #### [facility] [address] [address] [address] Mychal Oropeza Cholesterol in LDL [Mass/Vol] 122.4 mg/dL Normal [facility] Comment on above: Performed By: #### T SH, LIPID, CMP #### [facility] [address] [address] [address] Mychal Oropeza Cholesterol.total/Cholest corbin in HDL [Mass ratio] 4.4 {ratio} Normal [facility] Comment on above: Performed By: #### T SH, LIPID, CMP #### [facility] [address] [address] [address] Mychal Oropeza HDL NORMAL > or = 60 mg/dl - LOW CARDIOVASCULAR RISK <40 mg/dl - HIGH CARDIOVASCULAR RISK Normal [facility] Comment on above: Performed By: #### T SH, LIPID, CMP #### [facility] [address] [address] [address] Mychal Oropeza LDL CALC NORMAL SEE BELOW Normal [facility] Comment on above: Result Comment: <100 mg/dl OPTIMAL 100 - 129 mg/dl NEAR OR ABOVE OPTIMAL 130 - 159 mg/dl BORDERLINE HIGH 160 - 189 mg/dl HIGH >190 mg/dl VERY HIGH Performed By: #### T SH, LIPID, CMP #### [facility] [address] [address] [address] Mychal Oropeza Triglyceride [Mass/Vol] 188 mg/dL Critically high <=150 [facility] Comment on above: Performed By: #### T SH, LIPID, CMP #### [facility] [address] [address] [address] Mychal Oropeza VLDL CALC 37.6 mg/dL Normal [facility] Comment on above: Performed By: #### T SH, LIPID, CMP #### [facility] [address] [address] [address] Mychal Oropeza PROF 14(COMP METB)on 022 Albumin [Mass/Vol] 3.9 g/dL Normal 3.4-5.0 [facility] Comment on above: Performed By: #### T SH, LIPID, CMP #### [facility] [address] [address] [address] Mychal Oropeza Albumin/Globulin [Mass ratio] 1.1 {ratio} Normal [facility] Comment on above: Performed By: #### T SH, LIPID, CMP #### [facility] [address] [address] [address] Mychal Oropeza ALP [Catalytic activity/Vol] 77 U/L Normal 46-116 [facility] Comment on above: Performed By: #### T SH, LIPID, CMP #### [facility] [address] [address] [address] Mychal Oropeza ALT [Catalytic activity/Vol] 56 U/L Normal 16-63 [facility] Comment on above: Performed By: #### T SH, LIPID, CMP #### [facility] [address] [address] [address] Mychal Oropeza Anion gap [Moles/Vol] 8.6 mmol/L Normal [facility] Comment on above: Performed By: #### T SH, LIPID, CMP #### [facility] [address] [address] [address] Mychal Oropeza AST [Catalytic activity/Vol] 30 U/L Normal 15-37 [facility] Comment on above: Performed By: #### T SH, LIPID, CMP #### [facility] [address] [address] [address] Mychal Oropeza Bilirubin [Mass/Vol] 0.6 mg/dL Normal 0.2-1.0 [facility] Comment on above: Performed By: #### T SH, LIPID, CMP #### [facility] [address] [address] [address] Mychal Oropeza Calcium [Mass/Vol] 9.2 mg/dL Normal 8.5-10.1 [facility] Comment on above: Performed By: #### T SH, LIPID, CMP #### [facility] [address] [address] [address] Mychal Oorpeza Chloride [Moles/Vol] 100 mmol/L Normal 98-107 [facility] Comment on above: Performed By: #### T SH, LIPID, CMP #### [facility] [address] [place] [address] Dr. Mychal Oropeza CO2 [Moles/Vol] 30.0 mmol/L Normal 21.0-32.0 [facility] Comment on above: Performed By: #### T SH, LIPID, CMP #### [facility] [address] [place] [address] Dr. Mychal Oropeza Creatinine [Mass/Vol] 1.37 mg/dL Critically high 0.70-1.30 [facility] Comment on above: Performed By: #### T SH, LIPID, CMP #### [facility] [address] [place] [address] Dr. Mychal Oropeza EGFR-AF CHILEAN >60 Normal >=60 [facility] Comment on above: Performed By: #### T SH, LIPID, CMP #### [facility] [address] [place] [address] Dr. Mychal Oropeza EGFR-NON AF CHILEAN 55 mL/min/1.73m2 Critically low >=60 [facility] Comment on above: Performed By: #### T SH, LIPID, CMP #### [facility] [address] [place] [address] Dr. Mychal Oropeza Globulin (S) [Mass/Vol] 3.7 g/dL Normal [facility] Comment on above: Performed By: #### T SH, LIPID, CMP #### [facility] [address] [place] [address] Dr. Mychal Oropeza Glucose [Mass/Vol] 111 mg/dL Critically high 74-106 [facility] Comment on above: Performed By: #### T SH, LIPID, CMP #### [facility] [address] [place] [address] Dr. Mychal Oropeza Potassium [Moles/Vol] 3.6 mmol/L Normal 3.5-5.1 [facility] Comment on above: Performed By: #### T KADIE LIPID, CMP #### [facility] [address] [address] [address] Mychal Oropeza Protein [Mass/Vol] 7.6 g/dL Normal 6.4-8.2 [facility] Comment on above: Performed By: #### T KADIE, LIPID, CMP #### [facility] [address] [address] [address] Mychal Oropeza Sodium [Moles/Vol] 135 mmol/L Critically low 136-145 [facility] Comment on above: Performed By: #### T KADIE LIPID, CMP #### [facility] [address] [place] [address] Dr. Mychal Oropeza Urea nitrogen [Mass/Vol] 14.0 mg/dL Normal 7.0-18.0 [facility] Comment on above: Performed By: #### T KADIE LIPID, CMP #### [facility] [address] [place] [address] Dr. Mychal Oropeza Urea nitrogen/Creatinine [Mass ratio] 10.2 mg/mg Normal [facility] Comment on above: Performed By: #### T KADIE LIPID, CMP #### [facility] [address] [place] [address] Dr. Mychal Oropeza TSHon 05-27-2022 TSH 2.907 uIU/mL Normal 0.358-3.740 [facility] Comment on above: Performed By: #### T SH, LIPID, CMP #### [facility] [address] [place] [address] Dr. Mychal Oropeza TESTOSTERONE, TOTALon 2021 Testosterone [Mass/Vol] 324 ng/dL Normal 264-916 [facility] Comment on above: Result Comment: Adul t male reference interval is based on a population of healthy nonobese males (BMI <30) between 19 and 39 years old. bouchra Quinones.al. JCEM 2017,102;7705-2809. PMID: [id number]. Performed By: #### T ESTTOT #### [facility] [address] [address] [address] Mychal Oropeza XR SPINE CERVICAL WITH [...] fair flexion. No instability is noted. Normal [facility] XR SPINE LUMBAR W BENDINGon 02-10-2021 [...] good range of motion without instability. Normal [facility] XR SPINE LUMBAR W BENDINGOrd ered By: Maik Barbosa on 02-10-2021 IMPRESSION: Lumbar spine visually is fairly well preserved. There is no evidence of fracture, listhesis, significant disc space narrowing or major degenerative changes. There is a very good range of motion without instability. [facility] EXAM: XR SPINE LUMBAR W BENDING HISTORY: [...] motion. There is no listhesis or instability. [facility] User, Interfaces - 02/10/2021 4:52 PM EDT [...] very good range of motion without instability. [facility] Vital Signs Date Time Vital Sign Value Performing Clinician Facility 10-16-2024 14:24-0500 Body height 170.18 cm [facility] 10-16-2024 14:24-0500 Body mass index (BMI) [Ratio] 35.2 kg/m2 [facility] 10-16-2024 14:24-0500 Body temperature 98.7 [degF] [facility] 10-16-2024 14:24-0500 Body weight 102.2 kg [facility] 10-16-2024 14:24-0500 Diastolic blood pressure 70 mm[Hg] [facility] 10-16-2024 14:24-0500 Heart rate 86 /min [facility] 10-16-2024 14:24-0500 SaO2% (BldA) [Mass fraction] 96 % [facility] 10-16-2024 14:24-0500 Systolic blood pressure 116 mm[Hg] [facility] 09-16-2024 15:18-0500 Body height 170.18 cm [facility] 09-16-2024 15:18-0500 Body mass index (BMI) [Ratio] 34.7 kg/m2 [facility] 09-16-2024 15:18-0500 Body weight 100.69 kg [facility] 09-16-2024 15:18-0500 Diastolic blood pressure 74 mm[Hg] [facility] 09-16-2024 15:18-0500 Heart rate 70 /min [facility] 09-16-2024 15:18-0500 Systolic blood pressure 106 mm[Hg] [facility] 05-15-2024 15:36-0400 Body height 172.7 cm Blas Searsmor NET [employer] Work Phone: [facility] 05-15-2024 15:36-0400 Diastolic blood pressure 84 mm[Hg] Blas Gillmor NET [employer] Work Phone: [facility] 05-15-2024 15:36-0400 Heart rate 70 /min Blas Gillmor NET M[employer]ER Work Phone: [facility] 05-15-2024 15:36-0400 SaO2% (BldA) [Mass fraction] 94 % Blas Gillmor NET M[employer]ER Work Phone: [facility] 05-15-2024 15:36-0400 Systolic blood pressure 122 mm[Hg] Blas Gillmor NET MENDER Work Phone: [facility] 08-31-2023 15:30-0500 Body height 170.18 cm Kell Bowling Other [employer] Other 08-31-2023 15:30-0500 Body mass index (BMI) [Ratio] 33.04 kg/m2 Kell Bowling Other [employer] Other 08-31-2023 15:30-0500 Body weight 95.71 kg Kell Bowling Other [employer] Other 08-31-2023 15:30-0500 Diastolic blood pressure 77 mm[Hg] Kell Bowling Other [employer] Other 08-31-2023 15:30-0500 Systolic blood pressure 119 mm[Hg] Kell Bowling Other [employer] Other 08-01-2023 08:30-0500 Body height 170.18 cm Kell Bowling Other [employer] Other 08-01-2023 08:30-0500 Body mass index (BMI) [Ratio] 35.14 kg/m2 Kell Bowling Other [employer] Other 08-01-2023 08:30-0500 Body weight 101.79 kg Kell Bowling Other [employer] Other 08-01-2023 08:30-0500 Diastolic blood pressure 82 mm[Hg] Kell Bowling Other [employer] Other 08-01-2023 08:30-0500 Systolic blood pressure 118 mm[Hg] Kell Bowling Other [employer] Other 04-16-2021 12:05-0400 Diastolic blood pressure 97 mm[Hg] Maik Barbosa MD Work Phone: [facility] 04-16-2021 12:05-0400 Heart rate 54 /min Maik Barbosa MD Work Phone: [facility] 04-16-2021 12:05-0400 Respiratory rate 16 /min Maik Barbosa MD Work Phone: [facility] 04-16-2021 12:05-0400 SaO2% (BldA) [Mass fraction] 95 % Maik Barbosa MD Work Phone: [facility] 04-16-2021 12:05-0400 Systolic blood pressure 142 mm[Hg] Maik Barbosa MD Work Phone: [facility] 03-17-2021 08:04-0400 Body height 170.2 cm Maik Barbosa MD Work Phone: [facility] 03-17-2021 08:04-0400 Body mass index (BMI) [Ratio] 34.61 kg/m2 Maik Barbosa MD Work Phone: [facility] 03-17-2021 08:04-0400 Body weight 100.25 kg Maik Barbosa MD Work Phone: [facility] 03-17-2021 08:04-0400 Diastolic blood pressure 93 mm[Hg] Maik Barbosa MD Work Phone: [facility] 03-17-2021 08:04-0400 Heart rate 74 /min Maik Barbosa MD Work Phone: [facility] 03-17-2021 08:04-0400 Respiratory rate 20 /min Maik Barbosa MD Work Phone: [facility] 03-17-2021 08:04-0400 SaO2% (BldA) [Mass fraction] 96 % Maik Barbosa MD Work Phone: [facility] 03-17-2021 08:04-0400 Systolic blood pressure 132 mm[Hg] Maik Barbosa MD Work Phone: [facility] 02-24-2021 12:02-0400 Diastolic blood pressure 100 mm[Hg] Maik Barbosa MD Work Phone: [facility] 02-24-2021 12:02-0400 Heart rate 55 /min Maik Barbosa MD Work Phone: [facility] 02-24-2021 12:02-0400 Respiratory rate 18 /min Maik Barbosa MD Work Phone: [facility] 02-24-2021 12:02-0400 SaO2% (BldA) [Mass fraction] 95 % Maik Barbosa MD Work Phone: [facility] 02-24-2021 12:02-0400 Systolic blood pressure 141 mm[Hg] Maik Barbosa MD Work Phone: [facility] 02-10-2021 11:46-0400 Body height 170.2 cm Maik Barbosa MD Work Phone: [facility] 02-10-2021 11:46-0400 Body mass index (BMI) [Ratio] 34.61 kg/m2 Maik Barbosa MD Work Phone: [facility] 02-10-2021 11:46-0400 Body weight 100.25 kg Maik Barbosa MD Work Phone: [facility] 02-10-2021 11:46-0400 Diastolic blood pressure 81 mm[Hg] Maik Barbosa MD Work Phone: [facility] 02-10-2021 11:46-0400 Heart rate 64 /min Maik Barbosa MD Work Phone: [facility] 02-10-2021 11:46-0400 Respiratory rate 18 /min Maik Barbosa MD Work Phone: [facility] 02-10-2021 11:46-0400 SaO2% (BldA) [Mass fraction] 99 % Maik Barbosa MD Work Phone: [facility] 02-10-2021 11:46-0400 Systolic blood pressure 121 mm[Hg] Maik Barbosa MD Work Phone: [facility] Encounters Encounter Date Encounter Type Care Provider Facility Start: 08-06-2025 ambulatory Chata Page Facility:Chiki Oropeza Start: 10-16-2024 End: 10-16-2024 ambulatory [facility] Work Phone: Start: 10-16-2024 End: 10-16-2024 Patient encounter procedure [facility] Physician [facility] Work Phone: Start: 09-16-2024 End: 09-16-2024 ambulatory [facility] Work Phone: Start: 09-16-2024 End: 09-16-2024 Encounter for general adult medical examination without abnormal findings [facility] Start: 09-16-2024 End: 09-16-2024 Patient encounter procedure [facility] Physician [facility] Work Phone: Start: 07-31-2024 End: 07-31-2024 ambulatory Chata Page Facility:P[facility] Oropeza Start: 07-30-2024 Non-patient / Non-visit [facility] Work Phone: Start: 07-30-2024 Patient encounter status [facility] Start: 07-29-2024 Non-patient / Non-visit [facility] Work Phone: Start: 07-22-2024 End: 07-22-2024 ambulatory Luis Fairchild MD Facility:[facility] Start: 05-15-2024 End: 05-15-2024 ambulatory BLAS FRAZIER Not Available Start: 05-15-2024 End: 05-15-2024 Office outpatient visit 25 minutes Blas Frazier [employer] Work Phone: [facility] [address] [facility] Comment on above: PLMD (periodic limb movement disorder) (Primary Dx); Hypersomnia; JOSÉ (obstructive sleep apnea); Snoring Start: 05-15-2024 End: 05-15-2024 Bamboo flowsheet Blas Frazier NET MENDER Work Phone: [facility] Start: 05-15-2024 End: 05-15-2024 Bamboo flowsheet Blas Searsestefany NET MENDER Work Phone: [facility] Start: 02-21-2024 End: 02-21-2024 ambulatory MINA PINEDO Not Available Start: 12-26-2023 End: 12-26-2023 ambulatory Kell Bowling Facility:[facility] Start: 12-26-2023 Non-patient / Non-visit [facility] Physician [facility] Work Phone: Start: 12-19-2023 Non-patient / Non-visit [facility] Physician [facility] Work Phone: Start: 11-20-2023 Non-patient / Non-visit [facility] Physician [facility] Work Phone: Start: 11-13-2023 End: 11-13-2023 ambulatory Luis Fairchild MD Facility:[facility] Start: 11-08-2023 Non-patient / Non-visit [facility] Physician [facility] Work Phone: Start: 10-02-2023 End: 10-02-2023 Patient encounter procedure [facility] Start: 08-31-2023 End: 08-31-2023 ambulatory Kell Bowling Other [employer] Other Start: 08-31-2023 Office outpatient vi sit 15 minutes Kell Bowling [facility] Start: 08-01-2023 End: 08-01-2023 ambulatory Kell Bowling Other [employer] Other Start: 08-01-2023 Encounter for genera l adult medical examination without abnormal findings Kell Bowling [facility] Start: 08-01-2023 Periodic preventive med est patient 40-64yrs Kell Bowling [facility] Start: 01-06-2023 End: 01-07-[address] [...] examination without abnormal findings DR KELL BOWLING [facility] Start: 05-27-2022 End: 05-28-[address] KELL BOWLING Facility:[facility] Start: 05-27-2022 End: 05-28-2022 Encounter for general adult medical examination without abnormal findings DR KELL BOWLING Facility:[facility] Start: 01-19-2022 End: 01-20-[address] KELL BOWLING Facility:[facility] Start: 04-16-2021 End: 04-16-2021 Patient encounter procedure Maik Barbosa MD Work Phone: [facility] Comment on above: Lumbar spondylosis ( Primary Dx); Chronic pain syndrome; Myofascial pain Start: 03-17-2021 End: 03-17-2021 Office outpatient visit 15 minutes Maik Barbosa MD Work Phone: [facility] Comment on above: Lumbar spondylosis ( Primary Dx); Lumbar radiculopathy; Spinal stenosis of cervical region; Chronic pain syndrome; Myofascial pain Start: 02-24-2021 End: 02-24-2021 Clinical Support Encounter [facility] Comment on above: Myofascial pain (Ara reji Dx) Start: 02-10-2021 End: 02-10-2021 Subsequent hospital visit by physician Maik Barbosa MD Work Phone: [facility] Comment on above: Arrived Start: 02-10-2021 End: 02-10-2021 Office outpatient new 45 minutes Maik Barbosa MD Work Phone: [facility] Comment on above: Myofascial pain (Ara reji Dx); Arthropathy of cervical facet joint; Spondylosis of lumbar region without myelopathy or radiculopathy; Chronic pain syndrome; Compliance with medication regimen Procedures Date Procedure Procedure Detail Performing Clinician Start: 10-16-2024 Quick Strep (POC) Start: 05-27-[address] KELL BOWLING Comment on above: Performed By: #### P [facility] #### [facility] [address] [place] [address] Dr. Mychal Oropeza Start: 02-10-2021 Radex spine lumbscrl compl w/bending views min 6 Maik Barbosa MD Work Phone: Plan of Treatment Date Care Activity Detail Author Start: 05-21-2021 End: 05-21-2021 Patient encounter procedure 05/21/2021 Office Visit Anesthesiology Pain Mgt Maik Barbosa MD [address] [place] [address] [facility] Start: 05-12-2021 Influenza vaccination A [facility] Start: 05-07-2021 End: 05-07-2021 Patient encounter procedure 05/07/2021 Office Visit Anesthesiology Pain t Maik Barbosa MD [address] [place] [address] [facility] Start: 05-03-2021 End: 05-03-2021 Patient encounter procedure 05/03/2021 Office Visit Anesthesiology Pain MgMaik Kinney MD [address] [place] [address] [phone] [facility] Start: 04-27-2021 End: 04-27-2021 Patient encounter procedure 04/27/2021 Office Visit Anesthesiology Pain MgMaik Kinney MD [address] [place] [address] [facility] Start: 03-17-2021 End: 03-17-2021 Patient encounter procedure 03/17/2021 Office Visit Anesthesiology Pain Mgt Maik Barbosa MD [address] [place] [address] [phone] [facility] Start: 02-24-2021 End: 02-24-2021 Patient encounter procedure 02/24/2021 Office Visit Anesthesiology Pain Mgt Maik Barbosa MD [address] [place] [address] [phone] [facility] Start: 02-10-2021 End: 02-11-2021 DRUG SCREEN MED COMPLIANCE I DRUG SCREEN MED COMPLIANCE I Lab Routine Compliance with medication regimen Expected: 02/10/2021, Expires: 02/11/2021 [facility] Comment on above: Expected: 02/10/2021 , Expires: 02/11/2021 Start: 02-08-2020 Prostate specific antigen measurement PROSTATE CANCER SCREENING DISCUSSION [facility] Start: 02-08-2020 Zoster vaccine hzv l wilmar for subcutaneous use ZOSTER (SHINGLES) VACCINE (1 of 2) [facility] Start: 2015 Colonoscopy COLORECTAL CAN CER SCREENING DISCUSSION [facility] Start: 2010 Fasting lipid profile LIPID SCREENIN G [facility] Start: 1989 Third diphtheria, tetanus and acellular pertussis (DTaP) vaccination TDAP (ADULT) [facility] Start: 02-08-1988 Tetanus vaccination TETANUS [facility] Start: 1985 HIV screening HIV SCREENING DISCUSSI ON [facility] Start: 1982 COVID-19 VACCINE (1) COVID-19 VACCIN E (1) [facility] Start: 1970 Hepatitis C antibody , confirmatory test HEPATITIS C VIRUS SCREENING [facility] Payers Date Payer Category Payer Self-pay 2023 Unknown [id number] 2022 Unknown 2022 Unknown [id number] 2019 Unknown [id number] 2018 Unknown [id number] 1. [id number] 1970 Unknown [id number] 2.16.84 [id number] 1970 Unknown [id number] 2.16.84 [id number] 1970 Unknown [id number] 2.16.84 [id number] 1970 Unknown [id number] 2.16.84 [id number] 1970 Unknown [id number] 2.16.84 [id number] 1970 Unknown [id number] 2.16.84 0.1.238767.3.579.2.593 1970 Unknown [id number] 2.16.84 0.1.541987.3.579.2.593 1970 Unknown [id number] 2.16.84 0.1.948153.3.579.2.593 1970 Unknown [id number] 2.16.84 0.1.369071.3.579.2.1259 1970 Unknown [id number] 2.16.84 0.1.321627.3.579.2.1259 1970 Unknown [id number] 2.16. [id number] 1970 Unknown [id number] 2.16. [id number] 1970 Unknown [id number] 2.16.8 40.1.777866.3.579.2.727 1970 Unknown [id number] 2.16.8 [id number] 1959 Self-pay [id number] Unknown [id number] 2.16.84 [id number] Unknown [id number] 2.16.8 [id number] Social History Date Type Detail Facility Start: 02-10-2021 End: 02-21-2024 Tobacco smoking status NHIS Never smoker [facility] Start: 02-10-2021 End: 02-21-2024 Tobacco use and exposure Never used [facility] Start: 02-10-2021 End: 05-15-2024 Alcohol intake Current drinker of alcohol (finding) [facility] Start: 02-10-2021 End: 05-15-2024 Alcohol intake [facility] Start: 02-10-2021 Alcohol Comment 5 beers/week [facility] Start: 1970 Sex Assigned At Not on file [facility] [employer] [facility] Start: 02-21-2024 End: 05-15-2024 Sex Assigned At [facility] Other Start: 1970 Sex Assigned At Male F [facility] Work Phone: Start: 09-16-2024 End: 10-16-2024 Sex Male (finding) [facility] Clinical Notes 02-10-2021 to 09-16-2024 Note Date & Type Note Facility 09-16-2024 Evaluation note Diagnosis Onset Date Resolution Elevated serum creatinine acute September 16 2:49pm Wellness examination acute Tj [email or web address] 2:49pm Influenza A acute October 16, 2024 2:16pm [facility] Work Phone: [phone]) 520-104411-20-2024 NotePatient Education Urology Erectile Dysfunction Erectile dysfunction (ED) is the inability to get or keep an erection in order to have sexual intercourse. ED is considered a symptom of an underlying disorder and is not considered a disease. ED mayinclude: ??? Inability to get an erection. ??? Lack of enough hardness of the erection to allow penetration. ??? Loss of erection before sex is finished. What are the causes? This condition may be caused by: ??? Physical causes, such as: ? Artery problems. This may include heart disease, high blood pressure, atherosclerosis, and diabetes. ? Hormonal problems, such as low testosterone. ? Obesity. ? Nerve problems. This may include back or pelvic injuries, multiple sclerosis, Parkinson's disease, spinal cord injury, and stroke. ??? Certain medicines, such as: ? Pain relievers. ? Antidepressants. ? Blood pressure medicines and water pills (diuretics). ? Cancer medicines. ? Antihistamines. ? Muscle relaxants. ??? Lifestyle factors, such as: ? Use of drugs such as marijuana, cocaine, or opioids. ? Excessive use of alcohol. ? Smoking. ? Lack of physical activity or exercise. ??? Psychological causes, such as: ? Anxiety or stress. ? Sadness or depression. ? Exhaustion. ? Fear about sexual performance. ? Guilt. What are the signs or symptoms? Symptoms of this condition include: ??? Inability to get an erection. ??? Lack of enough hardness of the erection to allow penetration. ??? Loss of the erection before sex is finished. ??? Sometimes having normal erections, but with frequent unsatisfactory episodes. ??? Low sexual satisfaction in either partner due to erection problems. ??? A curved penis occurring with erection. The curve may cause pain, or the penis may be too curved to allow for intercourse. ??? Never having nighttime or morning erections. How is this diagnosed? This condition is often diagnosed by: ??? Performing a physical exam to find other diseases or specific problems with the penis. ??? Asking you detailed questions about the problem. ??? Doing tests, such as: ? Blood tests to check for diabetes mellitus or high cholesterol, or to measure hormone levels. ? Other tests to check for underlying health conditions. ? An ultrasound exam to check for scarring. ? A test to check blood flow to the penis. ??? Doing a sleep study at home to measure nighttime erections. How is this treated? This condition may be treated by: ??? Medicines, such as: ? Medicine taken by mouth to help you achieve an erection (oral medicine). ? Hormone replacement therapy to replace low testosterone levels. ? Medicine that is injected into the penis. Your health care provider may instruct you how to give yourself these injections at home. ? Medicine that is delivered with a short applicator tube. The tube is inserted into the opening atthe tip of the penis, which is the opening of the urethra. A tiny pellet of medicine is put in the urethra. The pellet dissolves and enhances erectile function. This is also called MUSE (medicated urethral system for erections) therapy. ??? Vacuum pump. This is a pump with a ring on it. The pump and ring are placed on the penis and used to create pressure that helps the penis become erect. ??? Penile implant surgery. In this procedure, you may receive: ? An inflatable implant. This consists of cylinders, a pump, and a reservoir. The cylinders can be inflated with a fluid that helps to create an erection, and they can be deflated after intercourse. ? A semi-rigid implant. This consists of two silicone rubber rods. The rods provide some rigidity. They are also flexible, so the penis can both curve downward in its normal position and become straight for sexual intercourse. ??? Blood vessel surgery to improve blood flow to the penis. During this procedure, a blood vessel from a different part of the body is placed into the penis to allow blood to flow around (bypass) damaged or blocked blood vessels. ??? Lifestyle changes, such as exercising more, losing weight, and quitting smoking. Follow these instructions at home: Medicines ??? Take phek-[id number] and prescription medicines only as told by your health care provider. Do not increase the dosage without first discussing it with your health care provider. ??? If you are using self-injections, do injections as directed by your health care provider. Make sure you avoid any veins that are on the surface of the penis. After giving an injection, apply pressure to the injection site for 5 minutes. ??? Talk to your health care provider about how to prevent headaches while taking ED medicines. These medicines may cause a sudden headache due to the increase in blood flow in your body. General instructions ??? Exercise regularly, as directed by your health care provider. Work with your health care provider to lose weight, if needed. ??? Do not u (more content not included)...[facility]09-04-2024 History of Present illness Narrative* Blas Frazier NP - 05/15/2024 3:30 PM EDT Images from the original note were not included. No chief complaint on file. Patient is here today for follow-up of JOSÉ and sleep. I am following the plan of care established by the physician who is present in the office today. Florencio Jackson states he is doing well. The doxepin is helping him sleep better at night. He states he has been trying to go to bed sooner also. He did sleep 8 hours the other night and he has not done that in a long time. He is wearing his machine nightly. He denies any issues with it. The pressure change did not help so this was changed back. Past Medical History: Diagnosis Date Hypertension (CMS/HCC) Macular degeneration Sleep apnea Testosterone deficiency Past Surgical History: Procedure Laterality Date HERNIA REPAIR Family History Problem Relation Name Age of Onset Diabetes Father Heart disease Father Social History Tobacco Use Smoking status: Never Smokeless tobacco: Never Substance Use Topics Alcohol use: Yes Alcohol/week: 7.0 - 10.0 standard drinks of alcohol Types: 4 - 6 Cans of beer, 3 - 4 Standard drinks or equivalent per week Allergies: Patient has no known allergies. General: No fever or chills HEENT: No nasal congestion or runny nose Pulmonary: No shortness of breath or cough Cardiovascular: No chest pain or palpitations GI: No nausea or vomiting : No dysuria or hematuria Musculoskeletal: No new aches or pains or muscle weakness Infectious: no recurrent fevers or infections Dermatologic: No rashes or skin lesions Neurologic: No new headaches or dizziness Vitals: 05/15/24 1536 BP: 122/84 Pulse: 70 SpO2: 94% Body mass index is 33.45 kg/m . Neurologic exam: General: Normal body habitus, cooperative, pleasant Mental status: Awake, alert to person, place and time. Recent and remote memory are intact. Attention and concentration are normal. Fund of knowledge is appropriate for level of education. HEENT: NC/AT Mallampati of almost 4 with narrow oropharyngeal opening and macroglossia Cranial nerves: CN II: Visual johnston full to confrontation. No loss of vision CN III, IV, : pupils equal round and reactive to light. Extraocular movements intact. No ptosis present. CN V: Facial sensation is normal. CN VII: Full and symmetric facial movement. CN VIII: Hearing is normal CN IX and X: Palate elevates symmetrically. CN XI: Shoulder shrug is normal bilaterally. CN XII: Tongue is midline without atrophy or fasciculation. Speech: Clear and fluent no aphasia or dysarthria Pronator drift: Negative bilateral upper extremity Coordination: Intact, no signs of dysmetria Good finger to nose and rapid alternating movements Sensory: Sensation is intact to light, temperature and vibratory touch throughout four extremities. Motor: LUE 5/5 RUE 5/5 LLE 5/5 RLE 5/5 Tone: Physiologic, no tremor, bradykinesia or rigidity DTR: Bilateral Biceps 2/4 Bilateral BR 2/4 Bilateral Patellar 2/4 Gait: Normal to casual gait Romberg's x Review and summary of old records: Assessment/Plan Diagnoses and all orders for this visit: PLMD (periodic limb movement disorder) Hypersomnia JOSÉ (obstructive sleep apnea) Snoring 54-year-old male with a mild obstructive sleep apnea with an AHI of 10 and oxygen desaturation downto 90 percent leading to daytime hypersomnolence and snoring. He is more used to the machine and sleeping better with it. He did have 8 hours of sleep one night and has been years since this has happened. He is benefiting as he does sleep better with it on. Doxepin has been helpful. . Previous visit he did not feel he was getting enough air and was struggling to breathe. WE did change his pressure and then he called in and wanted it switched back and this was done. He was initially set at BiPAP of 12/8 cm of water and his AHI was much better on this pressure. He was changed to auto PAP at 8-20 cm of water with a pressure support of 4 after last visit, and I believe this was the pressure he did not like. On current download he is on set pressure of 15/8. Unclear if sleep clinic changed him to this. He does feel good on this pressure and is tolerating the mask. His AHI is higher than I would like and we will need to monitor this. I suspect his sleep apnea may be a little worse than what was tested in the clinic. He does have a periodic limb movement disorder as he had 312 limb movements on his PSG and 192 limb movements on his titration study. His is doing well on the Doxepin and this is controlling the PLMD. . The patient is compliant with the machine he is using it 93 percent of the time with 73 percent of the time greater than 4 hours with an average nightly usage of 5 hours and 31 minutes and residual AHI of 7.6. Previous AHI was 0.6 on a different pressure . . . Plan [place] Sleepiness Scale is 10 Compliance download reviewed and is compliant Compliance download at next visit, monitor AHI, may need to adjust pressures Continue doxepin 10mg 1-2 at bedtime Can consider Klonopin if the doxepin does not work The patient was counseled on proper sleep hygiene and adequate hours of sleep. He needs to allow more hours of sleep Wear the mask whenever sleeping The patient was counseled on the risks of stroke, NE, and sudden with JOSÉ, along with the need for compliance with the CPAP/BiPAP treatment. The patient was counseled on proper sleep hygiene and adequate hours of sleep. Return to clinic: 3-4 months documented in [facility] encounter[facility] [id number] Evaluation note* Encounter Date Diagnosis Assessment Notes Treatment Notes Treatment Clinical Notes Aug, Other obesity due to excess [...] index [BMI] 33.0-33.9, adult (ICD-10 - Z68.33) [facility] Other 11-21-2023 Evaluation note* Encounter Date Diagnosis [...] (ICD-10 - M54.50) Pt requests referral to [facility]. He hopes to lessen his use of NSAIDs to improve his renal function. Jul, Other chronic pain (ICD-10 - G89.29) Jul, JOSÉ (obstructive sleep apnea) (ICD-10 - G47.33) Form completed for [facility]. Jul, Class 2 obesity [...] to ER and Follow-up with me immediately. [facility] Other 08-06-2021 History and physical note* Maik [...] Shellie Alaniz RN RT - RT Ilia FRONT OFFICE ADMINISTRATOR - N/A WORKSHOP MANAGER - Aurelio Genao RN Site cleansed [...] and earlier as needed. [facility] Instructions* Patient Instructions* Geovanna Degroot RN - 04/16/2021 11:30 AM EDT [facility] WHAT TO EXPECT AFTER A PROCEDURE Follow up appointment: Call the office ([phone]) if you have any questions or develop [...] to call us at . Thank you, [facility] documented in this [facility]07[facility]07[facility] History of Present illness Narrative* Maik Barbosa MD - 03/17/2021 8:15 AM EDT HPI: Manuel Burgos Presents for evaluation and treatment of low [...] tried OTC tylenol, celebrex with somemild relief. [place] has helped in the past, but would [...] - 03/17/2021 8:15 AM EDT HPI: Manuel Burgos Presents for evaluation and treatment of low [...] Denies dysuria or frequency documented in this [facility]Tr[facility]07-07-2021 Instructions* Patient Instructions* Geovanna Degroot RN - [...] trapezius, and lumbar paraspinal documented in this [facility] History of Present illness Narrative* Madina Summers RN - 02/24/2021 11:15 AM EDT PHYSICIAN - Dr.Sharma TRAN - Kitty Martinez RN WORKSHOP MANAGER - [facility] Site cleansed with chloroprep. Procedure: cervical paraspinal [...] - 02/24/2021 11:15 AM EDT HPI: Manuel Burgos Presents for evaluation and treatment of low [...] Thank you for the referral of Manuel Burgos. As you know, he is a very [...] Social Gatherings with Friends and Family: Attends [employer] Services: Active Member of Clubs or Organizations: [...] tried OTC tylenol, celebrex with somemild relief. [place] has helped in the past, but would [...] Thank you for the referral of Manuel Burgos. As you know, he is a very [...] within the last year. documented in this [facility]06-[facility]-2021 Instructions* Patient Instructions* Geovanna Degroot RN - [...] read the attached handout from the [employer] [place] [employer] with guidelines and recommendations for [...] rare. [facility] Diagnosis Myofascial pain- Primary Mylagia and myositis, unspecified Arthropathy of cervical facet joint Cervical spondylosis without myelopathy Spondylosis of lumbar region without myelopathy or radiculopathy Lumbosacral spondylosis without myelopathy Chronic pain syndrome Compliance with medication regimen [facility]* Diagnosis Spondylosis of lumbar region without myelopathy or radiculopathy Lumbosacral spondylosis without myelopathy documented in this encounter [facility]* Diagnosis Myofascial pain- Primary Mylagia and myositis, unspecified documented in this encounter [facility]* Diagnosis Lumbar spondylosis- Primary Lumbosacral spondylosis without myelopathy Lumbar radiculopathy Thoracic or lumbosacral neuritis or radiculitis, unspecified Spinal stenosis of cervical region Spinal stenosis in cervical region Chronic pain syndrome Myofascial pain Mylagia and myositis, unspecified documented in this encounter [facility]* Diagnosis Lumbar spondylosis- Primary Lumbosacral spondylosis without myelopathy Chronic pain syndrome Myofascial pain Mylagia and myositis, unspecified documented in this encounter [facility] SystemEvaluation noteNo assessment information availableAvita Health [facility] Work Phone: Evaluation note* Diagnosis PLMD (periodic limb movement disorder)- Primary Periodic limb movement disorder Hypersomnia Hypersomnia, unspecified JOSÉ (obstructive sleep apnea) Obstructive sleep apnea (adult) (pediatric) Snoring Other dyspnea and respiratory abnormality documented [facility] this [facility]* Diagnosis Onset Date Resolution Status Admit Date Elevated serum creatinine acute September 16, 2024 2:49pm Wellness examination acute 2024 2:49pm [facility] Work Phone: History general Narrative - Reported* Type Description Date Medical History Elevated cholesterol with elevat ed triglycerides Medical History Low serum testosterone level Medical History Lumbar pain Medical History Hypertension Medical History Diverticulosis Surgical History R shoulder arthroscopy Surgical History FB R wrist Surgical History Umbilical hernia repair 07/12/20 23 Surgical History Colonoscopy 06/25/2023 Hospitalization History SEE SURGICAL HX [facility] Other Reason for Referral Status Reason Specialty Diagnoses / Procedures Referred By Contact Referred To Contact Auth Not Needed Diagnoses Myofascial pain Chronic pain syndrome Maik Barbosa MD [address] [place] [address] Scheduling Instructions Please PA and schedule: neck and back TPI (pt will need a [address] Barbosa) Reason *FU 08/08 chronic lumbar pain, would benefit from less NSAID use. Diagnosis 1 Low back pain, unspe cified (M54.50) Referral Organization [facility] xochitl Referring Provider First Name Kell Referring Provider Last Name Tawnya Referring Provider Specialty Family [facility] cine Referred Organization [facility] Referred Address [address], [place],[address] Referred Provider Specialty Pain Medicin e Referral Priority Routine General Notes Es Cooper 05:14:13 PM >received today, attachments made, notes locked, referral faxed Clinical Notes f: [id number] Summary Purpose Family History Relationship Condition Age at Onset Recorded Date/T mita father Hypertension Unknown Not Specified Unknown Relationship Condition Age at Onset Recorded Date/T mita father Hypertension Unknown mother Unknown Advance Directives Advance Directive Response Recorded Date/ Time Advance Directives No December 25, 2 024 3:00pm Advance Directive Response Recorded Date/ Time Advance Directives No December 25, 2 024 2:00pm Chief Complaint and Reason for Visit Chief Complaint 1 Month Follow Up Amb Documentation Chief Complaint Admit Date Wellness/go over results September 16 2:49pm Reason for Visit Admit Date Elevated serum creatinine September 16, 2 025 2:49pm Wellness examination September 16, 2024 2 :49pm Chief Complaint Admit Date Wellness/go over results September 16 2:49pm COVID-/Sore Throat October 16, 2024 2 :16pm Reason for Visit Admit Date Elevated serum creatinine September 16, 2 025 2:49pm Wellness examination September 16, 2024 2 :49pm Influenza A October 16, 2024 2 :16pm Additional Source Comments Reason for Visit (unrecogniz ed section and content) Reason Comments Pain Reason Comments Neck Pain Status Reason Specialty Diagnoses / Procedures Referre d By Contact Referred To Contact Closed Diagnoses Myofascial pain Chronic pain syndrome Maik Barbosa MD [address] [place] [address] Reason Comments Pain Specialty Diagnoses / Procedures Referred By Contac t Referred To Contact Diagnoses Lumbar facet arthropathy Maik Barbosa MD [address] [place] [address] Referral ID Status Reason Start Date Expiration Date Visits Re quested Visits Authorized [id number] Closed 04/14/2021 05/09/2022 1 1 (unrecognized sect ion and content) No Status Records FoundNo Status Records FoundNo Status Records FoundNo Status Records FoundNo Status Records FoundNo Status Records Found INFORMATION SOURCE (unrecogn ized section and content) DATE CREATED AUTHOR 05/10/2021 [facility] DATE CREATED AUTHOR AUTHOR'S ORGANIZ ATION 01/13/2023 [facility] DATE CREATED AUTHOR AUTHOR'S ORGANIZ ATION 12/28/2023 [facility] DATE CREATED AUTHOR AUTHOR'S ORGANIZ ATION 05/17/2024 [facility] EPIC DATE CREATED AUTHOR AUTHOR'S ORGANIZ ATION 07/30/2024 [facility] DATE CREATED AUTHOR AUTHOR'S ORGANIZ ATION 08/02/2024 [facility] Care Teams (unrecognized sec tion and content) Team Status: Active Member Role Status Dates Kell Bowling MD Primary Care Provider Active Team Status: Active Member Role Status Dates Kell Bowling MD Primary Care Provider Active Start: July 29, 2024 Chata Page MD Attending Provider Active Start : July 29, 2024 Team Status: Active Member Role Status Dates Kell Bowling MD Primary Care Provide r, Attending Provider Active Start: July 30, 2024 Team Status: Inactive Member Role Status Dates Kell Bowling MD Primary Care Provide r, Attending Provider Active Start: September 16, 2024 End: September 16, 2024 Nut Roaster Helper Relationship Specialty Start Date End Date Kell Bowling MD [address] [place] [address] [place] [address] PCP - General Family Medicine 02/10/21 Team Status: Inactive Member Role Status Dates [...] December 26, 2023 End: December 26, 2023 Nut Roaster Helper Relationship Specialty Start Date End Date Kell Bowling MD [address] [place] [facility] [place] [address] PCP - [facility] 02/21/24 Nut Roaster Helper Relationship Specialty Start Date End Date Kell Bowling MD [address] [place] [id number] PCP - [facility] 02/21/24 Team Status: Inactive Member Role Status Dates Kell Bowling MD Primary Care Provider Active Start: October 16, 2024 End: October 16, 2024 Geovanna lCarke APRN NET MENDER-C Attending Provider Active Start: October 16, 2024 End: October 16, 2024 Goals (unrecognized section and content) Goals may [...] BE BASED ON THE PRIMARY CLINICAL RECORDS. [employer] [facility]. provides no warranty or guarantee of the accuracy or completeness of information in this document.
[2024-11-08 13:40] LABS: Calcium 9.2 mg/dL (8.5-10.1); Carbon Dioxide 27.1 mmol/L (21.0-32.0); Chloride 101 mmol/L (98-107); Estimated GFR (African America >60 (>=60 mL/min/1.73m^2); Estimated GFR (Non-African Ame 56 (>=60 mL/min/1.73m^2); Glucose 92 mg/dL (74-106); Potassium 3.1 mmol/L (3.5-5.1); Sodium 137 mmol/L (136-145)
== END 2024-11-08 11:38 | disposition home or self-care (01) ==
LOC: LAB 11:38
PROVIDERS: PCP Family Medicine; Visit Provider Family Medicine
DX: R79.89 Other specified abnormal findings of blood chemistry (principal)
CPT/HCPCS: 36415; 80048

== ENCOUNTER 2025-03-24 11:58 | Day surgery (SDC) | payer BC, SELFPAY ==
--- OUTSIDE RECORDS SUMMARY | 2025-03-24 12:01 | XMS_ITS | Clinical Summary ---
Author Organization [employer]s tem Address [id number] [address] [place] [address] Care Team Providers Care Melt House Drag Operator Name Role Phone Kell Jack MD Primary Care Provider [phone] Allergies No known active allergies Medications atenoloL-chlort halidone (TENORETIC) 50-25 mg per tablet Take 1 tablet by mouth in the morning. 2 Active cyclobenzaprine (FLEXERIL) 10 mg tablet Take 1 tablet (10 mg total) by mouth daily as needed. 2 Active diclofenac (VOLTAREN) 75 mg EC tablet Take 1 tablet (75 mg total) by mouth in the morning and 1 tablet (75 mg total) before bedtime. 2 Active DULoxetine (CYMBALTA) 30 mg capsule Take 1 capsule (30 mg total) by mouth in the morning. 2 Active sildenafiL (VIAGRA) 100 mg tablet TAKE 1 TABLET BY MOUTH ONCE DAILY NEEDED FOR ERECTILE DYSFUNCTION 2 Active testosterone (ANDROGEL) 20.25 mg/1.25 gram (1.62 %) gel in metered-dose pump APPLY 2 PUMPS TO SKIN EVERY MORNING 2 Active omega 3-ewa-prh-fish oil (Fish OiL) 300-1,000 mg capsule Take by mouth. Activ e ascorbic acid, vitamin C, (ascorbic acid) 250 mg tablet,chewable Chew and swallow. Active ergocalciferol, vitamin D2, (VITAMIN D2 ORAL) Take by mouth. Activ e B-complex with vitamin C tablet Take 1 tablet by mouth in the morning. Active Active Problems Problem Noted Date Diagnosed Date Glaucoma 07/06/2022 Hypertension 07/06/2022 Family History Medical History Relation Name Comments Diabetes Father Heart disease Father Cancer Maternal Aunt No Known Problems Mother Cancer Paternal Grandfather Hodgkin's lymphoma Paternal Grandfather Cancer Paternal Grandmother Lung cancer Paternal Grandmother Relation Name Status Comments Father Alive Maternal Aunt Mother Paternal Grandfather Paternal Grandmother Social History Tobacco Use Types Packs/Day Years Used Date Smoking Tobacco: Never Smokeless Tobacco: Never Tobacco Cessation:Counseling Given: Not Answered Alcohol Use Standard Drinks/Week Comments Yes 0 (1 standard drink = 0.6 oz pur e alcohol) 5-7 WKLY of whatever Childcare Answer Date Recorded Childcare Unknown 02/20/2019 Employment Answer Date Recorded Employment Unknown 02/20/2019 Hunger Screening Answer Date Recorded Within the past 12 months we worried whether our food would run out before we got money to buy more. Never True 07/27/2023 Food Insecurity - Inability Not on file 07/12 Purpose - Life Answer Date Recorded Purpose and direction in life Unknown Sex and Gender Information Value Date Recorded Sex Assigned at Male 05/31/2022 3:24 PM EDT Legal Sex Male 12:12 PM EDT Gender Identity Male 05/31/2022 3:24 PM EDT Sexual Orientation Not on file Last Filed Vital Signs Vital Sign Reading Time Taken Comments Blood Pressure 140/94 07/27/2023 2:29 PM EST Pulse 78 07/27/2023 2:29 PM EST Temperature 36.9 C (98.4 F) 07/06/2022 10:19 AM EDT Respiratory Rate - - Oxygen Saturation - - Inhaled Oxygen Concentration - - Weight 100.2 kg (221 lb) 07/27/2023 2:29 PM EST Height 170.2 cm (5' 7 ) 07/27/2023 2:29 PM EST Body Mass Index 34.61 07/27/2023 2:29 PM EST Plan of Treatment Health Maintenance Due Date Last Done Comments Depression Screening 1982 Zoster (Shingles) Vaccine (1 of 2) 02/08/2020 COVID-19 Vaccine (2023-2 5 season) 2024 07/21/2022, 08/03/2021, 10/21/2020, Additional history exists Adult BMI Screening 07/27/2024 07/27/2023 Tobacco Screening 07/27/2024 07/27/2023 Influenza Vaccine 05/12/2025 07/14/2009 DTaP,Tdap and Td Vaccines (2 - Td or Tdap) 05/09/2027 05/09/2017 Colonoscopy 06/28/2033 06/28/2023 Medical Devices Not on file Procedures Procedure Name Priority Date/Time Associated Diagnosis Comments COLONOSCOPY Routine 06/28/2023 Screening for cancer from Last 3 Months or Most Recently Relevant to Health Maintenance Results * Colonoscopy (06/28/2023) us Sebastian More DO GI PROCEDURE ORDERABLES Fin al Result MANUALLY TRANSCRIBED RESULTS from Last 3 Months or Most Recently Relevant to Health Maintenance Insurance COUNT INCLUDES THE [facility] Care Teams Melt House Drag Operator Relationship Specialty Start Date End Date Kell Jack MD [address] [place] [phone] PCP - General Family Medicine 05/31/22
--- OUTSIDE RECORDS SUMMARY | 2025-03-24 12:01 | XMS_ITS | Clinical Summary ---
Author Organization [facility] Address [address] [place] [address] Care Team Providers Care Tafe Registrar Name Role Phone Kell Jack MD Primary Care Provider [phone] Allergies No known active allergies Medications atenolol-chlort halidone (Tenoretic) 50-25 MG tablet Take 1 tablet by mouth Daily 4 Active B Complex-C (b complex-vitamin c) tablet Take 1 tablet by mouth in the morning. Active Restasis 0.05 % ophthalmic emulsion Administer 1 drop into both eyes in the morning and 1 drop before bedtime. 4 Active diclofenac (Voltaren) 75 MG EC tablet Take 75 mg by mouth in the morning and 75 mg before bedtime. Active DULoxetine (Cymbalta) [address] capsule Take 30 mg by mouth Daily 4 Active methocarbamol (Robaxin) 750 MG tablet Take 750 mg by mouth in the morning and 750 mg in the evening and 750 mg before bedtime. 4 Active omega-3 1000 MG capsule capsule Take by mouth Active Testosterone 20.25 MG/ACT (1.62%) gel APPLY 2 PUMPS TO CLEAN, DRY, INTACT SKIN EVERY MORNING 4 Active doxepin (SINEquan) 10 MG capsuleIndicati ons:JOSÉ (obstructive sleep apnea),Hypersom juliet,PLMD (periodic limb movement disorder) TAKE 1 TO 2 CAPSULES BY MOUTH EVERY DAY AT BEDTIME 180 capsule 1 5 Active Active Problems Problem Noted Date Diagnosed Date PLMD (periodic limb movement disorder) 4 Hypersomnia 05/15/2024 JOSÉ (obstructive sleep apnea) 05/15/2024 Snoring 05/15/2024 Family History Medical History Relation Name Comments Diabetes Father Heart disease Father Relation Name Status Comments Father Social History Tobacco Use Types Packs/Day Years Used Date Smoking Tobacco: Never Smokeless Tobacco: Never Alcohol Use Standard Drinks/Week Comments Yes 7 (1 standard drink = 0.6 oz pur e alcohol) Sex and Gender Information Value Date Recorded Sex Assigned at Not on file Legal Sex Male 3:33 PM EDT Gender Identity Not on file Sexual Orientation Not on file Last Filed Vital Signs Vital Sign Reading Time Taken Comments Blood Pressure 122/84 05/15/2024 3:36 PM EDT Pulse 70 05/15/2024 3:36 PM EDT Temperature - - Respiratory Rate 16 02/21/2024 3:27 PM EDT Oxygen Saturation 94% 05/15/2024 3:36 PM EDT Inhaled Oxygen Concentration - - Weight 99.8 kg (220 lb) 02/21/2024 3:27 PM EDT Height 172.7 cm (5' 8 ) 05/15/2024 3:36 PM EDT Body Mass Index 33.45 02/21/2024 3:27 PM EDT Plan of Treatment Health Maintenance Due Date Last Done Comments CT Colonography 1970 Colonoscopy 1970 Colorectal Cancer Screening 1970 FIT-DNA 1970 FIT 1970 FOBT 1970 Sigmoidoscopy 1970 Influenza Vaccine (#1) 2025 Insurance [facility] Member Subscriber Plan / Payer (Ef fective 2022-Present) Name:Manuel Burgos Member ID:[id number] Relation to Subscriber:Self Name:Manuel Burgos Subscriber ID:[id number] Payer ID:Not on file Type:Not on file Address: [facility] [address] [place] [address] Care Teams Tafe Registrar Relationship Specialty Start Date End Date Kell Jack MD PCP - General Family Medicine 02/21/24
--- OUTSIDE RECORDS SUMMARY | 2025-03-24 12:01 | XMS_ITS | Clinical Summary ---
Author Organization [employer] Address [address] [place] [address] Care Team Providers Care Musculoskeletal Physician Name Role Phone Kell Jack MD Primary Care Provider [phone] Medications diclofenac EC [address] tablet 1 Active Testosterone 20.25 MG/ACT (1.62%) Gel gel APPLY 1 PUMP TOPICALLY EACH MORNING 1 Active atenolol-chlort halidone 50-25 MG tablet 1 Active Multiple Vitamins-Minera ls (PRESERVISION AREDS PO) Take by mouth 2 times daily. Active cyclobenzaprine 10 MG tabletIndicatio ns:Chronic pain syndrome,Myofas cial pain Take 1 tablet by mouth at bedtime as needed for Muscle spasms. 30 tablet 2 Active DULoxetine [address] Particles capsule DRIndications:L umbar radiculopathy,S nimco stenosis of cervical region,Chronic pain syndrome Take 1 capsule by mouth daily. 30 capsule 2 2 Active Active Problems Problem Noted Date Diagnosed Date Obesity (BMI 30.0-34.9) 03/17/2021 Essential (primary) hypertension 03/17/2021 Social History Tobacco Use Types Packs/Day Years Used Date Smoking Tobacco: Never Smokeless Tobacco: Never Alcohol Use Standard Drinks/Week Comments Yes 5 (1 standard drink = 0.6 oz pur e alcohol) 5 beers/week Sex and Gender Information Value Date Recorded Sex Assigned at Not on file Legal Sex Male 11:59 AM EDT Gender Identity Not on file Sexual Orientation Not on file Last Filed Vital Signs Vital Sign Reading Time Taken Comments Blood Pressure 139/90 05/07/2021 3:41 PM EDT denies dizziness/lightheadedn ess. Pulse 58 05/07/2021 3:41 PM EDT Temperature - - Respiratory Rate 18 05/07/2021 3:41 PM EDT Oxygen Saturation 98% 05/07/2021 3:4 1 PM EDT Inhaled Oxygen Concentration - - Weight 98.9 kg (218 lb) 04/27/2021 11:0 9 AM EDT Height 170.2 cm (5' 7 ) 04/27/2021 11:0 9 AM EDT Body Mass Index 34.14 04/27/2021 11:09 AM EDT Plan of Treatment Health Maintenance Due Date Last Done Comments HEPATITIS C VIRUS SCREENING 1970 HIV SCREENING DISCUSSION 1985 HEP B VACCINE (1 of 3 - 19+ 3-dose series) 1989 LIPID SCREENING 2010 COLORECTAL CANCER SCREENING DISCUSSION 2015 PNEUMOCOCCAL VACCINE SERIES (1 of 1 - PCV) 02/08/2020 ZOSTER (SHINGLES) VACCINE (1 of 2) 02/08/2020 COVID-19 VACCINE (1 - season) 2024 PROSTATE CANCER SCREENING DISCUSSION 2025 INFLUENZA VACCINE (#1) 2025 07/14/2009 TETANUS 05/09/2027 05/09/2017 TDAP (ADULT) Completed 05/09/2017 Insurance MMO Care Teams Musculoskeletal Physician Relationship Specialty Start Date End Date Kell Jack MD PCP - General Family Medicine 02/10/21
--- OUTSIDE RECORDS SUMMARY | 2025-03-24 12:01 | XMS_ITS | Encounter Summary ---
Author Organization [employer] Address [id number] [address] [place] [address] Care Team Providers Care Business Functional Analyst Name Role Phone Kell Jack MD Primary Care Provider [phone] Encounter Details Date Type Department Care Team (Late st Contact Info) Description 08/30/2022 Orders Only [facility] [address] [place] [phone] Transcribe, Orders Support User Pain (Primary Dx) Social History Tobacco Use Types Packs/Day Years Used Date Smoking Tobacco: Never Smokeless Tobacco: Never Alcohol Use Standard Drinks/Week Comments Yes 0 (1 standard drink = 0.6 oz pur e alcohol) 5-7 WKLY Childcare Answer Date Recorded Childcare Unknown 02/20/2019 Employment Answer Date Recorded Employment Unknown 02/20/2019 Purpose - Life Answer Date Recorded Purpose and direction in life Unknown Sex and Gender Information Value Date Recorded Sex Assigned at Male 05/31/2022 3:24 PM EDT Legal Sex Male 12:12 PM EDT Gender Identity Male 05/31/2022 3:24 PM EDT Sexual Orientation Not on file documented as of this encounter Plan of Treatment Not on file documented as of this encounter Results * Ultrasound abdomen limited (08/24/2022 2:05 PM EST) us Scanning Provider External IMG US ORDERABLES Fin al Result MANUALLY TRANSCRIBED RESULTS documented in this encounter Visit Diagnoses Diagnosis Pain- Primary Generalized pain documented in this encounter Care Teams Business Functional Analyst Relationship Specialty Start Date End Date Kell Jack MD [address] [place] [address] PCP - General Family Medicine 05/31/22 documented as of this encounter
[2025-03-24 12:20] VITALS: BP 119/90; PULSE 59; TEMP 36.1; O2SAT 98
[2025-03-24 12:50] VITALS: BP 135/82; PULSE 64; O2SAT 100
[2025-03-24] MEDS: 0.9 % SODIUM CHLORIDE 10 ML SYRINGE - SALINE FLUSH INJ (12:52)
[2025-03-24] MEDS: BUPIVACAINE HCL 0.25% PF 25 MG/10 ML VIAL INJ (12:52)
[2025-03-24] MEDS: IOHEXOL 240 MG/ML - 10 ML VIAL INJ (12:52)
[2025-03-24] MEDS: LIDOCAINE HCL 2% 400 MG/20 ML MDV 5 ML INJ (12:52)
[2025-03-24] MEDS: METHYLPREDNISOLONE ACETATE 80 MG/ML VIAL INJ (12:52)
[2025-03-24 12:54] VITALS: BP 135/88; PULSE 59; O2SAT 97
--- NOTE | 2025-03-24 12:54 | W.PM.PROCNOT ---
Date of procedure: 03/24/25 Pre-op diagnosis: Pain due to lumbar stenosis with neurogenic claudication Post-op diagnosis: same as pre-op Procedure: Procedure: Bilateral L4-5 transforaminal epidural steroid injection Medications: Bupivacaine 0.25% 2cc, lidocaine 2% 1cc, depomedrol 80mg The patient was seen and examined in the preoperative holding area.? Informed consent was obtained and placed on the chart.? Patient was brought to the medical procedure unit and placed in the prone position where a timeout was completed verifying the correct patient, procedure site, position, and planned special equipment using sterile aseptic technique.? Under direct fluoroscopic visualization a 25-gauge Quincke tipped spinal needle was advanced at level left L4-5 to the designated neural foramen where contrast dye was injected to show adequate spread.? There was no evidence of vascular or adverse uptake.? Epidural spread was appreciated.? The above-mentioned injectate was then placed in a 1.5 mL aliquot preceded by negative aspiration.? The needle was removed. The same procedure, at the same level, was completed on the opposite side. ? Patient was taken to the postprocedural recovery area and monitored for an appropriate length of time before found suitable for discharge in the accompaniment of a responsible adult. Anesthesia: Local Surgeon: Luis Fairchild Pathology: none sent Condition: stable Disposition: no change
== END 2025-03-24 12:57 | disposition home or self-care (01) ==
LOC: SURGOUT 11:59
PROVIDERS: PCP Family Medicine; Visit Provider Anesthesiology
DX: M48.062 Spinal stenosis, lumbar region with neurogenic claudication (principal); M54.50 Low back pain, unspecified
CPT/HCPCS: 64483; J0665; J1010; Q9966

== ENCOUNTER 2025-04-09 14:34 | Outpatient (OUT) | payer BC, SELFPAY ==
--- OUTSIDE RECORDS SUMMARY | 2025-04-09 14:37 | XMS_ITS | Encounter Summary ---
Author Organization [facility] Address [id number] [address] [place] [address] Care Team Providers Care Knowledge Management Consultant Name Role Phone Kell Jack MD Primary Care Provider [phone] Encounter Details Date Type Department Care Team (Late st Contact Info) Description 08/30/2022 Orders Only [facility] [address] [place] [phone] Transcribe, Orders Support User Pain (Primary [...] pain documented in this encounter Care Teams Knowledge Management Consultant Relationship Specialty Start Date End Date Kell Jack MD [address] [place] [address] PCP - General Family Medicine 05/31/22 documented as of this encounter
--- OUTSIDE RECORDS SUMMARY | 2025-04-09 14:37 | XMS_ITS | Clinical Summary ---
Author Organization [employer] Address [facility] [id number] [address] [place] [address] Care Team Providers Care Peace Officer Name Role Phone Kell Jack MD Primary Care Provider [phone] Allergies No known active allergies Medications atenoloL-chlort [...] TO SKIN EVERY MORNING 2 Active omega 8-yrm-btg-fish oil (Fish OiL) 300-1,000 mg capsule Take [...] Most Recently Relevant to Health Maintenance Insurance [facility] Care Teams Peace Officer Relationship Specialty Start Date End Date Kell Jack MD [address] [place] [phone] PCP - General Family Medicine 05/31/22
--- OUTSIDE RECORDS SUMMARY | 2025-04-09 14:37 | XMS_ITS | Clinical Summary ---
Author Organization [employer] Address [address] [place] [address] Care Team Providers Care Material Reprocessing Associate Name Role Phone Kell Jack MD Primary Care Provider [phone] Medications diclofenac EC [address] [...] (ADULT) Completed 05/09/2017 Insurance MMO Care Teams Material Reprocessing Associate Relationship Specialty Start Date End Date Kell Jack MD PCP - General Family Medicine 02/10/21
--- OUTSIDE RECORDS SUMMARY | 2025-04-09 14:37 | XMS_ITS | Clinical Summary ---
Author Organization [facility] Healthcare Address [address] [place] [address] Care Team Providers Care Image Scientist Name Role Phone Kell Jack MD Primary Care Provider [phone] Allergies No known active allergies Medications atenolol-chlort [...] Sigmoidoscopy 1970 Influenza Vaccine (#1) 2025 Insurance [facility] Care Teams Image Scientist Relationship Specialty Start Date End Date Kell Jack MD PCP - General Family Medicine 02/21/24
--- OUTSIDE RECORDS SUMMARY | 2025-04-09 14:37 | XMS_ITS | Encounter Summary ---
Author Organization [employer] Address [id number] [place] [address] Care Team Providers Care Salesperson Pianos And Organs Name Role Phone Kell Jack MD Primary Care Provider [phone] Encounter Details Date Type Department Care Team (Late st Contact Info) Description 07/04/2023 Telephone [facility] [address] [place] [phone] Bijal Dietz RMA Social History Tobacco Use Types Packs/Day Years [...] on file documented as of this encounter Miscellaneous Notes * Telephone Encounter - JUNE Patton - 07/04/2023 2:39 PM EDT I called Manuel and left a message to call the office so we can schedule an appointment with Shellei Norton NP to update his chart for a surgery with Dr. More on 07/12/23. * Telephone Encounter - JUNE Verdin - 07/04/2023 2:39 PM EDT Called patient regarding scheduling his post op for his hernia surgery. Unable to make contact withpatient, left voicemail message for patient to call out office back. Patient has FMLA forms that need the post op appointment indicated on it. documented in this encounter Plan of Treatment Not on file documented as of this encounter Visit Diagnoses Not on filedocumented in this encounter Care Teams Salesperson Pianos And Organs Relationship Specialty Start Date End Date Kell Jack MD [address] [place] [phone] PCP - General Family Medicine 05/31/22 documented as of this encounter
--- OUTSIDE RECORDS SUMMARY | 2025-04-09 14:37 | XMS_ITS | Patient Health Record ---
Author Organization [facility] Address [address] [place] [address] Care Team Providers Care Pacs Specialist Name Role Phone Kell Jack Primary Care Provider Margaux Burns Unavailable [phone] Results Component Value Reference Range Notes FERRITIN (Not yet reviewed b y provider) Interpretation: Performing Lab: Notes/Report: [facility] , Ferritin 92.0 26.0-388.0 ng/mL Performing Lab: see note ML - [facility] LB IRON AND TIBC (Not yet revie wed by provider) Interpretation: Performing Lab: Notes/Report: [facility] , Iron 110.0 65.0-175.0 ug/dL Total Iron Binding Capacity 364.0 250.0-450.0 u g/dL Percent Iron Saturation 30.2 Performing Lab: see note ML - [facility] LB CBC AUTO DIFF (Not yet revie wed by provider) Interpretation: Performing Lab: Notes/Report: [facility] , White Blood Count 10.9 4.0-11.0 10 3/uL Red Blood Count 5.10 4.70-6.10 10 6/uL Hemoglobin 16.6 14.0-18.0 g/dL Hematocrit 45.8 42.0-54.0 % Mean Corpuscular Volume 89.8 80.0-94.0 fL Mean Corpuscular Hemoglobin 32.5 25.9-34.0 pg Mean Corpuscular HGB Conc 36.2 29.9-35.2 g/dL Red Cell Distribution Width 13.3 11.0-15.0 % Platelet Count 250 150-450 10 3/uL Mean Platelet Volume 9.3 9.5-13.5 fL Neutrophils Percent Auto 43.7 43.0-75.0 % Lymphocytes Percent Auto 41.9 20.5-60.0 % Monocytes Percent Auto 8.3 1.7-12.0 % Eosinophils Percent Auto 5.0 0.9-7.0 % Basophils Percent Auto 0.9 0.2-2.0 % Immature Granulocytes Pct Auto 0.2 0.0-0.5 % Neutrophils Absolute Auto 4.7 1.4-6.5 10 3/uL Lymphocytes Absolute Auto 4.6 1.2-3.8 10 3/uL Monocytes Absolute Auto 0.9 0.3-0.8 10 3/uL Eosinophils Absolute Auto 0.5 0.0-0.7 10 3/uL Basophils Absolute Auto 0.1 0.0-0.1 10 3/uL Immature Granulocytes Abs Auto 0.02 0.00-0.03 10 3/uL Performing Lab: see note ML - [facility] LB Reason For Referral No Information Encounters Encounter Location Date Provider Diagnosis [facility] Oncology [address] [place] [address] 04/18/2024 Margaux Natalie Plan Of Treatment Pending Test Test Name Order Date CBC AUTO DIFF 12/19/2023 CBC AUTO DIFF 12/26/2023 CBC AUTO DIFF 04/11/2024 FERRITIN 04/11/2024 FERRITIN 12/19/2023 IRON AND TIBC 12/19/2023 IRON AND TIBC 04/11/2024 LAB TESTING 12/19/2023 LDH 12/26/2023 PERIPHERAL SMEAR 12/26/2023 LAMONT and PE, Serum 12/26/2023 Insurance Providers Payer Name Payer Address Payer Phone Subscriber Number Group Number Insured Name Patient Relationship to Insured Coverage Start Date Coverage End Date [employer] [address] [place] [address] [id number] Jaron [id number] Manuel Burgos Self - patient is the insured [employer] ACC[employer] PPO PLUS LOCAL PLAN [address] [place] [address] [id number] G Shyann Burgos Spouse - patient is the spouse of the insured
--- NOTE | 2025-04-09 15:07 | PM.CN ---
Consult Note: HPI Data of Consult Patient: known to practice within the last 3 years Requesting Physician: Rhonda Cheng NP Primary Care Provider: Kell Jack MD Consult Narrative Reason for consult: low back pain Narrative: Manuel Burgos a pleasant 55 year old male with chronic low back pain secondary to lumbar spondylosis, lumbar stenosis with NC, sacroiliitis presents for evaluation of back pain. utilizing zonegran 100mg hs, cymbalta 30mg daily, diclofenac 75mg bid, robaxin 750mg prn, tylenol, and tizanidine with benefit without side effects. pain today 3/10 aching in right low back, increasing to 5/10 with standing, walking, sitting too long, activity. pain improved with ice, lying, and sleep. KAYA 16%. recently underwent bilateral L4/5 TFESI on 03-24-15 with 70% improvement ongoing per pt. tremendous help . cc:: CC: Rhonda Cheng NP Review of Systems ROS Musculoskeletal Reports: back pain and joint pain; Denies: extremity pain PFSH PFSH Medical History Heartburn ?R12 - Heartburn (ICD-10) Umbilical hernia ?K42.9 - Umbilical hernia without obstruction or gangrene (ICD-10) H/O retained foreign body fully removed ?Z87.821 - Personal history of retained foreign body fully removed (ICD-10) Hypertension ?I10 - Essential (primary) hypertension (ICD-10) Glaucoma ?H40.9 - Unspecified glaucoma (ICD-10) Surgical History History of surgery on right wrist ?Z98.890 - Other specified postprocedural states (ICD-10) H/O arthroscopy of shoulder ?Z98.890 - Other specified postprocedural states (ICD-10) H/O colonoscopy ?Z98.890 - Other specified postprocedural states (ICD-10) Family History Aunt Family history of cancer Grandmother Family history of cancer Grandfather Family history of cancer Other Family history of diabetes mellitus Family history of hypertension Family history of myocardial infarction Social History Within the past year, how often did you have a drink containing alcohol: 2-3 times a week Within the past year, how many standard drinks containing alcohol did you have on a typical day: 5 or 6 Within the past year, how often did you have six or more drinks on one occasion: weekly Total score: 7 Score interpretation: A score of 4 or more indicates drinking is likely to affect patient's safety. 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 Highest level of school completed/degree received: Associate degree: academic program Meds Home Medications and Allergies Home Medications ?Medication ?Instructions ?Recorded ?Confirmed ?Type ascorbic acid (vitamin C) 250 mg 250 mg PO DAILY 06/22/23 03/24/25 History tablet atenolol 50 mg-chlorthalidone 25 1 tab PO DAILY 06/22/23 03/24/25 History mg tablet diclofenac sodium 75 mg 75 mg PO BID 06/22/23 03/24/25 History tablet,delayed release testosterone 1.62 % (20.25 mg/1.25 1 packet transdermal QAM 06/22/23 03/24/25 History gram) transdermal gel packet (AndroGel) vitamin B comp and C no.3 15 mg-10 1 cap PO DAILY 06/22/23 03/24/25 History mg-50 mg-5 mg-300 mg capsule (B Complex Plus Vitamin C) methocarbamol 750 mg tablet 750 mg PO TID 08/31/23 03/24/25 History hydrocodone 7.5 mg-acetaminophen See Rx Instructions .Route 07/16/24 03/24/25 Rx 325 mg tablet .COMPLEX PRN pain #20 tabs naloxone 4 mg/actuation nasal 4 mg intranasal Q3M PRN opioid 07/17/24 03/24/25 Rx spray (Narcan) overdose #2 ea zonisamide 50 mg capsule 100 mg (2 x 50 mg) PO DAILY #60 02/10/25 03/24/25 Rx caps Allergies Allergy/AdvReac Type Severity Reaction Status Date / Time No Known Drug Allergies Allergy Verified 03/24/25 12:22 Exam Constitutional Documenting provider has reviewed patient's vital signs: yes Common normals: no apparent distress, oriented x3, healthy appearing, alert and well nourished General appearance: cooperative HENMT Common normals: normocephalic, hearing grossly normal bilaterally and moist oral mucous membranes Head and scalp: normocephalic Eye Common normals: PERRL Pupil: PERRL Neck & C-Spine Common normals: full ROM General: normal visual inspection Chest Common normals: inspection of chest normal Respiratory Common normals: normal respiratory effort, no retractions and no use of accessory muscles Back & Pelvis Lumbar spine/lower back: straight leg raise negative bilaterally; ROM not limited and no pain with ROM Sacroiliac joints: SI joint(s) abnormal Other: right sij positive katia(patricks), gaenslens, thigh thrust, compression test strength 5/5 in BLE sensation intact BLE Neuro Common normals: oriented x3 Sensorium/orientation: alert Psych Common normals: mental status grossly normal, thought process normal, cooperative, affect normal, speech normal and activity/motor behavior normal Speech: normal speech Thought process: normal thought process Results Additional Findings Additional findings: If on a controlled substance or opioids, I have checked an OARRS report on this patient and there are no aberrancies noted in the prescribing history.??If on a controlled substance or opioid a drug screen was completed and reviewed within the last year, and if there has not been a drug screen completed we ordered one today to monitor higher risk, state monitored pain medication use. As part of providing excellent, safe, comprehensive care, the following was completed at our patient's visit: 1. A medication reconciliation and review to ensure accurate knowledge of current/active medications, including asking our patients to inform us about any [id number] medications or herbal remedies/nutritional supplements/alternative remedies. 2. A review to specifically ensure our patients have had annual screening for screening for depression, screening for tobacco use, and screening for unhealthy alcohol use. For concerning screenings had a discussion with the patient, provided patient education, and recommended follow-up with primary care provider when appropriate. If patient noted with a risk of falling, they received education on strength, gait, and balance training to prevent future risk of falling. Portions of this note may have been carried over from the previous visit and updated as appropriate. Please note this office utilizes paper charting in addition to the electronic medical record. A list of current medications, vitals, and PMH is available there as the clinical staff outside of myself do not have access to [employer] charting during the clinic day operations. As part of providing quality comprehensive care the current medications, vitals, and PMH were reviewed in the paper chart. Assessment and Plan Assessment and Plan (1) Lumbar stenosis with neurogenic claudication: (2) Sacroiliitis: (3) Myofascial pain: (4) Lumbar spondylosis: Plan pain well controlled with current medication regimen, declining right sij injection under fluoroscopy continue current medications f/u PRN
== END 2025-04-09 14:35 | disposition home or self-care (01) ==
LOC: PM 14:34
PROVIDERS: PCP Family Medicine; Visit Provider Nurse Practitioner
DX: M48.062 Spinal stenosis, lumbar region with neurogenic claudication (principal); M46.1 Sacroiliitis, not elsewhere classified; M79.18 Myalgia, other site; M47.816 Spondylosis without myelopathy or radiculopathy, lumbar region
CPT/HCPCS: G0463

== ENCOUNTER 2025-05-05 11:43 | Day surgery (SDC) | payer BC, SELFPAY ==
--- OUTSIDE RECORDS SUMMARY | 2025-05-05 11:45 | XMS_ITS | Encounter Summary ---
Author Organization [employer] Address [id number] [address] [place] [address] Care Team Providers Care Wood Carving Lathe Operator Name Role Phone Kell Jack MD Primary Care Provider [phone] Encounter Details Date Type Department Care Team (Late st Contact Info) Description 07/04/2023 Telephone [facility] [address] [place] [phone] Bijal Dietz RMA Social History Tobacco Use [...] so we can schedule an appointment with Shellie Norton NP to update his chart for [...] on filedocumented in this encounter Care Teams Wood Carving Lathe Operator Relationship Specialty Start Date End Date Kell Jack MD [address] [place] [phone] PCP - General Family Medicine 05/31/22 documented as of this encounter
--- OUTSIDE RECORDS SUMMARY | 2025-05-05 11:45 | XMS_ITS | Encounter Summary ---
Author Organization [facility] Address [id number] [address] [place] [address] Care Team Providers Care Cuff Knitter Name Role Phone Kell Jack MD Primary Care Provider [phone] Encounter Details Date Type Department Care Team (Late st Contact Info) Description 08/30/2022 Orders Only [facility] [address] [place] [phone] Transcribe, Orders Support User Pain (Primary [...] pain documented in this encounter Care Teams Cuff Knitter Relationship Specialty Start Date End Date Kell Jack MD [address] [place] [address] PCP - General Family Medicine 05/31/22 documented as of this encounter
--- OUTSIDE RECORDS SUMMARY | 2025-05-05 11:45 | XMS_ITS | Clinical Summary ---
Author Organization [employer] Address [address] [place] [address] Care Team Providers Care Office Electrician Name Role Phone Kell Jack MD Primary Care Provider [phone] Medications diclofenac EC [address] [...] (ADULT) Completed 05/09/2017 Insurance MMO Care Teams Office Electrician Relationship Specialty Start Date End Date Kell Jack MD PCP - General Family Medicine 02/10/21
--- OUTSIDE RECORDS SUMMARY | 2025-05-05 11:45 | XMS_ITS | Clinical Summary ---
Author Organization [employer] Address [facility] [id number] [address] [place] [address] Care Team Providers Care Animal Care Attendant Name Role Phone Kell Jack MD Primary Care Provider [phone] Allergies No known active allergies Medications atenoloL-chlort [...] TO SKIN EVERY MORNING 2 Active omega 3-sse-mrs-fish oil (Fish OiL) 300-1,000 mg capsule Take [...] Most Recently Relevant to Health Maintenance Insurance [facility] Care Teams Animal Care Attendant Relationship Specialty Start Date End Date Kell Jack MD [address] [place] [phone] PCP - General Family Medicine 05/31/22
--- OUTSIDE RECORDS SUMMARY | 2025-05-05 11:45 | XMS_ITS | Clinical Summary ---
Author Organization [facility] Healthcare Address [address] [place] [address] Care Team Providers Care Feather Duster Winder Name Role Phone Kell Jack MD Primary Care Provider [phone] Allergies No known active allergies Medications atenolol-chlort [...] Sigmoidoscopy 1970 Influenza Vaccine (#1) 2025 Insurance [facility] Care Teams Feather Duster Winder Relationship Specialty Start Date End Date Kell Jack MD PCP - General Family Medicine 02/21/24
[2025-05-05 11:47] VITALS: BP 145/91; PULSE 64; TEMP 36.2; O2SAT 98
[2025-05-05 12:21] VITALS: BP 136/78; BP 137/80; PULSE 59; PULSE 61; O2SAT 98
[2025-05-05] MEDS: LIDOCAINE HCL 2% 400 MG/20 ML MDV INJ (12:26)
[2025-05-05] MEDS: BUPIVACAINE HCL 0.25% PF 25 MG/10 ML VIAL 2 ML INJ (12:26)
[2025-05-05] MEDS: IOHEXOL 240 MG/ML - 10 ML VIAL 24 MG INJ (12:26)
[2025-05-05] MEDS: METHYLPREDNISOLONE ACETATE 40 MG/ML VIAL INJ (12:27)
--- NOTE | 2025-05-05 12:40 | W.PM.PROCNOT ---
Date of procedure: 05/05/25 Pre-op diagnosis: Pain due to right sacroiliitis Post-op diagnosis: same as pre-op Procedure: Procedure: Right sacroiliac joint injection Medications: Bupivacaine 0.25% 3cc, depomedrol 40mg After informed consent was obtained, the patient was brought to the medical procedure unit and placed in the prone position, when a timeout was completed verifying correct patient, procedure, site, positioning, implant, and/or special equipment.? The skin overlying the area was prepped and draped in standard sterile fashion using alcohol.? A 25-gauge needle was inserted towards the right sacroiliac joint under direct fluoroscopic imaging.? Needle tip was advanced until the joint was encountered.? We instilled a total of 2 mL of solution.? Postoperatively needles were removed.? The patient tolerated the procedure well without complication.? The patient reported reduction in pain symptoms postoperatively. Anesthesia: Local Surgeon: Luis Fairchild Pathology: none sent Condition: stable Disposition: no change
== END 2025-05-05 12:27 | disposition home or self-care (01) ==
PROVIDERS: PCP Family Medicine; Visit Provider Anesthesiology
DX: M46.1 Sacroiliitis, not elsewhere classified (principal)
CPT/HCPCS: 27096; J0665; J1010; Q9966

== ENCOUNTER 2025-05-15 15:22 | Outpatient (OUT) | payer BC, SELFPAY ==
--- NOTE | 2025-05-15 15:32 | PM.CN ---
Consult Note: HPI Data of Consult Patient: known to practice within the last 3 years Requesting Physician: Rhonda Cheng NP Primary Care Provider: Kell Jack MD Consult Narrative Reason for consult: low back pain Narrative: Manuel Burgos a pleasant 55 year old male with chronic low back pain secondary to lumbar spondylosis, lumbar stenosis with NC, sacroiliitis presents for evaluation of back pain. utilizing zonegran 100mg hs, cymbalta 30mg daily, diclofenac 75mg bid, robaxin 750mg prn, tylenol, and tizanidine with benefit without side effects. pain today 3/10 aching in right low back, increasing to 5/10 with standing, walking, sitting too long, activity. pain improved with ice, lying, and sleep. KAYA 16%. recently underwent right SIJ injection with moderate ongoing relief. pt was able to hike 3 miles recently without difficulty. pt pleased with outcome. cc:: CC: Rhonda Cheng NP Review of Systems ROS Musculoskeletal Reports: back pain and joint pain; Denies: extremity pain PFSH PFSH Medical History Heartburn ?R12 - Heartburn (ICD-10) Umbilical hernia ?K42.9 - Umbilical hernia without obstruction or gangrene (ICD-10) H/O retained foreign body fully removed ?Z87.821 - Personal history of retained foreign body fully removed (ICD-10) Hypertension ?I10 - Essential (primary) hypertension (ICD-10) Glaucoma ?H40.9 - Unspecified glaucoma (ICD-10) Surgical History History of surgery on right wrist ?Z98.890 - Other specified postprocedural states (ICD-10) H/O arthroscopy of shoulder ?Z98.890 - Other specified postprocedural states (ICD-10) H/O colonoscopy ?Z98.890 - Other specified postprocedural states (ICD-10) Family History Aunt Family history of cancer Grandmother Family history of cancer Grandfather Family history of cancer Other Family history of diabetes mellitus Family history of hypertension Family history of myocardial infarction Social History Within the past year, how often did you have a drink containing alcohol: 2-3 times a week Within the past year, how many standard drinks containing alcohol did you have on a typical day: 5 or 6 Within the past year, how often did you have six or more drinks on one occasion: weekly Total score: 7 Score interpretation: A score of 4 or more indicates drinking is likely to affect patient's safety. 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 Highest level of school completed/degree received: Associate degree: academic program Meds Home Medications and Allergies Home Medications ?Medication ?Instructions ?Recorded ?Confirmed ?Type ascorbic acid (vitamin C) 250 mg 250 mg PO DAILY 06/22/23 05/05/25 History tablet atenolol 50 mg-chlorthalidone 25 1 tab PO DAILY 06/22/23 05/05/25 History mg tablet diclofenac sodium 75 mg 75 mg PO BID 06/22/23 05/05/25 History tablet,delayed release testosterone 1.62 % (20.25 mg/1.25 1 packet transdermal QAM 06/22/23 05/05/25 History gram) transdermal gel packet (AndroGel) vitamin B comp and C no.3 15 mg-10 1 cap PO DAILY 06/22/23 05/05/25 History mg-50 mg-5 mg-300 mg capsule (B Complex Plus Vitamin C) methocarbamol 750 mg tablet 750 mg PO TID 08/31/23 05/05/25 History hydrocodone 7.5 mg-acetaminophen See Rx Instructions .Route 07/16/24 05/05/25 Rx 325 mg tablet .COMPLEX PRN pain #20 tabs naloxone 4 mg/actuation nasal 4 mg intranasal Q3M PRN opioid 07/17/24 05/05/25 Rx spray (Narcan) overdose #2 ea zonisamide 50 mg capsule 100 mg (2 x 50 mg) PO DAILY #60 02/10/25 05/05/25 Rx caps Allergies Allergy/AdvReac Type Severity Reaction Status Date / Time No Known Drug Allergies Allergy Verified 05/05/25 11:46 Exam Constitutional Documenting provider has reviewed patient's vital signs: yes Common normals: no apparent distress, oriented x3, healthy appearing, alert and well nourished General appearance: cooperative HENMT Common normals: normocephalic, hearing grossly normal bilaterally and moist oral mucous membranes Head and scalp: normocephalic Eye Common normals: PERRL Pupil: PERRL Neck & C-Spine Common normals: full ROM General: normal visual inspection Chest Common normals: inspection of chest normal Respiratory Common normals: normal respiratory effort, no retractions and no use of accessory muscles Back & Pelvis Lumbar spine/lower back: paraspinal muscle tenderness and straight leg raise negative bilaterally; ROM not limited, no pain with ROM and no paraspinal muscle spasm Sacroiliac joints: SI joints normal Other: right sij negative katia(patricks), gaenslens, thigh thrust, compression test strength 5/5 in BLE sensation intact BLE Neuro Common normals: oriented x3 Sensorium/orientation: alert Psych Common normals: mental status grossly normal, thought process normal, cooperative, affect normal, speech normal and activity/motor behavior normal Speech: normal speech Thought process: normal thought process Results Additional Findings Additional findings: If on a controlled substance or opioids, I have checked an [place] report on this patient and there are no aberrancies noted in the prescribing history.??If on a controlled substance or opioid a drug screen was completed and reviewed within the last year, and if there has not been a drug screen completed we ordered one today to monitor higher risk, state monitored pain medication use. As part of providing excellent, safe, comprehensive care, the following was completed at our patient's visit: 1. A medication reconciliation and review to ensure accurate knowledge of current/active medications, including asking our patients to inform us about any [id number] medications or herbal remedies/nutritional supplements/alternative remedies. 2. A review to specifically ensure our patients have had annual screening for screening for depression, screening for tobacco use, and screening for unhealthy alcohol use. For concerning screenings had a discussion with the patient, provided patient education, and recommended follow-up with primary care provider when appropriate. If patient noted with a risk of falling, they received education on strength, gait, and balance training to prevent future risk of falling. Portions of this note may have been carried over from the previous visit and updated as appropriate. Please note this office utilizes paper charting in addition to the electronic medical record. A list of current medications, vitals, and PMH is available there as the clinical staff outside of myself do not have access to [employer] charting during the clinic day operations. As part of providing quality comprehensive care the current medications, vitals, and PMH were reviewed in the paper chart. Assessment and Plan Assessment and Plan (1) Sacroiliitis: Assessment and Plan: 05-05-25 right SIJ injection >50% improvement ongoing (2) Lumbar stenosis with neurogenic claudication: (3) Myofascial pain: (4) Lumbar spondylosis: Plan pain well controlled with current medication regimen continue current medications f/u PRN per pt request
--- OUTSIDE RECORDS SUMMARY | 2025-05-15 16:09 | XMS_ITS | CCD ---
Author Organization [facility] Care Team Providers Care Nursing Resident Name Role Phone Kell Bowling MD Primary Care Provider [phone] TAWNYA, DR KELL Monet Primary Care Unavailable KASSIE Isidro, DR LIZBETH Donald Attending Unavaila marilin Isidro, DR LIZBETH Donald Consulting Unavaila marilin Isidro, DR LIZBETH Donlad Admitting Unavaila ble TAWNYA, DR KELL Monet [...] BOWLING, DR KELL Monet Primary Care Unavailable Kell Bowling Unavailable Kell Bowling Primary Care Unavailable Margaux Estrada Attending Unavailable Margaux Estrada Admitting Unavailable MINA PINEDO Attending Unavailable BLAS FRAZIER Attending Unavailable Chata Page Attending Unavailable Chata Page Attending Unavailable Kell Bowling MD Primary Care Provider Gurinder FERMIN, Luis Stallings Attending Unavailable Gurinder FERMIN, Luis Stallings Attending Unavailable Gurinder FERMIN, Luis Stallings Attending Unavailable Allergies Allergy Classification Reported Allergen(s) Allergy Type Date of Onset Reaction(s) Facility (2 sources) patient allergy list reviewed by nurse or physicia Propensity to adverse reactions Comment:Done [facility] Other (2 sources) Allergies Reconciled Propensity to adverse reactions Unknown [facility] Other Medications Current Medications Medication Drug Class(es) [...] oral daily for 90 *Pick strength-form from [employer] for eRX* Aug, Active Start: 02-05-2021 atenolol-chlor [...] daily, as needed for 0 *Reorder from [employer] for eRx and Interaction Alerts* May, Active [...] Start: 03-18-2024 take 1 capsule by mo cox branson once daily at bedtime doxepin (SINEquan) 10 [...] Refill. Active transdermal for 0 *Reorder from [employer] for eRx and Interaction Alerts* May, Active [...] Geovanna Clarke on 10-16-2024 Quick Strep (POC) [facility] Urology Office/Clinic Noteon 07-31-2024 Urology Office/Clinic Note Urology Office/Clinic Note Chief Complaint Patient in office for f/u with blood work HPI Staff Manuel is a 54 yo male pt here today for a 1 yr f/u w/Testosterone Levels. Previous DX: male hypogonadism, BPH, impotence *Cialis 10mg PRN, Androgel 2 pumps qd. Patient had BW done at [facility] on 07/29/24 and 07/30/24. PSA was [...] 324 07/19/21 - 754 07/20/23 - 366 [phone]) 07/29/24 - 464 07/30/24 - Hgb 16.5 [...] healthy lifestyle Follow-up With When Contact Information Camlio FERMIN, Chata Inman, URL, URO In 1 [...] 02/08/2013 Gi (more content not included)... [facility] Comment on above: Result Comment: Elec tronically Signed By: Camilo FERMIN, Chata Pope.br\Date and Time Signed: 07/31/24 08:33 EST Basophils Auto (Bld) [#/Vol] on 07-30-2024 Basophils (Bld) [#/Vol] Automated basoph il count 0.0-0.1 [facility] Basophils/100 WBC Auto (Bld) on 07-30-2024 Basophils/100 WBC (Bld) Automated basophil % 0. 2-2.0 [facility] Cholesterol in LDL Calc [Mas s/Vol]on 07-30-2024 Cholesterol in LDL [Mass/Vol] Cholesterol in LDL [Mass/volume] in Serum or Plasma by calculation [facility] Comment on above: <100 mg/dl [id number] 0-129 mg/dl NEAR OR ABOVE [id number] mg/dl BORDERLINE [id number] mg/dl HIGH>190 mg/dl VERY HIGH Cholesterol in VLDL Calc [Ma ss/Vol]on 07-30-2024 Cholesterol in VLDL [Mass/Vol] Cholesterol in VLDL [Mass/volume] in Serum or Plasma by calculation [facility] Eosinophils/100 WBC Auto (Bl d)on 07-30-2024 Eosinophils/100 WBC (Bld) Automated eosi nophil % Low 0.9-7.0 [facility] Erythrocyte distribution wid th Auto (RBC) [Ratio]on 07-30-2024 Erythrocyte distribution width (RBC) [Ratio] Erythrocyte distribution width [Ratio] by Automated count 11.0-15.0 [facility] Estimated glomerular filtrat ion rate (GFR) non- Americanon 07-30-2024 GFR/1.73 sq M.predicted among non-blacks MDRD (S/P/Bld) [Vol rate/Area] Estimated glomerular filtration rate (GFR) non- Low >=60 mL/min/1.73m 2 [facility] Globulin Calc (S) [Mass/Vol] on 07-30-2024 Globulin (S) [Mass/Vol] Serum globulin measurement by calculation (mass/volume) [facility] Glucose mean value [Mass/vol ume] in Blood Estimated from glycated hemoglobinon 07-30-2024 Average glucose Estimated from glycated hemoglobin (Bld) [Mass/Vol] Glucose mean value [Mass/volume] in Blood Estimated from glycated hemoglobin [facility] Hematocrit Auto (Bld) [Volum e fraction]on 07-30-2024 Hematocrit (Bld) [Volume fraction] Hematocrit [Volume Fraction] of Blood by Automated count 42.0-54.0 [facility] Hemoglobin [Mass/volume] in Bloodon 07-30-2024 Hemoglobin (Bld) [Mass/Vol] Hemoglobin [Mass/volume] in Blood 14.0-18.0 [facility] Laboratory - Chemistry and C hemistry - challengeon 07-30-2024 Albumin [Mass/Vol] 3.5 g/dL 3.4-5.0 [facility] ALP [Catalytic activity/Vol] 76 U/L 46-116 [facility] ALT [Catalytic activity/Vol] 69 U/L High 16-63 [facility] AST [Catalytic activity/Vol] 22 U/L 15-37 [facility] Bilirubin [Mass/Vol] 1.1 mg/dL High 0.2-1.0 [facility] Calcium [Mass/Vol] 9.3 mg/dL 8.5-10.1 [facility] Chloride [Moles/Vol] 99 mmol/L 98-107 [facility] Cholesterol [Mass/Vol] 171 mg/dL <=200 [facility] Cholesterol in HDL [Mass/Vol] 56 mg/dL 40-60 [facility] Comment on above: > or =60 mg/dl - LOW CARDIOVASCULAR RISK<40 mg/dl - HIGH CARDIOVASCULAR RISK CO2 [Moles/Vol] 28.8 mmol/L 21.0-32.0 [facility] Creatinine [Mass/Vol] 1.50 mg/dL High 0.70-1.30 [facility] GFR/1.73 sq M.predicted MDRD (S/P/Bld) [Vol rate/Area] 59 mL/min/{1.73_m2} Low >=60 mL/min/1.73m 2 [facility] Glucose [Mass/Vol] 96 mg/dL 74-106 [facility] Potassium [Moles/Vol] 3.4 mmol/L Low 3.5-5.1 [facility] Protein [Mass/Vol] 7.3 g/dL 6.4-8.2 [facility] Sodium [Moles/Vol] 137 mmol/L 136-145 [facility] Triglyceride [Mass/Vol] 68 mg/dL <=150 [facility] TSH Qn 2.119 m[IU]/L 0.358-3.740 [facility] Urea nitrogen [Mass/Vol] 27.0 mg/dL High 7.0-18.0 [facility] Urea nitrogen/Creatinine [Mass ratio] 18.0 mg/mg [facility] Laboratory - Hematology and Cell countson 07-30-2024 HbA1c (Bld) [Mass fraction] 5.6 % 4.5-6.2 [facility] Comment on above: ADA RECOMMENDED LIMI T 4.0 - 6.0ADA THERAPEUTIC TARGET < 7.0ACTION SUGGESTED> 7.0 Immature granulocytes/100 WBC (Bld) 0.6 % High 0.0-0.5 [facility] Leukocytes [#/volume] correc josé for nucleated erythrocytes in Blood by Automated counon 07-30-2024 WBC corrected for nucl RBC Auto (Bld) [#/Vol] Leukocytes [#/volume] corrected for nucleated erythrocytes in Blood by Automated coun High 4.0-11.0 [facility] Lymphocytes Auto (Bld) [#/Vo l]on 07-30-2024 Lymphocytes (Bld) [#/Vol] Lymphocytes [#/volume] in Blood by Automated count High 1.2-3.8 [facility] Lymphocytes/100 WBC Auto (Bl d)on 07-30-2024 Lymphocytes/100 WBC (Bld) Lymphocytes/10 0 leukocytes in Blood by Automated count 20.5-60.0 [facility] MCH Auto (RBC) [Entitic mass ]on 07-30-2024 MCH (RBC) [Entitic mass] MCH [Entitic ma ss] by Automated count 25.9-34.0 [facility] MCHC Auto (RBC) [Mass/Vol]on 07-30-2024 MCHC (RBC) [Mass/Vol] MCHC [Mass/volume] by Automated count 29.9-35.2 [facility] MCV Auto (RBC) [Entitic vol] on 07-30-2024 MCV (RBC) [Entitic vol] MCV [Entitic vol ume] by Automated count 80.0-94.0 [facility] Monocytes Auto (Bld) [#/Vol] on 07-30-2024 Monocytes (Bld) [#/Vol] Automated blood monocyte count High 0.3-0.8 [facility] Monocytes/100 WBC Auto (Bld) on 07-30-2024 Monocytes/100 WBC (Bld) Automated monocyte % 1. 7-12.0 [facility] Neutrophils Auto (Bld) [#/Vo l]on 07-30-2024 Neutrophils (Bld) [#/Vol] Neutrophils [#/volume] in Blood by Automated count High 1.4-6.5 [facility] Neutrophils/100 WBC Auto (Bl d)on 07-30-2024 Neutrophils/100 WBC (Bld) Automated neut rophil % 43.0-75.0 [facility] No Panel Informationon 07-30 Eosinophils # (Auto) 0.1 10 3/uL 0.0-0.7 [facility] Immature Granulocyte # (Auto) 0.09 10 3/uL High 0.00-0.03 [facility] Prostate Specific Antigen Screen 0.65 ng/mL <=4.00 [facility] Platelet mean volume Auto (B ld) [Entitic vol]on 07-30-2024 Platelet mean volume (Bld) [Entitic vol] Platelet mean volume [Entitic volume] in Blood by Automated count Low 9.5-13.5 [facility] Platelets Auto (Bld) [#/Vol] on 07-30-2024 Platelets (Bld) [#/Vol] Platelets [#/vol ume] in Blood by Automated count 150-450 [facility] RBC Auto (Bld) [#/Vol]on RBC (Bld) [#/Vol] Erythrocytes [#/volume] in Blood by Automated count 4.70-6.10 [facility] Serum or plasma albumin/glob ulin mass ratioon 07-30-2024 Albumin/Globulin [Mass ratio] Serum or plasma albumin/globulin mass ratio [facility] Serum or plasma anion gap de terminationon 07-30-2024 Anion gap [Moles/Vol] Serum or plasma anion gap determination [facility] Serum or plasma total choles terol/high density lipoprotein (HDL) cholesterol mass spencer 07-30-2024 Cholesterol.total/Cholest corbin in HDL [Mass ratio] Serum or plasma total cholesterol/high density lipoprotein (HDL) cholesterol mass rat [facility] Comment on above: 3.3 - 4.4 LOW RISK4. 4 - 7.1 AVERAGE RISK7.1 - 11.0 MODERATE RISK>11.0 HIGH RISK Hematocrit Auto (Bld) [Volum e fraction]on 07-29-2024 Hematocrit (Bld) [Volume fraction] Hematocrit [Volume Fraction] of Blood by Automated count 42.0-54.0 [facility] No Panel Informationon 07-29 Testosterone Level 464 ng/dL 264-916 [facility] Comment on above: Adult male reference interval is based on a population ofhealthy nonobese males (BMI <30) between 19 and 39 yearsold. bouchra Quinones.al. JCEM 2017,102;1575-5083. PMID:[id number].Performed at: [facility] [id number] Director: Checo Pitts PhD, Phone: [phone] Albumin [Mass/volume] in Ser um or Plasmaon 12-26-2023 Albumin [Mass/Vol] 3.7 g/dL 2.9-4.4 [facility] Basophils Auto (Bld) [#/Vol] on 12-26-2023 Basophils (Bld) [#/Vol] 0.1 10 3/uL 0.0-0.1 [facility] Basophils/100 WBC Auto (Bld) on 12-26-2023 Basophils/100 WBC (Bld) 0.7 % 0.2-2.0 [facility] Eosinophils/100 WBC Auto (Bl d)on 12-26-2023 Eosinophils/100 WBC (Bld) 3.0 % 0.9-7.0 [facility] Erythrocyte distribution wid th Auto (RBC) [Ratio]on 12-26-2023 Erythrocyte distribution width (RBC) [Ratio] 21.4 % 11.0-15.0 [facility] Hematocrit Auto (Bld) [Volum e fraction]on 12-26-2023 Hematocrit (Bld) [Volume fraction] 47.9 % 42.0-54.0 [facility] Hemoglobin [Mass/volume] in Bloodon 12-26-2023 Hemoglobin (Bld) [Mass/Vol] 15.7 g/dL 14.0-18.0 [facility] IgA [Mass/volume] in Serum o r Plasmaon 12-26-2023 IgA [Mass/Vol] 232 mg/dL 90-386 [facility] IgG [Mass/volume] in Serum o r Plasmaon 12-26-2023 IgG [Mass/Vol] 1144 mg/dL 603-1613 [facility] IgM [Mass/volume] in Serum o r Plasmaon 12-26-2023 IgM [Mass/Vol] 79 mg/dL 20-172 [facility] Bradley 12-26-2023 L Specimen: Received: 12/27/23 Status: KELSIE Johnson Num: [id number] Spec Type: Impression Subm Dr: Margaux Estrada MD Tissues: PATHPER Procedures: PATHREVIEW Age/ Patient Sex Location Account Attending Physician FaithjimmyManuel 53/M [facility] [id number] Margaux Estrada MD SPEC NUM: RECD: 12/27/23 STATUS: KELSIE BURNSAngie NUM: [id number] MAYRA: 12/26/[address]: Margaux Estrada MD ENTERED: 12/27/[address]: Chase Oropeza SPEC TYPE: Impression DEPT: KELSIE Jackson ENTERED BY: [id number] RECV BY: [id number] ORDERED: PATHREVIEW ORDERED: PATHREVIEW Pathologist Review Occasional atypical lymphocytes are noted. Atypical infection should be ruled out. Specimen: Received: 12/27/23 Status: KELSIE Elizabeth Num: [id number] Spec Type: Impression Subm Dr: Margaux Estrada MD Tissues: PATHPER Procedures: PATHREVIEW Patient: Manuel Burgos [id number] (Continued) Signed (signature on file) Elroy Hutchins MD 12/27/23 1523 Normal [facility] Laboratory - Chemistry and C hemistry - challengeon 12-26-2023 LDH [Catalytic activity/Vol] 211 U/L 85-227 [facility] Protein [Mass/Vol] 0.2 g/dL Not Observed [facility] Laboratory - Hematology and Cell countson 12-26-2023 Immature granulocytes/100 WBC (Bld) 0.2 % 0.0-0.5 [facility] Leukocytes [#/volume] correc josé for nucleated erythrocytes in Blood by Automated counon 12-26-2023 WBC corrected for nucl RBC Auto (Bld) [#/Vol] 9.7 10 3/uL 4.0-11.0 [facility] Lymphocytes Auto (Bld) [#/Vo l]on 12-26-2023 Lymphocytes (Bld) [#/Vol] 3.5 10 3/uL 1.2-3.8 [facility] Lymphocytes/100 WBC Auto (Bl d)on 12-26-2023 Lymphocytes/100 WBC (Bld) 36.4 % 20.5-60.0 [facility] MCH Auto (RBC) [Entitic mass ]on 12-26-2023 MCH (RBC) [Entitic mass] 27.5 pg 25.9-34.0 [facility] MCHC Auto (RBC) [Mass/Vol]on 12-26-2023 MCHC (RBC) [Mass/Vol] 32.8 g/dL 29.9-35.2 [facility] MCV Auto (RBC) [Entitic vol] on 12-26-2023 MCV (RBC) [Entitic vol] 84.0 fL 80.0-94.0 [facility] Monocytes Auto (Bld) [#/Vol] on 12-26-2023 Monocytes (Bld) [#/Vol] 0.7 10 3/uL 0.3-0.8 [facility] Monocytes/100 WBC Auto (Bld) on 12-26-2023 Monocytes/100 WBC (Bld) 7.5 % 1.7-12.0 [facility] Neutrophils Auto (Bld) [#/Vo l]on 12-26-2023 Neutrophils (Bld) [#/Vol] 5.1 10 3/uL 1.4-6.5 [facility] Neutrophils/100 WBC Auto (Bl d)on 12-26-2023 Neutrophils/100 WBC (Bld) 52.2 % 43.0-75.0 [facility] No Panel Informationon 12-25 Eosinophils # (Auto) 0.3 10 3/uL 0.0-0.7 [facility] Immature Granulocyte # (Auto) 0.02 10 3/uL 0.00-0.03 [facility] Protein Electrophoresis Note Comment . [facility] Comment on above: Protein electrophore sis scan will follow via computer,mail, or linoleum layer apprentice delivery.Performed at: [facility] [id number] Director: Checo Pitts PhD, Phone: [phone] Platelet mean volume Auto (B ld) [Entitic vol]on 12-26-2023 Platelet mean volume (Bld) [Entitic vol] 10.0 fL 9.5-13.5 [facility] Platelets Auto (Bld) [#/Vol] on 12-26-2023 Platelets (Bld) [#/Vol] 269 10 3/uL 150-450 [facility] Protein [Mass/volume] in Ser um or Plasmaon 12-26-2023 Protein [Mass/Vol] 6.9 g/dL 6.0-8.5 [facility] RBC Auto (Bld) [#/Vol]on RBC (Bld) [#/Vol] 5.70 10 6/uL 4.70-6.10 [facility] Serum globulin measurement ( mass/volume)on 12-26-2023 Globulin (S) [Mass/Vol] 3.2 g/dL 2.2-3.9 [facility] Serum or plasma albumin/glob ulin mass ratioon 12-26-2023 Albumin/Globulin [Mass ratio] 1.2 {ratio} 0.7-1.7 [facility] Serum or plasma alpha 1 glob ulin measurement by electrophoresis (mass/volume)on 12-26-2023 Alpha 1 globulin Elph [Mass/Vol] 0.2 g/dL 0.0-0.4 [facility] Serum or plasma alpha 2 glob ulin measurement by electrophoresis (mass/volume)on 12-26-2023 Alpha 2 globulin Elph [Mass/Vol] 0.7 g/dL 0.4-1.0 [facility] Serum or plasma beta globuli n measurement by electrophoresis (mass/volume)on 12-26-2023 Beta globulin Elph [Mass/Vol] 1.5 g/dL 0.7-1.3 [facility] Serum or plasma gamma globul in measurement by electrophoresis (mass/volume)on 12-26-2023 Gamma globulin Elph [Mass/Vol] 0.9 g/dL 0.4-1.8 [facility] Serum or plasma immunoelectr ophoresis interpretationon 12-26-2023 Interpretation IEP [Interp] Comment . [facility] Comment on above: Immunofixation shows IgG monoclonal protein with lambdalight chain specificity. Basophils Auto (Bld) [#/Vol] on 12-19-2023 Basophils (Bld) [#/Vol] 0.1 10 3/uL 0.0-0.1 [facility] Basophils/100 WBC Auto (Bld) on 12-19-2023 Basophils/100 WBC (Bld) 1.1 % 0.2-2.0 [facility] Eosinophils/100 WBC Auto (Bl d)on 12-19-2023 Eosinophils/100 WBC (Bld) 3.3 % 0.9-7.0 [facility] Erythrocyte distribution wid th Auto (RBC) [Ratio]on 12-19-2023 Erythrocyte distribution width (RBC) [Ratio] 21.6 % 11.0-15.0 [facility] Hematocrit Auto (Bld) [Volum e fraction]on 12-19-2023 Hematocrit (Bld) [Volume fraction] 45.7 % 42.0-54.0 [facility] Hemoglobin [Mass/volume] in Bloodon 12-19-2023 Hemoglobin (Bld) [Mass/Vol] 14.9 g/dL 14.0-18.0 [facility] Iron binding capacity [Mass/ volume] in Serum or Plasmaon 12-19-2023 Iron binding capacity [Mass/Vol] 370.0 ug/dL 250.0-450.0 [facility] Iron saturation [Mass Fracti on] in Serum or Plasmaon 12-19-2023 Iron saturation [Mass fraction] 37.6 % [facility] Laboratory - Chemistry and C hemistry - challengeon 12-19-2023 Ferritin [Mass/Vol] 31.0 ng/mL 26.0-388.0 [facility] Iron [Mass/Vol] 139.0 ug/dL 65.0-175.0 [facility] Laboratory - Hematology and Cell countson 12-19-2023 Immature granulocytes/100 WBC (Bld) 0.5 % 0.0-0.5 [facility] Leukocytes [#/volume] correc josé for nucleated erythrocytes in Blood by Automated counon 12-19-2023 WBC corrected for nucl RBC Auto (Bld) [#/Vol] 9.4 10 3/uL 4.0-11.0 [facility] Lymphocytes Auto (Bld) [#/Vo l]on 12-19-2023 Lymphocytes (Bld) [#/Vol] 3.3 10 3/uL 1.2-3.8 [facility] Lymphocytes/100 WBC Auto (Bl d)on 12-19-2023 Lymphocytes/100 WBC (Bld) 34.5 % 20.5-60.0 [facility] MCH Auto (RBC) [Entitic mass ]on 12-19-2023 MCH (RBC) [Entitic mass] 26.8 pg 25.9-34.0 [facility] MCHC Auto (RBC) [Mass/Vol]on 12-19-2023 MCHC (RBC) [Mass/Vol] 32.6 g/dL 29.9-35.2 [facility] MCV Auto (RBC) [Entitic vol] on 12-19-2023 MCV (RBC) [Entitic vol] 82.2 fL 80.0-94.0 [facility] Monocytes Auto (Bld) [#/Vol] on 12-19-2023 Monocytes (Bld) [#/Vol] 0.9 10 3/uL 0.3-0.8 [facility] Monocytes/100 WBC Auto (Bld) on 12-19-2023 Monocytes/100 WBC (Bld) 9.2 % 1.7-12.0 [facility] Neutrophils Auto (Bld) [#/Vo l]on 12-19-2023 Neutrophils (Bld) [#/Vol] 4.9 10 3/uL 1.4-6.5 [facility] Neutrophils/100 WBC Auto (Bl d)on 12-19-2023 Neutrophils/100 WBC (Bld) 51.4 % 43.0-75.0 [facility] No Panel Informationon 12-18 Eosinophils # (Auto) 0.3 10 3/uL 0.0-0.7 [facility] Immature Granulocyte # (Auto) 0.05 10 3/uL 0.00-0.03 [facility] Miscellaneous Test COMMENT . [facility] Comment on above: Test Ordered: [id number] Hgb Fractionation CascadeHgb F 0.0 % CB Reference Range: 0.0-2.0Hgb A 97.8 % CB Reference Range: 96.4-98.8Hgb A2 2.2 % CB Reference Range: 1.8-3.2Hgb S 0.0 % CB Reference Range: 0.0Interpretation: Comment CB Reference Range: .Normal hemoglobin present; no hemoglobin variant or betathalassemia identified.Note: Alpha thalassemia may not be detected by the HgbFractionation [place] panel. If alpha thalassemia issuspected, [facility] offers Alpha-Thalassemia DNA Analysis(#[id number]).Performed at: [address] [id number] Director: Checo Pitts PhD, Phone: [phone] Platelet mean volume Auto (B ld) [Entitic vol]on 12-19-2023 Platelet mean volume (Bld) [Entitic vol] 9.4 fL 9.5-13.5 [facility] Platelets Auto (Bld) [#/Vol] on 12-19-2023 Platelets (Bld) [#/Vol] 299 10 3/uL 150-450 [facility] RBC Auto (Bld) [#/Vol]on RBC (Bld) [#/Vol] 5.56 10 6/uL 4.70-6.10 [facility] Basophils Auto (Bld) [#/Vol] on 11-08-2023 Basophils (Bld) [#/Vol] 0.1 10 3/uL 0.0-0.1 [facility] Basophils/100 WBC Auto (Bld) on 11-08-2023 Basophils/100 WBC (Bld) 0.9 % 0.2-2.0 [facility] Eosinophils/100 WBC Auto (Bl d)on 11-08-2023 Eosinophils/100 WBC (Bld) 3.2 % 0.9-7.0 [facility] Erythrocyte distribution wid th Auto (RBC) [Ratio]on 11-08-2023 Erythrocyte distribution width (RBC) [Ratio] 17.4 % 11.0-15.0 [facility] Hematocrit Auto (Bld) [Volum e fraction]on 11-08-2023 Hematocrit (Bld) [Volume fraction] 43.5 % 42.0-54.0 [facility] Hemoglobin [Mass/volume] in Bloodon 11-08-2023 Hemoglobin (Bld) [Mass/Vol] 13.2 g/dL 14.0-18.0 [facility] Laboratory - Chemistry and C hemistry - challengeon 11-08-2023 Cobalamin (Vitamin B12) [Mass/Vol] 986.0 pg/mL 193.0-986.0 [facility] Ferritin [Mass/Vol] 14.0 ng/mL 26.0-388.0 [facility] Laboratory - Hematology and Cell countson 11-08-2023 Immature granulocytes/100 WBC (Bld) 0.2 % 0.0-0.5 [facility] Leukocytes [#/volume] correc josé for nucleated erythrocytes in Blood by Automated counon 11-08-2023 WBC corrected for nucl RBC Auto (Bld) [#/Vol] 10.0 10 3/uL 4.0-11.0 [facility] Lymphocytes Auto (Bld) [#/Vo l]on 11-08-2023 Lymphocytes (Bld) [#/Vol] 3.6 10 3/uL 1.2-3.8 [facility] Lymphocytes/100 WBC Auto (Bl d)on 11-08-2023 Lymphocytes/100 WBC (Bld) 35.5 % 20.5-60.0 [facility] MCH Auto (RBC) [Entitic mass ]on 11-08-2023 MCH (RBC) [Entitic mass] 23.9 pg 25.9-34.0 [facility] MCHC Auto (RBC) [Mass/Vol]on 11-08-2023 MCHC (RBC) [Mass/Vol] 30.3 g/dL 29.9-35.2 [facility] MCV Auto (RBC) [Entitic vol] on 11-08-2023 MCV (RBC) [Entitic vol] 78.7 fL 80.0-94.0 [facility] Monocytes Auto (Bld) [#/Vol] on 11-08-2023 Monocytes (Bld) [#/Vol] 0.9 10 3/uL 0.3-0.8 [facility] Monocytes/100 WBC Auto (Bld) on 11-08-2023 Monocytes/100 WBC (Bld) 8.5 % 1.7-12.0 [facility] Neutrophils Auto (Bld) [#/Vo l]on 11-08-2023 Neutrophils (Bld) [#/Vol] 5.2 10 3/uL 1.4-6.5 [facility] Neutrophils/100 WBC Auto (Bl d)on 11-08-2023 Neutrophils/100 WBC (Bld) 51.7 % 43.0-75.0 [facility] No Panel Informationon 11-08 Eosinophils # (Auto) 0.3 10 3/uL 0.0-0.7 [facility] Folate 19.60 ng/mL 8.60-58.90 [facility] Immature Granulocyte # (Auto) 0.02 10 3/uL 0.00-0.03 [facility] Platelet mean volume Auto (B ld) [Entitic vol]on 11-08-2023 Platelet mean volume (Bld) [Entitic vol] 9.4 fL 9.5-13.5 [facility] Platelets Auto (Bld) [#/Vol] on 11-08-2023 Platelets (Bld) [#/Vol] 384 10 3/uL 150-450 [facility] RBC Auto (Bld) [#/Vol]on RBC (Bld) [#/Vol] 5.53 10 6/uL 4.70-6.10 [facility] Pre-Certification Formon Pre-Certification Form [id number] #1.00TIFF Normal [facility] TESTOSTERONE, TOTALon 2022 Testosterone [Mass/Vol] 487 ng/dL Normal 264-916 [facility] Comment on above: Result Comment: Adul t male reference interval is based on a population of healthy nonobese males (BMI <30) between 19 and 39 years old. Joni et.al. JCEM 2017,102;0937-9722. PMID: [id number]. Performed By: #### T ESTTOT #### [facility] [address] [place] [address] Dr. Mychal Oropeza US SINGLE QUAD RT [...] by: CHRISTOFER SCHAEFFER Date: 2022-08-25 07:07 Normal [facility] TESTOSTERONE, TOTALon 2021 Testosterone [Mass/Vol] 410 ng/dL Normal 264-916 [facility] Comment on above: Result Comment: Adul t male reference interval is based on a population of healthy nonobese males (BMI <30) between 19 and 39 years old. Joni et.al. JCEM 2017,102;5402-9481. PMID: [id number]. Performed By: #### T ESTTOT #### [facility] [address] [place] [address] Dr. Mychal Oropeza CBC AUTO DIFFon 05-27-2022 BASO # 0.1 103/ul Normal 0.0-0.1 [facility] Comment on above: Performed By: #### C BC #### [facility] [address] [place] [address] Dr. Mychal Oropeza Basophils/100 WBC (Bld) 0.9 % Normal 0.2-2.0 [facility] Comment on above: Performed By: #### C BC #### [facility] [address] [address] [address] Mychal Oropeza EO # 0.7 103/ul Normal 0.0-0.7 [facility] Comment on above: Performed By: #### C BC #### [facility] [address] [place] [address] Dr. Mychal Oropeza Eosinophils/100 WBC (Bld) 6.7 % Normal 0.9-7.0 [facility] Comment on above: Performed By: #### C BC #### [facility] [address] [place] [address] Dr. Mychal Oropeza Erythrocyte distribution width (RBC) [Ratio] 12.8 % Normal 11.0-15.0 [facility] Comment on above: Performed By: #### C BC #### [facility] [address] [place] [address] Dr. Mychal Oropeza Hematocrit (Bld) [Volume fraction] 46.9 % Normal 42.0-54.0 [facility] Comment on above: Performed By: #### C BC #### [facility] [address] [place] [address] Dr. Mychal Oropeza Hemoglobin (Bld) [Mass/Vol] 16.2 g/dL Normal 14.0-18.0 [facility] Comment on above: Performed By: #### C BC #### [facility] [address] [place] [address] Dr. Mychal Oropeza IG # 0.04 10e3/ul Critically high 0.00-0.03 [facility] Comment on above: Performed By: #### C BC #### [facility] [address] [place] [address] Dr. Mychal Oropeza IG % 0.4 % Normal 0.0-0.5 [facility] Comment on above: Performed By: #### C BC #### [facility] [address] [place] [address] Dr. Mychal Oropeza LYMPH # 4.1 103/ul Critically high 1.2-3.8 [facility] Comment on above: Performed By: #### C BC #### [facility] [address] [place] [address] Dr. Mychal Oropeza Lymphocytes/100 WBC (Bld) 37.7 % Normal 20.5-60.0 [facility] Comment on above: Performed By: #### C BC #### [facility] [address] [place] [address] Dr. Mychal Oropeza MANUAL DIFF REQ NO Normal [facility] Comment on above: Performed By: #### C BC #### [facility] [address] [address] [address] Mychal Oropeza MCH (RBC) [Entitic mass] 30.7 pg Normal 25.9-34.0 [facility] Comment on above: Performed By: #### C BC #### [facility] [address] [place] [address] Dr. Mychal Oropeza MCHC (RBC) [Mass/Vol] 34.5 g/dL Normal 29.9-35.2 [facility] Comment on above: Performed By: #### C BC #### [facility] [address] [address] [address] Mychal Oropeza MCV (RBC) [Entitic vol] 88.8 fL Normal 80.0-94.0 [facility] Comment on above: Performed By: #### C BC #### [facility] [address] [place] [address] Dr. Mychal Oropeza MONO # 0.9 103/ul Critically high 0.3-0.8 [facility] Comment on above: Performed By: #### C BC #### [facility] [address] [place] [address] Dr. Mychal Oropeza Monocytes/100 WBC (Bld) 8.1 % Normal 1.7-12.0 [facility] Comment on above: Performed By: #### C BC #### [facility] [address] [place] [address] Dr. Mychal Oropeza NEUT # 5.1 103/ul Normal 1.4-6.5 [facility] Comment on above: Performed By: #### C BC #### [facility] [address] [place] [address] Dr. Mychal Oropeza Neutrophils/100 WBC (Bld) 46.2 % Normal 43.0-75.0 [facility] Comment on above: Performed By: #### C BC #### [facility] [address] [place] [address] Dr. Mychal Oropeza Platelet mean volume (Bld) [Entitic vol] 9.7 fL Normal 9.5-13.5 [facility] Comment on above: Performed By: #### C BC #### [facility] [address] [address] [address] Mychal Oropeza PLT 308 103/ul Normal 150-450 [facility] Comment on above: Performed By: #### C BC #### [facility] [address] [place] [address] Dr. Mychal Oropeza RBC 5.28 106/ul Normal 4.70-6.10 [facility] Comment on above: Performed By: #### C BC #### [facility] [address] [address] [address] Mychal Oropeza WBC 10.9 103/ul Normal 4.0-11.0 [facility] Comment on above: Performed By: #### C BC #### [facility] [address] [place] [address] Dr. Mychal Oropeza GLYCOHEMOGLOBIN A1Con 2021 ADA RECOMMENDATION SEE BELOW Normal [facility] Comment on above: Result Comment: ADA RECOMMENDED LIMIT 4.0 - 6.0 ADA THERAPEUTIC TARGET < 7.0 ACTION SUGGESTED > 7.0 Performed By: #### A 1C #### [facility] [address] [place] [address] Dr. Mychal Oropeza Glucose [Mass/Vol] 108 mg/dL Normal [facility] Comment on above: Performed By: #### A 1C #### [facility] [address] [place] [address] Dr. Mychal Oropeza HbA1c (Bld) [Mass fraction] 5.4 % Normal 4.5-6.2 [facility] Comment on above: Performed By: #### A 1C #### [facility] [address] [place] [address] Dr. Mychal Oropeza LIPID PROFILEon 05-27-2022 CHOL-HDL RATIO NORM SEE BELOW Normal [facility] Comment on above: Result Comment: 3.3 - 4.4 LOW RISK 4.4 - 7.1 AVERAGE RISK 7.1 - 11.0 MODERATE RISK >11.0 HIGH RISK Performed By: #### T SH, LIPID, CMP #### [facility] [address] [address] [address] Mychal Oropeza Cholesterol [Mass/Vol] 207 mg/dL Critically high <=200 [facility] Comment on above: Performed By: #### T SH, LIPID, CMP #### [facility] [address] [address] [address] Mychal Oropeza Cholesterol in HDL [Mass/Vol] 47 mg/dL Normal 40-60 [facility] Comment on above: Performed By: #### T SH, LIPID, CMP #### [facility] [address] [address] [address] Mychal Oropeza Cholesterol in LDL [Mass/Vol] 122.4 mg/dL Normal [facility] Comment on above: Performed By: #### T SH, LIPID, CMP #### [facility] [address] [address] [address] Mychal Oropeza Cholesterol.total/Cholest corbin in HDL [Mass ratio] 4.4 {ratio} Normal [facility] Comment on above: Performed By: #### T SH, LIPID, CMP #### [facility] [address] [address] [address] Mychal Oropeza HDL NORMAL > or = 60 mg/dl - LOW CARDIOVASCULAR RISK <40 mg/dl - HIGH CARDIOVASCULAR RISK Normal [facility] Comment on above: Performed By: #### T SH, LIPID, CMP #### [facility] [address] [address] [address] Mychal Oropeza LDL CALC NORMAL SEE BELOW Normal [facility] Comment on above: Result Comment: <100 mg/dl OPTIMAL 100 - 129 mg/dl NEAR OR ABOVE OPTIMAL 130 - 159 mg/dl BORDERLINE HIGH 160 - 189 mg/dl HIGH >190 mg/dl VERY HIGH Performed By: #### T SH, LIPID, CMP #### [facility] [address] [address] [address] Mychal Oropeza Triglyceride [Mass/Vol] 188 mg/dL Critically high <=150 [facility] Comment on above: Performed By: #### T SH, LIPID, CMP #### [facility] [address] [address] [address] Mychal Oropeza VLDL CALC 37.6 mg/dL Normal [facility] Comment on above: Performed By: #### T SH, LIPID, CMP #### [facility] [address] [address] [address] Mychal Oropeza PROF 14(COMP METB)on 022 Albumin [Mass/Vol] 3.9 g/dL Normal 3.4-5.0 [facility] Comment on above: Performed By: #### T SH, LIPID, CMP #### [facility] [address] [place] [address] Dr. Mychal Oropeza Albumin/Globulin [Mass ratio] 1.1 {ratio} Normal [facility] Comment on above: Performed By: #### T KADIE, LIPID, CMP #### [facility] [address] [place] [address] Dr. Mychal Oropeza ALP [Catalytic activity/Vol] 77 U/L Normal 46-116 [facility] Comment on above: Performed By: #### T SH, LIPID, CMP #### [facility] [address] [place] [address] Dr. Mychal Oropeza ALT [Catalytic activity/Vol] 56 U/L Normal 16-63 [facility] Comment on above: Performed By: #### T SH, LIPID, CMP #### [facility] [address] [place] [address] Dr. Mychal Oropeza Anion gap [Moles/Vol] 8.6 mmol/L Normal [facility] Comment on above: Performed By: #### T SH, LIPID, CMP #### [facility] [address] [place] [address] Dr. Mychal Oropeza AST [Catalytic activity/Vol] 30 U/L Normal 15-37 [facility] Comment on above: Performed By: #### T SH, LIPID, CMP #### [facility] [address] [place] [address] Dr. Mychal Oropeza Bilirubin [Mass/Vol] 0.6 mg/dL Normal 0.2-1.0 [facility] Comment on above: Performed By: #### T SH, LIPID, CMP #### [facility] [address] [address] [address] Mychal Oropeza Calcium [Mass/Vol] 9.2 mg/dL Normal 8.5-10.1 [facility] Comment on above: Performed By: #### T SH, LIPID, CMP #### [facility] [address] [place] [address] Dr. Mychal Oropeza Chloride [Moles/Vol] 100 mmol/L Normal 98-107 [facility] Comment on above: Performed By: #### T SH, LIPID, CMP #### [facility] [address] [place] [address] Dr. Mychal Oropeza CO2 [Moles/Vol] 30.0 mmol/L Normal 21.0-32.0 [facility] Comment on above: Performed By: #### T SH, LIPID, CMP #### [facility] [address] [place] [address] Dr. Mychal Oropeza Creatinine [Mass/Vol] 1.37 mg/dL Critically high 0.70-1.30 [facility] Comment on above: Performed By: #### T SH, LIPID, CMP #### [facility] [address] [place] [address] Dr. Mychal Oropeza EGFR-AF ZAMBIAN >60 Normal >=60 [facility] Comment on above: Performed By: #### T SH, LIPID, CMP #### [facility] [address] [place] [address] Dr. Mychal Oropeza EGFR-NON AF ZAMBIAN 55 mL/min/1.73m2 Critically low >=60 [facility] Comment on above: Performed By: #### T SH, LIPID, CMP #### [facility] [address] [place] [address] Dr. Mychal Oropeza Globulin (S) [Mass/Vol] 3.7 g/dL Normal [facility] Comment on above: Performed By: #### T SH, LIPID, CMP #### [facility] [address] [place] [address] Dr. Mychal Oropeza Glucose [Mass/Vol] 111 mg/dL Critically high 74-106 [facility] Comment on above: Performed By: #### T SH, LIPID, CMP #### [facility] [address] [address] [address] Mychal Oropeza Potassium [Moles/Vol] 3.6 mmol/L Normal 3.5-5.1 [facility] Comment on above: Performed By: #### T SH, LIPID, CMP #### [facility] [address] [place] [address] Dr. Mychal Oropeza Protein [Mass/Vol] 7.6 g/dL Normal 6.4-8.2 [facility] Comment on above: Performed By: #### T SH, LIPID, CMP #### [facility] [address] [address] [address] Mychal Oropeza Sodium [Moles/Vol] 135 mmol/L Critically low 136-145 [facility] Comment on above: Performed By: #### T SH, LIPID, CMP #### [facility] [address] [place] [address] Dr. Mychal Oropeza Urea nitrogen [Mass/Vol] 14.0 mg/dL Normal 7.0-18.0 [facility] Comment on above: Performed By: #### T SH, LIPID, CMP #### [facility] [address] [place] [address] Dr. Mychal Oropeza Urea nitrogen/Creatinine [Mass ratio] 10.2 mg/mg Normal [facility] Comment on above: Performed By: #### T SH, LIPID, CMP #### [facility] [address] [place] [address] Dr. Mychal Oropeza TSHon 05-27-2022 TSH 2.907 uIU/mL Normal 0.358-3.740 [facility] Comment on above: Performed By: #### T SH, LIPID, CMP #### [facility] [address] [place] [address] Dr. Mychal Oropeza TESTOSTERONE, TOTALon 2021 Testosterone [Mass/Vol] 324 ng/dL Normal 264-916 [facility] Comment on above: Result Comment: Adul t male reference interval is based on a population of healthy nonobese males (BMI <30) between 19 and 39 years old. bouchra Quinones.al. JCEM 2017,102;1019-6526. PMID: [id number]. Performed By: #### [facility] #### [facility] [address] [place] [address] Dr. Mychal Oropeza XR SPINE CERVICAL WITH [...] fair flexion. No instability is noted. Normal [place] XR SPINE LUMBAR W BENDINGon 02-10-2021 XR [...] good range of motion without instability. Normal [place] XR SPINE LUMBAR W BENDINGOrd ered By: Maik Barbosa on 02-10-2021 IMPRESSION: Lumbar spine visually is fairly well preserved. There is no evidence of fracture, listhesis, significant disc space narrowing or major degenerative changes. There is a very good range of motion without instability. [facility] EXAM: XR SPINE LUMBAR W BENDING [...] motion. There is no listhesis or instability. [facility] - 02/10/2021 4:52 PM EDT [...] very good range of motion without instability. [facility] Vital Signs Date Time Vital Sign Value Performing Clinician Facility 10-16-2024 14:24-0500 Body height 170.18 cm [facility] 10-16-2024 14:24-0500 Body mass index (BMI) [Ratio] 35.2 kg/m2 [facility] 10-16-2024 14:24-0500 Body temperature 98.7 [degF] [facility] 10-16-2024 14:24-0500 Body weight 102.2 kg [facility] 10-16-2024 14:24-0500 Diastolic blood pressure 70 mm[Hg] [facility] 10-16-2024 14:24-0500 Heart rate 86 /min [facility] 10-16-2024 14:24-0500 SaO2% (BldA) [Mass fraction] 96 % [facility] 10-16-2024 14:24-0500 Systolic blood pressure 116 mm[Hg] [facility] 09-16-2024 15:18-0500 Body height 170.18 cm [facility] 09-16-2024 15:18-0500 Body mass index (BMI) [Ratio] 34.7 kg/m2 [facility] 09-16-2024 15:18-0500 Body weight 100.69 kg [facility] 09-16-2024 15:18-0500 Diastolic blood pressure 74 mm[Hg] [facility] 09-16-2024 15:18-0500 Heart rate 70 /min [facility] 09-16-2024 15:18-0500 Systolic blood pressure 106 mm[Hg] [facility] 05-15-2024 15:36-0400 Body height 172.7 cm Blas Renumor [employer] MARKET[employer] SPECIALIST Work Phone: [facility] 05-15-2024 15:36-0400 Diastolic blood pressure 84 mm[Hg] Blas Renumor D[employer] MARKETING SPECIALIST Work Phone: [facility] 05-15-2024 15:36-0400 Heart rate 70 /min Blas Renumor D[employer] MARKETING SPECIALIST Work Phone: [facility] 05-15-2024 15:36-0400 SaO2% (BldA) [Mass fraction] 94 % Blas Renumor DIG[employer] MARKETING SPECIALIST Work Phone: [facility] 05-15-2024 15:36-0400 Systolic blood pressure 122 mm[Hg] Blas Renumor D[employer] MARKETING SPECIALIST Work Phone: [facility] 08-31-2023 15:30-0500 Body height 170.18 cm Kell Bowling Other [facility] Other 08-31-2023 15:30-0500 Body mass index (BMI) [Ratio] 33.04 kg/m2 Kell Bowling Other [facility] Other 08-31-2023 15:30-0500 Body weight 95.71 kg Kell Bowling Other [facility] Other 08-31-2023 15:30-0500 Diastolic blood pressure 77 mm[Hg] Kell Bowling Other [facility] Other 08-31-2023 15:30-0500 Systolic blood pressure 119 mm[Hg] Kell Bowling Other [facility] Other 08-01-2023 08:30-0500 Body height 170.18 cm Kell Bowling Other [facility] Other 08-01-2023 08:30-0500 Body mass index (BMI) [Ratio] 35.14 kg/m2 Kell Bowling Other [facility] Other 08-01-2023 08:30-0500 Body weight 101.79 kg Kell Bowling Other [facility] Other 08-01-2023 08:30-0500 Diastolic blood pressure 82 mm[Hg] Kell Bowling Other [facility] Other 08-01-2023 08:30-0500 Systolic blood pressure 118 mm[Hg] Kell Bowling Other [facility] Other 04-16-2021 12:05-0400 Diastolic blood pressure 97 mm[Hg] Maik Barbosa MD Work Phone: [facility] 04-16-2021 12:05-0400 Heart rate 54 /min Maik Barbosa MD Work Phone: [facility] 04-16-2021 12:05-0400 Respiratory rate 16 /min Maik Barbosa MD Work Phone: [facility] 04-16-2021 12:05-0400 SaO2% (BldA) [Mass fraction] 95 % Maik Barbosa MD Work Phone: [facility] 04-16-2021 12:05-0400 Systolic blood pressure 142 mm[Hg] Maik Barbosa MD Work Phone: [facility] 03-17-2021 08:04-0400 Body height 170.2 cm Maik Barbosa MD Work Phone: [facility] 03-17-2021 08:04-0400 Body mass index (BMI) [Ratio] 34.61 kg/m2 Maik Barbosa MD Work Phone: [facility] 03-17-2021 08:04-0400 Body weight 100.25 kg Maik Barbosa MD Work Phone: [facility] 03-17-2021 08:04-0400 Diastolic blood pressure 93 mm[Hg] Maik Barbosa MD Work Phone: [facility] 03-17-2021 08:04-0400 Heart rate 74 /min Maik Barbosa MD Work Phone: [facility] 03-17-2021 08:04-0400 Respiratory rate 20 /min Maik Barbosa MD Work Phone: [facility] 03-17-2021 08:04-0400 SaO2% (BldA) [Mass fraction] 96 % Maik Barbosa MD Work Phone: [facility] 03-17-2021 08:04-0400 Systolic blood pressure 132 mm[Hg] Maik Barbosa MD Work Phone: [facility] 02-24-2021 12:02-0400 Diastolic blood pressure 100 mm[Hg] Maik Barbosa MD Work Phone: [facility] 02-24-2021 12:02-0400 Heart rate 55 /min Maik Barbosa MD Work Phone: [facility] 02-24-2021 12:02-0400 Respiratory rate 18 /min Maik Barbosa MD Work Phone: [facility] 02-24-2021 12:02-0400 SaO2% (BldA) [Mass fraction] 95 % Maik Barbosa MD Work Phone: [facility] 02-24-2021 12:02-0400 Systolic blood pressure 141 mm[Hg] Maik Barbosa MD Work Phone: [facility] 02-10-2021 11:46-0400 Body height 170.2 cm Maik Barbosa MD Work Phone: [facility] 02-10-2021 11:46-0400 Body mass index (BMI) [Ratio] 34.61 kg/m2 Maik Barbosa MD Work Phone: [facility] 02-10-2021 11:46-0400 Body weight 100.25 kg Maik Barbosa MD Work Phone: [facility] 02-10-2021 11:46-0400 Diastolic blood pressure 81 mm[Hg] Maik Barbosa MD Work Phone: [facility] 02-10-2021 11:46-0400 Heart rate 64 /min Maik Barbosa MD Work Phone: [facility] 02-10-2021 11:46-0400 Respiratory rate 18 /min Maik Barbosa MD Work Phone: [facility] 02-10-2021 11:46-0400 SaO2% (BldA) [Mass fraction] 99 % Maik Barbosa MD Work Phone: [facility] 02-10-2021 11:46-0400 Systolic blood pressure 121 mm[Hg] Maik Barbosa MD Work Phone: [facility] Encounters Encounter Date Encounter Type Care Provider Facility Start: 08-06-2025 ambulatory Chata Page Facility:[facility] Start: 05-05-2025 End: 05-05-2025 ambulatory Luis Fairchild MD Facility:[facility] Start: 03-24-2025 End: 03-24-2025 ambulatory Luis Fairchild MD Facility:[facility] Start: 10-16-2024 End: 10-16-2024 ambulatory [facility] Work Phone: Start: 10-16-2024 End: 10-16-2024 Patient encounter procedure [facility] Work Phone: Start: 09-16-2024 End: 09-16-2024 ambulatory [facility] Work Phone: Start: 09-16-2024 End: 09-16-2024 Encounter for general adult medical examination without abnormal findings [facility] Start: 09-16-2024 End: 09-16-2024 Patient encounter procedure [facility] Work Phone: Start: 07-31-2024 End: 07-31-2024 ambulatory Chata Page Facility:[facility] Start: 07-30-2024 Non-patient / Non-visit [facility] Work Phone: Start: 07-30-2024 Patient encounter status [facility] Start: 07-29-2024 Non-patient / Non-visit [facility] Work Phone: Start: 07-22-2024 End: 07-22-2024 ambulatory Luis Fairchild MD Facility:[facility] Start: 05-15-2024 End: 05-15-2024 ambulatory BLAS FRAZIER Not Available Start: 05-15-2024 End: 05-15-2024 Office outpatient visit 25 minutes Blas Frazier [employer] MARKETING SPECIALIST Work Phone: [facility] Comment on above: PLMD (periodic limb movement disorder) (Primary Dx); Hypersomnia; JOSÉ (obstructive sleep apnea); Snoring Start: 05-15-2024 End: 05-15-2024 Bamboo flowsheet Blas Renumor D[employer] MARKETING SPECIALIST [facility] Start: 05-15-2024 End: 05-15-2024 Bamboo flowsheet Blas Renumor DIGITAL MARKETING SPECIALIST [facility] Phone[facility] Start: 02-21-2024 End: 02-21-2024 ambulatory MINA PINEDO Not Available Start: 12-26-2023 End: 12-26-2023 ambulatory Kell Bowling Facility:[facility] Start: 12-26-2023 Non-patient / Non-visit [facility] Work Phone: Start: 12-19-2023 Non-patient / Non-visit [facility] Work Phone: Start: 11-20-2023 Non-patient / Non-visit [facility] Work Phone: Start: 11-08-2023 Non-patient / Non-visit [facility] Work Phone: Start: 10-02-2023 End: 10-02-2023 Patient encounter procedure [facility]- Start: 08-31-2023 End: 08-31-2023 ambulatory Kell Bowling Other [facility] Other Start: 08-31-2023 Office outpatient vi sit 15 minutes Kell Bowling [facility] Start: 08-01-2023 End: 08-01-2023 ambulatory Kell Bowling Other [facility] Other Start: 08-01-2023 Encounter for genera l adult medical examination without abnormal findings Kell Bowling [facility] Start: 08-01-2023 Periodic preventive med est patient 40-64yrs Kell Bowling [facility] Start: 01-06-2023 End: 01-07-[address] [...] examination without abnormal findings DR KELL BOWLING [facility] Start: 05-27-2022 End: 05-28-[address] KELL BOWLING Facility:[facility] Start: 05-27-2022 End: 05-28-2022 Encounter for general adult medical examination without abnormal findings DR KELL BOWLING Facility:[facility] Start: 01-19-2022 End: 01-20-[address] KELL BOWLING Facility:[facility] Start: 04-16-2021 End: 04-16-2021 Patient encounter procedure Maik Barbosa MD [facility] Comment on above: Lumbar spondylosis ( Primary Dx); Chronic pain syndrome; Myofascial pain Start: 03-17-2021 End: 03-17-2021 Office outpatient visit 15 minutes Maik Barbosa MD Work Phone: [facility] Comment on above: Lumbar spondylosis ( Primary Dx); Lumbar radiculopathy; Spinal stenosis of cervical region; Chronic pain syndrome; Myofascial pain Start: 02-24-2021 End: 02-24-2021 Clinical Support Encounter Maik Barbosa MD Work Phone: [facility] Comment on above: Myofascial pain (Ara reji Dx) Start: 02-10-2021 End: 02-10-2021 Subsequent hospital visit by physician Maik Barbosa MD Work Phone: [facility] Comment on above: Arrived Start: 02-10-2021 End: 02-10-2021 Office outpatient new 45 minutes Maik Barbosa MD Work Phone: [facility] Comment on above: Myofascial pain (Ara reji Dx); Arthropathy of cervical facet joint; Spondylosis of lumbar region without myelopathy or radiculopathy; Chronic pain syndrome; Compliance with medication regimen Procedures Date Procedure Procedure Detail Performing Clinician Start: 10-16-2024 Quick Strep (POC) Start: 05-27-[address] KELL BOWLING Comment on above: Performed By: #### P SASC #### [facility] [address] [place] [address] Dr. Mychal Oropeza Start: 02-10-2021 Radex spine lumbscrl compl w/bending views min 6 Maik Barbosa MD Work Phone: Plan of Treatment Date Care Activity Detail Author Start: 05-21-2021 End: 05-21-2021 Patient encounter procedure 05/21/2021 Office Visit Anesthesiology Pain Mgt Maik Barbosa MD [address] [place] [address] [facility] Start: 05-12-2021 Influenza vaccination A [facility] Start: 05-07-2021 End: 05-07-2021 Patient encounter procedure 05/07/2021 Office Visit Anesthesiology Pain Mgt Maik Barbosa MD [address] [place] [address] [facility] Start: 05-03-2021 End: 05-03-2021 Patient encounter procedure 05/03/2021 Office Visit Anesthesiology Pain MgMaik Kinney MD [address] [place] [address] [phone] [facility] Start: 04-27-2021 End: 04-27-2021 Patient encounter procedure 04/27/2021 Office Visit Anesthesiology Pain Mgt Maik Barbosa MD [address] [place] [address] [facility] Start: 03-17-2021 End: 03-17-2021 Patient encounter procedure 03/17/2021 Office Visit Anesthesiology Pain Mgt Maik Barbosa MD [address] [place] [address] [phone] [facility] Start: 02-24-2021 End: 02-24-2021 Patient encounter procedure 02/24/2021 Office Visit Anesthesiology Pain Mgt Maik Barbosa MD [address] [place] [address] [phone] [facility] Start: 02-10-2021 End: 02-11-2021 DRUG SCREEN MED COMPLIANCE I DRUG SCREEN MED COMPLIANCE I Lab Routine Compliance with medication regimen Expected: 02/10/2021, Expires: 02/11/2021 [facility] Comment on above: Expected: 02/10/2021 , Expires: 02/11/2021 Start: 02-08-2020 Prostate specific antigen measurement PROSTATE CANCER SCREENING DISCUSSION [facility] Start: 02-08-2020 Zoster vaccine hzv l wilmar for subcutaneous use ZOSTER (SHINGLES) VACCINE (1 of 2) [facility] Start: 2015 Colonoscopy COLORECTAL CAN CER SCREENING DISCUSSION [facility] Start: 2010 Fasting lipid profile LIPID SCREENIN G [facility] Start: 1989 Third diphtheria, tetanus and acellular pertussis (DTaP) vaccination TDAP (ADULT) [facility] Start: 02-08-1988 Tetanus vaccination TETANUS [facility] Start: 1985 HIV screening HIV SCREENING DISCUSSI ON [facility] Start: 1982 COVID-19 VACCINE (1) COVID-19 VACCIN E (1) [facility] Start: 1970 Hepatitis C antibody , confirmatory test HEPATITIS C VIRUS SCREENING [facility] Payers Date Payer Category Payer Self-pay 2023 Unknown [id number] 2022 Unknown [id number] 2022 Unknown [id number] 2019 Unknown [id number] 2018 Unknown [id number] 1. [id number] 1970 Unknown [id number] 2.16.84 0.1.776820.3.579.2.593 1970 Unknown [id number] 2.16.84 0.1.380448.3.579.2.593 1970 Unknown [id number] 2.16.84 0.1.000421.3.579.2.593 1970 Unknown [id number] 2.16.84 0.1.796578.3.579.2.593 1970 Unknown [id number] 2.16.84 0.1.468289.3.579.2.593 1970 Unknown [id number] 2.16.84 0.1.413102.3.579.2.593 1970 Unknown [id number] 2.16.84 0.1.400828.3.579.2.593 1970 Unknown [id number] 2.16.84 0.1.253126.3.579.2.593 1970 Unknown [id number] 2.16.84 0.1.426291.3.579.2.1259 1970 Unknown [id number] 2.16.84 0.1.959082.3.579.2.1259 1970 Unknown [id number] 2.16.8 40.1.380893.3.579.2.727 1970 Unknown [id number] 2.16.8 40.1.523228.3.579.2.727 1970 Unknown [id number] 2.16. 840.1.898708.3.579.2.196 1970 Unknown [id number] 2.16. 840.1.662907.3.579.2.196 1970 Unknown [id number] 2.16. 840.1.094757.3.579.2.196 1959 Self-pay [id number] Unknown [id number] 2.16.84 0.1.322468.3.579.2.593 Unknown [id number] 2.16.8 40.1.963757.3.579.2.531 Social History Date Type Detail Facility Start: 02-10-2021 End: 02-21-2024 Tobacco smoking status MAIS Never smoker [facility] Start: 02-10-2021 End: 02-21-2024 Tobacco use and exposure Never used [facility] Start: 02-10-2021 End: 05-15-2024 Alcohol intake Current drinker of alcohol (finding) [facility] Start: 02-10-2021 End: 05-15-2024 Alcohol intake [facility] Start: 02-10-2021 Alcohol Comment 5 beers/week [facility] Start: 1970 Sex Assigned At Not on file A [facility] Start: 02-21-2024 End: 05-15-2024 Sex Assigned At [facility] Other Start: 1970 Sex Assigned At Male F [facility] Tobacco smoking stat us MAIS Unknown if ever smoked [facility] Work Phone: Start: 09-16-2024 End: 10-16-2024 Sex Male (finding) [facility] Clinical Notes 02-10-2021 to 09-16-2024 Note Date & Type Note Facility 09-16-2024 Evaluation note Diagnosis Onset Date Resolution Elevated serum creatinine acute September 16 2:49pm Wellness examination acute Tj mckinley 2024 2:49pm Influenza A acute October 16, 2024 2:16pm [facility] Work Phone: 1(849) 172-256011-20-2024 NotePatient Education Urology Erectile Dysfunction Erectile dysfunction [...] these instructions at home: Medicines ??? Take elgj-dzr-oanspym and prescription medicines only as told by [...] ??? Do not u (more content not included)...[facility] History of Present illness Narrative* Blas [...] a different pressure . . . [place] Sleepiness Scale is 10 Compliance download reviewed [...] was counseled on the risks of stroke, NC, and sudden with JOSÉ, along with the need for compliance with the CPAP/BiPAP treatment. The patient was counseled on proper sleep hygiene and adequate hours of sleep. Return to clinic: 3-4 months documented in this encounterLafayette [facility] [id number] Evaluation note* Encounter Date Diagnosis Assessment Notes [...] index [BMI] 33.0-33.9, adult (ICD-10 - Z68.33) [facility] Other 11-21-2023 Evaluation note* Encounter Date Diagnosis [...] (ICD-10 - M54.50) [facility]. He hopes to lessen his use of NSAIDs to improve his renal function. Jul, Other chronic pain (ICD-10 - G89.29) Jul, JOSÉ (obstructive sleep apnea) (ICD-10 - G47.33) Form completed for [facility]. Jul, Class 2 obesity [...] to ER and Follow-up with me immediately. [facility] Other 08-06-2021 History and physical note* Maik aBrbosa MD - 04/16/2021 11:30 AM EDT HPI: [...] bilateral lumbar facet block documented in this [facility]08-06-2021 History of Present illness Narrative* Humera Genao RN - 04/16/2021 11:30 AM EDT CHELSEA Alaniz RN RT - S RT Zach MATERIAL HAULER - N/A GENERAL FARM MANAGER - S. Chadwick, RN Site cleansed with hibiclens. * Maik [...] and earlier as needed. documented in this encounterSouthwest [facility] HospitalF-[facility] [id number] Instructions* Patient Instructions* Geovanna Degroot RN - 04/16/2021 11:30 AM EDT [employer] [facility] Pain Management WHAT TO EXPECT AFTER A PROCEDURE Follow up appointment: Call the office ([phone]) if you have any questions or develop [...] to call us at . Thank you, [facility] History of Present illness Narrative* Maik [...] tried OTC tylenol, celebrex with somemild relief. [place]asket has helped in the past, but would [...] Denies dysuria or frequency documented in this [facility]07-07-2021 Instructions* Patient Instructions* Geovanna Degroot RN [...] complications are extremely rare. documented in this [facility]06-16-2021 History and physical note* Maik Barbosa [...] trapezius, and lumbar paraspinal documented [facility] this 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 [...] Denies dysuria or frequency documented in this [facility]06-02-2021 History of Present illness Narrative* Maik [...] Social Gatherings with Friends and Family: Attends [employer] Services: Active Member of Clubs or Organizations: [...] tried OTC tylenol, celebrex with somemild relief. [place] has helped in the past, but would [...] within the last year. [facility] in [facility] Instructions* Patient Instructions* Geovanna Degroot RN [...] read the attached handout from the [employer] [place] [employer] with guidelines and recommendations for [...] complications are extremely rare. documented in this encounterCh[facility] SystemEvaluation note* Diagnosis Myofascial pain- Primary Mylagia and myositis, unspecified Arthropathy of cervical facet joint Cervical spondylosis without myelopathy Spondylosis of lumbar region without myelopathy or radiculopathy Lumbosacral spondylosis without myelopathy Chronic pain syndrome Compliance with medication regimen [facility] Diagnosis Spondylosis of lumbar region without myelopathy or radiculopathy Lumbosacral spondylosis without myelopathy [facility]* Diagnosis Myofascial pain- Primary Mylagia and myositis, unspecified [facility]* Diagnosis Lumbar spondylosis- Primary Lumbosacral spondylosis without myelopathy Lumbar radiculopathy Thoracic or lumbosacral neuritis or radiculitis, unspecified Spinal stenosis of cervical region Spinal stenosis in cervical region Chronic pain syndrome Myofascial pain Mylagia and myositis, unspecified [facility]* Diagnosis Lumbar spondylosis- Primary Lumbosacral spondylosis without myelopathy Chronic pain syndrome Myofascial pain Mylagia and myositis, unspecified documented in this encounter [facility] noteNo assessment information availableMedina Hospital Work Phone: Evaluation note* Diagnosis PLMD (periodic limb movement disorder)- Primary Periodic limb movement disorder Hypersomnia Hypersomnia, unspecified JOSÉ (obstructive sleep apnea) Obstructive sleep apnea (adult) (pediatric) Snoring Other dyspnea and respiratory abnormality [facility]* Diagnosis Onset Date Resolution Status Admit Date Elevated serum creatinine acute September 16, 2024 2:49pm Wellness examination acute 2024 2:49pm [facility] Work Phone: History general Narrative - Reported* Type Description Date Medical History Elevated cholesterol with elevat ed triglycerides Medical History Low serum testosterone level Medical History Lumbar pain Medical History Hypertension Medical History Diverticulosis Surgical History R shoulder arthroscopy Surgical History FB R wrist Surgical History Umbilical hernia repair 07/12/20 23 Surgical History Colonoscopy 06/25/2023 Hospitalization History SEE SURGICAL HX [facility] Other Reason for Referral Status Reason Specialty Diagnoses / Procedures Referred By Contact Referred To Contact Auth Not Needed Diagnoses Myofascial pain Chronic pain syndrome Maik Barbosa MD [address] [place] [address] Scheduling Instructions Please PA and schedule: neck and back TPI (pt will need a [address] Barbosa) Reason *FU 08/08 chronic lumbar pain, would benefit from less NSAID use. Diagnosis 1 Low back pain, unspe cified (M54.50) Referral Organization [facility] Referring Provider First Name Kell Referring Provider Last Name Tawnya Referring Provider Specialty Family [facility] Referred Organization [facility] Referred Address [address], [place],[address] Referred Provider Specialty Pain Medicin e Referral Priority Routine General Notes Kenneth Es 05:14:13 PM >received today, attachments made, notes locked, referral faxed Clinical Notes f: [phone] Summary Purpose Family History No Family History Records Found Relationship Condition Age at Onset Recorded Date/T mita father Hypertension Unknown Not Specified Unknown Relationship Condition Age at Onset Recorded Date/T mita father Hypertension Unknown mother Unknown Advance Directives No Advanced Directives Records [...] Visit Admit Date Elevated serum creatinine September 16 2:49pm Wellness examination September 16, 2024 2 :49pm Influenza A October 16, 2024 2 :16pm Additional Source Comments Reason for Visit (unrecogniz ed section and content) Reason Comments Pain Reason Comments Neck Pain Status Reason Specialty Diagnoses / Procedures Referre d By Contact Referred To Contact Closed Diagnoses Myofascial pain Chronic pain syndrome Maik Barbosa MD [address] [place] [address] Reason Comments Pain Specialty Diagnoses / Procedures Referred By Contac t Referred To Contact Diagnoses Lumbar facet arthropathy Maik Barbosa MD [address] [place] [address] Referral ID Status Reason Start Date Expiration Date Visits Re quested Visits Authorized [id number] Closed 04/14/2021 05/09/2022 1 1 (unrecognized sect ion and content) No Status Records FoundNo Status Records FoundNo Status Records FoundNo Status Records FoundNo Status Records FoundNo Status Records Found INFORMATION SOURCE (unrecogn ized section and content) DATE CREATED AUTHOR 05/10/2021 [facility] DATE CREATED AUTHOR AUTHOR'S ORGANIZ ATION 01/13/2023 [facility] DATE CREATED AUTHOR AUTHOR'S ORGANIZ ATION 12/28/2023 [facility] DATE CREATED AUTHOR AUTHOR'S ORGANIZ ATION 05/17/2024 [facility] [place] DATE CREATED AUTHOR AUTHOR'S ORGANIZ ATION 08/02/2024 [facility] DATE CREATED AUTHOR AUTHOR'S ORGANIZ ATION 05/10/2025 [facility] Care Teams (unrecognized sec tion and content) [...] September 16, 2024 End: September 16, 2024 Nursing Resident Relationship Specialty Start Date End Date Kell Bowling MD [address] [place] [address] PCP - General Family Medicine 02/10/21 Team [...] December 26, 2023 End: December 26, 2023 Nursing Resident Relationship Specialty Start Date End Date Kell Bowling MD [address] [place] [address] PCP - General Family Medicine 02/21/24 Nursing Resident Relationship Specialty Start Date End Date Kell Bowling MD [address] [place] [address] PCP - General Family Medicine 02/21/24 Team Status: Inactive Member Role Status Dates Kell Bolwing MD Primary Care Provider Active Start: October 16, 2024 End: October 16, 2024 Geovanna Clarke APRN DIGITAL MARKETING SPECIALIST-C Attending Provider Active Start: October 16, 2024 [...] BE BASED ON THE PRIMARY CLINICAL RECORDS. [facility]. provides no warranty or guarantee of the accuracy or completeness of information in this document.
== END 2025-05-15 15:23 | disposition home or self-care (01) ==
LOC: PM 15:22
PROVIDERS: PCP Family Medicine; Visit Provider Nurse Practitioner
DX: M46.1 Sacroiliitis, not elsewhere classified (principal); M48.062 Spinal stenosis, lumbar region with neurogenic claudication; M79.18 Myalgia, other site; M47.816 Spondylosis without myelopathy or radiculopathy, lumbar region
CPT/HCPCS: G0463

== ENCOUNTER 2025-07-08 09:55 | Outpatient (OUT) | payer BC, SELFPAY | END 2025-07-08 09:56 | disposition home or self-care (01) | LOC: LAB 09:56 | PROVIDERS: PCP Family Medicine; Visit Provider Urology | DX: E29.1 Testicular hypofunction (principal) | CPT/HCPCS: 36415; 84403 ==

== ENCOUNTER 2025-07-09 15:01 | Outpatient (OUT) | payer BC, SELFPAY ==
--- OUTSIDE RECORDS SUMMARY | 2025-07-09 15:06 | XMS_ITS | CCD ---
Author Organization [facility] Care Team Providers Care Grant Administrator Name Role Phone Kell Bowling MD Primary [...] Monet Primary Care Unavailable GRRONDA ., DR OCNNIE Monet Admitting Unavaila ble PEÑA ., DR [...] DR KELL Monet Consulting Unavailable BOWLING, DR KLEL Monet Primary Care Unavailable Kell Bowling Unavailable Kell Bowling Primary Care Unavailable Margaux Estrada Attending Unavailable Margaux Estrada Admitting Unavailable MINA PINEDO Attending Unavailable BLAS FRAZIER Attending Unavailable Chata Page Attending Unavailable Chata Page Attending Unavailable Kell Bowling MD Primary Care Provider [phone] Gurinder FERMIN, Luis Stallings Attending Unavailable Gurinder FERMIN, Luis Stallings Attending Unavailable Gurinder FERMIN, Luis Stallings Attending Unavailable Allergies Allergy ClassificationReported Allergen(s)Allergy TypeDate of OnsetReaction(s) Facility (2 sources)patient allergy list reviewed by nurse or physiciaPropensity to adverse cjmvzfeai81-39-5470Edluhyf:RenewData Other (2 sources)Allergies ReconciledPropensity to adverse reactionsHouse Of The Good SamaritanJoinMe@ Other Medications Current Medications MedicationDrug Class(es)DatesSig (Normalized)Sig (Original)Amoxicillin (1 source)Penicillin-class AntibacterialAmoxicillin ActiveAtenolol / Chlorthalidone (18 sources)Thiazide-like Diuretic, beta-Adrenergic BlockerStart: 16-04-9168iama 1 tablet by mouth once dailyAtenolol-Chlorthalidone 50-25 mg tablet Active 0 .ROUTE .COMPLEX May 15, 2024 12:22pm TAKE 1 TABLET BY MOUTH EVERY DAY Start: 07-00-9807tiog 1 tablet by mouth once dailyatenolol-chlorthalidone (Tenoretic) 50-25 MG tablet Take 1 tablet by mouth Daily 02/15/2024 ActiveStart: 11-20-2023 End: 29-34-8249dhto 1 tablet by mouth once dailyAtenolol-Chlorthalidone 50-25 mg tablet Discontinued 0 .ROUTE .COMPLEX November 20, 2023 12:09pm May 15, 2024 12:23pm TAKE 1 TABLET BY MOUTH EVERY DAYStart: 65-66-3189tqch 1 tablet by mouth once dailyAtenolol-Chlorthalidone Active 0 .ROUTE .COMPLEX November 20, 2023 1:09pm TAKE 1 TABLET BY MOUTH EVERY DAYStart: 11-20-2023 End: 22-89-8314nxvl 1 tablet by mouth once dailyAtenolol-Chlorthalidone 50-25 mg tablet Discontinued 1 TAB PO Daily November 19, 2023 11:00pm November 20, 2023 12:09pmStart: 50-31-3698tjlx 1 tablet by mouth once dailyAtenolol-Chlorthalidone 50-25mg atenoloL-chlorthalidone 50-25mg, 1 (one) Tablet daily # 90, 08/22/2022, Ref. x1. Active oral daily for 90 *Pick strength-form from [employer] for eRX* Aug, ActiveStart: 89-08-7892dwkkjtin-chlorthalidone 50-25 MG tabletB Complex-C (b complex-vitamin c) tablet (3 sources)take 1 tablet by mouth in the morningB Complex-C (b complex-vitamin c) tablet Take 1 tablet by mouth in the morning. Activebenzonatate 200 mg oral capsule (1 source)Non-narcotic AntitussiveStart: 05-39-9140tvfr 1 capsule by mouth three times daily as needed for coughBenzonatate 200 mg capsule Active 200 MG PO Three times daily as needed for cough 30 October 16, 2024 12:00amcyclobenzaprine hydrochloride 10 mg oral tablet (7 sources)Muscle RelaxantStart: 13-08-5354acdb 1 tablet by mouth three times daily as neededcyclobenzaprine 10mg cyclobenzaprine 10mg, 1 (one) Tablet three times daily, as needed # 30, 05/31/2022, No Refill. Active oral three times daily, as needed for 0 *Reorder from [employer] for eRx and Interaction Alerts* May, ActiveStart: 02-10-2021 End: 99-89-0639pabz 1 tablet by mouth at bedtime as needed for muscle spasms cyclobenzaprine 10 MG tablet Indications: Chronic pain syndrome , Myofascial pain Take 1 tablet by mouth at bedtime as needed for Muscle spasms. 30 tablet 2 04/16/2021 05/16/2021 ActivecycloSPORINE 0.5 mg/ml ophthalmic suspension (3 sources)Calcineurin Inhibitor ImmunosuppressantStart: 50-90-3331efil 1 drop(s) into the eye(s) in the morningRestasis 0.05 % ophthalmic emulsion Administer 1 drop into both eyes in the morning and 1 drop before bedtime. 01/11/2024 Activedocosahexaenoic acid 120 mg / eicosapentaenoic acid 180 mg oral capsule (3 sources)omega-3 1000 MG capsule capsule Take by mouth Activedoxepin hydrochloride 10 mg oral capsule (5 sources)Tricyclic AntidepressantStart: 99-85-5894hbwv 2 capsules by mouth once dailyDoxepin 10 mg capsule Active 20 MG PO Daily September 16, 2024 12:00am Start: 26-53-9202wqxp 1 capsule by mouth once daily at bedtimedoxepin (SINEquan) 10 MG capsule Indications: JOSÉ (obstructive sleep apnea) , Hypersomnia , PLMD (periodic limb movement disorder) TAKE 1 TO 2 CAPSULES BY MOUTH EVERY DAY AT BEDTIME 180 capsule 1 03/18/2024 Dxcwxd03 ml methocarbamol 100 mg/ml injection (6 sources)Muscle RelaxantStart: 09-33-2963pjgsvz 1 g by intramuscular injection every eight hoursMethocarbamol (Robaxin) 100 mg/mL solution Active 1 GM IM Every 8 hours September 16, 2024 12:00amStart: 60-12-6199ycah 1 tablet by mouth in the morning, then take 1 tablet by mouth in the evening, then take 1 tablet by mouth at bedtimemethocarbamol (Robaxin) 750 MG tablet Take 750 mg by mouth in the morning and 750 mg in the eveningand 750 mg before bedtime. 02/13/2024 Active Robaxin ActiveMultiple Vitamins-Minerals (PRESERVISION AREDS PO) (5 sources)Multiple Vitamins-Minerals (PRESERVISION AREDS PO) Take by mouth 2 times daily. 0 Activeoseltamivir 75 mg oral capsule (1 source)Neuraminidase InhibitorStart: 60-79-3040qgiy 1 capsule by mouth twice dailyOseltamivir (Tamiflu) 75 mg capsule Active 75 MG PO Twice daily 06 15October 16, 2024 12:00amtadalafil 20 mg oral tablet (4 sources)Phosphodiesterase 5 InhibitorStart: 16-93-5574tdbo 1 tablet by mouth once as neededTadalafil 20 mg tablet Active 20 MG PO Once September 16, 2024 12:00am FreeTextSi tablet prn; Note: Source Status: Taking; Provider: Tawnya Castorena ( )Cialis 20 MG 1 tablet prn Coscuu08 actuat testosterone 20.25 mg/actuat topical gel (10 sources)AndrogenStart: 49-90-0000Lkrftprzhvlo 20.25 MG/ACT (1.62%) gel APPLY 2 PUMPS TO CLEAN, DRY, INTACT SKIN EVERY MORNING 01/30/2024 ActiveStart: 46-80-2940AidpdPeg 1.62 % (20.25mg/1.25 gr AndroGeL 1.62 % (20.25mg/1.25 gr, 2 pumps daily , 05/31/2022, No Refill. Active transdermal for 0 *Reorder from [employer] for eRx and Interaction Alerts* May, ActiveStart: 01-09-2021 Testosterone 20.25 MG/ACT (1.62%) Gel gel APPLY 1 PUMP TOPICALLY EACH MORNING 0 01/09/2021 ActiveTestosterone (Androgel) 1.62 % (20.25 mg/1.25 gram) gel in packet (2 sources)Start: 19-52-1250Itfbtqadtadm (Androgel) 1.62 % (20.25 mg/1.25 gram) gel in packet Active 1 PACKET TRANSDERML Daily September 16, 2024 12:00am apply to max area of ONE upper arem and shouldertiZANidine 4 mg oral tablet (2 sources)Central alpha-2 Adrenergic AgonistStart: 46-32-5910ybgo 1 tablet by mouth once daily at bedtime as neededTizanidine 4 mg tablet Active 4 MG PO Daily at bedtime as needed September 16, 2024 12:00amzonisamide 100 mg oral capsule (2 sources)Anti-epileptic AgentStart: 79-04-5506dzhr 1 capsule by mouth once dailyZonisamide 100 mg capsule Active 100 MG PO Daily September 16, 2024 12:00am Completed/Discontinued Medications MedicationDrug Class(es)DatesSig (Normalized)Sig (Original)diclofenac sodium 75 mg delayed release oral tablet (20 sources)Nonsteroidal Anti-inflammatory DrugStart: 12-25-2023 End: 47-34-3132rxws 1 tablet by mouth twice dailyDiclofenac Sodium 75 mg tablet,delayed release (DR/EC) Discontinued 0 .ROUTE .COMPLEX 60 June 18, 2024 7:24am August 20, 2024 8:25am TAKE 1 TABLET BY MOUTH TWICE A DAYStart: 02-05-2021 End: 16-87-3423gdpy 1 tablet by mouth twice dailyDiclofenac Sodium 75 mg tablet,delayed release (DR/EC) Discontinued 75 MG PO Twice daily December 24, 2023 11:00pm December 25, 2023 11:59amDULoxetine 30 mg delayed release oral capsule (20 sources)Serotonin and Norepinephrine Reuptake InhibitorStart: 12-20-2023 End: 85-73-7561oerh 1 capsule by mouth once dailyDuloxetine 30 mg capsule,delayed release(DR/EC) Discontinued 0 .ROUTE .COMPLEX 90 June 1349:26am July 05, 2024 8:07pm TAKE 1 CAPSULE BY MOUTH EVERY DAYStart: 12-20-2023 End: 18-69-6680nuzc 1 capsule by mouth once dailyDuloxetine 30 mg capsule,delayed release(DR/EC) Discontinued 30 MG PO Daily December 19, 2023 11:00pmDecember 20, 2023 8:30amStart: 02-18-2021 End: 04-06-1966ygza 1 capsule by mouth once dailyDULoxetine (Cymbalta) [address] Particles capsule DR Indications: Lumbar radiculopathy , Spinal stenosis of cervical region , Chronic pain syndrome Take 1 capsule by mouth daily. 30 capsule 1 02/18/2021 03/17/2021 Discontinued (Reorder)Start: 02-11-2021 End: 67-84-2505nrhg 1 capsule by mouth once dailyDULoxetine [address] Particles capsule DR Indications: Lumbar radiculopathy , Spinal stenosis of cervical region , Chronic pain syndrome Take 1 capsule by mouth daily. 30 capsule 2 03/17/2021 Hfrkoe79 ml lidocaine hydrochloride 20 mg/ml injection (2 sources)Antiarrhythmic, Amide Local AnestheticStart: 04-16-2021 End: 58-30-2501myqznrpsa 2 % injection 100 mgStart: 04-16-2021 End: 81-25-6997kecpwcrsl 2 % injection 100 mglidocaine 1% (PF) (XYLOCAINE MPF) 10 mL syringe (2 sources)Start: 02-16-2021 End: 66-34-6425eddgrjtox 1% (PF) (XYLOCAINE MPF) 10 mL syringephentermine hydrochloride 37.5 mg oral tablet (4 sources)Sympathomimetic Amine AnorecticStart: 09-16-2024 End: 94-88-9887lfyz 1 tablet by mouth once daily before breakfastPhentermine 37.5 mg tablet Discontinued 37.5 MG PO Daily September 16, 2024 12:00am September 16, 2024 3:23pm FreeTextSi tablet before breakfast Orally Once a day; Note: Source Status: Refill; Refills: 0; Qty: 30 Tablet; Provider: Tawnya Monet Start: 11-88-0772vxde 1 tablet by mouth once daily before breakfastAdipex-P 37.5 MG 1 tablet before breakfast Orally Once a day for 30 days Aug, Active Start: 40-45-0594gclm 1 tablet by mouth once daily before breakfastAdipex-P 37.5 MG 1 tablet before breakfast Orally Once a day for 30 days Jul, Active Problems Active Problems Problem ClassificationProblemDateDocumented DateEpisodic/ChronicDeficiency and other anemia (3 sources)Anemia; Translations: [Anemia, unspecified]58-04-3397Rliypvzg Deficiency and other anemia (3 sources)Iron deficiency anemia; Translations: [Iron deficiency anemia, unspecified]50-04-3609CqjxstoyTbpaovgts of lipid metabolism (2 sources)Mixed hyperlipidemia; Translations: [Mixed hyperlipidemia]Chronic Essential hypertension (4 sources)Essential hypertension; Translations: [Essential (primary) hypertension]Onset: 623577-09-9890MluavsgHtbevdify (2 sources)Influenza due to Influenza A virus; Translations: [Influenza due to other identified influenza virus with other respiratory manifestations] 97-58-1055OcnurrcqUfmlt endocrine disorders (4 sources)Testicular hypofunction; Translations: [TESTICULAR HYPOFUNCTION] Onset: 47-99-4215VboyoxpUlcla nervous system disorders (3 sources)Chronic pain syndrome; Translations: [Chronic pain syndrome]Chronic Other nervous system disorders (2 sources)Chronic pain; Translations: [Other chronic pain]ChronicOther nervous system disorders (1 source)Other chronic painChronicOther nutritional; endocrine; and metabolic disorders (2 sources)Obese class I; Translations: [Obesity, unspecified]Onset: 03-17-2021 49-11-1803JnbwhmaXedfm nutritional; endocrine; and metabolic disorders (3 sources)Body mass index 30+ - obesity; Translations: [Obesity, unspecified] ChronicOther nutritional; endocrine; and metabolic disorders (1 source)Obesity, unspecifiedChronicOther nutritional; endocrine; and metabolic disorders (1 source)Obesity caused by energy imbalance; Translations: [Other obesity due to excess calories]ChronicOther nutritional; endocrine; and metabolic disorders (1 source)Other obesity due to excess caloriesChronicOther nutritional; endocrine; and metabolic disorders (1 source)Body mass index (BMI) 33.0-33.9, adultChronicOther screening for suspected conditions (not mental disorders or infectious disease) (7 sources)Encounter for screening for malignant neoplasm of prostate; Translations: [Blood chemistry abnormal]Onset: 473129-18-9440Vyjghfpi Residual codes; unclassified (6 sources)Obstructive sleep apnea syndrome; Translations: [Obstructive sleep apnea (adult) (pediatric)]Onset: 554989-65-0090ElntuusVaektedd codes; unclassified (1 source)Obstructive sleep apnea (adult) (pediatric)ChronicResidual codes; unclassified (4 sources)Periodic limb movement disorder; Translations: [Periodic limb movement disorder]Onset: 565103-18-5273YiwsqlaLjelikpr codes; unclassified (4 sources)Hypersomnia; Translations: [Hypersomnia, unspecified]Onset: 539066-90-4812GpxduvdJctsblgc codes; unclassified (1 source)Drug compliance good; Translations: [Other specified personal risk factors, not elsewhere classified]EpisodicSpondylosis; intervertebral disc disorders; other back problems (5 sources)Arthropathy of cervical spine facet joint; Translations: [Spondylosis without myelopathy or radiculopathy, cervical region]ChronicSpondylosis; intervertebral disc disorders; other back problems (4 sources)Lumbar radiculopathy; Translations: [Radiculopathy, lumbar region] Episodic Past or Other Problems Problem ClassificationProblemDateDocumented DateEpisodic/ChronicAbdominal pain (5 sources)Right upper quadrant pain; Translations: [Epigastric pain]Onset: 05-26-5361XwgikfsqMclen connective tissue disease (4 sources)Myofascial pain; Translations: [Myalgia, other site]EpisodicOther lower respiratory disease (4 sources)Snoring; Translations: [Snoring]Onset: 944575-08-7254Kinrdhdx Unclassified (1 source)Low back pain, unspecified M54.50 Results Test NameValueInterpretationReference RangeFacilityNo Panel InformationOrdered By: Geovanna Clarke on 36-81-1471Tcjnh Strep (POC)[facility] HospitalUrology Office/Clinic Noteon 52-64-5341Tmgtlwu Office/Clinic NoteUrology Office/Clinic Note Chief Complaint Patient in office for f/u with blood work HPI Staff Manuel is a 54 yo male pt here today for a 1 yr f/u w/Testosterone Levels. Previous DX: male hypogonadism, BPH, impotence *Cialis 10mg PRN, Androgel 2 pumps qd. Patient had BW done at [facility] on 07/29/24 and 07/30/24. PSA was [...] information and history for this patient from andexternal providers I have reviewed and verified the [...] 324 07/19/21 - 754 07/20/23 - 366 [phone] 07/29/24 - 464 07/30/24 - Hgb 16.5 [...] from prior, remains low. Pt states that [facility] wellness labs have dropped, has not noticed [...] adult 05/09/2017 Given diphtheria/pertussis, acel/tetanus adult 02/08/2013 Gi (more content not included)...[facility] HospitalComment on above:Result Comment: Electronically Signed By: Camilo FERMIN, Chata Inman\.br\Date and Time Signed: 07/31/24 08:33ESTBasophils Auto (Bld) [#/Vol]on 38-63-3765Ieikuhfol (Bld) [#/Vol] Automated basophil count0.0-0.1FMemorial Health System Marietta Memorial HospitalBasophils/100 WBC Auto (Bld)on 72-99-7887Gcwwfgkpa/100 WBC (Bld)Automated basophil %0.2-2.0 [facility] HospitalCholesterol in LDL Calc [Mass/Vol]on 07-30-2024 Cholesterol in LDL [Mass/Vol]Cholesterol in LDL [Mass/volume] in Serum or Plasma by calculationTrihealth Mccullough-Hyde Memorial HospitalComment on above:<100 mg/dl DEBZPHM362-853 mg/dl NEAR OR ABOVE SJYOOZX156-193 mg/dl BORDERLINE LSHR609-324 mg/dl HIGH>190 mg/dl VERY HIGHCholesterol in VLDL Calc [Mass/Vol]on 07-30-2024 Cholesterol in VLDL [Mass/Vol]Cholesterol in VLDL [Mass/volume] in Serum or Plasma by calculationTrihealth Mccullough-Hyde Memorial HospitalEosinophils/100 WBC Auto (Bld)on 79-26-1201Ebwiqmmdtfo/100 WBC (Bld)Automated eosinophil %Low0.9-7.0 [facility] HospitalErythrocyte distribution width Auto (RBC) [Ratio]on 54-11-7184Ivrrbagdcxc distribution width (RBC) [Ratio]Erythrocyte distribution width [Ratio] by Automated count11.0-15.0[facility] HospitalEstimated glomerular filtration rate (GFR) non- Americanon 42-41-9923HHP/1.73 sq M.predicted among non-blacks MDRD (S/P/Bld) [Vol rate/Area]Estimated glomerular filtration rate (GFR) non- AmericanLow>=60 mL/min/1.73m 2FMemorial Health System Marietta Memorial HospitalGlobulin Calc (S) [Mass/Vol]on 55-99-5233Bdctidfq (S) [Mass/Vol]Serum globulin measurement by calculation (mass/volume)[facility] HospitalGlucose mean value [Mass/volume] in Blood Estimated from glycated hemoglobinon 64-27-1779Roqgmwl glucose Estimated from glycated hemoglobin (Bld) [Mass/Vol]Glucose mean value [Mass/volume] in Blood Estimated from glycated hemoglobinTrihealth Mccullough-Hyde Memorial HospitalHematocrit Auto (Bld) [Volume fraction]on 36-47-1712Rajsfetqvv (Bld) [Volume fraction]Hematocrit [Volume Fraction] of Blood by Automated count 42.0-54.0[facility] HospitalHemoglobin [Mass/volume] in Bloodon 43-32-5726Dfzrpoxwvm (Bld) [Mass/Vol]Hemoglobin [Mass/volume] in Blood14.0-18.0 [facility] HospitalLaboratory - Chemistry and Chemistry - challengeon 74-81-8769Iidwmbq [Mass/Vol]3.5 g/dL3.4-5.0[facility] HospitalALP [Catalytic activity/Vol]76 U/V76-092SpaenausmTrihealth Mccullough-Hyde Memorial HospitalALT [Catalytic activity/Vol]69 U/RRwhl24-61KivbcvhfqTrihealth Mccullough-Hy[facility] Memorial HospitalAST [Catalytic activity/Vol]22 U/O20-08MefpxuphoTrihealth Mccullough-[facility] Hospital Bilirubin [Mass/Vol]1.1 mg/dLHigh0.2-1.0[facility] HospitalCalcium [Mass/Vol]9.3 mg/dL8.5-10.1FMemorial Health System Marietta Memorial HospitalChloride [Moles/Vol]99 mmol/W41-186RnyjgakbwTrihealth Mccullough-Hyde Memorial HospitalCholesterol [Mass/Vol]171 mg/dL<=200[facility] HospitalCholesterol in HDL [Mass/Vol]56 mg/bI06-52MuiswyuimTrihealth Mccullough-Hyde Memorial HospitalComment on above:> or =60 mg/dl - LOW CARDIOVASCULAR RISK<40 mg/dl - HIGH CARDIOVASCULAR RISKCO2 [Moles/Vol]28.8 mmol/L21.0-32.0[facility] HospitalCreatinine [Mass/Vol]1.50 mg/dLHigh0.70-1.30[facility] HospitalGFR/1.73 sq M.predicted MDRD (S/P/Bld) [Vol rate/Area]59 mL/min/{1.73_m2}Low>=60 mL/min/1.73m 2FMemorial Health System Marietta Memorial HospitalGlucose [Mass/Vol]96 mg/bX44-383 [facility] HospitalPotassium [Moles/Vol]3.4 mmol/LLow3.5-5.1 [facility] HospitalProtein [Mass/Vol]7.3 g/dL6.4-8.2FOhioHealth Berger Hospitalodium [Moles/Vol]137 mmol/D777-011BpkgckxhqTrihealth Mccullough-Hyde Memorial HospitalTriglyceride [Mass/Vol]68 mg/dL<=150[facility] HospitalTS Qn2.119 m[IU]/L0.358-3.740[facility] HospitalUrea nitrogen [Mass/Vol]27.0 mg/dLHigh7.0-18.0[facility] HospitalUrea nitrogen/Creatinine [Mass ratio]18.0 mg/mgTrihealth Mccullough-Hyde Memorial Hospital Laboratory - Hematology and Cell countson 23-25-9978RzI6k (Bld) [Mass fraction] 5.6 %4.5-6.2FMemorial Health System Marietta Memorial HospitalComment on above:ADA RECOMMENDED LIMIT 4.0 - 6.0ADA THERAPEUTIC TARGET < 7.0ACTION SUGGESTED> 7.0Immature granulocytes/100 WBC (Bld)0.6 %High0.0-0.5FMemorial Health System Marietta Memorial Hospital Leukocytes [#/volume] corrected for nucleated erythrocytes in Blood by Automated counon 75-00-9099MWN corrected for nucl RBC Auto (Bld) [#/Vol]Leukocytes [#/volume] corrected for nucleated erythrocytes in Blood by Automated counHigh 4.0-11.0[facility] HospitalLymphocytes Auto (Bld) [#/Vol]on 17-81-3894Xciaokagwqq (Bld) [#/Vol]Lymphocytes [#/volume] in Blood by Automated countHigh1.2-3.8[facility] HospitalLymphocytes/100 WBC Auto (Bld) on 07-66-6298Lbyhnsvwgxv/100 WBC (Bld)Lymphocytes/100 leukocytes in Blood by Automated count20.5-60.0[facility] HospitalH Auto (RBC) [Entitic mass]on 07-83-0309JYS (RBC) [Entitic mass]MCH [Entitic mass] by Automated count 25.9-34.0[facility] HospitalHC Auto (RBC) [Mass/Vol]on 26-60-2492CVMN (RBC) [Mass/Vol]MCHC [Mass/volume] by Automated count29.9-35.2 [facility] HospitalMCV Auto (RBC) [Entitic vol]on 99-99-2167ZAE (RBC) [Entitic vol]MCV [Entitic volume] by Automated count80.0-94.0[facility] HospitalMonocytes Auto (Bld) [#/Vol]on 75-24-4342Ljkhhppxa (Bld) [#/Vol]Automated blood monocyte countHigh0.3-0.8[facility] HospitalMonocytes/100 WBC Auto (Bld)on 46-69-9027Ehjhtzyhd/100 WBC (Bld)Automated monocyte %1.7-12.0[facility] HospitalNeutrophils Auto (Bld) [#/Vol]on 01-55-4235Ecnbcgzyzvw (Bld) [#/Vol]Neutrophils [#/volume] in Blood by Automated countHigh1.4-6.5FMemorial Health System Marietta Memorial HospitalNeutrophils/100 WBC Auto (Bld)on 20-39-5862Vyockifyuvz/100 WBC (Bld)Automated neutrophil %43.0-75.0 [facility] HospitalNo Panel Informationon 81-39-7051Gkcjluvamcg # (Auto)0.1 10 3/uL0.0-0.7FMemorial Health System Marietta Memorial HospitalImmature Granulocyte # (Auto)0.09 10 3/uLHigh0.00-0.03[facility] HospitalProstate Specific Antigen Screen0.65 ng/mL<=4.00[facility] HospitalPlatelet mean volume Auto (Bld) [Entitic vol]on 94-19-4860Radrcpvd mean volume (Bld) [Entitic vol]Platelet mean volume [Entitic volume] in Blood by Automated count Low9.5-13.5FMemorial Health System Marietta Memorial HospitalPlatelets Auto (Bld) [#/Vol]on 79-06-1911Rdcpvfues (Bld) [#/Vol]Platelets [#/volume] in Blood by Automated lahek446-129FhgvxmarqTrihealth Mccullough-Hyde Memorial HospitalRBC Auto (Bld) [#/Vol]on 07-30-2024 RBC (Bld) [#/Vol]Erythrocytes [#/volume] in Blood by Automated count4.70-6.10 [facility] Hospitalerum or plasma albumin/globulin mass ratioon 56-73-1580Iiqampv/Globulin [Mass ratio]Serum or plasma albumin/globulin mass ratioParkview Health Bryan Hospitalerum or plasma anion gap determinationon 17-35-3039Pqbum gap [Moles/Vol]Serum or plasma anion gap determinationParkview Health Bryan Hospitalerum or plasma total cholesterol/high density lipoprotein (HDL) cholesterol mass spencer 60-99-5154Hkoafxhdepj.total/Cholesterol in HDL [Mass ratio]Serum or plasma total cholesterol/high density lipoprotein (HDL) cholesterol mass ratTrihealth Mccullough-Hyde Memorial HospitalComment on above:3.3 - 4.4 LOW RISK4.4 - 7.1 AVERAGE RISK7.1 - 11.0 MODERATE RISK>11.0 HIGH RISK Hematocrit Auto (Bld) [Volume fraction]on 98-70-2227Cuvoqnjukd (Bld) [Volume fraction]Hematocrit [Volume Fraction] of Blood by Automated count42.0-54.0 [facility] HospitalNo Panel Informationon 16-95-5570Ceqxxegmodnn Zfoek271 ng/pP609-889VbolrmacgTrihealth Mccullough-Hyde Memorial HospitalComment on above:Adult male reference interval is based on a population ofhealthy nonobese males (BMI <30) between 19 and 39 yearsold. Joni, et.al. JCEM 2017,102;0280-8106. PMID:[id number].Performed at: - Lab[address] [id number] Director: Checo Pitts PhD, Phone: [phone] [Mass/volume] in Serum or Plasmaon 99-40-9497Kgqtqcf [Mass/Vol]3.7 g/dL2.9-4.4 [facility] HospitalBasophils Auto (Bld) [#/Vol]on 12-26-2023 Basophils (Bld) [#/Vol]0.1 10 3/uL0.0-0.1FMemorial Health System Marietta Memorial Hospital Basophils/100 WBC Auto (Bld)on 11-49-7848Tcexzutrp/100 WBC (Bld)0.7 %0.2-2.0 [facility] HospitalEosinophils/100 WBC Auto (Bld)on 12-26-2023 Eosinophils/100 WBC (Bld)3.0 %0.9-7.0[facility] Erythrocyte distribution width Auto (RBC) [Ratio]on 31-66-8052Tchlqysrxav distribution width (RBC) [Ratio]21.4 %11.0-15.0[facility] Hematocrit Auto (Bld) [Volume fraction]on 98-63-7760Xmmtlaiueq (Bld) [Volume fraction]47.9 %42.0-54.0[facility] HospitalHemoglobin [Mass/volume] in Bloodon 46-97-6314Wabaahhinx (Bld) [Mass/Vol]15.7 g/dL14.0-18.0 [facility] HospitalIgA [Mass/volume] in Serum or Plasmaon 75-34-4746SqC [Mass/Vol]232 mg/zI94-118FpeftajqkTrihealth Mccullough-Hyde Memorial HospitalIgG [Mass/volume] in Serum or Plasmaon 98-19-9314InZ [Mass/Vol]1144 mg/rD626-6122 [facility] HospitalIgM [Mass/volume] in Serum or Plasmaon 26-77-6952EkZ [Mass/Vol]79 mg/tY92-289UrfikaykyTrihealth Mccullough-Hyde Memorial HospitalLon 93-97-6325PRrojxery: Received: 12/27/23 Status: BRYSONMaico Johnson Num: [id number] Spec Type: Impression Subm Dr: Margaux Estrada MD Tissues: PATHPER Procedures: PATHREVIEW Age/ Patient Sex Location Account Attending Physician AubreyManuel 53/M LABEL [id number] Margaux Estrada MD SPEC NUM: RECD: 12/27/23 STATUS: KELSIE BURNSnAgie NUM: [id number] MAYRA: 12/26/[address]: Margaux Estrada MD ENTERED: 12/27/23 [facility] DR: Chase Oropeza SPEC TYPE: Impression DEPT: KELSIE Jackson ENTERED BY: [id number] RECV BY: [id number] ORDERED: PATHREVIEW ORDERED: PATHREVIEW Pathologist Review Occasional atypical lymphocytes are noted. Atypical infection should be ruled out. Specimen: [id number] Received: 12/27/23 Status: KELSIE Elizabeth Num: [id number] Spec Type: Impression Subm Dr: Margaux Estrada MD Tissues: PATHPER Procedures: PATHREVIEW Patient: Manuel Burgos [id number] (Continued) Signed (signature on file) Elroy Hutchins MD 12/27/23 [facility]3NoTransylvania Regional Hospital Physician GroupLaboratory - Chemistry and Chemistry - challengeon 79-83-9507WLT [Catalytic activity/Vol]211 U/L85-227 [facility] HospitalProtein [Mass/Vol]0.2 g/dLNot ObservedTrihealth Mccullough-Hyde Memorial HospitalLaboratory - Hematology and Cell countson 12-26-2023 Immature granulocytes/100 WBC (Bld)0.2 %0.0-0.5FMem[facility] Leukocytes [#/volume] corrected for nucleated erythrocytes in Blood by Automated counon 86-32-4510MKK corrected for nucl RBC Auto (Bld) [#/Vol]9.7 10 3/uL 4.0-11.0[facility] HospitalLymphocytes Auto (Bld) [#/Vol]on 42-03-3231Hfenkxtzzbi (Bld) [#/Vol]3.5 10 3/uL1.2-3.8[facility] HospitalLymphocytes/100 WBC Auto (Bld)on 59-33-5886Tilunjcmgvb/100 WBC (Bld)36.4 % 20.5-60.0[facility] HospitalH Auto (RBC) [Entitic mass]on 53-89-2909CUS (RBC) [Entitic mass]27.5 pg25.9-34.0[facility] HospitalMCHC Auto (RBC) [Mass/Vol]on 92-88-5626FEZK (RBC) [Mass/Vol]32.8 g/dL 29.9-35.2FMemorial Health System Marietta Memorial HospitalMCV Auto (RBC) [Entitic vol]on 47-76-2504BSZ (RBC) [Entitic vol]84.0 fL80.0-94.0[facility] HospitalMonocytes Auto (Bld) [#/Vol]on 44-52-6940Kvxqwlyzz (Bld) [#/Vol]0.7 10 3/uL0.3-0.8[facility] HospitalMonocytes/100 WBC Auto (Bld)on 51-49-4669Hpuzmdhjp/100 WBC (Bld)7.5 %1.7-12.0[facility] Neutrophils Auto (Bld) [#/Vol]on 00-93-3273Pbiadyqtxgg (Bld) [#/Vol]5.1 10 3/uL 1.4-6.5FMemorial Health System Marietta Memorial HospitalNeutrophils/100 WBC Auto (Bld)on 79-21-3635Zgfpawmkoap/100 WBC (Bld)52.2 %43.0-75.0[facility] HospitalNo Panel Informationon 28-09-8679Taoezvozlfn # (Auto)0.3 10 3/uL0.0-0.7 [facility] HospitalImmature Granulocyte # (Auto)0.02 10 3/uL 0.00-0.03[facility] HospitalProtein Electrophoresis NoteComment. [facility] HospitalComment on above:Protein electrophoresis scan will follow via computer,mail, or band saw filer delivery.Performed at: [employer] [id number] Director: Checo Pitts PhD, Phone: [phone] mean volume Auto (Bld) [Entitic vol]on 12-26-2023 Platelet mean volume (Bld) [Entitic vol]10.0 fL9.5-13.5FMemorial Health System Marietta Memorial HospitalPlatelets Auto (Bld) [#/Vol]on 39-62-3114Unhtrrjdd (Bld) [#/Vol] 269 10 3/iR899-348PiaiuhzymTrihealth Mccullough-Hyde Memorial HospitalProtein [Mass/volume] in Serum or Plasmaon 78-89-1176Mohlbaz [Mass/Vol]6.9 g/dL6.0-8.5FMemorial Health System Marietta Memorial HospitalRBC Auto (Bld) [#/Vol]on 54-93-4445LEQ (Bld) [#/Vol]5.70 10 6/uL 4.70-6.10[facility] Hospitalerum globulin measurement (mass/volume)on 93-21-7251Smtemhbm (S) [Mass/Vol]3.2 g/dL2.2-3.9[facility] Hospitalerum or plasma albumin/globulin mass ratioon 12-26-2023 Albumin/Globulin [Mass ratio]1.2 {ratio}0.7-1.7FMem[facility] Hospital Serum or plasma alpha 1 globulin measurement by electrophoresis (mass/volume)on 35-79-9166Xdocp 1 globulin Elph [Mass/Vol]0.2 g/dL0.0-0.4FOhioHealth Berger Hospitalerum or plasma alpha 2 globulin measurement by electrophoresis (mass/volume)on 86-54-9995Lypvd 2 globulin Elph [Mass/Vol]0.7 g/dL0.4-1.0 [facility] Hospitalerum or plasma beta globulin measurement by electrophoresis (mass/volume)on 74-85-2503Wwhb globulin Elph [Mass/Vol]1.5 g/dL 0.7-1.3FOhioHealth Berger Hospitalerum or plasma gamma globulin measurement by electrophoresis (mass/volume)on 18-65-9526Mqsqf globulin Elph [Mass/Vol]0.9 g/dL0.4-1.8[facility] Hospitalerum or plasma immunoelectrophoresis interpretationon 69-80-2147Noijdxxwmguqft IEP [Interp] Comment.[facility] HospitalComment on above:Immunofixation shows IgG monoclonal protein with lambdalight chain specificity.Basophils Auto (Bld) [#/Vol]on 02-88-8402Csejcqrlg (Bld) [#/Vol]0.1 10 3/uL0.0-0.1FMemorial Health System Marietta Memorial HospitalBasophils/100 WBC Auto (Bld)on 73-45-5864Eiyqxfvub/100 WBC (Bld) 1.1 %0.2-2.0[facility] HospitalEosinophils/100 WBC Auto (Bld)on 49-98-2731Vtwphbrlgtn/100 WBC (Bld)3.3 %0.9-7.0[facility] Erythrocyte distribution width Auto (RBC) [Ratio]on 72-17-5005Ijvorwptxxk distribution width (RBC) [Ratio]21.6 %11.0-15.0[facility] Hematocrit Auto (Bld) [Volume fraction]on 98-32-1943Laxherqlwy (Bld) [Volume fraction]45.7 %42.0-54.0[facility] HospitalHemoglobin [Mass/volume] in Bloodon 96-88-3358Rhjtpaiutm (Bld) [Mass/Vol]14.9 g/dL14.0-18.0 [facility] HospitalIron binding capacity [Mass/volume] in Serum or Plasmaon 36-02-8764Ydhj binding capacity [Mass/Vol]370.0 ug/dL250.0-450.0 [facility] HospitalIron saturation [Mass Fraction] in Serum or Plasmaon 14-77-7157Sljz saturation [Mass fraction]37.6 %[facility] HospitalLaboratory - Chemistry and Chemistry - challengeon 12-19-2023 Ferritin [Mass/Vol]31.0 ng/mL26.0-388.0[facility] HospitalIron [Mass/Vol]139.0 ug/dL65.0-175.0[facility] HospitalLaboratory - Hematology and Cell countson 07-32-4651Kvphxsff granulocytes/100 WBC (Bld)0.5 % 0.0-0.5FMemorial Health System Marietta Memorial HospitalLeukocytes [#/volume] corrected for nucleated erythrocytes in Blood by Automated counon 66-40-8046POE corrected for nucl RBC Auto (Bld) [#/Vol]9.4 10 3/uL4.0-11.0[facility] Lymphocytes Auto (Bld) [#/Vol]on 14-92-3284Hcqmpjeuyap (Bld) [#/Vol]3.3 10 3/uL 1.2-3.8[facility] HospitalLymphocytes/100 WBC Auto (Bld)on 44-31-6216Rqslgwaqwhl/100 WBC (Bld)34.5 %20.5-60.0[facility] HospitalH Auto (RBC) [Entitic mass]on 22-27-1771LZG (RBC) [Entitic mass]26.8 pg 25.9-34.0[facility] HospitalMCHC Auto (RBC) [Mass/Vol]on 29-04-2283SGDW (RBC) [Mass/Vol]32.6 g/dL29.9-35.2FMemorial Health System Marietta Memorial HospitalMCV Auto (RBC) [Entitic vol]on 45-54-7471CRB (RBC) [Entitic vol]82.2 fL 80.0-94.0[facility] HospitalMonocytes Auto (Bld) [#/Vol]on 69-25-2099Bhztmrlyk (Bld) [#/Vol]0.9 10 3/uL0.3-0.8[facility] HospitalMonocytes/100 WBC Auto (Bld)on 13-95-1682Xitocmiyd/100 WBC (Bld)9.2 % 1.7-12.0[facility] HospitalNeutrophils Auto (Bld) [#/Vol]on 24-01-5091Nokpxfwnubp (Bld) [#/Vol]4.9 10 3/uL1.4-6.5FMemorial Health System Marietta Memorial HospitalNeutrophils/100 WBC Auto (Bld)on 82-14-6079Vxomtbobcel/100 WBC (Bld)51.4 % 43.0-75.0[facility] HospitalNo Panel Informationon 12-19-2023 Eosinophils # (Auto)0.3 10 3/uL0.0-0.7FMemorial Health System Marietta Memorial HospitalImmature Granulocyte # (Auto)0.05 10 3/uL0.00-0.03[facility] Miscellaneous TestCOMMENT.[facility] HospitalComment on above:Test Ordered: [id number] Hgb Fractionation CascadeHgb F 0.0 % CB Reference Range: 0.0- 2.0Hgb A 97.8 % CB Reference Range: 96.4-98.8Hgb A2 2.2 % CB Reference Range: 1.8-3.2Hgb S 0.0 % CB Reference Range: 0.0Interpretation: Comment CB Reference Range: .Normal hemoglobin present; no hemoglobin variant or betathalassemia identified.Note: Alpha thalassemia may not be detected by the HgbFractionation [place] panel. If alpha thalassemia issuspected, [facility] offers Alpha- Thalassemia DNA Analysis(#[id number]).Performed at: - [address] [id number] Director: Checo Pitts PhD, Phone: [phone] Platelet mean volume Auto (Bld) [Entitic vol]on 75-96-9872Qaweczqa mean volume (Bld) [Entitic vol]9.4 fL9.5-13.5FMemorial Health System Marietta Memorial HospitalPlatelets Auto (Bld) [#/Vol]on 21-56-7916Dyrfvoodf (Bld) [#/Vol]299 10 3/fO551-741KqccmocmjTrihealth Mccullough-Hyde Memorial HospitalRBC Auto (Bld) [#/Vol]on 08-51-0658PLK (Bld) [#/Vol]5.56 10 6/uL4.70-6.10[facility] HospitalBasophils Auto (Bld) [#/Vol]on 15-45-6480Dpgoxnqyy (Bld) [#/Vol]0.1 10 3/uL0.0-0.1FMemorial Health System Marietta Memorial HospitalBasophils/100 WBC Auto (Bld)on 55-64-1609Jwptqomhy/100 WBC (Bld)0.9 % 0.2-2.0[facility] HospitalEosinophils/100 WBC Auto (Bld)on 13-41-2415Eephtrptsnd/100 WBC (Bld)3.2 %0.9-7.0[facility] Erythrocyte distribution width Auto (RBC) [Ratio]on 51-06-7871Kiyzjfmvxcm distribution width (RBC) [Ratio]17.4 %11.0-15.0[facility] Hematocrit Auto (Bld) [Volume fraction]on 74-06-5465Nnbfyhvjgp (Bld) [Volume fraction]43.5 %42.0-54.0[facility] HospitalHemoglobin [Mass/volume] in Bloodon 10-93-2593Kzgjuawwuh (Bld) [Mass/Vol]13.2 g/dL14.0-18.0 [facility] HospitalLaboratory - Chemistry and Chemistry - challengeon 27-32-5033Bwjbinibg (Vitamin B12) [Mass/Vol]986.0 pg/mL193.0-986.0 [facility] HospitalFerritin [Mass/Vol]14.0 ng/mL26.0-388.0 [facility] HospitalLaboratory - Hematology and Cell countson 94-19-9930Qpcuwyyt granulocytes/100 WBC (Bld)0.2 %0.0-0.5FMemorial Health System Marietta Memorial HospitalLeukocytes [#/volume] corrected for nucleated erythrocytes in Blood by Automated counon 17-98-2863ZPX corrected for nucl RBC Auto (Bld) [#/Vol]10.0 10 3/uL4.0-11.0[facility] HospitalLymphocytes Auto (Bld) [#/Vol]on 92-76-2783Lpxtkqwsswt (Bld) [#/Vol]3.6 10 3/uL1.2-3.8[facility] HospitalLymphocytes/100 WBC Auto (Bld)on 11-08-2023 Lymphocytes/100 WBC (Bld)35.5 %20.5-60.0[facility] HospitalH Auto (RBC) [Entitic mass]on 18-62-9042XVZ (RBC) [Entitic mass]23.9 pg25.9-34.0 [facility] HospitalMCHC Auto (RBC) [Mass/Vol]on 11-82-8369UPVF (RBC) [Mass/Vol]30.3 g/dL29.9-35.2FMemorial Health System Marietta Memorial HospitalMCV Auto (RBC) [Entitic vol]on 16-37-8744ACZ (RBC) [Entitic vol]78.7 fL80.0-94.0[facility] HospitalMonocytes Auto (Bld) [#/Vol]on 48-22-4706Ftkpybkag (Bld) [#/Vol]0.9 10 3/uL0.3-0.8[facility] HospitalMonocytes/100 WBC Auto (Bld)on 68-58-8385Yzxmsqbvx/100 WBC (Bld)8.5 %1.7-12.0[facility] HospitalNeutrophils Auto (Bld) [#/Vol]on 58-76-7671Mrgqsyueoiw (Bld) [#/Vol]5.2 10 3/uL1.4-6.5FMemorial Health System Marietta Memorial HospitalNeutrophils/100 WBC Auto (Bld)on 13-79-0901Husngaxzajp/100 WBC (Bld)51.7 %43.0-75.0[facility] HospitalNo Panel Informationon 86-46-7204Mpwmpgojrec # (Auto)0.3 10 3/uL0.0-0.7FMemorial Health System Marietta Memorial HospitalFolate19.60 ng/mL8.60-58.90 [facility] HospitalImmature Granulocyte # (Auto)0.02 10 3/uL 0.00-0.03[facility] HospitalPlatelet mean volume Auto (Bld) [Entitic vol]on 81-85-2850Xczrdlqa mean volume (Bld) [Entitic vol]9.4 fL9.5-13.5 [facility] HospitalPlatelets Auto (Bld) [#/Vol]on 11-08-2023 Platelets (Bld) [#/Vol]384 10 3/lS947-810MctvtinkvTrihealth Mccullough-Hyde Memorial HospitalRBC Auto (Bld) [#/Vol]on 52-63-4501FGI (Bld) [#/Vol]5.53 10 6/uL4.70-6.10[facility] HospitalPre-Certification Formon 32-35-8309Ypp-Certification Form [id number]#1.00TIFFNormalFisher Sinai Hospital Of BaltimoreTESTOSTERONE, TOTALon 25-71-6254Brkvtgmebuje [Mass/Vol]487 ng/dLNormal 264-916Marion HospitalComment on above:Result Comment: Adult male reference interval is based on a population of healthy nonobese males (BMI <30) between 19 and 39 years old. Joni et.al. JCEM 2017,102;2529-6803. PMID: 30009122.Performed By: #### TESTTOT #### [facility] [address] [place] [address] Dr. Mychal Shine SINGLE QUAD RT UPPERon 72-98-3389TZ SINGLE QUAD RT UPPER EXAMINATION: US SINGLE [...] Electronically authenticated by: CHRISTOFER SCHAEFFER Date: 2022-08-25 07:07[facility] CenterTESTOSTERONE, TOTALon 92-47-7099Umrnjgmybjuu [Mass/Vol]410 ng/dJPljlbe449-882Eod [facility] SystemComment on above:Result Comment: Adult male reference interval is based on a population of healthy nonobese males (BMI <30) between 19 and 39 years old. Joni, et.al. JCEM 2017,102;5498-9712. PMID: 85507247.Performed By: #### TESTTOT #### [facility] [address] [place] [address] Dr. Mychal Velez AUTO DIFFon 57-59-9146NARI #0.1 103/ulNormal0.0-0.1The [facility] SystemComment on above:Performed By: #### CBC #### [facility] [address] [place] [address] Dr. Mychal Woodysophils/100 WBC (Bld)0.9 %Normal0.2-2.0[facility] Comment on above:Performed By: #### CBC #### [facility] [address] [place] [address] Dr. Mychal Florence #0.7 103/ulNormal0.0-0.7The [facility] SystemComment on above: Performed By: #### CBC #### [facility] [address] [place] [address] Dr. Mychal Silvermanosinophils/100 WBC (Bld)6.7 %Normal0.9-7.0The [facility] Comment on above:Performed By: #### CBC #### [facility] [address] [place] [address] Dr. Mychal Silvermanrythrocyte distribution width (RBC) [Ratio]12.8 %Zmcjej88.0-15.0 The [facility] SystemComment on above:Performed By: #### CBC #### [facility] [address] [address] [address] Mychal OropezaHematocrit (Bld) [Volume fraction]46.9 %Pgjtqr70.0-54.0The [facility] SystemComment on above:Performed By: #### CBC #### [facility] [address] [place] [address] Dr. Mychal OropezaHemoglobin (Bld) [Mass/Vol]16.2 g/eWNdwkww79.0-18.0The [facility] SystemComment on above:Performed By: #### CBC #### [facility] [address] [place] [address] Dr. Mychal Roberts #0.04 10e3/ulCritically high0.00-0.03The [facility] Comment on above:Performed By: #### CBC #### [facility] [address] [place] [address] Dr. Mychal Roberts %0.4 %Normal0.0-0.5The [facility] Hospital at Southwoodsment on above: Performed By: #### CBC #### [facility] [address] [place] [address] Dr. Mychal Rice #4.1 103/ulCritically high1.2-3.8The [facility] Comment on above:Performed By: #### CBC #### [facility] [address] [place] [address] Dr. Mychal Backmphocytes/100 WBC (Bld)37.7 %Obgykt76.5-60.0The [facility] SystemComment on above:Performed By: #### CBC #### [facility] [address] [place] [address] Dr. Mychal RobertsonUAL DIFF REQNONormalThe [facility] SystemComment on above: Performed By: #### CBC #### [facility] [address] [place] [address] Dr. Mychal De La Fuente (RBC) [Entitic mass]30.7 vcPzfyqi43.9-34.0The [facility] SystemComment on above:Performed By: #### CBC #### [facility] [address] [address] [address] Mychal HuHC (RBC) [Mass/Vol]34.5 g/mXQcmhlu63.9-35.2The [facility] SystemComment on above:Performed By: #### CBC #### [facility] [address] [place] [address] Dr. Mychal HuV (RBC) [Entitic vol]88.8 yXEoqnjx50.0-94.0The [facility] SystemComment on above:Performed By: #### CBC #### [facility] [address] [place] [address] Dr. Mychal Goodwin #0.9 103/ulCritically high0.3-0.8The [facility] Comment on above:Performed By: #### CBC #### [facility] [address] [place] [address] Dr. Mychal Correiaocytes/100 WBC (Bld)8.1 %Normal1.7-12.0The [facility] Comment on above:Performed By: #### CBC #### [facility] [address] [place] [address] Dr. Mychal Chaudhary #5.1 103/ulNormal1.4-6.5The [facility] SystemComment on above:Performed By: #### CBC #### [facility] [address] [place] [address] Dr. Mychal Patelutrophils/100 WBC (Bld)46.2 %Fedxro60.0-75.0The [facility] SystemComment on above:Performed By: #### CBC #### [facility] [address] [place] [address] Dr. Mychal Albrightlet mean volume (Bld) [Entitic vol]9.7 fLNormal9.5-13.5The [facility] SystemComment on above:Performed By: #### CBC #### [facility] [address] [place] [address] Dr. Mychal OropezaPLT308 103/ukRmwjrw067-464Cyd Tonasket HospitalComment on above: Performed By: #### CBC #### [facility] [address] [address] [address] Mychal OropezaRBC5.28 106/ulNormal4.70-6.10The [facility] on above:Performed By: #### CBC #### [facility] [address] [address] [address] Mychal OropezaWBC10.9 103/ulNormal4.0-11.0[facility] on above:Performed By: #### CBC #### [facility] [address] [address] [address] Mychal OropezaGLYCOHEMOGLOBIN A1Con 08-18-8652TER RECOMMENDATIONSEE [facility] CenterComhealthsource [place] on above:Result Comment: ADA RECOMMENDED LIMIT 4.0 - 6.0 ADA THERAPEUTIC TARGET < 7.0 ACTION SUGGESTED > 7.0Performed By: #### A1C #### [facility] [address] [place] [address] Dr. Mychal OropezaGlucose [Mass/Vol]108 mg/dLNoSelect Medical [facility] [place] on above:Performed By: #### A1C #### [facility] [address] [address] [address] Mychal OropezaHbA1c (Bld) [Mass fraction]5.4 %Normal4.5-6.2The [facility] on above:Performed By: #### A1C #### [facility] [address] [address] [address] Mychal OropezaLIPID PROFILEon 67-93-2103FOCQ-HDL RATIO NORMSEE [facility] on above:Result Comment: 3.3 - 4.4 LOW RISK 4.4 - 7.1 AVERAGE RISK 7.1 - 11.0 MODERATE RISK >11.0 HIGH RISKPerformed By: #### TSH, LIPID, CMP #### [facility] [address] [address] [address] Mychal OropezaCholesterol [Mass/Vol]207 mg/dLCritically high<=200The [facility] on above:Performed By: #### TSH, LIPID, CMP #### [facility] [address] [address] [address] Mychal Vasquezesterol in HDL [Mass/Vol]47 mg/zJGdzqdq96-16Fpc [facility] on above:Performed By: #### TSH, LIPID, CMP #### [facility] [address] [address] [address] Mychal Vasquezesterol in LDL [Mass/Vol]122.4 mg/dLAultman Orrville Hospital on above:Performed By: #### TSH, LIPID, CMP #### [facility] [address] [place] [address] Dr. Mychal Winslow.total/Cholesterol in HDL [Mass ratio]4.4 {ratio} NormalThe [facility] on above:Performed By: #### TSH, LIPID, CMP #### [facility] [address] [address] [address] Mychal Woo NORMAL> or = 60 mg/dl - LOW CARDIOVASCULAR RISK <40 mg/dl - HIGH CARDIOVASCULAR RISKAultman Orrville Hospital on above:Performed By: #### TSH, LIPID, CMP #### [facility] [address] [place] [address] Dr. Mychal Esparza CALC NORMALSEE BELOWAultman Orrville Hospital on above:Result Comment: <100 mg/dl OPTIMAL 100 - 129 mg/dl NEAR OR ABOVE OPTIMAL 130 - 159 mg/dl BORDERLINE HIGH 160 - 189 mg/dl HIGH >190 mg/dl VERY HIGH Performed By: #### TSH, LIPID, CMP #### [facility] [address] [address] [address] Mychal OropezaTriglyceride [Mass/Vol]188 mg/dLCritically high<=150The [facility] on above:Performed By: #### TSH, LIPID, CMP #### [facility] [address] [address] [address] Mychal TapiaLDL CALC37.6 mg/dLNormalThe Johnna HospitalComment on above: Performed By: #### TSH, LIPID, CMP #### [facility] [address] [address] [address] Mychal Junior 14(COMP METB)on 73-04-1634Wyxaijw [Mass/Vol]3.9 g/dLNormal 3.4-5.0The [facility] Hospital at Southwoodsment on above:Performed By: #### TSH, LIPID, CMP #### [facility] [address] [address] [address] Mychal OropezaAlbumin/Globulin [Mass ratio]1.1 {ratio}NormalThe [facility] SystemComment on above:Performed By: #### TSH, LIPID, CMP #### [facility] [address] [place] [address] Dr. Mychal Amin [Catalytic activity/Vol]77 U/FGchetr46-792Suh [facility] SystemComment on above:Performed By: #### TSH, LIPID, CMP #### [facility] [address] [address] [address] Mychal Ortiz [Catalytic activity/Vol]56 U/KHfgfca41-83Abe [facility] SystemComment on above:Performed By: #### TSH, LIPID, CMP #### [facility] [address] [place] [address] Dr. Mychal Tam gap [Moles/Vol]8.6 mmol/LNormalThe [facility] SystemComment on above:Performed By: #### TSH, LIPID, CMP #### [facility] [address] [address] [address] Mychal Gray [Catalytic activity/Vol]30 U/CDszmne37-06Fts [facility] on above:Performed By: #### TSH, LIPID, CMP #### [facility] [address] [place] [address] Dr. Mychal Coronelirubin [Mass/Vol]0.6 mg/dLNormal0.2-1.0The [facility] Comment on above:Performed By: #### TSH, LIPID, CMP #### [facility] [address] [place] [address] Dr. Mychal OropezaCalcium [Mass/Vol]9.2 mg/dLNormal8.5-10.1The [facility] Comment on above:Performed By: #### TSH, LIPID, CMP #### [facility] [address] [address] [address] Mychal OropezaChloride [Moles/Vol]100 mmol/MTvmgga25-262Znz [facility] Comment on above:Performed By: #### TSH, LIPID, CMP #### [facility] [address] [address] [address] Mychal OropezaCO2 [Moles/Vol]30.0 mmol/XAvmepb40.0-32.0The [facility] Comment on above:Performed By: #### TSH, LIPID, CMP #### [facility] [address] [address] [address] Mychal OropezaCreatinine [Mass/Vol]1.37 mg/dLCritically high0.70-1.30The [facility] SystemComment on above:Performed By: #### TSH, LIPID, CMP #### [facility] [address] [address] [address] Horta ChangEGFR-AF ICELANDIC>60Normal>=60The [facility] System[facility] above:Performed By: #### TSH, LIPID, CMP #### [facility] [address] [address] [address] Mychal SilvermanGFR-NON AF VXWCOZKH51 mL/min/1.94y3Njiyksfjad low>=60The [facility] SystemComment on above:Performed By: #### TSH, LIPID, CMP #### [facility] [address] [place] [address] Dr. Mychal OropezaGlobulin (S) [Mass/Vol]3.7 g/dLNormalThe [facility] SystemComment on above:Performed By: #### TSH, LIPID, CMP #### [facility] [address] [address] [address] Mychal OropezaGlucose [Mass/Vol]111 mg/dLCritically thgy81-775Ejz [facility] SystemComment on above:Performed By: #### TSH, LIPID, CMP #### [facility] [address] [place] [address] Dr. Mychal OropezaPotassium [Moles/Vol]3.6 mmol/LNormal3.5-5.1The [facility] Comment on above:Performed By: #### TSH, LIPID, CMP #### [facility] [address] [place] [address] Dr. Mychal OropezaProtein [Mass/Vol]7.6 g/dLNormal6.4-8.2The [facility] Comment on above:Performed By: #### TSH, LIPID, CMP #### [facility] [address] [place] [address] Dr. Mychal OropezaSodium [Moles/Vol]135 mmol/LCritically gpn351-024Nbk [facility] SystemComment on above:Performed By: #### TSH, LIPID, CMP #### [facility] [address] [place] [address] Dr. Mychal OropezaUrea nitrogen [Mass/Vol]14.0 mg/dLNormal7.0-18.0The [facility] SystemComment on above:Performed By: #### TSH, LIPID, CMP #### [facility] [address] [place] [address] Dr. Mychal Soto nitrogen/Creatinine [Mass ratio]10.2 mg/mgNormalThe [facility] SystemComment on above:Performed By: #### TSH, LIPID, CMP #### [facility] [address] [place] [address] Dr. Mychal Day 78-25-4720YDM4.907 uIU/mLNormal0.358-3.740The [facility] SystemComment on above:Performed By: #### TSH, LIPID, CMP #### [facility] [address] [place] [address] Dr. Mychal OropezaTESTOSTERONE, TOTALon 04-12-1198Qyskomdaukqk [Mass/Vol]324 ng/dL Otbrwi891-758Tgd [facility] SystemComment on above:Result Comment: Adult male reference interval is based on a population of healthy nonobese males (BMI <30) between 19 and 39 years old. bouchra Quinones.al. JCEM 2017,102;0560-3576. PMID: [id number].Performed By: #### TESTTOT #### [facility] [address] [place] [address] Dr. Mychal OropezaXR SPINE CERVICAL WITH OBL AND FLEX/EXTon 26-69-0055MW SPINE CERVICAL WITH OBL AND FLEX/EXTEXAM: XR SPINE CERVICAL WITH OBL AND FLEX/EXT [...] There is fair flexion. No instability is noted.[facility] HospitalXR SPINE LUMBAR W BENDINGon 73-09-7856YY SPINE LUMBAR W BENDINGEXAM: XR SPINE LUMBAR W BENDING HISTORY: back [...] a very good range of motion without instability.[facility] HospitalXR SPINE LUMBAR W BENDINGOrdered By: Maik Barbosa on 02-10-2021 IMPRESSION: Lumbar spine visually is fairly well preserved. There is no evidence of fracture, listhesis, significant disc space narrowing or major degenerative changes. There is a very good range of motion without instability.[facility] HospitalEXAM: XR SPINE LUMBAR W BENDING HISTORY: back [...] of motion. There is no listhesis or instability.[facility] HospitalUser, Interfaces - 02/10/2021 4:52 PM EDT EXAM: [...] very good range of motion without instability. [facility] Vital Signs Date TimeVital SignValuePerforming QzmuynnvnLadmbywh81-52-0978 14:24-0500Body zckaiw417.18 cmTrihealth Mcc[facility]02-05-2025 14:24-0500Body mass index (BMI) [Ratio]35.2 kg/p9MvlitiflhTrihealth Mccullough-Hy[facility] Hospital02-05-2025 14:24-0500Body demdsczbthg76.7 [degF][facility]02-05-2025 14:24-0500Body ycabub687.2 kgTrihealth Mccullough-Hyde [facility] Hospital02-05-2025 14:24-0500Diastolic blood rapdxfdq56 mm[Hg][facility] 10-16-2024 14:24-0500Heart rate86 /minTrihealth Mccullough-Hyde Memorial Hospital 10-16-2024 14:24-8451KsX8% (BldA) [Mass fraction]96 %[facility]02-05-2025 14:24-0500Systolic blood mm[Hg][facility]01-06-2025 15:18-0500Body iimkjq223.18 cmTrihealth Mccull[facility] Hospital01-06-2025 15:18-0500Body mass index (BMI) [Ratio]34.7 kg/m2 [facility]01-06-2025 15:18-0500Body ssedkl976.69 kg [facility]01-06-2025 15:18-0500Diastolic blood ehwumxsl71 mm[Hg][facility]01-06-2025 15:18-0500Heart rate70 /min [facility]01-06-2025 15:18-0500Systolic blood tuonfaie131 mm[Hg][facility]09-04-2024 15:36-0400Body scuium877.7 cm Blas Frazier ELIGIBILITY WORKER Work Phone: [facility] HospitalEzofwouoeu70-82-6291 15:36-0400Diastolic blood mm[Hg]Blas Frazier ELIGIBILITY WORKER Work Phone: noSaint [facility] Saint [facility] HospitalHspwqnnuup62-69-3288 15:36-0400Heart rate70 /min Blas Frazier ELIGIBILITY WORKER Work Phone: noSaint [facility] Saint Francis HospitalPljdyijilp76-41-3225 15:36-4280JiJ6% (BldA) [Mass fraction]94 %Blas Frazier ELIGIBILITY WORKER Work Phone: [facility] HospitalCuxmhcbrwu33-68-4314 15:36-0400Systolic blood luugypvg574 mm[Hg]Blas Searsestefany ELIGIBILITY WORKER Work Phone: noSaint John's Saint Francis HospitalHuxeafgndb66-66-1375 15:30-0500Body iiiatd272.18 cmKell Tawnya Other [employer] Other 804499-55-0729 15:30-0500Body mass index (BMI) [Ratio] 33.04 kg/r0TuwobwKell Bowling Other [employer] Other 12-21-2023 15:30-0500Body qmaevw62.71 kgKell Bowling Other [employer] Other 646893-29-5738 15:30-0500Diastolic blood lazvsceb81 mm[Hg] Kell Bowling Other [employer] Other 12-21-2023 15:30-0500Systolic blood akzstudf778 mm[Hg] Kell Bowling Other [employer] Other 11-21-2023 08:30-0500Body .18 cmKell Bowling Other [employer] Other 11-21-2023 08:30-0500Body mass index (BMI) [Ratio] 35.14 kg/h1ZaimftKell Bowling Other [employer] Other 11-21-2023 08:30-0500Body .79 kgKell Bowling Other [employer] Other 11-21-2023 08:30-0500Diastolic blood wbjlpaxy20 mm[Hg] Kell Bowling Other [employer] Other 11-21-2023 08:30-0500Systolic blood vedxzdru811 mm[Hg] Kell Bowling Other [employer] Other 08-06-2021 12:05-0400Diastolic blood mm[Hg] Maik Barbosa MD Work Phone: [facility]08-06-2021 12:05-0400Heart rate54 /Reva Barbosa MD Work Phone: 1(897)580-[address] [place], [place] 7186508-06-2021 12:05-0400Respiratory rate16 /Reva Barbosa MD Work Phone: 1(995)712-[address] [place], [place] 7186508-06-2021 12:05-4074UgH9% (BldA) [Mass fraction]95 %Maik Barbosa MD Work Phone: [phone]08-06-2021 12:05-0400Systolic blood mm[Hg]Maik Barbosa MD Work Phone: 1(699)953-[address] [place], [place] 7186507-07-2021 08:04-0400Body height 170.2 cmAtrina Barbosa MD Work Phone: 1(322)126-[address] [place], [place] 7186507-07-2021 08:04-0400Body mass index (BMI) [Ratio]34.61 kg/l7GcqzxMaik Barbosa MD Work Phone: 1(840)635-[address] [place], [place] 7186507-07-2021 08:04-0400Body weight 100.25 kgMaik Barbosa MD Work Phone: 1(657)736-[address] [place], [place] 7186507-07-2021 08:04-0400Diastolic blood mrxldfex73 mm[Hg]Maik Barbosa MD Work Phone: 1(228)115-[address] [place], [place] 7186507-07-2021 08:04-0400Heart rate74 /Reva Barbosa MD Work Phone: [phone]07-07-2021 08:04-0400Respiratory rate20 /Reva Barbosa MD Work Phone: 1(456)803-[address] [place], [place] 7186507-07-2021 08:04-8377DoM3% (BldA) [Mass fraction]96 %Maik Barbosa MD Work Phone: 1(045)217-[address] [place], [place] 7186507-07-2021 08:04-0400Systolic blood hevunshn569 mm[Hg]Maik Barbosa MD Work Phone: 1(138)066-[address] [place], [place] 7186506-16-2021 12:02-0400Diastolic blood onqynifw477 mm[Hg]Maik Barbosa MD Work Phone: 1(182)178-[address] [place], [place] 7186506-16-2021 12:02-0400Heart rate55 /minMaik Barbosa MD Work Phone: 1(669)301-[address] [place], [place] 7186506-16-2021 12:02-0400Respiratory rate18 /minMaik Barbosa MD Work Phone: 1(922)303-[address] [place], [place] 7186506-16-2021 12:02-2584ZnU6% (BldA) [Mass fraction]95 %Maik Barbosa MD Work Phone: 1(522)785-[address] [place], [place] 7186506-16-2021 12:02-0400Systolic blood zjacprjn272 mm[Hg]Maik Barbosa MD Work Phone: 1(216)673-[address] [place], [place] 7186506-02-2021 11:46-0400Body height 170.2 cmAtrina Barbosa MD Work Phone: 1(351)934-[address] [place], [place] 7186506-02-2021 11:46-0400Body mass index (BMI) [Ratio]34.61 kg/i1WjcscMaik Barbosa MD Work Phone: 1(909)776-[address] [place], [place] 7186506-02-2021 11:46-0400Body weight 100.25 kgMaik Barbosa MD Work Phone: 1(903)647-[address] [place], [place] 7186506-02-2021 11:46-0400Diastolic blood dvkyltjb73 mm[Hg]Maik Barbosa MD Work Phone: 1(990)396-[address] [place], [place] 7186506-02-2021 11:46-0400Heart rate64 /Reva Barbosa MD Work Phone: 1(388)439-[address] [place], [place] 7186506-02-2021 11:46-0400Respiratory rate18 /minMaik Barbosa MD Work Phone: [facility]06-02-2021 11:46-8068NjF9% (BldA) [Mass fraction]99 %Maik Barbosa MD Work Phone: [facility]06-02-2021 11:46-0400Systolic blood ogfglseb226 mm[Hg]Maik Barbosa MD Work Phone: [facility] Encounters Encounter DateEncounter TypeCare ProviderFacilityStart: 89-23-2782rofhtbwnee Chata Inman LueFacility:EU BellevueStart: 05-05-2025 End: 51-91-4699amkkmcbyunQfxeklf Vytautas Giedraitis MDFacility:PM Johnna Start: 03-24-2025 End: 13-94-6907zppcqgldklVgjujik Vytautas Giedraitis MDFacility:PM Johnna Start: 10-16-2024 End: 21-59-6071gddecuthjoOnhnmbxrzCleveland Clinic Foundation Work Phone: Start: 10-16-2024 End: 45-12-2874Tggwxrw encounter procedureLifebrite [facility] Work Phone: Start: 09-16-2024 End: 19-61-1178itjwzlnnefVinfgiakiCleveland Clinic Foundation Work Phone: Start: 09-16-2024 End: 04-34-4184Vubrjyzkt for general adult medical examination without abnormal findingsParkview Health Bryan Hospitaltart: 09-16-2024 End: 18-48-3215Deffbef encounter procedureLifebrite [facility] Work Phone: Start: 07-31-2024 End: 14-29-4620jfpprzzujhDlckd M. LueFacility:EU BellevueStart: 26-48-7405Ncr- patient / Non-visitFirlewisgale hospital [facility] Work Phone: Start: 93-48-2864Kwuilqr encounter statusParkview Health Bryan Hospitaltart: 44-80-7379Prn-patient / Non-visitFirelands Physician Group-[facility] Work Phone: Start: 07-22-2024 End: 49-97-9672xquapnslqyXdcllca Vytautas Giedraitis MDFacility:PM Johnna Start: 05-15-2024 End: 84-25-4072rxbohvbgbrYTEFJS KARINNot AvailableStart: 05-15-2024 End: 32-38-7721Fsqlon outpatient visit 25 minutesAngela Karin ELIGIBILITY WORKER Work Phone: noms [facility] ROUTEComment on above:PLMD (periodic limb movement disorder) (Primary Dx); Hypersomnia; JOSÉ (obstructive sleep apnea); SnoringStart: 05-15-2024 End: 00-77-5589Fqungu flowsheetAngecarito Carpenterr ELIGIBILITY WORKER Work Phone: noms [facility] R[facility]TEStart: 05-15-2024 End: 21-79-8675Ujrzid flowsheetAngela Renumor ELIGIBILITY WORKER Work Phone: noms [facility] ROUTEStart: 02-21-2024 End: 53-99-0024ljdjlwdmmqBVLLBW KHRISNot AvailableStart: 12-26-2023 End: 51-68-6173wpwbqoleytCrcizp E BraunFacility:[facility] Hospitaltart: 17-75-4782Djo-patient / Non-visitFirelands Physician Group-[facility] Work Phone: Start: 54-51-8715Uzn-patient / Non-visitFirelands Physician [facility] Work Phone: Start: 64-61-5938Xvi-patient / Non-visitFirelands Physician Group-[facility] Work Phone: Start: 54-60-6415Zug-patient / Non-visitFirelands Physician Group-[facility] Work Phone: Start: 10-02-2023 End: 98-80-6613Cyngfgq encounter procedureFirelands Physician Group-Start: 08-31-2023 End: 14-96-8458ohzknkkppjWcodiq Braun Other [employer] Other Start: 62-68-6170Plbtzz outpatient visit 15 minutes Kell [facility]q Health Centertart: 08-01-2023 End: 48-90-9304xdviwidcnnCwvfla Braun Other [employer] Other Start: 36-47-0153Jpjjzkvts for general adult medical examination without abnormal findingsMarcia Maniilaq Health Centertart: 08-41-5582Ozxovdnv preventive med est patient 40-64yrsMarcia Maniilaq Health Centertart: 01-06-2023 End: 16-44-1852ldtsirkdafLV KELL BOWLINGFacility:C1Jutit: 08-24-2022 End: 73-83-5014wsrybttzmfZM KELL BOWLINGFacility:B5Yjjzl: 45-68-9517uiiofnyztu DR KELL BOWLINGFacility:O3Noaww: 33-59-4824jbwhretldzTE KELL BOWLING Facility:K0Icgib: 15-63-0485ujjrthdogkWK MARCIA E BRAUNFacility:R5Rwbfc: 07-21-2022 End: 43-06-2898weapuzwbelQC MEENU IsidroFacility:U9Jbnya: 06-20-2022 End: 75-26-5885jzqzwfwiyvBL KELL BOWLINGFacility:N3Ecrvt: 87-50-1343Sodfsdqvm for general adult medical examination without abnormal findingsDR KELL BOWLING [facility] Hospitaltart: 05-27-2022 End: 84-13-3735uuqajrfgkuSD KELL Monet BRAUNFacility:K0Bvujn: 05-27-2022 End: 39-05-3949Yuwvcsexn for general adult medical examination without abnormal findingsDR KELL BOWLINGFacility:B6Kyrji: 01-19-2022 End: 41-76-6755evofdfgaxnUX MARCIA E BRAUNFacility:B1Bkpui: 04-16-2021 End: 13-90-5720Zddimzo encounter procedureMaik Barbosa MD Work Phone: [facility] Procedural Pain ManagementComment on above:Lumbar spondylosis (Primary Dx); Chronic pain syndrome; Myofascial painStart: 03-17-2021 End: 07-88-2756Zqbcvb outpatient visit 15 minutesMaik Barbosa MD Work Phone: [facility] Pain ClinicComment on above:Lumbar spondylosis (Primary Dx); Lumbar radiculopathy; Spinal stenosis of cervical region; Chronic pain syndrome; Myofascial painStart: 02-24-2021 End: 29-70-2431Keiabilv Support EncounterMaik Barbosa MD Work Phone: [facility] Pain ClinicComment on above:Myofascial pain (Primary Dx)Start: 02-10-2021 End: 23-26-3769Qjgcklazwr hospital visit by physicianMaik Barbosa MD Work Phone: [facility] Diagnostic RadiologyComment on above: ArrivedStart: 02-10-2021 End: 00-60-7219Qjcswp outpatient new 45 minutesMaik Barbosa MD Work Phone: [facility] Pain ClinicComment on above:Myofascial pain (Primary Dx); Arthropathy of cervical facet joint; Spondylosis of lumbar region without myelopathy or radiculopathy; Chronic pain syndrome; Compliance with medication regimen Procedures DateProcedureProcedure DetailPerforming ClinicianStart: 53-72-2105Kgmkq Strep (POC)Start: 88-99-6520WUP screeningDR KELL BOWLINGComment on above:Performed By: #### PSASC #### [facility] [address] [place] [address] Dr. Horta ChangStart: 61-39-9975Ullip spine lumbscrl compl w/bending views min 6 Maik Barbosa MD Work Phone: Plan of Treatment DateCare ActivityDetailAuthorStart: 05-21-2021 End: 69-98-4526Ziorfgh encounter owidwvxld07/10/2021 Office Visit Anesthesiology Pain Mgt Maik Barbosa MD [address] [place] [address] [facility] Procedural Pain ManagementStart: 72-03-2804Plzdelthz [facility] Hospitaltart: 05-07-2021 End: 13-73-9232Vdzrkov encounter hhupznukz33/27/2021 Office Visit Anesthesiology Pain Mgt Maik Barbosa MD [address] [place] [address] [facility] Procedural Pain ManagementStart: 05-03-2021 End: 20-15-5571Hfoyvdl encounter wamldhbqm20/23/2021 Office Visit Anesthesiology Pain Mgt Maik Barbosa MD [address] [place] [address] [phone] [facility] ClinicStart: 04-27-2021 End: 85-79-6213Exlfuqw encounter krfgporlq71/17/2021 Office Visit Anesthesiology Pain Mgt Maik Barbosa MD [address] [place] [address] [facility] ClinicStart: 03-17-2021 End: 49-87-5046Tolvdfc encounter ubqiufnpv61/07/2021 Office Visit Anesthesiology Pain Mgt Maik Barbosa MD [address] [place] [address] [phone] [facility] ClinicStart: 02-24-2021 End: 41-29-0086Jauycwu encounter qsjgotccb51/16/2021 Office Visit Anesthesiology Pain Mgt Maik Barbosa MD [address] [place] [address] [phone] [facility] Procedural Pain ManagementStart: 02-10-2021 End: 79-15-7879ZCPN SCREEN MED COMPLIANCE IDRUG SCREEN MED COMPLIANCE I Lab Routine Compliance with medication regimen Expected: 02/10/2021, Expires: 02/11/2021[facility] HospitalComment on above:Expected: 02/10/2021, Expires: 02/11/2021tart: 07-64-3221Wzjvwlzw specific antigen measurementPROSTATE CANCER SCREENING DISCUSSIONNorwalk Memorial Hospitaltart: 85-42-4528Gpriep vaccine hzv live for subcutaneous useZOSTER (SHINGLES) VACCINE (1 of 2)[facility] Hospitaltart: 83-12-8565QnfyxacbpbnIMKJCZPFKN CANCER SCREENING DISCUSSIONSelect Medical [facility] Start: 37-18-0625Sskqiya lipid profileLIPID SCREENINGNorwalk Memorial Hospitaltart: 04-99-0854Nuiyk diphtheria, tetanus and acellular pertussis (DTaP) vaccination TDAP (ADULT)[facility] Hospitaltart: 79-75-5324Zhdofuk vaccinationTETANUSAPaulding County Hospitaltart: 73-54-6944WDM screeningHIV SCREENING DISCUSSIONNorwalk Memorial Hospitaltart: 72-49-7039ZUIMI-19 VACCINE (1)COVID-19 VACCINE (1)[facility] Hospitaltart: 89-47-2172Kxompogya C antibody, confirmatory testHEPATITIS C VIRUS SCREENINGCorey Hospital Payers DatePayer CategoryPayerPolicy [id number] [id number]ttpk1064 1.2.840.592968.1.13.172.2.7.3.494771.74901-33-0933Tmyrspu1033460 2..840.1.914614.3.579.[id number] 2.16.840.1.131296.3.579.2.09083-48-7604Uhxcxox0180629 2.16.840.1.433337.3.579.2.54668-95-8295Nzdneul8475438 2.16.840.1.422908.3.579.2.47015-03-3701Jvhyscx2951436 2.16.840.1.007344.3.579.2.57666-33-3845Uzsxkzr1540802 2.16.840.1.836866.3.579.2.76941-66-8863Mlgfvqk8326518 2.16840.1.929467.3.579.2.37339-19-6965Uoebhaa9792387 2.16840.1.255806.3.579.2.44447-50-1969Htkovlj8697943 2.16840.1.895546.3.579.2.704306-18-0371Tftvaok2276789 2.0.1.303252.3.57[id number] 2.840.1.936043.3.579.2.45752-34-6306Cdjfzzi69404835 2.840.1.664719.3.579.2.81346-80-0064Gtspwjb907977289 2.840.1.019555.3.579.2.87[id number] 2.840.1.579710.3.579.2.48[id number] 2.16840.1.897434.3.579.2.14676-71-7711Pkyy-[id number] 2.16840.1.937194.3.579.2.114Vmfadyy45861845 2.840.1.616698.3.579.2.531 Social History DateTypeDetailFacilityStart: 02-10-2021 End: 37-35-3984Qwxwpyu smoking status NHISNever smokerNorwalk Memorial Hospitaltart: 02-10-2021 End: 34-90-7753Jrqmehk use and exposureNever usedNorwalk Memorial Hospitaltart: 02-10-2021 End: 23-71-2776Bsfjppu intakeCurrent drinker of alcohol (finding)[facility] Hospitaltart: 02-10-2021 End: 28-75-3045Ypcvpon intakeNorwalk Memorial Hospitaltart: 40-71-0676Pnlvfiy Comment 5 beers/weekNorwalk Memorial Hospitaltart: 19-56-2761Skn Assigned At [facility]okeNot on file [facility] Hospitaltart: 02-21-2024 End: 43-83-5411Vmz Assigned At [facility] [employer] Other Start: 14-10-0683Nrn Assigned At [facility] CompanyTobacc smoking status NHISUnknown if ever smoked [facility] Work Phone: Start: 09-16-2024 End: 31-88-6283GnhMvon (finding)[facility] Clinical Notes 02-10-2021 to 09-16-2024 Note Date & MoiuFlubJkyijglo63-13-2821 Evaluation note* Diagnosis Onset Date Resolution Status Admit Date Elevated serum creatinine acuteJanuary 2024 2:49pmWellness examinationacuteJanuary 2024 2:49pm Influenza AacuteFebruary 2024 2:16pm [facility] Work Phone: 1(978) 385-453211-20-2024 NotePatient Education Urology Erectile Dysfunction Erectile dysfunction [...] these instructions at home: Medicines ??? Take diix-goe-xsngxwr and prescription medicines only as told by [...] ??? Do not u (more content not included)...[facility]09-04-2024 History of Present illness Narrative* Blas Frazier, IMAN - 05/15/2024 3:30 PM EDT Images from [...] a different pressure . . . Plan Naoma Sleepiness Scale is 10 Compliance download reviewed [...] was counseled on the risks of stroke, NM, and sudden with JOSÉ, along with the need for compliance with the CPAP/BiPAP treatment. The patient was counseled on proper sleep hygiene and adequate hours of sleep. Return to clinic: 3-4 months documented in this encounterUniversity HospitalHekzajxojb15-45-2083 Evaluation note* Encounter Date Diagnosis Assessment Notes Treatment Notes Treatment Clinical Notes Aug, Other obesity due to excess kera yamila (ICD-10 - E66.09) Patient has clearly made [...] plateau. Pt aware that they need to continueto work hard at weight loss or the weight will be regained. Side effects discussed and understood. Pt education printed and discussed. Pt notified of prescribing schedule with 30 day dispensing, no re fills, for up to 12 weeks, with a 6 month break in-between treatments. Id SOB, CP, mood changes, tachycardia, HTN, headaches, blurred vision occur, go to ER and Follow-up with me immediately. Aug,ody mass index [BMI] 33.0-33.9, adult (ICD-10 - Z68.33) [employer] Other 11-21-2023 Evaluation note* Encounter Date Diagnosis Assessment Notes Treatment Notes Treatment Clinical Notes Jul, Well adult exam (ICD-10 - Z00.00 ) We have discussed the necessity of following [...] vaccinations that apply. All questions answered and p atient is sent home pleased, without concerns. Jul,Low back pain, unspecified (ICD-10 - M54.50)Pt requests referral to [place] [facility]. He hopes to lessen his use of NSAIDs to improve his renal function. Jul,Other chronic pain (ICD-10 - G89.29) Jul,OSA (obstructive sleep apnea) (ICD-10 - G47.33)Form completed for [facility]. Jul,lass 2 obesity with body mass index (BMI) of 35 to 39.9 without comorbidity (ICD-10 - E66.9)Patient has clearly made a good michael effort [...] plateau. Pt aware that they need to continueto work hard at weight loss or the weight will be regained. Side effects discussed and understood. Pt education printed and discussed. Pt notified of prescribing schedule with 30 day dispensing, no refills, for up to 12 weeks, with a 6 month break in-between treatments. Id SOB, CP, mood changes, tachycardia, HTN, headaches, blurred vision occur, go to ER and Follow-up with me immediately. [employer] Other 08-06-2021 History and physical note* Maik [...] bilateral lumbar facet block documented in this [facility]08-06-2021 History of Present illness Narrative* Humera Genao RN - 04/16/2021 11:30 AM EDT SCRUB - Shellie Alaniz RN RT - RT Ilia PR INTERNSHIP - N/A DIRECTOR RISK - Aurelio Genao RN Site cleansed with [...] and earlier as needed. documented in this encounterSelect [facility]08-06-2021 Instructions* Patient Instructions* Geovanna Degroot RN - 04/16/2021 11:30 AM EDT [facility] WHAT TO EXPECT AFTER A PROCEDURE Follow up appointment: Call the office ([phone]) if you have any questions or develop [...] [facility] documented in this encounterSelect [facility]07-07-2021 History of Present illness Narrative* Maik [...] tried OTC tylenol, celebrex with somemild relief. [place] has helped in the past, but would [...] Denies dysuria or frequency documented in this encounterSelect Medical [facility]health [facility] Hospital07-07-2021 Instructions* Patient Instructions* Geovanna Degroot RN [...] complications are extremely rare. documented in this [facility]06-16-2021 History and physical note* Maik [...] trapezius, and lumbar paraspinal documented in this [facility]06-16-2021 History of Present illness Narrative* Madina Summers RN - 02/24/2021 11:15 AM EDT PHYSICIAN - SCRUB - Kitty Martinez RN DIRECTOR RISK - [facility] Site cleansed with chloroprep. Procedure: [...] Denies dysuria or frequency documented in this encounterSelect Medical [facility] Hospital06-02-2021 History of Present illness Narrative* Maik [...] Social Gatherings with Friends and Family: Attends [employer] Services: Active Member of Clubs or Organizations: [...] tried OTC tylenol, celebrex with somemild relief. [place] has helped in the past, but would [...] to notice this pain generator years ago. Mnauel does not recall an inciting event .Pain [...] within the last year. [facility] Instructions* Patient Instructions* Geovanna Degroot RN [...] read the attached handout from the National [place] [employer] with guidelines and recommendations for [...] complications are extremely rare. [facility] Diagnosis Myofascial pain- Primary Mylagia and myositis, unspecified Arthropathy of cervical facet joint Cervical spondylosis without myelopathy Spondylosis of lumbar region without myelopathy or radiculopathy Lumbosacral spondylosis without myelopathy Chronic pain syndrome Compliance with medication regimen [facility] Diagnosis Spondylosis of lumbar region without myelopathy or radiculopathy Lumbosacral spondylosis without myelopathy [facility] Diagnosis Myofascial pain- Primary Mylagia and myositis, unspecified [facility]* Diagnosis Lumbar spondylosis- Primary Lumbosacral spondylosis without myelopathy Lumbar radiculopathy Thoracic or lumbosacral neuritis or radiculitis, unspecified Spinal stenosis of cervical region Spinal stenosis in cervical region Chronic pain syndrome Myofascial pain Mylagia and myositis, unspecified [facility] Diagnosis Lumbar spondylosis- Primary Lumbosacral spondylosis without myelopathy Chronic pain syndrome Myofascial pain Mylagia and myositis, unspecified [facility] noteNo assessment information availableCenterville Work Phone: Evaluation note* Diagnosis PLMD (periodic limb movement disorder)- Primary Periodic limb movement disorder Hypersomnia Hypersomnia, unspecified JOSÉ (obstructive sleep apnea) Obstructive sleep apnea (adult) (pediatric) Snoring Other dyspnea and respiratory abnormality [facility] Diagnosis Onset Date Resolution Status Admit Date Elevated serum creatinine acuteJanuary 2024 2:49pmWellness examinationacuteJanuary 2024 2:49pm [facility] Work Phone: History general Narrative - Reported* Type Description Date Medical History Elevated cholesterol with elevat ed triglycerides Medical HistoryLow serum testosterone levelMedical HistoryLumbar painMedical HistoryHypertensionMedical HistoryDiverticulosisSurgical HistoryR shoulder arthroscopySurgical HistoryFB R wristSurgical HistoryUmbilical hernia repair 07/12/2023Surgical CkmmnyqJtuhedmdpza49/15/2023Hospitalization HistorySEE SURGICAL [employer] Other Reason for Referral StatusReasonSpecialtyDiagnoses / ProceduresReferred By ContactReferred To ContactAuth Not Needed Diagnoses Myofascial pain Chronic pain syndrome Maik Barbosa MD [address] [place] [address] Scheduling Instructions Please PA and schedule: neck and back TPI (pt will need a [address] Barbosa) Reason *FU 08/08 chronic lumbar pain, would benefit from less NSAID use. Diagnosis 1 Low back pain, unspe cified (M54.50) Referral Organization [facility] xochitl Referring Provider First Name Kell Referring Provider Last Name Tawnya Referring Provider Specialty Family Medi cine Referred Organization [facility] Referred Address [address] [place], [place],[address] Referred Provider Specialty Pain Medicin e Referral Priority Routine General Notes Es Cooper 05:14:13 PM >received today, attachments made, notes locked, referral faxed Clinical Notes f: [id number] Summary Purpose Family History No Family History Records Found Relationship Condition Age at Onset Recorded Date/T mita father Hypertension Unknown Not SpecifiedDeceasedUnknown Relationship Condition Age at Onset Recorded Date/T mita father Hypertension Unknown motherDeceasedUnknown Advance Directives No Advanced Directives Records Found Advance Directive Response Recorded Date/ Time Advance Directives No December 25, 024 3:00pm Advance Directive Response Recorded Date/ Time Advance Directives No December 25 024 2:00pm Chief Complaint and Reason for Visit Chief Complaint 1 Month Follow Up Amb Documentation Chief Complaint Admit Date Wellness/go over results September 16 2:49pm Reason for Visit Admit Date Elevated serum creatinine September 16 025 2:49pm Wellness examination September 16, 2024 2 :49pm Chief Complaint Admit Date Wellness/go over results September 16 2:49pm COVID-/Sore Throat October 16, 2024 2 :16pm Reason for Visit Admit Date Elevated serum creatinine September 16 025 2:49pm Wellness examination September 16, 2024 2 :49pm Influenza A October 16, 2024 2 :16pm Additional Source Comments Reason for Visit (unrecogniz ed section and content) ReasonCommentsPainReasonCommentsNeck PainStatusReasonSpecialtyDiagnoses / ProceduresReferred By ContactReferred To ContactClosed Diagnoses Myofascial pain Chronic pain syndrome Maik Barbosa MD [address] [place] [address] ReasonCommentsPainSpecialtyDiagnoses / ProceduresReferred By ContactReferred To Contact Diagnoses Lumbar facet arthropathy Maik Barbosa MD [address] [place] [address] Referral IDStatusReasonStart DateExpiration DateVisits RequestedVisits [id number]/29/202211 (unrecognized sect ion and content) No Status Records FoundNo Status Records FoundNo Status Records FoundNo Status Records FoundNo Status Records FoundNo Status Records Found INFORMATION SOURCE (unrecogn ized section and content) DATE CREATED AUTHOR 05/10/2021 [facility] DATE CREATED AUTHOR AUTHOR'S ORGANIZ ATION 01/13/2023 [facility] DATE CREATED AUTHOR AUTHOR'S ORGANIZ ATION 12/28/2023 [facility] DATE CREATED AUTHOR AUTHOR'S ORGANIZ ATION 05/17/2024 [facility] DATE CREATED AUTHOR AUTHOR'S ORGANIZ ATION 08/02/2024 [facility] DATE CREATED AUTHOR AUTHOR'S ORGANIZ ATION 05/10/2025 [facility] Care Teams (unrecognized sec tion and content) Team Status: Active Member Role Status Dates Kell Bowling MD Primary Care Provider Active Team Status: Active Member Role Status Dates Kell Bowling MD Primary Care Provider Active Start: July 29, 2024 Chata Page MDAttending ProviderActiveStart: July 29, 2024 Team Status: Active Member Role Status Dates Kell Bowling MD Primary Care Provide r, Attending Provider Active Start: July 30, 2024 Team Status: Inactive Member Role Status Dates Kell Bowling MD Primary Care Provide r, Attending Provider Active Start: September 16, 2024 End: September 16, 2024Team MemberRelationshipSpecialtyStart DateEnd Date Kell Bowling MD [facility] [place] [address] PCP - GeneralFamily Medicine02/10/21 Team Status: Inactive Member Role Status Dates Kell Bowling MD Attending Provider Active St art: October 02, 2023 End: October 02, 2023 Team Status: Active Member Role Status Dates Kell Bowling MD Primary Care Provide r, Attending Provider Active Start: November 08, 2023 Team Status: Active Member Role Status Dates Kell Bowling MD Primary Care Provider Active Start: November 20, 2023 Nano Viramontes ProviderActiveStart: November 20, 2023 Team Status: Active Member Role Status Dates Kell Bowling MD Primary Care Provide r, Attending Provider Active Start: December 19, 2023 Team Status: Active Member Role Status Dates Kell Bowling MD Primary Care Provide r, Attending Provider Active Start: December 26, 2023 Tl [place] ProviderActiveStart: December 26, 2023 End: December 26, 2023Team MemberRelationshipSpecialtyStart DateEnd Date Kell Bowling MD [address] [place] [address] [facility]02/21/24Team MemberRelationshipSpecialtyStart DateEnd Date Kell Bowling MD [address] [place] [address] [facility]02/21/24 Team Status: Inactive Member Role Status Dates Kell Bowling MD Primary Care Provider Active Start: October 16, 2024 End: October 16, 2024Geovanna Clarke APRN ELIGIBILITY WORKER-CAtjonelle ProviderActive Start: October 16, 2024 End: October 16, [...] BE BASED ON THE PRIMARY CLINICAL RECORDS. [facility]. provides no warranty or guarantee of the accuracy or completeness of information in this document.
--- OUTSIDE RECORDS SUMMARY | 2025-07-09 15:07 | XMS_ITS | Clinical Summary ---
Author Organization [facility] Healthcare Address [address] [place] [address] Care Team Providers Care Forest Supervisor Name Role Phone Kell Jack MD Primary Care Provider [phone] Allergies No known active allergies Medications MedicationSigDispense QuantityRefillsLast FilledStart DateEnd DateStatus atenolol-chlorthalidone (Tenoretic) 50-25 MG tablet Take 1 tablet by mouth Daily02/15/2024ctive B Complex-C (b complex-vitamin c) tablet Take 1 tablet by mouth in the morning.Active Restasis 0.05 % ophthalmic emulsion Administer 1 drop into both eyes in the morning and 1 drop before bedtime. 01/11/2024ctive diclofenac (Voltaren) 75 MG EC tablet Take 75 mg by mouth in the morning and 75 mg before bedtime.Active DULoxetine (Cymbalta) [address] capsule Take 30 mg by mouth Daily12/20/2023ctive methocarbamol (Robaxin) 750 MG tablet Take 750 mg by mouth in the morning and 750 mg in the evening and 750 mg before bedtime.02/13/2024ctive omega-3 1000 MG capsule capsule Take by mouthActive Testosterone 20.25 MG/ACT (1.62%) gel APPLY 2 PUMPS TO CLEAN, DRY, INTACT SKIN EVERY BPVUCNK1101/30/2024ctive doxepin (SINEquan) 10 MG capsule Indications:JOSÉ (obstructive sleep apnea),Hypersomnia,PLMD (periodic limb movement disorder)TAKE 1 TO 2 CAPSULES BY MOUTH EVERY DAY AT BEDTIME 180 capsule 5Active Active Problems ProblemNoted DateDiagnosed DatePLMD (periodic limb movement disorder)05/15/2024 Gpyufkutfri29/04/2024OSA (obstructive sleep apnea)05/15/20246370Inzvwgh87/04/2024 Family History Medical HistoryRelationNameCommentsDiabetesFatherHeart diseaseFatherRelationName StatusCommentsFather Social History Tobacco UseTypesPacks/DayYears UsedDateSmoking Tobacco: NeverSmokeless Tobacco: NeverAlcohol UseStandard Drinks/WeekCommentsYes7 (1 standard drink = 0.6 oz pure alcohol)Sex and Gender InformationValueDate RecordedSex Assigned at BirthNot on fileLegal OnxYusq2201/30/2024 3:33 PM EDTGender IdentityNot on fileSexual OrientationNot on file Last Filed Vital Signs Vital SignReadingTime TakenCommentsBlood Owvkymfk322/8405/15/2024 3:36 PM EDT Ocpiz660005/15/2024 3:36 PM EDTTemperature--Respiratory Rmba754402/21/2024 3:27 PM EDTOxygen Riylseappi91%05/15/2024 3:36 PM EDTInhaled Oxygen Concentration-- Ieaqvt49.8 kg (220 lb)02/21/2024 3:27 PM BVUJfjlje131.7 cm (5' 8 )05/15/2024 3:36 PM EDTBody Mass Index33.45002/21/2024 3:27 PM EDT Plan of Treatment Health MaintenanceDue DateLast DoneCommentsCT Natvvavsfbja1970Colonoscopy 1970Colorectal Cancer Bcqkovyrh1970FIT-DNA1970FIT1970 FOBT1970 5792Rxmvqdwqhglfh1970Influenza Vaccine (#1)2025 Insurance Care Teams Team MemberRelationshipSpecialtyStart DateEnd Date Kell Jack MD [facility]
--- OUTSIDE RECORDS SUMMARY | 2025-07-09 15:07 | XMS_ITS | Patient Health Record ---
Author Organization [facility] [place] Address [address] [place] [address] Care Team Providers Care Interior Block Wirer Name Role Phone Kell Jack Primary Care Provider Unavailabl e Reason For Referral No Information Plan Of Treatment Pending Test Test Name [...] Coverage End Date [employer]M TRADITIONAL [address] [place] [id number] Manuel Burgos Self - patient is the insured AN[employer] ACCESS PPO PLUS LOCAL [address]AN[address] [place] [address] [id number], EricaSpouse - patient is the spouse of the insured
--- OUTSIDE RECORDS SUMMARY | 2025-07-09 15:07 | XMS_ITS | Clinical Summary ---
Author Organization [facility] Address [address] [place] [address] Care Team Providers Care Nip Wrapper Name Role Phone Kell Jack MD Primary Care Provider [phone] Medications MedicationSigDispense QuantityRefillsLast FilledStart DateEnd DateStatus diclofenac EC [address] tablet 02/05/2021ctive Testosterone 20.25 MG/ACT (1.62%) Gel gel APPLY 1 PUMP TOPICALLY EACH COTHIGR7901/09/2021ctive atenolol-chlorthalidone 50-25 MG tablet 02/05/2021ctive Multiple Vitamins-Minerals (PRESERVISION AREDS PO) Take by mouth 2 times daily.Active cyclobenzaprine 10 MG tablet Indications:Chronic pain syndrome,Myofascial painTake 1 tablet by mouth at bedtime as needed for Muscle spasms. 30 tablet 03/29/2022ctive DULoxetine [address] Particles capsule Indications:Lumbar radiculopathy,Spinal stenosis of cervical region,Chronic pain syndromeTake 1 capsule by mouth daily. 30 capsule ctive Active Problems ProblemNoted DateDiagnosed DateObesity (BMI 30.0-34.9)03/17/2021ssential (primary) vbfghfoptdrc51/07/2021 Social History Tobacco UseTypesPacks/DayYears UsedDateSmoking Tobacco: NeverSmokeless Tobacco: NeverAlcohol UseStandard Drinks/WeekCommentsYes5 (1 standard drink = 0.6 oz pure alcohol)5 beers/weekSex and Gender InformationValueDate RecordedSex Assigned at BirthNot on fileLegal PvlPmal1402/09/2021 11:59 AM EDTGender IdentityNot on file Sexual OrientationNot on file Last Filed Vital Signs Vital SignReadingTime TakenCommentsBlood Clylwuke362/9008 3:41 PM EDT denies dizziness/lightheadedness.Qjeyg9779 3:41 PM EDTTemperature-- Respiratory Cert6369 3:41 PM EDTOxygen Iipnogndhb43%05/07/2021 3:41 PM EDTInhaled Oxygen Concentration--Fejlan75.9 kg (218 lb)04/27/2021 11:09 AM EDT Dhwydq317.2 cm (5' 7 )04/27/2021 11:09 AM EDTBody Mass Index34.1408 11:09 AM EDT Plan of Treatment Health MaintenanceDue DateLast DoneCommentsHEPATITIS C VIRUS ARHCZBWZP1970 HIV SCREENING SOYKCPXBFL33/30/1985HEP B VACCINE (1 of 3 - 19+ 3-dose series) 1989LIPID KHJXHJFQY50/30/2010COLORECTAL CANCER SCREENING DISCUSSION 2015PNEUMOCOCCAL VACCINE SERIES (1 of 1 - PCV)02/08/2020ZOSTER (SHINGLES) VACCINE (1 of 2)02/08/2020PROSTATE CANCER SCREENING SQBQAPUFDJ73/30/2025OVID-19 VACCINE (1 - 2024- season)2025INFLUENZA VACCINE (#1)/11/2008 GNEWUOL59TDAP (ADULT)Roturxpcv93/29/2017 Insurance Care Teams Team MemberRelationshipSpecialtyStart DateEnd Date Kell Jack MD [facility]/10/[facility]
--- OUTSIDE RECORDS SUMMARY | 2025-07-09 15:08 | XMS_ITS | Clinical Summary ---
Author Organization [employer] [facility] Address [facility] [id number] [address] [place] [address] Care Team Providers Care Towel Cabinet Repairer Name Role Phone Kell Jack MD Primary Care Provider [phone] Allergies No known active allergies Medications MedicationSigDispense QuantityRefillsLast FilledStart DateEnd DateStatus atenoloL-chlorthalidone (TENORETIC) 50-25 mg per tablet Take 1 tablet by mouth in the morning.06/20/2022ctive cyclobenzaprine (FLEXERIL) 10 mg tablet Take 1 tablet (10 mg total) by mouth daily as needed.03/29/2022ctive diclofenac (VOLTAREN) 75 mg EC tablet Take 1 tablet (75 mg total) by mouth in the morning and 1 tablet (75 mg total) before bedtime.06/19/2022ctive DULoxetine (CYMBALTA) 30 mg capsule Take 1 capsule (30 mg total) by mouth in the morning.03/29/2022ctive sildenafiL (VIAGRA) 100 mg tablet TAKE 1 TABLET BY MOUTH ONCE DAILY NEEDED FOR ERECTILE PUAGPCYHKBW75/03/2022 Active testosterone (ANDROGEL) 20.25 mg/1.25 gram (1.62 %) gel in metered-dose pump APPLY 2 PUMPS TO SKIN EVERY GOLLXBV4506/23/2022ctive omega 5-ibx-faa-fish oil (Fish OiL) 300-1,000 mg capsule Take by mouth.Active ascorbic acid, vitamin C, (ascorbic acid) 250 mg tablet,chewable Chew and swallow.Active ergocalciferol, vitamin D2, (VITAMIN D2 ORAL) Take by mouth.Active B-complex with vitamin C tablet Take 1 tablet by mouth in the morning.Active Active Problems ProblemNoted DateDiagnosed NzaaRclyzvhr32/26/4456Lxyfpubefbod78/26/2022 Family History Medical HistoryRelationNameCommentsDiabetesFatherHeart diseaseFatherCancer Maternal AuntNo Known ProblemsMotherCancerPaternal GrandfatherHodgkin's lymphoma Paternal GrandfatherCancerPaternal GrandmotherLung cancerPaternal Grandmother RelationNameStatusCommentsFatherAliveMaternal AuntDeceasedMotherDeceasedPaternal GrandfatherDeceasedPaternal GrandmotherDeceased Social History Tobacco UseTypesPacks/DayYears UsedDateSmoking Tobacco: NeverSmokeless Tobacco: Never Tobacco Cessation:Counseling Given: Not Answered Alcohol UseStandard Drinks/WeekCommentsYes0 (1 standard drink = 0.6 oz pure alcohol)5-7 WKLY of whateverChildcareAnswerDate RecordedChildcareUnknown 02/20/2019EmploymentAnswerDate RzanpfrkRjexdeaknwHeigiup74/12/2019Hunger ScreeningAnswerDate RecordedWithin the past 12 months we worried whether our food would run out before we got money to buy more.Never True07/27/2023Food Insecurity - InabilityNot on file07/27/2023urpose - LifeAnswerDate Recorded Purpose and direction in qeieGfnkjsg33/11/2021ex and Gender InformationValue Date RecordedSex Assigned at FnnwlGaxz41/20/2022 3:24 PM EDTLegal SexMale 04/16/2015 12:12 PM EDTGender PiqlnhyyYgvt49/20/2022 3:24 PM EDTSexual OrientationNot on file Last Filed Vital Signs Vital SignReadingTime TakenCommentsBlood Yhyfmtwz767/9407/27/2023 2:29 PM EST Trhuz133807/27/2023 2:29 PM MOVLroaibezoxo46.9 ??C (98.4 ??F)07/06/2022 10:19 AM EDTRespiratory Rate--Oxygen Saturation--Inhaled Oxygen Concentration--Weight 100.2 kg (221 lb)07/27/2023 2:29 PM BISCyjpqp532.2 cm (5' 7 )07/27/2023 2:29 PM ESTBody Mass Index34.6107/27/2023 2:29 PM EST Plan of Treatment Health MaintenanceDue DateLast DoneCommentsDepression Yzzbiafxj31/30/1982Zoster (Shingles) Vaccine (1 of 2)02/08/2020Adult BMI Xktdorlom49 Tobacco Lfyffidqs76OVID-19 Vaccine ( season) , 08/03/2021, 10/21/2020, Additional history existsInfluenza Bsisnvd73/11/2008DTaP,Tdap and Td Vaccines (2 - Td or Tdap)05/09/2027 05/09/20179913Bhvbrcpywlx00 Medical Devices Not on file Procedures Procedure NamePriorityDate/TimeAssociated DiagnosisCommentsCOLONOSCOPYRoutine 06/28/2023 Screening for cancer from Last 3 Months or Most Recently Relevant to Health Maintenance Results * Colonoscopy (06/28/2023) Narrative Authorizing ProviderResult TypeResult StatusMichael Chiki SMITH PROCEDURE ORDERABLESFinal ResultPerforming OrganizationAddressCity/State/ZIP CodePhone Number MANUALLY TRANSCRIBED RESULTS from Last 3 Months or Most Recently Relevant to Health Maintenance Insurance Care Teams Team MemberRelationshipSpecialtyStart DateEnd Date Kell Jack MD [address] [place] [address] [facility] - [facility]05/31/22
== END 2025-07-09 15:02 | disposition home or self-care (01) ==
LOC: FHNEUROLOG 15:02
PROVIDERS: PCP Family Medicine; Visit Provider Psychiatry & Neurology Neurology
DX: G47.33 Obstructive sleep apnea (adult) (pediatric) (principal); R06.83 Snoring; G47.10 Hypersomnia, unspecified
CPT/HCPCS: G0463

== ENCOUNTER 2025-07-31 15:35 | Outpatient (OUT) | payer BC, SELFPAY ==
--- OUTSIDE RECORDS SUMMARY | 2024-04-18 06:30 | XMS_ITS ---
Author Organization [facility] in [place] Address [address] [place] [address] Care Team Providers Care Nipple Machine Operator Name Role Phone Guero FERMIN, Kell Primary Care Provider Unavailab Margaux Johnston Unavailable [phone] REASON FOR VISIT MD Encounters Encounter Location Date Provider Diagnosis [facility] [address] [place] [id number] 04/18/2024 Margaux Estrada Plan Of Treatment No Information Progress Notes * Manuel BURGOS GDOB: [birth year] (55 yo M)Acc No.[id number]:04/18/2024 UNLOCKED PROGRESS NOTE Progress Notes Patient: Manuel RESENDEZ :?Margaux Estrada M.D.:1970???Age:54 Y ???Sex:MaleDate:4Phone:[phone]:[address], [id number]:Kell Jack MD Subjective: * Chief Complaints: * 1 . MD. * Medical History: Objective: * Vitals: Assessment: Plan: * Treatment: * * Electronic signature of Margaux Estrada MD, [id number] on 07/31/2025 at 03:39 PM ESTSign off status: PendingVisit Status:?ANSPH (Voice) * Provider: Robert Estrada M.D. Date: 0 04/18/2024 Generated for Printing/Faxing/eTransmitting on:?07/31/2025 03:39 PM EST
--- OUTSIDE RECORDS SUMMARY | 2025-07-22 08:48 | XMS_ITS | Continuity of Care Document ---
Author Organization [facility] Address [address] [place] [address] Phone Care Team Providers Care Poultry Buyer Name Role Phone Kell Jack MD Primary Care Provider Christian Pablo DO Attending Provider My Villagomez DO Attending Provider Kell Jack MD Attending Provider Care Teams Patient Care Team Team Status: Active Member Role/Relationship Status Dates Kell Jack MD Primary Care Provider Active Visit Care Team Team Status: Active Member Role/Relationship Status Dates Kell Jack MD Primary Care Provider Active Start: July 08, 2025 Amanda Cerrato ProviderActiveStart: July 08, 2025 Patient Care Team Team Status: Active Member Role/Relationship Status Dates Kell Jack MD Primary Care Provider Active Start: July 09, 2025 Amanda Albarran ProviderActiveStart: July 09, 2025 Patient Care Team Team Status: Inactive Member Role/Relationship Status Dates Kell Jack MD Primary Care Provider Active Start: July 22, 2025 End: July 22, 2025Kell Jack MDAttezra ProviderActiveStart: July 22, 2025 End: July 22, 2025 Chief Complaint and Reason for Visit Chief Complaint Admit Date Discuss Adipex July 22, 2025 1:25pm Reason for Visit Admit Date Class 1 obesity with body ma ss index (BMI) of 34.0 to 34.9 in adult July 22, 2025 1:25pm Allergies, Adverse Reactions, Alerts Allergen Type Severity Reaction Last Updated Verified Status No Known Allergies Allergy Unknown July 22, 2025 1:31pmYesActive Social History Smoking Status Unknown if ever smoked Observation Status Observation Response Date of Response Legal Sex Male (finding) Sex Assigned At BirthMaleMay 1969 Family History Relationship Condition Age at Onset Recorded Date/T mita father Hypertension Unknown motherDeceasedUnknown Problems Active Problems Problem Diagnosis/Recorded Date Onset Date Stat us Influenza A October 16, 2024 2:40pm Unknown Ac tive Anemia November 06, 2023 4:43pm Unknown A ctive Wellness examination July 30, 2024 10:01am Unkno wn Active Elevated serum creatinine September 16, 2024 3:33pm Unk nown Active Iron deficiency anemia December 01, 2023 2:54pm Unknown Active Class 1 obesity with body ma ss index (BMI) of 34.0 to 34.9 in adult July 22, 2025 1:46pm Unknown Ac tive Medications Medication Status Dose Units Route Directions Qty Days Refills S tart Date Stop Date End Date Reason(s) Instructions Adherence Atenolol-Chlorthalidone 50-25 mg tablet Discontinued 0 .ROUTE.WUYIWSZ278Vjifq 2023 12:09pmSeptember 2023 12:23pmTAKE 1 TABLET BY MOUTH EVERY DAYDuloxetine 30 mg capsule,delayed release(DR/EC) Discontinued0.ROUTE.SMSOSFR718Wwfyb 2023 8:30amJuly 2023 2:55pmTAKE 1 CAPSULE BY MOUTH EVERY DAYDiclofenac Sodium 75 mg tablet,delayed release (DR/EC) Discontinued0.ROUTE.MKCQBUB558Plznw 2023 11:59amJune 2023 7:38amTAKE 1 TABLET BY MOUTH TWICE A DAYDiclofenac Sodium 75 mg tablet,delayed release (DR/EC)Discontinued0.ROUTE.WKMKWYW320Evea 2023 7:38amAugust 2023 12:53pmTAKE 1 TABLET BY MOUTH TWICE A DAYDuloxetine 30 mg capsule,delayed release(DR/EC)Discontinued0.ROUTE.XAEFZAA522Pbpk 2023 2:55pmOctober 2023 9:26amTAKE 1 CAPSULE BY MOUTH EVERY DAYDiclofenac Sodium 75 mg tablet,delayed release (DR/EC)Discontinued0.ROUTE.BCDQUQO987Gapdgs 2023 12:53pmOctober 2023 7:24amTAKE 1 TABLET BY MOUTH TWICE A DAYAtenolol- Chlorthalidone 50-25 mg tabletDiscontinued0.ROUTE.JPSCOOP904Vcqqjolib 4th, 2024 12:22pmFebruary 2024 10:15amTAKE 1 TABLET BY MOUTH EVERY DAYDuloxetine 30 mg capsule,delayed release(DR/EC)Discontinued0.ROUTE.DDYAAQB894Efkgdwx 3rd, 2024 9:amOctober 2023 8:07pmTAKE 1 CAPSULE BY MOUTH EVERY DAYDiclofenac Sodium 75 mg tablet,delayed release (DR/EC)Discontinued0.ROUTE.OXMJAHB911Acfoaqn 2023 7:24amDecember 2023 8:25amTAKE 1 TABLET BY MOUTH TWICE A DAY Duloxetine 30 mg capsule,delayed release(DR/EC)Discontinued0.ROUTE.SDFCVMP904 July 05, 2024 8:07pmMarch 2024 9:24amTAKE 1 CAPSULE BY MOUTH EVERY DAYDiclofenac Sodium 75 mg tablet,delayed release (DR/EC)Discontinued0.ROUTE .EZOVLCW146Hxfhclqg 10th, 2024 8:amFebruary 2024 12:21pmTAKE 1 TABLET BY MOUTH TWICE A DAYDiclofenac Sodium 75 mg tablet,delayed release (DR/EC) Discontinued0.ROUTE.BIZSIDA655Jikqiiog2024 12:20pmNovember 2024 1:41pmTAKE 1 TABLET BY MOUTH TWICE A DAYAtenolol-Chlorthalidone 50-25 mg tablet Discontinued0.ROUTE.PNBZUXB342BumllarlNovember 06, 2024 10:15amAugust 2024 12:51pmTAKE 1 TABLET BY MOUTH EVERY DAYDuloxetine 30 mg capsule,delayed release(DR/EC)Discontinued0.ROUTE.ONZVDMO102Kgxxp2024 9:23amNovember 2024 1:41pmTAKE 1 CAPSULE BY MOUTH EVERY DAYAtenolol-Chlorthalidone 50-25 mg tabletActive0.ROUTE.UPDNYZT245Xurxjf 2024 12:51pmTAKE 1 TABLET BY MOUTH EVERY DAYComplies with drug therapyOseltamivir (Tamiflu) 75 mg capsule Npkhqqlftgiu53RJYIVmbmd awrts8997Huyhjivs 2024 12:00amNovember 2024 1:33pmInfluenza due to influenza virus, type A, humanBenzonatate 200 mg capsule Yjhzledrjets177AEUSCpeye times daily as needed for aroug38976Wzzilwmu 2024 12:00amNovember 2024 1:32pmInfluenza due to influenza virus, type A, human Diclofenac Sodium 75 mg tablet,delayed release (DR/EC)Active0.ROUTE.CMJGXNU062 July 22, 2025 1:41pmTAKE 1 TABLET BY MOUTH TWICE A DAYComplies with drug therapyPhentermine (Adipex-P) 37.5 mg taxvdxKtmcbm64.4RUCEHownm84207Vjfpopht 2024 12:00amClass 1 obesity with body mass index (BMI) of 34.0 to 34.9 in adult Obesity, class 1 Body mass index [BMI] 34.0-34.9, adultmust administer 30 minutes before or 1-2 hours after breakfastComplies with drug therapyAtenolol-Chlorthalidone 50-25 mg uwrgefZsaxztjqrpng8KDVAZEkzamVxeeq 2023 11:00pmMarch 2023 12:09pm Duloxetine 30 mg capsule,delayed release(DR/EC)Yheypyrzlela12FXSDMoijqJyesq 2023 11:00pmApril 2023 8:30amDiclofenac Sodium 75 mg tablet,delayed release (DR/EC)Gzjzhltrolhw87BGCXPbqui dailyApril 2023 11:00pmApril 2023 11:59amTadalafil 20 mg xdxvilGoqifp11SAPPTjebXipeqix 2024 12:00am FreeTextSi tablet prn; Note: Source Status: Taking; Provider: Guero Castorena ( )Complies with drug therapyPhentermine 37.5 mg tablet Lobiwntwhxit34.5MGPODailyJanuary 2024 12:00amJanuary 2024 3:23pm FreeTextSi tablet before breakfast Orally Once a day; Note: Source Status: Refill; Refills: 0; Qty: 30 Tablet; Provider: Guero Castorena EMethocarbamol (Robaxin) 100 mg/mL idvjtspeWufojt8UVVNLngsh 8 hoursJanuary 2024 12:00am Complies with drug therapyTestosterone (Androgel) 1.62 % (20.25 mg/1.25 gram) gel in ynrnkpJlzyor2XCDMNLKIWZUDHUOYHeqtvGsflnvo 2024 12:00amapply to max area of ONE upper arem and shoulderComplies with drug therapyZonisamide 100 mg pgjjfygTetplc620YKXJZyltbSzqobxk 2024 12:00amComplies with drug therapy Doxepin 10 mg rnxqimcJbevimhjawmz30YWKQSpucmGagnldq 2024 12:00amNovember 2024 1:33pmTizanidine 4 mg cvcxayAeezwwxkkkqm1XGIFKbxtc at bedtime as neededJanuary 2024 12:00amNovember 2024 1:34pm Relevant Diagnostic Tests and/or Laboratory Data Laboratory Results Test Collection Date/Time Result Date/Time Result Interpretation Reference Range Result Comment Performing Site Testosterone Level July 08, 2025 9:16am June 122024 9:16am 616 ng/dL 264-916Adult male reference interval is based on a population ofhealthy nonobese males (BMI <30) between 19 and 39 yearsold. Joni et.al. JCEM 2017,102;7774-3058. PMID:[id number].Performed at: [facility] [id number] Director: Checo Pitts PhD, Phone: [phone] Prostate Specific Antigen ScreenOct2024 9:16amOct2024 9:16am1.21 ng/mL<=4.00Cholesterol/HDL RatioOct2024 9:16amOct2024 9:16am5.13.3 - 4.4 LOW RISK4.4 - 7.1 AVERAGE RISK7.1 - 11.0 MODERATE RISK>11.0 HIGH RISKAnion GapOct2024 9:16amOct2024 9:16am 13.7Basophils # (Auto)July 08, 2025 9:16amOct2024 9:16am0.1 10 3/uL0.0-0.1Cholesterol LevelOct2024 9:16amOct2024 9:16am 184 mg/dL<=200Albumin/Globulin RatioOct2024 9:16amOct2024 9:16am1.1Basophils (%) (Auto)July 08, 2025 9:16amOct2024 9:16am 1.4 %0.2-2.0HDL CholesterolOctober 2024 9:16amOct2024 9:16am36 mg/dLBelow low dqrdob54-63> or =60 mg/dl - LOW CARDIOVASCULAR RISK<40 mg/dl - HIGH CARDIOVASCULAR RISKAlbuminOct2024 9:16amOct2024 9:16am3.9 g/dL3.4-5.0Eosinophils # (Auto)July 08, 2025 9:16amOctober 2024 9:16am0.5 10 3/uL0.0-0.7LDL Cholesterol, CalculatedOct2024 9:16amOct2024 9:73bb482.0 mg/dL<100 mg/dl DFVZBZP401-360 mg/dl NEAR OR ABOVE SMCEBGC897-957 mg/dl BORDERLINE WVUC589-238 mg/dl HIGH>190 mg/dl VERY HIGHAlkaline PhosphataseOct2024 9:16amOct2024 9:16am82 U/L 46-116Eosinophils (%) (Auto)July 08, 2025 9:16amOct2024 9:16am 6.1 %0.9-7.0Triglycerides LevelOct2024 9:16amOct2024 9:82re595 mg/dL<=150Alanine Aminotransferase (ALT/SGPT)July 08, 2025 9:16am July 08, 2025 9:16am66 U/LAbove high xquozd61-51KxjsflftcnUyflfib 2024 9:16amOct2024 9:16am46.8 %42.0-54.0VLDL CholesterolOct2024 9:16amOct2024 9:16am28.8 mg/dLAspartate Amino Transf (AST/SGOT) July 08, 2025 9:16amOct2024 9:16am34 U/H58-41EvkbycrywhYwrcpqc 28th, 2025 9:16amOct2024 9:16am15.6 g/dL14.0-18.0BUN/Creatinine Ratio July 08, 2025 9:16amOct2024 9:16am11.1Immature Granulocyte # (Auto)July 08, 2025 9:16amOct2024 9:16am0.02 10 3/uL0.00-0.03 Blood Urea NitrogenOctober 2024 9:16amOct2024 9:16am16.0 mg/dL 7.0-18.0Immature Granulocyte % (Auto)July 08, 2025 9:16amOctober 2024 9:16am0.2 %0.0-0.5Calcium LevelOct2024 9:16amOct2024 9:16am9.8 mg/dL8.5-10.1Lymphocytes # (Auto)July 08, 2025 9:16amOct2024 9:16am3.6 10 3/uL1.2-3.8Chloride LevelOct2024 9:16am July 08, 2025 9:44jf994 mmol/O79-916Ebmrjdsndxd (%) (Auto)July 08, 2025 9:16amOct2024 9:16am44.6 %20.5-60.0Carbon Dioxide LevelOct2024 9:16amOct2024 9:16am27.1 mmol/L21.0-32.0Mean Corpuscular HemoglobinOct2024 9:16amOct2024 9:16am27.8 pg25.9-34.0 CreatinineOct2024 9:16amOct2024 9:16am1.44 mg/dLAbove high normal0.70-1.30Mean Corpuscular Hemoglobin ConcentOct2024 9:16am July 08, 2025 9:16am33.3 g/dL29.9-35.2Estimated GFR () July 08, 2025 9:16amOct2024 9:16am>60>=60 mL/min/1.73m 2Mean Corpuscular VolumeOct2024 9:16amOct2024 9:16am83.4 fL 80.0-94.0Estimated GFR (Non- AmericanOct2024 9:16amOctober 2024 9:90ka68Cdbzq low normal>=60 mL/min/1.73m 2Monocytes # (Auto)July 08, 2025 9:16amOctober 2024 9:16am0.7 10 3/uL0.3-0.8GlobulinOct2024 9:16amOct2024 9:16am3.6 g/dLMonocytes (%) (Auto)July 08, 2025 9:16amOctober 2024 9:16am8.3 %1.7-12.0Glucose LevelOct2024 9:16amOct2024 9:04wf027 mg/dA59-948Nosj Platelet Volume July 08, 2025 9:16amOct2024 9:16am9.9 fL9.5-13.5Potassium Level July 08, 2025 9:16amOct2024 9:16am3.8 mmol/L3.5-5.1Neutrophils # (Auto)July 08, 2025 9:16amOctober 2024 9:16am3.2 10 3/uL1.4-6.5 Sodium LevelOctuofl [facility] 2024 9:16amOct2024 9:55if420 mmol/A913-658 Neutrophils (%) (Auto)July 08, 2025 9:16amOctober 2024 9:16am39.4 % Below low hpbnqe35.0-75.0Total BilirubinOct2024 9:16amOctober 2024 9:16am0.5 mg/dL0.2-1.0Platelet CountOct2024 9:16amOct2024 9:09zw375 10 3/nB825-119Jsafl ProteinOct2024 9:16amOctober 2024 9:16am7.5 g/dL6.4-8.2Red Blood CountOct2024 9:16amOctober 2024 9:16am5.61 10 6/uL4.70-6.10Red Cell Distribution WidthOct2024 9:16amOct2024 9:16am14.2 %11.0-15.0Corrected White Blood CountOct2024 9:16amOctober 2024 9:16am8.0 10 3/uL4.0-11.0 Vital Signs Vital Reading Result Reference Range Collection Date/Time Height 67 [in_i] July 22, 2025 1:24wuSsormn177.26 kgNov2024 1:29pmHeart Rate74 /bbz61-532QyqxgxvoJuly 22, 2025 1:29pmBP Kgvokgpu247 mm[Hg]100-140July 22, 2025 1:29pmBP Laxurxxep81 mm[Hg]60-100July 22, 2025 1:29pmBMI (Body Mass Index)34.9 kg/u0Dhxnbvhh2024 1:29pm Advance Directives Advance Directive Response Recorded Date/ Time Advance Directives No December 25 024 2:00pm Insurance Providers Guarantor Manuel Burgos Address [address] [place] [id number] Info.Home Phone: Coverage Status Update:2024 Payer Group Member ID Coverage Type Subscriber Relationship to Subscriber Effective Date Expiration Date Myah ZIMMERMAN/KATHLEEN Id: [id number] Clinker Id: [id number] [address] Home Phone: Email: [email or web address] MARQUIS [id number] L Clinker Id: [id number] [address] [address] Home Phone: Email: [email or web address] Encounters Encounter Location(s) Arrival/Admit Date Discharge/Departure Date Discharge/Departure Disposition Provider(s) Non-patient / Non-visit -[facility] O ctober 2024 10:16am Manuel Cerrato-patient / [facility] OutPtOctober 2024 11:59pmLuna Crain Physician/Provider Office Visit-[facility]2024 1:25pmNov2024 1:46pm Discharged to home care or self care (routine discharge)Kell Jack MD Recent Diagnosis Onset Date Admit Date Class 1 obesity with body ma ss index (BMI) of 34.0 to 34.9 in adult Unknown July 22, 2025 1:25pm Assessments Diagnosis Onset Date Resolution Status Admit Date Class 1 obesity with body mass index (BM I) of 34.0 to 34.9 in adult acuteJuly 22, 2025 1:25pm
--- OUTSIDE RECORDS SUMMARY | 2025-07-31 15:39 | XMS_ITS | CCD ---
Author Organization [facility] Care Team Providers Care Chip Unloader Name Role Phone Efrain Bowling MD Primary Care Provider DR EFRAIN BOWLING Primary Care Unavailable KASSIE Isidro, DR LIZBETH Donald Attending Unavaila marilin Isidro, DR LIZBETH Donald Consulting Unavaila marilin Isidro, DR LIZBETH Donald Admitting Unavaila ble BOWLING, DR EFRAIN Monet Primary Care Unavailable FISHER ., DR CINTRON Attending Unavailable FISHER ., DR CINTRON Consulting Unavailable FISHER ., DR CINTRON Admitting Unavailable HOY ., DR CORRIGAN Attending Unavailable HOY ., DR CORRIGAN Consulting Unavailable HOY ., DR CORRIGAN Admitting Unavailable BOWLING, DR EFRAIN Monet Primary Care Unavailable BOWLING, DR EFRAIN Monet Primary Care Unavailable GRILLIS ., DR CONNIE Monet Admitting Unavaila ble PEÑA ., DR CONNIE Monet Attending Unavaila ble TAWNYA, DR EFRAIN Monet Primary Care Unavailable GRILLIAme ., DR CONNIE Monet Admitting Unavaila ble GRRONDA ., DR CONNIE Monet Attending Unavaila ble TAWNYA, DR EFRAIN Monet Primary Care Unavailable GRILLIAme ., DR CONNIE Monet Admitting Unavaila ble GRRONDA ., DR CONNIE Monet Attending Unavaila ble TAWNYA, DR EFRAIN Monet Primary Care Unavailable GRILLIS ., DR CONNIE Monet Attending Unavaila ble GRILLIAme ., DR CONNIE Monet Consulting Unavaila ble GRILLIAme ., DR CONNIE Monet Admitting Unavaila ble ZIEBIRMA, DR CHRISTOFER Hernandez Consulting Unavailable TAWNYA, DR EFRAIN Monet Primary Care Unavailable FISHER ., DR CINTRON Attending Unavailable FISHER ., DR CINTRON Consulting Unavailable FISHER ., DR CINTRON Admitting Unavailable TAWNYA, DR EFRAIN Monet Admitting Unavailable BOWLING, DR EFRAIN Monet Attending Unavailable BOWLING, DR EFRAIN Monet Consulting Unavailable TAWNYA, DR EFRAIN Monet Primary Care Unavailable Efrain Bowling Unavailable Efrain Bowling Primary Care Unavailable Margaux Estrada Attending Unavailable Margaux Estrada Admitting Unavailable MINA VILLAGOMEZ Attending Unavailable ANIKA FRAZIER Attending Unavailable Efrain Bowling MD Primary Care Provider [phone] Gurinder FERMIN, Luis Stallings Attending Unavailable Gurinder FERMIN, Luis Stallings Attending Unavailable Gurinder FERMIN, Luis Stallings Attending Unavailable Chata Page Attending Unavailable Chata Page Attending Unavailable Efrain Bowling MD Primary Care Provider [phone] Christian Pablo DO Attending Provider [phone] Mina Villagomez DO Attending Provider [phone] Efrain Bowling MD Attending Provider Allergies Allergy ClassificationReported Allergen(s)Allergy TypeDate of OnsetReaction(s) Facility (2 sources)patient allergy list reviewed by nurse or physiciaPropensity to adverse [id number]:EXFO Other (2 sources)Allergies ReconciledPropensity to adverse reactionsWashington County Memorial HospitalVulevú Other Medications Current Medications MedicationDrug Class(es)DatesSig (Normalized)Sig (Original)Amoxicillin (1 source)Penicillin-class AntibacterialAmoxicillin Activeatenolol 50 mg / chlorthalidone 25 mg oral tablet (20 sources)Thiazide-like Diuretic, beta-Adrenergic BlockerStart: 97-99-6701jvci 1 tablet by mouth once dailyAtenolol-Chlorthalidone 50-25 mg tablet Active 0 .ROUTE .COMPLEX May 15, 2024 12:22pm TAKE 1 TABLET BY MOUTH EVERY DAY Start: 33-90-3137zkwz 1 tablet by mouth once dailyatenolol-chlorthalidone (Tenoretic) 50-25 MG tablet Take 1 tablet by mouth Daily 02/15/2024 ActiveStart: 11-20-2023 End: 95-11-3203wfxx 1 tablet by mouth once dailyAtenolol-Chlorthalidone 50-25 mg tablet Active 0 .ROUTE .COMPLEX 90 May 01, 2025 12:51pm TAKE 1 TABLET BY MOUTH EVERY DAY Complies with drug therapyStart: 11-20-2023 End: 93-47-9209kfyd 1 tablet by mouth once dailyAtenolol-Chlorthalidone 50-25 mg tablet Discontinued 0 .ROUTE .COMPLEX 90 November 20, 2023 12:09pm May 15, 2024 12:23pm TAKE 1 TABLET BY MOUTH EVERY DAYStart: 39-27-4627otxx 1 tablet by mouth once dailyAtenolol-Chlorthalidone Active 0 .ROUTE .COMPLEX 90 November 20, 2023 1:09pm TAKE 1 TABLET BY MOUTH EVERY DAYStart: 11-20-2023 End: 12-86-7570qyhf 1 tablet by mouth once dailyAtenolol-Chlorthalidone 50-25 mg tablet Discontinued 1 TAB PO Daily November 19, 2023 11:00pm November 20, 2023 12:09pmStart: 40-00-4485bfch 1 tablet by mouth once dailyAtenolol-Chlorthalidone 50-25mg atenoloL-chlorthalidone 50-25mg, 1 (one) Tablet daily # 90, 08/22/2022, Ref. x1. Active oral daily for 90 *Pick strength-form from [employer] (Chapter 11) for eRX* Aug, ActiveStart: 87-43-9338hohwgpxr-chlorthalidone 50-25 MG tabletB Complex-C (b complex-vitamin c) tablet (3 sources)take 1 tablet by mouth in the morningB Complex-C (b complex-vitamin c) tablet Take 1 tablet by mouth in the morning. Activecyclobenzaprine hydrochloride 10 mg oral tablet (7 sources)Muscle RelaxantStart: 01-78-3058dpxf 1 tablet by mouth three times daily as neededcyclobenzaprine 10mg cyclobenzaprine 10mg, 1 (one) Tablet three times daily, as needed # 30, 05/31/2022, No Refill. Active oral three times daily, as needed for 0 *Reorder from [employer] (Chapter 11) for eRx and Interaction Alerts* May, ActiveStart: 02-10-2021 End: 72-83-0256qwyq 1 tablet by mouth at bedtime as needed for muscle spasms cyclobenzaprine 10 MG tablet Indications: Chronic pain syndrome , Myofascial pain Take 1 tablet by mouth at bedtime as needed for Muscle spasms. 30 tablet 2 04/16/2021 05/16/2021 ActivecycloSPORINE 0.5 mg/ml ophthalmic suspension (3 sources)Calcineurin Inhibitor ImmunosuppressantStart: 18-88-0677wsrr 1 drop(s) into the eye(s) in the morningRestasis 0.05 % ophthalmic emulsion Administer 1 drop into both eyes in the morning and 1 drop before bedtime. 01/11/2024 Activediclofenac sodium 75 mg delayed release oral tablet (20 sources)Nonsteroidal Anti-inflammatory DrugStart: 12-25-2023 End: 06-02-7628ucin 1 tablet by mouth twice dailyDiclofenac Sodium 75 mg tablet,delayed release (DR/EC) Active 0 .ROUTE .COMPLEX 60 July 1:41pm TAKE 1 TABLET BY MOUTH TWICE A DAY Complies with drug therapyStart: 02-05-2021 End: 70-70-2745mlyg 1 tablet by mouth twice dailyDiclofenac Sodium 75 mg tablet,delayed release (DR/EC) Discontinued 75 MG PO Twice daily December 24, 2023 11:00pm December 25, 2023 11:59amdocosahexaenoic acid 120 mg / eicosapentaenoic acid 180 mg oral capsule (3 sources)omega-3 1000 MG capsule capsule Take by mouth Lrajxs92 ml methocarbamol 100 mg/ml injection (7 sources)Muscle RelaxantStart: 31-24-5990dkburv 1 g by intramuscular injection every eight hoursMethocarbamol (Robaxin) 100 mg/mL solution Active 1 GM IM Every 8 hours September 16, 2024 12:00am Complies with drug therapyStart: 02-13-2024 take 1 tablet by mouth in the morning, then take 1 tablet by mouth in the evening, then take 1 tablet by mouth at bedtimemethocarbamol (Robaxin) 750 MG tablet Take 750 mg by mouth in the morning and 750 mg in the eveningand 750 mg before bedtime. 02/13/2024 ActiveRobaxin ActiveMultiple Vitamins-Minerals (PRESERVISION AREDS PO) (5 sources)Multiple Vitamins-Minerals (PRESERVISION AREDS PO) Take by mouth 2 times daily. 0 Activephentermine hydrochloride 37.5 mg oral tablet (6 sources)Sympathomimetic Amine AnorecticStart: 42-48-4836Hqdoazmiepw (Adipex- P) 37.5 mg tablet Active 37.5 MG PO Daily 30 July 22, 2025 12:00am Cl ass 1 obesity with body mass index (BMI) of 34.0 to 34.9 in adult Obesity, class 1 Body mass index [BMI] 34.0-34.9, adult must administer 30 minutes before or 1- 2 hours after breakfast Complies with drug therapyStart: 09-16-2024 End: 35-28-3991wmkr 1 tablet by mouth once daily before breakfastPhentermine 37.5 mg tablet Discontinued 37.5 MG PO Daily September 16, 2024 12:00am September 16, 2024 3:23pm FreeTextSi tablet before breakfast Orally Once a day; Note: Source Status: Refill; Refills: 0; Qty: 30 Tablet; Provider: Tawnya Monet Start: 24-15-7325uyjx 1 tablet by mouth once daily before breakfastAdipex-P 37.5 MG 1 tablet before breakfast Orally Once a day for 30 days Aug, Active Start: 20-57-6242xowo 1 tablet by mouth once daily before breakfastAdipex-P 37.5 MG 1 tablet before breakfast Orally Once a day for 30 days Jul, Active tadalafil 20 mg oral tablet (5 sources)Phosphodiesterase 5 InhibitorStart: 50-49-5410bier 1 tablet by mouth once as neededTadalafil 20 mg tablet Active 20 MG PO Once September 16, 2024 12:00am FreeTextSi tablet prn; Note: Source Status: Taking; Provider: Tawnya Castorena ( ) Complies with drug therapyCialis 20 MG 1 tablet prn Fwgvia9693 mg testosterone 0.0162 mg/mg topical gel (11 sources)AndrogenStart: 22-56-8179Jmsefqlltdcm (Androgel) 1.62 % (20.25 mg/1.25 gram) gel in packet Active 1 PACKET TRANSDERML Daily September 16, 2024 12:00am apply to max area of ONE upper arem and shoulder Complies with drug therapyStart: 99-44-7436Quswzfpprxup 20.25 MG/ACT (1.62%) gel APPLY 2 PUMPS TO CLEAN, DRY, INTACT SKIN EVERY MORNING 01/30/2024 ActiveStart: 21-06-4397NreyqWps 1.62 % (20.25mg/1.25 gr AndroGeL 1.62 % (20.25mg/1.25 gr, 2 pumps daily , 05/31/2022, No Refill. Active transdermal for 0 *Reorder from [employer] for eRx and Interaction Alerts* May, ActiveStart: 58-85-9661Owqgfosfxxnr 20.25 MG/ACT (1.62%) Gel gel APPLY 1 PUMP TOPICALLY EACH MORNING 0 01/09/2021 Active Testosterone (Androgel) 1.62 % (20.25 mg/1.25 gram) gel in packet (2 sources)Start: 88-62-3980Sutrygicxebu (Androgel) 1.62 % (20.25 mg/1.25 gram) gel in packet Active 1 PACKET TRANSDERML Daily September 16, 2024 12:00am apply to max area of ONE upper arem and shoulderzonisamide 100 mg oral capsule (3 sources)Anti-epileptic AgentStart: 43-71-0244msys 1 capsule by mouth once dailyZonisamide 100 mg capsule Active 100 MG PO Daily September 16, 2024 12:00am Complies with drug therapy Completed/Discontinued Medications MedicationDrug Class(es)DatesSig (Normalized)Sig (Original)benzonatate 200 mg oral capsule (2 sources)Non-narcotic AntitussiveStart: 10-16-2024 End: 90-24-3052zpqm 1 capsule by mouth three times daily as needed for cough Benzonatate 200 mg capsule Discontinued 200 MG PO Three times daily as needed for cough 30 10 0 October 16, 2024 12:00am July 22, 2025 1:32pm Influenza due to influenza virus, type A, humandoxepin hydrochloride 10 mg oral capsule (6 sources)Tricyclic AntidepressantStart: 09-16-2024 End: 40-11-2070vvat 2 capsules by mouth once dailyDoxepin 10 mg capsule Discontinued 20 MG PO Daily September 16, 2024 12:00am July 22, 2025 1:33pm Start: 40-90-7887gfpz 1 capsule by mouth once daily at bedtimedoxepin (SINEquan) 10 MG capsule Indications: JOSÉ (obstructive sleep apnea) , Hypersomnia , PLMD (periodic limb movement disorder) TAKE 1 TO 2 CAPSULES BY MOUTH EVERY DAY AT BEDTIME 180 capsule 1 03/18/2024 ActiveDULoxetine 30 mg delayed release oral capsule (20 sources)Serotonin and Norepinephrine Reuptake InhibitorStart: 12-20-2023 End: 22-20-7911jefa 1 capsule by mouth once dailyDuloxetine 30 mg capsule,delayed release(DR/EC) Discontinued 0 .ROUTE .COMPLEX 90 0 December 04, 2024 9:23am July 22, 2025 1:41pm TAKE 1 CAPSULE BY MOUTH EVERY DAYStart: 12-20-2023 End: 56-74-1835ozam 1 capsule by mouth once dailyDuloxetine 30 mg capsule,delayed release(DR/EC) Discontinued 30 MG PO Daily December 19, 2023 11:00pmApril 2023 8:30amStart: 02-18-2021 End: 24-12-8539brrf 1 capsule by mouth once dailyDULoxetine (Cymbalta) [address] Particles capsule DR Indications: Lumbar radiculopathy , Spinal stenosis of cervical region , Chronic pain syndrome Take 1 capsule by mouth daily. 30 capsule 1 02/18/2021 03/17/2021 Discontinued (Reorder)Start: 02-11-2021 End: 98-26-6165itai 1 capsule by mouth once dailyDULoxetine [address] Particles capsule DR Indications: Lumbar radiculopathy , Spinal stenosis of cervical region , Chronic pain syndrome Take 1 capsule by mouth daily. 30 capsule 2 03/17/2021 Wuftdv01 ml lidocaine hydrochloride 20 mg/ml injection (2 sources)Antiarrhythmic, Amide Local AnestheticStart: 04-16-2021 End: 31-99-9258yssntomkn 2 % injection 100 mgStart: 04-16-2021 End: 31-80-7931zzkovrwlx 2 % injection 100 mglidocaine 1% (PF) (XYLOCAINE MPF) 10 mL syringe (2 sources)Start: 02-16-2021 End: 16-82-8755jfvahjrzu 1% (PF) (XYLOCAINE MPF) 10 mL syringeoseltamivir 75 mg oral capsule (2 sources)Neuraminidase InhibitorStart: 10-16-2024 End: 41-64-8539anxa 1 capsule by mouth twice dailyOseltamivir (Tamiflu) 75 mg capsule Discontinued 75 MG PO Twice daily 10 5 0 October 16, 2024 12:00am July 22, 2025 1:33pm Influenza due to influenza virus, type A, human tiZANidine 4 mg oral tablet (3 sources)Central alpha-2 Adrenergic AgonistStart: 09-16-2024 End: 90-95-6291wpsu 1 tablet by mouth once daily at bedtime as neededTizanidine 4 mg tablet Discontinued 4 MG PO Daily at bedtime as needed September 16, 2024 12:00am July 22, 2025 1:34pm Problems Active Problems Problem ClassificationProblemDateDocumented DateEpisodic/ChronicDeficiency and other anemia (4 sources)Anemia; Translations: [Anemia, unspecified]54-39-9909Nuaxyxhk Deficiency and other anemia (4 sources)Iron deficiency anemia; Translations: [Iron deficiency anemia, unspecified]40-29-7718IhugtxafWlxumvutd of lipid metabolism (2 sources)Mixed hyperlipidemia; Translations: [Mixed hyperlipidemia]Chronic Essential hypertension (4 sources)Essential hypertension; Translations: [Essential (primary) hypertension]Onset: 759066-36-1883NbwulxiZekctaues (3 sources)Influenza due to Influenza A virus; Translations: [Influenza due to other identified influenza virus with other respiratory manifestations] 26-30-2580EhsvtnqgIrjtc endocrine disorders (4 sources)Testicular hypofunction; Translations: [TESTICULAR HYPOFUNCTION] Onset: 87-97-2265IhddxuqJwpho nervous system disorders (3 sources)Chronic pain syndrome; Translations: [Chronic pain syndrome]Chronic Other nervous system disorders (2 sources)Chronic pain; Translations: [Other chronic pain]ChronicOther nervous system disorders (1 source)Other chronic painChronicOther nutritional; endocrine; and metabolic disorders (2 sources)Obese class I; Translations: [Obesity, unspecified]Onset: 03-17-2021 30-87-8446GpchcvdNqydr nutritional; endocrine; and metabolic disorders (3 sources)Body [...] (1 source)Body mass index (BMI) 33.0-33.9, adultChronicOther nutritional; endocrine; and metabolic disorders (2 sources)Obesity; Translations: [Class 1 obesity with body mass index (BMI) of 34.0 to 34.9 in adult]88-70-8391TgmbzfaJlnmw screening for suspected conditions (not mental disorders or infectious disease) (8 sources)Encounter for screening for malignant neoplasm of prostate; Translations: [Blood chemistry abnormal]Onset: 767437-92-6142Erhsomuw Residual codes; unclassified (6 sources)Obstructive sleep apnea syndrome; Translations: [Obstructive sleep apnea (adult) (pediatric)]Onset: 229531-32-4350VyqasbxVwprzpkl codes; unclassified (1 source)Obstructive sleep apnea (adult) (pediatric)ChronicResidual codes; unclassified (4 sources)Periodic limb movement disorder; Translations: [Periodic limb movement disorder]Onset: 695340-38-0605SvetnafWlcncqnu codes; unclassified (4 sources)Hypersomnia; Translations: [Hypersomnia, unspecified]Onset: 585971-99-8020XrmqrzfLghnnerb codes; unclassified (1 source)Drug compliance good; Translations: [...] sources)Right upper quadrant pain; Translations: [Epigastric pain]Onset: 32-44-5466VwtddgmnPcqfc connective tissue disease (4 sources)Myofascial pain; Translations: [Myalgia, other site]EpisodicOther lower respiratory disease (4 sources)Snoring; Translations: [Snoring]Onset: 155537-10-9317Nnpbbiuv Unclassified (1 source)Low back pain, unspecified M54.50 Results Test NameValueInterpretationReference RangeFacilityBasophils Auto (Bld) [#/Vol] Ordered By: Christian Pablo on 15-30-1863Djgvbavjk (Bld) [#/Vol]0.1 10 3/uL0.0-0.1 [facility] CenterBasophils/100 WBC Auto (Bld)Ordered By: Christian Pablo on 63-95-9649Kjnrvbsgo/100 WBC (Bld)1.4 %0.2-2.0[facility] CenterCholesterol in LDL Calc [Mass/Vol]Ordered By: Efrain Bowling on 07-08-2025 Cholesterol in LDL [Mass/Vol]120.0 mg/dLWright-Patterson Medical CenterComment on above:<100 mg/dl QVUYNCJ311-682 mg/dl NEAR OR ABOVE UKUXGFA531-909 mg/dl BORDERLINE SKZC274-068 mg/dl HIGH>190 mg/dl VERY HIGHCholesterol in VLDL Calc [Mass/Vol]Ordered By: Efrain Bowling on 27-17-7870Ztalmenvxrf in VLDL [Mass/Vol] 28.8 mg/dLWright-Patterson Medical CenterEosinophils/100 WBC Auto (Bld)Ordered By: Christian Pablo on 55-61-5473Auldhieniro/100 WBC (Bld)6.1 %0.9-7.0[facility] CenterErythrocyte distribution width Auto (RBC) [Ratio]Ordered By: Christian Pablo on 62-75-8544Edmxsjkdfhl distribution width (RBC) [Ratio]14.2 % 11.0-15.0[facility] CenterGlobulin Calc (S) [Mass/Vol]Ordered By: Christian Pablo on 98-27-6250Hpyjqqki (S) [Mass/Vol]3.6 g/dLWright-Patterson Medical CenterGlomerular filtration rate (GFR) estimation in non- AmericanOrdered By: Christian Pablo on 05-40-1629XLZ/1.73 sq M.predicted among non- blacks MDRD (S/P/Bld) [Vol rate/Area]51 mL/min/{1.73_m2}Low>=60 mL/min/1.73m 2 [facility] CenterHematocrit Auto (Bld) [Volume fraction]Ordered By: Christian Pablo on 88-97-2005Goswuqlfit (Bld) [Volume fraction]46.8 %42.0-54.0 [facility] CenterHemoglobin [Mass/volume] in BloodOrdered By: Christian Pablo on 70-06-0799Jfhsxucopm (Bld) [Mass/Vol]15.6 g/dL14.0-18.0[facility] CenterLaboratory - Chemistry and Chemistry - challengeOrdered By: Christian Pablo on 92-79-7357Zmejyyt [Mass/Vol]3.9 g/dL3.4-5.0[facility] CenterALP [Catalytic activity/Vol]82 U/G33-960DswmuvlqmWright-Patterson Medical CenterALT [Catalytic activity/Vol]66 U/PVwij94-48PstppagyfWright-Patterson Medical CenterAST [Catalytic activity/Vol]34 U/H31-64PvftrjadoW[facility] Center Bilirubin [Mass/Vol]0.5 mg/dL0.2-1.0[facility] CenterCalcium [Mass/Vol]9.8 mg/dL8.5-10.1FLakeHealth Beachwood Medical CenterChloride [Moles/Vol] 102 mmol/F76-546FsxutmhlfWright-Patterson Medical CenterCO2 [Moles/Vol]27.1 mmol/L 21.0-32.0[facility] CenterCreatinine [Mass/Vol]1.44 mg/dLHigh 0.70-1.30[facility] CenterGFR/1.73 sq M.predicted MDRD (S/P/Bld) [Vol rate/Area]mL/min/{1.73_m2}>=60 mL/min/1.73m 2FLakeHealth Beachwood Medical CenterGlucose [Mass/Vol]100 mg/tG56-391TxgcerhnkWright-Patterson Medical Center Potassium [Moles/Vol]3.8 mmol/L3.5-5.1FLakeHealth Beachwood Medical CenterProtein [Mass/Vol]7.5 g/dL6.4-8.2FOhioHealth Riverside Methodist Hospitalodium [Moles/Vol]139 mmol/C639-700AbzllrbckWright-Patterson Medical CenterUrea nitrogen [Mass/Vol]16.0 mg/dL 7.0-18.0[facility] CenterUrea nitrogen/Creatinine [Mass ratio] 11.1 mg/mgWright-Patterson Medical CenterLaboratory - Chemistry and Chemistry - challengeOrdered By: Efrain Bowling on 97-54-5933Ebhoanovxbp [Mass/Vol]184 mg/dL <=200W[facility] CenterCholesterol in HDL [Mass/Vol]36 mg/dLLow 40-60[facility] CenterComment on above:> or =60 mg/dl - LOW CARDIOVASCULAR RISK<40 mg/dl - HIGH CARDIOVASCULAR RISKTriglyceride [Mass/Vol] 144 mg/dL<=150W[facility] CenterLaboratory - Hematology and Cell countsOrdered By: Christian Pablo on 88-35-2024Jnmsgubt granulocytes/100 WBC (Bld)0.2 %0.0-0.5FLakeHealth Beachwood Medical CenterLeukocytes [#/volume] corrected for nucleated erythrocytes in Blood by Automated counOrdered By: Christian Pablo on 94-60-6873QEY corrected for nucl RBC Auto (Bld) [#/Vol]8.0 10 3/uL4.0-11.0 [facility] CenterLymphocytes Auto (Bld) [#/Vol]Ordered By: Christian Pablo on 34-78-0862Rjvlluenrot (Bld) [#/Vol]3.6 10 3/uL1.2-3.8[facility] Medical CenterLymphocytes/100 WBC Auto (Bld)Ordered By: Christian Pablo on 49-51-5513Ehiiusqqist/100 WBC (Bld)44.6 %20.5-60.0[facility] Auto (RBC) [Entitic mass]Ordered By: Christian Pablo on 20-61-1395NGN (RBC) [Entitic mass]27.8 pg25.9-34.0[facility] HospitalHC Auto (RBC) [Mass/Vol]Ordered By: Christian Pablo on 23-57-8428FZDM (RBC) [Mass/Vol]33.3 g/dL 29.9-35.2FLakeHealth Beachwood Medical CenterMCV Auto (RBC) [Entitic vol]Ordered By: Christian Pablo on 69-64-2640OJR (RBC) [Entitic vol]83.4 fL80.0-94.0[facility] CenterMonocytes Auto (Bld) [#/Vol]Ordered By: Christian Pablo on 64-86-9501Mhuzwvfir (Bld) [#/Vol]0.7 10 3/uL0.3-0.8[facility] CenterMonocytes/100 WBC Auto (Bld)Ordered By: Christian Pablo on 07-08-2025 Monocytes/100 WBC (Bld)8.3 %1.7-12.0[facility] Medical CenterNeutrophils Auto (Bld) [#/Vol]Ordered By: Christian Pablo on 90-81-2020Coydkvfghoc (Bld) [#/Vol] 3.2 10 3/uL1.4-6.5FLakeHealth Beachwood Medical CenterNeutrophils/100 WBC Auto (Bld)Ordered By: Christian Pablo on 73-75-8834Jzptbbzxbmd/100 WBC (Bld)39.4 %Low 43.0-75.0[facility] CenterNo Panel InformationOrdered By: Christian Pablo on 54-28-6173Nzuvvjwolyy # (Auto)0.5 10 3/uL0.0-0.7FLakeHealth Beachwood Medical CenterImmature Granulocyte # (Auto)0.02 10 3/uL0.00-0.03[facility] CenterProstate Specific Antigen Screen1.21 ng/mL<=4.00[facility] CenterNo Panel InformationOrdered By: Chata Page on 07-08-2025 Testosterone Ludgz878 ng/pT987-131LqbncfuzbWright-Patterson Medical CenterComment on above:Adult male reference interval is based on a population ofhealthy nonobese males (BMI <30) between 19 and 39 yearsold. bouchra Quinones.al. JCEM 2017,102;1161- 1173. PMID:[id number].Performed at: [address] [id number] Director: Checo Pitts PhD, Phone: [phone] mean volume Auto (Bld) [Entitic vol]Ordered By: Christian Pablo on 51-78-3089Zgpgvxly mean volume (Bld) [Entitic vol]9.9 fL9.5-13.5FLakeHealth Beachwood Medical Center Platelets Auto (Bld) [#/Vol]Ordered By: Christian Pablo on 32-02-9518Atgievorh (Bld) [#/Vol]312 10 3/kW917-539VwguniaygWright-Patterson Medical CenterRBC Auto (Bld) [#/Vol] Ordered By: Christian Pablo on 33-71-9182NLZ (Bld) [#/Vol]5.61 10 6/uL4.70-6.10 [facility] Hospitalerum or plasma albumin/globulin mass ratio Ordered By: Christian Pablo on 79-33-5704Jtfpgse/Globulin [Mass ratio]1.1 {ratio} [facility] Hospitalerum or plasma anion gap determinationOrdered By: Christian Pablo on 20-51-2213Nbofz gap [Moles/Vol]13.7 mmol/LFOhioHealth Riverside Methodist Hospitalerum or plasma total cholesterol/high density lipoprotein (HDL) cholesterol mass ratOrdered By: Efrain Bowling on 07-08-2025 Cholesterol.total/Cholesterol in HDL [Mass ratio]5.1 {ratio}[facility] CenterComment on above:3.3 - 4.4 LOW RISK4.4 - 7.1 AVERAGE RISK7.1 - 11.0 MODERATE RISK>11.0 HIGH RISKNo Panel InformationOrdered By: Geovanna Clarke on 94-64-5213Tsgnu Strep (POC)[facility] Urology Office/Clinic Noteon 18-78-0112Tvvwwgs Office/Clinic NoteUrology Office/Clinic Note Chief Complaint Patient in office for f/u with blood work HPI Staff Manuel is a 54 yo male pt here today for a 1 yr f/u w/Testosterone Levels. Previous DX: male hypogonadism, BPH, impotence *Cialis 10mg PRN, Androgel 2 pumps qd. Patient had BW done at [facility] on 07/29/24 and 07/30/24. PSA was [...] 324 07/19/21 - 754 07/20/23 - 366 [phone] 07/29/24 - 464 07/30/24 - Hgb 16.5 [...] prior, remains low. Pt states that [facility] labs have dropped, has not noticed [...] acel/tetanus adult 02/08/2013 Gi (more content not included)...[facility] CenterComment on above:Result Comment: Electronically Signed By: Camilo FERMIN, Chata Pope.br\Date and Time Signed: 07/31/24 08:33ESTBasophils Auto (Bld) [#/Vol]on 28-13-0055Dvehlhgjy (Bld) [#/Vol] Automated basophil count0.0-0.1FLakeHealth Beachwood Medical CenterBasophils/100 WBC Auto (Bld)on 88-85-2574Miurhlsqw/100 WBC (Bld)Automated basophil %0.2-2.0 [facility] CenterCholesterol in LDL Calc [Mass/Vol]on 07-30-2024 Cholesterol in LDL [Mass/Vol]Cholesterol in LDL [Mass/volume] in Serum or Plasma by calculationWright-Patterson Medical CenterComment on above:<100 mg/dl ETUECHM180-262 mg/dl NEAR OR ABOVE CWTCEBU681-198 mg/dl BORDERLINE TPOC855-100 mg/dl HIGH>190 mg/dl VERY HIGHCholesterol in VLDL Calc [Mass/Vol]on 07-30-2024 Cholesterol in VLDL [Mass/Vol]Cholesterol in VLDL [Mass/volume] in Serum or Plasma by calculationWright-Patterson Medical CenterEosinophils/100 WBC Auto (Bld)on 54-49-1215Fnnxjnnxjmv/100 WBC (Bld)Automated eosinophil %Low0.9-7.0 [facility] CenterErythrocyte distribution width Auto (RBC) [Ratio]on 29-77-5018Wsigqejrwqn distribution width (RBC) [Ratio]Erythrocyte distribution width [Ratio] by Automated count11.0-15.0[facility] Medical CenterEstimated glomerular filtration rate (GFR) non- Americanon 36-95-9524NPU/1.73 sq M.predicted among non-blacks MDRD (S/P/Bld) [Vol rate/Area]Estimated glomerular filtration rate (GFR) non- AmericanLow>=60 mL/min/1.73m 2FLakeHealth Beachwood Medical CenterGlobulin Calc (S) [Mass/Vol]on 02-59-9901Hxgyunxq (S) [Mass/Vol]Serum globulin measurement by calculation (mass/volume)[facility] Medical CenterGlucose mean value [Mass/volume] in Blood Estimated from glycated hemoglobinon 09-72-7965Synqxkx glucose Estimated from glycated hemoglobin (Bld) [Mass/Vol]Glucose mean value [Mass/volume] in Blood Estimated from glycated hemoglobinWright-Patterson Medical CenterHematocrit Auto (Bld) [Volume fraction]on 70-97-4283Qmzvvvscub (Bld) [Volume fraction]Hematocrit [Volume Fraction] of Blood by Automated count 42.0-54.0[facility] Medical CenterHemoglobin [Mass/volume] in Bloodon 35-18-3659Njmiusfmog (Bld) [Mass/Vol]Hemoglobin [Mass/volume] in Blood14.0-18.0 [facility] CenterLaboratory - Chemistry and Chemistry - challengeon 84-97-5899Rmquhxk [Mass/Vol]3.5 g/dL3.4-5.0[facility] CenterALP [Catalytic activity/Vol]76 U/W34-471HwvwfnjppWright-Patterson Medical CenterALT [Catalytic activity/Vol]69 U/DKoye52-43CbdonslbwWright-Patterson Medical CenterAST [Catalytic activity/Vol]22 U/C25-61WoomwcgbbWright-Patterson Medical Center Bilirubin [Mass/Vol]1.1 mg/dLHigh0.2-1.0[facility] CenterCalcium [Mass/Vol]9.3 mg/dL8.5-10.1FLakeHealth Beachwood Medical CenterChloride [Moles/Vol]99 mmol/Z67-802JvcrngzsjWright-Patterson Medical CenterCholesterol [Mass/Vol]171 mg/dL<=200[facility] CenterCholesterol in HDL [Mass/Vol]56 mg/fG48-08DlkjkpcizWright-Patterson Medical CenterComment on above:> or =60 mg/dl - LOW CARDIOVASCULAR RISK<40 mg/dl - HIGH CARDIOVASCULAR RISKCO2 [Moles/Vol]28.8 mmol/L21.0-32.0[facility] CenterCreatinine [Mass/Vol]1.50 mg/dLHigh0.70-1.30[facility] CenterGFR/1.73 sq M.predicted MDRD (S/P/Bld) [Vol rate/Area]59 mL/min/{1.73_m2}Low>=60 mL/min/1.73m 2FLakeHealth Beachwood Medical CenterGlucose [Mass/Vol]96 mg/cD60-362 [facility] CenterPotassium [Moles/Vol]3.4 mmol/LLow3.5-5.1 [facility] CenterProtein [Mass/Vol]7.3 g/dL6.4-8.2FOhioHealth Riverside Methodist Hospitalodium [Moles/Vol]137 mmol/U827-675FfwtpoatrWright-Patterson Medical CenterTriglyceride [Mass/Vol]68 mg/dL<=150[facility] CenterTSH Qn2.119 m[IU]/L0.358-3.740[facility] CenterUrea nitrogen [Mass/Vol]27.0 mg/dLHigh7.0-18.0[facility] CenterUrea nitrogen/Creatinine [Mass ratio]18.0 mg/mgWright-Patterson Medical Center Laboratory - Hematology and Cell countson 75-93-5840TsE8l (Bld) [Mass fraction] 5.6 %4.5-6.2FLakeHealth Beachwood Medical CenterComment on above:ADA RECOMMENDED LIMIT 4.0 - 6.0ADA THERAPEUTIC TARGET < 7.0ACTION SUGGESTED> 7.0Immature granulocytes/100 WBC (Bld)0.6 %High0.0-0.5FLakeHealth Beachwood Medical Center Leukocytes [#/volume] corrected for nucleated erythrocytes in Blood by Automated counon 69-93-1116RML corrected for nucl RBC Auto (Bld) [#/Vol]Leukocytes [#/volume] corrected for nucleated erythrocytes in Blood by Automated counHigh 4.0-11.0[facility] CenterLymphocytes Auto (Bld) [#/Vol]on 72-52-7248Kuvaicofbqq (Bld) [#/Vol]Lymphocytes [#/volume] in Blood by Automated countHigh1.2-3.8[facility] CenterLymphocytes/100 WBC Auto (Bld) on 34-52-6502Qyhjiyxniqj/100 WBC (Bld)Lymphocytes/100 leukocytes in Blood by Automated count20.5-60.0[facility] HospitalH Auto (RBC) [Entitic mass]on 17-31-3778JRX (RBC) [Entitic mass]MCH [Entitic mass] by Automated count 25.9-34.0[facility] CenterMCHC Auto (RBC) [Mass/Vol]on 46-56-0801HYRG (RBC) [Mass/Vol]MCHC [Mass/volume] by Automated count29.9-35.2 [facility] CenterMCV Auto (RBC) [Entitic vol]on 75-63-0395HQU (RBC) [Entitic vol]MCV [Entitic volume] by Automated count80.0-94.0[facility] CenterMonocytes Auto (Bld) [#/Vol]on 46-59-7368Wmtprcnpm (Bld) [#/Vol]Automated blood monocyte countHigh0.3-0.8[facility] CenterMonocytes/100 WBC Auto (Bld)on 31-24-6227Lhvckivyw/100 WBC (Bld)Automated monocyte %1.7-12.0[facility] CenterNeutrophils Auto (Bld) [#/Vol]on 39-15-1597Ybtsjyubrqp (Bld) [#/Vol]Neutrophils [#/volume] in Blood by Automated countHigh1.4-6.5FLakeHealth Beachwood Medical CenterNeutrophils/100 WBC Auto (Bld)on 41-24-3242Cupnvwriziv/100 WBC (Bld)Automated neutrophil %43.0-75.0 [facility] CenterNo Panel Informationon 19-68-4940Abcxyfjnyle # (Auto)0.1 10 3/uL0.0-0.7FLakeHealth Beachwood Medical CenterImmature Granulocyte # (Auto)0.09 10 3/uLHigh0.00-0.03[facility] CenterProstate Specific Antigen Screen0.65 ng/mL<=4.00[facility] CenterPlatelet mean volume Auto (Bld) [Entitic vol]on 74-71-6764Thozfvzs mean volume (Bld) [Entitic vol]Platelet mean volume [Entitic volume] in Blood by Automated count Low9.5-13.5FLakeHealth Beachwood Medical CenterPlatelets Auto (Bld) [#/Vol]on 54-28-6753Rqnteugkv (Bld) [#/Vol]Platelets [#/volume] in Blood by Automated -162WomggecxpWright-Patterson Medical CenterRBC Auto (Bld) [#/Vol]on 07-30-2024 RBC (Bld) [#/Vol]Erythrocytes [#/volume] in Blood by Automated count4.70-6.10 [facility] Hospitalerum or plasma albumin/globulin mass ratioon 59-71-9274Eimwlpi/Globulin [Mass ratio]Serum or plasma albumin/globulin mass ratioOur Lady of Mercy Hospitalerum or plasma anion gap determinationon 03-81-3735Voddf gap [Moles/Vol]Serum or plasma anion gap determinationOur Lady of Mercy Hospitalerum or plasma total cholesterol/high density lipoprotein (HDL) cholesterol mass spencer 47-18-7615Jgfwewljiit.total/Cholesterol in HDL [Mass ratio]Serum or plasma total cholesterol/high density lipoprotein (HDL) cholesterol mass ratWright-Patterson Medical CenterComment on above:3.3 - 4.4 LOW RISK4.4 - 7.1 AVERAGE RISK7.1 - 11.0 MODERATE RISK>11.0 HIGH RISK Hematocrit Auto (Bld) [Volume fraction]on 65-27-9539Xaxwqhrqxk (Bld) [Volume fraction]Hematocrit [Volume Fraction] of Blood by Automated count42.0-54.0 [facility] CenterNo Panel Informationon 34-80-7973Nivrimfqmaij Irwdu900 ng/kR840-208UywgtfocbWright-Patterson Medical CenterComment on above:Adult male reference interval is based on a population ofhealthy nonobese males (BMI <30) between 19 and 39 yearsold. Joni et.al. JCEM 2017,102;7356-5859. PMID:[id number].Performed at: [address] [id number] Director: Checo Pitts PhD, Phone: [phone] [Mass/volume] in Serum or Plasmaon 50-09-4894Clcupbu [Mass/Vol]3.7 g/dL2.9-4.4 [facility] CenterBasophils Auto (Bld) [#/Vol]on 12-26-2023 Basophils (Bld) [#/Vol]0.1 10 3/uL0.0-0.1FLakeHealth Beachwood [facility] Center Basophils/100 WBC Auto (Bld)on 61-08-7138Joyqtiqpl/100 WBC (Bld)0.7 %0.2-2.0 [facility] CenterEosinophils/100 WBC Auto (Bld)on 12-26-2023 Eosinophils/100 WBC (Bld)3.0 %0.9-7.0[facility] Erythrocyte distribution width Auto (RBC) [Ratio]on 86-24-1669Wmmegllynwz distribution width (RBC) [Ratio]21.4 %11.0-15.0[facility] Hematocrit Auto (Bld) [Volume fraction]on 30-64-7715Irpjblwxie (Bld) [Volume fraction]47.9 %42.0-54.0[facility] CenterHemoglobin [Mass/volume] in Bloodon 43-21-4397Njempsfbdx (Bld) [Mass/Vol]15.7 g/dL14.0-18.0 [facility] CenterIgA [Mass/volume] in Serum or Plasmaon 75-25-7338EjK [Mass/Vol]232 mg/aR00-805MwkktqvanWright-Patterson Medical CenterIgG [Mass/volume] in Serum or Plasmaon 75-51-5809WlX [Mass/Vol]1144 mg/cR161-8433 [facility] CenterIgM [Mass/volume] in Serum or Plasmaon 36-23-4456ExP [Mass/Vol]79 mg/wI52-115CywjufsfzWright-Patterson Medical CenterLon 51-54-9038BCnwynpcd: Received: 12/27/23 Status: KELSIE Wade Num: [id number] Spec Type: Impression Subm Dr: Margaux Estrada MD Tissues: PATHPER Procedures: PATHREVIEW Age/ Patient Sex Location Account Attending Physician Manuel Burgos 53/M LABELL [id number] Margaux Estrada MD SPEC NUM: RECD: 12/27/23 STATUS: KELSIE WADE NUM: [id number] MAYRA: 12/26/[address]: Margaux Estrada MD ENTERED: 12/27/23 [facility] DR: Chase Oropeza SPEC TYPE: Impression DEPT: KELSIE Jackson ENTERED BY: [id number] RECV BY: [id number] ORDERED: PATHREVIEW ORDERED: PATHREVIEW Pathologist Review Occasional atypical lymphocytes are noted. Atypical infection should be ruled out. Specimen: Received: 12/27/23 Status: KELSIE Wade Num: [id number] Spec Type: Impression Subm Dr: Margaux Estrada MD Tissues: PATHPER Procedures: PATHREVIEW Patient: Manuel Burgos [id number] (Continued) Signed (signature on file) Elroy Hutchins MD 12/27/[address] [place] [address] Physician GroupLaboratory - Chemistry and Chemistry - challengeon 48-71-3901NOM [Catalytic activity/Vol]211 U/L85-227 [facility] CenterProtein [Mass/Vol]0.2 g/dLNot ObservedWright-Patterson Medical CenterLaboratory - Hematology and Cell countson 12-26-2023 Immature granulocytes/100 WBC (Bld)0.2 %0.0-0.5FLakeHealth Beachwood [facility] Center Leukocytes [#/volume] corrected for nucleated erythrocytes in Blood by Automated counon 61-00-9505PSZ corrected for nucl RBC Auto (Bld) [#/Vol]9.7 10 3/uL 4.0-11.0[facility] CenterLymphocytes Auto (Bld) [#/Vol]on 18-93-2612Nmbhjxpjbll (Bld) [#/Vol]3.5 10 3/uL1.2-3.8[facility] CenterLymphocytes/100 WBC Auto (Bld)on 48-86-6645Piynfyzxidj/100 WBC (Bld)36.4 % 20.5-60.0[facility] CenterMCH Auto (RBC) [Entitic mass]on 34-40-2880DEP (RBC) [Entitic mass]27.5 pg25.9-34.0[facility] CenterMCHC Auto (RBC) [Mass/Vol]on 20-04-0190BHPK (RBC) [Mass/Vol]32.8 g/dL 29.9-35.2FLakeHealth Beachwood Medical CenterMCV Auto (RBC) [Entitic vol]on 80-05-0604IYR (RBC) [Entitic vol]84.0 fL80.0-94.0[facility] CenterMonocytes Auto (Bld) [#/Vol]on 75-85-4673Woaaogkbo (Bld) [#/Vol]0.7 10 3/uL0.3-0.8[facility] CenterMonocytes/100 WBC Auto (Bld)on 91-81-6301Yxoszcwma/100 WBC (Bld)7.5 %1.7-12.0[facility] Neutrophils Auto (Bld) [#/Vol]on 40-58-2641Bmcvbmqigil (Bld) [#/Vol]5.1 10 3/uL 1.4-6.5FLakeHealth Beachwood Medical CenterNeutrophils/100 WBC Auto (Bld)on 29-56-8525Puedmznhnqe/100 WBC (Bld)52.2 %43.0-75.0[facility] CenterNo Panel Informationon 09-59-4218Jjeaztzwtdx # (Auto)0.3 10 3/uL0.0-0.7 [facility] CenterImmature Granulocyte # (Auto)0.02 10 3/uL 0.00-0.03[facility] CenterProtein Electrophoresis NoteComment. [facility] Medical CenterComment on above:Protein electrophoresis scan will follow via computer,mail, or service attendant cafeteria delivery.Performed at: [facility] [employer] [id number] Director: Checo Pitts PhD, Phone: [phone] mean volume Auto (Bld) [Entitic vol]on 12-26-2023 Platelet mean volume (Bld) [Entitic vol]10.0 fL9.5-13.5FLakeHealth Beachwood Medical CenterPlatelets Auto (Bld) [#/Vol]on 51-21-7026Udeavitsv (Bld) [#/Vol] 269 10 3/uS842-038KpwqidtdyWright-Patterson Medical CenterProtein [Mass/volume] in Serum or Plasmaon 93-85-1181Osqxeir [Mass/Vol]6.9 g/dL6.0-8.5FLakeHealth Beachwood Medical CenterRBC Auto (Bld) [#/Vol]on 59-68-8203QBP (Bld) [#/Vol]5.70 10 6/uL 4.70-6.10[facility] Hospitalerum globulin measurement (mass/volume)on 07-78-0526Ssqsfwoa (S) [Mass/Vol]3.2 g/dL2.2-3.9[facility] Hospitalerum or plasma albumin/globulin mass ratioon 12-26-2023 Albumin/Globulin [Mass ratio]1.2 {ratio}0.7-1.7FLake[facility] Serum or plasma alpha 1 globulin measurement by electrophoresis (mass/volume)on 51-57-4189Zyxzn 1 globulin Elph [Mass/Vol]0.2 g/dL0.0-0.4FOhioHealth Riverside Methodist Hospitalerum or plasma alpha 2 globulin measurement by electrophoresis (mass/volume)on 79-03-1145Dentj 2 globulin Elph [Mass/Vol]0.7 g/dL0.4-1.0 [facility] Hospitalerum or plasma beta globulin measurement by electrophoresis (mass/volume)on 08-05-5140Oxan globulin Elph [Mass/Vol]1.5 g/dL 0.7-1.3FOhioHealth Riverside Methodist Hospitalerum or plasma gamma globulin measurement by electrophoresis (mass/volume)on 86-38-4949Wqahm globulin Elph [Mass/Vol]0.9 g/dL0.4-1.8[facility] Hospitalerum or plasma immunoelectrophoresis interpretationon 91-16-5567Ckkvddplurkfgb IEP [Interp] Comment.[facility] CenterComment on above:Immunofixation shows IgG monoclonal protein with lambdalight chain specificity.Basophils Auto (Bld) [#/Vol]on 22-27-6984Lsvrhjtan (Bld) [#/Vol]0.1 10 3/uL0.0-0.1FLakeHealth Beachwood Medical CenterBasophils/100 WBC Auto (Bld)on 30-62-5111Othzttxhg/100 WBC (Bld) 1.1 %0.2-2.0[facility] CenterEosinophils/100 WBC Auto (Bld)on 39-45-8677Fqjsonkmksz/100 WBC (Bld)3.3 %0.9-7.0[facility] Erythrocyte distribution width Auto (RBC) [Ratio]on 77-31-7750Hezxjzfwzcm distribution width (RBC) [Ratio]21.6 %11.0-15.0[facility] Hematocrit Auto (Bld) [Volume fraction]on 04-24-0979Dkekeqvijs (Bld) [Volume fraction]45.7 %42.0-54.0[facility] Medical CenterHemoglobin [Mass/volume] in Bloodon 09-48-6453Dyocjdfhco (Bld) [Mass/Vol]14.9 g/dL14.0-18.0 [facility] CenterIron binding capacity [Mass/volume] in Serum or Plasmaon 82-38-0977Sgod binding capacity [Mass/Vol]370.0 ug/dL250.0-450.0 [facility] CenterIron saturation [Mass Fraction] in Serum or Plasmaon 12-75-4027Qesf saturation [Mass fraction]37.6 %[facility] CenterLaboratory - Chemistry and Chemistry - challengeon 12-19-2023 Ferritin [Mass/Vol]31.0 ng/mL26.0-388.0[facility] Medical CenterIron [Mass/Vol]139.0 ug/dL65.0-175.0[facility] CenterLaboratory - Hematology and Cell countson 27-56-0510Pdkxvlko granulocytes/100 WBC (Bld)0.5 % 0.0-0.5FLakeHealth Beachwood Medical CenterLeukocytes [#/volume] corrected for nucleated erythrocytes in Blood by Automated counon 07-46-4899GXM corrected for nucl RBC Auto (Bld) [#/Vol]9.4 10 3/uL4.0-11.0[facility] Lymphocytes Auto (Bld) [#/Vol]on 20-69-5312Tjcjgfryssj (Bld) [#/Vol]3.3 10 3/uL 1.2-3.8[facility] CenterLymphocytes/100 WBC Auto (Bld)on 69-23-6717Etkewgeraiz/100 WBC (Bld)34.5 %20.5-60.0[facility] HospitalH Auto (RBC) [Entitic mass]on 30-30-2252VMF (RBC) [Entitic mass]26.8 pg 25.9-34.0[facility] Medical CenterMCHC Auto (RBC) [Mass/Vol]on 08-21-1485FIBW (RBC) [Mass/Vol]32.6 g/dL29.9-35.2FLakeHealth Beachwood Medical CenterMCV Auto (RBC) [Entitic vol]on 90-33-6555LUU (RBC) [Entitic vol]82.2 fL 80.0-94.0[facility] CenterMonocytes Auto (Bld) [#/Vol]on 07-11-6474Rycdhkjdv (Bld) [#/Vol]0.9 10 3/uL0.3-0.8[facility] CenterMonocytes/100 WBC Auto (Bld)on 49-13-4631Iibwxpyes/100 WBC (Bld)9.2 % 1.7-12.0[facility] Medical CenterNeutrophils Auto (Bld) [#/Vol]on 11-35-3006Eepepgzpaes (Bld) [#/Vol]4.9 10 3/uL1.4-6.5FLakeHealth Beachwood Medical CenterNeutrophils/100 WBC Auto (Bld)on 66-65-7232Jnmnifhxwkb/100 WBC (Bld)51.4 % 43.0-75.0[facility] CenterNo Panel Informationon 12-19-2023 Eosinophils # (Auto)0.3 10 3/uL0.0-0.7FLakeHealth Beachwood Medical CenterImmature Granulocyte # (Auto)0.05 10 3/uL0.00-0.03[facility] Miscellaneous TestCOMMENT.[facility] Medical CenterComment on above:Test Ordered: [id number] Hgb Fractionation CascadeHgb F 0.0 % CB Reference Range: 0.0- 2.0Hgb A 97.8 % CB Reference Range: 96.4-98.8Hgb A2 2.2 % CB Reference Range: 1.8-3.2Hgb S 0.0 % CB Reference Range: 0.0Interpretation: Comment CB Reference Range: .Normal hemoglobin present; no hemoglobin variant or betathalassemia identified.Note: Alpha thalassemia may not be detected by the HgbFractionation [place] panel. If alpha thalassemia issuspected, [facility] offers Alpha- Thalassemia DNA Analysis(#[id number]).Performed at: - [address] [id number] Director: Checo iPtts PhD, Phone: [phone] Platelet mean volume Auto (Bld) [Entitic vol]on 75-78-1581Ecpamtch mean volume (Bld) [Entitic vol]9.4 fL9.5-13.5FLakeHealth Beachwood Medical CenterPlatelets Auto (Bld) [#/Vol]on 54-11-8008Jepjthvsb (Bld) [#/Vol]299 10 3/aT322-707LuaxtgjexWright-Patterson Medical CenterRBC Auto (Bld) [#/Vol]on 29-44-6118UCU (Bld) [#/Vol]5.56 10 6/uL4.70-6.10[facility] CenterBasophils Auto (Bld) [#/Vol]on 28-92-2545Qgglxdvze (Bld) [#/Vol]0.1 10 3/uL0.0-0.1FLakeHealth Beachwood Medical CenterBasophils/100 WBC Auto (Bld)on 75-60-8285Zhykopmdz/100 WBC (Bld)0.9 % 0.2-2.0[facility] CenterEosinophils/100 WBC Auto (Bld)on 42-16-5017Hifkdcoqtcn/100 WBC (Bld)3.2 %0.9-7.0[facility] Erythrocyte distribution width Auto (RBC) [Ratio]on 90-60-9404Sbabxcfzkzb distribution width (RBC) [Ratio]17.4 %11.0-15.0[facility] Hematocrit Auto (Bld) [Volume fraction]on 78-91-2377Vbvzfyxlzj (Bld) [Volume fraction]43.5 %42.0-54.0[facility] Medical CenterHemoglobin [Mass/volume] in Bloodon 09-06-1995Hlqxsvdqeo (Bld) [Mass/Vol]13.2 g/dL14.0-18.0 [facility] CenterLaboratory - Chemistry and Chemistry - challengeon 73-46-0922Mpqidzlpp (Vitamin B12) [Mass/Vol]986.0 pg/mL193.0-986.0 [facility] Medical CenterFerritin [Mass/Vol]14.0 ng/mL26.0-388.0 [facility] CenterLaboratory - Hematology and Cell countson 18-82-2295Fptwixdl granulocytes/100 WBC (Bld)0.2 %0.0-0.5FLakeHealth Beachwood Medical CenterLeukocytes [#/volume] corrected for nucleated erythrocytes in Blood by Automated counon 07-79-1830TCD corrected for nucl RBC Auto (Bld) [#/Vol]10.0 10 3/uL4.0-11.0[facility] Medical CenterLymphocytes Auto (Bld) [#/Vol]on 38-07-4033Kpilyunkaqe (Bld) [#/Vol]3.6 10 3/uL1.2-3.8[facility] Medical CenterLymphocytes/100 WBC Auto (Bld)on 11-08-2023 Lymphocytes/100 WBC (Bld)35.5 %20.5-60.0[facility] CenterMCH Auto (RBC) [Entitic mass]on 78-36-6356YGZ (RBC) [Entitic mass]23.9 pg25.9-34.0 [facility] CenterMCHC Auto (RBC) [Mass/Vol]on 93-78-0403IBSZ (RBC) [Mass/Vol]30.3 g/dL29.9-35.2FLakeHealth Beachwood Medical CenterMCV Auto (RBC) [Entitic vol]on 50-45-0420OMJ (RBC) [Entitic vol]78.7 fL80.0-94.0[facility] CenterMonocytes Auto (Bld) [#/Vol]on 03-11-9227Xalzhsdxn (Bld) [#/Vol]0.9 10 3/uL0.3-0.8[facility] CenterMonocytes/100 WBC Auto (Bld)on 31-74-2496Kvhqdhxvs/100 WBC (Bld)8.5 %1.7-12.0[facility] Medical CenterNeutrophils Auto (Bld) [#/Vol]on 20-85-1387Ycwogqmhogb (Bld) [#/Vol]5.2 10 3/uL1.4-6.5FLakeHealth Beachwood Medical CenterNeutrophils/100 WBC Auto (Bld)on 39-89-9509Npbtbkvuuqb/100 WBC (Bld)51.7 %43.0-75.0[facility] CenterNo Panel Informationon 95-58-8063Bvxtseztvxf # (Auto)0.3 10 3/uL0.0-0.7FLakeHealth Beachwood Medical CenterFolate19.60 ng/mL8.60-58.90 [facility] CenterImmature Granulocyte # (Auto)0.02 10 3/uL 0.00-0.03[facility] Medical CenterPlatelet mean volume Auto (Bld) [Entitic vol]on 93-90-4480Czazwxmh mean volume (Bld) [Entitic vol]9.4 fL9.5-13.5 [facility] CenterPlatelets Auto (Bld) [#/Vol]on 11-08-2023 Platelets (Bld) [#/Vol]384 10 3/fN921-596WvzmdeajdWright-Patterson Medical CenterRBC Auto (Bld) [#/Vol]on 14-68-3489WOR (Bld) [#/Vol]5.53 10 6/uL4.70-6.10[facility] CenterTESTOSTERONE, TOTALon 03-90-7031Mosytppzkqxo [Mass/Vol] 487 ng/qFGycikb525-178Beg [facility] HospitalComment on above:Result Comment: Adult male reference interval is based on a population of healthy nonobese males (BMI <30) between 19 and 39 years old. Joni et.al. JCEM 2017,102;4684-1739. PMID: [id number].Performed By: #### TESTTOT #### [facility] [address] [address] [address] Myhcal Shine SINGLE QUAD RT UPPERon 93-15-2973TR SINGLE QUAD RT UPPER EXAMINATION: US SINGLE [...] Electronically authenticated by: CHRISTOFER SCHAEFFER Date: 2022-08-25 07:07[facility] HospitalTESTOSTERONE, TOTALon 72-90-4678Aeanswzfvlpb [Mass/Vol]410 ng/zBRgbtmv718-441Niu [facility] HospitalComment on above:Result Comment: Adult male reference interval is based on a population of healthy nonobese males (BMI <30) between 19 and 39 years old. bouchra Quinones.al. JCEM 2017,102;0201-2573. PMID: [id number].Performed By: #### TESTTOT #### [facility] [address] [place] [address] Dr. Mychal KimC AUTO DIFFon 63-17-6329LMOL #0.1 103/ulNormal0.0-0.1The [facility] HospitalComment on above:Performed By: #### CBC #### [facility] [address] [place] [address] Dr. Mychal OropezaBasophils/100 WBC (Bld)0.9 %Normal0.2-2.0The [facility] Comment on above:Performed By: #### CBC #### [facility] [address] [place] [address] Dr. Mychal [place] #0.7 103/ulNormal0.0-0.7The [facility] HospitalComment on above: Performed By: #### CBC #### [facility] [address] [place] [address] Dr. Mychal Silvermanosinophils/100 WBC (Bld)6.7 %Normal0.9-7.0The [facility] Comment on above:Performed By: #### CBC #### [facility] [address] [place] [address] Dr. Mychal Silvermanrythrocyte distribution width (RBC) [Ratio]12.8 %Elwdey29.0-15.0 The [facility] HospitalComment on above:Performed By: #### CBC #### [facility] [address] [place] [address] Dr. Mychal OropezaHematocrit (Bld) [Volume fraction]46.9 %Mhsfax48.0-54.0The [facility] HospitalComment on above:Performed By: #### CBC #### [facility] [address] [place] [address] Dr. Mychal OropezaHemoglobin (Bld) [Mass/Vol]16.2 g/tWCljxei80.0-18.0The [facility] HospitalComment on above:Performed By: #### CBC #### [facility] [address] [place] [address] Dr. Mychal Roberts #0.04 10e3/ulCritically high0.00-0.03[facility] Comment on above:Performed By: #### CBC #### [facility] [address] [place] [address] Dr. Mychal Roberts %0.4 %Normal0.0-0.5The [facility] HospitalComment on above: Performed By: #### CBC #### [facility] [address] [place] [address] Dr. Mychal Rice #4.1 103/ulCritically high1.2-3.8ThPro[facility] Comment on above:Performed By: #### CBC #### [facility] [address] [place] [address] Dr. Mychal Backmphocytes/100 WBC (Bld)37.7 %Rsknqx84.5-60.0[facility] - AndersonComment on above:Performed By: #### CBC #### [facility] [address] [place] [address] Dr. Mychal Ospina DIFF REQNONormalThe [facility] HospitalComment on above: Performed By: #### CBC #### [facility] [address] [place] [address] Dr. Mychal Hu (RBC) [Entitic mass]30.7 cuLcgtzw50.9-34.0The [facility] HospitalComment on above:Performed By: #### CBC #### [facility] [address] [place] [address] Dr. Mychal Hu (RBC) [Mass/Vol]34.5 g/nEKctujx82.9-35.2The [facility] HospitalComment on above:Performed By: #### CBC #### [facility] [address] [place] [address] Dr. Mychal Sutherland (RBC) [Entitic vol]88.8 nYWrnvtq25.0-94.0The [facility] HospitalComment on above:Performed By: #### CBC #### [facility] [address] [place] [address] Dr. Mychal Goodwin #0.9 103/ulCritically high0.3-0.8ThProMedica Toledo Hospital Comment on above:Performed By: #### CBC #### [facility] [address] [place] [address] Dr. Mychal Correiaocytes/100 WBC (Bld)8.1 %Normal1.7-12.0[facility] Comment on above:Performed By: #### CBC #### [facility] [address] [place] [address] Dr. Yilan ChangNEUT #5.1 103/ulNormal1.4-6.5The [facility] HospitalComment on above:Performed By: #### CBC #### [facility] [address] [place] [address] Dr. Mychal Patelutrophils/100 WBC (Bld)46.2 %Ogbajr59.0-75.0[facility] - AndersonComment on above:Performed By: #### CBC #### [facility] [address] [place] [address] Dr. Mychal OropezaPlatelet mean volume (Bld) [Entitic vol]9.7 fLNormal9.5-13.5The [facility] HospitalComment on above:Performed By: #### CBC #### [facility] [address] [place] [address] Dr. Mychal OropezaPLT308 103/vvGvmqsv023-829Bvk [facility] HospitalComment on above: Performed By: #### CBC #### [facility] [address] [place] [address] Dr. Mychal OropezaRBC5.28 106/ulNormal4.70-6.10The [facility] HospitalComment on above:Performed By: #### CBC #### [facility] [address] [place] [address] Dr. Mychal OropezaWBC10.9 103/ulNormal4.0-11.0[facility] AndersonComjohn [facility] on above:Performed By: #### CBC #### [facility] [address] [place] [address] Dr. Mychal OropezaGLYCOHEMOGLOBIN A1Con 89-84-4624SZM RECOMMENDATIONSEE BELOWNormal The [facility] HospitalComment on above:Result Comment: ADA RECOMMENDED LIMIT 4.0 - 6.0 ADA THERAPEUTIC TARGET < 7.0 ACTION SUGGESTED > 7.0Performed By: #### A1C #### [facility] [address] [place] [address] Dr. Mychal OropezaGlucose [Mass/Vol]108 mg/dLNormalThProMedica Toledo HospitalComment on above:Performed By: #### A1C #### [facility] [address] [place] [address] Dr. Mychal OropezaHbA1c (Bld) [Mass fraction]5.4 %Normal4.5-6.2The [facility] on above:Performed By: #### A1C #### [facility] [address] [place] [address] Dr. Mychal OjedaID PROFILEon 98-47-6343CJYC-HDL RATIO NORMSEE BELOWOhio Valley HospitalComment on above:Result Comment: 3.3 - 4.4 LOW RISK 4.4 - 7.1 AVERAGE RISK 7.1 - 11.0 MODERATE RISK >11.0 HIGH RISKPerformed By: #### TSH, LIPID, CMP #### [facility] [address] [place] [address] Dr. Mychal Vasquezesterol [Mass/Vol]207 mg/dLCritically high<=200The [facility] on above:Performed By: #### TSH, LIPID, CMP #### [facility] [address] [place] [address] Dr. Mychal Vasquezesterol in HDL [Mass/Vol]47 mg/dTBpsgut50-89Yze [facility] on above:Performed By: #### TSH, LIPID, CMP #### [facility] [address] [place] [address] Dr. Mychal Vasquezesterol in LDL [Mass/Vol]122.4 mg/dLMemorial Health System [facility] on above:Performed By: #### TSH, LIPID, CMP #### [facility] [address] [place] [address] Dr. Mychal Winslow.total/Cholesterol in HDL [Mass ratio]4.4 {ratio} NormalThe [facility] on above:Performed By: #### TSH, LIPID, CMP #### [facility] [address] [place] [address] Dr. Mychal StuartL NORMAL> or = 60 mg/dl - LOW CARDIOVASCULAR RISK <40 mg/dl - HIGH CARDIOVASCULAR RISKOhio Valley HospitalComment on above:Performed By: #### TSH, LIPID, CMP #### [facility] [address] [place] [address] Dr. Mychal Esparza CALC NORMALSEE BELOWOhio Valley HospitalComment on above:Result Comment: <100 mg/dl OPTIMAL 100 - 129 mg/dl NEAR OR ABOVE OPTIMAL 130 - 159 mg/dl BORDERLINE HIGH 160 - 189 mg/dl HIGH >190 mg/dl VERY HIGH Performed By: #### TSH, LIPID, CMP #### [facility] [address] [place] [address] Dr. Mychal OropezaTriglyceride [Mass/Vol]188 mg/dLCritically high<=150The [facility] HospitalComjohn d. [facility] on above:Performed By: #### TSH, LIPID, CMP #### [facility] [address] [place] [address] Dr. Mychal OropezaVLDL CALC37.6 mg/dLNoCleveland ClinicComment on above: Performed By: #### TSH, LIPID, CMP #### [facility] [address] [place] [address] Dr. Mychal OropezaPROJarek 14(COMP METB)on 31-72-9368Jfwakid [Mass/Vol]3.9 g/dLNormal 3.4-5.0The [facility] on above:Performed By: #### TSH, LIPID, CMP #### [facility] [address] [place] [address] Dr. Mychal OropezaAlbumin/Globulin [Mass ratio]1.1 {ratio}NormalThe [facility] HospitalComjohn d. [facility] on above:Performed By: #### TSH, LIPID, CMP #### [facility] [address] [place] [address] Dr. Mychal Amin [Catalytic activity/Vol]77 U/OXeotyx86-866Xxa [facility] on above:Performed By: #### TSH, LIPID, CMP #### [facility] [address] [place] [address] Dr. Mychal Ortiz [Catalytic activity/Vol]56 U/YRawssu68-44Fmg [facility] on above:Performed By: #### TSH, LIPID, CMP #### [facility] [address] [address] [address] Mychal Tam gap [Moles/Vol]8.6 mmol/LNormalThe [facility] HospitalComment on above:Performed By: #### TSH, LIPID, CMP #### [facility] [address] [address] [address] Mychal OropezaAST [Catalytic activity/Vol]30 U/BFmkatf64-35Xzi [facility] HospitalComment on above:Performed By: #### TSH, LIPID, CMP #### [facility] [address] [place] [address] Dr. Mychal OropezaBilirubin [Mass/Vol]0.6 mg/dLNormal0.2-1.0The [facility] Comment on above:Performed By: #### TSH, LIPID, CMP #### [facility] [address] [place] [address] Dr. Mychal OropezaCalcium [Mass/Vol]9.2 mg/dLNormal8.5-10.1The [facility] Comment on above:Performed By: #### TSH, LIPID, CMP #### [facility] [address] [address] [address] Mychal OropezaChloride [Moles/Vol]100 mmol/BTsdufr35-521Kgj [facility] Comment on above:Performed By: #### TSH, LIPID, CMP #### [facility] [address] [place] [address] Dr. Mychal OropezaCO2 [Moles/Vol]30.0 mmol/JRmnpnt33.0-32.0The [facility] Comment on above:Performed By: #### TSH, LIPID, CMP #### [facility] [address] [place] [address] Dr. Mychal OropezaCreatinine [Mass/Vol]1.37 mg/dLCritically high0.70-1.30The [facility] HospitalComment on above:Performed By: #### TSH, LIPID, CMP #### [facility] [address] [place] [address] Dr. Horta ChangEGFR-AF TUVALUAN>60Normal>=60The [facility] HospitalComment on above:Performed By: #### TSH, LIPID, CMP #### [facility] [address] [place] [address] Dr. Mychal SilvermanGFR-NON AF JMUPOQBM86 mL/min/1.60z1Wmffzrfyir low>=60The [facility] HospitalComment on above:Performed By: #### TSH, LIPID, CMP #### [facility] [address] [place] [address] Dr. Mychal OropezaGlobulin (S) [Mass/Vol]3.7 g/dLNormalThe [facility] HospitalComment on above:Performed By: #### TSH, LIPID, CMP #### [facility] [address] [place] [address] Dr. Mychal OropezaGlucose [Mass/Vol]111 mg/dLCritically plvd53-428Ryv [facility] HospitalComment on above:Performed By: #### TSH, LIPID, CMP #### [facility] [address] [place] [address] Dr. Myhcal OropezaPotassium [Moles/Vol]3.6 mmol/LNormal3.5-5.1The [facility] Comment on above:Performed By: #### TSH, LIPID, CMP #### [facility] [address] [place] [address] Dr. Mychal OropezaProtein [Mass/Vol]7.6 g/dLNormal6.4-8.2The [facility] Comment on above:Performed By: #### TSH, LIPID, CMP #### [facility] [address] [place] [address] Dr. Mychal OropezaSodium [Moles/Vol]135 mmol/LCritically gzo715-967Igs [facility] HospitalComment on above:Performed By: #### TSH, LIPID, CMP #### [facility] [address] [place] [address] Dr. Mychal OropezaUrea nitrogen [Mass/Vol]14.0 mg/dLNormal7.0-18.0The [facility] HospitalComment on above:Performed By: #### TSH, LIPID, CMP #### [facility] [address] [place] [address] Dr. Mychal OropezaUrea nitrogen/Creatinine [Mass ratio]10.2 mg/mgNormalThe [facility] HospitalComment on above:Performed By: #### TSH, LIPID, CMP #### [facility] [address] [address] [address] Mychal OropezaTSHon 03-34-1918POB4.907 uIU/mLNormal0.358-3.740The [facility] HospitalComment on above:Performed By: #### TSH, LIPID, CMP #### [facility] [address] [address] [address] Mychal OropezaTESTOSTERONE, TOTALon 27-53-9695Gubyabfjwjaz [Mass/Vol]324 ng/dL Dbmozq130-677Upp [facility] HospitalComjohn [facility]. [facility] on above:Result Comment: Adult male reference interval is based on a population of healthy nonobese males (BMI <30) between 19 and 39 years old. Joni et.al. JCEM 2017,102;3828-9133. PMID: [id number].Performed By: #### TESTTOT #### [facility] [address] [place] [address] Dr. Mychal OropezaXR SPINE CERVICAL WITH OBL AND FLEX/EXTon 73-64-6198JX SPINE CERVICAL WITH OBL AND FLEX/EXTEXAM: XR [...] There is fair flexion. No instability is noted.[facility] Southern New MexicoXR SPINE LUMBAR W BENDINGon 04-28-1743HR SPINE LUMBAR W BENDINGEXAM: XR SPINE LUMBAR [...] a very good range of motion without instability.[facility] Southern New MexicoXR SPINE LUMBAR W BENDINGOrdered By: Maik Barbosa on 02-10-2021 IMPRESSION: Lumbar spine visually is fairly well preserved. There is no evidence of fracture, listhesis, significant disc space narrowing or major degenerative changes. There is a very good range of motion without instability.[facility] SystemEXAM: XR SPINE LUMBAR W BENDING HISTORY: back [...] of motion. There is no listhesis or instability.[facility] SystemUser, Interfaces - 02/10/2021 4:52 PM EDT EXAM: [...] very good range of motion without instability. [facility] Vital Signs Date TimeVital SignValuePerforming WxvuwhvtdMoacahfb86-85-7888 13:29-0500Body .18 cmEfrain Bowling MD Work Phone: [phone]79[facility]11-11-2025 13:29-0500 Body mass index (BMI) [Ratio]34.9 kg/n9GdnvcuEfrain Bowling MD Work Phone: 1(772)380-[address] [place] [employer], [place] 8364811-11-2025 13:29-0500 Body hsxasj334.26 kgEfrain Bowling MD Work Phone: [phone])[address]11-11-2025 13:29-0500 Diastolic blood nbixzbkv87 mm[Hg]Efrain Bowling MD Work Phone: [phone]11-11-2025 13:29-0500 Heart rate74 /minEfrain Bowling MD Work Phone: 1(293)875-[address] [place] [employer], [place] 8364811-11-2025 13:29-0500 Systolic blood pyfgzyhh858 mm[Hg]Efrain Bowling MD Work Phone: [phone]02-05-2025 14:24-0500 Body .18 cmW[facility]02-05-2025 14:24-0500Body mass index (BMI) [Ratio]35.2 kg/b3RhebpbbzbW[facility]02-05-2025 14:24-0500Body .7 [degF][facility]02-05-2025 14:24-0500Body mxkaes277.2 kgW[facility] Center02-05-2025 14:24-0500Diastolic blood mm[Hg][facility] 10-16-2024 14:24-0500Heart rate86 /minW[facility]-Patterson Medical Center 10-16-2024 14:24-5539PxS9% (BldA) [Mass fraction]96 %[facility]02-05-2025 14:24-0500Systolic blood oddmewlc073 mm[Hg][facility]01-06-2025 15:18-0500Body egmrng456.18 cmW[facility] Center01-06-2025 15:18-0500Body mass index (BMI) [Ratio]34.7 kg/m2 [facility]01-06-2025 15:18-0500Body oouzdh644.69 kg [facility]01-06-2025 15:18-0500Diastolic blood ujpvbcnf13 mm[Hg][facility]01-06-2025 15:18-0500Heart rate70 /min [facility]01-06-2025 15:18-0500Systolic blood qalpcpda480 mm[Hg][facility]09-04-2024 15:36-0400Body emrfwk554.7 cm Anika Frazier FIRESET[employer] Work Phone: noCarondelet HealthArlozjbpwe57-94-8026 15:36-0400Diastolic blood wkxqpyve65 mm[Hg]Anika Frazier FIRESETTER Work Phone: [facility] HospitalJctwlptpkr70-88-3308 15:36-0400Heart rate70 /min Anika Carpenterr FIRESETTER Work Phone: noCarondelet HealthHlvypetwnu93-55-1785 15:36-4120BxO2% (BldA) [Mass fraction]94 %Anika Frazier FIRESETTER Work Phone: noCarondelet HealthPaxtrdcjib13-77-6149 15:36-0400Systolic blood mm[Hg]Anika Frazier FIRESETTER Work Phone: [facility] HospitalSnsvmebour20-01-4962 15:30-0500Body geqcig991.18 cmEfrain Tawnya Other [employer] Other 12-21-2023 15:30-0500Body mass index (BMI) [Ratio] 33.04 kg/l3Dithmy Tawnya Other [employer] Other 12-21-2023 15:30-0500Body vzpkyp94.71 kgJacklynlemuel Tawnya Other [employer] Other 12-21-2023 15:30-0500Diastolic blood mm[Hg] Efrain Bowling Other [employer] Other 12-21-2023 15:30-0500Systolic blood xixlyhcm470 mm[Hg] Efrain Bowling Other [employer] Other 11-21-2023 08:30-0500Body oszygi537.18 cmJacklynlemuel Bowling Other [employer] Other 11-21-2023 08:30-0500Body mass index (BMI) [Ratio] 35.14 kg/x7EfwkuwEfrain Bowling Other [employer] Other 11-21-2023 08:30-0500Body .79 kgEfrain Bowling Other [employer] Other 11-21-2023 08:30-0500Diastolic blood rirnbjzs34 mm[Hg] Efrain Bowling Other [employer] Other 11-21-2023 08:30-0500Systolic blood hwctjfes561 mm[Hg] Efrain Bowling Other [employer] Other 08-06-2021 12:05-0400Diastolic blood mm[Hg] Maik Barbosa MD Work Phone: [address] [place], [place] 1623208-06-2021 12:05-0400Heart rate54 /Reva Barbosa MD Work Phone: [facility]08-06-2021 12:05-0400Respiratory rate16 /Reva Barbosa MD Work Phone: 1(160)774-[address] [place], [place] 4485708-06-2021 12:05-6715RkJ4% (BldA) [Mass fraction]95 %Maik Barbosa MD Work Phone: 1([phone])081-[address] [place], [place] 4485708-06-2021 12:05-0400Systolic blood ekwgmanz906 mm[Hg]Maik Barbosa MD Work Phone: [phone])581-[address] [place], [place] 4485707-07-2021 08:04-0400Body height 170.2 cmAtrina Barbosa MD Work Phone: 1(395)670-[address] [place], [place] 4485707-07-2021 08:04-0400Body mass index (BMI) [Ratio]34.61 kg/r6VjzunMaik Barbosa MD Work Phone: 1(413)816-[address] [place], [place] 4485707-07-2021 08:04-0400Body weight 100.25 kgMaik Barbosa MD Work Phone: 1(526)751-[address] [place], [place] 4485707-07-2021 08:04-0400Diastolic blood bxqnikmh50 mm[Hg]Maik Barbosa MD Work Phone: 1(159)562-[address] [place], [place] 4485707-07-2021 08:04-0400Heart rate74 /Reva Barbosa MD Work Phone: 1(221)411-[address] [place], [place] 4485707-07-2021 08:04-0400Respiratory rate20 /Reva Barbosa MD Work Phone: 1(106)255-[address] [place], [place] 4485707-07-2021 08:04-1113RrK3% (BldA) [Mass fraction]96 %Maik Barbosa MD Work Phone: 1(243)448-[address] [place], [place] 4485707-07-2021 08:04-0400Systolic blood ugatcfok808 mm[Hg]Maik Barbosa MD Work Phone: 1(738)019-[address] [place], [place] 4485706-16-2021 12:02-0400Diastolic blood mm[Hg]Maik Barbosa MD Work Phone: 1(602)078-[address] [place], [place] 4485706-16-2021 12:02-0400Heart rate55 /Reva Barbosa MD Work Phone: 1(808)441-[address] [place], [place] 4485706-16-2021 12:02-0400Respiratory rate18 /Reva Barbosa MD Work Phone: [phone])[address]06-16-2021 12:02-0824XjL8% (BldA) [Mass fraction]95 %Maik Barbosa MD Work Phone: 1(589)791-[address] [place], [place] 4485706-16-2021 12:02-0400Systolic blood nzkdxhhu069 mm[Hg]Maik Barbosa MD Work Phone: 1(351)648-[address] [place], [place] 4485706-02-2021 11:46-0400Body height 170.2 cmAtrina Barbosa MD Work Phone: [phone])583-[address] [place], [place] 4485706-02-2021 11:46-0400Body mass index (BMI) [Ratio]34.61 kg/a2ZkslmMaik Barbosa MD Work Phone: 1(393)829-[address] [place], [place] 4485706-02-2021 11:46-0400Body weight 100.25 kgMaik Barbosa MD Work Phone: 1(297)906-[address] [place], [place] 4485706-02-2021 11:46-0400Diastolic blood hzmzjygl55 mm[Hg]Maik Barbosa MD Work Phone: 1(730)005-[address] [place], [place] 4485706-02-2021 11:46-0400Heart rate64 /Reva Barbosa MD Work Phone: 1(995)930-[address] [place], [place] 4485706-02-2021 11:46-0400Respiratory rate18 /Reva Barbosa MD Work Phone: 1(013)637-[address] [place], [place] 4485706-02-2021 11:46-4607IfF0% (BldA) [Mass fraction]99 %Maik Barbosa MD Work Phone: [facility]06-02-2021 11:46-0400Systolic blood syrzftzp150 mm[Hg]Maik Barbosa MD Work Phone: [facility] Encounters Encounter DateEncounter TypeCare ProviderFacilityStart: 92-90-7861rtvjfczpaf Chata Inman LueFacility:EU BellevueStart: 07-22-2025 End: 17-02-7516jrtarxnuoqJzqukp E Braun MD Work Phone: -[facility]: 07-22-2025 End: 76-20-6865Jnnliee encounter procedureEfrain Bowling MD-[facility] Work Phone: Start: 08-15-5293Oaa-patient / Non-visitNicbecca Ambriz [facility] Work Phone: Start: 12-27-9621Tng-patient / Non-visitBrysilvia Pablo [facility] Work Phone: Start: 05-05-2025 End: 08-93-4217xznpmxlsfbTywtbdz Chandrakant Fairchild MDFacility:[facility] Start: 03-24-2025 End: 89-97-4057dqjrctekuxQpcvike Vegaytpaige Giedraitis MDFacility:[facility] Start: 10-16-2024 End: 82-69-2965dyqcokvnnmPgnetfgywNewark Hospital Work Phone: Start: 10-16-2024 End: 96-47-6112Ibrakkc encounter procedureFormerly [facility] Work Phone: Start: 09-16-2024 End: 04-83-5253jxyhdjbwyxUnkzdufnvSelect Medical [facility] Work Phone: Start: 09-16-2024 End: 66-70-0067Qouaoaasm for general adult medical examination without abnormal findingsOur Lady of Mercy Hospitaltart: 09-16-2024 End: 13-66-4487Gpngljk encounter procedureFormerly [facility] GroupHigh[facility] Work Phone: Start: 07-31-2024 End: 93-10-4483ozloufyjddLbgrj M. LueFacility:EU [place]vueStart: 58-50-1057Eeu- patient / Non-visitFormerly [facility] Phys[facility] GroupAst[facility] Work Phone: Start: 39-26-1368Aluonyd encounter statusOur Lady of Mercy Hospitaltart: 11-19-5687Tte-patient / Non-visitFormerly [facility] Physician [facility] Work Phone: Start: 07-22-2024 End: 47-27-5709bnycjzanvaTctaede Chandrakant Barillasedioana MDFacility:PM Srinath Start: 05-15-2024 End: 53-65-7390mkthfsjaiaWGSPNB MANDYNot AvailableStart: 05-15-2024 End: 52-45-9954Avhddx outpatient visit 25 minutesAngecarito Frazier FIRESETTER Work Phone: noMS SRINATH STATE ROUTEComment on above:PLMD (periodic limb movement disorder) (Primary Dx); Hypersomnia; JOSÉ (obstructive sleep apnea); SnoringStart: 05-15-2024 End: 95-54-5931Clwqkd flowswilmanAngecarito Frazier FIRESETTER Work Phone: noMS SRINATH STATE ROUTEStart: 05-15-2024 End: 38-60-2652Clsaki flowswilmanAngecarito Frazier FIRESETTER Work Phone: NOMS SRIN[address] STATE ROUTEStart: 02-21-2024 End: 72-50-9156rsducsuwccELYCLP PASCALENERNot AvailableStart: 12-26-2023 End: 26-72-6774izjqmyhtwtGbbqlc E BraunFacility:[facility] Hospitaltart: 97-10-3426Hpw-patient / Non-visitFormerly [facility] Physician [facility] Work Phone: Start: 93-30-8088Vmt-patient / Non-visitFormerly [facility] Work Phone: Start: 31-79-8760Ust-patient / Non-visitFormerly [facility] Work Phone: Start: 39-22-9745Mpz-patient / Non-visitFormerly [facility] Work Phone: Start: 10-02-2023 End: 41-58-5298Lsvimpg encounter procedureFormerly [facility]-Start: 08-31-2023 End: 15-68-2944oglhgfifsuGxlhdn Braun Other [employer] Other Start: 62-52-3271Qxaosd outpatient visit 15 minutes [facility]frain [facility] ClinicStart: 08-01-2023 End: 63-36-2717fsafwketvfRoamun Braun Other [employer] Other Start: 97-29-9560Uhnrgywuu for general adult medical examination without abnormal findingsMarcia [facility] ClinicStart: 27-39-8567Mxjvhpyd preventive med est patient 40-64yrsMarcia [facility] ClinicStart: 01-06-2023 End: 25-20-8690etlyeqlvejIM MARCIA E BRAUNFacility:T6Mgqvo: 08-24-2022 End: 22-02-0937umamelckhaPI MARCIA E BRAUNFacility:C6Ttmea: 59-34-3753otgbtnpiys DR EFRAIN BOWLINGFacility:K3Ehkoz: 04-02-7397voaieyijegQJ EFRAIN BOWLING Facility:Y2Darct: 79-38-7671zmywngujgmDI MARCIA E BRAUNFacility:K2Obsxz: 07-21-2022 End: 95-14-5476wuqpckrelcXZ MEENU IsidroFacility:Q9Zmgnn: 06-20-2022 End: 39-32-6339dujnmnjqchHK MARCIA E BRAUNFacility:I8Pjzge: 05-03-3774Qluyjgyns for general adult medical examination without abnormal findingsDR EFRAIN BOWLING [facility] Centertart: 05-27-2022 End: 83-51-7074ehqhrmlrbjRM MARCIA E BRAUNFacility:N0Fjyqs: 05-27-2022 End: 33-24-8047Mkjvitnpq for general adult medical examination without abnormal findingsDR EFRAIN BOWLINGFacility:E2Wwuhp: 01-19-2022 End: 65-27-1639sfsjfjnadeHV MARCIA E BRAUNFacility:Q2Kgcev: 04-16-2021 End: 13-23-4616Jveanuu encounter procedureMaik Barbosa MD Work Phone: [facility] Procedural Pain ManagementComment on above:Lumbar spondylosis (Primary Dx); Chronic pain syndrome; Myofascial painStart: 03-17-2021 End: 60-04-4204Lolgyj outpatient visit 15 minutesMaik Barbosa MD Work Phone: [facility] ClinicComment on above:Lumbar spondylosis (Primary Dx); Lumbar radiculopathy; Spinal stenosis of cervical region; Chronic pain syndrome; Myofascial painStart: 02-24-2021 End: 13-68-1879Clfprbma Support EncounterMaik Barbosa MD Work Phone: [facility] ClinicComment on above:Myofascial pain (Primary Dx)Start: 02-10-2021 End: 36-75-2801Fpjaetzesh hospital visit by physicianMaik Barbosa MD Work Phone: [facility] Diagnostic RadiologyComment on above: ArrivedStart: 02-10-2021 End: 13-66-4671Pvvceu outpatient new 45 minutesMaik Barbosa MD Work Phone: [facility] Pain ClinicComment on above:Myofascial pain (Primary Dx); Arthropathy of cervical facet joint; Spondylosis of lumbar region without myelopathy or radiculopathy; Chronic pain syndrome; Compliance with medication regimen Procedures DateProcedureProcedure DetailPerforming ClinicianStart: 99-34-7264Hdfxe Strep (POC)Start: 11-50-6061BCX screeningDR EFRAIN BOWLINGComment on above:Performed By: #### PSASC #### [facility] [address] [place] [address] Dr. Mychal OropezaStart: 14-76-8986Rvhvv spine lumbscrl compl w/bending views min 6 Maik Barbosa MD Work Phone: Plan of Treatment DateCare ActivityDetailAuthorStart: 05-21-2021 End: 51-71-9290Rdeozuf encounter gtaivppqv21/10/2021 Office Visit Anesthesiology Pain Mgt Maik Barbosa MD [address] [place] [address] [facility] Procedural Pain ManagementStart: 27-06-4241EalbexieiHillside Hospitaltart: 05-07-2021 End: 40-75-1524Njpzgug encounter iununaeoj34/27/2021 Office Visit Anesthesiology Pain t Maik Barbosa MD [address] [place] [address] [facility] Procedural Pain ManagementStart: 05-03-2021 End: 08-46-9879Epxemxi encounter gmngpoghi19/23/2021 Office Visit Anesthesiology Pain Mgt Maik Barbosa MD [address] [place] [address] [phone] [facility]Start: 04-27-2021 End: 90-75-0043Asynctw encounter yxwrklawg28/17/2021 Office Visit Anesthesiology Pain Mgt Maik Barbosa MD [address] [place] [address] [facility] ClinicStart: 03-17-2021 End: 78-18-6069Pzdckud encounter ulowtfcwp52/07/2021 Office Visit Anesthesiology Pain Mgt Maik Barbosa MD [address] [place] [address] [phone] [facility] ClinicStart: 02-24-2021 End: 85-76-1571Clcotzm encounter wiuehdgam00/16/2021 Office Visit Anesthesiology Pain Mgt Maik Barbosa MD [address] [place] [address] Deven Torres Procedural Pain ManagementStart: 02-10-2021 End: 17-02-8127WIXG SCREEN MED COMPLIANCE IDRUG SCREEN MED COMPLIANCE I Lab Routine Compliance with medication regimen Expected: 02/10/2021, Expires: 02/11/2021[facility], Cancer CenterComment on above:Expected: 02/10/2021, Expires: 02/11/2021tart: 41-27-4634Oswgdnyn specific antigen measurementPROSTATE CANCER SCREENING DISCUSSIONParkview Health Montpelier Hospitaltart: 72-02-6840Bacpjw vaccine hzv live for subcutaneous useZOSTER (SHINGLES) VACCINE (1 of 2)[facility] Hospitaltart: 87-26-1062IwzcvycebcqSPWIBLJZCT CANCER SCREENING DISCUSSIONMount Carmel Health System Start: 55-53-9739Qxqvham lipid profileLIPID SCREENINGParkview Health Montpelier Hospitaltart: 93-30-0615Cbqqk diphtheria, tetanus and acellular pertussis (DTaP) vaccination TDAP (ADULT)[facility] Hospitaltart: 63-12-8696Qowalko vaccinationTETANUSAMarietta Osteopathic Clinictart: 00-00-7074XQS screeningHIV SCREENING DISCUSSIONParkview Health Montpelier Hospitaltart: 44-73-1416NOVVQ-19 VACCINE (1)COVID-19 VACCINE (1)[facility] Hospitaltart: 66-58-8840Dmrahgmsn C antibody, confirmatory testHEPATITIS C VIRUS SCREENINGUC [facility] Payers DatePayer CategoryPayerPolicy [id number] [id number]9-18-8461Kqfhlap [id number]clrawravm0162 1.2.840.743001.1.13.172.2.7.3.61333[id number] 2.16.840.1.931264.3.57[id number] 2.16.840.1.569556.3.57[id number] 2.16.840.1.115877.3.579.[id number] 2.16.840.1.149698.3.57[id number] 2.840.1.051939.3.579.[id number] 2.840.1.330508.3.579.[id number] 2.840.1.329866.3.579.[id number] 2.840.1.634254.3.57[id number] 2.840.1.227369.3.57[id number] 2.840.1.348572.3.579.[id number] 2.840.1.507332.3.579.[id number] 2.840.1.654598.3.57[id number] 2.16840.1.407699.3.579.[id number] 2.16840.1.789573.3.57[id number] 2..840.1.636614.3.579.2.25198-46-6724Dapi-[id number] 2.16.840.1.9[id number] 2.16.840.1.576336.3.579.2.531 Social History DateTypeDetailFacilityStart: 02-10-2021 End: 28-80-8151Hxzohvl smoking status NHISNever smokerParkview Health Montpelier Hospitaltart: 02-10-2021 End: 02-06-8952Gmxmrsp use and exposureNever usedParkview Health Montpelier Hospitaltart: 02-10-2021 End: 75-08-7233Mvejcwg intakeCurrent drinker of alcohol (finding)[facility] Hospitaltart: 02-10-2021 End: 27-21-7750Sslwweu intakeParkview Health Montpelier Hospitaltart: 54-64-6633Bhkvjqj Comment 5 beers/weekParkview Health Montpelier Hospitaltart: 41-55-7971Cob Assigned At [facility] CenterNot on file [facility] Hospitaltart: 02-21-2024 End: 90-11-3307Dcr Assigned At [facility] [employer] Other Start: 34-92-4215Mtm Assigned At [facility] CampusTobacco smoking status NHISUnknown if ever smoked [facility] Work Phone: Start: 09-16-2024 End: 42-20-6656MyeVgna (finding)[facility] Clinical Notes 02-10-2021 to 09-16-2024 Note Date & MwtqVlwiIxrmnvcz95-29-6211 Evaluation note* Diagnosis Onset Date Resolution Status Admit Date Elevated serum creatinine acuteJanuary 2024 2:49pmWellness examinationacuteJanuary 2024 2:49pm Influenza AacuteFebruary 2024 2:16pm [facility] Work Phone: [phone] 450-746611-20-2024 NotePatient Education Urology Erectile Dysfunction Erectile dysfunction [...] these instructions at home: Medicines ??? Take swex-jpd-ummtcwl and prescription medicines only as told by [...] ??? Do not u (more content not included)...[facility]09-04-2024 History of Present illness Narrative* Anika Searsestefany, FIRESETTER - 05/15/2024 3:30 PM EDT Images from [...] a different pressure . . . Plan [place] Sleepiness Scale is 10 Compliance download reviewed [...] was counseled on the risks of stroke, SC, and sudden with JOSÉ, along with the need for compliance with the CPAP/BiPAP treatment. The patient was counseled on proper sleep hygiene and adequate hours of sleep. Return to clinic: 3-4 months documented in this encounterBarnes-Jewish HospitalIgbgemyofy41-09-4823 Evaluation note* Encounter Date Diagnosis Assessment Notes [...] index [BMI] 33.0-33.9, adult (ICD-10 - Z68.33) [employer] Other 11-21-2023 Evaluation note* Encounter Date Diagnosis [...] unspecified (ICD-10 - M54.50)Pt requests referral to [facility]. He hopes to lessen his use of NSAIDs to improve his renal function. Jul,Other chronic pain (ICD-10 - G89.29) Jul,OSA (obstructive sleep apnea) (ICD-10 - G47.33)Form completed for [facility]. Jul,lass 2 obesity with [...] to ER and Follow-up with me immediately. [employer] Other 08-06-2021 History and physical note* Maik [...] Alaniz RN RT - S RT Zach TEAM COORDINATOR - N/A PYTHON DEVELOPER - Aurelio Genao RN Site cleansed with hibiclekeshia. * Maik Barbosa MD - 04/16/2021 11:30 [...] and earlier as needed. documented in this encounterMount Carmel Health System08-06-2021 Instructions* Patient Instructions* Geovanna Degroot RN - 04/16/2021 11:30 AM EDT [facility] WHAT TO EXPECT AFTER A PROCEDURE Follow up appointment: Call the office ([phone]) if you have any questions or develop [...] to call us at . Thank you, [facility] documented in this [facility]07-07-2021 History of Present illness Narrative* Maik Barbosa MD - 03/17/2021 8:15 AM EDT HPI: Maunel Burgos Presents for evaluation and treatment of [...] tried OTC tylenol, celebrex with somemild relief. [place] has helped in the past, but would [...] [facility] Instructions* Patient Instructions* Geovanna Dergoot RN - 03/17/2021 8:15 AM EDT Facet [...] trapezius, and lumbar paraspinal documented in this [facility]06-16-2021 History of Present illness Narrative* aMdina Summers RN - 02/24/2021 11:15 AM EDT PHYSICIAN - SCRUB - Kitty Martinez RN PYTHON DEVELOPER - Madina Site cleansed with chloroprep. Procedure: [...] Denies dysuria or frequency documented in this encounterMount Carmel Health System06-02-2021 History of Present illness Narrative* Maik Barbosa [...] Social Gatherings with Friends and Family: Attends Orthodoxy Services: Active Member of Clubs or Organizations: [...] tried OTC tylenol, celebrex with somemild relief. [facility] has helped in the past, but would [...] within the last year. documented in this encounterMount Carmel Health System06-02-2021 Instructions* Patient Instructions* Geovanna Degroot [...] read the attached handout from the National [place] of Health with guidelines and recommendations for [...] complications are extremely rare. documented in this encounterC[facility] SystemEvaluation note* Diagnosis Myofascial pain- Primary Mylagia and myositis, unspecified Arthropathy of cervical facet joint Cervical spondylosis without myelopathy Spondylosis of lumbar region without myelopathy or radiculopathy Lumbosacral spondylosis without myelopathy Chronic pain syndrome Compliance with medication regimen documented in this encounter [facility] SystemEvaluation note* Diagnosis Spondylosis of lumbar [...] and myositis, unspecified documented in this encounter [facility] SystemEvaluation note* Diagnosis Lumbar spondylosis- Primary Lumbosacral spondylosis without myelopathy Chronic pain syndrome Myofascial pain Mylagia and myositis, unspecified documented in this encounter [facility] SystemEvaluation noteNo assessment information availableUniversity Hospitals Ahuja Medical Center Work Phone: Evaluation note* Diagnosis PLMD (periodic limb movement disorder)- Primary Periodic limb movement disorder Hypersomnia Hypersomnia, unspecified JOSÉ (obstructive sleep apnea) Obstructive sleep apnea (adult) (pediatric) Snoring Other dyspnea and respiratory abnormality documented in this encounter [facility] HospitalEvaluation note* Diagnosis Onset Date Resolution Status Admit Date Elevated serum creatinine acuteJanuary 2024 2:49pmWellness examinationacuteJanuary 2024 2:49pm [facility] Work Phone: Evaluation note* Diagnosis Onset Date Resolution Status Admit Date Class 1 obesity with body mass index (BM I) of 34.0 to 34.9 in adult acuteNovember 2024 1:25pm [facility] Work Phone: History general Narrative - Reported* Type Description Date Medical History Elevated cholesterol with elevat ed triglycerides Medical HistoryLow serum testosterone levelMedical HistoryLumbar painMedical HistoryHypertensionMedical HistoryDiverticulosisSurgical HistoryR shoulder arthroscopySurgical HistoryFB R wristSurgical HistoryUmbilical hernia repair 07/12/2023Surgical ExhyxlyBrklqhrqawy95/15/2023Hospitalization HistorySEE SURGICAL HX [employer] Other Reason for referral (narrative)No reason for referral information availableSelect Medical [facility] Work Phone: Reason for Referral StatusReasonSpecialtyDiagnoses / ProceduresReferred By ContactReferred To ContactAuth Not Needed Diagnoses Myofascial pain Chronic pain syndrome Maik Barbosa MD [address] [place] [address] Scheduling Instructions Please PA and schedule: neck and back TPI (pt will need a [address] Barbosa) Reason *FU 08/08 chronic lumbar pain, would benefit from less NSAID use. Diagnosis 1 Low back pain, unspe cified (M54.50) Referral Organization [facility] xochitl Referring Provider First Name Efrain Referring Provider Last Name Tawnya Referring Provider Specialty Family [facility] Referred Organization [facility] Referred Address [facility] [address] [place], [place],[address] Referred Provider Specialty Pain Medicin e Referral Priority Routine General Notes Es Cooper 05:14:13 PM >received today, attachments made, notes locked, referral faxed Clinical Notes f: [id number] Summary Purpose Family History Relationship Condition Age at Onset Recorded Date/T mita father Hypertension Unknown Not SpecifiedDeceasedUnknown Relationship Condition Age at Onset Recorded Date/T mita father Hypertension Unknown motherDeceasedUnknown Advance Directives Advance Directive Response Recorded Date/ Time Advance Directives No December 25 3:00pm Advance Directive Response Recorded Date/ Time Advance Directives No December 25 2:00pm Chief Complaint and Reason for Visit [...] Influenza A October 16, 2024 2 :16pm Chief Complaint Admit Date Discuss Adipex July 22, 2025 1:25pm Reason for Visit Admit Date Class 1 obesity with body ma ss index (BMI) of 34.0 to 34.9 in adult July 22, 2025 1:25pm Additional Source Comments Reason for Visit (unrecogniz ed section and content) ReasonCommentsPainReasonCommentsNeck PainStatusReasonSpecialtyDiagnoses / ProceduresReferred By ContactReferred To ContactClosed Diagnoses Myofascial pain Chronic pain syndrome Maik Barbosa MD [address] [place] [phone] ReasonCommentsPainSpecialtyDiagnoses / ProceduresReferred By ContactReferred To Contact Diagnoses Lumbar facet arthropathy Maik Barbosa MD [address] [place] [address] Referral IDStatusReasonStart DateExpiration DateVisits RequestedVisits [id number]/[id number] (unrecognized sect ion and content) No Status Records FoundNo Status Records FoundNo Status Records FoundNo Status Records FoundNo Status Records FoundNo Status Records Found INFORMATION SOURCE (unrecogn ized section and content) DATE CREATED AUTHOR 05/10/2021 [facility] DATE CREATED AUTHOR AUTHOR'S ORGANIZ ATION 01/13/2023 [facility] DATE CREATED AUTHOR AUTHOR'S ORGANIZ ATION 12/28/2023 [facility] DATE CREATED AUTHOR AUTHOR'S ORGANIZ ATION 05/17/2024 [facility] DATE CREATED AUTHOR AUTHOR'S ORGANIZ ATION 05/10/2025 [facility] DATE CREATED AUTHOR AUTHOR'S ORGANIZ ATION 07/18/2025 [facility] Care Teams (unrecognized sec tion and content) Team Status: Active Member Role Status Dates Efrain Bowling MD Primary Care Provider Active Team Status: Active Member Role Status Dates Efrain Bowling MD Primary Care Provider Active Start: July 29, 2024 Tl Olivas ProviderActiveStart: July 29, 2024 Team Status: Active Member Role Status Dates Efrain Bowling MD Primary Care Provide r, Attending Provider Active Start: July 30, 2024 Team Status: Inactive Member Role Status Dates Efrain Bowling MD Primary Care Provide r, Attending Provider Active Start: September 16, 2024 End: September 16, 2024Team MemberRelationshipSpecialtyStart DateEnd Date Efrain Bowling MD [address] [place] [address] PCP - [facility]02/10/21 Team Status: Inactive Member Role Status Dates Efrain Bowling MD Attending Provider Active St art: October 02, 2023 End: October 02, 2023 Team Status: Active Member Role Status Dates Efrain Bowling MD Primary Care Provide r, Attending Provider Active Start: November 08, 2023 Team Status: Active Member Role Status Dates Efrain Bowling MD Primary Care Provider Active Start: November 20, 2023 Nano Viramontes ProviderActiveStart: November 20, 2023 Team Status: Active Member Role Status Dates Efrain Bowling MD Primary Care Provide r, Attending Provider Active Start: December 19, 2023 Team Status: Active Member Role Status Dates Efrain Bowling MD Primary Care Provide r, Attending Provider Active Start: December 26, 2023 Tl France ProviderActiveStart: December 26, 2023 End: December 26, 2023Team MemberRelationshipSpecialtyStart DateEnd Date Efrain Bowling MD [address] [place] [id number] PCP - GeneralFamily Medicine02/21/24Team MemberRelationshipSpecialtyStart DateEnd Date Efrain Bowling MD [address] [place] [address] PCP - GeneralFamily Medicine02/21/24 Team Status: Inactive Member Role Status Dates Efrain Bowling MD Primary Care Provider Active Start: October 16, 2024 End: October 16, 2024Geovanna Clarke APRN FIRESETTER-CAttending ProviderActive Start: October 16, 2024 End: October 16, 2024 Team Status: Active Member Role/Relationship Status Dates Efrain Bowling MD Primary Care Provider Active Team Status: Active Member Role/Relationship Status Dates Efrain Bowling MD Primary Care Provider Active Start: July 08, 2025 Amanda Cerrato ProviderActiveStart: July 08, 2025 Team Status: Active Member Role/Relationship Status Dates Efrain Bowling MD Primary Care Provider Active Start: July 09, 2025 Amanda Albarran ProviderActiveStart: July 09, 2025 Team Status: Inactive Member Role/Relationship Status Dates Efrain Bowling MD Primary Care Provider Active Start: July 22, 2025 End: July 22, 2025Tl Blas ProviderActiveStart: July 22, 2025 End: July 22, 2025 Goals (unrecognized section and content) Goals may [...] BE BASED ON THE PRIMARY CLINICAL RECORDS. [employer] [facility]. provides no warranty or guarantee of the accuracy or completeness of information in this document.
--- NOTE | 2025-07-31 15:40 | PM.CN ---
Consult Note: HPI Data of Consult Patient: known to practice within the last 3 years Consult date: 07/31/25 Requesting Physician: Rhonda Cheng NP Primary Care Provider: Kell Jack MD Consult Narrative Reason for consult: low back pain Narrative: Manuel Burgos a 55 year old male with chronic low back pain secondary to lumbar spondylosis presents for evaluation. Patient has longstanding low back pain > 12 months unresponsive to > 6 weeks of HEP, heat, ice, tylenol, NSAIDs. pt interested in repeating lumbar RFAs as previous bilateral L4-5 L5-S1 facet RFA provided at least 50% improvement in axial low back pain for at least 6 months. cc:: CC: Rhonda Cheng NP Review of Systems ROS Musculoskeletal Reports: back pain; Denies: extremity pain PFSH PFSH Medical History Heartburn ?R12 - Heartburn (ICD-10) Umbilical hernia ?K42.9 - Umbilical hernia without obstruction or gangrene (ICD-10) H/O retained foreign body fully removed ?Z87.821 - Personal history of retained foreign body fully removed (ICD-10) Hypertension ?I10 - Essential (primary) hypertension (ICD-10) Glaucoma ?H40.9 - Unspecified glaucoma (ICD-10) Surgical History History of surgery on right wrist ?Z98.890 - Other specified postprocedural states (ICD-10) H/O arthroscopy of shoulder ?Z98.890 - Other specified postprocedural states (ICD-10) H/O colonoscopy ?Z98.890 - Other specified postprocedural states (ICD-10) Family History Aunt Family history of cancer Grandmother Family history of cancer Grandfather Family history of cancer Other Family history of diabetes mellitus Family history of hypertension Family history of myocardial infarction Social History Within the past year, how often did you have a drink containing alcohol: 2-3 times a week Within the past year, how many standard drinks containing alcohol did you have on a typical day: 5 or 6 Within the past year, how often did you have six or more drinks on one occasion: weekly Total score: 7 Score interpretation: A score of 4 or more indicates drinking is likely to affect patient's safety. 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 Highest level of school completed/degree received: Associate degree: academic program Meds Home Medications and Allergies Home Medications ?Medication ?Instructions ?Recorded ?Confirmed ?Type ascorbic acid (vitamin C) 250 mg 250 mg PO DAILY 06/22/23 05/05/25 History tablet atenolol 50 mg-chlorthalidone 25 1 tab PO DAILY 06/22/23 05/05/25 History mg tablet diclofenac sodium 75 mg 75 mg PO BID 06/22/23 05/05/25 History tablet,delayed release testosterone 1.62 % (20.25 mg/1.25 1 packet transdermal QAM 06/22/23 05/05/25 History gram) transdermal gel packet (AndroGel) vitamin B comp and C no.3 15 mg-10 1 cap PO DAILY 06/22/23 05/05/25 History mg-50 mg-5 mg-300 mg capsule (B Complex Plus Vitamin C) methocarbamol 750 mg tablet 750 mg PO TID 08/31/23 05/05/25 History hydrocodone 7.5 mg-acetaminophen See Rx Instructions .Route 07/16/24 05/05/25 Rx 325 mg tablet .COMPLEX PRN pain #20 tabs naloxone 4 mg/actuation nasal 4 mg intranasal Q3M PRN opioid 07/17/24 05/05/25 Rx spray (Narcan) overdose #2 ea zonisamide 50 mg capsule 100 mg (2 x 50 mg) PO DAILY #60 02/10/25 05/05/25 Rx caps Allergies Allergy/AdvReac Type Severity Reaction Status Date / Time No Known Drug Allergies Allergy Verified 05/05/25 11:46 Exam Constitutional Documenting provider has reviewed patient's vital signs: yes Common normals: no apparent distress, oriented x3 and alert General appearance: cooperative HENMT Common normals: normocephalic, hearing grossly normal bilaterally and moist oral mucous membranes Head and scalp: normocephalic Eye Common normals: PERRL Pupil: PERRL Neck & C-Spine Common normals: full ROM General: normal visual inspection Chest Common normals: inspection of chest normal Respiratory Common normals: normal respiratory effort, no retractions and no use of accessory muscles Back & Pelvis Lumbar spine/lower back: pain with ROM, lumbar spinal tenderness Lumbar spinal tenderness location: L3, L4 and L5 and straight leg raise negative bilaterally Other: strength 5/5 in BLE sensation intact BLE positive facet loading Extremity Common normals: normal to inspection and full ROM Neuro Common normals: oriented x3 Sensorium/orientation: alert Psych Common normals: mental status grossly normal, thought process normal, cooperative, affect normal, speech normal and activity/motor behavior normal Speech: normal speech Thought process: normal thought process Results Additional Findings Additional findings: If on a controlled substance or opioids, I have checked an [place] report on this patient and there are no aberrancies noted in the prescribing history.??If on a controlled substance or opioid a drug screen was completed and reviewed within the last year, and if there has not been a drug screen completed we ordered one today to monitor higher risk, state monitored pain medication use. As part of providing excellent, safe, comprehensive care, the following was completed at our patient's visit: 1. A medication reconciliation and review to ensure accurate knowledge of current/active medications, including asking our patients to inform us about any wpwv-mrv-uvwqeph medications or herbal remedies/nutritional supplements/alternative remedies. 2. A review to specifically ensure our patients have had annual screening for screening for depression, screening for tobacco use, and screening for unhealthy alcohol use. For concerning screenings had a discussion with the patient, provided patient education, and recommended follow-up with primary care provider when appropriate. If patient noted with a risk of falling, they received education on strength, gait, and balance training to prevent future risk of falling. Portions of this note may have been carried over from the previous visit and updated as appropriate. Please note this office utilizes paper charting in addition to the electronic medical record. A list of current medications, vitals, and PMH is available there as the clinical staff outside of myself do not have access to [employer] charting during the clinic day operations. As part of providing quality comprehensive care the current medications, vitals, and PMH were reviewed in the paper chart. Assessment and Plan Assessment and Plan (1) Lumbar spondylosis: Assessment and Plan: prior bilateral L4-5 L5-S1 facet RFA provided at least 50% improvement for at least 6 months. on exam today pt noting facet mediated pain higher than previous RFA levels, therefore before repeating bilateral L4-5 L5-S1 facet RFA we will trial bilateral L3-4 L4-5 facet medial branch block x2 for facet mediated pain in consideration of RFA Plan The patient has had over 3 months of moderate to severe low back pain with functional impairment and inadequate response to conservative care including NSAIDS (unless there are contraindication such as concurrent blood thinners), multiple oral or topical pain medications, and home exercise program/physical therapy.? Patient has completed >6 weeks of guided home exercise program and/or formal physical therapy program without relief of their symptoms.? I have reviewed the imaging of the lumbar spine and no red flags were identified.? The Oswestry Disability Index was completed, and the patient scored a 38%.? bilateral L3-4 L4-5 MBB x2 under fluoroscopy in consideration of RFA for facet mediated pain, if pt notes less than 80% improvement while aneshtetized we will repeat bilateral L4-5 L5-S1 facet RFA maintain current medication regimen, denies side effects f/u after MBB
--- OUTSIDE RECORDS SUMMARY | 2025-07-31 15:40 | XMS_ITS | Clinical Summary ---
Author Organization [facility] Healthcare Address [address] [place] [address] Care Team Providers Care Piano Builder Name Role Phone Kell Jack MD Primary Care Provider [phone] Allergies No known active allergies Medications MedicationSigDispense [...] PUMPS TO CLEAN, DRY, INTACT SKIN EVERY UWZWSSL0701/30/2024ctive doxepin (SINEquan) 10 MG capsule Indications:JOSÉ (obstructive sleep apnea),Hypersomnia,PLMD (periodic limb movement disorder)TAKE 1 TO 2 CAPSULES BY MOUTH EVERY DAY AT BEDTIME 180 capsule 5Active Active Problems ProblemNoted DateDiagnosed DatePLMD (periodic limb movement disorder)05/15/2024 Punmmmtutqj31/04/2024OSA (obstructive sleep apnea)05/15/20240318Hkuaftz96/04/2024 Family History Medical HistoryRelationNameCommentsDiabetesFatherHeart diseaseFatherRelationName StatusCommentsFather Social History Tobacco UseTypesPacks/DayYears UsedDateSmoking Tobacco: NeverSmokeless Tobacco: NeverAlcohol UseStandard Drinks/WeekCommentsYes7 (1 standard drink = 0.6 oz pure alcohol)Sex and Gender InformationValueDate RecordedSex Assigned at BirthNot on fileLegal DxnEvvb9401/30/2024 3:33 PM EDTGender IdentityNot on fileSexual OrientationNot on file Last Filed Vital Signs Vital SignReadingTime TakenCommentsBlood Lwysvpis866/8405/15/2024 3:36 PM EDT Wzbjt602505/15/2024 3:36 PM EDTTemperature--Respiratory Iyfc985302/21/2024 3:27 PM EDTOxygen Ngfztekjpz02%05/15/2024 3:36 PM EDTInhaled Oxygen Concentration-- Pwcmnn06.8 kg (220 lb)02/21/2024 3:27 PM QUNToxlmq142.7 cm (5' 8 )05/15/2024 3:36 PM EDTBody Mass Index33.45002/21/2024 3:27 PM EDT Plan of Treatment Health MaintenanceDue DateLast DoneCommentsCT Ofhctpjafqmp1970Colonoscopy 1970Colorectal Cancer Jzcbnswsu1970FIT-DNA1970FIT1970 FOBT1970 9696Uovhpxyxnjnuk1970COVID-19 Vaccine ( season) 5109/20/2021, 08/03/2021, 10/21/2020, Additional history existsInfluenza Vaccine (#1)05/12/2025Pneumococcal Vaccine: Pediatrics (0 to 5 Years) and At- Risk Patients (6 to 64 Years)Aged OutNo longer eligible based on patient's age [place] [address] Care Teams Team MemberRelationshipSpecialtyStart DateEnd Date Kell Jack MD PCP - GeneralFamily Medicine02/21/24
--- OUTSIDE RECORDS SUMMARY | 2025-07-31 15:40 | XMS_ITS | Patient Health Record ---
Author Organization [facility] [place] Address [address] [place] [address] Care Team Providers Care Coin Wrapping Machine Operator Name Role Phone Kell Jack MD Primary Care Provider Unavailab le Reason For Referral No Information Plan Of [...] Coverage End Date [employer] [address] [place] [address] [id number] Manuel Burgos Self - patient is the insured [employer] ACC[employer] PPO PLUS LOCAL [address]AN[address] [place] [address] [id number], EricaSpouse - patient is the spouse of the insured
--- OUTSIDE RECORDS SUMMARY | 2025-07-31 15:41 | XMS_ITS | Clinical Summary ---
Author Organization [employer] tem Address [id number] [address] [place] [address] Care Team Providers Care First Aid Director Name Role Phone Kell Jack MD Primary Care Provider [phone] Allergies No known active allergies Medications MedicationSigDispense [...] BY MOUTH ONCE DAILY NEEDED FOR ERECTILE DXGRJMLTEAE26/03/2022 Active testosterone (ANDROGEL) 20.25 mg/1.25 gram (1.62 %) gel in metered-dose pump APPLY 2 PUMPS TO SKIN EVERY LDSEBUS1606/23/2022ctive omega 6-tkj-ujw-fish oil (Fish OiL) 300-1,000 mg capsule Take by mouth.Active ascorbic acid, vitamin C, (ascorbic acid) 250 mg tablet,chewable Chew and swallow.Active ergocalciferol, vitamin D2, (VITAMIN D2 ORAL) Take by mouth.Active B-complex with vitamin C tablet Take 1 tablet by mouth in the morning.Active Active Problems ProblemNoted DateDiagnosed OzjwNduzmhhv97/26/0799Hnftcrfllaku19/26/2022 Family History Medical HistoryRelationNameCommentsDiabetesFatherHeart diseaseFatherCancer Maternal AuntNo Known ProblemsMotherCancerPaternal GrandfatherHodgkin's lymphoma Paternal GrandfatherCancerPaternal GrandmotherLung cancerPaternal Grandmother RelationNameStatusCommentsFatherAliveMaternal AuntDeceasedMotherDeceasedPaternal GrandfatherDeceasedPaternal GrandmotherDeceased Social History Tobacco UseTypesPacks/DayYears UsedDateSmoking Tobacco: NeverSmokeless Tobacco: Never Tobacco Cessation:Counseling Given: Not Answered Alcohol UseStandard Drinks/WeekCommentsYes0 (1 standard drink = 0.6 oz pure alcohol)5-7 WKLY of whateverChildcareAnswerDate RecordedChildcareUnknown 02/20/2019EmploymentAnswerDate XjayxuiwJlmagkegbrZbgfzif75/12/2019Hunger ScreeningAnswerDate RecordedWithin the past 12 months we worried whether our food would run out before we got money to buy more.Never True07/27/2023Food Insecurity - InabilityNot on file07/27/2023urpose - LifeAnswerDate Recorded Purpose and direction in rmnwBgiwztk65/11/2021ex and Gender InformationValue Date RecordedSex Assigned at ZwhepSoqq92/20/2022 3:24 PM EDTLegal SexMale 04/16/2015 12:12 PM EDTGender GabdhhwsLvvj04/20/2022 3:24 PM EDTSexual OrientationNot on file Last Filed Vital Signs Vital SignReadingTime TakenCommentsBlood Loeubamp891/9407/27/2023 2:29 PM EST Nmozl849407/27/2023 2:29 PM ZDFVrweyiscuiy75.9 ??C (98.4 ??F)07/06/2022 10:19 AM EDTRespiratory Rate--Oxygen Saturation--Inhaled Oxygen Concentration--Weight 100.2 kg (221 lb)07/27/2023 2:29 PM KPYKdmhqn898.2 cm (5' 7 )07/27/2023 2:29 PM ESTBody Mass Index34.6107/27/2023 2:29 PM EST Plan of Treatment Health MaintenanceDue DateLast DoneCommentsDepression Pkeewzadz27/30/1982Zoster (Shingles) Vaccine (1 of 2)02/08/2020Adult BMI Halgajcrt66 Tobacco Yklytdkxl41OVID-19 Vaccine ( season) , 08/03/2021, 10/21/2020, Additional history existsInfluenza Eyqyany61/11/2008DTaP,Tdap and Td Vaccines (2 - Td or Tdap)05/09/2027 05/09/20177627Qfbcqjngjhl69 Medical Devices Not on file Procedures Procedure [...] MemberRelationshipSpecialtyStart DateEnd Date Kell Jack MD [address] [place] [address] [facility]
--- OUTSIDE RECORDS SUMMARY | 2025-07-31 15:41 | XMS_ITS | Clinical Summary ---
Author Organization [facility] Address [address] [place] [address] Care Team Providers Care Plastic Finisher Name Role Phone Kell Jack MD Primary Care Provider [phone] Medications MedicationSigDispense QuantityRefillsLast FilledStart DateEnd DateStatus diclofenac EC [address] tablet 02/05/2021ctive Testosterone 20.25 MG/ACT (1.62%) Gel gel APPLY 1 PUMP TOPICALLY EACH DOCTLOI8101/09/2021ctive atenolol-chlorthalidone 50-25 MG tablet 02/05/2021ctive Multiple Vitamins-Minerals [...] Problems ProblemNoted DateDiagnosed DateObesity (BMI 30.0-34.9)03/17/2021ssential (primary) dfcevphfngoz85/07/2021 Social History Tobacco UseTypesPacks/DayYears UsedDateSmoking Tobacco: NeverSmokeless Tobacco: NeverAlcohol UseStandard Drinks/WeekCommentsYes5 (1 standard drink = 0.6 oz pure alcohol)5 beers/weekSex and Gender InformationValueDate RecordedSex Assigned at BirthNot on fileLegal JskDgzh2502/09/2021 11:59 AM EDTGender IdentityNot on file Sexual OrientationNot on file Last Filed Vital Signs Vital SignReadingTime TakenCommentsBlood Ydyxaikr863/9008 3:41 PM EDT denies dizziness/lightheadedness.Lqpwd4948 3:41 PM EDTTemperature-- Respiratory Bgcf0901 3:41 PM EDTOxygen Hnyywghgns28%05/07/2021 3:41 PM EDTInhaled Oxygen Concentration--Ejrcfo25.9 kg (218 lb)04/27/2021 11:09 AM EDT Cpalbf438.2 cm (5' 7 )04/27/2021 11:09 AM EDTBody Mass Index34.1408 11:09 AM EDT Plan of Treatment Health MaintenanceDue DateLast DoneCommentsHEPATITIS C VIRUS DSSAMZAQT1970 HIV SCREENING HPITTBYDBM64/30/1985HEP B VACCINE (1 of 3 - 19+ 3-dose series) 1989LIPID NFVPSRILS39/30/2010COLORECTAL CANCER SCREENING DISCUSSION 2015PNEUMOCOCCAL VACCINE SERIES (1 of 1 - PCV)02/08/2020ZOSTER (SHINGLES) VACCINE (1 of 2)02/08/2020PROSTATE CANCER SCREENING NDBUTSQDVL82/30/2025OVID-19 VACCINE (1 - 2024- season)2025INFLUENZA VACCINE (#1)/11/2008 OSDJETG36TDAP (ADULT)Tmwruxghc59/29/2017 Insurance Care Teams Team MemberRelationshipSpecialtyStart DateEnd Date Kell Jack MD [facility]
== END 2025-07-31 15:36 | disposition home or self-care (01) ==
LOC: PM 15:35
PROVIDERS: PCP Family Medicine; Visit Provider Nurse Practitioner
DX: M47.816 Spondylosis without myelopathy or radiculopathy, lumbar region (principal)
CPT/HCPCS: G0463

== ENCOUNTER 2025-08-04 12:02 | Day surgery (SDC) | payer BC, SELFPAY ==
--- OUTSIDE RECORDS SUMMARY | 2025-08-04 12:07 | XMS_ITS | Clinical Summary ---
Author Organization [facility] Address [address] [place] [address] Care Team Providers Care Agency Cashier Name Role Phone Kell Jack MD Primary Care Provider Medications MedicationSigDispense QuantityRefillsLast FilledStart DateEnd DateStatus diclofenac EC [address] tablet 02/05/2021ctive Testosterone 20.25 MG/ACT (1.62%) Gel gel APPLY 1 PUMP TOPICALLY EACH EYNHYAR1201/09/2021ctive atenolol-chlorthalidone 50-25 MG tablet 02/05/2021ctive Multiple Vitamins-Minerals [...] Problems ProblemNoted DateDiagnosed DateObesity (BMI 30.0-34.9)03/17/2021ssential (primary) waujrwttqnnj34/07/2021 Social History Tobacco UseTypesPacks/DayYears UsedDateSmoking Tobacco: NeverSmokeless Tobacco: NeverAlcohol UseStandard Drinks/WeekCommentsYes5 (1 standard drink = 0.6 oz pure alcohol)5 beers/weekSex and Gender InformationValueDate RecordedSex Assigned at BirthNot on fileLegal CmyScau2102/09/2021 11:59 AM EDTGender IdentityNot on file Sexual OrientationNot on file Last Filed Vital Signs Vital SignReadingTime TakenCommentsBlood Fiejptll671/9008 3:41 PM EDT denies dizziness/lightheadedness.Nrltq2016 3:41 PM EDTTemperature-- Respiratory Zdzg5441 3:41 PM EDTOxygen Jmwsxfvsbp34%05/07/2021 3:41 PM EDTInhaled Oxygen Concentration--Ryujvl30.9 kg (218 lb)04/27/2021 11:09 AM EDT Qpuogv570.2 cm (5' 7 )04/27/2021 11:09 AM EDTBody Mass Index34.1408 11:09 AM EDT Plan of Treatment Health MaintenanceDue DateLast DoneCommentsHEPATITIS C VIRUS YUVCLLPTT1970 HIV SCREENING YODPQNTEOX82/30/1985HEP B VACCINE (1 of 3 - 19+ 3-dose series) 1989LIPID FOTHVQQML06/30/2010COLORECTAL CANCER SCREENING DISCUSSION 2015PNEUMOCOCCAL VACCINE SERIES (1 of 1 - PCV)02/08/2020ZOSTER (SHINGLES) VACCINE (1 of 2)02/08/2020PROSTATE CANCER SCREENING GWMDOKOXVK88/30/2025OVID-19 VACCINE (1 - 2024- season)2025INFLUENZA VACCINE (#1)/11/2008 QPDIAQU86TDAP (ADULT)Mygspvsid64/29/2017 Insurance Care Teams Team MemberRelationshipSpecialtyStart DateEnd Date Kell Jack MD [facility]
--- OUTSIDE RECORDS SUMMARY | 2025-08-04 12:07 | XMS_ITS | Clinical Summary ---
Author Organization [facility] Healthcare Address [address] [place] [address] Care Team Providers Care Adjunct Trainer Name Role Phone Kell Jack MD Primary Care Provider [phone] Allergies No known active allergies Medications MedicationSigDispense [...] PUMPS TO CLEAN, DRY, INTACT SKIN EVERY SMPFLZF3901/30/2024ctive doxepin (SINEquan) 10 MG capsule Indications:JOSÉ (obstructive sleep apnea),Hypersomnia,PLMD (periodic limb movement disorder)TAKE 1 TO 2 CAPSULES BY MOUTH EVERY DAY AT BEDTIME 180 capsule 5Active Active Problems ProblemNoted DateDiagnosed DatePLMD (periodic limb movement disorder)05/15/2024 Mxjbnrbduaz78/04/2024OSA (obstructive sleep apnea)05/15/20247858Mynydab84/04/2024 Family History Medical HistoryRelationNameCommentsDiabetesFatherHeart diseaseFatherRelationName StatusCommentsFather Social History Tobacco UseTypesPacks/DayYears UsedDateSmoking Tobacco: NeverSmokeless Tobacco: NeverAlcohol UseStandard Drinks/WeekCommentsYes7 (1 standard drink = 0.6 oz pure alcohol)Sex and Gender InformationValueDate RecordedSex Assigned at BirthNot on fileLegal VzlFcqz6701/30/2024 3:33 PM EDTGender IdentityNot on fileSexual OrientationNot on file Last Filed Vital Signs Vital SignReadingTime TakenCommentsBlood Rjhhhmxw639/8405/15/2024 3:36 PM EDT Kidul445105/15/2024 3:36 PM EDTTemperature--Respiratory Irfn176402/21/2024 3:27 PM EDTOxygen Ocirzjdgwl57%05/15/2024 3:36 PM EDTInhaled Oxygen Concentration-- Vaqsiu70.8 kg (220 lb)02/21/2024 3:27 PM CEFXbjwta782.7 cm (5' 8 )05/15/2024 3:36 PM EDTBody Mass Index33.45002/21/2024 3:27 PM EDT Plan of Treatment Health MaintenanceDue DateLast DoneCommentsCT Geustflfplqb1970Colonoscopy 1970Colorectal Cancer Zrlfimpyo1970FIT-DNA1970FIT1970 FOBT1970 7252Dklfqygrjxhyc1970COVID-19 Vaccine ( season) 5109/20/2021, 08/03/2021, 10/21/2020, Additional history existsInfluenza Vaccine (#1)05/12/2025Pneumococcal Vaccine: Pediatrics (0 to 5 Years) and At- Risk Patients (6 to 64 Years)Aged OutNo longer eligible based on patient's age [place] [address] Care Teams Team MemberRelationshipSpecialtyStart DateEnd Date Kell Jack MD PCP - GeneralFamily Medicine02/21/24
--- OUTSIDE RECORDS SUMMARY | 2025-08-04 12:07 | XMS_ITS | Clinical Summary ---
Author Organization [employer] tem Address [id number] [address] [place] [address] Care Team Providers Care Die Repair Machinist Name Role Phone Kell Jack MD Primary Care Provider [phone] Allergies No known active allergies Medications MedicationSigDispense [...] BY MOUTH ONCE DAILY NEEDED FOR ERECTILE ACVQKUKWXAJ63/03/2022 Active testosterone (ANDROGEL) 20.25 mg/1.25 gram (1.62 %) gel in metered-dose pump APPLY 2 PUMPS TO SKIN EVERY DVAUNCY9106/23/2022ctive omega 1-qam-obx-fish oil (Fish OiL) 300-1,000 mg capsule Take by mouth.Active ascorbic acid, vitamin C, (ascorbic acid) 250 mg tablet,chewable Chew and swallow.Active ergocalciferol, vitamin D2, (VITAMIN D2 ORAL) Take by mouth.Active B-complex with vitamin C tablet Take 1 tablet by mouth in the morning.Active Active Problems ProblemNoted DateDiagnosed VxviBuxpojzg99/26/2197Qvslmdvzcbbu18/26/2022 Family History Medical HistoryRelationNameCommentsDiabetesFatherHeart diseaseFatherCancer Maternal AuntNo Known ProblemsMotherCancerPaternal GrandfatherHodgkin's lymphoma Paternal GrandfatherCancerPaternal GrandmotherLung cancerPaternal Grandmother RelationNameStatusCommentsFatherAliveMaternal AuntDeceasedMotherDeceasedPaternal GrandfatherDeceasedPaternal GrandmotherDeceased Social History Tobacco UseTypesPacks/DayYears UsedDateSmoking Tobacco: NeverSmokeless Tobacco: Never Tobacco Cessation:Counseling Given: Not Answered Alcohol UseStandard Drinks/WeekCommentsYes0 (1 standard drink = 0.6 oz pure alcohol)5-7 WKLY of whateverChildcareAnswerDate RecordedChildcareUnknown 02/20/2019EmploymentAnswerDate JzrbtyukHlzvjsequdUatszfu99/12/2019Hunger ScreeningAnswerDate RecordedWithin the past 12 months we worried whether our food would run out before we got money to buy more.Never True07/27/2023Food Insecurity - InabilityNot on file07/27/2023urpose - LifeAnswerDate Recorded Purpose and direction in refxWkjaxif12/11/2021ex and Gender InformationValue Date RecordedSex Assigned at ItkauEdjq72/20/2022 3:24 PM EDTLegal SexMale 04/16/2015 12:12 PM EDTGender GklbpqzpAxkg82/20/2022 3:24 PM EDTSexual OrientationNot on file Last Filed Vital Signs Vital SignReadingTime TakenCommentsBlood Lebfwwwk701/9407/27/2023 2:29 PM EST Eswbe701107/27/2023 2:29 PM GGQHmmcyadfpuv56.9 ??C (98.4 ??F)07/06/2022 10:19 AM EDTRespiratory Rate--Oxygen Saturation--Inhaled Oxygen Concentration--Weight 100.2 kg (221 lb)07/27/2023 2:29 PM LMFRpiidj898.2 cm (5' 7 )07/27/2023 2:29 PM ESTBody Mass Index34.6107/27/2023 2:29 PM EST Plan of Treatment Health MaintenanceDue DateLast DoneCommentsDepression Hmafcgcik16/30/1982Zoster (Shingles) Vaccine (1 of 2)02/08/2020Adult BMI Xasyfbbfw89 Tobacco Pyhxtiknn02OVID-19 Vaccine ( season) , 08/03/2021, 10/21/2020, Additional history existsInfluenza Htbutle41/11/2008DTaP,Tdap and Td Vaccines (2 - Td or Tdap)05/09/2027 05/09/20170602Whcacddyhsp10 Medical Devices Not on file Procedures Procedure [...] MemberRelationshipSpecialtyStart DateEnd Date Kell Jack MD [address] [place] [address] [facility] - [facility]/31/22
--- OUTSIDE RECORDS SUMMARY | 2025-08-04 12:11 | XMS_ITS | CCD ---
Author Organization [facility] Care Team Providers Care Cornice Maker Name Role Phone Efrain Bowling MD Primary [...] Unavailable Efrain Bowling MD Primary Care Provider Gurinder FERMIN, Luis Stallings Attending Unavailable Gurinder FERMIN, Luis Stallings Attending Unavailable Gurinder FERMIN, Luis Stallings Attending Unavailable Chata Page Attending Unavailable Chata Page Attending Unavailable Efrain Bowling MD Primary Care Provider Christian Pablo DO Attending Provider [phone] Mina Villagomez DO Attending Provider Efrain Bowling MD Attending Provider Allergies Allergy ClassificationReported Allergen(s)Allergy TypeDate of OnsetReaction(s) Facility (2 sources)patient allergy list reviewed by nurse or physiciaPropensity to adverse lbklebcle29-32-3985Vbighka:[email or web address] Other (2 sources)Allergies ReconciledPropensity to adverse reactionsFloyd Memorial Hospital And Health ServicesOrteq Other Medications Current Medications MedicationDrug Class(es)DatesSig (Normalized)Sig (Original)Amoxicillin (1 source)Penicillin-class AntibacterialAmoxicillin Activeatenolol 50 mg / chlorthalidone 25 mg oral tablet (20 sources)Thiazide-like Diuretic, beta-Adrenergic BlockerStart: 92-20-1807fdwp 1 tablet by mouth once dailyAtenolol-Chlorthalidone 50-25 mg tablet Active 0 .ROUTE .COMPLEX May 15, 2024 12:22pm TAKE 1 TABLET BY MOUTH EVERY DAY Start: 75-73-2157vtfn 1 tablet by mouth once dailyatenolol-chlorthalidone (Tenoretic) 50-25 MG tablet Take 1 tablet by mouth Daily 02/15/2024 ActiveStart: 11-20-2023 End: 60-75-0194soaq 1 tablet by mouth once dailyAtenolol-Chlorthalidone 50-25 mg tablet Active 0 .ROUTE .COMPLEX 90 May 01, 2025 12:51pm TAKE 1 TABLET BY MOUTH EVERY DAY Complies with drug therapyStart: 11-20-2023 End: 01-77-7934uuyf 1 tablet by mouth once dailyAtenolol-Chlorthalidone 50-25 mg tablet Discontinued 0 .ROUTE .COMPLEX 90 November 20, 2023 12:09pm May 15, 2024 12:23pm TAKE 1 TABLET BY MOUTH EVERY DAYStart: 26-91-5112jqwi 1 tablet by mouth once dailyAtenolol-Chlorthalidone Active 0 .ROUTE .COMPLEX 90 November 20, 2023 1:09pm TAKE 1 TABLET BY MOUTH EVERY DAYStart: 11-20-2023 End: 00-31-3014cpiz 1 tablet by mouth once dailyAtenolol-Chlorthalidone 50-25 mg tablet Discontinued 1 TAB PO Daily November 19, 2023 11:00pm November 20, 2023 12:09pmStart: 61-81-5681cwoi 1 tablet by mouth once dailyAtenolol-Chlorthalidone 50-25mg atenoloL-chlorthalidone 50-25mg, 1 (one) Tablet daily # 90, 08/22/2022, Ref. x1. Active oral daily for 90 *Pick strength-form from [employer] for eRX* Aug, ActiveStart: 01-17-0328hrwgvsvj-chlorthalidone 50-25 MG tabletB Complex-C (b complex-vitamin c) tablet (3 sources)take 1 tablet by mouth in the morningB Complex-C (b complex-vitamin c) tablet Take 1 tablet by mouth in the morning. Activecyclobenzaprine hydrochloride 10 mg oral tablet (7 sources)Muscle RelaxantStart: 86-18-1485isdc 1 tablet by mouth three times daily as neededcyclobenzaprine 10mg cyclobenzaprine 10mg, 1 (one) Tablet three times daily, as needed # 30, 05/31/2022, No Refill. Active oral three times daily, as needed for 0 *Reorder from [employer] for eRx and Interaction Alerts* May, ActiveStart: 02-10-2021 End: 70-46-0262lsvd 1 tablet by mouth at bedtime as needed for muscle spasms cyclobenzaprine 10 MG tablet Indications: Chronic pain syndrome , Myofascial pain Take 1 tablet by mouth at bedtime as needed for Muscle spasms. 30 tablet 2 04/16/2021 05/16/2021 ActivecycloSPORINE 0.5 mg/ml ophthalmic suspension (3 sources)Calcineurin Inhibitor ImmunosuppressantStart: 94-62-4745cqnq 1 drop(s) into the eye(s) in the morningRestasis 0.05 % ophthalmic emulsion Administer 1 drop into both eyes in the morning and 1 drop before bedtime. 01/11/2024 Activediclofenac sodium 75 mg delayed release oral tablet (20 sources)Nonsteroidal Anti-inflammatory DrugStart: 12-25-2023 End: 12-63-2271ussp 1 tablet by mouth twice dailyDiclofenac Sodium 75 mg tablet,delayed release (DR/EC) Active 0 .ROUTE .COMPLEX 60 July 1:41pm TAKE 1 TABLET BY MOUTH TWICE A DAY Complies with drug therapyStart: 02-05-2021 End: 88-16-4525fjcf 1 tablet by mouth twice dailyDiclofenac Sodium 75 mg tablet,delayed release (DR/EC) Discontinued 75 MG PO Twice daily December 24, 2023 11:00pm December 25, 2023 11:59amdocosahexaenoic acid 120 mg / eicosapentaenoic acid 180 mg oral capsule (3 sources)omega-3 1000 MG capsule capsule Take by mouth Kccizi60 ml methocarbamol 100 mg/ml injection (7 sources)Muscle RelaxantStart: 66-38-8507eonljg 1 g by intramuscular injection every eight [...] mg oral tablet (6 sources)Sympathomimetic Amine AnorecticStart: 60-35-3654Rfnijtiaboa (Adipex- P) 37.5 mg tablet Active 37.5 MG PO Daily 30 July 22, 2025 12:00am Cl ass 1 obesity with body mass index (BMI) of 34.0 to 34.9 in adult Obesity, class 1 Body mass index [BMI] 34.0-34.9, adult must administer 30 minutes before or 1- 2 hours after breakfast Complies with drug therapyStart: 09-16-2024 End: 07-46-4414hnkw 1 tablet by mouth once daily before breakfastPhentermine 37.5 mg tablet Discontinued 37.5 MG PO Daily September 16, 2024 12:00am September 16, 2024 3:23pm FreeTextSi tablet before breakfast Orally Once a day; Note: Source Status: Refill; Refills: 0; Qty: 30 Tablet; Provider: Tawnya Monet Start: 86-03-8788nzie 1 tablet by mouth once daily before breakfastAdipex-P 37.5 MG 1 tablet before breakfast Orally Once a day for 30 days Aug, Active Start: 33-50-0612gaga 1 tablet by mouth once daily before breakfastAdipex-P 37.5 MG 1 tablet before breakfast Orally Once a day for 30 days Jul, Active tadalafil 20 mg oral tablet (5 sources)Phosphodiesterase 5 InhibitorStart: 00-78-7033eubk 1 tablet by mouth once as neededTadalafil 20 mg tablet Active 20 MG PO Once September 16, 2024 12:00am FreeTextSi tablet prn; Note: Source Status: Taking; Provider: Tawnya Castorena ( ) Complies with drug therapyCialis 20 MG 1 tablet prn Crdvqd1133 mg testosterone 0.0162 mg/mg topical gel (11 sources)AndrogenStart: 32-42-3271Vmrmncsxdxdr (Androgel) 1.62 % (20.25 mg/1.25 gram) gel in packet Active 1 PACKET TRANSDERML Daily September 16, 2024 12:00am apply to max area of ONE upper arem and shoulder Complies with drug therapyStart: 43-51-5532Zspvbdkdgeez 20.25 MG/ACT (1.62%) gel APPLY 2 PUMPS TO CLEAN, DRY, INTACT SKIN EVERY MORNING 01/30/2024 ActiveStart: 87-97-7365IcozuMzw 1.62 % (20.25mg/1.25 gr AndroGeL 1.62 % (20.25mg/1.25 gr, 2 pumps daily , 05/31/2022, No Refill. Active transdermal for 0 *Reorder from [employer] for eRx and Interaction Alerts* May, ActiveStart: 61-14-2888Gegmpnhairor 20.25 MG/ACT (1.62%) Gel gel APPLY 1 PUMP TOPICALLY EACH MORNING 0 01/09/2021 Active Testosterone (Androgel) 1.62 % (20.25 mg/1.25 gram) gel in packet (2 sources)Start: 90-95-0363Xzjblctghjly (Androgel) 1.62 % (20.25 mg/1.25 gram) gel in packet Active 1 PACKET TRANSDERML Daily September 16, 2024 12:00am apply to max area of ONE upper arem and shoulderzonisamide 100 mg oral capsule (3 sources)Anti-epileptic AgentStart: 24-82-6453vllh 1 capsule by mouth once dailyZonisamide 100 mg capsule Active 100 MG PO Daily September 16, 2024 12:00am Complies with drug therapy Completed/Discontinued Medications MedicationDrug Class(es)DatesSig (Normalized)Sig (Original)benzonatate 200 mg oral capsule (2 sources)Non-narcotic AntitussiveStart: 10-16-2024 End: 73-91-8363yvkl 1 capsule by mouth three times daily as needed for cough Benzonatate 200 mg capsule Discontinued 200 MG PO Three times daily as needed for cough 30 10 0 October 16, 2024 12:00am July 22, 2025 1:32pm Influenza due to influenza virus, type A, humandoxepin hydrochloride 10 mg oral capsule (6 sources)Tricyclic AntidepressantStart: 09-16-2024 End: 55-56-0577qjfp 2 capsules by mouth once dailyDoxepin 10 mg capsule Discontinued 20 MG PO Daily September 16, 2024 12:00am July 22, 2025 1:33pm Start: 14-31-1901pypw 1 capsule by mouth once daily at bedtimedoxepin (SINEquan) 10 MG capsule Indications: JOSÉ (obstructive sleep apnea) , Hypersomnia , PLMD (periodic limb movement disorder) TAKE 1 TO 2 CAPSULES BY MOUTH EVERY DAY AT BEDTIME 180 capsule 1 03/18/2024 ActiveDULoxetine 30 mg delayed release oral capsule (20 sources)Serotonin and Norepinephrine Reuptake InhibitorStart: 12-20-2023 End: 69-76-1498qfoh 1 capsule by mouth once dailyDuloxetine 30 mg capsule,delayed release(DR/EC) Discontinued 0 .ROUTE .COMPLEX 90 0 December 04, 2024 9:23am July 22, 2025 1:41pm TAKE 1 CAPSULE BY MOUTH EVERY DAYStart: 12-20-2023 End: 93-63-3491koyq 1 capsule by mouth once dailyDuloxetine 30 mg capsule,delayed release(DR/EC) Discontinued 30 MG PO Daily December 19, 2023 11:00pmApril 2023 8:30amStart: 02-18-2021 End: 37-92-3669phpu 1 capsule by mouth once dailyDULoxetine (Cymbalta) [address] Particles capsule DR Indications: Lumbar radiculopathy , Spinal stenosis of cervical region , Chronic pain syndrome Take 1 capsule by mouth daily. 30 capsule 1 02/18/2021 03/17/2021 Discontinued (Reorder)Start: 02-11-2021 End: 02-69-7261mmct 1 capsule by mouth once dailyDULoxetine [address] Particles capsule DR Indications: Lumbar radiculopathy , Spinal stenosis of cervical region , Chronic pain syndrome Take 1 capsule by mouth daily. 30 capsule 2 03/17/2021 Dvzymc40 ml lidocaine hydrochloride 20 mg/ml injection (2 sources)Antiarrhythmic, Amide Local AnestheticStart: 04-16-2021 End: 67-69-1137kyxjtybof 2 % injection 100 mgStart: 04-16-2021 End: 79-36-8280wpjjjvchg 2 % injection 100 mglidocaine 1% (PF) (XYLOCAINE MPF) 10 mL syringe (2 sources)Start: 02-16-2021 End: 61-78-4920jgwdbygrx 1% (PF) (XYLOCAINE MPF) 10 mL syringeoseltamivir 75 mg oral capsule (2 sources)Neuraminidase InhibitorStart: 10-16-2024 End: 20-08-4757cguk 1 capsule by mouth twice dailyOseltamivir (Tamiflu) 75 mg capsule Discontinued 75 MG PO Twice daily 10 5 0 October 16, 2024 12:00am July 22, 2025 1:33pm Influenza due to influenza virus, type A, human tiZANidine 4 mg oral tablet (3 sources)Central alpha-2 Adrenergic AgonistStart: 09-16-2024 End: 71-85-8916onpz 1 tablet by mouth once daily at bedtime as neededTizanidine 4 mg tablet Discontinued 4 MG PO Daily at bedtime as needed September 16, 2024 12:00am July 22, 2025 1:34pm Problems Active Problems Problem ClassificationProblemDateDocumented DateEpisodic/ChronicDeficiency and other anemia (4 sources)Anemia; Translations: [Anemia, unspecified]49-26-7225Fwiigpia Deficiency and other anemia (4 sources)Iron deficiency anemia; Translations: [Iron deficiency anemia, unspecified]82-29-1146WtwvugnnWjncmcqgx of lipid metabolism (2 sources)Mixed hyperlipidemia; Translations: [Mixed hyperlipidemia]Chronic Essential hypertension (4 sources)Essential hypertension; Translations: [Essential (primary) hypertension]Onset: 204867-07-1758ZnufomnXhvgeylsm (3 sources)Influenza due to Influenza A virus; Translations: [Influenza due to other identified influenza virus with other respiratory manifestations] 87-14-4115HrmpxjkxOwoev endocrine disorders (4 sources)Testicular hypofunction; Translations: [TESTICULAR HYPOFUNCTION] Onset: 77-42-8945PcihrylEtqag nervous system disorders (3 sources)Chronic pain syndrome; Translations: [Chronic pain syndrome]Chronic Other nervous system disorders (2 sources)Chronic pain; Translations: [Other chronic pain]ChronicOther nervous system disorders (1 source)Other chronic painChronicOther nutritional; endocrine; and metabolic disorders (2 sources)Obese class I; Translations: [Obesity, unspecified]Onset: 03-17-2021 65-03-7896JfaggjcTdsgk nutritional; endocrine; and metabolic disorders (3 sources)Body [...] index (BMI) of 34.0 to 34.9 in adult]22-80-3819UjmczakHfnwb screening for suspected conditions (not mental disorders or infectious disease) (8 sources)Encounter for screening for malignant neoplasm of prostate; Translations: [Blood chemistry abnormal]Onset: 553686-46-8441Penuhlwh Residual codes; unclassified (6 sources)Obstructive sleep apnea syndrome; Translations: [Obstructive sleep apnea (adult) (pediatric)]Onset: 429971-46-9608FicndgcKqrdbyts codes; unclassified (1 source)Obstructive sleep apnea (adult) (pediatric)ChronicResidual codes; unclassified (4 sources)Periodic limb movement disorder; Translations: [Periodic limb movement disorder]Onset: 501994-57-4598XjoooalZzfuicsc codes; unclassified (4 sources)Hypersomnia; Translations: [Hypersomnia, unspecified]Onset: 764183-52-5893YrgfgpiNjtwnzsy codes; unclassified (1 source)Drug compliance good; Translations: [...] sources)Right upper quadrant pain; Translations: [Epigastric pain]Onset: 28-48-3872GdkrwtvwVgvlx connective tissue disease (4 sources)Myofascial pain; Translations: [Myalgia, other site]EpisodicOther lower respiratory disease (4 sources)Snoring; Translations: [Snoring]Onset: 556664-23-8176Fgyafqjv Unclassified (1 source)Low back pain, unspecified M54.50 Results Test NameValueInterpretationReference RangeFacilityBasophils Auto (Bld) [#/Vol] Ordered By: Christian Pablo on 01-93-6035Bvqnpihgu (Bld) [#/Vol]0.1 10 3/uL0.0-0.1 [facility] CenterBasophils/100 WBC Auto (Bld)Ordered By: Christian Pablo on 36-42-0120Abidfiqxa/100 WBC (Bld)1.4 %0.2-2.0[facility] CenterCholesterol in LDL Calc [Mass/Vol]Ordered By: Efrain Bowling on 07-08-2025 Cholesterol in LDL [Mass/Vol]120.0 mg/dLUniversity Hospitals Geneva Medical CenterComment on above:<100 mg/dl ZKMDUZA723-507 mg/dl NEAR OR ABOVE VRPIXSW235-662 mg/dl BORDERLINE GMSC295-103 mg/dl HIGH>190 mg/dl VERY HIGHCholesterol in VLDL Calc [Mass/Vol]Ordered By: Efrain Bowling on 23-26-9612Xsdnevofvjx in VLDL [Mass/Vol] 28.8 mg/dLUniversity Hospitals Geneva Medical CenterEosinophils/100 WBC Auto (Bld)Ordered By: Christian Pablo on 88-66-8640Anpivbdvrhs/100 WBC (Bld)6.1 %0.9-7.0[facility] CenterErythrocyte distribution width Auto (RBC) [Ratio]Ordered By: Christian Pablo on 03-37-1661Mlfshjdljmt distribution width (RBC) [Ratio]14.2 % 11.0-15.0[facility] CenterGlobulin Calc (S) [Mass/Vol]Ordered By: Christian Pablo on 62-90-5572Ouqjotks (S) [Mass/Vol]3.6 g/dLUniversity Hospitals Geneva Medical CenterGlomerular filtration rate (GFR) estimation in non- AmericanOrdered By: Christian Pablo on 76-93-0703NFN/1.73 sq M.predicted among non- blacks MDRD (S/P/Bld) [Vol rate/Area]51 mL/min/{1.73_m2}Low>=60 mL/min/1.73m 2 [facility] CenterHematocrit Auto (Bld) [Volume fraction]Ordered By: Christian Pablo on 69-04-6270Bxfkcazdic (Bld) [Volume fraction]46.8 %42.0-54.0 [facility] CenterHemoglobin [Mass/volume] in BloodOrdered By: Christian Pablo on 99-75-3168Jesatlqhyo (Bld) [Mass/Vol]15.6 g/dL14.0-18.0[facility] CenterLaboratory - Chemistry and Chemistry - challengeOrdered By: Christian Pablo on 12-72-4517Sjbjifl [Mass/Vol]3.9 g/dL3.4-5.0[facility] CenterALP [Catalytic activity/Vol]82 U/J74-584GoodbtoovUniversity Hospitals Geneva Medical CenterALT [Catalytic activity/Vol]66 U/KYktq03-68ZvxlzbweeUniversity Hospitals Geneva Medical CenterAST [Catalytic activity/Vol]34 U/C97-47ZszyglammUniversity Hospitals Geneva Medical Center Bilirubin [Mass/Vol]0.5 mg/dL0.2-1.0[facility] CenterCalcium [Mass/Vol]9.8 mg/dL8.5-10.1FRegency Hospital Cleveland WestChloride [Moles/Vol] 102 mmol/X04-903YoyoogenfUniversity Hospitals Geneva Medical CenterCO2 [Moles/Vol]27.1 mmol/L 21.0-32.0[facility] CenterCreatinine [Mass/Vol]1.44 mg/dLHigh 0.70-1.30[facility] CenterGFR/1.73 sq M.predicted MDRD (S/P/Bld) [Vol rate/Area]mL/min/{1.73_m2}>=60 mL/min/1.73m 2FRegency Hospital Cleveland WestGlucose [Mass/Vol]100 mg/nU95-709OjqqitvudUniversity Hospitals Geneva Medical Center Potassium [Moles/Vol]3.8 mmol/L3.5-5.1FRegency Hospital Cleveland WestProtein [Mass/Vol]7.5 g/dL6.4-8.2FOhio Valley Surgical Hospitalodium [Moles/Vol]139 mmol/C137-238KqzhyhutyUniversity Hospitals Geneva Medical CenterUrea nitrogen [Mass/Vol]16.0 mg/dL 7.0-18.0[facility] CenterUrea nitrogen/Creatinine [Mass ratio] 11.1 mg/mgUniversity Hospitals Geneva Medical CenterLaboratory - Chemistry and Chemistry - challengeOrdered By: Efrain Bowling on 23-10-6225Alysquzmxem [Mass/Vol]184 mg/dL <=200[facility] CenterCholesterol in HDL [Mass/Vol]36 mg/dLLow 40-60[facility] CenterComment on above:> or =60 mg/dl - LOW CARDIOVASCULAR RISK<40 mg/dl - HIGH CARDIOVASCULAR RISKTriglyceride [Mass/Vol] 144 mg/dL<=150[facility] CenterLaboratory - Hematology and Cell countsOrdered By: Christian Pablo on 98-45-6405Gaiixjsd granulocytes/100 WBC (Bld)0.2 %0.0-0.5FRegency Hospital Cleveland WestLeukocytes [#/volume] corrected for nucleated erythrocytes in Blood by Automated counOrdered By: Christian Pablo on 66-02-0994TES corrected for nucl RBC Auto (Bld) [#/Vol]8.0 10 3/uL4.0-11.0 [facility] CenterLymphocytes Auto (Bld) [#/Vol]Ordered By: Christian Pablo on 33-40-4276Ynqpzelgcfk (Bld) [#/Vol]3.6 10 3/uL1.2-3.8[facility] CenterLymphocytes/100 WBC Auto (Bld)Ordered By: Christian Pablo on 34-48-2154Soyuprdlrav/100 WBC (Bld)44.6 %20.5-60.0[facility] Auto (RBC) [Entitic mass]Ordered By: Christian Pablo on 48-18-4242MQE (RBC) [Entitic mass]27.8 pg25.9-34.0[facility] WestHC Auto (RBC) [Mass/Vol]Ordered By: Christian Pablo on 41-14-3667PVDE (RBC) [Mass/Vol]33.3 g/dL 29.9-35.2FRegency Hospital Cleveland WestMCV Auto (RBC) [Entitic vol]Ordered By: Christian Pablo on 58-43-2032NYA (RBC) [Entitic vol]83.4 fL80.0-94.0[facility] CenterMonocytes Auto (Bld) [#/Vol]Ordered By: Christian Pablo on 01-78-0504Kxsbdzsyk (Bld) [#/Vol]0.7 10 3/uL0.3-0.8[facility] CenterMonocytes/100 WBC Auto (Bld)Ordered By: Christian Pablo on 07-08-2025 Monocytes/100 WBC (Bld)8.3 %1.7-12.0[facility] CenterNeutrophils Auto (Bld) [#/Vol]Ordered By: Christian Pablo on 05-20-6996Ztepdelkiwl (Bld) [#/Vol] 3.2 10 3/uL1.4-6.5FRegency Hospital Cleveland WestNeutrophils/100 WBC Auto (Bld)Ordered By: Christian Pablo on 72-10-6287Ugyxuxwpyku/100 WBC (Bld)39.4 %Low 43.0-75.0[facility] CenterNo Panel InformationOrdered By: Christian Pablo on 72-69-3860Xgqtiqxdrmz # (Auto)0.5 10 3/uL0.0-0.7FRegency Hospital Cleveland WestImmature Granulocyte # (Auto)0.02 10 3/uL0.00-0.03[facility] CenterProstate Specific Antigen Screen1.21 ng/mL<=4.00[facility] CenterNo Panel InformationOrdered By: Chata Page on 07-08-2025 Testosterone Hmndd131 ng/xY073-713QidlxnahwUniversity Hospitals Geneva Medical CenterComment on above:Adult male reference interval is based on a population ofhealthy nonobese males (BMI <30) between 19 and 39 yearsold. bouchra Quinones.al. JCEM 2017,102;1161- 1173. PMID:[id number].Performed at: [address] [id number] Director: Checo Pitts PhD, Phone: [phone] mean volume Auto (Bld) [Entitic vol]Ordered By: Christian Pablo on 14-49-8429Dbznnxdq mean volume (Bld) [Entitic vol]9.9 fL9.5-13.5FRegency Hospital Cleveland West Platelets Auto (Bld) [#/Vol]Ordered By: Christian Pablo on 28-19-1008Xtokcpcif (Bld) [#/Vol]312 10 3/fY468-282BirlickugUniversity Hospitals Geneva Medical CenterRBC Auto (Bld) [#/Vol] Ordered By: Christian Pablo on 53-65-1622ZCI (Bld) [#/Vol]5.61 10 6/uL4.70-6.10 [facility] Hospitalerum or plasma albumin/globulin mass ratio Ordered By: Christian Pablo on 36-48-3475Zcqnabx/Globulin [Mass ratio]1.1 {ratio} [facility] Hospitalerum or plasma anion gap determinationOrdered By: Christian Pablo on 57-47-8034Firhx gap [Moles/Vol]13.7 mmol/LFOhio Valley Surgical Hospitalerum or plasma total cholesterol/high density lipoprotein (HDL) cholesterol mass ratOrdered By: Efrain Bowling on 07-08-2025 Cholesterol.total/Cholesterol in HDL [Mass ratio]5.1 {ratio}[facility] CenterComment on above:3.3 - 4.4 LOW RISK4.4 - 7.1 AVERAGE RISK7.1 - 11.0 MODERATE RISK>11.0 HIGH RISKNo Panel InformationOrdered By: Geovanna Clarke on 20-79-7041Jemyu Strep (POC)[facility] Urology Office/Clinic Noteon 72-79-2340Yfhzepu Office/Clinic NoteUrology Office/Clinic Note Chief Complaint Patient in office for f/u with blood work HPI Staff Manuel is a 54 yo male pt here today for a 1 yr f/u w/Testosterone Levels. Previous DX: male hypogonadism, BPH, impotence *Cialis 10mg PRN, Androgel 2 pumps qd. Patient had BW done at [facility] on 07/29/24 and 07/30/24. PSA was [...] 324 07/19/21 - 754 07/20/23 - 366 [phone] 07/29/24 - 464 07/30/24 - Hgb 16.5 [...] prior, remains low. Pt states that [facility] wellness labs have dropped, has not [...] acel/tetanus adult 02/08/2013 Gi (more content not included)...[facility] HospitalComment on above:Result Comment: Electronically Signed By: Camilo FERMIN, Chata Pope.br\Date and Time Signed: 07/31/24 08:33ESTBasophils Auto (Bld) [#/Vol]on 16-40-5363Ttvippcoj (Bld) [#/Vol] Automated basophil count0.0-0.1FRegency Hospital Cleveland WestBasophils/100 WBC Auto (Bld)on 79-85-0333Qixnfeaum/100 WBC (Bld)Automated basophil %0.2-2.0 [facility] CenterCholesterol in LDL Calc [Mass/Vol]on 07-30-2024 Cholesterol in LDL [Mass/Vol]Cholesterol in LDL [Mass/volume] in Serum or Plasma by calculationUniversity Hospitals Geneva Medical CenterComment on above:<100 mg/dl PTZWSJZ080-041 mg/dl NEAR OR ABOVE DAFAFAW365-444 mg/dl BORDERLINE ZYDB294-147 mg/dl HIGH>190 mg/dl VERY HIGHCholesterol in VLDL Calc [Mass/Vol]on 07-30-2024 Cholesterol in VLDL [Mass/Vol]Cholesterol in VLDL [Mass/volume] in Serum or Plasma by calculationUniversity Hospitals Geneva Medical CenterEosinophils/100 WBC Auto (Bld)on 27-36-2591Msjjiowqnht/100 WBC (Bld)Automated eosinophil %Low0.9-7.0 [facility] CenterErythrocyte distribution width Auto (RBC) [Ratio]on 43-09-8690Knrbitsdxte distribution width (RBC) [Ratio]Erythrocyte distribution width [Ratio] by Automated count11.0-15.0[facility] CenterEstimated glomerular filtration rate (GFR) non- Americanon 82-17-0089MHD/1.73 sq M.predicted among non-blacks MDRD (S/P/Bld) [Vol rate/Area]Estimated glomerular filtration rate (GFR) non- AmericanLow>=60 mL/min/1.73m 2FRegency Hospital Cleveland WestGlobulin Calc (S) [Mass/Vol]on 14-83-9442Aznlzywo (S) [Mass/Vol]Serum globulin measurement by calculation (mass/volume)[facility] CenterGlucose mean value [Mass/volume] in Blood Estimated from glycated hemoglobinon 55-75-1057Igyjykl glucose Estimated from glycated hemoglobin (Bld) [Mass/Vol]Glucose mean value [Mass/volume] in Blood Estimated from glycated hemoglobinUniversity Hospitals Geneva Medical CenterHematocrit Auto (Bld) [Volume fraction]on 26-38-4959Soywixrxml (Bld) [Volume fraction]Hematocrit [Volume Fraction] of Blood by Automated count 42.0-54.0[facility] CenterHemoglobin [Mass/volume] in Bloodon 61-63-2543Yqjcaktvjv (Bld) [Mass/Vol]Hemoglobin [Mass/volume] in Blood14.0-18.0 [facility] CenterLaboratory - Chemistry and Chemistry - challengeon 67-98-6706Pkhdgni [Mass/Vol]3.5 g/dL3.4-5.0[facility] CenterALP [Catalytic activity/Vol]76 U/C25-473PoqgvtnwrUniversity Hospitals Geneva Medical CenterALT [Catalytic activity/Vol]69 U/POgxc37-14CldxdmyocUniversity Hospitals Geneva Medical CenterAST [Catalytic activity/Vol]22 U/P24-91WmtljrwqxUniversity Hospitals Geneva Medical Center Bilirubin [Mass/Vol]1.1 mg/dLHigh0.2-1.0[facility] CenterCalcium [Mass/Vol]9.3 mg/dL8.5-10.1FRegency Hospital Cleveland WestChloride [Moles/Vol]99 mmol/B62-622UhxkxstooUniversity Hospitals Geneva Medical CenterCholesterol [Mass/Vol]171 mg/dL<=200[facility] CenterCholesterol in HDL [Mass/Vol]56 mg/qQ44-76DalmgoffaUniversity Hospitals Geneva Medical CenterComment on above:> or =60 mg/dl - LOW CARDIOVASCULAR RISK<40 mg/dl - HIGH CARDIOVASCULAR RISKCO2 [Moles/Vol]28.8 mmol/L21.0-32.0[facility] CenterCreatinine [Mass/Vol]1.50 mg/dLHigh0.70-1.30[facility] CenterGFR/1.73 sq M.predicted MDRD (S/P/Bld) [Vol rate/Area]59 mL/min/{1.73_m2}Low>=60 mL/min/1.73m 2FRegency Hospital Cleveland WestGlucose [Mass/Vol]96 mg/qF56-156 [facility] CenterPotassium [Moles/Vol]3.4 mmol/LLow3.5-5.1 [facility] CenterProtein [Mass/Vol]7.3 g/dL6.4-8.2FOhio Valley Surgical Hospitalodium [Moles/Vol]137 mmol/E475-415GtoknhpvzUniversity Hospitals Geneva Medical CenterTriglyceride [Mass/Vol]68 mg/dL<=150[facility] CenterTSH Qn2.119 m[IU]/L0.358-3.740[facility] CenterUrea nitrogen [Mass/Vol]27.0 mg/dLHigh7.0-18.0[facility] CenterUrea nitrogen/Creatinine [Mass ratio]18.0 mg/mgUniversity Hospitals [facility] Center Laboratory - Hematology and Cell countson 18-74-9680SeQ4o (Bld) [Mass fraction] 5.6 %4.5-6.2FRegency Hospital Cleveland WestComment on above:ADA RECOMMENDED LIMIT 4.0 - 6.0ADA THERAPEUTIC TARGET < 7.0ACTION SUGGESTED> 7.0Immature granulocytes/100 WBC (Bld)0.6 %High0.0-0.5FRegency Hospital Cleveland West Leukocytes [#/volume] corrected for nucleated erythrocytes in Blood by Automated counon 76-92-9767VOB corrected for nucl RBC Auto (Bld) [#/Vol]Leukocytes [#/volume] corrected for nucleated erythrocytes in Blood by Automated counHigh 4.0-11.0[facility] CenterLymphocytes Auto (Bld) [#/Vol]on 48-47-4867Bxxurpoozov (Bld) [#/Vol]Lymphocytes [#/volume] in Blood by Automated countHigh1.2-3.8[facility] CenterLymphocytes/100 WBC Auto (Bld) on 05-49-4493Ntahczlifdw/100 WBC (Bld)Lymphocytes/100 leukocytes in Blood by Automated count20.5-60.0[facility] WestH Auto (RBC) [Entitic mass]on 21-45-5923UOO (RBC) [Entitic mass]MCH [Entitic mass] by Automated count 25.9-34.0[facility] CenterMCHC Auto (RBC) [Mass/Vol]on 17-26-7930BZMC (RBC) [Mass/Vol]MCHC [Mass/volume] by Automated count29.9-35.2 [facility] CenterMCV Auto (RBC) [Entitic vol]on 08-44-7242QKL (RBC) [Entitic vol]MCV [Entitic volume] by Automated count80.0-94.0[facility] CenterMonocytes Auto (Bld) [#/Vol]on 33-56-3269Jgjrtking (Bld) [#/Vol]Automated blood monocyte countHigh0.3-0.8[facility] CenterMonocytes/100 WBC Auto (Bld)on 63-70-4043Xoeoqpsif/100 WBC (Bld)Automated monocyte %1.7-12.0[facility] CenterNeutrophils Auto (Bld) [#/Vol]on 30-22-9810Kqlpudbmjvv (Bld) [#/Vol]Neutrophils [#/volume] in Blood by Automated countHigh1.4-6.5FRegency Hospital Cleveland WestNeutrophils/100 WBC Auto (Bld)on 82-06-6148Uoybanxvbxu/100 WBC (Bld)Automated neutrophil %43.0-75.0 [facility] CenterNo Panel Informationon 82-72-8686Kqouwvrbhof # (Auto)0.1 10 3/uL0.0-0.7FRegency Hospital Cleveland WestImmature Granulocyte # (Auto)0.09 10 3/uLHigh0.00-0.03[facility] CenterProstate Specific Antigen Screen0.65 ng/mL<=4.00[facility] CenterPlatelet mean volume Auto (Bld) [Entitic vol]on 98-09-8431Ttzotpbj mean volume (Bld) [Entitic vol]Platelet mean volume [Entitic volume] in Blood by Automated count Low9.5-13.5FRegency Hospital Cleveland WestPlatelets Auto (Bld) [#/Vol]on 82-60-5654Ljrbckngo (Bld) [#/Vol]Platelets [#/volume] in Blood by Automated dlifb172-499BgajcrfeaUniversity Hospitals Geneva Medical CenterRBC Auto (Bld) [#/Vol]on 07-30-2024 RBC (Bld) [#/Vol]Erythrocytes [#/volume] in Blood by Automated count4.70-6.10 [facility] Hospitalerum or plasma albumin/globulin mass ratioon 18-65-9401Bcxrpsg/Globulin [Mass ratio]Serum or plasma albumin/globulin mass ratioAvita Health System Ontario Hospitalerum or plasma anion gap determinationon 06-19-8828Hlhdu gap [Moles/Vol]Serum or plasma anion gap determinationAvita Health System Ontario Hospitalerum or plasma total cholesterol/high density lipoprotein (HDL) cholesterol mass spencer 85-65-9487Oapjwpluqkz.total/Cholesterol in HDL [Mass ratio]Serum or plasma total cholesterol/high density lipoprotein (HDL) cholesterol mass ratUniversity Hospitals Geneva Medical CenterComment on above:3.3 - 4.4 LOW RISK4.4 - 7.1 AVERAGE RISK7.1 - 11.0 MODERATE RISK>11.0 HIGH RISK Hematocrit Auto (Bld) [Volume fraction]on 91-24-9244Cswtnaknzj (Bld) [Volume fraction]Hematocrit [Volume Fraction] of Blood by Automated count42.0-54.0 [facility] CenterNo Panel Informationon 51-58-1323Hlupsqlhqeqz Ecycj538 ng/kX190-662PgwmejvcbUniversity Hospitals Geneva Medical CenterComment on above:Adult male reference interval is based on a population ofhealthy nonobese males (BMI <30) between 19 and 39 yearsold. Joni et.al. JCEM 2017,102;1687-6466. PMID:[id number].Performed at: [address] [id number] Director: Checo Pitts PhD, Phone: [phone] [Mass/volume] in Serum or Plasmaon 47-02-9629Njbkymg [Mass/Vol]3.7 g/dL2.9-4.4 [facility] CenterBasophils Auto (Bld) [#/Vol]on 12-26-2023 Basophils (Bld) [#/Vol]0.1 10 3/uL0.0-0.1FRegency Hospital Cleveland West Basophils/100 WBC Auto (Bld)on 13-34-9649Nepotwhlj/100 WBC (Bld)0.7 %0.2-2.0 [facility] CenterEosinophils/100 WBC Auto (Bld)on 12-26-2023 Eosinophils/100 WBC (Bld)3.0 %0.9-7.0[facility] Erythrocyte distribution width Auto (RBC) [Ratio]on 86-88-3244Exixnksqruj distribution width (RBC) [Ratio]21.4 %11.0-15.0[facility] Hematocrit Auto (Bld) [Volume fraction]on 59-45-0394Nfswckjzmq (Bld) [Volume fraction]47.9 %42.0-54.0[facility] CenterHemoglobin [Mass/volume] in Bloodon 76-72-0117Pjfmakdfyc (Bld) [Mass/Vol]15.7 g/dL14.0-18.0 [facility] CenterIgA [Mass/volume] in Serum or Plasmaon 75-60-5520QoV [Mass/Vol]232 mg/yY62-107XiedlycnuUniversity Hospitals Geneva Medical CenterIgG [Mass/volume] in Serum or Plasmaon 38-43-8328GkD [Mass/Vol]1144 mg/dR704-3141 [facility] CenterIgM [Mass/volume] in Serum or Plasmaon 78-93-8618ZgA [Mass/Vol]79 mg/dN31-347VnssdcwzpUniversity Hospitals Geneva Medical CenterLon 00-22-8362WTzwsrvxs: Received: 12/27/23 Status: KELSIE Wade Num: [id number] Spec Type: Impression Subm Dr: Margaux Estrada MD Tissues: PATHPER Procedures: PATHREVIEW Age/ Patient Sex Location Account Attending Physician Manuel Burgos 53/M LABELL [id number] Margaux Estrada MD SPEC NUM: RECD: 12/27/23 STATUS: KELSIE WADE NUM: [id number] MAYRA: 12/26/[address]: Margaux Estrada MD ENTERED: 12/27/23 [facility] DR: Chase Oropeza SPEC TYPE: Impression DEPT: KELSIE Jackson ENTERED BY: [id number] RECV BY: [id number] ORDERED: PATHREVIEW ORDERED: PATHREVIEW Pathologist Review Occasional atypical lymphocytes are noted. Atypical infection should be ruled out. Specimen: Received: 12/27/23 Status: KELSIE Wade Num: [id number] Spec Type: Impression Subm Dr: Margaux Estrada MD Tissues: PATHPER Procedures: PATHREVIEW Patient: Manuel Burgos [id number] (Continued) Signed (signature on file) Elroy Hutchins MD 12/27/[address] [place] [address] Physician GroupLaboratory - Chemistry and Chemistry - challengeon 82-90-0618VBM [Catalytic activity/Vol]211 U/L85-227 [facility] CenterProtein [Mass/Vol]0.2 g/dLNot ObservedUniversity Hospitals Geneva Medical CenterLaboratory - Hematology and Cell countson 12-26-2023 Immature granulocytes/100 WBC (Bld)0.2 %0.0-0.5FRegency Hospital Cleveland West Leukocytes [#/volume] corrected for nucleated erythrocytes in Blood by Automated counon 94-73-2826VPH corrected for nucl RBC Auto (Bld) [#/Vol]9.7 10 3/uL 4.0-11.0[facility] CenterLymphocytes Auto (Bld) [#/Vol]on 60-41-3290Tpuoraftxnd (Bld) [#/Vol]3.5 10 3/uL1.2-3.8[facility] CenterLymphocytes/100 WBC Auto (Bld)on 72-83-1758Fekzbcgrsyo/100 WBC (Bld)36.4 % 20.5-60.0[facility] CenterMCH Auto (RBC) [Entitic mass]on 92-24-1023FFP (RBC) [Entitic mass]27.5 pg25.9-34.0[facility] CenterMCHC Auto (RBC) [Mass/Vol]on 99-75-1990GLSA (RBC) [Mass/Vol]32.8 g/dL 29.9-35.2FRegency Hospital Cleveland WestMCV Auto (RBC) [Entitic vol]on 88-05-8240SYE (RBC) [Entitic vol]84.0 fL80.0-94.0[facility] CenterMonocytes Auto (Bld) [#/Vol]on 25-35-2767Jkiaasuwn (Bld) [#/Vol]0.7 10 3/uL0.3-0.8[facility] CenterMonocytes/100 WBC Auto (Bld)on 23-57-8536Zcojptqsv/100 WBC (Bld)7.5 %1.7-12.0[facility] Neutrophils Auto (Bld) [#/Vol]on 12-99-6199Uzrmnbcerdn (Bld) [#/Vol]5.1 10 3/uL 1.4-6.5FRegency Hospital Cleveland WestNeutrophils/100 WBC Auto (Bld)on 27-92-0796Ooqagynbckp/100 WBC (Bld)52.2 %43.0-75.0[facility] CenterNo Panel Informationon 76-81-3326Hkvbesfatlg # (Auto)0.3 10 3/uL0.0-0.7 [facility] CenterImmature Granulocyte # (Auto)0.02 10 3/uL 0.00-0.03[facility] CenterProtein Electrophoresis NoteComment. [facility] CenterComment on above:Protein electrophoresis scan will follow via computer,mail, or filter assembler delivery.Performed at: [facility] [place] [id number] Director: Checo Pitts PhD, Phone: [phone] mean volume Auto (Bld) [Entitic vol]on 12-26-2023 Platelet mean volume (Bld) [Entitic vol]10.0 fL9.5-13.5FRegency Hospital Cleveland WestPlatelets Auto (Bld) [#/Vol]on 38-81-3663Lsadvhbnr (Bld) [#/Vol] 269 10 3/fT817-461CwxprewggUniversity Hospitals Geneva Medical CenterProtein [Mass/volume] in Serum or Plasmaon 32-15-9275Lwvimtz [Mass/Vol]6.9 g/dL6.0-8.5FRegency Hospital Cleveland WestRBC Auto (Bld) [#/Vol]on 11-23-4168PUU (Bld) [#/Vol]5.70 10 6/uL 4.70-6.10[facility] Hospitalerum globulin measurement (mass/volume)on 04-35-9607Fewxikxm (S) [Mass/Vol]3.2 g/dL2.2-3.9[facility] Hospitalerum or plasma albumin/globulin mass ratioon 12-26-2023 Albumin/Globulin [Mass ratio]1.2 {ratio}0.7-1.7FRegency Hospital Cleveland West Serum or plasma alpha 1 globulin measurement by electrophoresis (mass/volume)on 71-23-5294Bwwez 1 globulin Elph [Mass/Vol]0.2 g/dL0.0-0.4FOhio Valley Surgical Hospitalerum or plasma alpha 2 globulin measurement by electrophoresis (mass/volume)on 92-86-3007Hamuu 2 globulin Elph [Mass/Vol]0.7 g/dL0.4-1.0 [facility] Hospitalerum or plasma beta globulin measurement by electrophoresis (mass/volume)on 89-14-4224Gnex globulin Elph [Mass/Vol]1.5 g/dL 0.7-1.3FOhio Valley Surgical Hospitalerum or plasma gamma globulin measurement by electrophoresis (mass/volume)on 47-36-7112Gligx globulin Elph [Mass/Vol]0.9 g/dL0.4-1.8[facility] Hospitalerum or plasma immunoelectrophoresis interpretationon 66-06-4500Xtaajztsqnveej IEP [Interp] Comment.[facility] CenterComment on above:Immunofixation shows IgG monoclonal protein with lambdalight chain specificity.Basophils Auto (Bld) [#/Vol]on 97-13-9373Lfmwnftie (Bld) [#/Vol]0.1 10 3/uL0.0-0.1FRegency Hospital Cleveland WestBasophils/100 WBC Auto (Bld)on 60-20-8865Vbqiqgffh/100 WBC (Bld) 1.1 %0.2-2.0[facility] CenterEosinophils/100 WBC Auto (Bld)on 18-89-6767Zbzuhjkwfau/100 WBC (Bld)3.3 %0.9-7.0[facility] Erythrocyte distribution width Auto (RBC) [Ratio]on 97-07-6005Gtutvlvdyqa distribution width (RBC) [Ratio]21.6 %11.0-15.0[facility] Hematocrit Auto (Bld) [Volume fraction]on 58-16-1417Cpfnusfcek (Bld) [Volume fraction]45.7 %42.0-54.0[facility] CenterHemoglobin [Mass/volume] in Bloodon 57-61-0189Ihclilecck (Bld) [Mass/Vol]14.9 g/dL14.0-18.0 [facility] CenterIron binding capacity [Mass/volume] in Serum or Plasmaon 61-46-3856Otjl binding capacity [Mass/Vol]370.0 ug/dL250.0-450.0 [facility] CenterIron saturation [Mass Fraction] in Serum or Plasmaon 72-25-4955Mbkt saturation [Mass fraction]37.6 %[facility] CenterLaboratory - Chemistry and Chemistry - challengeon 12-19-2023 Ferritin [Mass/Vol]31.0 ng/mL26.0-388.0[facility] CenterIron [Mass/Vol]139.0 ug/dL65.0-175.0[facility] CenterLaboratory - Hematology and Cell countson 82-93-0751Mtygvchs granulocytes/100 WBC (Bld)0.5 % 0.0-0.5FRegency Hospital Cleveland WestLeukocytes [#/volume] corrected for nucleated erythrocytes in Blood by Automated counon 59-88-8527YVQ corrected for nucl RBC Auto (Bld) [#/Vol]9.4 10 3/uL4.0-11.0[facility] Lymphocytes Auto (Bld) [#/Vol]on 01-74-2516Banfxjihynu (Bld) [#/Vol]3.3 10 3/uL 1.2-3.8[facility] CenterLymphocytes/100 WBC Auto (Bld)on 84-64-5179Jvxycbspzeu/100 WBC (Bld)34.5 %20.5-60.0[facility] WestH Auto (RBC) [Entitic mass]on 24-24-1107GPU (RBC) [Entitic mass]26.8 pg 25.9-34.0[facility] CenterMCHC Auto (RBC) [Mass/Vol]on 54-65-7657ESIZ (RBC) [Mass/Vol]32.6 g/dL29.9-35.2FRegency Hospital Cleveland WestMCV Auto (RBC) [Entitic vol]on 66-04-4343OTY (RBC) [Entitic vol]82.2 fL 80.0-94.0[facility] CenterMonocytes Auto (Bld) [#/Vol]on 82-33-8963Yizejklpa (Bld) [#/Vol]0.9 10 3/uL0.3-0.8[facility] CenterMonocytes/100 WBC Auto (Bld)on 10-47-8644Usvlivkcq/100 WBC (Bld)9.2 % 1.7-12.0[facility] CenterNeutrophils Auto (Bld) [#/Vol]on 69-01-4557Zfdicsypyta (Bld) [#/Vol]4.9 10 3/uL1.4-6.5FRegency Hospital Cleveland WestNeutrophils/100 WBC Auto (Bld)on 17-34-0757Rrgotbykjrp/100 WBC (Bld)51.4 % 43.0-75.0[facility] CenterNo Panel Informationon 12-19-2023 Eosinophils # (Auto)0.3 10 3/uL0.0-0.7FRegency Hospital Cleveland WestImmature Granulocyte # (Auto)0.05 10 3/uL0.00-0.03[facility] Miscellaneous TestCOMMENT.[facility] CenterComment on above:Test Ordered: [id number] Hgb Fractionation CascadeHgb F 0.0 % CB Reference Range: 0.0- 2.0Hgb A 97.8 % CB Reference Range: 96.4-98.8Hgb A2 2.2 % CB Reference Range: 1.8-3.2Hgb S 0.0 % CB Reference Range: 0.0Interpretation: Comment CB Reference Range: .Normal hemoglobin present; no hemoglobin variant or betathalassemia identified.Note: Alpha thalassemia may not be detected by the HgbFractionation [place] panel. If alpha thalassemia issuspected, [facility] offers Alpha- Thalassemia DNA Analysis(#[id number]).Performed at: - [address] [id number] Director: Checo Pitts PhD, Phone: [phone] Platelet mean volume Auto (Bld) [Entitic vol]on 34-10-1352Dylojvui mean volume (Bld) [Entitic vol]9.4 fL9.5-13.5FRegency Hospital Cleveland WestPlatelets Auto (Bld) [#/Vol]on 00-45-7131Pkitpijrx (Bld) [#/Vol]299 10 3/fI158-722DltgpohffUniversity Hospitals Geneva Medical CenterRBC Auto (Bld) [#/Vol]on 12-63-8666BDG (Bld) [#/Vol]5.56 10 6/uL4.70-6.10[facility] CenterBasophils Auto (Bld) [#/Vol]on 83-82-0105Jffuktjbz (Bld) [#/Vol]0.1 10 3/uL0.0-0.1FRegency Hospital Cleveland WestBasophils/100 WBC Auto (Bld)on 40-33-8572Pmdzscyly/100 WBC (Bld)0.9 % 0.2-2.0[facility] CenterEosinophils/100 WBC Auto (Bld)on 53-37-5460Edmwgtfhfeb/100 WBC (Bld)3.2 %0.9-7.0[facility] Erythrocyte distribution width Auto (RBC) [Ratio]on 81-24-0071Aastyodyrzi distribution width (RBC) [Ratio]17.4 %11.0-15.0[facility] Hematocrit Auto (Bld) [Volume fraction]on 05-68-2702Pwrgpjdznf (Bld) [Volume fraction]43.5 %42.0-54.0[facility] CenterHemoglobin [Mass/volume] in Bloodon 00-23-4075Cmxbisoooe (Bld) [Mass/Vol]13.2 g/dL14.0-18.0 [facility] CenterLaboratory - Chemistry and Chemistry - challengeon 17-24-1880Jwhlciqop (Vitamin B12) [Mass/Vol]986.0 pg/mL193.0-986.0 [facility] CenterFerritin [Mass/Vol]14.0 ng/mL26.0-388.0 [facility] CenterLaboratory - Hematology and Cell countson 48-59-0576Efxeadtg granulocytes/100 WBC (Bld)0.2 %0.0-0.5FRegency Hospital Cleveland WestLeukocytes [#/volume] corrected for nucleated erythrocytes in Blood by Automated counon 11-00-2786KFZ corrected for nucl RBC Auto (Bld) [#/Vol]10.0 10 3/uL4.0-11.0[facility] CenterLymphocytes Auto (Bld) [#/Vol]on 55-43-9216Qktnikmehyp (Bld) [#/Vol]3.6 10 3/uL1.2-3.8[facility] CenterLymphocytes/100 WBC Auto (Bld)on 11-08-2023 Lymphocytes/100 WBC (Bld)35.5 %20.5-60.0[facility] CenterMCH Auto (RBC) [Entitic mass]on 51-60-9134GTI (RBC) [Entitic mass]23.9 pg25.9-34.0 [facility] CenterMCHC Auto (RBC) [Mass/Vol]on 78-83-9596IYOO (RBC) [Mass/Vol]30.3 g/dL29.9-35.2FRegency Hospital Cleveland WestMCV Auto (RBC) [Entitic vol]on 98-81-3566JXG (RBC) [Entitic vol]78.7 fL80.0-94.0[facility] CenterMonocytes Auto (Bld) [#/Vol]on 71-75-1297Urdaydnxg (Bld) [#/Vol]0.9 10 3/uL0.3-0.8[facility] CenterMonocytes/100 WBC Auto (Bld)on 54-90-8074Ryjajscse/100 WBC (Bld)8.5 %1.7-12.0[facility] CenterNeutrophils Auto (Bld) [#/Vol]on 96-70-6734Rmcvognsmzw (Bld) [#/Vol]5.2 10 3/uL1.4-6.5FRegency Hospital Cleveland WestNeutrophils/100 WBC Auto (Bld)on 85-02-6387Ittjqufmahc/100 WBC (Bld)51.7 %43.0-75.0[facility] CenterNo Panel Informationon 30-81-0439Kxvtkmoxkpo # (Auto)0.3 10 3/uL0.0-0.7FRegency Hospital Cleveland WestFolate19.60 ng/mL8.60-58.90 [facility] CenterImmature Granulocyte # (Auto)0.02 10 3/uL 0.00-0.03[facility] CenterPlatelet mean volume Auto (Bld) [Entitic vol]on 50-84-3383Oexurgna mean volume (Bld) [Entitic vol]9.4 fL9.5-13.5 [facility] CenterPlatelets Auto (Bld) [#/Vol]on 11-08-2023 Platelets (Bld) [#/Vol]384 10 3/mY119-235WccejxrrqUniversity Hospitals Geneva Medical CenterRBC Auto (Bld) [#/Vol]on 84-28-6035CFW (Bld) [#/Vol]5.53 10 6/uL4.70-6.10[facility] CenterTESTOSTERONE, TOTALon 24-31-0167Rcdwvedsmebq [Mass/Vol] 487 ng/yZMtbmxo330-394Ytn [facility] HospitalComment on above:Result Comment: Adult male reference interval is based on a population of healthy nonobese males (BMI <30) between 19 and 39 years old. Joni et.al. JCEM 2017,102;4513-8861. PMID: [id number].Performed By: #### TESTTOT #### [facility] [address] [address] [address] Mychal Shine SINGLE QUAD RT UPPERon 33-57-1864EO SINGLE QUAD RT UPPER EXAMINATION: US SINGLE [...] Electronically authenticated by: CHRISTOFER SCHAEFFER Date: 2022-08-25 07:07[facility] ColumbusTESTOSTERONE, TOTALon 72-82-3850Glkadvcbeiis [Mass/Vol]410 ng/aNBrhgtr421-140Pcr [facility] HospitalComment on above:Result Comment: Adult male reference interval is based on a population of healthy nonobese males (BMI <30) between 19 and 39 years old. bouchra Quinones.al. JCEM 2017,102;0442-0925. PMID: [id number].Performed By: #### TESTTOT #### [facility] [address] [place] [address] Dr. Mychal KimC AUTO DIFFon 49-19-9285VJYH #0.1 103/ulNormal0.0-0.1The [facility] HospitalComment on above:Performed By: #### CBC #### [facility] [address] [place] [address] Dr. Mychal OropezaBasophils/100 WBC (Bld)0.9 %Normal0.2-2.0The [facility] Comment on above:Performed By: #### CBC #### [facility] [address] [place] [address] Dr. Mychal Florence #0.7 103/ulNormal0.0-0.7The [facility] HospitalComment on above: Performed By: #### CBC #### [facility] [address] [place] [address] Dr. Mychal Silvermanosinophils/100 WBC (Bld)6.7 %Normal0.9-7.0The [facility] Comment on above:Performed By: #### CBC #### [facility] [address] [place] [address] Dr. Mychal Silvermanrythrocyte distribution width (RBC) [Ratio]12.8 %Auezgy49.0-15.0 The [facility] HospitalComment on above:Performed By: #### CBC #### [facility] [address] [place] [address] Dr. Mychal OropezaHematocrit (Bld) [Volume fraction]46.9 %Orvzqe98.0-54.0The [facility] HospitalComment on above:Performed By: #### CBC #### [facility] [address] [place] [address] Dr. Mychal OropezaHemoglobin (Bld) [Mass/Vol]16.2 g/aNUmphbr38.0-18.0The [facility] HospitalComment on above:Performed By: #### CBC #### [facility] [address] [place] [address] Dr. Mychal Roberts #0.04 10e3/ulCritically high0.00-0.03The [facility] Comment on above:Performed By: #### CBC #### [facility] [address] [place] [address] Dr. Mychal Roberts %0.4 %Normal0.0-0.5The [facility] HospitalComment on above: Performed By: #### CBC #### [facility] [address] [place] [address] Dr. Mychal Rice #4.1 103/ulCritically high1.2-3.8ThSelect Medical Specialty Hospital - Trumbull Comment on above:Performed By: #### CBC #### [facility] [address] [place] [address] Dr. Mychal Backmphocytes/100 WBC (Bld)37.7 %Faecng76.5-60.0[facility] HospitalComment on above:Performed By: #### CBC #### [facility] [address] [place] [address] Dr. Mychal Ospina DIFF REQNONormalThe [facility] HospitalComment on above: Performed By: #### CBC #### [facility] [address] [place] [address] Dr. Mychal Hu (RBC) [Entitic mass]30.7 qfOcaspa87.9-34.0The [facility] HospitalComment on above:Performed By: #### CBC #### [facility] [address] [place] [address] Dr. Mychal Hu (RBC) [Mass/Vol]34.5 g/jYUeppqo26.9-35.2The [facility] HospitalComment on above:Performed By: #### CBC #### [facility] [address] [place] [address] Dr. Mychal Sutherland (RBC) [Entitic vol]88.8 jDCegrkb07.0-94.0The [facility] HospitalComment on above:Performed By: #### CBC #### [facility] [address] [place] [address] Dr. Mychal Goodwin #0.9 103/ulCritically high0.3-0.8ThSelect Medical Specialty Hospital - [facility] Comment on above:Performed By: #### CBC #### [facility] [address] [place] [address] Dr. Mychal Correiaocytes/100 WBC (Bld)8.1 %Normal1.7-12.0[facility] Comment on above:Performed By: #### CBC #### [facility] [address] [place] [address] Dr. Yilan ChangNEUT #5.1 103/ulNormal1.4-6.5The [facility] HospitalComment on above:Performed By: #### CBC #### [facility] [address] [place] [address] Dr. Mychal Patelutrophils/100 WBC (Bld)46.2 %Dmbrkd95.0-75.0[facility] HospitalComment on above:Performed By: #### CBC #### [facility] [address] [place] [address] Dr. Mychal OropezaPlatelet mean volume (Bld) [Entitic vol]9.7 fLNormal9.5-13.5The [facility] HospitalComment on above:Performed By: #### CBC #### [facility] [address] [place] [address] Dr. Mychal OropezaPLT308 103/tuHlvnrr883-579Wor [facility] HospitalComment on above: Performed By: #### CBC #### [facility] [address] [place] [address] Dr. Mychal OropezaRBC5.28 106/ulNormal4.70-6.10The [facility] HospitalComment on above:Performed By: #### CBC #### [facility] [address] [place] [address] Dr. Mychal OropezaWBC10.9 103/ulNormal4.0-11.0[facility] on above:Performed By: #### CBC #### [facility] [address] [place] [address] Dr. Mychal OropezaGLYCOHEMOGLOBIN A1Con 36-44-9154BHV RECOMMENDATIONSEE BELOWNormal The [facility] HospitalComment on above:Result Comment: ADA RECOMMENDED LIMIT 4.0 - 6.0 ADA THERAPEUTIC TARGET < 7.0 ACTION SUGGESTED > 7.0Performed By: #### A1C #### [facility] [address] [place] [address] Dr. Mychal OropezaGlucose [Mass/Vol]108 mg/dLNormalThSelect Medical Specialty Hospital - TrumbullComment on above:Performed By: #### A1C #### [facility] [address] [place] [address] Dr. Mychal OropezaHbA1c (Bld) [Mass fraction]5.4 %Normal4.5-6.2The [facility] on above:Performed By: #### A1C #### [facility] [address] [place] [address] Dr. Mychal OjedaID PROFILEon 37-11-2001OSGT-HDL RATIO NORMSEE BELOWSelect Medical Specialty Hospital - ColumbusComment on above:Result Comment: 3.3 - 4.4 LOW RISK 4.4 - 7.1 AVERAGE RISK 7.1 - 11.0 MODERATE RISK >11.0 HIGH RISKPerformed By: #### TSH, LIPID, CMP #### [facility] [address] [place] [address] Dr. Mychal Vasquezesterol [Mass/Vol]207 mg/dLCritically high<=200The [facility] on above:Performed By: #### TSH, LIPID, CMP #### [facility] [address] [place] [address] Dr. Mychal Vasquezesterol in HDL [Mass/Vol]47 mg/xWZmfedn50-08Cma [facility] on above:Performed By: #### TSH, LIPID, CMP #### [facility] [address] [place] [address] Dr. Mychal Vasquezesterol in LDL [Mass/Vol]122.4 mg/dLKindred Healthcare on above:Performed By: #### TSH, LIPID, CMP #### [facility] [address] [place] [address] Dr. Mychal Winslow.total/Cholesterol in HDL [Mass ratio]4.4 {ratio} NormalThe [facility] on above:Performed By: #### TSH, LIPID, CMP #### [facility] [address] [place] [address] Dr. Mychal StuartL NORMAL> or = 60 mg/dl - LOW CARDIOVASCULAR RISK <40 mg/dl - HIGH CARDIOVASCULAR RISKSelect Medical Specialty Hospital - ColumbusComment on above:Performed By: #### TSH, LIPID, CMP #### [facility] [address] [place] [address] Dr. Mychal Esparza CALC NORMALSEE BELOWSelect Medical Specialty Hospital - ColumbusComment on above:Result Comment: <100 mg/dl OPTIMAL 100 - 129 mg/dl NEAR OR ABOVE OPTIMAL 130 - 159 mg/dl BORDERLINE HIGH 160 - 189 mg/dl HIGH >190 mg/dl VERY HIGH Performed By: #### TSH, LIPID, CMP #### [facility] [address] [place] [address] Dr. Mychal OropezaTriglyceride [Mass/Vol]188 mg/dLCritically high<=150The [facility] HospitalComup health system on above:Performed By: #### TSH, LIPID, CMP #### [facility] [address] [place] [address] Dr. Mychal OropezaVLDL CALC37.6 mg/dLNoUniversity Hospitals Samaritan Medical CenterComment on above: Performed By: #### TSH, LIPID, CMP #### [facility] [address] [place] [address] Dr. Mychal OropezaPROJarek 14(COMP METB)on 88-57-1199Lhumjtt [Mass/Vol]3.9 g/dLNormal 3.4-5.0The [facility] on above:Performed By: #### TSH, LIPID, CMP #### [facility] [address] [place] [address] Dr. Mychal OropezaAlbumin/Globulin [Mass ratio]1.1 {ratio}NormalThe [facility] HospitalComup health system on above:Performed By: #### TSH, LIPID, CMP #### [facility] [address] [place] [address] Dr. Mychal Amin [Catalytic activity/Vol]77 U/VFdlmxn86-913Icw [facility] on above:Performed By: #### TSH, LIPID, CMP #### [facility] [address] [place] [address] Dr. Mychal Ortiz [Catalytic activity/Vol]56 U/DOlcfmu66-54Gpw [facility] on above:Performed By: #### TSH, LIPID, CMP #### [facility] [address] [address] [address] Mychal Tam gap [Moles/Vol]8.6 mmol/LNormalThe [facility] HospitalComment on above:Performed By: #### TSH, LIPID, CMP #### [facility] [address] [address] [address] Mychal OropezaAST [Catalytic activity/Vol]30 U/TLhtczb35-10Kqh [facility] HospitalComment on above:Performed By: #### TSH, LIPID, CMP #### [facility] [address] [place] [address] Dr. Mychal OropezaBilirubin [Mass/Vol]0.6 mg/dLNormal0.2-1.0The [facility] Comment on above:Performed By: #### TSH, LIPID, CMP #### [facility] [address] [place] [address] Dr. Mychal OropezaCalcium [Mass/Vol]9.2 mg/dLNormal8.5-10.1The [facility] Comment on above:Performed By: #### TSH, LIPID, CMP #### [facility] [address] [address] [address] Mychal OropezaChloride [Moles/Vol]100 mmol/MXzaxpa94-574Xez [facility] Comment on above:Performed By: #### TSH, LIPID, CMP #### [facility] [address] [place] [address] Dr. Mychal OropezaCO2 [Moles/Vol]30.0 mmol/BBxsius38.0-32.0The [facility] Comment on above:Performed By: #### TSH, LIPID, CMP #### [facility] [address] [place] [address] Dr. Mychal OropezaCreatinine [Mass/Vol]1.37 mg/dLCritically high0.70-1.30The [facility] HospitalComment on above:Performed By: #### TSH, LIPID, CMP #### [facility] [address] [place] [address] Dr. Horta ChangEGFR-AF ETHIOPIAN>60Normal>=60The [facility] HospitalComment on above:Performed By: #### TSH, LIPID, CMP #### [facility] [address] [place] [address] Dr. Mychal SilvermanGFR-NON AF DYFTQNBV46 mL/min/1.80h4Royauwzvkj low>=60The [facility] HospitalComment on above:Performed By: #### TSH, LIPID, CMP #### [facility] [address] [place] [address] Dr. Mychal OropezaGlobulin (S) [Mass/Vol]3.7 g/dLNormalThe [facility] HospitalComment on above:Performed By: #### TSH, LIPID, CMP #### [facility] [address] [place] [address] Dr. Mychal OropezaGlucose [Mass/Vol]111 mg/dLCritically azhr56-233Xbq [facility] HospitalComment on above:Performed By: #### TSH, LIPID, CMP #### [facility] [address] [place] [address] Dr. Mychal OropezaPotassium [Moles/Vol]3.6 mmol/LNormal3.5-5.1The [facility] Comment on above:Performed By: #### TSH, LIPID, CMP #### [facility] [address] [place] [address] Dr. Mychal OropezaProtein [Mass/Vol]7.6 g/dLNormal6.4-8.2The [facility] Comment on above:Performed By: #### TSH, LIPID, CMP #### [facility] [address] [place] [address] Dr. Mychal OropezaSodium [Moles/Vol]135 mmol/LCritically qmn117-808Yzh [facility] HospitalComment on above:Performed By: #### TSH, LIPID, CMP #### [facility] [address] [place] [address] Dr. Mychal OropezaUrea nitrogen [Mass/Vol]14.0 mg/dLNormal7.0-18.0The [facility] HospitalComment on above:Performed By: #### TSH, LIPID, CMP #### [facility] [address] [place] [address] Dr. Mychal OropezaUrea nitrogen/Creatinine [Mass ratio]10.2 mg/mgNormalThe [facility] HospitalComment on above:Performed By: #### TSH, LIPID, CMP #### [facility] [address] [address] [address] Mychal OropezaTSHon 22-86-6751IMJ3.907 uIU/mLNormal0.358-3.740The [facility] HospitalComment on above:Performed By: #### TSH, LIPID, CMP #### [facility] [address] [address] [address] Mychal OropezaTESTOSTERONE, TOTALon 29-74-2601Sxswhakkvdet [Mass/Vol]324 ng/dL Alkgzl966-234Rap [facility] HospitalComup health system on above:Result Comment: Adult male reference interval is based on a population of healthy nonobese males (BMI <30) between 19 and 39 years old. Joni et.al. JCEM 2017,102;8030-4517. PMID: [id number].Performed By: #### TESTTOT #### [facility] [address] [place] [address] Dr. Mychal OropezaXR SPINE CERVICAL WITH OBL AND FLEX/EXTon 88-97-8786KY SPINE CERVICAL WITH OBL AND FLEX/EXTEXAM: XR [...] There is fair flexion. No instability is noted.UNM Cancer CenterXR SPINE LUMBAR W BENDINGon 39-18-3119ZL SPINE LUMBAR W BENDINGEXAM: XR SPINE LUMBAR [...] a very good range of motion without instability.[facility]M Cancer CenterXR SPINE LUMBAR W BENDINGOrdered By: Maik Barbosa on 02-10-2021 IMPRESSION: Lumbar spine visually is fairly well preserved. There is no evidence of fracture, listhesis, significant disc space narrowing or major degenerative changes. There is a very good range of motion without instability.[facility] SystemEXAM: XR SPINE LUMBAR W BENDING [...] of motion. There is no listhesis or instability.[facility] SystemUser, Interfaces - 02/10/2021 4:52 PM [...] very good range of motion without instability. [facility] Vital Signs Date TimeVital SignValuePerforming AbykkvrfvSfspndgj16-34-7593 13:29-0500Body pyebmk009.18 cmEfrain Bowling MD Work Phone: [phone]91[facility]11-11-2025 13:29-0500 Body mass index (BMI) [Ratio]34.9 kg/k1QsiaxrEfrain Bowling MD Work Phone: 1([phone] [place], [place] [address]37811-11-2025 13:29-0500 Body .26 kgEfrain Bowling MD Work Phone: [phone]11-11-2025 13:29-0500 Diastolic blood rqvyhgxe38 mm[Hg]Efrain Bowling MD Work Phone: [phone]11-11-2025 13:29-0500 Heart rate74 /minEfrain Bowling MD Work Phone: 1(638)233-[address] [place], [place] [address]37811-11-2025 13:29-0500 Systolic blood ctnioupp129 mm[Hg]Efrain Bowling MD Work Phone: [phone]02-05-2025 14:24-0500 Body vywmnk431.18 cmUniversity [facility]als [facility]02-05-2025 14:24-0500Body mass index (BMI) [Ratio]35.2 kg/d9DyhdaupgjUniversity Hospitals [facility] Center02-05-2025 14:24-0500Body oxdyeblwjat45.7 [degF][facility]02-05-2025 14:24-0500Body .2 kgUniversity [facility]als [facility]02-05-2025 14:24-0500Diastolic blood ukvzdnxw34 mm[Hg][facility] 10-16-2024 14:24-0500Heart rate86 /minUniversity Hospitals Geneva Medical Center 10-16-2024 14:24-5467SwA8% (BldA) [Mass fraction]96 %[facility]02-05-2025 14:24-0500Systolic blood uybvdfgg879 mm[Hg][facility]01-06-2025 15:18-0500Body nuptev126.18 cmUniversity [facility]als [facility]01-06-2025 15:18-0500Body mass index (BMI) [Ratio]34.7 kg/m2 [facility]01-06-2025 15:18-0500Body relpgn335.69 kg [facility]01-06-2025 15:18-0500Diastolic blood opyzdbmj24 mm[Hg][facility]01-06-2025 15:18-0500Heart rate70 /min [facility]01-06-2025 15:18-0500Systolic blood soojyyuo420 mm[Hg][facility]09-04-2024 15:36-0400Body rbiwdi973.7 cm Anika Frazier FUR TRIMMING MACHINE OPERATOR Work Phone: noShriners Hospitals for ChildrenYwocrmuysz38-32-1622 15:36-0400Diastolic blood jzfikayz55 mm[Hg]Anika Frazier FUR TRIMMING MACHINE OPERATOR Work Phone: [facility] CenterRigodxpnov32-67-0911 15:36-0400Heart rate70 /min Anika Carpenterr FUR TRIMMING MACHINE OPERATOR Work Phone: noShriners Hospitals for ChildrenYgcrtfuqmj30-49-6094 15:36-6244EmI7% (BldA) [Mass fraction]94 %Anika Frazier FUR TRIMMING MACHINE OPERATOR Work Phone: noShriners Hospitals for ChildrenDvpnzoufix56-89-0231 15:36-0400Systolic blood mm[Hg]Anika Frazier FUR TRIMMING MACHINE OPERATOR Work Phone: [facility] CenterDavlrnjreg07-37-8713 15:30-0500Body tymvvf478.18 cmEfrain Tawnya Other [employer] Other 12-21-2023 15:30-0500Body mass index (BMI) [Ratio] 33.04 kg/i3Pwekky Tawnya Other [employer] Other 12-21-2023 15:30-0500Body .71 kgJacklynlemuel Tawnya Other [employer] Other 12-21-2023 15:30-0500Diastolic blood lwoxxgod81 mm[Hg] Efrain Bowling Other [employer] Other 12-21-2023 15:30-0500Systolic blood wzerimcr748 mm[Hg] Efrain Bowling Other [employer] Other 11-21-2023 08:30-0500Body dkysuj439.18 cmJacklynlemuel Bowling Other [employer] Other 11-21-2023 08:30-0500Body mass index (BMI) [Ratio] 35.14 kg/l1GhbasfEfrain Bowling Other [employer] Other 11-21-2023 08:30-0500Body .79 kgEfrain Bowling Other [employer] Other 11-21-2023 08:30-0500Diastolic blood xpehqxhd67 mm[Hg] Efrain Bowling Other [employer] Other 11-21-2023 08:30-0500Systolic blood utvgsxzb695 mm[Hg] Efrain Bowling Other [employer] Other 08-06-2021 12:05-0400Diastolic blood dyqdlshw72 mm[Hg] Maik Barbosa MD Work Phone: [address] [place], [place] 9286708-06-2021 12:05-0400Heart rate54 /Reva Barbosa MD Work Phone: [facility]08-06-2021 12:05-0400Respiratory rate16 /Reva Barbosa MD Work Phone: [phone] [place], [place] 5807708-06-2021 12:05-5876NcD3% (BldA) [Mass fraction]95 %Maik Barbosa MD Work Phone: [phone] [place], [place] 5807708-06-2021 12:05-0400Systolic blood iucwgdob318 mm[Hg]Maik Barbosa MD Work Phone: [phone])226-[address] [place], [place] 5807707-07-2021 08:04-0400Body height 170.2 cmAtrina Barbosa MD Work Phone: [phone] [place], [place] 5807707-07-2021 08:04-0400Body mass index (BMI) [Ratio]34.61 kg/k3UlgsmMaik Barbosa MD Work Phone: [phone] [place], [place] 5807707-07-2021 08:04-0400Body weight 100.25 kgMaik Barbosa MD Work Phone: [phone] [place], [place] 5807707-07-2021 08:04-0400Diastolic blood mm[Hg]Maik Barbosa MD Work Phone: 1(151)858-[address] [place], [place] 5807707-07-2021 08:04-0400Heart rate74 /Reva Barbosa MD Work Phone: [phone])[phone] [place], [place] 5807707-07-2021 08:04-0400Respiratory rate20 /Reva Barbosa MD Work Phone: 1(521)375-[address] [place], [place] 5807707-07-2021 08:04-5599QhN0% (BldA) [Mass fraction]96 %Maik Barbosa MD Work Phone: [phone])654-[address] [place], [place] 5807707-07-2021 08:04-0400Systolic blood gxiekvkt132 mm[Hg]Maik Barbosa MD Work Phone: 1(317)510-[address] [place], [place] 5807706-16-2021 12:02-0400Diastolic blood mm[Hg]Maik Barbosa MD Work Phone: 1(469)468-[address] [place], [place] 5807706-16-2021 12:02-0400Heart rate55 /Reva Barbosa MD Work Phone: 1(566)017-[address] [place], [place] 5807706-16-2021 12:02-0400Respiratory rate18 /Reva Barbosa MD Work Phone: [phone]06-16-2021 12:02-2451LlP3% (BldA) [Mass fraction]95 %Maik Barbosa MD Work Phone: 1(871)691-[address] [place], [place] 5807706-16-2021 12:02-0400Systolic blood veojvluy911 mm[Hg]Maik Barbosa MD Work Phone: 1(173)253-[address] [place], [place] 5807706-02-2021 11:46-0400Body height 170.2 cmAtrina Barbosa MD Work Phone: [phone])685-[address] [place], [place] 5807706-02-2021 11:46-0400Body mass index (BMI) [Ratio]34.61 kg/k5HqnunMaik Barbosa MD Work Phone: 1(684)457-[address] [place], [place] 5807706-02-2021 11:46-0400Body weight 100.25 kgMaik Barbosa MD Work Phone: [phone])[phone] [place], [place] 5807706-02-2021 11:46-0400Diastolic blood uhdfqzro51 mm[Hg]Maik Barbosa MD Work Phone: 1(178)130-[address] [place], [place] 5807706-02-2021 11:46-0400Heart rate64 /Reva Barbosa MD Work Phone: 1(923)901-[address] [place], [place] 5807706-02-2021 11:46-0400Respiratory rate18 /Reva Barbosa MD Work Phone: 1(369)442-[address] [place], [place] 5807706-02-2021 11:46-6371TgK8% (BldA) [Mass fraction]99 %Maik Barbosa MD Work Phone: [facility]06-02-2021 11:46-0400Systolic blood mrysueej338 mm[Hg]Maik Barbosa MD Work Phone: [facility] Encounters Encounter DateEncounter TypeCare ProviderFacilityStart: 91-97-6171ubiclsnpxf Chata Inman LueFacility:EU BellevueStart: 07-22-2025 End: 87-46-6099igexytzoceKoojjt E Braun MD Work Phone: -[facility] Hospitaltart: 07-22-2025 End: 28-99-8088Zxwsvam encounter procedureEfrain Bowling MD-[facility] Work Phone: Start: 11-75-0567Pwj-patient / Non-visitNicbecca Ambriz [facility] Work Phone: Start: 65-26-6193Wtz-patient / Non-visitBrysilvia Pablo [facility] Work Phone: Start: 05-05-2025 End: 24-55-7632vzknswdagyAggbzbx Chandrakant Fairchild MDFacility:[facility] Start: 03-24-2025 End: 71-75-3758wanirfvyzxAtukras Vegaytpaige Giedraitis MDFacility:[facility] Start: 10-16-2024 End: 90-22-7571efpdgptwdiUoznyzcqnFort [facility] Work Phone: Start: 10-16-2024 End: 95-15-2164Mgpzfzj encounter procedureAt[facility] Work Phone: Start: 09-16-2024 End: 46-93-9720edoodzrevwFpqtasdtxMagruder Hospital Work Phone: Start: 09-16-2024 End: 48-32-1865Pqrrastfz for general adult medical examination without abnormal findingsAvita Health System Ontario Hospitaltart: 09-16-2024 End: 42-67-8094Pbxcuxt encounter procedureAtrium Health [facility] Physician GroupFlower Hospital Work Phone: Start: 07-31-2024 End: 61-80-6350ezzdfggxfiQducm M. LueFacility:EU BellevueStart: 83-29-3757Jfj- patient / Non-visitAtrium Health [facility] Physician GroupWaldo Hospital [facility] Work Phone: Start: 22-47-2472Qhtjxxg encounter statusAvita Health System Ontario Hospitaltart: 31-19-6788Dpn-patient / Non-visitAtrium Health [facility] Physician [facility] Work Phone: Start: 07-22-2024 End: 60-69-2997dwlelyawcqQmabkro Chandrakant Barillasedioana MDFacility:PM Srinath Start: 05-15-2024 End: 62-60-2224npcpucscquBXIAVT MANDYNot AvailableStart: 05-15-2024 End: 27-96-4210Iuqdbk outpatient visit 25 minutesAngecarito Frazier FUR TRIMMING MACHINE OPERATOR Work Phone: noMS SRINATH STATE ROUTEComment on above:PLMD (periodic limb movement disorder) (Primary Dx); Hypersomnia; JOSÉ (obstructive sleep apnea); SnoringStart: 05-15-2024 End: 14-32-3124Kjiizw flowswilmanAngecarito Frazier FUR TRIMMING MACHINE OPERATOR Work Phone: noMS SRINATH STATE ROUTEStart: 05-15-2024 End: 92-95-5052Qwqood flowswilmanAngecarito Frazier FUR TRIMMING MACHINE OPERATOR Work Phone: NOMS SRINATH STATE ROUTEStart: 02-21-2024 End: 08-38-4565hfpgamwptjRYLKIA PASCALENERNot AvailableStart: 12-26-2023 End: 10-76-0792gytycixejhCihbgr E BraunFacility:[facility] Hospitaltart: 07-77-1888Fpv-patient / Non-visitAtrium Health [facility] Physician [facility] Work Phone: Start: 72-19-7218Moc-patient / Non-visitAt[facility] Health [facility] Work Phone: Start: 10-11-7925Muw-patient / Non-visitAt[facility] Health [facility] Work Phone: Start: 48-28-3872Lhd-patient / Non-visitAt[facility] Health [facility] Work Phone: Start: 10-02-2023 End: 63-75-6525Qswcxhr encounter procedureAtrium Health [facility] Physician Group-Start: 08-31-2023 End: 00-75-6491xvyyncjkgeTsleyv Braun Other [employer] Other Start: 88-82-5938Japdvq outpatient visit 15 minutes Efrain [facility] ClinicStart: 08-01-2023 End: 24-86-0200ongzomrmlbYhyhxi Braun Other [employer] Other Start: 46-64-4103Tupyydiez for general adult medical examination without abnormal findingsMarcia [facility] ClinicStart: 34-84-7786Mspnjykb preventive med est patient 40-64yrsMarcia [facility] ClinicStart: 01-06-2023 End: 41-31-3737otyzkicrpiHZ MARCIA E BRAUNFacility:V1Ffrhs: 08-24-2022 End: 68-93-3695fmaljkkuncZB MARCIA E BRAUNFacility:Y4Dhrae: 82-79-4692sddxqriecf DR EFRAIN BOWLINGFacility:U9Fmmcv: 43-40-2535vgpprkrlxkAF EFRAIN BOWLING Facility:O6Iyhym: 49-01-8878avlfqwdkswUU MARCIA E BRAUNFacility:H4Vattf: 07-21-2022 End: 51-14-1839lrybyebcsdIK MEENU IsidroFacility:Q6Tabln: 06-20-2022 End: 79-77-0953wnezarocskMC MARCIA E BRAUNFacility:L1Ncufo: 93-50-0908Uyylxfpvc for general adult medical examination without abnormal findingsDR EFRAIN BOWLING [facility] Hospitaltart: 05-27-2022 End: 97-63-0047gtkrlmdeawJZ MARCIA E BRAUNFacility:U8Opfht: 05-27-2022 End: 76-88-9602Utxvsurpt for general adult medical examination without abnormal findingsDR EFRAIN BOWLINGFacility:H8Fxafp: 01-19-2022 End: 03-24-3759agigpuazrnXQ MARCIA E BRAUNFacility:F5Uqqyy: 04-16-2021 End: 96-88-8923Ypyywyk encounter procedureMaik Barbosa MD Work Phone: [facility] Procedural Pain ManagementComment on above:Lumbar spondylosis (Primary Dx); Chronic pain syndrome; Myofascial painStart: 03-17-2021 End: 50-10-0974Haoztx outpatient visit 15 minutesMaik Barbosa MD Work Phone: [facility] ClinicComment on above:Lumbar spondylosis (Primary Dx); Lumbar radiculopathy; Spinal stenosis of cervical region; Chronic pain syndrome; Myofascial painStart: 02-24-2021 End: 91-83-6957Quafuhrs Support EncounterMaik Barbosa MD Work Phone: [facility] Pain ClinicComment on above:Myofascial pain (Primary Dx)Start: 02-10-2021 End: 09-20-5342Ctfrstmwrm hospital visit by physicianMaik Barbosa MD Work Phone: [facility] Diagnostic RadiologyComment on above: ArrivedStart: 02-10-2021 End: 43-87-6900Ahtnye outpatient new 45 minutesMaik Barbosa MD Work Phone: [facility] Pain ClinicComment on above:Myofascial pain (Primary Dx); Arthropathy of cervical facet joint; Spondylosis of lumbar region without myelopathy or radiculopathy; Chronic pain syndrome; Compliance with medication regimen Procedures DateProcedureProcedure DetailPerforming ClinicianStart: 08-83-9795Ijdxz Strep (POC)Start: 75-03-2314FMH screeningDR EFRAIN BOWLINGComment on above:Performed By: #### PSASC #### [facility] [address] [place] [address] Dr. Mychal OropezaStart: 15-28-5221Fyqtf spine lumbscrl compl w/bending views min 6 Maik Barbosa MD Work Phone: Plan of Treatment DateCare ActivityDetailAuthorStart: 05-21-2021 End: 70-89-6620Ironeaq encounter obcqjkrqb36/10/2021 Office Visit Anesthesiology Pain Mgt Maik Barbosa MD [address] [facility] [place] [address] [facility] Procedural Pain ManagementStart: 29-82-9118DpvqjmepjThompson Cancer [facility], [place], operated by [facility]htart: 05-07-2021 End: 01-34-5559Qyoovls encounter aqssavezo58/27/2021 Office Visit Anesthesiology Pain t Maik Barbosa MD [address] [place] [address] [facility] Procedural Pain ManagementStart: 05-03-2021 End: 89-63-6135Vmuvxka encounter mduieywvg03/23/2021 Office Visit Anesthesiology Pain Mgt Maik Barbosa MD [address] [facility] [place] [address] [phone] [facility] ClinicStart: 04-27-2021 End: 26-44-0158Fuvmktg encounter upbboeguk19/17/2021 Office Visit Anesthesiology Pain Mgt Maik Barbosa MD [address] [facility] [place] [address] [facility]: [facility] End: 91-58-1219Izlsmnl encounter kqqvoojiq49/07/2021 Office Visit Anesthesiology Pain Mgt Maik Barbosa MD [address] [facility] [place] [address] [phone] [facility]: [facility]20[facility] End: 63-32-1303Embqxau encounter qqjocrswf63/16/2021 Office Visit Anesthesiology Pain Mgt Maik Barbosa MD [address] [place] [address] Deven Torres Procedural Pain ManagementStart: 02-10-2021 End: 01-38-3543KXGC SCREEN MED COMPLIANCE IDRUG SCREEN MED COMPLIANCE I Lab Routine Compliance with medication regimen Expected: 02/10/2021, Expires: 02/11/2021[facility]Comment on above:Expected: 02/10/2021, Expires: 02/11/2021tart: 94-33-5895Bcowbxrq specific antigen measurementPROSTATE CANCER SCREENING DISCUSSIONKettering Health Springfieldtart: 19-63-4160Fpddsu vaccine hzv live for subcutaneous useZOSTER (SHINGLES) VACCINE (1 of 2)[facility]: 68-24-1678WkjtenhmctfKEMLKEABDI CANCER SCREENING DISCUSSIONMartins Ferry Hospital Start: 63-92-8381Kdofztl lipid profileLIPID SCREENINGKettering Health Springfieldtart: 78-57-7130Sacqn diphtheria, tetanus and acellular pertussis (DTaP) vaccination TDAP (ADULT)[facility]: 89-45-7789Snwxbil vaccinationTETANUSASamaritan Hospitaltart: 11-74-4831VIT screeningHIV SCREENING DISCUSSIONKettering Health Springfieldtart: 63-36-7315XVSAL-19 VACCINE (1)COVID-19 VACCINE (1)[facility]: 09-53-9844Ecjouemuu C antibody, confirmatory testHEPATITIS C VIRUS SCREENINGMansfield Hospital Payers DatePayer CategoryPayerPolicy [id number]6-9156Pvqzpgq [id number] 1.2.840.658077.1.13.172.2.7.3.060[id number] 2.16.840.1.707101.3.57[id number] 2.16.840.1.346121.3.57[id number] 2.16.840.1.379893.3.57[id number] 2.16.840.1.730065.3.57[id number] 2.840.1.592748.3.57[id number] 2.840.1.047895.3.57[id number] 2.840.1.560010.3.57[id number] 2.840.1.364614.3.57[id number] 2.840.1.911921.3.57[id number] 2.840.1.775534.3.57[id number] 2.840.1.159081.3.57[id number] 2.840.1.617400.3.57[id number] 2.16840.1.962403.3.57[id number] 2.16840.1.950933.3.57[id number] 2..840.1.194651.3.579.2.99539-51-1819Wmmy-[id number] 2.16.840.1.2[id number] 2.16.840.1.796896.3.579.2.531 Social History DateTypeDetailFacilityStart: 02-10-2021 End: 57-45-9928Djbtuvm smoking status NHISNever smokerKettering Health Springfieldtart: 02-10-2021 End: 47-06-4066Kqeaxlc use and exposureNever usedKettering Health Springfieldtart: 02-10-2021 End: 57-74-4489Jdwhwus intakeCurrent drinker of alcohol (finding)[facility]: 02-10-2021 End: 44-50-5615Ojjiqmx intakeKettering Health Springfieldtart: 22-89-7339Bugdrfh Comment 5 beers/weekKettering Health Springfieldtart: 33-77-6404Ovp [facility]igned [facility]Not [facility] file [facility]: 02-21-2024 End: 42-35-5143Vnz Assigned At [facility] [employer] Other Start: 01-64-6816Rcc Assigned At [facility] smoking status NHISUnknown if ever smoked [facility] Work Phone: Start: 09-16-2024 End: 72-04-1829EbkZcew (finding)[facility] Clinical Notes 02-10-2021 to 09-16-2024 Note Date & FbpgEpvjSytsjypj42-07-4468 Evaluation note* Diagnosis Onset Date Resolution Status Admit Date Elevated serum creatinine acuteJanuary 2024 2:49pmWellness examinationacuteJanuary 2024 2:49pm Influenza AacuteFebruary 2024 2:16pm [facility] Work Phone: 1(754) 165-631511-20-2024 NotePatient Education Urology Erectile Dysfunction Erectile dysfunction [...] these instructions at home: Medicines ??? Take lysg-tnr-pqylzqb and prescription medicines only as told by [...] ??? Do not u (more content not included)...[facility]09-04-2024 History of Present illness Narrative* Anika Searsestefany, FUR TRIMMING MACHINE OPERATOR - 05/15/2024 3:30 PM EDT Images from [...] a different pressure . . . Plan Mcdonald Sleepiness Scale is 10 Compliance download reviewed [...] to clinic: 3-4 months documented in this encounterNortheast [facility] Medical CenterNfqlmpaxyc54-69-1885 Evaluation note* Encounter Date Diagnosis Assessment Notes [...] index [BMI] 33.0-33.9, adult (ICD-10 - Z68.33) [employer] Other 11-21-2023 Evaluation note* Encounter Date Diagnosis [...] unspecified (ICD-10 - M54.50)Pt requests referral to [place] [facility]. He hopes to lessen his use of NSAIDs to improve his renal function. Jul,Other chronic pain (ICD-10 - G89.29) Jul,OSA (obstructive sleep apnea) (ICD-10 - G47.33)Form completed for [facility]. Jul,lass 2 obesity with [...] to ER and Follow-up with me immediately. [employer] Other 08-06-2021 History and physical note* Maik [...] bilateral lumbar facet block documented in this [facility]08-06-2021 History of Present illness Narrative* Humera Genao RN - 04/16/2021 11:30 AM EDT SCRUB - Shellie Alaniz RN RT - S RT Zach OCEANIC SCIENCES PROFESSOR - N/A BEEF BONER - Aurelio Genao RN Site cleansed with [...] and earlier as needed. documented in this encounterMartins Ferry Hospital08-06-2021 Instructions* Patient Instructions* Geovanna Degroot RN - 04/16/2021 11:30 AM EDT [facility] WHAT TO EXPECT AFTER A PROCEDURE Follow up appointment: Call the office ([phone]) if you have any questions or develop [...] you, [facility] documented in this [facility]07-07-2021 History of Present illness Narrative* Maik [...] tried OTC tylenol, celebrex with somemild relief. [place] has helped in the past, but would [...] aberrancies noted in the prescribing history. * eGovanna Degroot RN - 03/17/2021 8:15 AM EDT [...] Denies dysuria or frequency documented in this [facility]07-07-2021 Instructions* Patient Instructions* Geovanna Degroot RN [...] complications are extremely rare. documented in this [facility]06-16-2021 History and physical note* Maik Barbosa [...] trapezius, and lumbar paraspinal documented in this [facility]06-16-2021 History of Present illness Narrative* Madina Summers RN - 02/24/2021 11:15 AM EDT PHYSICIAN - SCRUB - Kitty Martinez RN BEEF BONER - Madina Site cleansed with chloroprep. Procedure: [...] Denies dysuria or frequency documented in this encounterMartins Ferry Hospital06-02-2021 History of Present illness Narrative* Maik [...] Social Gatherings with Friends and Family: Attends Christianity Services: Active Member of Clubs or Organizations: [...] tried OTC tylenol, celebrex with somemild relief. [place] has helped in the past, but would [...] within the last year. documented in this encounterMartins Ferry Hospital06-02-2021 Instructions* Patient Instructions* Geovanna Degroot RN [...] read the attached handout from the [employer] with guidelines and recommendations for [...] complications are extremely rare. documented in this encounterPomerene Hospital SystemEvaluation note* Diagnosis Myofascial pain- Primary Mylagia and myositis, unspecified Arthropathy of cervical facet joint Cervical spondylosis without myelopathy Spondylosis of lumbar region without myelopathy or radiculopathy Lumbosacral spondylosis without myelopathy Chronic pain syndrome Compliance with medication regimen documented [facility]* Diagnosis Spondylosis of lumbar region without myelopathy or radiculopathy Lumbosacral spondylosis without myelopathy documented in [facility]* Diagnosis Myofascial pain- Primary Mylagia and myositis, unspecified documented in this [facility]* Diagnosis Lumbar spondylosis- Primary Lumbosacral spondylosis without myelopathy Lumbar radiculopathy Thoracic or lumbosacral neuritis or radiculitis, unspecified Spinal stenosis of cervical region Spinal stenosis in cervical region Chronic pain syndrome Myofascial pain Mylagia and myositis, unspecified documented in this encounter [facility]* Diagnosis Lumbar spondylosis- Primary Lumbosacral spondylosis without myelopathy Chronic pain syndrome Myofascial pain Mylagia and myositis, unspecified documented in this encounter [facility] HospitalEvaluation noteNo assessment information availableMarietta Memorial Hospital Work Phone: Evaluation note* Diagnosis PLMD (periodic limb movement disorder)- Primary Periodic limb movement disorder Hypersomnia Hypersomnia, unspecified JOSÉ (obstructive sleep apnea) Obstructive sleep apnea (adult) (pediatric) Snoring Other dyspnea and respiratory abnormality documented in this encounter [facility]* Diagnosis Onset Date Resolution Status Admit Date Elevated serum creatinine acuteJanuary 2024 2:49pmWellness examinationacuteJanuary 2024 2:49pm [facility] Work Phone: Evaluation note* Diagnosis Onset Date Resolution Status Admit Date Class 1 obesity with body mass index (BM I) of 34.0 to 34.9 in adult acuteNovember 2024 1:25pm [facility] Work Phone: History general Narrative - Reported* Type Description Date Medical History Elevated cholesterol with elevat ed triglycerides Medical HistoryLow serum testosterone levelMedical HistoryLumbar painMedical HistoryHypertensionMedical HistoryDiverticulosisSurgical HistoryR shoulder arthroscopySurgical HistoryFB R wristSurgical HistoryUmbilical hernia repair 07/12/2023Surgical FjfiagtKuboaexqcpv15/15/2023Hospitalization HistorySEE SURGICAL HX [employer] Other Reason for referral (narrative)No reason for referral information availableOhiohealth Pickerington [facility] Hospital Work Phone: Reason for Referral StatusReasonSpecialtyDiagnoses / ProceduresReferred By ContactReferred To ContactAuth Not Needed Diagnoses Myofascial pain Chronic pain syndrome Maik Barbosa MD [address] [place] [address] Scheduling Instructions Please PA and schedule: neck and back TPI (pt will need a [address] Barbosa) Reason *FU 08/08 chronic lumbar pain, would benefit from less NSAID use. Diagnosis 1 Low back pain, unspe cified (M54.50) Referral Organization [facility] xochitl Referring Provider First Name Efrain Referring Provider Last Name Tawnya Referring Provider Specialty Family [facility] Referred Organization [facility] Referred Address [facility] [address], [place],[address] Referred Provider Specialty Pain Medicin e Referral Priority Routine General Notes Es Cooper 05:14:13 PM >received today, attachments made, notes locked, referral faxed Clinical Notes f: [id number] Summary Purpose Family History Relationship Condition Age [...] Chronic pain syndrome Maik Barbosa MD [address] [place] [id number] ReasonCommentsPainSpecialtyDiagnoses / ProceduresReferred By ContactReferred To Contact Diagnoses Lumbar facet arthropathy Maik Barbosa MD [address] [place] [address] Referral IDStatusReasonStart DateExpiration DateVisits RequestedVisits [id number] (unrecognized sect ion and content) No Status Records FoundNo Status Records FoundNo Status Records FoundNo Status Records FoundNo Status Records FoundNo Status Records Found INFORMATION SOURCE (unrecogn ized section and content) DATE CREATED AUTHOR 05/10/2021 [facility] DATE CREATED AUTHOR AUTHOR'S ORGANIZ ATION 01/13/2023 [facility] DATE CREATED AUTHOR AUTHOR'S ORGANIZ ATION 12/28/2023 [facility] DATE CREATED AUTHOR AUTHOR'S ORGANIZ ATION 05/17/2024 [facility] DATE CREATED AUTHOR AUTHOR'S ORGANIZ ATION 05/10/2025 [facility] DATE CREATED AUTHOR AUTHOR'S ORGANIZ ATION 07/18/2025 [facility] Care Teams (unrecognized sec tion and [...] DateEnd Date Efrain Bowling MD [address] [place] [address] PCP - [facility]02/10/21 Team Status: Inactive Member Role Status Dates [...] DateEnd Date Efrain Bowling MD [address] [place] [phone] PCP - GeneralFamily Medicine02/21/24Team MemberRelationshipSpecialtyStart DateEnd Date Efrain Bowling MD [address] [place] [address] PCP - GeneralFamily Medicine02/21/24 Team Status: Inactive Member Role Status Dates Efrain Bowling MD Primary Care Provider Active Start: October 16, 2024 End: October 16, 2024Geovanna Clarke APRN FUR TRIMMING MACHINE OPERATOR-CAttending ProviderActive Start: October 16, 2024 End: October [...] BE BASED ON THE PRIMARY CLINICAL RECORDS. [employer] [facility]. provides no warranty or guarantee of the accuracy or completeness of information in this document.
[2025-08-04 12:45] VITALS: BP 115/71; PULSE 66; TEMP 36.3; O2SAT 99
[2025-08-04 13:07] VITALS: BP 132/83; BP 132/84; PULSE 65; PULSE 70; O2SAT 96; O2SAT 98
[2025-08-04] MEDS: BUPIVACAINE HCL 0.25% PF 25 MG/10 ML VIAL 5 ML INJ (13:09)
[2025-08-04] MEDS: LIDOCAINE HCL 2% 400 MG/20 ML MDV INJ (13:10)
[2025-08-04] MEDS: TRIAMCINOLONE ACETONIDE 40 MG/ML VIAL INJ ×2 (13:12→13:14)
--- NOTE | 2025-08-04 13:25 | P.ON_ITS ---
Date of procedure: 08/04/25 Pre-op diagnosis: Pain due to lumbar spondylosis without myelopathy Post-op diagnosis: same as pre-op Procedure: Procedure: Bilateral L4-5, L5-S1 radiofrequency ablation Medications: Bupivacaine 0.25% 6cc, lidocaine 2% 6cc, kenalog 80mg The patient was seen and examined in the preoperative holding area.? The site was marked.? Written informed consent was obtained and placed on the chart.? The patient was brought to the medical procedure unit and placed in the prone position.? A timeout was completed verifying correct patient, procedure, positioning, and special requirements.? The skin overlying the target points, the designated medial branch, were prepped and draped in the usual sterile fashion.? The target point was achieved with a 20-gauge 15 cm with a 10 mm curved active tip radiofrequency cannula under direct fluoroscopic visualization.? The needle was inserted at level L4 on the right side. Needle tip position was confirmed with lateral fluoroscopic position.? Motor stimulation was carried out at 2 Hz up to 5 volts with the absence of extremity activity.? This was repeated at level L5, S1 on right side.?? Sensory stimulation was carried out.? Concordant pain was realized at the above- mentioned sites.? Then radiofrequency lesioning was carried out times 90 seconds at 80 degrees times 2 lesions at each level.? The radiofrequency probe was removed prior to cannula removal.? The above-mentioned injectate was placed in 1 mL increments.? The needle was removed. The same procedure, with the same steps, was then completed on the left side at the same levels. Insertion sites were covered.? The patient was taken to the postoperative recovery area and monitored for an appropriate length of time before being found suitable for discharge in the company of a responsible adult. Anesthesia: Local Surgeon: Luis Fairchild Pathology: none sent Condition: stable Disposition: no change
--- NOTE | 2025-08-04 13:29 | PC.NURSE ---
1323 pain 03/20 upon discharge
== END 2025-08-04 13:27 | disposition home or self-care (01) ==
PROVIDERS: PCP Family Medicine; Visit Provider Anesthesiology
DX: M47.816 Spondylosis without myelopathy or radiculopathy, lumbar region (principal); M54.50 Low back pain, unspecified; G89.29 Other chronic pain
CPT/HCPCS: 64635; 64636; J0665; J3301

== ENCOUNTER 2025-09-08 10:34 | Outpatient (OUT) | payer BC, SELFPAY ==
--- OUTSIDE RECORDS SUMMARY | 2024-04-18 06:30 | XMS_ITS ---
Author Organization [facility] in [place] Address [address] [place] [address] Care Team Providers Care Library Circulation Technician Name Role Phone Guero FERMIN, Kell Primary Care Provider Unavailab Margaux Barbosa Unavailable [phone] REASON FOR VISIT MD Encounters Encounter Location Date Provider Diagnosis [facility] [address] [place] [phone] 04/18/2024 Margaux Herrera Plan Of Treatment No Information Progress Notes * Manuel BURGOS GDOB: [birth year] (55 yo M)Acc No.[id number]:04/18/2024 UNLOCKED PROGRESS NOTE Progress Notes Patient: Manuel RESENDEZ :?Margaux Estrada M.D.:1970???Age:54 Y ???Sex:MaleDate:4Phone:[phone]:[address] [place], [id number]:Kell Jack MD Subjective: * Chief Complaints: * 1 . MD. * Medical History: Objective: * Vitals: Assessment: Plan: * Treatment: * * Electronic signature of Margaux Herrera MD, [id number] on 09/08/2025 at 10:36 AM ESTSign off status: PendingVisit Status:?ANSPH (Voice) * Provider: Robert Estrada M.D. Date: 0 04/18/2024 Generated for Printing/Faxing/eTransmitting on:?09/08/2025 10:36 AM EST
--- OUTSIDE RECORDS SUMMARY | 2025-08-26 08:45 | XMS_ITS | Continuity of Care Document ---
Author Organization [facility] Address [address] [place] [address] Phone Care Team Providers Care Tuber Machine Operator Helper Name Role Phone Kell Jack MD Primary Care Provider Christian Pablo DO Attending Provider My Villagomez DO Attending Provider [phone] Kell Jack MD Attending Provider Care Teams Patient Care Team Team Status: Active Member Role/Relationship Status Dates Kell Jack MD Primary Care Provider Active Visit Care Team Team Status: Active Member Role/Relationship Status Dates Kell Jack MD Primary Care Provider Active Start: July 08, 2025 Amanda Cerrato ProviderActiveStart: July 08, 2025 Visit Care Team Team Status: Active Member Role/Relationship Status Dates Kell Jack MD Primary Care Provider Active Start: July 09, 2025 Amanda Albarran ProviderActiveStart: July 09, 2025 Visit Care Team Team Status: Inactive Member Role/Relationship Status Dates Kell Jack MD Primary Care Provider Active Start: July 22, 2025 End: July 22, 2025Tl Blas ProviderActiveStart: July 22, 2025 End: July 22, 2025 Patient Care Team Team Status: Inactive Member Role/Relationship Status Dates Kell Jack MD Primary Care Provider Active Start: August 26, 2025 End: August 26, 2025Tl Blas ProviderActiveStart: August 26, 2025 End: August 26, 2025 Chief Complaint and Reason for Visit Chief Complaint Admit Date Discuss Adipex July 22, 2025 1:25pm 1 month f/u August 26, 2025 1:05pm Reason for Visit Admit Date Lumbar back pain July 22, 2025 1:25pm Class 1 obesity with body ma ss index (BMI) of 34.0 to 34.9 in adult July 22, 2025 1:25pm Allergies, Adverse Reactions, Alerts Allergen Type Severity Reaction Last Updated Verified Status No Known Allergies Allergy Unknown August 26, 2025 1:20pmYesActive Social History Smoking Status Unknown if ever smoked Observation Status Observation Response Date of Response Legal Sex Male (finding) Sex Assigned At BirthMaleMay 1969 Family History Relationship Condition Age at Onset Recorded Date/T mita father Hypertension Unknown motherDeceasedUnknown Problems Active Problems Problem Diagnosis/Recorded Date Onset Date Stat us Morbid (severe) obesity due to excess calories August 26, 2025 1:38pm Unknown Active Anemia November 06, 2023 4:43pm Unknown A ctive Wellness examination July 30, 2024 10:01am Unkno wn Active Elevated serum creatinine September 16, 2024 3:33pm Unk nown Active Iron deficiency anemia December 01, 2023 2:54pm Unknown Active Lumbar back pain July 22, 2025 1:54pm Unknown Active Class 1 obesity with body ma ss index (BMI) of 32.0 to 32.9 in adult August 26, 2025 1:38pm Unknown Ac tive Inactive/Resolved Problems Problem Diagnosis/Recorded Date Onset Date Stat us Influenza A October 16, 2024 2:40pm Unknown Re solved Class 1 obesity with body ma ss index (BMI) of 34.0 to 34.9 in adult July 22, 2025 1:46pm Unknown Re solved Medications Medication Status Dose Units Route Directions Qty Days Refills S tart Date Stop Date End Date Reason(s) Instructions Adherence Atenolol-Chlorthalidone 50-25 mg tablet Discontinued 0 .ROUTE.PMOAUIG974Pesmh 2023 12:09pmSeptember 2023 12:23pmTAKE 1 TABLET BY MOUTH EVERY DAYDuloxetine 30 mg capsule,delayed release(DR/EC) Discontinued0.ROUTE.EFOOFVD557Nyydu 2023 8:30amJuly 2023 2:55pmTAKE 1 CAPSULE BY MOUTH EVERY DAYDiclofenac Sodium 75 mg tablet,delayed release (DR/EC) Discontinued0.ROUTE.OBTFSFM207Iyhbt 2023 11:59amJune 2023 7:38amTAKE 1 TABLET BY MOUTH TWICE A DAYDiclofenac Sodium 75 mg tablet,delayed release (DR/EC)Discontinued0.ROUTE.ALGCRZW919Pvxo 2023 7:38amAugust 2023 12:53pmTAKE 1 TABLET BY MOUTH TWICE A DAYDuloxetine 30 mg capsule,delayed release(DR/EC)Discontinued0.ROUTE.VUBLADC823Prnx 2023 2:55pmOctober 2023 9:26amTAKE 1 CAPSULE BY MOUTH EVERY DAYDiclofenac Sodium 75 mg tablet,delayed release (DR/EC)Discontinued0.ROUTE.BUWGLBE328Ntfmof 6th, 2024 12:53pmOctober 2023 7:24amTAKE 1 TABLET BY MOUTH TWICE A DAYAtenolol- Chlorthalidone 50-25 mg tabletDiscontinued0.ROUTE.OKJUDYR680Syrqbtfwj 4th, 2024 12:22pmFebruary 2024 10:15amTAKE 1 TABLET BY MOUTH EVERY DAYDuloxetine 30 mg capsule,delayed release(DR/EC)Discontinued0.ROUTE.OMKCDIP330Iveyzby 3rd, 2024 9:26amOctober 2023 8:07pmTAKE 1 CAPSULE BY MOUTH EVERY DAYDiclofenac Sodium 75 mg tablet,delayed release (DR/EC)Discontinued0.ROUTE.RRPHROB812Jkzdoax 2023 7:24amDecember 2023 8:25amTAKE 1 TABLET BY MOUTH TWICE A DAY Duloxetine 30 mg capsule,delayed release(DR/EC)Discontinued0.ROUTE.GQFKPRY203 July 05, 2024 8:07pmMarch 2024 9:24amTAKE 1 CAPSULE BY MOUTH EVERY DAYDiclofenac Sodium 75 mg tablet,delayed release (DR/EC)Discontinued0.ROUTE .GHGQEKU789Xwjborek 10th, 2024 8:25amFebruary 2024 12:21pmTAKE 1 TABLET BY MOUTH TWICE A DAYDiclofenac Sodium 75 mg tablet,delayed release (DR/EC) Discontinued0.ROUTE.BSRNUKS842Fddelkqa 2024 12:20pmJuly 22, 2025 1:41pmTAKE 1 TABLET BY MOUTH TWICE A DAYAtenolol-Chlorthalidone 50-25 mg tablet Discontinued0.ROUTE.KMXLZTW651Yhexiobo 2024 10:15amAugust 2024 12:51pmTAKE 1 TABLET BY MOUTH EVERY DAYDuloxetine 30 mg capsule,delayed release(DR/EC)Discontinued0.ROUTE.KMQHXYJ174Inoay 2024 9:23amNoveer 2024 1:41pmTAKE 1 CAPSULE BY MOUTH EVERY DAYAtenolol-Chlorthalidone 50-25 mg tabletDiscontinued0.ROUTE.SVNQLIY881Kbhelp 2024 12:51pmNovsierra vista regional [facility] 2024 12:21pmTAKE 1 TABLET BY MOUTH EVERY DAYAtenolol-Chlorthalidone 50-25 mg tabletActive0.ROUTE.DNZHYCN492Rnhtcmag 19th, 2025 12:21pmTAKE 1 TABLET BY MOUTH EVERY DAYComplies with drug therapyOseltamivir (Tamiflu) 75 mg capsule Tjpnkhxgsrlh77HZXFKpflz toxsl5688Uzwbagji 5th, 2025 12:00amNove2024 1:33pmInfluenza due to influenza virus, type A, humanBenzonatate 200 mg capsule Vhnnkbifcxhl768NGOTKkasi times daily as needed for phhdx03519Wlrrqiwy 5th, 2025 12:00amNove2024 1:32pmInfluenza due to influenza virus, type A, human Diclofenac Sodium 75 mg tablet,delayed release (DR/EC)Active0.ROUTE.ANFIAJJ492 July 22, 2025 1:41pmTAKE 1 TABLET BY MOUTH TWICE A DAYComplies with drug therapyPhentermine (Adipex-P) 37.5 mg tuliphDjsfhmbhkghz47.8HCTPRtgax50333 July 22, 2025 12:00amDeceer 2024 1:36pmClass 1 obesity with body mass index (BMI) of 34.0 to 34.9 in adult Obesity, class 1 Body mass index [BMI] 34.0-34.9, adultmust administer 30 minutes before or 1-2 hours after breakfastAtenolol-Chlorthalidone 50-25 mg gxpiwqNhnufhmazduz9HCQHN DailyInspira Medical Center Vinelandch 2023 11:00pmMarch 2023 12:09pmDuloxetine 30 mg capsule,delayed release(DR/EC)Kcynjybkkxko19RFFGUvmljYdqrr 2023 11:00pm December 20, 2023 8:30amDiclofenac Sodium 75 mg tablet,delayed release (DR/EC) Jrhlwgwmvaxq25NEDROnymv dailyApril 2023 11:00pmApril 2023 11:59am Tadalafil 20 mg uohxloKdddot97YDSRTnxtUluwbxp 2024 12:00amFreeTextSi tablet prn; Note: Source Status: Taking; Provider: Guero Castorena ( )Complies with drug therapyPhentermine 37.5 mg qehwhdMkgzaupxhzzh32.5 MGPODailyJanuary 2024 12:00amJanuary 2024 3:23pmFreeTextSi tablet before breakfast Orally Once a day; Note: Source Status: Refill; Refills: 0; Q ty: 30 Tablet; Provider: Guero Castorena EMethocarbamol (Robaxin) 100 mg/mL odeaouiuGpysqw2TJBFVkkaz 8 hoursJanuary 2024 12:00amComplies with drug therapyTestosterone (Androgel) 1.62 % (20.25 mg/1.25 gram) gel in packetActive1 PACKETTRANSDERMLDailyJanuary 2024 12:00amapply to max area of ONE upper arem and shoulderComplies with drug therapyZonisamide 100 mg ciiafggOpejxl552UB PODailyJanuary 2024 12:00amComplies with drug therapyDoxepin 10 mg capsule Oyvnbjgzoynu49PXEZMrzdjHyknyzz 2024 12:00amNovember 2024 1:33pm Tizanidine 4 mg weitwuTpsuqpcjucqj6BUKNLcbge at bedtime as neededSeptember 16, 2024 12:00amNovember 2024 1:34pm Relevant Diagnostic Tests and/or Laboratory Data Laboratory Results Test Collection Date/Time Result Date/Time Result Interpretation Reference Range Result Comment Performing Site Testosterone Level July 08, 2025 9:16am June 122024 9:16am 616 ng/dL 264-916Adult male reference interval is based on a population ofhealthy nonobese males (BMI <30) between 19 and 39 yearsold. Joni et.al. JCEM 2017,102;5932-2768. PMID:85004692.Performed at: [address] [id number] Director: Checo Pitts PhD, Phone: [phone] Prostate Specific Antigen ScreenOct2024 9:16amOctober 2024 9:16am1.21 ng/mL<=4.00Cholesterol/HDL RatioOctober 2024 9:16amOctober 2024 9:16am5.13.3 - 4.4 LOW RISK4.4 - 7.1 AVERAGE RISK7.1 - 11.0 MODERATE RISK>11.0 HIGH RISKAnion GapOct2024 9:16amOctober 2024 9:16am 13.7Basophils # (Auto)July 08, 2025 9:16amOctober 2024 9:16am0.1 10 3/uL0.0-0.1Cholesterol LevelOct2024 9:16amOctober 2024 9:16am 184 mg/dL<=200Albumin/Globulin RatioOctober 2024 9:16amOctober 2024 9:16am1.1Basophils (%) (Auto)July 08, 2025 9:16amOctober 2024 9:16am 1.4 %0.2-2.0HDL CholesterolOct2024 9:16amOctober 2024 9:16am36 mg/dLBelow low tiultg66-54> or =60 mg/dl - LOW CARDIOVASCULAR RISK<40 mg/dl - HIGH CARDIOVASCULAR RISKAlbuminOctober 2024 9:16amOctober 2024 9:16am3.9 g/dL3.4-5.0Eosinophils # (Auto)July 08, 2025 9:16amOctober 2024 9:16am0.5 10 3/uL0.0-0.7LDL Cholesterol, CalculatedOct 2024 9:16amOct2024 9:06oq067.0 mg/dL<100 mg/dl APYRRDQ240-316 mg/dl NEAR OR ABOVE NNPRWVC221-745 mg/dl BORDERLINE BPWO069-913 mg/dl HIGH>190 mg/dl VERY HIGHAlkaline PhosphataseOctober 2024 9:16amJuly 08, 2025 9:16am82 U/L 46-116Eosinophils (%) (Auto)July 08, 2025 9:16amOct2024 9:16am 6.1 %0.9-7.0Triglycerides LevelOct2024 9:16amOct2024 9:08bp532 mg/dL<=150Alanine Aminotransferase (ALT/SGPT)July 08, 2025 9:16am July 08, 2025 9:16am66 U/LAbove high bujidh26-15TqdtgtakpdLuwnyog 2024 9:16amOct2024 9:16am46.8 %42.0-54.0VLDL CholesterolOctober 2024 9:16amJuly 08, 2025 9:16am28.8 mg/dLAspartate Amino Transf (AST/SGOT) July 08, 2025 9:16amOct2024 9:16am34 U/V81-17QfxrmeycpqEwypsxw 28th, 2025 9:16amOct2024 9:16am15.6 g/dL14.0-18.0BUN/Creatinine Ratio July 08, 2025 9:16amOct2024 9:16am11.1Immature Granulocyte # (Auto)July 08, 2025 9:16Oct2024 9:16am0.02 10 3/uL0.00-0.03 Blood Urea NitrogenOctober 2024 9:16amOct2024 9:16am16.0 mg/dL 7.0-18.0Immature Granulocyte % (Auto)July 08, 2025 9:16amOct2024 9:16am0.2 %0.0-0.5Calcium LevelOct2024 9:16amOctober 2024 9:16am9.8 mg/dL8.5-10.1Lymphocytes # (Auto)July 08, 2025 9:16amOctober 2024 9:16am3.6 10 3/uL1.2-3.8Chloride LevelOct2024 9:16am July 08, 2025 9:43ah985 mmol/V13-417Hljioeoquog (%) (Auto)July 08, 2025 9:16amOctober 2024 9:16am44.6 %20.5-60.0Carbon Dioxide LevelOct2024 9:16amOctober 2024 9:16am27.1 mmol/L21.0-32.0Mean Corpuscular HemoglobinOctober 2024 9:16amOct2024 9:16am27.8 pg25.9-34.0 CreatinineOctober 2024 9:16amOctober 2024 9:16am1.44 mg/dLAbove high normal0.70-1.30Mean Corpuscular Hemoglobin ConcentOct2024 9:16am July 08, 2025 9:16am33.3 g/dL29.9-35.2Estimated GFR () July 08, 2025 9:16amOct2024 9:16am>60>=60 mL/min/1.73m 2Mean Corpuscular VolumeOct2024 9:16amOctober 2024 9:16am83.4 fL 80.0-94.0Estimated GFR (Non- AmericanOct2024 9:16amOctober 2024 9:60gf91Rbrep low normal>=60 mL/min/1.73m 2Monocytes # (Auto)July 08, 2025 9:16amOctober 2024 9:16am0.7 10 3/uL0.3-0.8GlobulinOct2024 9:16amOctober 2024 9:16am3.6 g/dLMonocytes (%) (Auto)July 08, 2025 9:16amOctober 2024 9:16am8.3 %1.7-12.0Glucose LevelOct2024 9:16amOct2024 9:02yg147 mg/jP36-086Gxyn Platelet Volume July 08, 2025 9:16amOct2024 9:16am9.9 fL9.5-13.5Potassium Level July 08, 2025 9:16amOct2024 9:16am3.8 mmol/L3.5-5.1Neutrophils # (Auto)July 08, 2025 9:16amOctober 2024 9:16am3.2 10 3/uL1.4-6.5 Sodium LevelOct2024 9:16amOct2024 9:67sr894 mmol/V799-264 Neutrophils (%) (Auto)July 08, 2025 9:16amOct2024 9:16am39.4 % Below low .0-75.0Total BilirubinOct2024 9:16amOctober 2024 9:16am0.5 mg/dL0.2-1.0Platelet CountOct2024 9:16amOctober 2024 9:27xd830 10 3/jA568-346Breja ProteinOct2024 9:16amOctober 2024 9:16am7.5 g/dL6.4-8.2Red Blood CountOctober 2024 9:16amOctober 2024 9:16am5.61 10 6/uL4.70-6.10Red Cell Distribution WidthOct2024 9:16amOctober 2024 9:16am14.2 %11.0-15.0Corrected White Blood CountOct2024 9:16amOct2024 9:16am8.0 10 3/uL4.0-11.0 Vital Signs Vital Reading Result Reference Range Collection Date/Time Height 67 [in_i] July 22, 2025 1:70siWykpns564.26 kgNovember 2024 1:29pmHeart Rate74 /uye54-822Dkpewomo 2024 1:29pmBP Qewpdido785 mm[Hg]100-140November 2024 1:29pmBP Byykzgrad15 mm[Hg]60-100November 2024 1:29pmBMI (Body Mass Index)34.9 kg/r7Yvknzhre 2024 1:42ngNuljdr27 [in_i]August 26, 2025 1:43ziEzrrsl28.89 kgDeceer 2024 1:20pmHeart Rate55 /mob03-284Yacwadyn 2024 1:20pmBP Pfxmualv915 mm[Hg]100-140[facility] 2024 1:20pmBP Lnqaqwixq73 mm[Hg]60-100Deceer 2024 1:20pmBMI (Body Mass Index)32.4 kg/n8Ftmjrway 2024 1:20pm Advance Directives Advance Directive Response Recorded Date/ Time Advance Directives No December 25 024 2:00pm Insurance Providers Guarantor Manuel Burgos Address [address] [place], [place] [address]Contact Info.Home Phone: Coverage Status Update:2024 Payer Group Member ID Coverage Type Subscriber Relationship to Subscriber Effective Date Expiration Date Myah CHO Id: [id number] Clinker Id: [id number] [facility] [address] Home Phone: Email: [email or web address] [email or web address] L Clinker Id: [id number] 4105 [facility] [address] Home Phone: Email: [email or web address] Encounters Encounter Location(s) Arrival/Admit Date Discharge/Departure Date Discharge/Departure Disposition Provider(s) Non-patient / Non-visit -[facility] O ctober 2024 10:16am Manuel Cerrato-patient / [facility] OutPtOctober 2024 11:59pmTeddy Crainarted Physician/Provider Office Visit-[facility] 2024 1:25pmNov2024 1:46pm Discharged to home care or self care (routine discharge)Kell Jack MD [facility]arted [facility] 2024 1:38pmDischarged to home care or self care (routine discharge)Kell Jack MD Recent Diagnosis Onset Date Admit Date Lumbar back pain Unknown July 22, 2025 1:25pm Class 1 obesity with body ma ss index (BMI) of 34.0 to 34.9 in adult Unknown July 22, 2025 1:25pm Assessments Diagnosis Onset Date Resolution Status Admit Date Lumbar back pain acuteNov2024 1:25pmClass 1 obesity with body mass index (BMI) of 34.0 to 34.9 in adultinactiveNov2024 1:25pm Plan of Treatment Author Kell [facility] CenterAuthoredNov2024 1:56pmAdipex prescribed. He understands it is a controlled substance and a stimulant. Stop medication and call/go to ER if tachycardia occurs. Do not take it w caffeine or other stimulants. While his exercise is limited, discussed changes in nutrition to improve weight as well. Diclofenac refilled. Followup w Pain mgmt as scheduled. Future Tests Future scheduled test information is unavailable Pending Tests Pending diagnostic test information is unavailable Future Visits Future appointment information is unavailable Future Procedures Future procedure information is unavailable Future Medications Future medication information is unavailable Patient Instructions Instruction Admit Date Low back pain in adults July 22 1:25pm
--- OUTSIDE RECORDS SUMMARY | 2025-09-08 10:37 | XMS_ITS | Patient Health Record ---
Author Organization [facility] [place] Address [address] [place] [address] Care Team Providers Care Gravure Press Set Up Operator Name Role Phone Kell Jack MD [...] Coverage End Date [employer]ITIONAL [address] [place] [address] [id number] Manuel Burgos Self - patient is the insured AN[employer] ACCESS PPO PLUS LOCAL PLAN[address] [place] [address] [id number], EricaSpouse - patient is the spouse of the insured
--- OUTSIDE RECORDS SUMMARY | 2025-09-08 10:37 | XMS_ITS | Clinical Summary ---
Author Organization [facility] Address [address] [place] [address] Care Team Providers Care Paint Striping Machine Operator Name Role Phone Kell Jack MD Primary Care Provider [phone] Allergies No known active allergies Medications MedicationSigDispense [...] PUMPS TO CLEAN, DRY, INTACT SKIN EVERY YAUGZYU6001/30/2024ctive doxepin (SINEquan) 10 MG capsule Indications:JOSÉ (obstructive sleep apnea),Hypersomnia,PLMD (periodic limb movement disorder)TAKE 1 TO 2 CAPSULES BY MOUTH EVERY DAY AT BEDTIME 180 capsule 5Active Active Problems ProblemNoted DateDiagnosed DatePLMD (periodic limb movement disorder)05/15/2024 Nuawauqjlxf14/04/2024OSA (obstructive sleep apnea)05/15/20245927Lehznqm60/04/2024 Family History Medical HistoryRelationNameCommentsDiabetesFatherHeart diseaseFatherRelationName StatusCommentsFather Social History Tobacco UseTypesPacks/DayYears UsedDateSmoking Tobacco: NeverSmokeless Tobacco: NeverAlcohol UseStandard Drinks/WeekCommentsYes7 (1 standard drink = 0.6 oz pure alcohol)Sex and Gender InformationValueDate RecordedSex Assigned at BirthNot on fileLegal TfsUngj3701/30/2024 3:33 PM EDTGender IdentityNot on fileSexual OrientationNot on file Last Filed Vital Signs Vital SignReadingTime TakenCommentsBlood Cbxiojrw650/8405/15/2024 3:36 PM EDT Yrqbh668405/15/2024 3:36 PM EDTTemperature--Respiratory Bmax348302/21/2024 3:27 PM EDTOxygen Lwwlsnnnep02%05/15/2024 3:36 PM EDTInhaled Oxygen Concentration-- Rjuffa45.8 kg (220 lb)02/21/2024 3:27 PM RERWlpamv577.7 cm (5' 8 )05/15/2024 3:36 PM EDTBody Mass Index33.45002/21/2024 3:27 PM EDT Plan of Treatment Health MaintenanceDue DateLast DoneCommentsCT Npkayiynxnsl1970Colonoscopy 1970Colorectal Cancer Qireujdco1970FIT-DNA1970FIT1970 FOBT1970 7891Xxyeluipxqgdx1970Influenza Vaccine (#1)2025 Pneumococcal Vaccine: Pediatrics (0 to 5 Years) and At-Risk Patients (6 to 64 Years)Aged OutNo longer eligible based on patient's age to complete this topic Insurance Care Teams Team MemberRelationshipSpecialtyStart DateEnd Date Kell Jack MD [facility] [place]02/21/24
--- OUTSIDE RECORDS SUMMARY | 2025-09-08 10:37 | XMS_ITS | Clinical Summary ---
Author Organization [employer] [facility] Address [facility] [place] [address] [place] [address] Care Team Providers Care Room Service Waiter/Waitress Name Role Phone Kell Jack MD Primary Care Provider [phone] Allergies No known active allergies Medications MedicationSigDispense [...] BY MOUTH ONCE DAILY NEEDED FOR ERECTILE QSAZHFAZXHK65/03/2022 Active testosterone (ANDROGEL) 20.25 mg/1.25 gram (1.62 %) gel in metered-dose pump APPLY 2 PUMPS TO SKIN EVERY YMWEEBI2006/23/2022ctive omega 0-jdr-txr-fish oil (Fish OiL) 300-1,000 mg capsule Take by mouth.Active ascorbic acid, vitamin C, (ascorbic acid) 250 mg tablet,chewable Chew and swallow.Active ergocalciferol, vitamin D2, (VITAMIN D2 ORAL) Take by mouth.Active B-complex with vitamin C tablet Take 1 tablet by mouth in the morning.Active Active Problems ProblemNoted DateDiagnosed AugfDfakmjtp27/26/2232Jbsgdeiuwhyp10/26/2022 Family History Medical HistoryRelationNameCommentsDiabetesFatherHeart diseaseFatherCancer Maternal AuntNo Known ProblemsMotherCancerPaternal GrandfatherHodgkin's lymphoma Paternal GrandfatherCancerPaternal GrandmotherLung cancerPaternal Grandmother RelationNameStatusCommentsFatherAliveMaternal AuntDeceasedMotherDeceasedPaternal GrandfatherDeceasedPaternal GrandmotherDeceased Social History Tobacco UseTypesPacks/DayYears UsedDateSmoking Tobacco: NeverSmokeless Tobacco: Never Tobacco Cessation:Counseling Given: Not Answered Alcohol UseStandard Drinks/WeekCommentsYes0 (1 standard drink = 0.6 oz pure alcohol)5-7 WKLY of whateverChildcareAnswerDate RecordedChildcareUnknown 02/20/2019EmploymentAnswerDate YddudgksWhrnveqwtoBxpnhxk95/12/2019Hunger ScreeningAnswerDate RecordedWithin the past 12 months we worried whether our food would run out before we got money to buy more.Never True07/27/2023Food Insecurity - InabilityNot on file07/27/2023urpose - LifeAnswerDate Recorded Purpose and direction in ufykSlzzhzk01/11/2021ex and Gender InformationValue Date RecordedSex Assigned at SjtdgTler46/20/2022 3:24 PM EDTLegal SexMale 04/16/2015 12:12 PM EDTGender NklvhpdtPycw18/20/2022 3:24 PM EDTSexual OrientationNot on file Last Filed Vital Signs Vital SignReadingTime TakenCommentsBlood Pbbpvwcs387/9407/27/2023 2:29 PM EST Wnxsw305707/27/2023 2:29 PM CNKSosryiakstf68.9 ??C (98.4 ??F)07/06/2022 10:19 AM EDTRespiratory Rate--Oxygen Saturation--Inhaled Oxygen Concentration--Weight 100.2 kg (221 lb)07/27/2023 2:29 PM PZZTzjqoi791.2 cm (5' 7 )07/27/2023 2:29 PM ESTBody Mass Index34.6107/27/2023 2:29 PM EST Plan of Treatment Health MaintenanceDue DateLast DoneCommentsDepression Iedhsdoyz92/30/1982Tobacco Pgedagcdp16/30/1982Zoster (Shingles) Vaccine (1 of 2)02/08/2020Adult BMI Jzsiiokyl443COVID-19 Vaccine ( season)2025 07/21/2022, 08/03/2021, 10/21/2020, Additional history existsInfluenza Vaccine /11/2008DTaP,Tdap and Td Vaccines (2 - Td or Tdap)05/09/2027 05/09/20179463Wsertjxgvin47 Medical Devices Not on file Procedures Procedure NamePriorityDate/TimeAssociated DiagnosisCommentsCOLONOSCOPYRoutine 06/28/2023 Screening for cancer from Last 3 Months or Most Recently Relevant to Health Maintenance Results * Colonoscopy (06/28/2023) Narrative Authorizing ProviderResult TypeResult StatusMichaescarlet SMITH PROCEDURE ORDERABLESFinal ResultPerforming OrganizationAddressCity/State/ZIP CodePhone Number MANUALLY TRANSCRIBED RESULTS from Last 3 Months or Most Recently Relevant to Health Maintenance Insurance Care Teams Team MemberRelationshipSpecialtyStart DateEnd Date Kell Jack MD [address] [place] [address] PCP - [facility]05/31/22
--- OUTSIDE RECORDS SUMMARY | 2025-09-08 10:37 | XMS_ITS | Clinical Summary ---
Author Organization [facility] Address [address] [place] [address] Care Team Providers Care Hospital Medicine Director Name Role Phone Kell Jack MD Primary Care Provider [phone] Medications MedicationSigDispense QuantityRefillsLast FilledStart DateEnd DateStatus diclofenac EC [address] tablet 02/05/2021ctive Testosterone 20.25 MG/ACT (1.62%) Gel gel APPLY 1 PUMP TOPICALLY EACH WOLPNOV7801/09/2021ctive atenolol-chlorthalidone 50-25 MG tablet 02/05/2021ctive Multiple Vitamins-Minerals [...] Problems ProblemNoted DateDiagnosed DateObesity (BMI 30.0-34.9)03/17/2021ssential (primary) bxtsemtndkzv35/07/2021 Social History Tobacco UseTypesPacks/DayYears UsedDateSmoking Tobacco: NeverSmokeless Tobacco: NeverAlcohol UseStandard Drinks/WeekCommentsYes5 (1 standard drink = 0.6 oz pure alcohol)5 beers/weekSex and Gender InformationValueDate RecordedSex Assigned at BirthNot on fileLegal UkfKsuw2502/09/2021 11:59 AM EDTGender IdentityNot on file Sexual OrientationNot on file Last Filed Vital Signs Vital SignReadingTime TakenCommentsBlood Aunlkptj575/9008 3:41 PM EDT denies dizziness/lightheadedness.Clncm6043 3:41 PM EDTTemperature-- Respiratory Cxst1370 3:41 PM EDTOxygen Tkqjengwre05%05/07/2021 3:41 PM EDTInhaled Oxygen Concentration--Jeyxkm74.9 kg (218 lb)04/27/2021 11:09 AM EDT Ihlark242.2 cm (5' 7 )04/27/2021 11:09 AM EDTBody Mass Index34.1408 11:09 AM EDT Plan of Treatment Health MaintenanceDue DateLast DoneCommentsHEPATITIS C VIRUS ETENBFWOT1970 HIV SCREENING RKVFUZMERQ35/30/1985HEP B VACCINE (1 of 3 - 19+ 3-dose series) 1989LIPID OHOEQJYNG97/30/2010COLORECTAL CANCER SCREENING DISCUSSION 2015PNEUMOCOCCAL VACCINE SERIES (1 of 1 - PCV)02/08/2020ZOSTER (SHINGLES) VACCINE (1 of 2)02/08/2020PROSTATE CANCER SCREENING FVHMGGGNST62/30/2025OVID-19 VACCINE (1 - 2024- season)2025INFLUENZA VACCINE (#1)/11/2008 EDQXBEM58TDAP (ADULT)Msyybvxnl43/29/2017 Insurance Care Teams Team MemberRelationshipSpecialtyStart DateEnd Date Kell Jack MD [facility] - [facility]21
--- OUTSIDE RECORDS SUMMARY | 2025-09-08 10:43 | XMS_ITS | CCD ---
Author Organization [facility] Care Team Providers Care Senior Counsel Commercial Name Role Phone Efrain Bowling MD Primary [...] Care Provider Christian Pablo DO Attending Provider [phone] Mina Villagomez DO Attending Provider Efrain Bowling MD Attending Provider Allergies Allergy ClassificationReported Allergen(s)Allergy TypeDate of OnsetReaction(s) Facility (2 sources)patient allergy list reviewed by nurse or physiciaPropensity to adverse -[phone]:[employer] Other (2 sources)Allergies ReconciledPropensity to adverse reactionsBloomington Hospital Of Orange CountyWatly BV Other Medications Current Medications MedicationDrug Class(es)DatesSig (Normalized)Sig (Original)Amoxicillin (1 source)Penicillin-class AntibacterialAmoxicillin Activeatenolol 50 mg / chlorthalidone 25 mg oral tablet (20 sources)Thiazide-like Diuretic, beta-Adrenergic BlockerStart: 16-67-6959jkuh 1 tablet by mouth once dailyAtenolol-Chlorthalidone 50-25 mg tablet Active 0 .ROUTE .COMPLEX May 15, 2024 12:22pm TAKE 1 TABLET BY MOUTH EVERY DAY Start: 92-77-7374okdt 1 tablet by mouth once dailyatenolol-chlorthalidone (Tenoretic) 50-25 MG tablet Take 1 tablet by mouth Daily 02/15/2024 ActiveStart: 11-20-2023 End: 61-64-9263yhzl 1 tablet by mouth once dailyAtenolol-Chlorthalidone 50-25 mg tablet Active 0 .ROUTE .COMPLEX 90 May 01, 2025 12:51pm TAKE 1 TABLET BY MOUTH EVERY DAY Complies with drug therapyStart: 11-20-2023 End: 82-60-0516hbua 1 tablet by mouth once dailyAtenolol-Chlorthalidone 50-25 mg tablet Discontinued 0 .ROUTE .COMPLEX 90 November 20, 2023 12:09pm May 15, 2024 12:23pm TAKE 1 TABLET BY MOUTH EVERY DAYStart: 91-99-3840wkos 1 tablet by mouth once dailyAtenolol-Chlorthalidone Active 0 .ROUTE .COMPLEX 90 November 20, 2023 1:09pm TAKE 1 TABLET BY MOUTH EVERY DAYStart: 11-20-2023 End: 74-70-3462vaxe 1 tablet by mouth once dailyAtenolol-Chlorthalidone 50-25 mg tablet Discontinued 1 TAB PO Daily November 19, 2023 11:00pm November 20, 2023 12:09pmStart: 10-44-3612yraj 1 tablet by mouth once dailyAtenolol-Chlorthalidone 50-25mg atenoloL-chlorthalidone 50-25mg, 1 (one) Tablet daily # 90, 08/22/2022, Ref. x1. Active oral daily for 90 *Pick strength-form from [employer] for eRX* Aug, ActiveStart: 33-63-7409gsorcjcg-chlorthalidone 50-25 MG tabletB Complex-C (b complex-vitamin c) tablet (3 sources)take 1 tablet by mouth in the morningB Complex-C (b complex-vitamin c) tablet Take 1 tablet by mouth in the morning. Activecyclobenzaprine hydrochloride 10 mg oral tablet (7 sources)Muscle RelaxantStart: 08-84-3356frhm 1 tablet by mouth three times daily as neededcyclobenzaprine 10mg cyclobenzaprine 10mg, 1 (one) Tablet three times daily, as needed # 30, 05/31/2022, No Refill. Active oral three times daily, as needed for 0 *Reorder from [employer] for eRx and Interaction Alerts* May, ActiveStart: 02-10-2021 End: 34-19-9685xasx 1 tablet by mouth at bedtime as needed for muscle spasms cyclobenzaprine 10 MG tablet Indications: Chronic pain syndrome , Myofascial pain Take 1 tablet by mouth at bedtime as needed for Muscle spasms. 30 tablet 2 04/16/2021 05/16/2021 ActivecycloSPORINE 0.5 mg/ml ophthalmic suspension (3 sources)Calcineurin Inhibitor ImmunosuppressantStart: 94-54-2895ynoq 1 drop(s) into the eye(s) in the morningRestasis 0.05 % ophthalmic emulsion Administer 1 drop into both eyes in the morning and 1 drop before bedtime. 01/11/2024 Activediclofenac sodium 75 mg delayed release oral tablet (20 sources)Nonsteroidal Anti-inflammatory DrugStart: 12-25-2023 End: 94-52-7238uhig 1 tablet by mouth twice dailyDiclofenac Sodium 75 mg tablet,delayed release (DR/EC) Active 0 .ROUTE .COMPLEX 60 July 1:41pm TAKE 1 TABLET BY MOUTH TWICE A DAY Complies with drug therapyStart: 02-05-2021 End: 67-22-4704wgue 1 tablet by mouth twice dailyDiclofenac Sodium 75 mg tablet,delayed release (DR/EC) Discontinued 75 MG PO Twice daily December 24, 2023 11:00pm December 25, 2023 11:59amdocosahexaenoic acid 120 mg / eicosapentaenoic acid 180 mg oral capsule (3 sources)omega-3 1000 MG capsule capsule Take by mouth Vfwwlo49 ml methocarbamol 100 mg/ml injection (7 sources)Muscle RelaxantStart: 74-17-2033qorryg 1 g by intramuscular injection every eight [...] mg oral tablet (6 sources)Sympathomimetic Amine AnorecticStart: 10-12-5383Wskavzuosci (Adipex- P) 37.5 mg tablet Active 37.5 MG PO Daily 30 July 22, 2025 12:00am Cl ass 1 obesity with body mass index (BMI) of 34.0 to 34.9 in adult Obesity, class 1 Body mass index [BMI] 34.0-34.9, adult must administer 30 minutes before or 1- 2 hours after breakfast Complies with drug therapyStart: 09-16-2024 End: 73-62-8893vufy 1 tablet by mouth once daily before breakfastPhentermine 37.5 mg tablet Discontinued 37.5 MG PO Daily September 16, 2024 12:00am September 16, 2024 3:23pm FreeTextSi tablet before breakfast Orally Once a day; Note: Source Status: Refill; Refills: 0; Qty: 30 Tablet; Provider: Tawnya Monet Start: 01-65-4215bwre 1 tablet by mouth once daily before breakfastAdipex-P 37.5 MG 1 tablet before breakfast Orally Once a day for 30 days Aug, Active Start: 17-88-0525hbjl 1 tablet by mouth once daily before breakfastAdipex-P 37.5 MG 1 tablet before breakfast Orally Once a day for 30 days Jul, Active tadalafil 20 mg oral tablet (5 sources)Phosphodiesterase 5 InhibitorStart: 09-92-3078uumw 1 tablet by mouth once as neededTadalafil 20 mg tablet Active 20 MG PO Once September 16, 2024 12:00am FreeTextSi tablet prn; Note: Source Status: Taking; Provider: Tawnya Castorena ( ) Complies with drug therapyCialis 20 MG 1 tablet prn Njhjka0320 mg testosterone 0.0162 mg/mg topical gel (11 sources)AndrogenStart: 16-47-8387Zwdkbrtqbsrp (Androgel) 1.62 % (20.25 mg/1.25 gram) gel in packet Active 1 PACKET TRANSDERML Daily September 16, 2024 12:00am apply to max area of ONE upper arem and shoulder Complies with drug therapyStart: 86-30-1866Fzokiyenxiru 20.25 MG/ACT (1.62%) gel APPLY 2 PUMPS TO CLEAN, DRY, INTACT SKIN EVERY MORNING 01/30/2024 ActiveStart: 25-01-1988KovetMoh 1.62 % (20.25mg/1.25 gr AndroGeL 1.62 % (20.25mg/1.25 gr, 2 pumps daily , 05/31/2022, No Refill. Active transdermal for 0 *Reorder from [employer] for eRx and Interaction Alerts* May, ActiveStart: 30-67-2056Nzlqjguwyuvr 20.25 MG/ACT (1.62%) Gel gel APPLY 1 PUMP TOPICALLY EACH MORNING 0 01/09/2021 Active Testosterone (Androgel) 1.62 % (20.25 mg/1.25 gram) gel in packet (2 sources)Start: 30-90-9236Leqznwfhauxt (Androgel) 1.62 % (20.25 mg/1.25 gram) gel in packet Active 1 PACKET TRANSDERML Daily September 16, 2024 12:00am apply to max area of ONE upper arem and shoulderzonisamide 100 mg oral capsule (3 sources)Anti-epileptic AgentStart: 07-99-9937nvwm 1 capsule by mouth once dailyZonisamide 100 mg capsule Active 100 MG PO Daily September 16, 2024 12:00am Complies with drug therapy Completed/Discontinued Medications MedicationDrug Class(es)DatesSig (Normalized)Sig (Original)benzonatate 200 mg oral capsule (2 sources)Non-narcotic AntitussiveStart: 10-16-2024 End: 88-76-3534flat 1 capsule by mouth three times daily as needed for cough Benzonatate 200 mg capsule Discontinued 200 MG PO Three times daily as needed for cough 30 10 0 October 16, 2024 12:00am July 22, 2025 1:32pm Influenza due to influenza virus, type A, humandoxepin hydrochloride 10 mg oral capsule (6 sources)Tricyclic AntidepressantStart: 09-16-2024 End: 14-71-9990iior 2 capsules by mouth once dailyDoxepin 10 mg capsule Discontinued 20 MG PO Daily September 16, 2024 12:00am July 22, 2025 1:33pm Start: 65-77-6896lbqm 1 capsule by mouth once daily at bedtimedoxepin (SINEquan) 10 MG capsule Indications: JOSÉ (obstructive sleep apnea) , Hypersomnia , PLMD (periodic limb movement disorder) TAKE 1 TO 2 CAPSULES BY MOUTH EVERY DAY AT BEDTIME 180 capsule 1 03/18/2024 ActiveDULoxetine 30 mg delayed release oral capsule (20 sources)Serotonin and Norepinephrine Reuptake InhibitorStart: 12-20-2023 End: 43-51-5541sirx 1 capsule by mouth once dailyDuloxetine 30 mg capsule,delayed release(DR/EC) Discontinued 0 .ROUTE .COMPLEX 90 0 December 04, 2024 9:23am July 22, 2025 1:41pm TAKE 1 CAPSULE BY MOUTH EVERY DAYStart: 12-20-2023 End: 49-81-7748edlr 1 capsule by mouth once dailyDuloxetine 30 mg capsule,delayed release(DR/EC) Discontinued 30 MG PO Daily December 19, 2023 11:00pmApril 2023 8:30amStart: 02-18-2021 End: 15-98-8107spji 1 capsule by mouth once dailyDULoxetine (Cymbalta) [address] Particles capsule DR Indications: Lumbar radiculopathy , Spinal stenosis of cervical region , Chronic pain syndrome Take 1 capsule by mouth daily. 30 capsule 1 02/18/2021 03/17/2021 Discontinued (Reorder)Start: 02-11-2021 End: 33-50-5867wsjh 1 capsule by mouth once dailyDULoxetine [address] Particles capsule DR Indications: Lumbar radiculopathy , Spinal stenosis of cervical region , Chronic pain syndrome Take 1 capsule by mouth daily. 30 capsule 2 03/17/2021 Ozkiei67 ml lidocaine hydrochloride 20 mg/ml injection (2 sources)Antiarrhythmic, Amide Local AnestheticStart: 04-16-2021 End: 89-21-8151ijktwmmrh 2 % injection 100 mgStart: 04-16-2021 End: 57-92-9948twdpnjoaq 2 % injection 100 mglidocaine 1% (PF) (XYLOCAINE MPF) 10 mL syringe (2 sources)Start: 02-16-2021 End: 03-57-6393bsvsxufsw 1% (PF) (XYLOCAINE MPF) 10 mL syringeoseltamivir 75 mg oral capsule (2 sources)Neuraminidase InhibitorStart: 10-16-2024 End: 68-60-5824khed 1 capsule by mouth twice dailyOseltamivir (Tamiflu) 75 mg capsule Discontinued 75 MG PO Twice daily 10 5 0 October 16, 2024 12:00am July 22, 2025 1:33pm Influenza due to influenza virus, type A, human tiZANidine 4 mg oral tablet (3 sources)Central alpha-2 Adrenergic AgonistStart: 09-16-2024 End: 03-48-7802vwmt 1 tablet by mouth once daily at bedtime as neededTizanidine 4 mg tablet Discontinued 4 MG PO Daily at bedtime as needed September 16, 2024 12:00am July 22, 2025 1:34pm Problems Active Problems Problem ClassificationProblemDateDocumented DateEpisodic/ChronicDeficiency and other anemia (4 sources)Anemia; Translations: [Anemia, unspecified]81-69-3072Qdeyvidp Deficiency and other anemia (4 sources)Iron deficiency anemia; Translations: [Iron deficiency anemia, unspecified]08-39-9495JqqbiycaDdjdqeuug of lipid metabolism (2 sources)Mixed hyperlipidemia; Translations: [Mixed hyperlipidemia]Chronic Essential hypertension (4 sources)Essential hypertension; Translations: [Essential (primary) hypertension]Onset: 124034-24-4377QpjivtcLvariivxw (3 sources)Influenza due to Influenza A virus; Translations: [Influenza due to other identified influenza virus with other respiratory manifestations] 52-01-8450JpvnqgtiGgwzl endocrine disorders (4 sources)Testicular hypofunction; Translations: [TESTICULAR HYPOFUNCTION] Onset: 64-58-1348SncrarpHeqdp nervous system disorders (3 sources)Chronic pain syndrome; Translations: [Chronic pain syndrome]Chronic Other nervous system disorders (2 sources)Chronic pain; Translations: [Other chronic pain]ChronicOther nervous system disorders (1 source)Other chronic painChronicOther nutritional; endocrine; and metabolic disorders (2 sources)Obese class I; Translations: [Obesity, unspecified]Onset: 03-17-2021 40-05-9333RgeetwnGdrfk nutritional; endocrine; and metabolic disorders (3 sources)Body [...] index (BMI) of 34.0 to 34.9 in adult]75-47-3749PvvczebCzqmi screening for suspected conditions (not mental disorders or infectious disease) (8 sources)Encounter for screening for malignant neoplasm of prostate; Translations: [Blood chemistry abnormal]Onset: 411258-78-8191Xtsmefyd Residual codes; unclassified (6 sources)Obstructive sleep apnea syndrome; Translations: [Obstructive sleep apnea (adult) (pediatric)]Onset: 548265-08-7698MgqylpbZdlitbcn codes; unclassified (1 source)Obstructive sleep apnea (adult) (pediatric)ChronicResidual codes; unclassified (4 sources)Periodic limb movement disorder; Translations: [Periodic limb movement disorder]Onset: 409152-95-3035SuxrrwfYplarwxq codes; unclassified (4 sources)Hypersomnia; Translations: [Hypersomnia, unspecified]Onset: 003210-33-3908NflagjtLxlstdla codes; unclassified (1 source)Drug compliance good; Translations: [...] sources)Right upper quadrant pain; Translations: [Epigastric pain]Onset: 74-65-0452YajmkamyZguve connective tissue disease (4 sources)Myofascial pain; Translations: [Myalgia, other site]EpisodicOther lower respiratory disease (4 sources)Snoring; Translations: [Snoring]Onset: 915175-52-5466Ldcljusu Unclassified (1 source)Low back pain, unspecified M54.50 Results Test NameValueInterpretationReference RangeFacilityBasophils Auto (Bld) [#/Vol] Ordered By: Christian Pablo on 64-62-6201Zkpbwhydg (Bld) [#/Vol]0.1 10 3/uL0.0-0.1 [facility] HospitalBasophils/100 WBC Auto (Bld)Ordered By: Christian Pablo on 43-74-5501Fwlhxpnok/100 WBC (Bld)1.4 %0.2-2.0[facility] HospitalCholesterol in LDL Calc [Mass/Vol]Ordered By: Efrain Bowling on 07-08-2025 Cholesterol in LDL [Mass/Vol]120.0 mg/dLLutheran HospitalComment on above:<100 mg/dl QHDYMWO953-394 mg/dl NEAR OR ABOVE TSANNHJ747-693 mg/dl BORDERLINE PEGZ283-353 mg/dl HIGH>190 mg/dl VERY HIGHCholesterol in VLDL Calc [Mass/Vol]Ordered By: Efrain Bowling on 50-74-0456Ivaikqmwdck in VLDL [Mass/Vol] 28.8 mg/dLLutheran HospitalEosinophils/100 WBC Auto (Bld)Ordered By: Christian Pablo on 63-91-6092Rrnthrnczod/100 WBC (Bld)6.1 %0.9-7.0[facility] HospitalErythrocyte distribution width Auto (RBC) [Ratio]Ordered By: Christian Pablo on 32-64-1172Cxqmuqihfwt distribution width (RBC) [Ratio]14.2 % 11.0-15.0[facility] HospitalGlobulin Calc (S) [Mass/Vol]Ordered By: Christian Pablo on 86-36-0831Tjskjctq (S) [Mass/Vol]3.6 g/dLLutheran HospitalGlomerular filtration rate (GFR) estimation in non- AmericanOrdered By: Christian Pablo on 15-15-9100GLO/1.73 sq M.predicted among non- blacks MDRD (S/P/Bld) [Vol rate/Area]51 mL/min/{1.73_m2}Low>=60 mL/min/1.73m 2 [facility] HospitalHematocrit Auto (Bld) [Volume fraction]Ordered By: Christian Pablo on 80-66-6410Qaymqxblrn (Bld) [Volume fraction]46.8 %42.0-54.0 [facility] HospitalHemoglobin [Mass/volume] in BloodOrdered By: Christian Pablo on 59-40-9640Kbkhdbobhm (Bld) [Mass/Vol]15.6 g/dL14.0-18.0[facility] HospitalLaboratory - Chemistry and Chemistry - challengeOrdered By: Christian Pablo on 21-56-9116Dpjooui [Mass/Vol]3.9 g/dL3.4-5.0[facility] HospitalALP [Catalytic activity/Vol]82 U/F75-145UhrkywguyLutheran HospitalALT [Catalytic activity/Vol]66 U/TNlxs02-62IxnaxfwlkLutheran HospitalAST [Catalytic activity/Vol]34 U/N57-98CoqxlzxhaLutheran Hospital Bilirubin [Mass/Vol]0.5 mg/dL0.2-1.0[facility] HospitalCalcium [Mass/Vol]9.8 mg/dL8.5-10.1FWhite HospitalChloride [Moles/Vol] 102 mmol/D50-745MwjakiaxzLutheran HospitalCO2 [Moles/Vol]27.1 mmol/L 21.0-32.0[facility] HospitalCreatinine [Mass/Vol]1.44 mg/dLHigh 0.70-1.30[facility] HospitalGFR/1.73 sq M.predicted MDRD (S/P/Bld) [Vol rate/Area]mL/min/{1.73_m2}>=60 mL/min/1.73m 2FWhite HospitalGlucose [Mass/Vol]100 mg/jU15-222YzimvrqlqLutheran Hospital Potassium [Moles/Vol]3.8 mmol/L3.5-5.1FWhite HospitalProtein [Mass/Vol]7.5 g/dL6.4-8.2FWilson Memorial Hospitalodium [Moles/Vol]139 mmol/Q096-275HrqprxqgoLutheran HospitalUrea nitrogen [Mass/Vol]16.0 mg/dL 7.0-18.0[facility] HospitalUrea nitrogen/Creatinine [Mass ratio] 11.1 mg/mgLutheran HospitalLaboratory - Chemistry and Chemistry - challengeOrdered By: Efrain Bowling on 68-28-9790Tycjaykdpsm [Mass/Vol]184 mg/dL <=200L[facility] HospitalCholesterol in HDL [Mass/Vol]36 mg/dLLow 40-60L[facility] HospitalComment on above:> or =60 mg/dl - LOW CARDIOVASCULAR RISK<40 mg/dl - HIGH CARDIOVASCULAR RISKTriglyceride [Mass/Vol] 144 mg/dL<=150Lutheran HospitalLaboratory - Hematology and Cell countsOrdered By: Christian Pablo on 67-65-3067Jkhhtbtf granulocytes/100 WBC (Bld)0.2 %0.0-0.5FWhite HospitalLeukocytes [#/volume] corrected for nucleated erythrocytes in Blood by Automated counOrdered By: Christian Pablo on 21-81-7487FAZ corrected for nucl RBC Auto (Bld) [#/Vol]8.0 10 3/uL4.0-11.0 [facility] HospitalLymphocytes Auto (Bld) [#/Vol]Ordered By: Christian Pablo on 34-33-2232Ufgdukudgxd (Bld) [#/Vol]3.6 10 3/uL1.2-3.8[facility] HospitalLymphocytes/100 WBC Auto (Bld)Ordered By: Christian Pablo on 38-88-9403Tjixradkxpk/100 WBC (Bld)44.6 %20.5-60.0[facility] Auto (RBC) [Entitic mass]Ordered By: Christian Pablo on 95-36-5386VCN (RBC) [Entitic mass]27.8 pg25.9-34.0[facility] CenterHC Auto (RBC) [Mass/Vol]Ordered By: Christian Pablo on 27-53-1512BOUE (RBC) [Mass/Vol]33.3 g/dL 29.9-35.2FWhite HospitalMCV Auto (RBC) [Entitic vol]Ordered By: Christian Pablo on 61-20-0299ORH (RBC) [Entitic vol]83.4 fL80.0-94.0[facility] HospitalMonocytes Auto (Bld) [#/Vol]Ordered By: Christian Pablo on 47-12-5917Iahmzvaqf (Bld) [#/Vol]0.7 10 3/uL0.3-0.8[facility] HospitalMonocytes/100 WBC Auto (Bld)Ordered By: Christian Pablo on 07-08-2025 Monocytes/100 WBC (Bld)8.3 %1.7-12.0[facility] HospitalNeutrophils Auto (Bld) [#/Vol]Ordered By: Christian Pablo on 53-60-4198Ibjnbsjbukh (Bld) [#/Vol] 3.2 10 3/uL1.4-6.5FWhite HospitalNeutrophils/100 WBC Auto (Bld)Ordered By: Christian Pablo on 13-72-5400Oeegzugubxm/100 WBC (Bld)39.4 %Low 43.0-75.0[facility] HospitalNo Panel InformationOrdered By: Christian Pablo on 45-27-9811Uypufiklgjq # (Auto)0.5 10 3/uL0.0-0.7FWhite HospitalImmature Granulocyte # (Auto)0.02 10 3/uL0.00-0.03L[facility] HospitalProstate Specific Antigen Screen1.21 ng/mL<=4.00L[facility] HospitalNo Panel InformationOrdered By: Chata Page on 07-08-2025 Testosterone Hpukn512 ng/cC172-620OticwimqzLutheran HospitalComment on above:Adult male reference interval is based on a population ofhealthy nonobese males (BMI <30) between 19 and 39 yearsold. bouchra Quinones.al. JCEM 2017,102;1161- 1173. PMID:[id number].Performed at: [address] [id number] Director: Checo Pitts PhD, Phone: [phone] mean volume Auto (Bld) [Entitic vol]Ordered By: Christian Pablo on 62-95-2643Swntkbtu mean volume (Bld) [Entitic vol]9.9 fL9.5-13.5FWhite Hospital Platelets Auto (Bld) [#/Vol]Ordered By: Christian Pablo on 73-48-1485Gcsdrmsjh (Bld) [#/Vol]312 10 3/rS488-568KrxpzrmwqLutheran HospitalRBC Auto (Bld) [#/Vol] Ordered By: Christian Pablo on 96-48-2471NSL (Bld) [#/Vol]5.61 10 6/uL4.70-6.10 [facility] Limaerum or plasma albumin/globulin mass ratio Ordered By: Christian Pablo on 41-37-2843Fvrwjut/Globulin [Mass ratio]1.1 {ratio} [facility] Hospital Limaerum or plasma anion gap determinationOrdered By: Christian Pablo on 14-53-6353Aqbog gap [Moles/Vol]13.7 mmol/LFWilson Memorial Hospitalerum or plasma total cholesterol/high density lipoprotein (HDL) cholesterol mass ratOrdered By: Efrain Bowling on 07-08-2025 Cholesterol.total/Cholesterol in HDL [Mass ratio]5.1 {ratio}[facility] HospitalComment on above:3.3 - 4.4 LOW RISK4.4 - 7.1 AVERAGE RISK7.1 - 11.0 MODERATE RISK>11.0 HIGH RISKNo Panel InformationOrdered By: Geovanna Clarke on 12-99-5495Ifxxm Strep (POC)[facility] Office/Clinic Noteon 25-01-3904Jlnshjw Office/Clinic NoteUrology Office/Clinic Note Chief Complaint Patient in office for f/u with blood work HPI Staff Manuel is a 54 yo male pt here today for a 1 yr f/u w/Testosterone Levels. Previous DX: male hypogonadism, BPH, impotence *Cialis 10mg PRN, Androgel 2 pumps qd. Patient had BW done at [facility] on 07/29/24 and 07/30/24. PSA was [...] 324 07/19/21 - 754 07/20/23 - 366 ([phone]) 07/29/24 - 464 07/30/24 - Hgb 16.5 [...] prior, remains low. Pt states that [facility] labs have dropped, has [...] acel/tetanus adult 02/08/2013 Gi (more content not included)...[facility] HospitalComment on above:Result Comment: Electronically Signed By: Camilo FERMIN, Chata Pope.br\Date and Time Signed: 07/31/24 08:33ESTBasophils Auto (Bld) [#/Vol]on 34-91-1972Iciehgsvl (Bld) [#/Vol] Automated basophil count0.0-0.1FWhite HospitalBasophils/100 WBC Auto (Bld)on 04-34-6802Ctnjljewe/100 WBC (Bld)Automated basophil %0.2-2.0 [facility] HospitalCholesterol in LDL Calc [Mass/Vol]on 07-30-2024 Cholesterol in LDL [Mass/Vol]Cholesterol in LDL [Mass/volume] in Serum or Plasma by calculationLutheran HospitalComment on above:<100 mg/dl IEMBMXF306-335 mg/dl NEAR OR ABOVE VRNQWCT118-167 mg/dl BORDERLINE ZKLB751-128 mg/dl HIGH>190 mg/dl VERY HIGHCholesterol in VLDL Calc [Mass/Vol]on 07-30-2024 Cholesterol in VLDL [Mass/Vol]Cholesterol in VLDL [Mass/volume] in Serum or Plasma by calculationLutheran HospitalEosinophils/100 WBC Auto (Bld)on 52-30-5409Tzkeubeogdq/100 WBC (Bld)Automated eosinophil %Low0.9-7.0 [facility] HospitalErythrocyte distribution width Auto (RBC) [Ratio]on 89-18-1157Doivjlzxzqp distribution width (RBC) [Ratio]Erythrocyte distribution width [Ratio] by Automated count11.0-15.0[facility] HospitalEstimated glomerular filtration rate (GFR) non- Americanon 09-45-3912DUG/1.73 sq M.predicted among non-blacks MDRD (S/P/Bld) [Vol rate/Area]Estimated glomerular filtration rate (GFR) non- AmericanLow>=60 mL/min/1.73m 2FWhite HospitalGlobulin Calc (S) [Mass/Vol]on 77-89-7082Goaoreae (S) [Mass/Vol]Serum globulin measurement by calculation (mass/volume)[facility] HospitalGlucose mean value [Mass/volume] in Blood Estimated from glycated hemoglobinon 58-67-8937Oqthnpm glucose Estimated from glycated hemoglobin (Bld) [Mass/Vol]Glucose mean value [Mass/volume] in Blood Estimated from glycated hemoglobinLutheran HospitalHematocrit Auto (Bld) [Volume fraction]on 98-72-3607Rgzakvpvya (Bld) [Volume fraction]Hematocrit [Volume Fraction] of Blood by Automated count 42.0-54.0L[facility] HospitalHemoglobin [Mass/volume] in Bloodon 13-93-9418Eylukrjdww (Bld) [Mass/Vol]Hemoglobin [Mass/volume] in Blood14.0-18.0 [facility] HospitalLaboratory - Chemistry and Chemistry - challengeon 60-69-5286Dephkyq [Mass/Vol]3.5 g/dL3.4-5.0[facility] HospitalALP [Catalytic activity/Vol]76 U/J58-033OcnezrcmiLutheran HospitalALT [Catalytic activity/Vol]69 U/OJcnm17-30GwiuqtzpsLutheran HospitalAST [Catalytic activity/Vol]22 U/D99-54MxuvvnphdLutheran Hospital Bilirubin [Mass/Vol]1.1 mg/dLHigh0.2-1.0[facility] HospitalCalcium [Mass/Vol]9.3 mg/dL8.5-10.1FWhite HospitalChloride [Moles/Vol]99 mmol/O25-624CtvhwjrunLutheran HospitalCholesterol [Mass/Vol]171 mg/dL<=200L[facility] HospitalCholesterol in HDL [Mass/Vol]56 mg/eJ79-20NhzvliknyLutheran HospitalComment on above:> or =60 mg/dl - LOW CARDIOVASCULAR RISK<40 mg/dl - HIGH CARDIOVASCULAR RISKCO2 [Moles/Vol]28.8 mmol/L21.0-32.0[facility] HospitalCreatinine [Mass/Vol]1.50 mg/dLHigh0.70-1.30[facility] HospitalGFR/1.73 sq M.predicted MDRD (S/P/Bld) [Vol rate/Area]59 mL/min/{1.73_m2}Low>=60 mL/min/1.73m 2FWhite HospitalGlucose [Mass/Vol]96 mg/tI97-062 [facility] HospitalPotassium [Moles/Vol]3.4 mmol/LLow3.5-5.1 [facility] HospitalProtein [Mass/Vol]7.3 g/dL6.4-8.2FWilson Memorial Hospitalodium [Moles/Vol]137 mmol/M521-240ZnnoglauyLutheran HospitalTriglyceride [Mass/Vol]68 mg/dL<=150L[facility]an HospitalTSH Qn2.119 m[IU]/L0.358-3.740L[facility]an HospitalUrea nitrogen [Mass/Vol]27.0 mg/dLHigh7.0-18.0[facility] HospitalUrea nitrogen/Creatinine [Mass ratio]18.0 mg/mgLutheran Hospital Laboratory - Hematology and Cell countson 73-32-2494FaL1x (Bld) [Mass fraction] 5.6 %4.5-6.2FWhite HospitalComment on above:ADA RECOMMENDED LIMIT 4.0 - 6.0ADA THERAPEUTIC TARGET < 7.0ACTION SUGGESTED> 7.0Immature granulocytes/100 WBC (Bld)0.6 %High0.0-0.5FWhite Hospital Leukocytes [#/volume] corrected for nucleated erythrocytes in Blood by Automated counon 72-78-4729SNO corrected for nucl RBC Auto (Bld) [#/Vol]Leukocytes [#/volume] corrected for nucleated erythrocytes in Blood by Automated counHigh 4.0-11.0[facility] HospitalLymphocytes Auto (Bld) [#/Vol]on 84-99-1935Bfxjceemfqn (Bld) [#/Vol]Lymphocytes [#/volume] in Blood by Automated countHigh1.2-3.8L[facility] HospitalLymphocytes/100 WBC Auto (Bld) on 03-22-5991Wklidsfhpjk/100 WBC (Bld)Lymphocytes/100 leukocytes in Blood by Automated count20.5-60.0[facility] CenterH Auto (RBC) [Entitic mass]on 64-51-7613LUB (RBC) [Entitic mass]MCH [Entitic mass] by Automated count 25.9-34.0L[facility]an HospitalMCHC Auto (RBC) [Mass/Vol]on 43-86-7835RBKV (RBC) [Mass/Vol]MCHC [Mass/volume] by Automated count29.9-35.2 [facility] HospitalMCV Auto (RBC) [Entitic vol]on 00-62-2370YFQ (RBC) [Entitic vol]MCV [Entitic volume] by Automated count80.0-94.0[facility] HospitalMonocytes Auto (Bld) [#/Vol]on 48-22-4865Iejjuzjln (Bld) [#/Vol]Automated blood monocyte countHigh0.3-0.8[facility] HospitalMonocytes/100 WBC Auto (Bld)on 17-29-3259Xpibueyst/100 WBC (Bld)Automated monocyte %1.7-12.0[facility] HospitalNeutrophils Auto (Bld) [#/Vol]on 34-60-0887Uuelghtliyj (Bld) [#/Vol]Neutrophils [#/volume] in Blood by Automated countHigh1.4-6.5FWhite HospitalNeutrophils/100 WBC Auto (Bld)on 98-59-9103Qlxzresbzcq/100 WBC (Bld)Automated neutrophil %43.0-75.0 [facility] HospitalNo Panel Informationon 37-04-1710Pvnyouvedjy # (Auto)0.1 10 3/uL0.0-0.7FWhite HospitalImmature Granulocyte # (Auto)0.09 10 3/uLHigh0.00-0.03[facility] HospitalProstate Specific Antigen Screen0.65 ng/mL<=4.00L[facility] HospitalPlatelet mean volume Auto (Bld) [Entitic vol]on 56-72-2586Qwjslelp mean volume (Bld) [Entitic vol]Platelet mean volume [Entitic volume] in Blood by Automated count Low9.5-13.5FWhite HospitalPlatelets Auto (Bld) [#/Vol]on 65-88-8402Flenkwvhi (Bld) [#/Vol]Platelets [#/volume] in Blood by Automated -820XsknmpfbuLutheran HospitalRBC Auto (Bld) [#/Vol]on 07-30-2024 RBC (Bld) [#/Vol]Erythrocytes [#/volume] in Blood by Automated count4.70-6.10 [facility] Limaerum or plasma albumin/globulin mass ratioon 83-62-0490Jthsckr/Globulin [Mass ratio]Serum or plasma albumin/globulin mass ratioSCCI Hospital Limaerum or plasma anion gap determinationon 83-43-0026Jkxir gap [Moles/Vol]Serum or plasma anion gap determinationSCCI Hospital Limaerum or plasma total cholesterol/high density lipoprotein (HDL) cholesterol mass spencer 35-76-5783Pctfuaygses.total/Cholesterol in HDL [Mass ratio]Serum or plasma total cholesterol/high density lipoprotein (HDL) cholesterol mass ratLutheran HospitalComment on above:3.3 - 4.4 LOW RISK4.4 - 7.1 AVERAGE RISK7.1 - 11.0 MODERATE RISK>11.0 HIGH RISK Hematocrit Auto (Bld) [Volume fraction]on 64-64-0039Rdumsktazr (Bld) [Volume fraction]Hematocrit [Volume Fraction] of Blood by Automated count42.0-54.0 [facility] HospitalNo Panel Informationon 45-82-4795Wudmfzdtbdcy Slucx857 ng/xP530-502GydjnbbruLutheran HospitalComment on above:Adult male reference interval is based on a population ofhealthy nonobese males (BMI <30) between 19 and 39 yearsold. Joni et.al. JCEM 2017,102;1759-3990. PMID:[id number].Performed at: [address] [id number] Director: Checo Pitts PhD, Phone: [phone] [Mass/volume] in Serum or Plasmaon 77-12-4889Wwlnxzp [Mass/Vol]3.7 g/dL2.9-4.4 [facility] HospitalBasophils Auto (Bld) [#/Vol]on 12-26-2023 Basophils (Bld) [#/Vol]0.1 10 3/uL0.0-0.1FWhite Hospital Basophils/100 WBC Auto (Bld)on 59-85-8940Uhqrwskfs/100 WBC (Bld)0.7 %0.2-2.0 [facility] HospitalEosinophils/100 WBC Auto (Bld)on 12-26-2023 Eosinophils/100 WBC (Bld)3.0 %0.9-7.0[facility] Erythrocyte distribution width Auto (RBC) [Ratio]on 19-55-1883Uvouiakofva distribution width (RBC) [Ratio]21.4 %11.0-15.0[facility] Hematocrit Auto (Bld) [Volume fraction]on 21-21-8757Wtbryyistu (Bld) [Volume fraction]47.9 %42.0-54.0[facility] HospitalHemoglobin [Mass/volume] in Bloodon 75-30-3663Svhatnuxnl (Bld) [Mass/Vol]15.7 g/dL14.0-18.0 [facility] HospitalIgA [Mass/volume] in Serum or Plasmaon 22-05-6839GdA [Mass/Vol]232 mg/fT49-785VndjuvgckLutheran HospitalIgG [Mass/volume] in Serum or Plasmaon 77-30-4138FqB [Mass/Vol]1144 mg/zL690-1173 [facility] HospitalIgM [Mass/volume] in Serum or Plasmaon 72-95-1387GmG [Mass/Vol]79 mg/cC97-287TyoyujyfvLutheran HospitalLon 99-57-4798FNhirbhpy: Received: 12/27/23 Status: KELSIE Wade Num: [id number] Spec Type: Impression Subm Dr: Margaux Estrada MD Tissues: PATHPER Procedures: PATHREVIEW Age/ Patient Sex Location Account Attending Physician Manuel Burgos 53/M LABELL [id number] Margaux Estrada MD SPEC NUM: RECD: 12/27/23 STATUS: KELSIE WADE NUM: [id number] MAYRA: 12/26/[address]: Margaux Estrada MD ENTERED: 12/27/23 [facility] DR: Chase Oropeza SPEC TYPE: Impression DEPT: KELSIE Jackson ENTERED BY: [id number] RECV BY: [id number] ORDERED: PATHREVIEW ORDERED: PATHREVIEW Pathologist Review Occasional atypical lymphocytes are noted. Atypical infection should be ruled out. Specimen: Received: 12/27/23 Status: KELSIE Wade Num: [id number] Spec Type: Impression Subm Dr: Margaux Estrada MD Tissues: PATHPER Procedures: PATHREVIEW Patient: Manuel Burgos [id number] (Continued) Signed (signature on file) Elroy Hutchins MD 12/27/[address] [place] [address] Physician GroupLaboratory - Chemistry and Chemistry - challengeon 07-85-9341XVP [Catalytic activity/Vol]211 U/L85-227 [facility] HospitalProtein [Mass/Vol]0.2 g/dLNot ObservedLutheran HospitalLaboratory - Hematology and Cell countson 12-26-2023 Immature granulocytes/100 WBC (Bld)0.2 %0.0-0.5FWhite Hospital Leukocytes [#/volume] corrected for nucleated erythrocytes in Blood by Automated counon 42-25-2577WDK corrected for nucl RBC Auto (Bld) [#/Vol]9.7 10 3/uL 4.0-11.0L[facility] HospitalLymphocytes Auto (Bld) [#/Vol]on 26-36-6045Qpezdabgyat (Bld) [#/Vol]3.5 10 3/uL1.2-3.8L[facility] HospitalLymphocytes/100 WBC Auto (Bld)on 27-39-4978Fwiutxgookf/100 WBC (Bld)36.4 % 20.5-60.0L[facility] HospitalMCH Auto (RBC) [Entitic mass]on 24-02-5284WCC (RBC) [Entitic mass]27.5 pg25.9-34.0L[facility]an HospitalMCHC Auto (RBC) [Mass/Vol]on 96-06-8557QXMK (RBC) [Mass/Vol]32.8 g/dL 29.9-35.2FWhite HospitalMCV Auto (RBC) [Entitic vol]on 02-51-4622VNG (RBC) [Entitic vol]84.0 fL80.0-94.0[facility] HospitalMonocytes Auto (Bld) [#/Vol]on 65-26-3943Xmcggmhlf (Bld) [#/Vol]0.7 10 3/uL0.3-0.8L[facility] HospitalMonocytes/100 WBC Auto (Bld)on 69-94-2045Lxfjwzqpc/100 WBC (Bld)7.5 %1.7-12.0[facility] Neutrophils Auto (Bld) [#/Vol]on 57-26-8618Xgfgzwftwqa (Bld) [#/Vol]5.1 10 3/uL 1.4-6.5FWhite HospitalNeutrophils/100 WBC Auto (Bld)on 78-27-1266Xueyoceiotu/100 WBC (Bld)52.2 %43.0-75.0[facility] HospitalNo Panel Informationon 62-33-3656Lfxlqiwsalf # (Auto)0.3 10 3/uL0.0-0.7 [facility] HospitalImmature Granulocyte # (Auto)0.02 10 3/uL 0.00-0.03L[facility] HospitalProtein Electrophoresis NoteComment. Lutheran HospitalComment on above:Protein electrophoresis scan will follow via computer,mail, or fire prevention chief delivery.Performed at: [facility] [employer] [id number] Director: Checo Pitts PhD, Phone: [phone] mean volume Auto (Bld) [Entitic vol]on 12-26-2023 Platelet mean volume (Bld) [Entitic vol]10.0 fL9.5-13.5FWhite HospitalPlatelets Auto (Bld) [#/Vol]on 95-38-6707Bmnpikfut (Bld) [#/Vol] 269 10 3/dR430-134IrxwmscrkLutheran HospitalProtein [Mass/volume] in Serum or Plasmaon 67-66-5386Dyzgfzs [Mass/Vol]6.9 g/dL6.0-8.5FWhite HospitalRBC Auto (Bld) [#/Vol]on 78-93-3165QAC (Bld) [#/Vol]5.70 10 6/uL 4.70-6.10[facility] Limaerum globulin measurement (mass/volume)on 82-63-4470Svmoymhw (S) [Mass/Vol]3.2 g/dL2.2-3.9[facility] Hospital Limaerum or plasma albumin/globulin mass ratioon 12-26-2023 Albumin/Globulin [Mass ratio]1.2 {ratio}0.7-1.7FWhite Hospital Serum or plasma alpha 1 globulin measurement by electrophoresis (mass/volume)on 31-56-0076Kexsa 1 globulin Elph [Mass/Vol]0.2 g/dL0.0-0.4FWilson Memorial Hospitalerum or plasma alpha 2 globulin measurement by electrophoresis (mass/volume)on 49-01-0130Xhbjl 2 globulin Elph [Mass/Vol]0.7 g/dL0.4-1.0 [facility] Limaerum or plasma beta globulin measurement by electrophoresis (mass/volume)on 51-32-3465Qpqn globulin Elph [Mass/Vol]1.5 g/dL 0.7-1.3FWilson Memorial Hospitalerum or plasma gamma globulin measurement by electrophoresis (mass/volume)on 18-11-0796Vtyjx globulin Elph [Mass/Vol]0.9 g/dL0.4-1.8[facility] Limaerum or plasma immunoelectrophoresis interpretationon 21-85-9337Vqtjqlzojyrrbs IEP [Interp] Comment.Lutheran HospitalComment on above:Immunofixation shows IgG monoclonal protein with lambdalight chain specificity.Basophils Auto (Bld) [#/Vol]on 63-43-5332Nzeynieap (Bld) [#/Vol]0.1 10 3/uL0.0-0.1FWhite HospitalBasophils/100 WBC Auto (Bld)on 30-89-6935Mfptbuvgm/100 WBC (Bld) 1.1 %0.2-2.0L[facility] HospitalEosinophils/100 WBC Auto (Bld)on 38-88-8597Qresilbdnrn/100 WBC (Bld)3.3 %0.9-7.0[facility] Erythrocyte distribution width Auto (RBC) [Ratio]on 10-56-0359Urwhmrfmsqz distribution width (RBC) [Ratio]21.6 %11.0-15.0[facility] Hematocrit Auto (Bld) [Volume fraction]on 74-03-6059Ryegdmxlto (Bld) [Volume fraction]45.7 %42.0-54.0[facility] HospitalHemoglobin [Mass/volume] in Bloodon 14-35-3486Bawjbmehqw (Bld) [Mass/Vol]14.9 g/dL14.0-18.0 [facility] HospitalIron binding capacity [Mass/volume] in Serum or Plasmaon 55-25-7249Cbgo binding capacity [Mass/Vol]370.0 ug/dL250.0-450.0 [facility] HospitalIron saturation [Mass Fraction] in Serum or Plasmaon 63-11-7504Fghy saturation [Mass fraction]37.6 %[facility] HospitalLaboratory - Chemistry and Chemistry - challengeon 12-19-2023 Ferritin [Mass/Vol]31.0 ng/mL26.0-388.0L[facility]an HospitalIron [Mass/Vol]139.0 ug/dL65.0-175.0[facility] HospitalLaboratory - Hematology and Cell countson 35-12-3705Gjcmxsxx granulocytes/100 WBC (Bld)0.5 % 0.0-0.5FWhite HospitalLeukocytes [#/volume] corrected for nucleated erythrocytes in Blood by Automated counon 19-62-0710RIE corrected for nucl RBC Auto (Bld) [#/Vol]9.4 10 3/uL4.0-11.0[facility] Lymphocytes Auto (Bld) [#/Vol]on 31-57-3037Cvluqyoayxa (Bld) [#/Vol]3.3 10 3/uL 1.2-3.8L[facility] HospitalLymphocytes/100 WBC Auto (Bld)on 47-19-8733Ujnjlvjlzke/100 WBC (Bld)34.5 %20.5-60.0[facility] CenterH Auto (RBC) [Entitic mass]on 72-50-9143RTK (RBC) [Entitic mass]26.8 pg 25.9-34.0L[facility]an HospitalMCHC Auto (RBC) [Mass/Vol]on 51-85-2498FNFV (RBC) [Mass/Vol]32.6 g/dL29.9-35.2FWhite HospitalMCV Auto (RBC) [Entitic vol]on 85-67-1460MJI (RBC) [Entitic vol]82.2 fL 80.0-94.0[facility] HospitalMonocytes Auto (Bld) [#/Vol]on 10-11-5276Kgczeuvqo (Bld) [#/Vol]0.9 10 3/uL0.3-0.8[facility] HospitalMonocytes/100 WBC Auto (Bld)on 24-43-7114Xhguajfhr/100 WBC (Bld)9.2 % 1.7-12.0Lutheran HospitalNeutrophils Auto (Bld) [#/Vol]on 87-01-0667Ofyaqplenxo (Bld) [#/Vol]4.9 10 3/uL1.4-6.5FWhite HospitalNeutrophils/100 WBC Auto (Bld)on 01-15-5653Jwogyyqsavg/100 WBC (Bld)51.4 % 43.0-75.0[facility] HospitalNo Panel Informationon 12-19-2023 Eosinophils # (Auto)0.3 10 3/uL0.0-0.7FWhite HospitalImmature Granulocyte # (Auto)0.05 10 3/uL0.00-0.03[facility] Miscellaneous TestCOMMENT.Lutheran HospitalComment on above:Test Ordered: [id number] Hgb Fractionation CascadeHgb F 0.0 % CB Reference Range: 0.0- 2.0Hgb A 97.8 % CB Reference Range: 96.4-98.8Hgb A2 2.2 % CB Reference Range: 1.8-3.2Hgb S 0.0 % CB Reference Range: 0.0Interpretation: Comment CB Reference Range: .Normal hemoglobin present; no hemoglobin variant or betathalassemia identified.Note: Alpha thalassemia may not be detected by the HgbFractionation [place] panel. If alpha thalassemia issuspected, [facility] offers Alpha- Thalassemia DNA Analysis(#[id number]).Performed at: - [address] [id number] Director: Checo Pitts PhD, Phone: [phone] Platelet mean volume Auto (Bld) [Entitic vol]on 58-26-5590Ybfgklac mean volume (Bld) [Entitic vol]9.4 fL9.5-13.5FWhite HospitalPlatelets Auto (Bld) [#/Vol]on 76-74-8147Kfpfyqiwt (Bld) [#/Vol]299 10 3/mX528-101VgauipalxLutheran HospitalRBC Auto (Bld) [#/Vol]on 71-57-0885VFM (Bld) [#/Vol]5.56 10 6/uL4.70-6.10L[facility]an HospitalBasophils Auto (Bld) [#/Vol]on 84-83-6526Btthdnjvt (Bld) [#/Vol]0.1 10 3/uL0.0-0.1FWhite HospitalBasophils/100 WBC Auto (Bld)on 15-62-4310Alambsibt/100 WBC (Bld)0.9 % 0.2-2.0Lutheran HospitalEosinophils/100 WBC Auto (Bld)on 85-97-2701Mlfxyojerms/100 WBC (Bld)3.2 %0.9-7.0[facility] Erythrocyte distribution width Auto (RBC) [Ratio]on 43-69-1151Flebcjivudg distribution width (RBC) [Ratio]17.4 %11.0-15.0[facility] Hematocrit Auto (Bld) [Volume fraction]on 36-69-2481Uavizmxloy (Bld) [Volume fraction]43.5 %42.0-54.0L[facility]an HospitalHemoglobin [Mass/volume] in Bloodon 39-40-4043Bwkuuxqmng (Bld) [Mass/Vol]13.2 g/dL14.0-18.0 [facility] HospitalLaboratory - Chemistry and Chemistry - challengeon 79-24-7498Gwpiesjno (Vitamin B12) [Mass/Vol]986.0 pg/mL193.0-986.0 [facility] HospitalFerritin [Mass/Vol]14.0 ng/mL26.0-388.0 [facility] HospitalLaboratory - Hematology and Cell countson 90-37-8309Vzozusrd granulocytes/100 WBC (Bld)0.2 %0.0-0.5FWhite HospitalLeukocytes [#/volume] corrected for nucleated erythrocytes in Blood by Automated counon 89-91-0192DIY corrected for nucl RBC Auto (Bld) [#/Vol]10.0 10 3/uL4.0-11.0Lutheran HospitalLymphocytes Auto (Bld) [#/Vol]on 58-37-6452Gmecjhwpbgr (Bld) [#/Vol]3.6 10 3/uL1.2-3.8Lutheran HospitalLymphocytes/100 WBC Auto (Bld)on 11-08-2023 Lymphocytes/100 WBC (Bld)35.5 %20.5-60.0Lutheran HospitalMCH Auto (RBC) [Entitic mass]on 95-66-1445VRL (RBC) [Entitic mass]23.9 pg25.9-34.0 Lutheran HospitalMCHC Auto (RBC) [Mass/Vol]on 41-29-9630ZKGD (RBC) [Mass/Vol]30.3 g/dL29.9-35.2FWhite HospitalMCV Auto (RBC) [Entitic vol]on 36-49-6468IZM (RBC) [Entitic vol]78.7 fL80.0-94.0L[facility]an HospitalMonocytes Auto (Bld) [#/Vol]on 17-14-0445Tthuswihu (Bld) [#/Vol]0.9 10 3/uL0.3-0.8L[facility] HospitalMonocytes/100 WBC Auto (Bld)on 84-98-0248Exbndosgf/100 WBC (Bld)8.5 %1.7-12.0Lutheran HospitalNeutrophils Auto (Bld) [#/Vol]on 79-84-6015Icgypnkqyul (Bld) [#/Vol]5.2 10 3/uL1.4-6.5FWhite HospitalNeutrophils/100 WBC Auto (Bld)on 01-95-9042Efyafsmrope/100 WBC (Bld)51.7 %43.0-75.0[facility] HospitalNo Panel Informationon 40-52-8286Rwnxxqqncut # (Auto)0.3 10 3/uL0.0-0.7FWhite HospitalFolate19.60 ng/mL8.60-58.90 Luther[facility] HospitalImmature Granulocyte # (Auto)0.02 10 3/uL 0.00-0.03L[facility]an HospitalPlatelet mean volume Auto (Bld) [Entitic vol]on 00-40-4934Twwlhrgn mean volume (Bld) [Entitic vol]9.4 fL9.5-13.5 [facility] HospitalPlatelets Auto (Bld) [#/Vol]on 11-08-2023 Platelets (Bld) [#/Vol]384 10 3/qM192-473PmdbpkrxuLutheran HospitalRBC Auto (Bld) [#/Vol]on 28-49-6854CEX (Bld) [#/Vol]5.53 10 6/uL4.70-6.10L[facility]an HospitalTESTOSTERONE, TOTALon 09-61-6234Dblbewwaqdff [Mass/Vol] 487 ng/aGHhvdyi979-384Pqk City HospitalComment on above:Result Comment: Adult male reference interval is based on a population of healthy nonobese males (BMI <30) between 19 and 39 years old. Joni et.al. JCEM 2017,102;8487-1181. PMID: [id number].Performed By: #### TESTTOT #### [facility] [address] [address] [address] Mychal Shine SINGLE QUAD RT UPPERon 64-28-5848QN SINGLE QUAD RT UPPER EXAMINATION: US SINGLE [...] Electronically authenticated by: CHRISTOFER SCHAEFFER Date: 2022-08-25 07:07[facility] CenterTESTOSTERONE, TOTALon 42-87-8110Faubngaefedx [Mass/Vol]410 ng/hWYaoewt415-903Haf City HospitalComment on above:Result Comment: Adult male reference interval is based on a population of healthy nonobese males (BMI <30) between 19 and 39 years old. bouchra Quinones.al. JCEM 2017,102;4006-1546. PMID: [id number].Performed By: #### TESTTOT #### [facility] [address] [place] [address] Dr. Mychal KimC AUTO DIFFon 15-02-5933YNXB #0.1 103/ulNormal0.0-0.1The City HospitalComment on above:Performed By: #### CBC #### [facility] [address] [place] [address] Dr. Mychal OropezaBasophils/100 WBC (Bld)0.9 %Normal0.2-2.0[facility] Comment on above:Performed By: #### CBC #### [facility] [address] [place] [address] Dr. Mychal Florence #0.7 103/ulNormal0.0-0.7The City HospitalComment on above: Performed By: #### CBC #### [facility] [address] [place] [address] Dr. Mychal Silvermanosinophils/100 WBC (Bld)6.7 %Normal0.9-7.0[facility] Comment on above:Performed By: #### CBC #### [facility] [address] [place] [address] Dr. Mychal Silvermanrythrocyte distribution width (RBC) [Ratio]12.8 %Rgzgkr43.0-15.0 The City HospitalComment on above:Performed By: #### CBC #### [facility] [address] [place] [address] Dr. Mychal OropezaHematocrit (Bld) [Volume fraction]46.9 %Uqoynz79.0-54.0The City HospitalComment on above:Performed By: #### CBC #### [facility] [address] [place] [address] Dr. Mychal OropezaHemoglobin (Bld) [Mass/Vol]16.2 g/uPGjxyvw31.0-18.0The City HospitalComment on above:Performed By: #### CBC #### [facility] [address] [place] [address] Dr. Mychal Roberts #0.04 10e3/ulCritically high0.00-0.03[facility] Comment on above:Performed By: #### CBC #### [facility] [address] [place] [address] Dr. Mychal Roberts %0.4 %Normal0.0-0.5The City HospitalComment on above: Performed By: #### CBC #### [facility] [address] [place] [address] Dr. Mychal Rice #4.1 103/ulCritically high1.2-3.8ThChildren's Hospital of [facility] Comment on above:Performed By: #### CBC #### [facility] [address] [place] [address] Dr. Mychal Backmphocytes/100 WBC (Bld)37.7 %Ikanov51.5-60.0[facility] CampusComment on above:Performed By: #### CBC #### [facility] [address] [place] [address] Dr. Mychal Ospina DIFF REQNONormalThe City HospitalComment on above: Performed By: #### CBC #### [facility] [address] [place] [address] Dr. Mychal Hu (RBC) [Entitic mass]30.7 ebObgitw75.9-34.0The City HospitalComment on above:Performed By: #### CBC #### [facility] [address] [place] [address] Dr. Mychal Hu (RBC) [Mass/Vol]34.5 g/mOOlaqwm89.9-35.2The City HospitalComment on above:Performed By: #### CBC #### [facility] [address] [place] [address] Dr. Mychal Sutherland (RBC) [Entitic vol]88.8 bDLmyxal16.0-94.0The City HospitalComment on above:Performed By: #### CBC #### [facility] [address] [place] [address] Dr. Mychal Goodwin #0.9 103/ulCritically high0.3-0.8ThChildren's Hospital of [facility] Comment on above:Performed By: #### CBC #### [facility] [address] [place] [address] Dr. Mychal Correiaocytes/100 WBC (Bld)8.1 %Normal1.7-12.0[facility] Comment on above:Performed By: #### CBC #### [facility] [address] [place] [address] Dr. Yilan ChangNEUT #5.1 103/ulNormal1.4-6.5The City HospitalComment on above:Performed By: #### CBC #### [facility] [address] [place] [address] Dr. Mychal Patelutrophils/100 WBC (Bld)46.2 %Rtobqm14.0-75.0[facility] CampusComment on above:Performed By: #### CBC #### [facility] [address] [place] [address] Dr. Mychal OropezaPlatelet mean volume (Bld) [Entitic vol]9.7 fLNormal9.5-13.5The City HospitalComment on above:Performed By: #### CBC #### [facility] [address] [place] [address] Dr. Mychal OropezaPLT308 103/mbHemkyg464-284Nhr City HospitalComment on above: Performed By: #### CBC #### [facility] [address] [place] [address] Dr. Mychal OropezaRBC5.28 106/ulNormal4.70-6.10The City HospitalComment on above:Performed By: #### CBC #### [facility] [address] [place] [address] Dr. Mychal OropezaWBC10.9 103/ulNormal4.0-11.0[facility] CampusComuniversity of mich[facility] health on above:Performed By: #### CBC #### [facility] [address] [place] [address] Dr. Mychal OropezaGLYCOHEMOGLOBIN A1Con 89-99-6696IWC RECOMMENDATIONSEE BELOWNormal The City HospitalComment on above:Result Comment: ADA RECOMMENDED LIMIT 4.0 - 6.0 ADA THERAPEUTIC TARGET < 7.0 ACTION SUGGESTED > 7.0Performed By: #### A1C #### [facility] [address] [place] [address] Dr. Mychal OropezaGlucose [Mass/Vol]108 mg/dLNormalThChildren's Hospital of ColumbusComment on above:Performed By: #### A1C #### [facility] [address] [place] [address] Dr. Mychal OropezaHbA1c (Bld) [Mass fraction]5.4 %Normal4.5-6.2The [facility] on above:Performed By: #### A1C #### [facility] [address] [place] [address] Dr. Mychal OjedaID PROFILEon 15-45-1312VIZI-HDL RATIO NORMSEE BELOWOhioHealth Southeastern Medical CenterComment on above:Result Comment: 3.3 - 4.4 LOW RISK 4.4 - 7.1 AVERAGE RISK 7.1 - 11.0 MODERATE RISK >11.0 HIGH RISKPerformed By: #### TSH, LIPID, CMP #### [facility] [address] [place] [address] Dr. Mychal Vasquezesterol [Mass/Vol]207 mg/dLCritically high<=200The [facility] on above:Performed By: #### TSH, LIPID, CMP #### [facility] [address] [place] [address] Dr. Mychal Vasquezesterol in HDL [Mass/Vol]47 mg/qZVgayps24-65Coh [facility] on above:Performed By: #### TSH, LIPID, CMP #### [facility] [address] [place] [address] Dr. Mychal Vasquezesterol in LDL [Mass/Vol]122.4 mg/dLSt. Mary's Medical Center on above:Performed By: #### TSH, LIPID, CMP #### [facility] [address] [place] [address] Dr. Mychal Winslow.total/Cholesterol in HDL [Mass ratio]4.4 {ratio} NormalThe [facility] on above:Performed By: #### TSH, LIPID, CMP #### [facility] [address] [place] [address] Dr. Mychal StuartL NORMAL> or = 60 mg/dl - LOW CARDIOVASCULAR RISK <40 mg/dl - HIGH CARDIOVASCULAR RISKOhioHealth Southeastern Medical CenterComment on above:Performed By: #### TSH, LIPID, CMP #### [facility] [address] [place] [address] Dr. Mychal Esparza CALC NORMALSEE BELOWOhioHealth Southeastern Medical CenterComment on above:Result Comment: <100 mg/dl OPTIMAL 100 - 129 mg/dl NEAR OR ABOVE OPTIMAL 130 - 159 mg/dl BORDERLINE HIGH 160 - 189 mg/dl HIGH >190 mg/dl VERY HIGH Performed By: #### TSH, LIPID, CMP #### [facility] [address] [place] [address] Dr. Mychal OropezaTriglyceride [Mass/Vol]188 mg/dLCritically high<=150The City HospitalComuniversity of [facility] health on above:Performed By: #### TSH, LIPID, CMP #### [facility] [address] [place] [address] Dr. Mychal OropezaVLDL CALC37.6 mg/dLNoAdams County HospitalComment on above: Performed By: #### TSH, LIPID, CMP #### [facility] [address] [place] [address] Dr. Mychal OropezaPROJarek 14(COMP METB)on [id number] [Mass/Vol]3.9 g/dLNormal 3.4-5.0The [facility] on above:Performed By: #### TSH, LIPID, CMP #### [facility] [address] [place] [address] Dr. Mychal OropezaAlbumin/Globulin [Mass ratio]1.1 {ratio}NormalThe [facility] HospitalCom[facility] on above:Performed By: #### TSH, LIPID, CMP #### [facility] [address] [place] [address] Dr. Mychal Amin [Catalytic activity/Vol]77 U/[id number] [facility] on above:Performed By: #### TSH, LIPID, CMP #### [facility] [address] [place] [address] Dr. Mychal Ortiz [Catalytic activity/Vol]56 U/[id number] [facility] on above:Performed By: #### TSH, LIPID, CMP #### [facility] [address] [address] [address] Mychal Tam gap [Moles/Vol]8.6 mmol/LNormalThe City HospitalComment on above:Performed By: #### TSH, LIPID, CMP #### [facility] [address] [address] [address] Mychal OropezaAST [Catalytic activity/Vol]30 U/[id number] City HospitalComment on above:Performed By: #### TSH, LIPID, CMP #### [facility] [address] [place] [address] Dr. Mychal OropezaBilirubin [Mass/Vol]0.6 mg/dLNormal0.2-1.0[facility] Comment on above:Performed By: #### TSH, LIPID, CMP #### [facility] [address] [place] [address] Dr. Mychal OropezaCalcium [Mass/Vol]9.2 mg/dLNormal8.5-10.1[facility] Comment on above:Performed By: #### TSH, LIPID, CMP #### [facility] [address] [address] [address] Mychal OropezaChloride [Moles/Vol]100 mmol/GSrunte36-014Zqg [facility] Comment on above:Performed By: #### TSH, LIPID, CMP #### [facility] [address] [place] [address] Dr. Mychal OropezaCO2 [Moles/Vol]30.0 mmol/OVblizq41.0-32.0[facility] Comment on above:Performed By: #### TSH, LIPID, CMP #### [facility] [address] [place] [address] Dr. Mychal OropezaCreatinine [Mass/Vol]1.37 mg/dLCritically high0.70-1.30The [facility] HospitalComment on above:Performed By: #### TSH, LIPID, CMP #### [facility] [address] [place] [address] Dr. Horta ChangEGFR-AF SOUTH AFRICAN>60Normal>=60The City HospitalComment on above:Performed By: #### TSH, LIPID, CMP #### [facility] [address] [place] [address] Dr. Mychal SilvermanGFR-NON AF WOLJWLBM28 mL/min/1.16v0Sccjpnryce low>=60The City HospitalComment on above:Performed By: #### TSH, LIPID, CMP #### [facility] [address] [place] [address] Dr. Mychal OropezaGlobulin (S) [Mass/Vol]3.7 g/dLNormalThe City HospitalComment on above:Performed By: #### TSH, LIPID, CMP #### [facility] [address] [place] [address] Dr. Mychal OropezaGlucose [Mass/Vol]111 mg/dLCritically gaat30-861Cst City HospitalComment on above:Performed By: #### TSH, LIPID, CMP #### [facility] [address] [place] [address] Dr. Mychal OropezaPotassium [Moles/Vol]3.6 mmol/LNormal3.5-5.1[facility] Comment on above:Performed By: #### TSH, LIPID, CMP #### [facility] [address] [place] [address] Dr. Mychal OropezaProtein [Mass/Vol]7.6 g/dLNormal6.4-8.2[facility] Comment on above:Performed By: #### TSH, LIPID, CMP #### [facility] [address] [place] [address] Dr. Mychal OropezaSodium [Moles/Vol]135 mmol/LCritically kph198-811Irl City HospitalComment on above:Performed By: #### TSH, LIPID, CMP #### [facility] [address] [place] [address] Dr. Mychal OropezaUrea nitrogen [Mass/Vol]14.0 mg/dLNormal7.0-18.0The City HospitalComment on above:Performed By: #### TSH, LIPID, CMP #### [facility] [address] [place] [address] Dr. Mychal OropezaUrea nitrogen/Creatinine [Mass ratio]10.2 mg/mgNormalThe City HospitalComment on above:Performed By: #### TSH, LIPID, CMP #### [facility] [address] [address] [address] Mychal OropezaTSHon 67-49-3067TUK1.907 uIU/mLNormal0.358-3.740The City HospitalComment on above:Performed By: #### TSH, LIPID, CMP #### [facility] [address] [address] [address] Mychal OropezaTESTOSTERONE, TOTALon 11-48-5426Jybdfphyrczz [Mass/Vol]324 ng/dL Ovtyhq756-678Ouq City HospitalComuniversity of mich[facility] health on above:Result Comment: Adult male reference interval is based on a population of healthy nonobese males (BMI <30) between 19 and 39 years old. Joni et.al. JCEM 2017,102;4090-5721. PMID: [id number].Performed By: #### TESTTOT #### [facility] [address] [place] [address] Dr. Mychal OropezaXR SPINE CERVICAL WITH OBL AND FLEX/EXTon 77-37-0856HS SPINE CERVICAL WITH OBL AND FLEX/EXTEXAM: XR [...] There is fair flexion. No instability is noted.[facility] HospitalXR SPINE LUMBAR W BENDINGon 34-69-3896ED SPINE LUMBAR W BENDINGEXAM: XR SPINE LUMBAR [...] a very good range of motion without instability.[facility] HospitalXR SPINE LUMBAR W BENDINGOrdered By: Maik Barbosa on 02-10-2021 IMPRESSION: Lumbar spine visually is fairly well preserved. There is no evidence of fracture, listhesis, significant disc space narrowing or major degenerative changes. There is a very good range of motion without instability.[facility] SystemEXAM: XR SPINE LUMBAR W BENDING HISTORY: [...] of motion. There is no listhesis or instability.[facility] SystemUser, Interfaces - 02/10/2021 4:52 PM EDT [...] very good range of motion without instability. [facility] Vital Signs Date TimeVital SignValuePerforming WoxltwtbrZjcrgjrw10-26-5530 13:29-0500Body .18 cmEfrain Bowling MD Work Phone: [phone]55[facility]11-11-2025 13:29-0500 Body mass index (BMI) [Ratio]34.9 kg/h7MssqqcEfrain Bowling MD Work Phone: 1(084)133-[address] [place], [place] 0441711-11-2025 13:29-0500 Body .26 kgEfrain Bowling MD Work Phone: [phone]11-11-2025 13:29-0500 Diastolic blood yvxfincx14 mm[Hg]Efrain Bowling MD Work Phone: [phone]11-11-2025 13:29-0500 Heart rate74 /minEfrain Bowling MD Work Phone: 1(057)163-[address] [place], [place] 0441711-11-2025 13:29-0500 Systolic blood afduwixa893 mm[Hg]Efrain Bowling MD Work Phone: [phone]02-05-2025 14:24-0500 Body axpwwy791.18 cmL[facility]an Hospital02-05-2025 14:24-0500Body mass index (BMI) [Ratio]35.2 kg/j6DpuvasavaLutheran Hospital02-05-2025 14:24-0500Body lmxsoanzxop27.7 [degF][facility]02-05-2025 14:24-0500Body owtsgl452.2 kgLutheran Hospital02-05-2025 14:24-0500Diastolic blood pqfabphl22 mm[Hg][facility] 10-16-2024 14:24-0500Heart rate86 /minLutheran Hospital 10-16-2024 14:24-2055EdV4% (BldA) [Mass fraction]96 %[facility]02-05-2025 14:24-0500Systolic blood wzrydckg914 mm[Hg][facility]01-06-2025 15:18-0500Body qcjavb740.18 cmLutheran Hospital01-06-2025 15:18-0500Body mass index (BMI) [Ratio]34.7 kg/m2 [facility]01-06-2025 15:18-0500Body ykxiyb935.69 kg [facility]01-06-2025 15:18-0500Diastolic blood wqkkotgf12 mm[Hg][facility]01-06-2025 15:18-0500Heart rate70 /min [facility]01-06-2025 15:18-0500Systolic blood mkfhqinj277 mm[Hg][facility]09-04-2024 15:36-0400Body uenwpw332.7 cm Anika Frazier [employer] TENDER Work Phone: noChildren's Mercy HospitalWaznyydthd61-21-3211 15:36-0400Diastolic blood ulrdqbpt77 mm[Hg]Anika Frazier [employer] TENDER Work Phone: [facility] HospitalLjumypwmya24-98-5719 15:36-0400Heart rate70 /min Anika Carpenterr [employer] TENDER Work Phone: noChildren's Mercy HospitalSafwsropuq64-39-7593 15:36-6425VtR8% (BldA) [Mass fraction]94 %Anika Frazier [employer] TENDER Work Phone: noChildren's Mercy HospitalYfrpdquxgp76-56-4647 15:36-0400Systolic blood zoimdusj097 mm[Hg]Anika Frazier [employer] T[employer]ER Work Phone: [facility] HospitalXrattvucjo44-88-8141 15:30-0500Body yjqyrg614.18 cmEfrain Tawnya Other [facility] EHR Other 12-21-2023 15:30-0500Body mass index (BMI) [Ratio] 33.04 kg/w2Aykjjl Tawnya Other [facility] EHR Other 12-21-2023 15:30-0500Body uoglch59.71 kgJacklynlemuel Tawnya Other [facility] EHR Other 12-21-2023 15:30-0500Diastolic blood rvcjsirr44 mm[Hg] Efrain Bowling Other [facility] EHR Other 12-21-2023 15:30-0500Systolic blood ikakkjvq106 mm[Hg] Efrain Bowling Other [facility] EHR Other 11-21-2023 08:30-0500Body tcdvij981.18 cmJacklynlemuel Bowling Other [facility] EHR Other 11-21-2023 08:30-0500Body mass index (BMI) [Ratio] 35.14 kg/l0LfeqgdEfrain Bowling Other [facility] EHR Other 11-21-2023 08:30-0500Body .79 kgEfrain Bowling Other [facility] EHR Other 11-21-2023 08:30-0500Diastolic blood ozxnvyqz77 mm[Hg] Efrain Bowling Other [facility] EHR Other 11-21-2023 08:30-0500Systolic blood ewkjgzvr879 mm[Hg] Efrain Bowling Other [facility] EHR Other 08-06-2021 12:05-0400Diastolic blood qzyveuhh30 mm[Hg] Maik Barbosa MD Work Phone: [address] [place], [place] 4467208-06-2021 12:05-0400Heart rate54 /Reva Barbosa MD Work Phone: [facility]08-06-2021 12:05-0400Respiratory rate16 /Reva Barbosa MD Work Phone: 1(363)136-[address] [place], [place] 1560108-06-2021 12:05-6001GvY6% (BldA) [Mass fraction]95 %Maik Barbosa MD Work Phone: 1(525)501-[address] [place], [place] 1560108-06-2021 12:05-0400Systolic blood yytusmzh402 mm[Hg]Maik Barbosa MD Work Phone: 1(054)310-[address] [place], [place] 1560107-07-2021 08:04-0400Body height 170.2 cmAtrina Barbosa MD Work Phone: 1(339)417-[address] [place], [place] 1560107-07-2021 08:04-0400Body mass index (BMI) [Ratio]34.61 kg/j4PvqjwMaik Barbosa MD Work Phone: 1(531)765-[address] [place], [place] 1560107-07-2021 08:04-0400Body weight 100.25 kgMaik Barbosa MD Work Phone: 1(126)701-[address] [place], [place] 1560107-07-2021 08:04-0400Diastolic blood birtcpjy04 mm[Hg]Maik Barbosa MD Work Phone: 1(472)696-[address] [place], [place] 1560107-07-2021 08:04-0400Heart rate74 /Reva Barbosa MD Work Phone: 1(599)504-[address] [place], [place] 1560107-07-2021 08:04-0400Respiratory rate20 /Reva Barbosa MD Work Phone: 1(187)808-[address] [place], [place] 1560107-07-2021 08:04-7404OuU3% (BldA) [Mass fraction]96 %Maik Barbosa MD Work Phone: 1(404)124-[address] [place], [place] 1560107-07-2021 08:04-0400Systolic blood mm[Hg]aMik Barbosa MD Work Phone: 1(251)858-[address] [place], [place] 1560106-16-2021 12:02-0400Diastolic blood inehochi932 mm[Hg]Maik Barbosa MD Work Phone: 1(081)019-[address] [place], [place] 1560106-16-2021 12:02-0400Heart rate55 /Reva Barbosa MD Work Phone: 1(057)255-[address] [place], [place] 156[address]06-16-2021 12:02-0400Respiratory rate18 /Reva Barbosa MD Work Phone: 1(712)[address]06-16-2021 12:02-0146CmH0% (BldA) [Mass fraction]95 %Maik Barbosa MD Work Phone: 1(392)422-[address] [place], [place] 1560106-16-2021 12:02-0400Systolic blood pgnosebd278 mm[Hg]Maik Barbosa MD Work Phone: 1(573)081-[address] [place], [place] 1560106-02-2021 11:46-0400Body height 170.2 cmAtrina Barbosa MD Work Phone: 1(330)626-[address] [place], [place] 1560106-02-2021 11:46-0400Body mass index (BMI) [Ratio]34.61 kg/d8GqmevMaik Barbosa MD Work Phone: 1(741)463-[address] [place], [place] 1560106-02-2021 11:46-0400Body weight 100.25 kgMaik Barbosa MD Work Phone: 1(525)423-[address] [place], [place] 1560106-02-2021 11:46-0400Diastolic blood odquybri20 mm[Hg]Maik Barbosa MD Work Phone: 1(144)906-[address] [place], [place] 1560106-02-2021 11:46-0400Heart rate64 /Reva Barbosa MD Work Phone: 1(039)149-[address] [place], [place] 1560106-02-2021 11:46-0400Respiratory rate18 /Reva Barbosa MD Work Phone: 1(712)866-[address] [place], [place] 156[address]06-02-2021 11:46-9381OjA2% (BldA) [Mass fraction]99 %Maik Barbosa MD Work Phone: [facility]06-02-2021 11:46-0400Systolic blood onyceqgy543 mm[Hg]Maik Barbosa MD Work Phone: [facility] Encounters Encounter DateEncounter TypeCare ProviderFacilityStart: 53-70-0983jnswcgyjbb Chata Inman LueFacility:EU BellevueStart: 07-22-2025 End: 54-84-9943muthnaucgcCeqdrd E Braun MD Work Phone: -[facility]: 07-22-2025 End: 25-66-7161Iwnryoe encounter procedureEfrain Bowling MD-[facility] Work Phone: Start: 41-66-7226Aia-patient / Non-visitNicbecca Ambriz [facility] Work Phone: Start: 78-50-0608Ekv-patient / Non-visitBrysilvia Pablo [facility] Work Phone: Start: 05-05-2025 End: 77-07-7751ucecjbzgmvEexvisu Chandrakant Fairchild MDFacility:[facility] Start: 03-24-2025 End: 27-64-6532wkwvlkaviaGxpcdsb Vegaytpaige Giedraitis MDFacility:[facility] Start: 10-16-2024 End: 50-67-6557yihwiphvgbWfhsdlpphAvita [facility] Work Phone: Start: 10-16-2024 End: 48-45-1412Inutpep encounter procedureAshe [facility] Work Phone: Start: 09-16-2024 End: 93-02-6329hlewuwknmjCugiuqiebAvita Health System Work Phone: Start: 09-16-2024 End: 76-28-4211Espczjbxr for general adult medical examination without abnormal findingsSCCI Hospital Limatart: 09-16-2024 End: 23-47-1824Gpazmzl encounter procedureAshe Memorial Hospital Physician GroupParkview [facility] Work Phone: Start: 07-31-2024 End: 56-86-0883sbzcbzrfcrWofeh M. LueFacility:EU BellevueStart: 75-47-3764Und- patient / Non-visitAshe Memorial Hospital Physician GroupMilitary Health System Professional [facility] Work Phone: Start: 38-14-3011Kucqszz encounter statusSCCI Hospital Limatart: 98-76-1897Fxc-patient / Non-visitAshe Memorial Hospital Physician [facility] Work Phone: Start: 07-22-2024 End: 96-75-1578prvunsohvqTdhwylt Chandrakant Barillasedioana MDFacility:PM Srinath Start: 05-15-2024 End: 76-63-4767dbgwanhxpdVDKUSN MANDYNot AvailableStart: 05-15-2024 End: 52-55-6609Srkwkv outpatient visit 25 minutesAngecarito Frazier [employer]ORY HOLE TENDER Work Phone: noMS SRINATH STATE ROUTEComment on above:PLMD (periodic limb movement disorder) (Primary Dx); Hypersomnia; JOSÉ (obstructive sleep apnea); SnoringStart: 05-15-2024 End: 60-35-3100Eizvnc flowswilmanAngecarito Frazier GL[employer] HO[employer] TENDER Work Phone: noMS SRINATH STATE ROUTEStart: 05-15-2024 End: 58-06-3017Umngkf flowswilmanAngecarito Frazier GLORY HOLE TENDER Work Phone: NOMS SRIN[address] STATE ROUTEStart: 02-21-2024 End: 99-33-4851jhmcnokzjmCTZKJE PASCALENERNot AvailableStart: 12-26-2023 End: 03-77-0112dgpjditmsgDbuqtu E BraunFacility:[facility] Limatart: 89-16-1138Pgc-patient / Non-visitAs[facility] Physician [facility] Work Phone: Start: 52-83-7134Yse-patient / Non-visitAshe Memorial Hospital Physician Group-[facility] Work Phone: Start: 84-27-2686Ymd-patient / Non-visitAs[facility] Hospital [facility] Work Phone: Start: 90-78-8493Qng-patient / Non-visitAshe Memorial Hospital Physician [facility] Work Phone: Start: 10-02-2023 End: 75-14-8015Srrsvkc encounter procedureAshe Memorial Hospital Physician Group-Start: 08-31-2023 End: 68-78-7990nwmutmyrlcUmighc Braun Other [facility] EHR Other Start: 77-49-7443Puwkjm outpatient visit 15 minutes Efrain [facility] ClinicStart: 08-01-2023 End: 22-96-9504jeznquazilDfukrz Braun Other [facility] EHR Other Start: 45-38-4681Jryljjbkg for general adult medical examination without abnormal findingsMarcia [facility] ClinicStart: 26-85-4629Uhvsnero preventive med est patient 40-64yrsMarcia [facility] ClinicStart: 01-06-2023 End: 14-16-9689qgrerfptdmOA MARCIA E BRAUNFacility:V3Qsdeu: 08-24-2022 End: 58-60-7868nhitwbbxdwEY MARCIA E BRAUNFacility:I1Mbaus: 61-90-1281siwumnjptu DR EFRAIN BOWLINGFacility:H6Yckhy: 83-75-7976vfmnhatvxmEN EFRAIN BOWLING Facility:A2Jfxpg: 04-84-7154vszwttonxlAA MARCIA E BRAUNFacility:T7Lhwyd: 07-21-2022 End: 11-45-9707qdqcmlmwwrDK MEENU IsidroFacility:Y7Ozrnu: 06-20-2022 End: 69-59-3785anjmnwodptGT MARCIA E BRAUNFacility:O6Zgqco: 16-52-0878Pqzyoidxc for general adult medical examination without abnormal findingsDR EFRAIN BOWLING [facility] Ohiotart: 05-27-2022 End: 67-31-3647vvisbbictaVG MARCIA E BRAUNFacility:W5Mirbb: 05-27-2022 End: 77-73-4578Kfbeyvssi for general adult medical examination without abnormal findingsDR EFRAIN BOWLINGFacility:O2Dscag: 01-19-2022 End: 42-66-3843fwbnodxsxgZZ MARCIA E BRAUNFacility:E9Reabz: 04-16-2021 End: 49-39-2709Qpdxvtb encounter procedureaMik Barbosa MD Work Phone: [facility] Procedural Pain ManagementComment on above:Lumbar spondylosis (Primary Dx); Chronic pain syndrome; Myofascial painStart: 03-17-2021 End: 48-88-7412Dunlvy outpatient visit 15 minutesMaik Barbosa MD Work Phone: [facility] ClinicComment on above:Lumbar spondylosis (Primary Dx); Lumbar radiculopathy; Spinal stenosis of cervical region; Chronic pain syndrome; Myofascial painStart: 02-24-2021 End: 10-68-2801Ibzmtugl Support EncounterMaik Barbosa MD Work Phone: [facility] ClinicComment on above:Myofascial pain (Primary Dx)Start: 02-10-2021 End: 34-50-3958Buuiwmppxs hospital visit by physicianMaik Barbosa MD Work Phone: [facility] Diagnostic RadiologyComment on above: ArrivedStart: 02-10-2021 End: 12-86-3402Wosjpp outpatient new 45 minutesMaik Barbosa MD Work Phone: [facility] Pain ClinicComment on above:Myofascial pain (Primary Dx); Arthropathy of cervical facet joint; Spondylosis of lumbar region without myelopathy or radiculopathy; Chronic pain syndrome; Compliance with medication regimen Procedures DateProcedureProcedure DetailPerforming ClinicianStart: 08-02-0030Bloec Strep (POC)Start: 52-94-0675VUH screeningDR EFRAIN BOWLINGComment on above:Performed By: #### PSASC #### [facility] [address] [place] [address] Dr. Mychal OropezaStart: 71-95-0375Qkill spine lumbscrl compl w/bending views min 6 Maik Barbosa MD Work Phone: Plan of Treatment DateCare ActivityDetailAuthorStart: 05-21-2021 End: 75-97-3161Apcqehh encounter ufgtoidng49/10/2021 Office Visit Anesthesiology Pain Mgt Maik Barbosa MD [address] [place] [address] [facility] Procedural Pain ManagementStart: 00-42-9356RonweeaigHorizon Medical Centertart: 05-07-2021 End: 73-92-5113Aojfxqb encounter /27/2021 Office Visit Anesthesiology Pain t Maik Barbosa MD [address] [place] [address] [facility] Procedural Pain ManagementStart: 05-03-2021 End: 93-52-0856Pwhxkkp encounter xcyybaptq49/23/2021 Office Visit Anesthesiology Pain Mgt Maik Barbosa MD [address] [place] [address] [phone] [facility] ClinicStart: 04-27-2021 End: 11-34-6725Ojbdurs encounter hepvisshe97/17/2021 Office Visit Anesthesiology Pain Mgt Maik Barbosa MD [address] [place] [address] [facility] ClinicStart: 03-17-2021 End: 58-09-8929Xujlkis encounter hcwzarxob76/07/2021 Office Visit Anesthesiology Pain Mgt Maik Barbosa MD [address] [place] [address] [phone] [facility] ClinicStart: 02-24-2021 End: 14-55-4632Xkdztib encounter /16/2021 Office Visit Anesthesiology Pain Mgt Maik Barbosa MD [address] [place] [address] Deven Torres Procedural Pain ManagementStart: 02-10-2021 End: 54-59-2025NIYR SCREEN MED COMPLIANCE IDRUG SCREEN MED COMPLIANCE I Lab Routine Compliance with medication regimen Expected: 02/10/2021, Expires: 02/11/2021[facility] HospitalComment on above:Expected: 02/10/2021, Expires: 02/11/2021tart: 21-42-0165Hgdhjyen specific antigen measurementPROSTATE CANCER SCREENING DISCUSSIONSheltering Arms Hospitaltart: 59-24-1518Yajydh vaccine hzv live for subcutaneous useZOSTER (SHINGLES) VACCINE (1 of 2)[facility] Hospitaltart: 53-38-0083JdfpddyqxunMESIRROQPB CANCER SCREENING DISCUSSIONP[facility] Hospital Start: 66-26-9708Omtbtwi lipid profileLIPID SCREENINGSheltering Arms Hospitaltart: 19-67-9225Cctkt diphtheria, tetanus and acellular pertussis (DTaP) vaccination TDAP (ADULT)[facility] Hospitaltart: 16-19-4889Ytwhgbk vaccinationTETANUSAOhioHealth Marion General Hospitaltart: 00-73-8895YBF screeningHIV SCREENING DISCUSSIONSheltering Arms Hospitaltart: 18-93-8979ZRGQP-19 VACCINE (1)COVID-19 VACCINE (1)[facility] Hospitaltart: 27-76-4473Wepxeewbs C antibody, confirmatory testHEPATITIS C VIRUS SCREENINGDelaware County Hospital Payers DatePayer CategoryPayerPolicy [id number]77-39-0842Zhyhfcf [id number]ddcoamn7011 1.2.840.803257.1.13.172.2.7.3.067[id number] 2.16.840.1.846986.3.579.[id number] 2.16.840.1.671474.3.579.[id number] 2.16.840.1.648628.3.579.2.72852-00-9292Ordvrkf6757175 2.16.840.1.225943.3.579.2.77759-41-5408Hayxtxy4160965 2.840.1.605102.3.579.2.66686-61-2526Rpwrhtq8194967 2.840.1.016847.3.579.2.96874-85-5307Wvgjkqf3910610 2.840.1.860126.3.579.2.97253-43-5998Gusfgxn1876279 2.840.1.637053.3.579.2.55539-54-6002Gwpzayk7158367 2.840.1.465253.3.579.2.386193-97-7865Mjdwdrq0321597 2.840.1.199880.3.579.2.[id number] 2.840.1.443823.3.579.2.5[id number] 2.840.1.134820.3.579.[id number] 2.16840.1.734006.3.579.2.53459-07-4870Qorlsqc40017587 2.16840.1.821589.3.579.2.30072-26-0268Fjznpsy69302706 2..840.1.424843.3.579.2.65426-14-1946Isau-[id number] 2.16.840.1.73661[id number] 2.16.840.1.079358.3.579.2.531 Social History DateTypeDetailFacilityStart: 02-10-2021 End: 05-53-5259Casipic smoking status NHISNever smokerSheltering Arms Hospitaltart: 02-10-2021 End: 07-88-7017Vgqwqbp use and exposureNever usedSheltering Arms Hospitaltart: 02-10-2021 End: 03-58-1078Hzcajwo intakeCurrent drinker of alcohol (finding)[facility] Hospitaltart: 02-10-2021 End: 55-49-9653Uasjfpj intakeSheltering Arms Hospitaltart: 54-16-4010Ydduvsd Comment 5 beers/weekSheltering Arms Hospitaltart: 68-72-1357Yup Assigned At [facility] HospitalNot on file Shel[facility] Hospitaltart: 02-21-2024 End: 29-96-4032Wad Assigned At [facility] mSpoke Other Start: 92-50-6922Qls Assigned At [facility] HospitalTobacco smoking status NHISUnknown if ever smoked [facility] Work Phone: Start: 09-16-2024 End: 22-06-7767WhcWbmc (finding)[facility] Clinical Notes 02-10-2021 to 09-16-2024 Note Date & ByhdTjwzBlbhehdm66-40-5585 Evaluation note* Diagnosis Onset Date Resolution Status Admit Date Elevated serum creatinine acuteJanuary 2024 2:49pmWellness examinationacuteJanuary 2024 2:49pm Influenza AacuteFebruary 2024 2:16pm [facility] Work Phone: 1(941) 766-230811-20-2024 NotePatient Education Urology Erectile Dysfunction Erectile dysfunction [...] these instructions at home: Medicines ??? Take znnc-rba-ozdxnpd and prescription medicines only as told by [...] ??? Do not u (more content not included)...[facility]09-04-2024 History of Present illness Narrative* Anika Searsestefany, GLORY HOLE TENDER - 05/15/2024 3:30 PM EDT Images from [...] a different pressure . . . Plan [place] Sleepiness Scale is 10 Compliance download reviewed [...] was counseled on the risks of stroke, [place], and sudden with JOSÉ, along with the need for compliance with the CPAP/BiPAP treatment. The patient was counseled on proper sleep hygiene and adequate hours of sleep. Return to clinic: 3-4 months documented in this encounterSainte Genevieve County Memorial HospitalBdhxpyzjkk19-76-0440 Evaluation note* Encounter Date Diagnosis Assessment Notes [...] index [BMI] 33.0-33.9, adult (ICD-10 - Z68.33) [facility] EHR Other 11-21-2023 Evaluation note* Encounter Date Diagnosis [...] unspecified (ICD-10 - M54.50)Pt requests referral [facility]. He hopes to lessen his use of NSAIDs to improve his renal function. Jul,Other chronic pain (ICD-10 - G89.29) Jul,OSA (obstructive sleep apnea) (ICD-10 - G47.33)Form completed for [facility]. Jul,lass 2 obesity with [...] to ER and Follow-up with me immediately. [facility] EHR Other 08-06-2021 History and physical note* Maik [...] bilateral lumbar facet block documented in this [facility]08-06-2021 History of Present illness Narrative* Humera Genao RN - 04/16/2021 11:30 AM EDT SCRUB - Shellie Alaniz RN RT - S RT Zach CARD GRINDER HELPER - N/A MEDICAL ATTENDANT - Aurelio Genao RN Site cleansed with [...] and earlier as needed. [facility]08[facility] Instructions* Patient Instructions* Geovanna Degroot RN - 04/16/2021 11:30 AM EDT [facility] WHAT TO EXPECT AFTER A PROCEDURE Follow up appointment: Call the office ([phone]) if you have any questions or develop [...] you, [facility] documented in this [facility]07-07-2021 History of Present illness Narrative* Maik [...] tried OTC tylenol, celebrex with somemild relief. [place] has helped in the past, but would [...] Denies dysuria or frequency documented in this [facility]07-07-2021 Instructions* Patient Instructions* Geovanna Degroot [...] complications are extremely rare. documented in this [facility]06-16-2021 History and physical note* Maik [...] trapezius, and lumbar paraspinal documented in this [facility]06-16-2021 History of Present illness Narrative* Madina Summers RN - 02/24/2021 11:15 AM EDT PHYSICIAN - SCRUB - Kitty Martinez RN MEDICAL ATTENDANT - Madina Site cleansed with chloroprep. Procedure: [...] Denies dysuria or frequency [facility] History of Present illness Narrative* [...] Social Gatherings with Friends and Family: Attends Faith Services: Active Member of Clubs or Organizations: [...] tried OTC tylenol, celebrex with somemild relief. [employer] has helped in the past, but would [...] within the last year. [facility] Instructions* Patient Instructions* Geovanna Degroot RN [...] read the attached handout from the [employer] [place] [employer] with guidelines and recommendations for [...] complications are extremely rare. [facility] Diagnosis Myofascial pain- Primary Mylagia and myositis, unspecified Arthropathy of cervical facet joint Cervical spondylosis without myelopathy Spondylosis of lumbar region without myelopathy or radiculopathy Lumbosacral spondylosis without myelopathy Chronic pain syndrome Compliance with medication regimen [facility] Diagnosis Spondylosis of lumbar region without myelopathy or radiculopathy Lumbosacral spondylosis without myelopathy [facility] Diagnosis Myofascial pain- Primary Mylagia and myositis, unspecified [facility] Diagnosis Lumbar spondylosis- Primary Lumbosacral spondylosis without myelopathy Lumbar radiculopathy Thoracic or lumbosacral neuritis or radiculitis, unspecified Spinal stenosis of cervical region Spinal stenosis in cervical region Chronic pain syndrome Myofascial pain Mylagia and myositis, unspecified [facility] Diagnosis Lumbar spondylosis- Primary Lumbosacral spondylosis without myelopathy Chronic pain syndrome Myofascial pain Mylagia and myositis, unspecified [facility] noteNo assessment information availableAvita Health System Work Phone: Evaluation note* Diagnosis PLMD (periodic limb movement disorder)- Primary Periodic limb movement disorder Hypersomnia Hypersomnia, unspecified JOSÉ (obstructive sleep apnea) Obstructive sleep apnea (adult) (pediatric) Snoring Other dyspnea and respiratory abnormality [facility] Diagnosis Onset Date Resolution Status Admit Date Elevated serum creatinine acuteJanuary 2024 2:49pmWellness examinationacuteJanuary 2024 2:49pm [facility] Work Phone: Evaluation note* Diagnosis Onset Date Resolution Status Admit Date Class 1 obesity with body mass index (BM I) of 34.0 to 34.9 in adult acuteNovember 2024 1:25pm [facility] Work Phone: History general Narrative - Reported* Type Description Date Medical History Elevated cholesterol with elevat ed triglycerides Medical HistoryLow serum testosterone levelMedical HistoryLumbar painMedical HistoryHypertensionMedical HistoryDiverticulosisSurgical HistoryR shoulder arthroscopySurgical HistoryFB R wristSurgical HistoryUmbilical hernia repair 07/12/2023Surgical LwdudrxLupeofyjvdp75/15/2023Hospitalization HistorySEE SURGICAL HX [facility] EHR Other Reason for referral (narrative)No reason for referral information availableFirelands Regional Medical Center Work Phone: Reason for Referral StatusReasonSpecialtyDiagnoses / ProceduresReferred By ContactReferred To ContactAuth Not Needed Diagnoses Myofascial pain Chronic pain syndrome Maik Barbosa MD [address] [place] [address] Scheduling Instructions Please PA and schedule: neck and back TPI (pt will need a [address] Barbosa) Reason *FU 08/08 chronic lumbar pain, would benefit from less NSAID use. Diagnosis 1 Low back pain, unspe cified (M54.50) Referral Organization [facility] xochitl Referring Provider First Name Efrain Referring Provider Last Name Tawnya Referring Provider Specialty Family [facility] Referred Organization [facility] Referred Address [facility] [address] [place], [place],[address] Referred Provider Specialty Pain Medicin e Referral Priority Routine General Notes Es Cooper 05:14:13 PM >received today, attachments made, notes locked, referral faxed Clinical Notes f: [id number] Summary Purpose Family History Relationship Condition Age [...] Chronic pain syndrome Maik Barbosa MD [address] [phone] ReasonCommentsPainSpecialtyDiagnoses / ProceduresReferred By ContactReferred To Contact Diagnoses Lumbar facet arthropathy Maik Barbosa MD [address] [place] [address] Referral IDStatusReasonStart DateExpiration DateVisits RequestedVisits [id number] (unrecognized sect ion and content) No Status Records FoundNo Status Records FoundNo Status Records FoundNo Status Records FoundNo Status Records FoundNo Status Records Found INFORMATION SOURCE (unrecogn ized section and content) DATE CREATED AUTHOR 05/10/2021 [facility] DATE CREATED AUTHOR AUTHOR'S ORGANIZ ATION 01/13/2023 [facility] DATE CREATED AUTHOR AUTHOR'S ORGANIZ ATION 12/28/2023 [facility] DATE CREATED AUTHOR AUTHOR'S ORGANIZ ATION 05/17/2024 [facility] DATE CREATED AUTHOR AUTHOR'S ORGANIZ ATION 05/10/2025 [facility] DATE CREATED AUTHOR AUTHOR'S ORGANIZ ATION 07/18/2025 [facility] Care Teams (unrecognized sec tion [...] DateEnd Date Efrain Bowling MD [address] [place] [address] PCP - [facility]02/10/21 Team Status: Inactive Member Role Status Dates Efrain Bowling MD Attending Provider Active St art: October 02, 2023 End: October 02, 2023 Team Status: Active Member Role Status Dates Efrani Bowling MD Primary Care Provide r, Attending [...] DateEnd Date Efrain Bowling MD [address] [place] [phone] PCP - GeneralFamily Medicine02/21/24Team MemberRelationshipSpecialtyStart DateEnd Date Efrain Bowling MD [address] [place] [address] PCP - GeneralFamily Medicine02/21/24 Team Status: Inactive Member Role Status Dates Efrain Bowling MD Primary Care Provider Active Start: October 16, 2024 End: October 16, 2024Geovanna Clarke APRN [employer]-CAttending ProviderActive Start: October 16, 2024 End: October [...] BE BASED ON THE PRIMARY CLINICAL RECORDS. [facility]. provides no warranty or guarantee of the accuracy or completeness of information in this document.
--- NOTE | 2025-09-08 11:10 | PM.CN ---
Consult Note: HPI Data of Consult Patient: known to practice within the last 3 years Consult date: 09/08/25 Requesting Physician: Luis Fairchild MD Primary Care Provider: Kell Jack MD Consult Narrative Reason for consult: low back pain Narrative: 55yom who presents for assessment. endorses significant relief after recent lumbar rfa. states that he still has some pain when bending on the right, but otherwise easier to complete ADLs. cc:: CC: Luis Fairchild MD Review of Systems ROS Status of ROS 10 or more systems reviewed and unremarkable except as noted in history and below PFSH PFS Medical History Heartburn ?R12 - Heartburn (ICD-10) Umbilical hernia ?K42.9 - Umbilical hernia without obstruction or gangrene (ICD-10) H/O retained foreign body fully removed ?Z87.821 - Personal history of retained foreign body fully removed (ICD-10) Hypertension ?I10 - Essential (primary) hypertension (ICD-10) Glaucoma ?H40.9 - Unspecified glaucoma (ICD-10) Surgical History History of surgery on right wrist ?Z98.890 - Other specified postprocedural states (ICD-10) H/O arthroscopy of shoulder ?Z98.890 - Other specified postprocedural states (ICD-10) H/O colonoscopy ?Z98.890 - Other specified postprocedural states (ICD-10) Family History Aunt Family history of cancer Grandmother Family history of cancer Grandfather Family history of cancer Other Family history of diabetes mellitus Family history of hypertension Family history of myocardial infarction Social History Within the past year, how often did you have a drink containing alcohol: 2-3 times a week Within the past year, how many standard drinks containing alcohol did you have on a typical day: 5 or 6 Within the past year, how often did you have six or more drinks on one occasion: weekly Total score: 7 Score interpretation: A score of 4 or more indicates drinking is likely to affect patient's safety. 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 Highest level of school completed/degree received: Associate degree: academic program Meds Home Medications and Allergies Home Medications ?Medication ?Instructions ?Recorded ?Confirmed ?Type ascorbic acid (vitamin C) 250 mg 250 mg PO DAILY 06/22/23 08/04/25 History tablet atenolol 50 mg-chlorthalidone 25 1 tab PO DAILY 06/22/23 08/04/25 History mg tablet diclofenac sodium 75 mg 75 mg PO BID 06/22/23 08/04/25 History tablet,delayed release testosterone 1.62 % (20.25 mg/1.25 1 packet transdermal QAM 06/22/23 08/04/25 History gram) transdermal gel packet (AndroGel) vitamin B comp and C no.3 15 mg-10 1 cap PO DAILY 06/22/23 08/04/25 History mg-50 mg-5 mg-300 mg capsule (B Complex Plus Vitamin C) methocarbamol 750 mg tablet 750 mg PO TID 08/31/23 08/04/25 History hydrocodone 7.5 mg-acetaminophen See Rx Instructions .Route 07/16/24 08/04/25 Rx 325 mg tablet .COMPLEX PRN pain #20 tabs naloxone 4 mg/actuation nasal 4 mg intranasal Q3M PRN opioid 07/17/24 08/04/25 Rx spray (Narcan) overdose #2 ea zonisamide 50 mg capsule 100 mg (2 x 50 mg) PO DAILY #60 02/10/25 08/04/25 Rx caps phentermine 37.5 mg tablet 37.5 mg PO DAILY 08/04/25 08/04/25 History (Adipex-P) methocarbamol 750 mg tablet 750 mg PO TID #90 tabs 08/11/25 Rx zonisamide 50 mg capsule See Rx Instructions .Route 08/11/25 Rx .COMPLEX #60 caps Allergies Allergy/AdvReac Type Severity Reaction Status Date / Time No Known Drug Allergies Allergy Verified 08/04/25 12:42 Exam Narrative Exam Narrative: Psych-alert and oriented x 3. Attentive and appropriate, constitutionally normal, displays normal mood and affect per situation.? There are no obvious deficits in memory, reasoning, or intellect.? Skin-no obvious rashes, bruising, erythema noted to the patient's area of pain. Extremities- extremities are warm with minimal edema and palpable pulses. Lumbar-no significant tenderness to palpation noted in the lumbar spine and paraspinal musculature.? Pain is elicited with extension, and lateral rotation of the lumbar spine. Range of motion is slightly diminished with these motions due to pain. Coordination remains intact.? Gait remains non-antalgic. Assessment and Plan Assessment and Plan (1) Lumbar stenosis with neurogenic claudication: (2) Lumbar spondylosis: Plan 55yom who presents for assessment. endorses significant relief after recent lumbar rfa. discussed that residual pain likely a consequence of disc protrusions with resultant stenosis. given that he is doing well at this point, will defer any plans for now. will follow up as needed.
== END 2025-09-08 10:35 | disposition home or self-care (01) ==
LOC: PM 10:34
PROVIDERS: PCP Family Medicine; Visit Provider Anesthesiology
DX: M48.062 Spinal stenosis, lumbar region with neurogenic claudication (principal); M47.816 Spondylosis without myelopathy or radiculopathy, lumbar region
CPT/HCPCS: G0463